=== PATIENT | female | born 1935 | race Caucasian/White ===

== ENCOUNTER 2017-02-06 23:16 | Emergency (ER) | payer OTHER, MEDICARE ==
[~2017-02-06] VITALS: Ht 167.6 cm; Wt 69.0 kg
[~2017-02-06 23:16] MED LIST: ALEN70TA4 PO; ALPR0.25 PO; ATOR-24 PO; AZIT-57 PO; CALC0.2510 PO; CARB25TA16 PO; ENAL1TAB31 PO; HYDR-4717 PO; INSDGIPEN SC; LEVO25TA PO; LSX/40 PO; METF500T5 PO; NVLGIPEN SC; OMEG120013 PO; SOTA120T PO; WARF1TAB6 PO; WARF5TAB7 PO
[2017-02-06 23:21] VITALS: TEMP 36.6; Ht 167.6 cm; Wt 69.0 kg
--- NOTE | 2017-02-06 23:34 | EMERGENCY ROOM VISIT NOTE ---
History Report prepared by Alix: Elio Phillips Under the Supervision of: Dr. Andrae Mina M.D. First contact with patient: 23:25 Chief Complaint: URINARY SYMPTOMS Stated Complaint: URINARY PROBLEMS History of Present Illness The patient is a 81 year old female who presents to the Emergency Room with complaints of persistent dysuria that started earlier today. The patient states that she is on her way to [place] from [place]. She stopped in [place] to visit her grandchildren. The patient notes that she has recently recovered from a GI bug. She denies fevers, back pain, abdominal pain, or any additional associated symptoms. Source of History: patient Onset: Earlier today Position: other (Urinary System ) Timing: other (Persistent ) Modifying Factors (Worsening): other (None) Associated Symptoms: No fevers, No abdominal pain, No back pain Review of Systems See HPI for pertinent positives & negatives. A total of 6 systems reviewed and were otherwise negative. Past Medical & Surgical Medical Problems: (1) Hypertension (2) Hypomagnesemia (3) Upper respiratory infection, acute (4) Urinary tract infection Family History FH: diabetes mellitus FH: hypertension Social History Smoking Status: Never Smoker Alcohol Use: none Drug Use: none Housing Status: lives alone Occupation Status: retired Current/Historical Medications Scheduled Alendronate Sodium (Fosamax), 70 MG PO WK Alprazolam (Xanax), 0.25 MG PO DAILY Atorvastatin (Lipitor), 20 MG PO QPM Azithromycin (Azithromycin), 250 MG PO QAM Calcitriol (Rocaltrol Cap), 0.25 MCG PO DAILY Cephalexin Monohydrate (Keflex), 500 MG PO TID Enalapril Maleate (Vasotec), 1 TAB PO BID Furosemide (Lasix), 40 MG PO DAILY Hydralazine Hcl (Apresoline), 50 MG PO BID Insulin Aspart (Novolog Flexpen), 0 UNITS SC ACHS Insulin Glargine (Lantus Solostar), 20 UNIT SC QAM Levodopa/Carbidopa (Sinemet Cr 25MG/100MG), 1 TAB PO HS Levothyroxine Sodium (Synthroid), 25 MCG PO DAILY Metformin Hcl Er (Glucophage Er), 500 MG PO DAILY [place]-3 Fatty Acids (Fish Oil), 1,200 MG PO DAILY@1400 Sotalol Hcl (Sotalol Hcl), 120 MG PO BID Warfarin Sod (Jantoven), 1 MG PO 5XWK Warfarin Sod (Jantoven), 5 MG PO DAILY Allergies Coded Allergies: Levofloxacin (Unverified Allergy, Unknown, NAUSEA, 08/21/15) Propofol (Unverified Allergy, Unknown, NAUSEA, 08/21/15) Physical Exam Vital Signs Date Time Temp Pulse Resp B/P (MAP) Pulse Ox O2 Delivery O2 Flow Rate FiO2 02/06/17 23:56 62 20 190/85 96 Room Air 02/06/17 23:21 36.6 85 18 185/95 96 Room Air Physical Exam GENERAL: Patient is anxious appearing, in minimal distress. HEENT: No acute trauma, normocephalic atraumatic, mucous membranes moist, no nasal congestion, no scleral icterus. NECK: No stridor, no adenopathy, no meningismus, trachea is midline. LUNGS: No dyspnea. Clear to auscultation and equal bilaterally. No wheeze, no rhonchi. HEART: Regular rate and rhythm. No murmurs, rubs, gallops appreciated. ABDOMEN: Soft, nontender, bowel sounds positive, no masses appreciated, no peritonitis. BACK: No midline tenderness, no CVA tenderness EXTREMITIES: Normal motion all extremities, no cyanosis, no edema. NEUROLOGIC: Alert and oriented, no acute motor or sensory deficits, no focal weakness, cranial nerves grossly intact. SKIN: No rash, no jaundice, no diaphoresis. Medical Decision & Procedures Laboratory Results Test 02/06/17 23:33 Urine Color YELLOW Urine Appearance CLEAR (CLEAR) Urine pH 5.0 (4.5-7.5) Urine Specific [place] 1.009 (1.000-1.030) Urine Protein NEG (NEG) Urine Glucose (UA) NEG (NEG) Urine Ketones NEG (NEG) Urine Occult Blood TRACE (NEG) Urine Nitrite NEG (NEG) Urine Bilirubin NEG (NEG) Urine Urobilinogen NEG (NEG) Urine Leukocyte Esterase SMALL (NEG) Urine WBC (Auto) 5-10 /hpf (0-5) Urine RBC (Auto) 0-4 /hpf (0-4) Urine Hyaline Casts (Auto) 0 /lpf (0-5) Urine Epithelial Cells (Auto) >30 /lpf (0-5) Urine Bacteria (Auto) NEG (NEG) Urine Renal Epithelial Cells /lpf (0-5) Laboratory results as reviewed by me. Medications Administered Medications (Trade) Dose Ordered Sig/Herbert Route Start Time Stop Time Status Last Admin Dose Admin Cephalexin Monohydrate (Keflex Cap) 500 mg NOW ONCE PO 02/06/17 23:45 02/06/17 23:46 DC 02/06/17 23:54 500 MG ED Course 2327: The patient was evaluated in room A11. A complete history and physical exam was performed. 2345: Ordered Keflex Cap 500 mg PO. 2343: Reevaluated the patient. She is comfortable with treating urine infection. Notes previously using Keflex without problem. Discussed results and discharge instructions: She verbalized understanding and agreement. The patient is ready for discharge. Medical Decision Differential: UTI, Urethritis, Pyelonephritis, STI, Herpetic, Vaginitis, Hyperglycemia, Yeast, PID, Cystitis, Hemorrhagic Cystitis, amongst other pathologies entertained. Medication Reconciliation: I attest that I have personally reviewed the patient 's current medication list. Blood pressure screening: Patient was found to have an elevated blood pressure and was referred to their primary doctor for recheck and further treatment. 81 yr old female arrives with complaint of urinary burning/frequency following episode of diarrheal illness. History of UTIs for which Keflex works well and patient notes this is similar. UA with some luek esterase though not blatantly positive, but with symptoms I think it reasonable to treat with abx. She is comfortable with this plan. She is not septic and has no other acute symptoms. RTED if wosening or other concerns. Stable and looks well at discharge. Impression Primary Impression: Urinary tract infection Scribe Attestation The scribe's documentation has been prepared under my direction and personally reviewed by me in its entirety. I confirm that the note above accurately reflects all work, treatment, procedures, and medical decision making performed by me. Departure Information Dispostion Home / Self-Care Prescriptions Cephalexin Monohydrate (KEFLEX) 500 Mg Cap 500 MG PO TID, #15 CAP Prov: Andrae Mina M.D. 02/06/17 Referrals No Doctor, Assigned (PCP) Forms HOME CARE DOCUMENTATION FORM, IMPORTANT VISIT INFORMATION Patient Instructions My [facility], UTI
[2017-02-06] MEDS ORDERED: CEPH500C2 PO (23:44)
[2017-02-06] MEDS ORDERED: CEPHALEXIN MONOHYDRATE 250 MG CAP PO ONE (23:45)
[2017-02-06 23:51] LABS: URINE APPEARANCE CLEAR (CLEAR); URINE BILIRUBIN NEG (NEG); URINE COLOR YELLOW; URINE EPITHELIAL CELL AUTO >30 /lpf (0-5); URINE NITRITE NEG (NEG); URINE SPECIFIC GRAVITY 1.009 (1.000-1.030); UROBILINOGEN NEG (NEG); ZZUR CULT IF INDIC CLEAN CATCH NO
[2017-02-06 23:54] LABS: MANUAL MICROSCOPIC REQUIRED? NO; REVIEW REQ? YES
[2017-02-06 23:56] VITALS: BP 190/85; PULSE 62; O2SAT 96
== END 2017-02-07 00:10 | disposition home or self-care (01) ==
LOC: C.EDB 23:18 → C.EDA 02-07 00:10
DX: N39.0 Urinary tract infection, site not specified (principal)

== ENCOUNTER 2017-08-19 20:50 | Inpatient (IN) | payer OTHER, MEDICARE ==
[~2017-08-19] VITALS: Ht 167.6 cm; Wt 72.6 kg
[~2017-08-19 20:50] MED LIST changes: -ATOR-24 PO
[2017-08-19 21:45] LABS: BASO % 0.1 %; BASO ABS # 0.01 K/uL (0-0.2); COMPLETE YES; EOS % 0.6 %; IG% 1.3 %; LYMPH % 14.8 %; LYMPH ABS # 1.38 K/uL (1.2-3.4); MEAN CELL VOLUME 88.9 fL (80-100); MEAN CORPUSCULAR HEMOGLOBIN 30.5 pg (25-34); MEAN CORPUSCULAR HGB CONC 34.3 g/dl (32-36); MEAN PLATELET VOLUME 9.3 fL (7.4-10.4); MONO % 10.1 %; NEUT % 73.1 %; PLATELET COUNT 140 K/uL (130-400); RED BLOOD COUNT 4.16 M/uL (4.2-5.4); WHITE BLOOD COUNT 9.35 K/uL (4.8-10.8)
[2017-08-19] MEDS ORDERED: INSDGI SC (21:52)
[2017-08-19] MEDS ORDERED: OMEG10007 PO (21:52)
[2017-08-19] MEDS ORDERED: CEFD300C3 PO (21:52)
[2017-08-19] MEDS ORDERED: NVLG SQ (21:52)
[2017-08-19] MEDS ORDERED: LISI40TA PO (21:52)
[2017-08-19] MEDS ORDERED: DILT360C23 PO (21:52)
[2017-08-19 22:02] LABS: INR 2.7 (0.9-1.1); PROTHROMBIN TIME (PATIENT) 27.8 SECONDS (9.0-12.0)
[2017-08-19 22:16] LABS: ALKALINE PHOSPHATASE 110 U/L (45-117); ALT/SGPT 39 U/L (12-78); BLOOD UREA NITROGEN 56 mg/dl (7-18); BUN/CREATININE RATIO 37.9 (10-20); CALCIUM 8.8 mg/dl (8.5-10.1); CARBON DIOXIDE 26 mmol/L (21-32); CHLORIDE 104 mmol/L (98-107); CKMB/CK RATIO 3.9 (0-3.0); CREATININE 1.48 mg/dl (0.60-1.20); GLUCOSE 266 mg/dl (70-99)
[2017-08-19 22:20] LABS: AST/SGOT 13 U/L (15-37); POTASSIUM 5.1 mmol/L (3.5-5.1); SODIUM 139 mmol/L (136-145)
[2017-08-19] MEDS ORDERED: SODIUM CHLORIDE 0.9% 500ML 500 ML IV STA (22:31)
--- NOTE | 2017-08-19 22:34 | DIAGNOSTIC IMAGING REPORT ---
LEFT LOWER EXTREMITY VENOUS DOPPLER HISTORY: Left leg swelling. COMPARISON STUDY: None. FINDINGS: Extensive DVT seen throughout the left lower extremity deep venous systems including the visualized left iliac vein. The thrombus within the left superficial femoral vein and distal veins is occlusive. IMPRESSION: Extensive DVT throughout the left lower extremity deep venous system including the left iliac veins. Electronically signed by: Javid Gil M.D. 08/19/2017 10:32 PM Dictated Date/Time: 08/19/2017 10:30 PM
[2017-08-19] MEDS ORDERED: ATOR-24 PO (22:45)
[2017-08-19] MEDS ORDERED: OPTIRAY 320 IV PRN (22:45)
--- NOTE | 2017-08-19 22:49 | DIAGNOSTIC IMAGING REPORT ---
CHEST ONE VIEW PORTABLE HISTORY: Atypical CHEST PAIN COMPARISON: Chest 08/21/2015. FINDINGS: Left-sided dual-chamber pacemaker. The heart is normal in size. The left lung is clear. 13 mm nodular density within the right midlung zone. No focal lung consolidations. No evidence for pulmonary edema. No pleural effusions. No pneumothorax. IMPRESSION: 1. No acute process within the chest. A 1.3 cm nodular density within the right midlung zone. Follow-up chest CT is recommended to exclude a pulmonary lesion. Electronically signed by: Javid Gil M.D. 08/19/2017 10:48 PM Dictated Date/Time: 08/19/2017 10:25 PM
--- NOTE | 2017-08-19 23:01 | DIAGNOSTIC IMAGING REPORT ---
CHEST CTA for PULMONARY ARTERIES CT DOSE: 323.95 mGy.cm HISTORY: Atypical chest pain. Positive DVT. TECHNIQUE: Multiaxial CT images of the chest were performed following the intravenous administration of contrast to evaluate the pulmonary arteries. Maximal intensity projection images were also obtained. A dose lowering technique was utilized adhering to the principles of ALARA. COMPARISON STUDY: Chest 08/19/2017. FINDINGS: Normal caliber thoracic aorta with no evidence for dissection. No pleural or pericardial effusions. Left-sided pacemaker. The heart is normal in size. The left pulmonary arteries are patent. Multiple filling defects seen within the segmental and subsegmental branches within the right lung consistent with pulmonary emboli. No evidence for right-sided heart strain this time. Mildly enlarged thyroid gland. No mediastinal or hilar lymphadenopathy. The visualized liver, spleen, and adrenal glands are unremarkable. A a few hypodense lesions within the kidneys with the largest in the left kidney measuring 2.5 cm. These likely represent cysts. The central airways are patent. No pneumothorax. Calcified granuloma seen within the left lower lobe. Multiple scattered cavitary nodules seen within the right lung. Dominant nodule within the right upper lobe anteriorly measures 1.3 cm. There are few scattered tree-in-bud nodular densities seen within the right middle lobe and lingula. There is also an 11 mm nodular density within the base of the lingula. IMPRESSION: 1. Right-sided pulmonary emboli. 2. Multiple scattered cavitary nodules seen predominantly within the right lung. Therefore, these favor septic pulmonary emboli. An infectious, inflammatory, or less likely neoplastic process could also have a similar appearance. Follow-up is recommended to ensure resolution. 3. There are also a few scattered tree-in-bud nodular opacities seen within the right middle lobe and lingula which favor a superimposed infectious bronchiolitis. Electronically signed by: Javid Gil M.D. 08/19/2017 10:59 PM Dictated Date/Time: 08/19/2017 10:48 PM
[2017-08-19] MEDS ORDERED: ACETAMINOPHEN 325 MG TAB PO PRN (23:15)
[2017-08-19] MEDS ORDERED: PROP20TA67 PO (23:28)
[2017-08-19] MEDS ORDERED: HEPARIN 25,000 UNIT/500ML D5W 500 ML IV PRN (23:45)
[2017-08-19] MEDS ORDERED: HEPARIN IV BOLUS 4,000 UNIT in SYRINGE 0 ML IV ONE (23:45)
[2017-08-20] VITALS (10 sets, daily range): BP systolic 111–163; BP diastolic 62–81; PULSE 58–83; TEMP 36.5–36.8; O2SAT 94–97; BMI 25.8
[2017-08-20] MEDS ORDERED: DEXTROSE 50% 50 ML SYR IV PRN (01:15)
[2017-08-20] MEDS ORDERED: GLUCAGON FOR INJ 1 MG VIAL SQ PRN (01:15)
[2017-08-20] MEDS ORDERED: GLUCOSE 10 TABS/TUBE PO PRN (01:15)
[2017-08-20] MEDS ORDERED: GLUCOSE 40% GEL 15 GM TUBE PO PRN (01:15)
[2017-08-20 06:48] LABS: HEMATOCRIT 32.6 % (37-47); MEAN CELL VOLUME 89.1 fL (80-100); MEAN CORPUSCULAR HEMOGLOBIN 29.8 pg (25-34); MEAN CORPUSCULAR HGB CONC 33.4 g/dl (32-36); MEAN PLATELET VOLUME 9.2 fL (7.4-10.4); PLATELET COUNT 109 K/uL (130-400); RED BLOOD COUNT 3.66 M/uL (4.2-5.4); WHITE BLOOD COUNT 6.34 K/uL (4.8-10.8)
[2017-08-20 07:06] LABS: PARTIAL THROMBOPLASTIN RATIO 3.4
[2017-08-20 07:19] LABS: BUN/CREATININE RATIO 47.4 (10-20); CALCIUM 8.4 mg/dl (8.5-10.1); CREATININE 0.99 mg/dl (0.60-1.20); POTASSIUM 4.4 mmol/L (3.5-5.1)
[2017-08-20] MEDS: PROPRANOLOL HCL 20 MG TAB PO SCH ×2 (07:36→20:45)
[2017-08-20] MEDS: DILTIAZEM HCL 180 MG CAPCR PO SCH (07:36)
[2017-08-20] MEDS: SOTALOL HCL 80 MG TAB PO SCH ×2 (07:36→20:44)
[2017-08-20] MEDS: LISINOPRIL 40 MG TAB PO SCH (07:37)
[2017-08-20] MEDS: INSULIN ASPART 100 UNITS/ML 3 ML PEN SQ SCH ×2 (07:40→17:14)
[2017-08-20] MEDS: INSULIN GLARGINE SOLOSTAR 100 UNITS/ML 3 ML PEN SC SCH (07:42)
--- NOTE | 2017-08-20 07:42 | History and Physical ---
History & Physical Date & Time of Service: Aug 19, 2017 at 22:57 . Chief Complaint: pain and swelling left leg . Primary Care Physician: No Doctor, Assigned . History of Present Illness Source: patient, family, hospital records 82 YO female who resides in [place] in the summer and [place] in the winter, visiting family in [place] for the holidays. History of atrial fibrillation, hypertension, diabetes, and other problems noted below. On warfarin for atrial fibrillation. Had a series of epidural injections in June and early July. Warfarin was held for each injection, the restarted. INR about 3 days prior to her departure was 1.9. Traveled from [place] --> [place] --> [place] 6 days prior to admission. Noted some left groin pain after arriving. Over the past several days developed swelling and increasing pain in her left lower extremity. Today she felt somewhat dyspneic. No fever. No pleuritic chest pain or anginal symptoms. No cough, hemoptysis. . Past Medical/Surgical History Chronic and Resolved Medical Problems: (1) Atrial fibrillation Status: Chronic (2) CHF (congestive heart failure) noted in old records, details uncertain Status: Chronic (3) Diabetes mellitus, type 2 Status: Chronic (4) Dyslipidemia Status: Chronic (5) Essential tremor Status: Chronic (6) Hypertension Status: Chronic (7) Hypothyroidism treated in past, but replacement discontinued Status: Chronic (8) Osteoporosis Status: Chronic Surgical Problems: (1) Status post cardiac pacemaker procedure Status: Chronic (2) Status post catheter ablation of atrial fibrillation Status: Chronic (3) Status post hysterectomy Permanent Comment: with BSO; fibroid Status: Chronic (4) Status post right knee replacement Status: Chronic (5) Status post tonsillectomy Status: Chronic . Family History MOTHER COPD (chronic obstructive pulmonary disease) Congestive heart failure Coronary artery disease BROTHER DVT Colon cancer SISTER DVT Lung cancer Social History Smoking Status: Never Smoker Alcohol Use: occasionally Drug Use: none Occupational Status: retired Allergies Coded Allergies: Levofloxacin (Unverified Allergy, Unknown, NAUSEA, 08/21/15) Propofol (Unverified Allergy, Unknown, NAUSEA, 08/21/15) Home Medications Scheduled Atorvastatin (Lipitor), 20 MG PO QPM Diltiazem HCl (Diltiazem HCl ER), 360 MG PO DAILY Fish Oil ([place]-3), 1 CAP PO BID Insulin Aspart (Novolog), 10 UNITS SQ BIDM Insulin Glargine (Lantus), 40 SC QAM Lisinopril (Zestril), 40 MG PO BID Propranolol (Inderal), 20 MG PO BID Sotalol Hcl (Sotalol Hcl), 120 MG PO BID Warfarin Sod (Jantoven), 5 MG PO DAILY Scheduled PRN Alprazolam (Xanax), 0.25 MG PO DAILY PRN for Anxiety Furosemide (Lasix), 40 MG PO DAILY PRN for edema Review of Systems Constitutional: No fever, No chills, No sweats, No weight loss Eyes: No worsening of vision ENT: No nasal symptoms Respiratory: + problem reported (per HPI) Cardiovascular: + problem reported (per HPI) Abdomen: No nausea, No vomiting, No diarrhea, No constipation Musculoskeletal: + joint pain (back pain) Genitourinary - Female: No dysuria, No hematuria Neurologic: + problem reported (mild diabetic neuropathy; no headaches) Endocrine: + problem reported (blood sugars recently elevated (since epidural injection); polyuria) Hematologic / Lymphatic: + abnormal bleeding/bruising (bruises easily), No swollen lymph nodes Physical Exam Vital Signs Date Time Temp Pulse Resp B/P (MAP) Pulse Ox O2 Delivery O2 Flow Rate FiO2 08/19/17 22:43 88 20 154/95 93 Room Air 08/19/17 21:35 60 22 141/63 96 Room Air 08/19/17 21:31 96 Room Air 08/19/17 21:31 96 Room Air 08/19/17 21:17 63 08/19/17 21:00 37.0 83 20 129/63 96 Room Air General Appearance: WD/WN, no apparent distress Head: normocephalic, atraumatic Eyes: normal inspection, PERRL, EOMI, sclerae normal, + pertinent finding ( conjunctivae clear) ENT: hearing grossly normal, pharynx normal Neck: supple, no adenopathy, thyroid normal, no JVD, trachea midline Respiratory/Chest: lungs clear, no respiratory distress, no accessory muscle use Cardiovascular: regular rate, rhythm, no edema, no gallop, no JVD, no murmur, normal peripheral pulses Abdomen/GI: normal bowel sounds, non tender, soft, no organomegaly Extremities/Musculoskelatal: + pertinent finding (moderate swelling left lower extremity proximally and distally with thigh and calf tenderness) Neurologic/Psych: 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 II-XII nml as tested (PERRL, EOMI, no facial palsy, no dysarthria), alert, oriented x 3, + pertinent finding (resting tremor) Skin: normal color, warm/dry, no rash Lymphatic: no adenopathy (cervical, supraclavicular) Diagnostics Laboratory Results Results Past 24 Hours Test 08/19/17 21:30 Range/Units White Blood Count 9.35 4.8-10.8 K/uL Red Blood Count 4.16 4.2-5.4 M/uL Hemoglobin 12.7 12.0-16.0 g/dL Hematocrit 37.0 37-47 % Mean Corpuscular Volume 88.9 80-100 fL Mean Corpuscular Hemoglobin 30.5 25-34 pg Mean Corpuscular Hemoglobin Concent 34.3 32-36 g/dl Platelet Count 140 130-400 K/uL Mean Platelet Volume 9.3 7.4-10.4 fL Neutrophils (%) (Auto) 73.1 % Lymphocytes (%) (Auto) 14.8 % Monocytes (%) (Auto) 10.1 % Eosinophils (%) (Auto) 0.6 % Basophils (%) (Auto) 0.1 % Neutrophils # (Auto) 6.84 1.4-6.5 K/uL Lymphocytes # (Auto) 1.38 1.2-3.4 K/uL Monocytes # (Auto) 0.94 0.11-0.59 K/uL Eosinophils # (Auto) 0.06 0-0.5 K/uL Basophils # (Auto) 0.01 0-0.2 K/uL RDW Standard Deviation 45.7 36.4-46.3 fL RDW Coefficient of Variation 14.1 11.5-14.5 % Immature Granulocyte % (Auto) 1.3 % Immature Granulocyte # (Auto) 0.12 0.00-0.02 K/uL Prothrombin Time 27.8 9.0-12.0 SECONDS Prothromb Time International Ratio 2.7 0.9-1.1 Sodium Level 139 136-145 mmol/L Potassium Level 5.1 3.5-5.1 mmol/L Chloride Level 104 98-107 mmol/L Carbon Dioxide Level 26 21-32 mmol/L Anion Gap 9.0 3-11 mmol/L Blood Urea Nitrogen 56 7-18 mg/dl Creatinine 1.48 0.60-1.20 mg/dl Est Creatinine Clear Calc Drug Dose 28.4 ml/min Estimated GFR () 38.4 Estimated GFR (Non- 33.1 BUN/Creatinine Ratio 37.9 10-20 Random Glucose 266 70-99 mg/dl Calcium Level 8.8 8.5-10.1 mg/dl Total Bilirubin 0.4 0.2-1 mg/dl Direct Bilirubin 0.1 0-0.2 mg/dl Aspartate Amino Transf (AST/SGOT) 13 15-37 U/L Alanine Aminotransferase (ALT/SGPT) 39 12-78 U/L Alkaline Phosphatase 110 45-117 U/L Total Creatine Kinase 56 26-192 U/L Creatine Kinase MB 2.2 0.5-3.6 ng/ml Creatine Kinase MB Ratio 3.9 0-3.0 Troponin I < 0.015 0-0.045 ng/ml Pro-B-Type Natriuretic Peptide 613 0-1800 pg/ml Total Protein 6.4 6.4-8.2 gm/dl Albumin 2.9 3.4-5.0 gm/dl Lipase 223 73-393 U/L Diagnostic Radiology CHEST ONE VIEW PORTABLE FINDINGS: Left-sided dual-chamber pacemaker. The heart is normal in size. The left lung is clear. 13 mm nodular density within the right midlung zone. No focal lung consolidations. No evidence for pulmonary edema. No pleural effusions. No pneumothorax. IMPRESSION: 1. No acute process within the chest. A 1.3 cm nodular density within the right midlung zone. Follow-up chest CT is recommended to exclude a pulmonary lesion. Electronically signed by: Javid Gil M.D. 08/19/2017 10:48 PM Dictated Date/Time: 08/19/2017 10:25 PM LEFT LOWER EXTREMITY VENOUS DOPPLER FINDINGS: Extensive DVT seen throughout the left lower extremity deep venous systems including the visualized left iliac vein. The thrombus within the left superficial femoral vein and distal veins is occlusive. IMPRESSION: Extensive DVT throughout the left lower extremity deep venous system including the left iliac veins. Electronically signed by: Javid Gil M.D. 08/19/2017 10:32 PM Dictated Date/Time: 08/19/2017 10:30 PM CHEST CTA for PULMONARY ARTERIES FINDINGS: Normal caliber thoracic aorta with no evidence for dissection. No pleural or pericardial effusions. Left-sided pacemaker. The heart is normal in size. The left pulmonary arteries are patent. Multiple filling defects seen within the segmental and subsegmental branches within the right lung consistent with pulmonary emboli. No evidence for right-sided heart strain this time. Mildly enlarged thyroid gland. No mediastinal or hilar lymphadenopathy. The visualized liver, spleen, and adrenal glands are unremarkable. A a few hypodense lesions within the kidneys with the largest in the left kidney measuring 2.5 cm. These likely represent cysts. The central airways are patent. No pneumothorax. Calcified granuloma seen within the left lower lobe. Multiple scattered cavitary nodules seen within the right lung. Dominant nodule within the right upper lobe anteriorly measures 1.3 cm. There are few scattered tree-in-bud nodular densities seen within the right middle lobe and lingula. There is also an 11 mm nodular density within the base of the lingula. IMPRESSION: 1. Right-sided pulmonary emboli. 2. Multiple scattered cavitary nodules seen predominantly within the right lung. Therefore, these favor septic pulmonary emboli. An infectious, inflammatory, or less likely neoplastic process could also have a similar appearance. Follow-up is recommended to ensure resolution. 3. There are also a few scattered tree-in-bud nodular opacities seen within the right middle lobe and lingula which favor a superimposed infectious bronchiolitis. Electronically signed by: Javid Gil M.D. 08/19/2017 10:59 PM Dictated Date/Time: 08/19/2017 10:48 PM . EKG EKG performed at 21:20 reviewed and demonstrated atrial paced rhythm at 60 / minute, no acute ST or T-wave changes. . Impression Assessment and Plan DVT LEFT LOWER EXTREMITY / PULMONARY EMBOLISM (present on admission) Presents with extensive DVT LLE + pulmonary embolism. Oxygenating well and hemodynamically stable. On warfarin with therapeutic INR of 2.7. Recent travelled from [place] to [place] via air. Warfarin had been held 3 weeks prior to admission for epidural injection, but was restarted and INR was 1.9 a few days before she traveled. No prior history of thromboembolic disease. Both siblings had history of DVT, both in the setting of malignancy. Patient has no personal history of malignancy, but chest CT demonstrates pulmonary nodules as noted below. Start IV heparin. Hold warfarin. Consult Hematology / Oncology and Pulmonary Medicine. PULMONARY NODULES Multiple pulmonary nodules noted on CT chest. Differential diagnosis includes septic emboli, other infectious etiologies, malignancy. No personal history of malignancy. Had hysterectomy / BSO for benign disease. Brother has history of colon Ca; patient had colonoscopy a few years ago with polyps, but no malignancy. Has had routine screening mammography. Check blood cultures. Check echo to look for signs of endocarditis (right-sided valvular or pacemaker lead). Consult Pulmonary Medicine. CHF Records from previous hospitalization here note CHF, but pt and family not aware of diagnosis. Takes lisinopril + PRN furosemide. Check echo. Obtain records from PCP / Cardiology when able. ATRIAL FIBRILLATION S/P catheter ablation. Continue sotalol. Anticoagulation management as discussed above. HYPERTENSION Hemodynamically stable. Continue lisinopril and sotalol. Follow and titrate Rx. ACUTE KIDNEY INJURY Serum creatinine 1.48 compared to baseline of 1.1. Taking furosemide this week for LLE swelling. Hold furosemide. IV fluids. Follow. DM TYPE 2 Usually well-controlled, but blood sugars high since recent epidural injections. Random blood sugar in ED 266. Check Hgb A1C. Lantus / NovoLog per protocol. DYSLIPIDEMIA Continue atorvastatin. HYPOTHYROIDISM History of hypothyroidism on replacement. Followed by Endocrinology. No longer requiring therapy. ESSENTIAL TREMOR Continue propranolol. VTE PROPHYLAXIS IV heparin for acute DVT / PE as discussed above. RESUSCITATION STATUS Discussed with patient. She has a living will. She would like resuscitation attempted in the event of a cardiopulmonary arrest if there is a reasonable chance of a meaningful recovery, but does not want prolonged extraordinary measures if prognosis is poor. Therefore, code status = "Level 1" (full resuscitation). DISPOSITION Admit to Telemetry Unit. Discharge disposition to be determined. Medical follow-up with PCP in [place]. . VTE Prophylaxis Given or contraindicated: Other Anticoagulation (IV heparin)
--- NOTE | 2017-08-20 12:18 | Progress Note ---
Medicine Progress Note Date & Time of Visit: Aug 20, 2017 at 11:35. Subjective Pt was seen and examined Lying in bed with no distress Pt said that her lower extremities pain improved She denies any chest pain, palpitation, dizziness and SOB Objective Last 8 Hrs Date Time Temp Pulse Resp B/P (MAP) Pulse Ox O2 Delivery O2 Flow Rate FiO2 08/20/17 08:01 96 Room Air 08/20/17 07:45 36.8 60 20 116/69 (85) 97 Room Air 08/20/17 04:00 96 Room Air Physical Exam: General- No acute distress Head- atraumatic Eyes- PERRL, EOMI ENT- oropharynx clear Neck- supple, no JVD Lungs- No wheezing Heart- regular rhythm Abdomen- normal bowel sounds, soft Extremities- +edema LLE, +LLE tenderness Neuro- alert, oriented x 3; PERRL, EOMI Skin- warm & dry Laboratory Results: Last 24 Hours Test 08/19/17 21:30 08/20/17 06:18 08/20/17 07:30 White Blood Count 9.35 K/uL 6.34 K/uL Red Blood Count 4.16 M/uL 3.66 M/uL Hemoglobin 12.7 g/dL 10.9 g/dL Hematocrit 37.0 % 32.6 % Mean Corpuscular Volume 88.9 fL 89.1 fL Mean Corpuscular Hemoglobin 30.5 pg 29.8 pg Mean Corpuscular Hemoglobin Concent 34.3 g/dl 33.4 g/dl Platelet Count 140 K/uL 109 K/uL Mean Platelet Volume 9.3 fL 9.2 fL Neutrophils (%) (Auto) 73.1 % Lymphocytes (%) (Auto) 14.8 % Monocytes (%) (Auto) 10.1 % Eosinophils (%) (Auto) 0.6 % Basophils (%) (Auto) 0.1 % Neutrophils # (Auto) 6.84 K/uL Lymphocytes # (Auto) 1.38 K/uL Monocytes # (Auto) 0.94 K/uL Eosinophils # (Auto) 0.06 K/uL Basophils # (Auto) 0.01 K/uL RDW Standard Deviation 45.7 fL 46.0 fL RDW Coefficient of Variation 14.1 % 14.3 % Immature Granulocyte % (Auto) 1.3 % Immature Granulocyte # (Auto) 0.12 K/uL Prothrombin Time 27.8 SECONDS Prothromb Time International Ratio 2.7 Activated Partial Thromboplast Time 26.4 SECONDS 89.5 SECONDS Partial Thromboplastin Ratio 1.0 3.4 Sodium Level 139 mmol/L 139 mmol/L Potassium Level 5.1 mmol/L 4.4 mmol/L Chloride Level 104 mmol/L 108 mmol/L Carbon Dioxide Level 26 mmol/L 27 mmol/L Anion Gap 9.0 mmol/L 4.0 mmol/L Blood Urea Nitrogen 56 mg/dl 47 mg/dl Creatinine 1.48 mg/dl 0.99 mg/dl Est Creatinine Clear Calc Drug Dose 28.4 ml/min 42.4 ml/min Estimated GFR () 38.4 62.4 Estimated GFR (Non- 33.1 53.8 BUN/Creatinine Ratio 37.9 47.4 Random Glucose 266 mg/dl 170 mg/dl Calcium Level 8.8 mg/dl 8.4 mg/dl Total Bilirubin 0.4 mg/dl Direct Bilirubin 0.1 mg/dl Aspartate Amino Transf (AST/SGOT) 13 U/L Alanine Aminotransferase (ALT/SGPT) 39 U/L Alkaline Phosphatase 110 U/L Total Creatine Kinase 56 U/L Creatine Kinase MB 2.2 ng/ml Creatine Kinase MB Ratio 3.9 Troponin I < 0.015 ng/ml Pro-B-Type Natriuretic Peptide 613 pg/ml Total Protein 6.4 gm/dl Albumin 2.9 gm/dl Lipase 223 U/L Bedside Glucose 166 mg/dl Date/Time Source Procedure Growth Status 08/20/17 01:00 Blood Blood Culture Pending Received 08/20/17 00:55 Blood Blood Culture Pending Received Assessment & Plan DVT LEFT LOWER EXTREMITY / PULMONARY EMBOLISM Doppler U/S showed extensive DVT throughout the left lower extremity deep venous system including the left iliac veins. CTA chest showed right-sided pulmonary emboli. On coumadin and INR 2.7 on admission Provoked DVT/PE due recent hold on coumadin for epidural injection and multiple travel trip No history malignancy No prior history of thromboembolic disease. On heparin drip Hematology and pulmonology on board Case discussed with hematology recommend to get a CT scan abdomen Family wants to switch to eliquis Discussed with pharmacy will start eliquis once INR below 2 Echo pending PULMONARY NODULES CTA chest showed multiple scattered cavitary nodules and few scattered tree-in- bud nodular opacities Possible due infectious etiology, septic emboli or malignancy Pulmonary on board recommended repeat CT chest in 6 weeks Will treat with empirical antibiotic rocephin/doxy Echo pending to r/o endocarditis No Bronchoscopy for now as per Pulm Blood cx pending Sputum cx if able to collect CHF No signs of acute heart failure BNP wnl Previous hospitalization record showed hx CHF (Family and pt not aware as per admitting physician) Furosemide on hold Continue lisinopril Echo pending ATRIAL FIBRILLATION S/P catheter ablation. Rate control Continue sotalol and cardizem HYPERTENSION On lisinopril 40mg BID, cardizem and sotalol. Continue monitor BP ACUTE KIDNEY INJURY Serum creatinine 1.48 compared to baseline of 1.1. Creatine 0.9. Hold furosemide. Received IVF Continue monitor BMP DM TYPE 2 Elevated BS Hgb A1C pending Lantus / NovoLog per protocol. Continue monitor BS DYSLIPIDEMIA On atorvastatin. HYPOTHYROIDISM Not on any medication Stable ESSENTIAL TREMOR Continue propranolol. VTE PROPHYLAXIS On IV heparin RESUSCITATION STATUS FULL CODE DISPOSITION Continue Telemetry Unit. Consultants: Oncology Pulmonary Current Inpatient Medications: Current Inpatient Medications Medications (Trade) Dose Ordered Sig/Herbert Route Start Time Stop Time Status Last Admin Dose Admin Ioversol (Optiray 320) 100 ml UD PRN IV 08/19/17 22:45 08/23/17 22:44 Acetaminophen (Tylenol Tab) 650 mg Q4H PRN PO 08/19/17 23:15 09/18/17 23:14 Alprazolam (Xanax Tab) 0.25 mg DAILY PRN PO 08/19/17 23:30 09/18/17 23:29 Atorvastatin Calcium (Lipitor Tab) 20 mg QPM PO 08/20/17 21:00 09/19/17 20:59 Insulin Aspart (novoLOG ASPART) 10 units BIDM SQ 08/20/17 07:30 09/19/17 07:59 08/20/17 07:40 10 UNITS Insulin Glargine (Lantus Solostar Pen) 40 units QAM SC 08/20/17 09:00 09/19/17 08:59 08/20/17 07:42 40 UNITS Lisinopril (Zestril Tab) 40 mg BID PO 08/20/17 09:00 09/19/17 08:59 08/20/17 07:37 40 MG Propranolol HCl (Inderal Tab) 20 mg BID PO 08/20/17 09:00 09/19/17 08:59 08/20/17 07:36 20 MG Diltiazem HCl (Cardizem Cd Cap) 360 mg QAM PO 08/20/17 09:00 09/19/17 08:59 08/20/17 07:36 360 MG Sotalol HCl (Betapace Tab) 120 mg BID PO 08/20/17 09:00 09/19/17 08:59 08/20/17 07:36 120 MG Heparin Sodium/ Dextrose 500 ml @ 12 mls/hr Q24H PRN IV 08/19/17 23:45 09/18/17 23:44 08/20/17 00:18 15 MLS/HR Glucose (Glucose 40% Gel) 15-30 GRAMS 15 GRAMS... UD PRN PO 08/20/17 01:15 09/19/17 01:14 Glucose (Glucose Chew Tab) 4-8 Tablets 4 Tabl... UD PRN PO 08/20/17 01:15 09/19/17 01:14 Dextrose (Dextrose 50% 50ML Syringe) 25-50ML OF 50% DW IV FOR... UD PRN IV 08/20/17 01:15 09/19/17 01:14 Glucagon (Glucagon Inj) 1 mg UD PRN SQ 08/20/17 01:15 09/19/17 01:14
[2017-08-20] MEDS ORDERED: DOXYCYCLINE HYCLATE 100 MG CAP PO ONE (12:30)
[2017-08-20] MEDS: CEFTRIAXONE SOD INJ 1 GM in DEXTROSE 5% ADD-VANTAGE 50ML 50 ML IV SCH (12:30)
--- NOTE | 2017-08-20 13:30 | ECHOCARDIOGRAM REPORT ---
*NOTICE TO RECEIVING REPUBLICAN AGENCY This information is strictly Confidential and protected under [place] law. [place] law prohibits you from making any further disclosure of this information unless further disclosure is expressly permitted by the written consent of the person to whom it pertains or is authorized by law. A general authorization for the release of medical or other information is not sufficient for this purpose. Hospital accepts no responsibility if the information is made available to any other person, INCLUDING THE PATIENT. Interpretation Summary * Name: GISELE SINGH Study Date: 08/20/2017 08:21 AM BP: 116/69 mmHg * Patient Location: C.2T\S\S239\S\2 HR: 60 * : 1935 (M/d/yyyy) Gender: Female Height: 65 in * Age: 82 yrs Ethnicity: CA Weight: 155 lb * Ordering Physician: Saeed Pena * Performed By: Bridgett Hauser RDCS * * Reason For Study: Pulmonary Embolus, possibly septic. * BSA: 1.8 m2 * -- Conclusions -- * The left ventricle is normal in size. * There is borderline concentric left ventricular hypertrophy. * Ejection Fraction = 60-65%. * Grade I diastolic dysfunction, (abnormal relaxation pattern). * Aortic valve sclerosis mild, without significant aortic valvular stenosis. * Mild aortic regurgitation. * The right ventricular systolic function is normal. * The left atrial size is normal. * Right atrial size is normal. * There is no evidence of pulmonary hypertension. The PA systolic pressure is less than 36 mmHg. Procedure Details * A complete two-dimensional transthoracic echocardiogram was performed (2D, M-mode, Doppler and color flow Doppler). Left Ventricle * The left ventricle is normal in size. * There is borderline concentric left ventricular hypertrophy. * Ejection Fraction = 60-65%. * Left ventricular systolic function is normal. * The left ventricular wall motion is normal. Right Ventricle * The right ventricle is normal size. * The right ventricular systolic function is normal. Atria * The left atrial size is normal. * Right atrial size is normal. Mitral Valve * The mitral valve anatomy is normal. * Significant mitral regurgitation is absent. Tricuspid Valve * The tricuspid valve anatomy is normal. * Significant tricuspid regurgitation is absent. Aortic Valve * The aortic valve is trileaflet. * Aortic valve sclerosis mild, without significant aortic valvular stenosis. * Mild aortic regurgitation. Pulmonic Valve * The pulmonic valve is not well visualized. Great Vessels * The aortic root and proximal ascending aorta are normal sized. * There is no evidence of pulmonary hypertension. The PA systolic pressure is less than 36 mmHg. Left Ventricular Diastolic Function * Grade I diastolic dysfunction, (abnormal relaxation pattern). MMode 2D Measurements and Calculations IVSd 1.1 cm IVSs 1.5 cm LVIDd 4.1 cm LVIDs 2.5 cm LVPWd 1.1 cm LVPWs 1.6 cm IVS/LVPW 0.98 FS 37.5 % EDV(Teich) 72.3 ml ESV(Teich) 23.1 ml EF(Teich) 68.1 % EDV(cubed) 66.7 ml ESV(cubed) 16.3 ml EF(cubed) 75.6 % % IVS thick 41.2 % % LVPW thick 43.3 % LV mass(C)d 147.0 grams LV mass(C)dI 82.8 grams/m\S\2 LV mass(C)s 136.1 grams LV mass(C)sI 76.7 grams/m\S\2 SV(Teich) 49.3 ml SI(Teich) 27.8 ml/m\S\2 SV(cubed) 50.5 ml SI(cubed) 28.4 ml/m\S\2 Ao root diam 2.8 cm Ao root area 6.4 cm\S\2 ACS 1.9 cm LA dimension 3.5 cm LA/Ao 1.2 LVAd ap4 26.4 cm\S\2 LVLd ap4 8.5 cm EDV(MOD-sp4) 69.3 ml EDV(sp4-el) 69.8 ml LVAs ap4 13.1 cm\S\2 LVLs ap4 6.8 cm ESV(MOD-sp4) 24.8 ml ESV(sp4-el) 21.6 ml EF(MOD-sp4) 64.1 % EF(sp4-el) 69.1 % LVAd ap2 25.5 cm\S\2 LVLd ap2 8.0 cm EDV(MOD-sp2) 68.7 ml EDV(sp2-el) 68.7 ml LVAs ap2 12.1 cm\S\2 LVLs ap2 6.2 cm ESV(MOD-sp2) 21.4 ml ESV(sp2-el) 20.4 ml EF(MOD-sp2) 68.8 % EF(sp2-el) 70.4 % LVLd %diff -5.35 % EDV(MOD-bp) 69.8 ml LVLs %diff -10.52 % ESV(MOD-bp) 23.9 ml EF(MOD-bp) 65.7 % SV(MOD-sp4) 44.5 ml SI(MOD-sp4) 25.0 ml/m\S\2 SV(MOD-sp2) 47.3 ml SI(MOD-sp2) 26.6 ml/m\S\2 SV(MOD-bp) 45.9 ml SI(MOD-bp) 25.8 ml/m\S\2 SV(sp4-el) 48.3 ml SI(sp4-el) 27.2 ml/m\S\2 SV(sp2-el) 48.3 ml SI(sp2-el) 27.2 ml/m\S\2 Doppler Measurements and Calculations MV E max john 77.1 cm/sec MV A max john 111.6 cm/sec MV E/A 0.69 MV dec time 0.28 sec Ao V2 max 177.2 cm/sec Ao max PG 12.6 mmHg Ao max PG (full) 3.1 mmHg AI max john 283.4 cm/sec AI max PG 32.1 mmHg AI dec slope 181.9 cm/sec\S\2 AI P1/2t 456.2 msec LV V1 max PG 9.5 mmHg LV V1 max 153.9 cm/sec PA V2 max 124.1 cm/sec PA max PG 6.2 mmHg TR max john 272.1 cm/sec
--- NOTE | 2017-08-20 13:38 | Pulmonary Consultation ---
History General Date of Service: Aug 20, 2017. Stated Complaint: Deep Venous Thrombosis, Pulmonary Embolism HPI The patient is a 82 year old female who presents to [facility] with complaints of Deep Venous Thrombosis, Pulmonary Embolism. The patient's primary care provider is No Doctor, Assigned. Mrs. Aponte is an 82 year old female from [facility] visiting family for the holidays in [place]. She presents with one month history of worsening lower extremity swelling and pain in groin. Yesterday, she was mildly short of breath and family was concerned so she presented to the ER for further evaluation. Patient is very active and drives extensively. She lives in [place] in the Summer and drives to [place] for the winter. She is on custodial anticoagulation for atrial fibrillation. She has had intermittent discontinuation due to spinal injections for chronic back pain. She follows closely with PMD in [place] and [place] for INR checks. She denies any fever, chills, chest pain, cough, hemoptysis, or sick contacts. She denies any lightheadedness or dizziness. She does state that she has had previous history of pulmonary nodules and was seen by steam tender in [place]. She was told that she had some "scar tissue." She does have history of yearly bronchitis, but otherwise no pulmonary symptoms on a regular basis. She denies any orthopnea , or paroxsymal dyspnea. She denies any change in appetite or weight loss. She denies any bowel or genitourinary symptoms. Upon arrival to the ER, her temperature was 37, pulse 83, BP 129/63, SaO2 96% on room air. Laboratory data significant for BUN 56 and creatinine 1.48. Repeat this morning improved at 47 and 0.99 respectively. Random glucose 266, AST 13, Troponin < 0.015, pro-BNP 613. Albumin 2.9. INR 2.7.Blood cultures are pending. Chest xray showed a 1.3 cm nodular density within the right midlung zone. CTA of chest showed right pulmonary embolism in the segmental and subsegmental arteries of the right. CT chest also showed a multiple pulmonary nodules, most notably a 1.3 cm cavitary nodule in the right RUL and 1.1 solid nodule in the lingula. Extensive DVT was found in lower extremity on the left. She was admitted for acute pulmonary embolism work up pulmonary nodules. She does have family history of pulmonary embolism in brother and sister, both of had cancer though. Colon and lung cancer respectively. She denies any personal history of cancer. She is up to date with age appropriate cancer screening and pneumococcal vaccination. Historian: patient, family Onset: just prior to arrival Severity: mild Complaint Status: improved Review of Systems Constitutional: reports: as stated in HPI Eyes: reports: as stated in HPI ENT: reports: as stated in HPI Cardiovascular: reports: as stated in HPI Respiratory: reports: as stated in HPI Gastrointestinal: reports: as stated in HPI Genitourinary - Female: reports: as stated in HPI Musculoskeletal: reports: as stated in HPI Integumentary: reports: as stated in HPI Neurologic: reports: as stated in HPI Psychiatric: reports: as stated in HPI Endocrine: as stated in HPI Hematologic / Lymphatic: as stated in HPI Allergic / Immunologic: as stated in HPI All Other Symptoms All Other Systems: Reviewed and Negative Past Medical History Past Medical History: Atrial fibrillation s/p PPM for tachybrady syndrome Lower back pain Past Surgical History: PPM Right knee arthroscopy x2 Hysterectomy Family History COPD (chronic obstructive pulmonary disease) MOTHER Colon cancer BROTHER Congestive heart failure MOTHER Coronary artery disease MOTHER DVT BROTHER SISTER Lung cancer SISTER As above. Social History She denies any tobacco use, alcohol or illicit drug use. Hx Tobacco Use In Past Year?: No Smoking Status: Never Smoker Occupational Status: retired Allergies Coded Allergies: Levofloxacin (Verified Adverse Reaction, Mild, NAUSEA, 08/20/17) Propofol (Verified Adverse Reaction, Mild, NAUSEA, 08/20/17) Current Medications Reported Home Medications Medications Dose Route/Sig Max Daily Dose Days Date Category Dose Instructions Inderal (Propranolol HCl) 20 Mg Tab 20 Mg PO BID 08/19/17 Reported Novolog (Insulin Aspart) 100 Units/Ml Inj 10 Units SQ BIDM 08/19/17 Reported PLUS SLIDING SCALE Lantus (Insulin Glargine) 100 Unit/Ml Inj 40 SC QAM 08/19/17 Reported Diltiazem HCl ER (Diltiazem HCl) 360 Mg Tabcr 360 Mg PO DAILY 08/19/17 Reported Orange-3 (Fish Oil) 1 Ea Cap 1 Cap PO BID 08/19/17 Reported Zestril (Lisinopril) 40 Mg Tab 40 Mg PO BID 08/19/17 Reported Lasix (Furosemide) 40 Mg Tab 40 Mg PO DAILY PRN 08/21/15 Reported Lipitor (Atorvastatin Calcium) 40 Mg Tab 20 Mg PO QPM 08/21/15 Reported Xanax (Alprazolam) 0.25 Mg Tab 0.25 Mg PO DAILY PRN 12/15/13 Reported Sotalol Hcl 120 Mg Tab 120 Mg PO BID 12/15/13 Reported Jantoven (Warfarin Sodium) 5 Mg Tab 5 Mg PO DAILY 12/15/13 Reported Physical Physical Exam Vital Signs: Date Time Temp Pulse Resp B/P (MAP) Pulse Ox O2 Delivery O2 Flow Rate FiO2 08/20/17 08:01 96 Room Air 08/20/17 07:45 36.8 60 20 116/69 (85) 97 Room Air 08/20/17 04:00 96 Room Air 08/20/17 03:11 36.7 65 16 111/62 (78) 96 Room Air 08/20/17 00:30 36.8 83 16 163/81 96 Room Air 08/20/17 00:16 86 18 159/79 96 08/19/17 22:43 88 20 154/95 93 Room Air 08/19/17 21:35 60 22 141/63 96 Room Air 08/19/17 21:31 96 Room Air 08/19/17 21:31 96 Room Air 08/19/17 21:17 63 08/19/17 21:00 37.0 83 20 129/63 96 Room Air General Appearance: WD/WN, NO APPARENT DISTRESS Head: NORMOCEPHALIC Eyes: PERRLA, NO DISCHARGE, EOMI, CONJUNCTIVAE NORMAL ENT: NORMAL MOUTH EXAM, NORMAL THROAT EXAM Respiratory: CLEAR TO AUSCULTATION, CLEAR TO PERCUSSION, NO TENDERNESS, accessory muscle use Cardiovasular: NORMAL PERIPHERAL PULSES, irregular rate, abnormal rhythm Abdomen: NON TENDER, NORMAL BOWEL SOUNDS Back: NO MIDLINE TENDERNESS, NO CVA TENDERNESS Upper Extremities: NO EDEMA, NO DEFORMITY, NORMAL ROM, other (no cyanosis) Edema: RLE (1+), LLE (3+) Neuro: ALERT, ORIENTED x 3, NORMAL MOTOR EXAM, NORMAL SENSATION, NORMAL SPEECH , NORMAL MEMORY Psychiatric: NORMAL AFFECT, NO SUICIDAL IDEATION, CONTRACTS FOR SAFETY Diagnostics Labs Results Past 24 Hours Test 08/19/17 21:30 08/20/17 06:18 08/20/17 07:30 Range/Units White Blood Count 9.35 6.34 4.8-10.8 K/uL Red Blood Count 4.16 3.66 4.2-5.4 M/uL Hemoglobin 12.7 10.9 12.0-16.0 g/dL Hematocrit 37.0 32.6 37-47 % Mean Corpuscular Volume 88.9 89.1 80-100 fL Mean Corpuscular Hemoglobin 30.5 29.8 25-34 pg Mean Corpuscular Hemoglobin Concent 34.3 33.4 32-36 g/dl Platelet Count 140 109 130-400 K/uL Mean Platelet Volume 9.3 9.2 7.4-10.4 fL Neutrophils (%) (Auto) 73.1 % Lymphocytes (%) (Auto) 14.8 % Monocytes (%) (Auto) 10.1 % Eosinophils (%) (Auto) 0.6 % Basophils (%) (Auto) 0.1 % Neutrophils # (Auto) 6.84 1.4-6.5 K/uL Lymphocytes # (Auto) 1.38 1.2-3.4 K/uL Monocytes # (Auto) 0.94 0.11-0.59 K/uL Eosinophils # (Auto) 0.06 0-0.5 K/uL Basophils # (Auto) 0.01 0-0.2 K/uL RDW Standard Deviation 45.7 46.0 36.4-46.3 fL RDW Coefficient of Variation 14.1 14.3 11.5-14.5 % Immature Granulocyte % (Auto) 1.3 % Immature Granulocyte # (Auto) 0.12 0.00-0.02 K/uL Prothrombin Time 27.8 9.0-12.0 SECONDS Prothromb Time International Ratio 2.7 0.9-1.1 Activated Partial Thromboplast Time 26.4 89.5 21.0-31.0 SECONDS Partial Thromboplastin Ratio 1.0 3.4 Sodium Level 139 139 136-145 mmol/L Potassium Level 5.1 4.4 3.5-5.1 mmol/L Chloride Level 104 108 98-107 mmol/L Carbon Dioxide Level 26 27 21-32 mmol/L Anion Gap 9.0 4.0 3-11 mmol/L Blood Urea Nitrogen 56 47 7-18 mg/dl Creatinine 1.48 0.99 0.60-1.20 mg/dl Est Creatinine Clear Calc Drug Dose 28.4 42.4 ml/min Estimated GFR () 38.4 62.4 Estimated GFR (Non- 33.1 53.8 BUN/Creatinine Ratio 37.9 47.4 10-20 Random Glucose 266 170 70-99 mg/dl Calcium Level 8.8 8.4 8.5-10.1 mg/dl Total Bilirubin 0.4 0.2-1 mg/dl Direct Bilirubin 0.1 0-0.2 mg/dl Aspartate Amino Transf (AST/SGOT) 13 15-37 U/L Alanine Aminotransferase (ALT/SGPT) 39 12-78 U/L Alkaline Phosphatase 110 45-117 U/L Total Creatine Kinase 56 26-192 U/L Creatine Kinase MB 2.2 0.5-3.6 ng/ml Creatine Kinase MB Ratio 3.9 0-3.0 Troponin I < 0.015 0-0.045 ng/ml Pro-B-Type Natriuretic Peptide 613 0-1800 pg/ml Total Protein 6.4 6.4-8.2 gm/dl Albumin 2.9 3.4-5.0 gm/dl Lipase 223 73-393 U/L Bedside Glucose 166 70-90 mg/dl Microbiology Results 08/20/17 Blood Culture, Received Pending 08/20/17 Blood Culture, Received Pending Diagnostic Radiology Review CHEST ONE VIEW PORTABLE FINDINGS: Left-sided dual-chamber pacemaker. The heart is normal in size. The left lung is clear. 13 mm nodular density within the right midlung zone. No focal lung consolidations. No evidence for pulmonary edema. No pleural effusions. No pneumothorax. IMPRESSION: 1. No acute process within the chest. A 1.3 cm nodular density within the right midlung zone. Follow-up chest CT is recommended to exclude a pulmonary lesion. LEFT LOWER EXTREMITY VENOUS DOPPLER FINDINGS: Extensive DVT seen throughout the left lower extremity deep venous systems including the visualized left iliac vein. The thrombus within the left superficial femoral vein and distal veins is occlusive. IMPRESSION: Extensive DVT throughout the left lower extremity deep venous system including the left iliac veins. CHEST CTA for PULMONARY ARTERIES FINDINGS: Normal caliber thoracic aorta with no evidence for dissection. No pleural or pericardial effusions. Left-sided pacemaker. The heart is normal in size. The left pulmonary arteries are patent. Multiple filling defects seen within the segmental and subsegmental branches within the right lung consistent with pulmonary emboli. No evidence for right-sided heart strain this time. Mildly enlarged thyroid gland. No mediastinal or hilar lymphadenopathy. The visualized liver, spleen, and adrenal glands are unremarkable. A a few hypodense lesions within the kidneys with the largest in the left kidney measuring 2.5 cm. These likely represent cysts. The central airways are patent. No pneumothorax. Calcified granuloma seen within the left lower lobe. Multiple scattered cavitary nodules seen within the right lung. Dominant nodule within the right upper lobe anteriorly measures 1.3 cm. There are few scattered tree-in-bud nodular densities seen within the right middle lobe and lingula. There is also an 11 mm nodular density within the base of the lingula. IMPRESSION: 1. Right-sided pulmonary emboli. 2. Multiple scattered cavitary nodules seen predominantly within the right lung. Therefore, these favor septic pulmonary emboli. An infectious, inflammatory, or less likely neoplastic process could also have a similar appearance. Follow-up is recommended to ensure resolution. 3. There are also a few scattered tree-in-bud nodular opacities seen within the right middle lobe and lingula which favor a superimposed infectious bronchiolitis. EKG EKG Atrial-paced rhythm, Vent rate 62 bpm. Impression Assessment and Plan Pulmonary emboli DVT Atrial fibrillation Cavitary pulmonary nodules Hypertension Patient presents with left lower extremity edema and shortness of breath. She was found to have extensive LE DVT and pulmonary embolism. Notably she, also found to have multiple pulmonary nodules in the right upper lobe, largest about 1.3 cm and cavitating and smaller nodule 1.1 cm in lingula. Also there some tree-in-bud opacities seen bilaterally as well. Recommendations: DVT/PE Patient currently not requiring supplemental oxygen and hemodynamically stable. Recommend prn use to maintain SaO2, > 92%. Continue to treat DVT/PE with full dose anticoagulation. I would treat this a provoked PE as she was previously on Coumadin which was held prior to schedule procedure and she underwent recent travel. ? Coumadin failure. Discussed switch over to NOAC. The risk and benefits discussed. Continue DVT/PE for a minimum of three months in duration. Multiple pulmonary nodules, etiology unknown at this time. Differential includes infectious, like cavitating pneumonia, fungal or mycobacterial infections. Less likely, as she does not show any signs of infection. Possible malignancy, in the setting of new DVT/PE. I do agree with treating her empirically at this time for pneumonia to cover for MRSA and anaerobes. Send blood,sputum culture as well as culture for AFB, less likely . Recommend TTE to assess for endocarditis. I would not recommend bronchoscopy at this time, however she should have repeat CT chest in 6 weeks to assess for interval resolution. Try to obtain previous imaging from [place] and [place]. Further work up can done when PE/DVT has been adequately treated. Discussed plan with Dr. Cervantes, patient and her family who are at bedside. All questions addressed. She should follow up with pulmonary in 2-3 post hospital discharge. I appreciate the consult.
[2017-08-20 14:13] LABS: PARTIAL THROMBOPLASTIN RATIO 1.6
[2017-08-20] MEDS ORDERED: HEPARIN IV BOLUS 3,000 UNIT in SYRINGE 0 ML IV ONE (14:30)
[2017-08-20 15:28] LABS: INR 2.4 (0.9-1.1); PROTHROMBIN TIME (PATIENT) 25.2 SECONDS (9.0-12.0)
[2017-08-20] MEDS ORDERED: WARFARIN SOD 5 MG TAB PO SCH (16:00)
[2017-08-20] MEDS ORDERED: OPTIRAY 320 IV PRN (16:15)
--- NOTE | 2017-08-20 16:24 | DIAGNOSTIC IMAGING REPORT ---
CT ABD/PELVIS IV CONTRAST ONLY CLINICAL HISTORY: Pulmonary embolism. DVT. Cavitary pulmonary nodules. COMPARISON STUDY: None. TECHNIQUE: Following the IV administration of 115 mL of Optiray-320, CT scan of the abdomen and pelvis was performed from the lung bases to the proximal femurs. Images are reviewed in the axial, sagittal, and coronal planes. IV contrast was administered without complication. A dose lowering technique was utilized adhering to the principles of ALARA. CT DOSE: 312.32 mGy.cm FINDINGS: Lower chest: There are bilateral pulmonary nodules, including a cavitary right middle lobe pulmonary nodule. Liver: The contrast-enhanced liver is normal in size, contour, and attenuation. There is no intrahepatic biliary ductal dilatation. The hepatic veins and portal veins are patent. Gallbladder: There is mild nodularity of the gallbladder fundus, likely secondary to adenomyomatosis. Spleen: Normal in size and attenuation. Pancreas: Unremarkable. Adrenal glands: Unremarkable. Kidneys: There are multiple bilateral renal cysts ranging in size from 2 mm to 25 mm. There is no evidence of hydronephrosis. There is a nonobstructing 8mm lower pole right renal calculus. Bowel: There are no transition zones to indicate bowel obstruction. There is no evidence of acute diverticulitis. There are scattered colonic diverticula present. There is no evidence of acute appendicitis. Peritoneum: There is no intraperitoneal free air or abdominal ascites. Vasculature: The abdominal aorta is normal in course and caliber. There is IVC thrombus. There is left common femoral vein thrombus. Adenopathy: None. Pelvic viscera: The uterus appears surgically absent. There is minor bladder wall thickening. Skeletal structures: No destructive osseous lesions are seen. IMPRESSION: 1. Nodularity of the gallbladder fundus likely secondary to adenomyomatosis 2. Nonobstructing 8 mm lower pole right renal calculus 3. No evidence of hepatic or adrenal metastasis. No evidence of pathologic adenopathy. 4. Left femoral vein and IVC thrombus. 5. Bilateral pulmonary nodules with a cavitary right middle lobe pulmonary nodule Electronically signed by: Addison Briggs M.D. 08/20/2017 4:23 PM Dictated Date/Time: 08/20/2017 4:16 PM
--- NOTE | 2017-08-20 17:32 | Medical Consult ---
Consultation Date of Consultation: Aug 20, 2017. Attending Physician: Sherlyn Cervantes M.D. History of Present Illness Hematology/Oncology consult: Evaluation management of left lower extremity DVT and pulmonary embolism. Date of consultation: 08/20/[address] Pena. HPI: 82-year-old female, who is admitted at [facility] on for increasing left lower extremity painful swelling of about 1 month duration and now diagnosed with left lower extremity DVT and pulmonary embolism. Already on oral Coumadin for the last several years for underlying atrial fibrillation, she had spine injection x3 recently in the last 6 weeks and so she was off the Coumadin treatment for about 5 days before the procedure each time. I saw her weight side, several family members were also at bedside, reviewed her medical records. She is otherwise quite active, she lives in [place] during the winter months and [place] in the summer months. She is eating her family member in [place] over this holidays. She is on oral Coumadin for underlying cardiac arrhythmia (atrial fibrillation, ) she also had a permanent pacemaker placement earlier, she did not have any major bleeding complications, no blood clot problem in the past. Since early June she had received spinal injection x3 (every other week), she was off the Coumadin treatment for about 5 to 6 days before each injection and then Coumadin therapy was restarted. She says that she noticed to have some ankle swelling about 1 month or so, had some local injury to the left ankle about 2 weeks back but she had swelling even before that, swelling progressively got worse, About 1 week back she traveled from [place] to [place] (air travel), she says that she already had a swelling in the left lower extremity before the travel but it got quite worse in the last few days, had also trouble in the ambulation because of increasing painful swelling of the left lower extremity, had some mild shortness of breath but otherwise no chest pain, no hemoptysis, no increasing coughing. Nonsmoker. She denies any bleeding from any sites, denies any abdominal pain, no nausea, no vomiting, no diarrhea, no constipation. She had hysterectomy and oophorectomy earlier in the past, as per the patient it showed benign findings. She says that she had at least the 3 CT scan of the chest earlier in [place], as per the patient last scan was done about 3 years back, it showed some lung nodules but she was advised she does not need any follow-up imaging study at that time. REVIEW OF SYSTEMS: GENERAL: No recent change in weight, small generalized weakness and fatigue present, no fever, sweats or chills. SKIN: No skin rash, no bruising. HEAD: No new headache, no dizziness. EARS: No earache no tinnitus, NOSE: No epistaxis, No nasal discharge or stuffiness, MOUTH: No sores, no dysphagia, no hoarseness of voice, NECK: No lumps, No swelling in thyroid area. No stiffness. PULMONARY: No cough, mild shortness of breath present, she is not on oxygen therapy, no hemoptysis, no chest pain, No wheezing. CARDIOVASCULAR: No anginal chest pain, no PND, no orthopnea. No palpitation, left leg edema present. No syncope. GASTROINTESTINAL: No abdominal pain, no nausea or vomiting. No diarrhea, No constipation. No blood in stool or black tarry stools. No abdominal distention. UROLOGIC: No burning urination. No hematuria. MUSCULOSKELETAL: Chronic back pain related underlying DJD in present, had received local injection therapy, the last was done in early July,. HEMATOLOGIC: No anemia, no bleeding disorder, No bruising. NEUROLOGIC: No seizures, no focal weakness, no speech difficulty, No memory disturbances. Some mild tingling and numbness of extremities. PSYCHIATRIC: No depression. No anxiety. No psychosis. SLEEP: No sleep disorder. Past medical and surgical history: -diabetes mellitus, -atrial fibrillation, S/P permanent pacemaker, on anticoagulant treatment -essential tremor -hypertension -osteoporosis. -right knee joint replacement surgery. -hyperlipidemia Social history: Nonsmoker, denies any ETOH abuse Family history:\par -brother diagnosed with colon cancer, had a DVT, sister had lung cancer and had also DVT. - no other significant family history. Medications: She was on Lipitor, Cardizem, insulin, lisinopril, propranolol, sotalol, Coumadin at home. She takes Xanax and Lasix on p.r.n. basis. Please review her chart for detailed list of medications. -she is on doxycycline and ceftriaxone On exam: - Alert and oriented x3, well built woman, not in any distress. - HEENT: no icterus, no pallor, Throat: Normal. - Neck: No palpable cervical lymphadenopathy. - Chest: clear to auscultation. - Abdomen: soft, nontender, no hepatomegaly, no splenomegaly. - No focal neuro deficit. - Extremities: no finger clubbing, left leg edema present. Lab: - PT 27.8, INR 2.7, PTT 26.4 (08/19/2017) -PT--> 25, INR 2.4 (08/20/2017) -PTT--> 89.5 (08/20/2017 at 6:18 a.m.),--> 42 seconds (1:56 p.m.) -influenza a and B antigen--> negative. Blood workup done on 08/19/2017: -BUN/Creat: 56/1.4, calcium 8.8, normal liver function tests other than albumin level of 2.9. -WBC 9500, H&H of 12.7/37, Platelet count of 140,000 Blood workup done on 08/20/2017: -BUN/Creat: 47/0.9 -WBC 6300, H&H of 10.9/32.6, Platelet count of 109,000. Imaging: -Chest x-ray done in July, showed some few nodular densities within the right lung, thought to be the blood vessels, -Chest x-ray done on 08/19/2017, it showed 1.3 cm nodular density in the right mid-lung field, no pulmonary edema. Dual-chamber pacemaker noted. -CT scan of the chest done on 08/19/2017 showed filling defects noted in the segmental and subsegmental branches within the right lung consistent with pulmonary emboli. No right heart strain note no mediastinal hilar lymphadenopathy noted. Multiple scattered cavitary nodules noted in the right lung, dominant the nodule in the right upper lobe measuring 1.3 cm. Few scattered tree-in-bud nodular densities noted in the right middle lobe and lingula. - Echocardiogram done on 07/21/2017 showed no evidence of pulmonary hypertension , ejection fraction is 60-65%. -CT scan of the abdomen pelvis done with intravenous contrast on 08/20/2017 showed no intra-abdominal mass lesions, nodularity of the gallbladder fundus likely secondary to adenomyomatosis, 8 mm right kidney calculus in the lower pole, no liver or adrenal mass, no pathologically enlarged lymph nodes. Left femoral vein and IVC thrombus noted. Bilateral lung nodules which were noted in the recent CT scan of the chest are seen. -She had a colonoscopy about 4 years back, as per the patient it showed no new suspicious findings. ASSESSMENT AND PLAN: 82-year-old female, who has atrial fibrillation, on oral anticoagulant in the form of Coumadin for the last several years, she did not have any thrombotic complications the past, recently about over 1 month back she noticed to have some swelling in the left ankle, since early June she had received 3 spine injection for the symptoms of DJD with left sciatica she was advised to hold Coumadin treatment for about 5 days before the each procedure so she was not on any anticoagulant treatment during that time. Now she has progressively increasing left leg painful edema and some increasing shortness of breath, recent imaging study showed extensive DVT involving the left leg extending up to the IVC, no any suspicious intra-abdominal findings noted but CT scan of the chest showed evidence of right sided pulmonary emboli and also multiple lung nodules in the right lung, there also cavitary. She does not have any other increasing pulmonary symptoms, O2 saturation is quite good on the room air, hemodynamically she is stable. Presently she is receiving IV heparin, when she came in her INR was in the therapeutic range. It is possible that she may have develop left lower extremity DVT while she was off the anticoagulant treatment and it may have further progressed in the last month or so in that case I would not consider that as a Coumadin failure but the same time she had developed extensive DVT in the left lower extremity, extending up to the IVC. We could consider for switching to newer oral anticoagulant in the form of Eliquis upon discharge. Regarding lung nodules, she had a chest x-ray earlier in 2014, reported to some noted densities in the right lung at that time, she says that she had CT scan of the chest done few times in [place], the last was about 3 years back, as per the patient she had some changes in the lung but she was advised that there is no need for follow-up imaging study at that time. Will review CT scan result done earlier in [place]. Meanwhile will continue with IV heparin and Coumadin treatment for today, it is possible that she may be over anticoagulated at this time, will see how she does overnight. We have to watch for the progression of the clot at this time. As she did not have any blood clot problem earlier in the life, I am not planning for investigating inherited cause of thrombophilia in her case. Thanks for the consultation. Dr. Marko Calloway Hem/Onc (This note was completed using the dictation program Fluency Direct. As such, there may be misspellings, word substitutions, or other variations that should not change the essence of the clinical content of this encounter note. If there is need for further clarification, please direct questions to the provider listed above.) Past Medical/Surgical History Medical Problems: (1) Acute bronchitis with bronchospasm Status: Acute (2) Hypoxemia Status: Acute Family History COPD (chronic obstructive pulmonary disease) MOTHER Colon cancer BROTHER Congestive heart failure MOTHER Coronary artery disease MOTHER DVT BROTHER SISTER Lung cancer SISTER Social History Smoking Status: Never Smoker Alcohol Use: occasionally Drug Use: none Housing Status: lives alone Occupation Status: retired Allergies Coded Allergies: Levofloxacin (Verified Adverse Reaction, Mild, NAUSEA, 08/20/17) Propofol (Verified Adverse Reaction, Mild, NAUSEA, 08/20/17) Current Inpatient Medications Current Inpatient Medications Medications (Trade) Dose Ordered Sig/Herbert Route Start Time Stop Time Status Last Admin Dose Admin Ioversol (Optiray 320) 100 ml UD PRN IV 08/19/17 22:45 08/23/17 22:44 Acetaminophen (Tylenol Tab) 650 mg Q4H PRN PO 08/19/17 23:15 09/18/17 23:14 Alprazolam (Xanax Tab) 0.25 mg DAILY PRN PO 08/19/17 23:30 09/18/17 23:29 Atorvastatin Calcium (Lipitor Tab) 20 mg QPM PO 08/20/17 21:00 09/19/17 20:59 Insulin Aspart (novoLOG ASPART) 10 units BIDM SQ 08/20/17 07:30 09/19/17 07:59 08/20/17 17:14 10 UNITS Insulin Glargine (Lantus Solostar Pen) 40 units QAM SC 08/20/17 09:00 09/19/17 08:59 08/20/17 07:42 40 UNITS Lisinopril (Zestril Tab) 40 mg BID PO 08/20/17 09:00 09/19/17 08:59 Future Hold 08/20/17 07:37 40 MG Propranolol HCl (Inderal Tab) 20 mg BID PO 08/20/17 09:00 09/19/17 08:59 08/20/17 07:36 20 MG Diltiazem HCl (Cardizem Cd Cap) 360 mg QAM PO 08/20/17 09:00 09/19/17 08:59 08/20/17 07:36 360 MG Sotalol HCl (Betapace Tab) 120 mg BID PO 08/20/17 09:00 09/19/17 08:59 08/20/17 07:36 120 MG Heparin Sodium/ Dextrose 500 ml @ 13 mls/hr Q24H PRN IV 08/19/17 23:45 09/18/17 23:44 08/20/17 00:18 15 MLS/HR Glucose (Glucose 40% Gel) 15-30 GRAMS 15 GRAMS... UD PRN PO 08/20/17 01:15 09/19/17 01:14 Glucose (Glucose Chew Tab) 4-8 Tablets 4 Tabl... UD PRN PO 08/20/17 01:15 09/19/17 01:14 Dextrose (Dextrose 50% 50ML Syringe) 25-50ML OF 50% DW IV FOR... UD PRN IV 08/20/17 01:15 09/19/17 01:14 Glucagon (Glucagon Inj) 1 mg UD PRN SQ 08/20/17 01:15 09/19/17 01:14 Ceftriaxone Sodium 1 gm/ Dextrose 50 ml @ 100 mls/hr Q24H IV 08/20/17 12:30 08/27/17 12:29 08/20/17 12:30 100 MLS/HR Doxycycline Hyclate (Vibramycin Cap) 100 mg BID PO 08/20/17 21:00 08/27/17 08:59 Ioversol (Optiray 320) 115 ml UD PRN IV 08/20/17 16:15 08/24/17 16:14 Physical Exam Date Time Temp Pulse Resp B/P (MAP) Pulse Ox O2 Delivery O2 Flow Rate FiO2 08/20/17 16:14 96 Room Air 08/20/17 12:31 96 Room Air 08/20/17 11:54 36.7 60 20 127/80 (96) 97 Room Air 08/20/17 08:01 96 Room Air 08/20/17 07:45 36.8 60 20 116/69 (85) 97 Room Air 08/20/17 04:00 96 Room Air 08/20/17 03:11 36.7 65 16 111/62 (78) 96 Room Air 08/20/17 00:30 36.8 83 16 163/81 96 Room Air 08/20/17 00:16 86 18 159/79 96 08/19/17 22:43 88 20 154/95 93 Room Air 08/19/17 21:35 60 22 141/63 96 Room Air 08/19/17 21:31 96 Room Air 08/19/17 21:31 96 Room Air 08/19/17 21:17 63 08/19/17 21:00 37.0 83 20 129/63 96 Room Air Laboratory Results Last 24 Hours Test 08/19/17 21:30 08/20/17 06:18 08/20/17 07:30 08/20/17 11:30 White Blood Count 9.35 K/uL 6.34 K/uL Red Blood Count 4.16 M/uL 3.66 M/uL Hemoglobin 12.7 g/dL 10.9 g/dL Hematocrit 37.0 % 32.6 % Mean Corpuscular Volume 88.9 fL 89.1 fL Mean Corpuscular Hemoglobin 30.5 pg 29.8 pg Mean Corpuscular Hemoglobin Concent 34.3 g/dl 33.4 g/dl Platelet Count 140 K/uL 109 K/uL Mean Platelet Volume 9.3 fL 9.2 fL Neutrophils (%) (Auto) 73.1 % Lymphocytes (%) (Auto) 14.8 % Monocytes (%) (Auto) 10.1 % Eosinophils (%) (Auto) 0.6 % Basophils (%) (Auto) 0.1 % Neutrophils # (Auto) 6.84 K/uL Lymphocytes # (Auto) 1.38 K/uL Monocytes # (Auto) 0.94 K/uL Eosinophils # (Auto) 0.06 K/uL Basophils # (Auto) 0.01 K/uL RDW Standard Deviation 45.7 fL 46.0 fL RDW Coefficient of Variation 14.1 % 14.3 % Immature Granulocyte % (Auto) 1.3 % Immature Granulocyte # (Auto) 0.12 K/uL Prothrombin Time 27.8 SECONDS Prothromb Time International Ratio 2.7 Activated Partial Thromboplast Time 26.4 SECONDS 89.5 SECONDS Partial Thromboplastin Ratio 1.0 3.4 Sodium Level 139 mmol/L 139 mmol/L Potassium Level 5.1 mmol/L 4.4 mmol/L Chloride Level 104 mmol/L 108 mmol/L Carbon Dioxide Level 26 mmol/L 27 mmol/L Anion Gap 9.0 mmol/L 4.0 mmol/L Blood Urea Nitrogen 56 mg/dl 47 mg/dl Creatinine 1.48 mg/dl 0.99 mg/dl Est Creatinine Clear Calc Drug Dose 28.4 ml/min 42.4 ml/min Estimated GFR () 38.4 62.4 Estimated GFR (Non- 33.1 53.8 BUN/Creatinine Ratio 37.9 47.4 Random Glucose 266 mg/dl 170 mg/dl Calcium Level 8.8 mg/dl 8.4 mg/dl Total Bilirubin 0.4 mg/dl Direct Bilirubin 0.1 mg/dl Aspartate Amino Transf (AST/SGOT) 13 U/L Alanine Aminotransferase (ALT/SGPT) 39 U/L Alkaline Phosphatase 110 U/L Total Creatine Kinase 56 U/L Creatine Kinase MB 2.2 ng/ml Creatine Kinase MB Ratio 3.9 Troponin I < 0.015 ng/ml Pro-B-Type Natriuretic Peptide 613 pg/ml Total Protein 6.4 gm/dl Albumin 2.9 gm/dl Lipase 223 U/L Bedside Glucose 166 mg/dl 60 mg/dl Test 08/20/17 13:56 08/20/17 16:31 Prothrombin Time 25.2 SECONDS Prothromb Time International Ratio 2.4 Activated Partial Thromboplast Time 42.0 SECONDS Partial Thromboplastin Ratio 1.6 Bedside Glucose 171 mg/dl
[2017-08-20] MEDS: ATORVASTATIN 20 MG TAB PO SCH (20:45)
[2017-08-20] MEDS: DOXYCYCLINE HYCLATE 100 MG CAP PO SCH (20:46)
[2017-08-20 21:38] LABS: PARTIAL THROMBOPLASTIN RATIO 2.7
[2017-08-21] VITALS (9 sets, daily range): BP systolic 103–130; BP diastolic 65–80; PULSE 60–80; TEMP 36.5–37.1; O2SAT 94–98
[2017-08-21 04:34] LABS: HEMATOCRIT 30.2 % (37-47); MEAN CELL VOLUME 89.6 fL (80-100); MEAN CORPUSCULAR HEMOGLOBIN 30.3 pg (25-34); MEAN CORPUSCULAR HGB CONC 33.8 g/dl (32-36); MEAN PLATELET VOLUME 8.6 fL (7.4-10.4); PLATELET COUNT 114 K/uL (130-400); RED BLOOD COUNT 3.37 M/uL (4.2-5.4); WHITE BLOOD COUNT 6.83 K/uL (4.8-10.8)
[2017-08-21 04:51] LABS: BUN/CREATININE RATIO 37.3 (10-20); CALCIUM 8.2 mg/dl (8.5-10.1); CREATININE 1.08 mg/dl (0.60-1.20)
[2017-08-21 04:52] LABS: INR 2.4 (0.9-1.1); PARTIAL THROMBOPLASTIN RATIO 2.1; PROTHROMBIN TIME (PATIENT) 24.3 SECONDS (9.0-12.0)
[2017-08-21] MEDS: PROPRANOLOL HCL 20 MG TAB PO SCH ×2 (08:48→20:47)
[2017-08-21] MEDS: DILTIAZEM HCL 180 MG CAPCR PO SCH (08:48)
[2017-08-21] MEDS: DOXYCYCLINE HYCLATE 100 MG CAP PO SCH ×2 (08:48→20:47)
[2017-08-21] MEDS: SOTALOL HCL 80 MG TAB PO SCH ×2 (08:49→20:48)
[2017-08-21] MEDS: INSULIN ASPART 100 UNITS/ML 3 ML PEN SQ SCH ×2 (08:53→17:33)
[2017-08-21] MEDS: INSULIN GLARGINE SOLOSTAR 100 UNITS/ML 3 ML PEN SC SCH (08:54)
[2017-08-21] MEDS ORDERED: APIXABAN 2.5 MG TAB PO ONE (09:09)
[2017-08-21] MEDS: OXYCODONE/ACETAMINOPHEN 5-325 TAB PO PRN ×2 (10:07→20:08)
--- NOTE | 2017-08-21 10:30 | Progress Note ---
Medicine Progress Note Date & Time of Visit: Aug 21, 2017 at 10:03. Subjective Pt was seen and examined Lying in bed with no distress Pt said that she is having tenderness in her right groin area She thinks that she pulls a muscle Denies any chest pain, palpitation, dizziness and SOB Objective Last 8 Hrs Date Time Temp Pulse Resp B/P (MAP) Pulse Ox O2 Delivery O2 Flow Rate FiO2 08/21/17 07:25 36.8 60 18 103/65 (78) 97 Room Air 08/21/17 04:00 94 Room Air 08/21/17 04:00 36.7 62 22 123/77 (92) 95 Room Air Physical Exam: General- No acute distress Head- atraumatic Eyes- PERRL, EOMI ENT- oropharynx clear Neck- supple, no JVD Lungs- No wheezing Heart- regular rhythm Abdomen- normal bowel sounds, soft Extremities- +edema LLE, +LLE tenderness, Right groin tenderness Neuro- alert, oriented x 3; PERRL, EOMI Skin- warm & dry Laboratory Results: Last 24 Hours Test 08/20/17 11:30 08/20/17 13:56 08/20/17 16:31 08/20/17 20:29 Bedside Glucose 60 mg/dl 171 mg/dl 89 mg/dl Prothrombin Time 25.2 SECONDS Prothromb Time International Ratio 2.4 Activated Partial Thromboplast Time 42.0 SECONDS Partial Thromboplastin Ratio 1.6 Test 08/20/17 21:06 08/21/17 04:24 08/21/17 07:02 Activated Partial Thromboplast Time 71.4 SECONDS 55.0 SECONDS Partial Thromboplastin Ratio 2.7 2.1 White Blood Count 6.83 K/uL Red Blood Count 3.37 M/uL Hemoglobin 10.2 g/dL Hematocrit 30.2 % Mean Corpuscular Volume 89.6 fL Mean Corpuscular Hemoglobin 30.3 pg Mean Corpuscular Hemoglobin Concent 33.8 g/dl RDW Standard Deviation 46.8 fL RDW Coefficient of Variation 14.3 % Platelet Count 114 K/uL Mean Platelet Volume 8.6 fL Prothrombin Time 24.3 SECONDS Prothromb Time International Ratio 2.4 Sodium Level 140 mmol/L Potassium Level 5.0 mmol/L Chloride Level 109 mmol/L Carbon Dioxide Level 26 mmol/L Anion Gap 5.0 mmol/L Blood Urea Nitrogen 40 mg/dl Creatinine 1.08 mg/dl Est Creatinine Clear Calc Drug Dose 38.9 ml/min Estimated GFR () 56.1 Estimated GFR (Non- 48.4 BUN/Creatinine Ratio 37.3 Random Glucose 122 mg/dl Calcium Level 8.2 mg/dl Bedside Glucose 133 mg/dl Assessment & Plan DVT LEFT LOWER EXTREMITY / PULMONARY EMBOLISM Doppler U/S showed extensive DVT throughout the left lower extremity deep venous system including the left iliac veins. CTA chest showed right-sided pulmonary emboli. On coumadin and INR 2.7 on admission Provoked DVT/PE due recent hold on Coumadin for epidural injection and multiple travel trip No history malignancy No prior history of thromboembolic disease. On heparin drip Hematology and pulmonology on board Case discussed with hematology recommend to get a CT scan abdomen Family wants to switch to eliquis Discussed with pharmacy, will start eliquis once INR below 2 Echo pending 08/21 Will continue on heparin drip Cannot verify with her pharmacy to check if Eliquis will be covered by insurance Will get a Doppler of RLE Pain control Talked to Dr. Wagner for possible IVC filter, he is out of town until Aug 29. [address] dr[address] Calvo and he would see the patient tomorrow. case discussed with dr. Ignacio and Dr. Calloway Will consider Lovenox on discharge PULMONARY NODULES CTA chest showed multiple scattered cavitary nodules and few scattered tree-in- bud nodular opacities Possible due infectious etiology, septic emboli or malignancy Pulmonary on board recommended repeat CT chest in 6 weeks Will treat with empirical antibiotic rocephin/doxy Echo pending to r/o endocarditis No Bronchoscopy for now as per Pulm Blood cx pending Sputum cx did not collect since pt is not coughing CHF No signs of acute heart failure BNP wnl Previous hospitalization record showed hx CHF (Family and pt not aware as per admitting physician) Furosemide on hold Resume lisinopril Echo The left ventricle is normal in size. * There is borderline concentric left ventricular hypertrophy. * Ejection Fraction = 60-65%. * Grade I diastolic dysfunction, (abnormal relaxation pattern). * Aortic valve sclerosis mild, without significant aortic valvular stenosis. * Mild aortic regurgitation. * The right ventricular systolic function is normal. * The left atrial size is normal. * Right atrial size is normal. * There is no evidence of pulmonary hypertension. The PA systolic pressure is less than 36 mmHg. ATRIAL FIBRILLATION S/P catheter ablation. Rate control Continue sotalol and cardizem HYPERTENSION Resume lisinopril 40mg BID, Cardizem and sotalol. Continue monitor BP ACUTE KIDNEY INJURY Serum creatinine 1.48 compared to baseline of 1.1. Creatine 1.08 Hold furosemide. Received IVF Continue monitor BMP Resolved DM TYPE 2 Elevated BS Hgb A1C pending Lantus / NovoLog per protocol. Continue monitor BS DYSLIPIDEMIA On atorvastatin. HYPOTHYROIDISM Not on any medication Stable ESSENTIAL TREMOR Continue propranolol. VTE PROPHYLAXIS On IV heparin RESUSCITATION STATUS FULL CODE DISPOSITION Continue Telemetry Unit. Consultants: Oncology Pulmonary Current Inpatient Medications: Current Inpatient Medications Medications (Trade) Dose Ordered Sig/Herbert Route Start Time Stop Time Status Last Admin Dose Admin Ioversol (Optiray 320) 100 ml UD PRN IV 08/19/17 22:45 08/23/17 22:44 Acetaminophen (Tylenol Tab) 650 mg Q4H PRN PO 08/19/17 23:15 09/18/17 23:14 08/21/17 04:55 650 MG Alprazolam (Xanax Tab) 0.25 mg DAILY PRN PO 08/19/17 23:30 09/18/17 23:29 Atorvastatin Calcium (Lipitor Tab) 20 mg QPM PO 08/20/17 21:00 09/19/17 20:59 08/20/17 20:45 20 MG Insulin Aspart (novoLOG ASPART) 10 units BIDM SQ 08/20/17 07:30 09/19/17 07:59 08/21/17 08:53 10 UNITS Insulin Glargine (Lantus Solostar Pen) 40 units QAM SC 08/20/17 09:00 09/19/17 08:59 08/21/17 08:54 40 UNITS Lisinopril (Zestril Tab) 40 mg BID PO 08/20/17 09:00 09/19/17 08:59 Future Hold 08/20/17 07:37 40 MG Propranolol HCl (Inderal Tab) 20 mg BID PO 08/20/17 09:00 09/19/17 08:59 08/21/17 08:48 20 MG Diltiazem HCl (Cardizem Cd Cap) 360 mg QAM PO 08/20/17 09:00 1/23/18 08:59 08/21/17 08:48 360 MG Sotalol HCl (Betapace Tab) 120 mg BID PO 08/20/17 09:00 09/19/17 08:59 08/21/17 08:49 120 MG Glucose (Glucose 40% Gel) 15-30 GRAMS 15 GRAMS... UD PRN PO 08/20/17 01:15 09/19/17 01:14 Glucose (Glucose Chew Tab) 4-8 Tablets 4 Tabl... UD PRN PO 08/20/17 01:15 09/19/17 01:14 Dextrose (Dextrose 50% 50ML Syringe) 25-50ML OF 50% DW IV FOR... UD PRN IV 08/20/17 01:15 09/19/17 01:14 Glucagon (Glucagon Inj) 1 mg UD PRN SQ 08/20/17 01:15 09/19/17 01:14 Ceftriaxone Sodium 1 gm/ Dextrose 50 ml @ 100 mls/hr Q24H IV 08/20/17 12:30 08/27/17 12:29 08/20/17 12:30 100 MLS/HR Doxycycline Hyclate (Vibramycin Cap) 100 mg BID PO 08/20/17 21:00 08/27/17 08:59 08/21/17 08:48 100 MG Ioversol (Optiray 320) 115 ml UD PRN IV 08/20/17 16:15 08/24/17 16:14 Apixaban (Eliquis Tab) 10 mg BID PO 08/21/17 21:00 08/28/17 20:59 Oxycodone/ Acetaminophen (Percocet 5-325mg Tab) 0.5 tab Q8H PRN PO 08/21/17 10:00 09/04/17 09:59
--- NOTE | 2017-08-21 10:56 | DIAGNOSTIC IMAGING REPORT ---
R VENOUS DOPP LOWER EXT UNILAT CLINICAL HISTORY: 82 years-old Female presenting with R groin tenderness. TECHNIQUE: Real-time grayscale and color and spectral Doppler ultrasound imaging of the veins of the right lower extremity was performed. Compression and augmentation were also utilized. COMPARISON: CT from 08/20/2017. FINDINGS: Right: Common femoral vein: Patent. Greater saphenous vein: Patent. Deep femoral vein: Patent. Femoral vein: Patent. Popliteal vein: Patent. Calf veins: Noncompressibility and absence of color Doppler flow in the peroneal vein from the proximal to midportion consistent with thrombus. Other: None. IMPRESSION: Limited thrombus in the peroneal vein. Acuity is difficult to assess given the diminutive caliber of the vein. Otherwise patent veins. Electronically signed by: Darren Bond M.D. 08/21/2017 10:55 AM Dictated Date/Time: 08/21/2017 10:53 AM
[2017-08-21] MEDS: ALPRAZOLAM 0.25 MG TAB PO PRN (10:57)
[2017-08-21] MEDS: CEFTRIAXONE SOD INJ 1 GM in DEXTROSE 5% ADD-VANTAGE 50ML 50 ML IV SCH (11:58)
[2017-08-21] MEDS: HEPARIN 25,000 UNIT/500ML D5W 500 ML IV PRN (11:58)
--- NOTE | 2017-08-21 13:22 | HISTORY & PHYSICAL EXAMINATION ---
DATE OF ADMISSION: 08/21/2017 STATED COMPLAINT: Acute DVT/pulmonary emboli/cavitated pulmonary nodules. HISTORY OF PRESENT ILLNESS: An 82-year-old pleasant white female whose family live in the area and who flew up from [place] near [facility] to visit with the family, but then had to be admitted with almost a 4-week history of worsening left lower extremity pain and swelling. The patient has a history of chronic atrial fibrillation and pacemaker insertion and has been on Coumadin for several years. On several occasions within the past 4-6 weeks she had epidural spinal injections and the Coumadin was held for several days without bridging. She resides in [place] near [facility] in the summer and near [facility] in [place] in the winter. She is followed by a compressor battery pellets in [place] as well for which she says her chronic bronchitis and pulmonary nodules that have been stable. Those films have been sent for, but are not available to us. She has a negative smoking history but did have secondary exposure and her of complications from pulmonary fibrosis. This morning I went to see her after Dr. Ramesh did the initial consultation yesterday. She is now complaining of worsening right groin pain which is new in addition to the swelling involving the left lower extremity. I reviewed the films from the abdominal pelvic CT scan yesterday and this shows nodularity of the gallbladder fundus and a nonobstructing 8 mm lower pole right renal calculus. There is no obvious evidence for hepatic or adrenal metastasis or pathologic adenopathy, but the left femoral vein and IVC thrombosis are noted and are quite extensive. In addition, a CT scan of the chest done the day on 08/19/2017 showed multiple right-sided pulmonary emboli with multiple filling defects seen within the segmental and subsegmental branches within the right lung consistent with pulmonary emboli. There is no obvious evidence for right-sided heart strain with the flattening of the septum. No obvious mediastinal or hilar lymphadenopathy are seen. There are multiple scattered cavitary nodules within the right lung with the most pronounced appearing in the right upper lobe measuring 1.3 cm. There are few scattered tree-in-bud nodular densities within the right middle lobe and lingula as well as nodular density within the lingula. Lower extremity ultrasound performed on admission showed extensive DVT throughout the left lower extremity involving the left iliac vein, left superficial veins and distal veins are occlusive as well. The right side was not studied. The patient's INR on admission was 2.7. The patient has currently been dosed with Eliquis 10 mg p.o. b.i.d. and is on IV ceftriaxone. Dr. Ramesh, who saw patient yesterday noted that patient does have a family history of pulmonary emboli with both patient's brother and sister and both had cancer, one of the colon and one lung cancer. Dr. Marko Calloway also saw patient in consultation who agreed with the institution of Eliquis and no further thrombophilia workup at this point in time. The question was whether patient was a Coumadin failure. Dr. Cervantes is the hospitalist caring for this patient. Echocardiogram read by Dr. Su on admission showed normal LVEF with grade 1 diastolic dysfunction, no obvious vegetations were seen on the right sided heart valves, PA pressures estimated at 36 mmHg. PHYSICAL EXAMINATION: CURRENT VITAL SIGNS: Temperature 36.8, pulse 60 and regular, respiratory rate 18, blood pressure 103/65, O2 sat 97% on room air. SKIN: Without lesion. HEENT: Atraumatic, normocephalic. PERRLA, EOMI. Conjunctivae pale. Sclerae nonicteric. Fundi poorly visualized. NECK: Veins not distended at 45 degrees. No obvious adenopathy in the supra or infraclavicular areas. There is some fullness in the right supraclavicular region. LUNGS: Distant P&A. No audible wheezes. CARDIAC: Regular rate and rhythm. I do not appreciate a gallop. ABDOMEN: Soft, scaphoid. No evidence for hepatosplenomegaly. EXTREMITIES: Left lower extremity shows 2+ pitting edema with positive calf tenderness, and the right groin area is tender now with some swelling in that right lower extremity as well. Blood cultures are negative. The patient has been started on Eliquis 10 mg p.o. b.i.d. The patient is not on intravenous heparin or Lovenox as the heparin was stopped yesterday. OVERALL ASSESSMENT AND PLAN: 1. Multiple pulmonary emboli, acute and worsening thrombosis involving the deep venous system of the left lower extremity and possibly of the right as well as the left iliac, common femoral and inferior vena cava. 2. Chronic atrial fibrillation. 3. Cavitary pulmonary nodules. 4. Hypertension. I am concerned that patient may have an underlying neoplasm as her siblings have had associated with their hypercoagulable state. The cavitating pulmonary nodules are reminiscent of metastatic disease with cavitation possibly representing a squamous cell carcinoma. One cannot rule out vasculitis like Aldo's or granulomatous vasculitis or even an infectious etiology from septic pulmonary emboli. I think the most immediate concern is the presence of thrombus in the IVC as well as extensive thrombus in the left lower extremity and now new symptoms involving the right inguinal and groin area that could very well be extension of the thrombus. I think patient should be considered for an IVC filter and will discuss with primary care service. I think septic emboli may need to be ruled out with transthoracic echocardiogram and I believe these nodules need to be assessed perhaps even wedged out for diagnostic purposes. I would send off serology for vasculitis including ANCA, antiglomerular basement membrane antibody, connective tissue disorders, Rheumatoid disease can do this and certainly atypical mycobacterial infection or even a bacterial etiology, i.e., Gram negative or MRSA. We will discuss further with the primary care service. JESSA
--- NOTE | 2017-08-21 13:37 | Hematology/Oncology Prog Note ---
Hematology/Onc Progress Note Date of Service Aug 21, 2017. Subjective I saw her at bedside, she is sitting comfortably in the bed, reviewed her chart , overnight she has done well other than some nonspecific pain in the right groin region, she says that swelling involving the left lower extremity has slightly improved, she denies any new abdominal pain, no new cardiac or pulmonary symptoms, no fever, hemodynamically she has remained stable, O2 saturation on room air is around 94%. No fever. No increasing chest pain. She noticed some slight swelling in the size of the neck, she says that she had some fall with injury to the right lower neck few years back, may have some fracture involving the clavicle at that time. She does not have any local pain. No right upper extremity edema. Blood workup done on 08/21/2017: - WBC 6800, H&H of 10.2/30.2, Platelet count of 114,000. - BUN/creatinine: 40/1.0, calcium 8.2. - PT --> 24.3, INR 2.4, PTT 55 seconds. - Right lower extremity Doppler evolution done on 08/21/2017 showed patent common femoral vein, great saphenous vein, deep femoral vein, femoral vein and popliteal vein. The mere thrombus noted in the peroneal vein. I spoke with the patient as well as family members who were at bedside, reviewed the imaging studies done today, earlier in the day she was seen by Dr. Ignacio, also spoke with the hospitalist regarding her care, we decided that we are not planning for anticoagulant treatment Coumadin in her case at this time because of extensive thrombus noted in the left lower extremity extending up to the IVC. She will continue on IV heparin therapy, planning for vascular surgery evaluation. Planning for Lovenox as a preferred anticoagulant treatment as an outpatient in her case. Will follow-up. Dr. Marko Calloway. Hem/Onc Vital Signs Vital Signs Past 12 Hours Date Time Temp Pulse Resp B/P (MAP) Pulse Ox O2 Delivery O2 Flow Rate FiO2 08/21/17 12:00 94 Room Air 08/21/17 11:31 36.5 68 18 121/66 (84) 98 Room Air 08/21/17 08:00 97 Room Air 08/21/17 07:25 36.8 60 18 103/65 (78) 97 Room Air 08/21/17 04:00 94 Room Air 08/21/17 04:00 36.7 62 22 123/77 (92) 95 Room Air
[2017-08-21] MEDS ORDERED: GLUCAGON FOR INJ 1 MG VIAL SQ PRN (19:30)
[2017-08-21] MEDS ORDERED: GLUCOSE 40% GEL 15 GM TUBE PO PRN (19:30)
[2017-08-21] MEDS ORDERED: GLUCOSE 10 TABS/TUBE PO PRN (19:30)
[2017-08-21] MEDS ORDERED: DEXTROSE 50% 50 ML SYR IV PRN (19:30)
[2017-08-21] MEDS: LISINOPRIL 40 MG TAB PO SCH (20:46)
[2017-08-21] MEDS: ATORVASTATIN 20 MG TAB PO SCH (20:47)
[2017-08-21] MEDS: INSULIN ASPART 100 UNITS/ML 3 ML PEN SC SCH (20:54)
[2017-08-21] MEDS ORDERED: APIXABAN 2.5 MG TAB PO SCH (21:00)
[2017-08-22 03:29] VITALS: BP 116/69; PULSE 60; TEMP 36.8; O2SAT 98
[2017-08-22 04:55] LABS: PARTIAL THROMBOPLASTIN RATIO 1.6
[2017-08-22] MEDS: OXYCODONE/ACETAMINOPHEN 5-325 TAB PO PRN ×2 (05:26→09:05)
[2017-08-22] MEDS ORDERED: HEPARIN IV BOLUS 3,000 UNIT in SYRINGE 0 ML IV ONE (06:30)
[2017-08-22] MEDS: HEPARIN 25,000 UNIT/500ML D5W 500 ML IV PRN (06:34)
[2017-08-22 07:05] LABS: INR 1.7 (0.9-1.1); PROTHROMBIN TIME (PATIENT) 17.7 SECONDS (9.0-12.0)
[2017-08-22 07:08] LABS: ESTIMATED AVERAGE GLUCOSE 278 mg/dl; HA1C FLAG Normal (Normal)
[2017-08-22 07:21] VITALS: BP 153/71; PULSE 62; TEMP 36.7; O2SAT 91
[2017-08-22] MEDS: SOTALOL HCL 80 MG TAB PO SCH (07:57)
[2017-08-22] MEDS: DOXYCYCLINE HYCLATE 100 MG CAP PO SCH (07:58)
[2017-08-22] MEDS: LISINOPRIL 40 MG TAB PO SCH (07:59)
[2017-08-22] MEDS: PROPRANOLOL HCL 20 MG TAB PO SCH (08:00)
[2017-08-22] MEDS: DILTIAZEM HCL 180 MG CAPCR PO SCH (08:01)
[2017-08-22] MEDS: INSULIN ASPART 100 UNITS/ML 3 ML PEN SC SCH ×2 (08:07→11:00)
[2017-08-22] MEDS: INSULIN ASPART 100 UNITS/ML 3 ML PEN SQ SCH (08:07)
[2017-08-22] MEDS: INSULIN GLARGINE SOLOSTAR 100 UNITS/ML 3 ML PEN SC SCH (08:08)
[2017-08-22] MEDS ORDERED: NURSING VERBAL MED ORDER ONE (09:00)
[2017-08-22] MEDS ORDERED: OXYCODONE/ACETAMINOPHEN 5-325 TAB PO PRN (09:15)
[2017-08-22] MEDS ORDERED: OXYCODONE/ACETAMINOPHEN 5-325 TAB PO ONE (09:15)
[2017-08-22 11:25] VITALS: Ht 167.6 cm; Wt 72.6 kg
[2017-08-22 11:42] VITALS: BP 147/75; PULSE 72; TEMP 36.3; O2SAT 98
--- NOTE | 2017-08-22 11:54 | PULMONARY PROGRESS NOTE ---
DATE: 08/22/2017 DATE: 08/22/2017 SUBJECTIVE: The patient's major complaint continues to be right inguinal pain radiating to the right hip. The pain appears to be severe. The patient has received an injection for left-sided sciatica as well as right-sided symptoms in the past and has been evaluated at a pain clinic in [place] along with an orthopedist. The Doppler exam done yesterday on the right lower extremity showed a patent common femoral vein, greater saphenous vein, deep femoral vein. There was some mild thrombus noted in the peroneal vein. Apparently Armin Marmolejo works with Dr. Calvo has seen the patient and tentatively patient is scheduled for a vena cava filter to be placed tomorrow via the right IJ root. The patient denies respiratory symptoms currently. OBJECTIVE: VITAL SIGNS: Temperature 36.7, pulse 62 and regular, respiratory rate 18, blood pressure 153/71, O2 sat 91% on room air. SKIN: Without lesion. HEAD, EYES, EARS, NOSE, AND THROAT: Atraumatic, normocephalic. PERRLA. LUNGS: Distant P&A. CARDIAC EXAMINATION: Regular rate and rhythm. No murmurs or gallops. ABDOMEN: Soft, scaphoid. EXTREMITIES: Left lower extremity shows positive Homans' sign with calf pain. The right inguinal area is somewhat tender. I cannot palpate a mass. There is trace pedal edema involving the right lower extremity. No calf tenderness per se. LABORATORY DATA: Yesterday, H&H 10.2 and 30.2. Glucose levels have been erratic, anywhere from 361 to 206. Hemoglobin A1c is 11.3. PT/INR is 1.7 today and PTT/INR was 1.6. OVERALL ASSESSMENT AND PLAN: An 82-year-old white female with acute multiple pulmonary emboli as well as the presence of cavitating pulmonary nodules and extensive DVT involving the entire left deep venous system, left iliac and vena cava with minimal thrombosis involving the peroneal vein of the right lower extremity, but in my opinion has failed on oral anticoagulant in the form of warfarin and requires Lovenox therapy long-term. I am concerned about a neoplasm driving her hypercoagulable state and will need a vena cava filter placed because of the failure while on oral agents to protect her from extensive DVT as well as the presence of large clot burden involving the vena cava. I do believe the patient will need X-rays of the right hip as severe arthritis or even aseptic necrosis, possibly leading to right groin pain. It is possible that right-sided SI joint disease with inflammation is causing these symptoms but the right groin pain does not appear to be the result of her clot burden to the best that we can determine. I think possible wedge resection of a cavitating pulmonary nodule may be needed for diagnostic purposes in the near future as well. We will continue to follow the patient during her hospital stay and as an outpatient. Family has notified her endoscope technician and paper reel operator for all scans and records to be forwarded to the family and hand carried to the medical floor for our perusal and review.
[2017-08-22] MEDS ORDERED: MoRPHine SULFATE 2 MG/ML CARP IV PRN ×2 (12:00)
[2017-08-22] MEDS: CEFTRIAXONE SOD INJ 1 GM in DEXTROSE 5% ADD-VANTAGE 50ML 50 ML IV SCH (12:02)
[2017-08-22] MEDS ORDERED: HEPARIN INJ ×3 (12:24→13:34)
[2017-08-22] MEDS ORDERED: LDDP5 TD (12:24)
[2017-08-22] MEDS ORDERED: OXYC-57 PO (12:24)
[2017-08-22] MEDS ORDERED: LIDODERM (LIDOCAINE) PATCH 5% TD SCH (12:30)
--- NOTE | 2017-08-22 12:38 | Discharge Instructions ---
Discharge Instructions Date of Service Aug 22, 2017. Admission Reason for Admission: Deep Venous Thrombosis, Pulmonary Embolism Discharge Discharge Diagnosis / Problem: PULMONARY EMBOLISM /LOWER EXTREMITY BILATERAL DVT WITH INVOLEMENT OF IVC Discharge Goals Goal(s): Diagnostic testing, Therapeutic intervention Activity Recommendations Activity Limitations: as noted below ( TOLERATED ) . Instructions / Follow-Up Instructions / Follow-Up TRANSFERRED TO [facility] FOR FURTHER MANAGEMENT OF EXTENSIVE BILATERAL DVT AND PULMONARY EMBOLISM WILL POSSIBLY NEED IR GUIDED IVC FILTER PLACEMENT TO PREVENT FURTHER PROPAGATION OF DVT IV HEPARIN WILL BE CONTINUED EN ROUTE Current Hospital Diet Patient's current hospital diet: AHA Diet (Heart Healthy), Diabetes Type 2 Diet Discharge Diet Recommended Diet: AHA Diet (Heart Healthy), Diabetes Type 1 Diet Pending Studies Studies pending at discharge: no Laboratory Results Hemoglobin A1c Test 08/22/17 04:37 Range/Units Estimated Average Glucose 278 mg/dl Hemoglobin A1c 11.3 H 4.5-5.6 % Medical Emergencies . Who to Call and When: Medical Emergencies: If at any time you feel your situation is an emergency, please call 911 immediately. . Non-Emergent Contact Non-Emergency issues call your: Primary Care Provider (IV HEPARIN ) . . "Provider Documentation" section prepared by Patricia Skelton. . VTE Core Measure Inpt VTE Proph given/why not?: Other Anticoagulation (IV heparin)
--- NOTE | 2017-08-22 12:48 | Progress Note ---
Internal Med Progress Note Date of Service: Aug 22, 2017. Provider Documentation: SUBJECTIVE: complains of pain on rt groin area with radiation to anterior thigh to rt knee feels numbness at inner part of upper thigh rates pain as 10/10 , pt has hx of sciatica, gets intermittent steroid injection on back says her pain was always on the left hip no complain of chest pain or SOB , no SANTOS or orthopnea no cough , no fever or chills remains in room air OBJECTIVE: Vital Signs-as noted below Exam: General-elderly male , in distress due to rt upper thigh/groin pain , anxious Eyes-sclera non icteric , PERRLA/EOMI ENT-moist oral mucosa , normal oropharynx Neck-no JVD, trachea midline , no thyromegaly Lungs-clear to auscultate , no wheeze or rales Heart-regular s1/s2 Abdomen-soft, non tender Extremities-+ 2 edema on left lower ext , tenderness on rt groin and rt upper thigh , no erythema , swelling noted , normal range of motion Neuro-no focal neurological deficit Lab data as noted below. ASSESSMENT & PLAN: DVT BILATERAL LOWER EXTREMITY / PULMONARY EMBOLISM Doppler U/S showed extensive DVT throughout the left lower extremity deep venous system including the left iliac veins. CTA chest showed right-sided pulmonary emboli. USG OF RT LOWER EXT : Limited thrombus in the peroneal vein. On Coumadin and INR 2.7 on admission possible provoked DVT/PE due recent hold on Coumadin for epidural injection and multiple travel trip No history malignancy No prior history of thromboembolic disease. pt started on iv heparin drip will need IVC filter placement to prevent further propagation of thrombus Hematology and pulmonology consulted appreciate input CT abdomen/pelvis : - Left femoral vein and IVC thrombus. -Bilateral pulmonary nodules with a cavitary right middle lobe pulmonary nodule ECHO : no rt sided heart strain * The right ventricular systolic function is normal. * The left atrial size is normal. * Right atrial size is normal. * There is no evidence of pulmonary hypertension. The PA systolic pressure is less than 36 mmHg. Surgery consulted for IVC filter placement due extension of thrombus to Inf vena Cava unable to place filter recommend transfer to [facility]iary center for IR guided approach Heme onc Dr Calloway discussed with pt and Grand Daughter at bedside plan is to transfer to [facility] pt is in stable condition to be transferred via ground will have continued IV heparin infusion en route spoke with Dr Edwards Hospitalist at [facility], pt is accepted will be transferred to [place] later today Daughter present at bedside , updated at well , in agreement with transfer PULMONARY NODULES CTA chest showed multiple scattered cavitary nodules and few scattered tree-in- bud nodular opacities Possible due infectious etiology, septic emboli or malignancy Pulmonary consulted recommended repeat CT chest in 6 weeks pt was treated with empirical antibiotic Rocephin/doxycycline CHRONIC CHF WITH DIASTOLIC DYSFUNCTION No signs of acute heart failure BNP wnl Previous hospitalization record showed hx CHF (Family and pt not aware as per admitting physician) on Lisinopril Echo The left ventricle is normal in size. * There is borderline concentric left ventricular hypertrophy. * Ejection Fraction = 60-65%. * Grade I diastolic dysfunction, (abnormal relaxation pattern). * Aortic valve sclerosis mild, without significant aortic valvular stenosis. * Mild aortic regurgitation. * The right ventricular systolic function is normal. * The left atrial size is normal. * Right atrial size is normal. * There is no evidence of pulmonary hypertension. The PA systolic pressure is less than 36 mmHg. ATRIAL FIBRILLATION S/P catheter ablation. Rate control Continue sotalol and Cardizem was on Coumadin anticoagulation in past anticoagulation was interrupted few times in Nov /Dec for epidural injection of back and hip on IV heparin for PE/DVT HYPERTENSION on lisinopril 40mg BID, Cardizem and sotalol. ACUTE KIDNEY INJURY ON CKD STAGE 3 ( GFR ~50 ) resolved given IVF , cr approx baseline lisinopril resumed DM TYPE 2 poorly controlled Hgb A1C > 11 Lantus / NovoLog per protocol. Continue monitor BS DYSLIPIDEMIA On atorvastatin. ESSENTIAL TREMOR Continue propranolol. VTE PROPHYLAXIS On IV heparin RESUSCITATION STATUS FULL CODE DISPOSITION TRANSFER TO [facility] FOR FURTHER CARE ACCEPTING HOSPITALIST DR SHAHEEN EDWARDS Consultants: Oncology Pulmonary Vital Signs: Date Time Temp Pulse Resp B/P (MAP) Pulse Ox O2 Delivery O2 Flow Rate FiO2 08/22/17 12:00 Room Air 08/22/17 11:42 36.3 72 18 147/75 (99) 98 Room Air 08/22/17 08:00 Room Air 08/22/17 07:21 36.7 62 18 153/71 (98) 91 Room Air 08/22/17 04:02 Room Air 08/22/17 03:29 36.8 60 20 116/69 (85) 98 Room Air 08/22/17 00:00 Room Air 08/21/17 23:24 36.8 80 18 130/80 (97) 95 Room Air 08/21/17 20:00 Room Air 08/21/17 19:14 37.1 60 19 113/66 (82) 97 Room Air 08/21/17 16:00 Room Air 08/21/17 15:23 37.0 61 22 118/66 (83) 98 Room Air Lab Results: Results Past 24 Hours Test 08/21/17 16:34 08/21/17 16:38 08/21/17 18:48 08/21/17 20:40 Range/Units Bedside Glucose 370 361 312 245 70-90 mg/dl Test 08/22/17 04:37 08/22/17 06:30 08/22/17 11:38 08/22/17 12:21 Range/Units Prothrombin Time 17.7 9.0-12.0 SECONDS Prothromb Time International Ratio 1.7 0.9-1.1 Activated Partial Thromboplast Time 42.4 63.0 21.0-31.0 SECONDS Partial Thromboplastin Ratio 1.6 2.4 Estimated Average Glucose 278 mg/dl Hemoglobin A1c 11.3 4.5-5.6 % Bedside Glucose 206 163 70-90 mg/dl
[2017-08-22 12:57] LABS: PARTIAL THROMBOPLASTIN RATIO 2.4
--- NOTE | 2017-08-22 13:31 | Discharge Summary ---
Discharge Summary Date of Service Aug 22, 2017. Discharge Summary Admission Date: Aug 19, 2017 at 23:11 Discharge Date: Aug 22, 2017 Discharge Disposition: Acute care facility ([facility] -ACCEPTING PHYSICIAN DR Ariana ALEX ) Principal Diagnosis: PULMONARY EMBOLISM /LOWER EXTREMITY BILATERAL DVT WITH INVOLVEMENT OF IVC Procedures: RT LOWER EXTREMITY ULTRASOUND : 08/21/17 : FINDINGS: Right: Common femoral vein: Patent. Greater saphenous vein: Patent. Deep femoral vein: Patent. Femoral vein: Patent. Popliteal vein: Patent. Calf veins: Non compressibility and absence of color Doppler flow in the peroneal vein from the proximal to midportion consistent with thrombus. Other: None. IMPRESSION: Limited thrombus in the peroneal vein. Acuity is difficult to assess given the diminutive caliber of the vein. Otherwise patent veins. ECHO : 08/20/17 : The left ventricle is normal in size. There is borderline concentric left ventricular hypertrophy. Ejection Fraction = 60-65%. Grade I diastolic dysfunction, (abnormal relaxation pattern). Aortic valve sclerosis mild, without significant aortic valvular stenosis. Mild aortic regurgitation. The right ventricular systolic function is normal. The left atrial size is normal. Right atrial size is normal. There is no evidence of pulmonary hypertension. The PA systolic pressure is less than [address] ABDOMEN/PELVIS WITH IV CONTRAST 08/20/17 : IMPRESSION: 1. Nodularity of the gallbladder fundus likely secondary to adenomyomatosis 2. Nonobstructing 8 mm lower pole right renal calculus 3. No evidence of hepatic or adrenal metastasis. No evidence of pathologic adenopathy. 4. Left femoral vein and IVC thrombus. 5. Bilateral pulmonary nodules with a cavitary right middle lobe pulmonary nodule CT CHEST WITH CONTRAST 08/19/17 : IMPRESSION: 1. Right-sided pulmonary emboli. 2. Multiple scattered cavitary nodules seen predominantly within the right lung. Therefore, these favor septic pulmonary emboli. An infectious, inflammatory, or less likely neoplastic process could also have a similar appearance. Follow-up is recommended to ensure resolution. 3. There are also a few scattered tree-in-bud nodular opacities seen within the right middle lobe and lingula which favor a superimposed infectious bronchiolitis. LOWER EXTREMITY ULTRASOUND : 08/19/17 : FINDINGS: Extensive DVT seen throughout the left lower extremity deep venous systems including the visualized left iliac vein. The thrombus within the left superficial femoral vein and distal veins is occlusive. IMPRESSION: Extensive DVT throughout the left lower extremity deep venous system including the left iliac veins. Consultations: Oncology DR CALLOWAY -[facility] Pulmonary-DR VAN /DR SUAREZ -[facility] SUR[facility]ERY -DR SYLVAIN STONER -[facility] Medication Reconciliation New Medications: [Heparin ] () 13 ML INJ IV HEPARIN WT BASED PROTOCOL AT 6: 34 AM given BOLUS HEPARIN 3000 UNIT 13/ML/HR CURRENT RATE IV HEPARIN APTT 63.0 SEC @ 12:21 pm PTT ratio 2.4 Lidocaine (Lidocaine) 1 Patch Tdsy 1 PATCH TD QAM for 10 Days, #10 PATCH Oxycodone/Acetaminophen 5MG/325MG (Percocet 5MG/325MG) Tab 0.5 TAB PO Q4H PRN for Pain, #10 TAB PAIN Continued Medications: Alprazolam (Xanax) 0.25 Mg Tab 0.25 MG PO DAILY PRN for Anxiety, TAB Atorvastatin (Lipitor) 40 Mg Tab 20 MG PO QPM, TAB Diltiazem HCl (Diltiazem HCl ER) 360 Mg Tabcr 360 MG PO DAILY Fish Oil ([place]-3) 1 Ea Cap 1 CAP PO BID, CAP Furosemide (Lasix) 40 Mg Tab 40 MG PO DAILY PRN for edema, TAB Insulin Aspart (Novolog) 100 Units/Ml Inj 10 UNITS SQ BIDM PLUS SLIDING SCALE Insulin Glargine (Lantus) 100 Unit/Ml Inj 40 SC QAM, VIAL Lisinopril (Zestril) 40 Mg Tab 40 MG PO BID, TAB Propranolol (Inderal) 20 Mg Tab 20 MG PO BID, TAB Sotalol Hcl (Sotalol Hcl) 120 Mg Tab 120 MG PO BID Discontinued Medications: Warfarin Sod (Jantoven) 5 Mg Tab 5 MG PO DAILY, TAB Referrals At Discharge Follow up Referrals: Oncology/Hematology Referral - Please Call For Appointment with Marko Calloway M.D. Admission Information HPI (per Admitting provider): 82 YO female who resides in [place] in the summer and [place] in the winter, visiting family in [place] for the holidays. History of atrial fibrillation, hypertension, diabetes, and other problems noted below. On warfarin for atrial fibrillation. Had a series of epidural injections in June and early July. Warfarin was held for each injection, the restarted. INR about 3 days prior to her departure was 1.9. Traveled from [place] --> [place] --> [place] 6 days prior to admission. Noted some left groin pain after arriving. Over the past several days developed swelling and increasing pain in her left lower extremity. Today she felt somewhat dyspneic. No fever. No pleuritic chest pain or anginal symptoms. No cough, hemoptysis. . Physical Exam (per Admitting): General Appearance: WD/WN, no apparent distress Head: normocephalic, atraumatic Eyes: normal inspection, PERRL, EOMI, sclerae normal, + pertinent finding ( conjunctivae clear) ENT: hearing grossly normal, pharynx normal Neck: supple, no adenopathy, thyroid normal, no JVD, trachea midline Respiratory/Chest: lungs clear, no respiratory distress, no accessory muscle use Cardiovascular: regular rate, rhythm, no edema, no gallop, no JVD, no murmur , normal peripheral pulses Abdomen/GI: normal bowel sounds, non tender, soft, no organomegaly Extremities/Musculoskelatal: + pertinent finding (moderate swelling left lower extremity proximally and distally with thigh and calf tenderness) 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 CTA chest showed right-sided pulmonary emboli. USG OF RT LOWER EXT : Limited thrombus in the peroneal vein. On Coumadin and INR 2.7 on admission possible provoked DVT/PE due recent hold on Coumadin for epidural injection and multiple travel trip No history malignancy No prior history of thromboembolic disease. pt started on iv heparin drip will need IVC filter placement to prevent further propagation of thrombus Hematology and pulmonology consulted appreciate input CT abdomen/pelvis : - Left femoral vein and IVC thrombus. -Bilateral pulmonary nodules with a cavitary right middle lobe pulmonary nodule ECHO : no rt sided heart strain * The right ventricular systolic function is normal. * The left atrial size is normal. * Right atrial size is normal. * There is no evidence of pulmonary hypertension. The PA systolic pressure is less than 36 mmHg. Surgery consulted for IVC filter placement due extension of thrombus to Inf vena Cava unable to place filter recommend transfer to Tertiary center for IR guided approach Heme onc Dr Calloway discussed with pt and Grand Daughter at bedside plan is to transfer to [facility] pt is in stable condition to be transferred via ground will have continued IV heparin infusion en route spoke with Dr [place] [facility] is [place] will be transferred to [place] later today Daughter present at bedside , updated at well , in agreement with transfer PULMONARY NODULES CTA chest showed multiple scattered cavitary nodules and few scattered tree-in- bud nodular opacities Possible due infectious etiology, septic emboli or malignancy Pulmonary consulted recommended repeat CT chest in 6 weeks pt was treated with empirical antibiotic Rocephin/doxycycline CHRONIC CHF WITH DIASTOLIC DYSFUNCTION No signs of acute heart failure BNP wnl Previous hospitalization record showed hx CHF (Family and pt not aware as per admitting physician) on Lisinopril Echo The left ventricle is normal in size. * There is borderline concentric left ventricular hypertrophy. * Ejection Fraction = 60-65%. * Grade I diastolic dysfunction, (abnormal relaxation pattern). * Aortic valve sclerosis mild, without significant aortic valvular stenosis. * Mild aortic regurgitation. * The right ventricular systolic function is normal. * The left atrial size is normal. * Right atrial size is normal. * There is no evidence of pulmonary hypertension. The PA systolic pressure is less than 36 mmHg. ATRIAL FIBRILLATION S/P catheter ablation. Rate control Continue sotalol and Cardizem was on Coumadin anticoagulation in past anticoagulation was interrupted few times in Jun /Jul for epidural injection of back and hip on IV heparin for PE/DVT HYPERTENSION on lisinopril 40mg BID, Cardizem and sotalol. ACUTE KIDNEY INJURY ON CKD STAGE 3 ( GFR ~50 ) resolved given IVF , cr approx baseline lisinopril resumed DM TYPE 2 poorly controlled Hgb A1C > 11 Lantus / NovoLog per protocol. Continue monitor BS DYSLIPIDEMIA On atorvastatin. ESSENTIAL TREMOR Continue propranolol. VTE PROPHYLAXIS On IV heparin RESUSCITATION STATUS FULL CODE DISPOSITION TRANSFER TO [facility] FOR FURTHER CARE ACCEPTING HOSPITALIST DR SHAHEEN ALEX Consultants: Oncology Pulmonary Total time spent on discharge = 55 MINS This includes examination of the patient, discharge planning, medication reconciliation, and communication with other providers. Discharge Instructions Discharge Instructions Date of Service Aug 22, 2017. Admission Reason for Admission: Deep Venous Thrombosis, Pulmonary Embolism Discharge Discharge Diagnosis / Problem: PULMONARY EMBOLISM /LOWER EXTREMITY BILATERAL DVT WITH INVOLVEMENT OF IVC Discharge Goals Goal(s): Diagnostic testing, Therapeutic intervention Activity Recommendations Activity Limitations: as noted below ( TOLERATED ) . Instructions / Follow-Up Instructions / Follow-Up TRANSFERRED TO [facility] FOR FURTHER MANAGEMENT OF EXTENSIVE BILATERAL DVT AND PULMONARY EMBOLISM WILL POSSIBLY NEED IR GUIDED IVC FILTER PLACEMENT TO PREVENT FURTHER PROPAGATION OF DVT IV HEPARIN WILL BE CONTINUED EN ROUTE Current Hospital Diet Patient's current hospital diet: AHA Diet (Heart Healthy), Diabetes Type 2 Diet Discharge Diet Recommended Diet: AHA Diet (Heart Healthy), Diabetes Type 1 Diet Pending Studies Studies pending at discharge: no Laboratory Results Hemoglobin A1c Test 08/22/17 04:37 Range/Units Estimated Average Glucose 278 mg/dl Hemoglobin A1c 11.3 H 4.5-5.6 % Medical Emergencies . Who to Call and When: Medical Emergencies: If at any time you feel your situation is an emergency, please call 911 immediately. . Non-Emergent Contact Non-Emergency issues call your: Primary Care Provider (IV HEPARIN ) . . "Provider Documentation" section prepared by Patricia Skelton. . VTE Core Measure Inpt VTE Proph given/why not?: Other Anticoagulation (IV heparin) Additional Copies To Marko Calloway M.D.
--- NOTE | 2017-08-22 13:41 | Hematology/Oncology Prog Note ---
Hematology/Onc Progress Note Date of Service Aug 22, 2017. Subjective I saw her at bedside, she sitting comfortably in the bed, left leg edema has slightly improved but she has persistent the right groin discomfort, she took Percocet last night for the symptom treatment, no increasing leg edema on the right side, denies any abdominal discomfort, no nausea, no vomiting, no new cardiac or pulmonary symptoms, no hemoptysis, no bleeding from any sites, no fever. Hemodynamically she has remained stable over the night, O2 saturation on room around 98%. Today she was seen by Dr. Calvo for possible IVC filter placement, I also spoke with him personally about her case, because of the location of the IVC thrombus which is very close to the renal vein, he is not comfortable putting IVC filter placement locally here and suggested for transfer at tertiary care center. I spoke with the patient, her granddaughter as well as hospitalist about her case, presently she is receiving IV heparin, reviewed her blood workup done today, INR dropped down to around 1.7 (now she is off the Coumadin treatment), PTT is 63 seconds. After discussion with the patient as well as office, we decided to transfer her at [facility] for further evaluation and management, possible consideration for IVC filter placement. Recent imaging study showed no new suspicious findings in the abdomen which is suggestive of some kind of cancer diagnosis. She has cavitating lung nodules in the right lung but she is otherwise asymptomatic, blood culture has remained negative. Will follow-up as an outpatient. Earlier I plan for Lovenox therapy for anticoagulant treatment as an outpatient in her case. Marko Calloway MD Hem/Onc Vital Signs Vital Signs Past 12 Hours Date Time Temp Pulse Resp B/P (MAP) Pulse Ox O2 Delivery O2 Flow Rate FiO2 08/22/17 12:00 Room Air 08/22/17 11:42 36.3 72 18 147/75 (99) 98 Room Air 08/22/17 08:00 Room Air 08/22/17 07:21 36.7 62 18 153/71 (98) 91 Room Air 08/22/17 04:02 Room Air 08/22/17 03:29 36.8 60 20 116/69 (85) 98 Room Air
[2017-08-22] MEDS ORDERED: ONDANSETRON INJ 2 MG/ML 2 ML VIAL IV STA (15:53)
[2017-08-22] MEDS ORDERED: ONDANSETRON INJ 2 MG/ML 2 ML VIAL ONE (15:55)
[2017-08-22] MEDS: ALPRAZOLAM 0.25 MG TAB PO PRN (16:01)
--- NOTE | 2017-08-23 12:51 | CONSULTATION REPORT ---
ATTENDING: Dr. Calvo. REASON FOR CONSULT: Extensive lower extremity DVT. HISTORY OF PRESENT ILLNESS: The patient is an 82-year-old female, recently traveling for the holidays, developed pain and swelling in her left leg which increased over several days. She had flown from [facility] to [place] through [place] on August 13. Her travel time was between 4 and 5 hours total. She then began having swelling in her leg. She was admitted yesterday morning by the medical service, seen by hematology. She does have a history of atrial fibrillation and had ablation. She is on Coumadin. She has no known malignancy. She drove from [place] to [facility] in the fall. She spends about 8 months of the year in [facility]. She had been off her Coumadin intermittently for a series of 4 lumbar injections around that same time. She did not have any symptoms; however, until recently. PAST MEDICAL HISTORY: Afib, CHF, type 2 diabetes, dyslipidemia, hypertension, hypothyroidism, osteoporosis, and essential tremor. PAST SURGICAL HISTORY: Pacemaker in 2006 with generator change in 2011. She had ablation for her aFib, hysterectomy, right knee replacement and tonsillectomy. SOCIAL HISTORY: Denies tobacco use. Occasional alcohol use. She spends the majority of her time in [place] about 8 months and the other 4 months in [place]. She has family in [place] and therefore travels here as well. ALLERGIES: PROPOFOL AND LEVAQUIN. HOME MEDICATIONS: Lipitor 20 mg daily, Diltiazem 360 mg daily, fish oil 1 tablet b.i.d., NovoLog 10 units b.i.d., Lantus 40 units daily, lisinopril 40 mg daily, Inderal 20 mg b.i.d., sotalol 120 mg b.i.d., Coumadin 5 mg daily, Xanax 0.25 mg as needed, and Lasix 40 mg as needed for edema. Inpatient medications also include heparin drip, Percocet half tablet every 4 hours as needed, Vibramycin 100 mg p.o. b.i.d., and Rocephin 1 gram IV daily. REVIEW OF SYSTEMS: GENERAL: She enjoys overall good health and remains quite active. No known malignancy. MUSCULOSKELETAL: She had some left groin and thigh pain on admission that has since improved. She is now complaining of some right groin pain. PHYSICAL EXAMINATION: GENERAL: She appears in no acute distress. VITAL SIGNS: Temperature 36.7, pulse 62, respirations 18, blood pressure 153/71, pulse ox 91% on room air. Respirations are regular. No respiratory distress. HEENT: Unremarkable. ABDOMEN: Soft, nondistended. EXTREMITIES: The right lower extremity is without edema. Left lower extremity has swelling of the foot and ankle into the calf. She has tenderness of the thigh. IMAGING: Ultrasound shows extensive DVT throughout the left lower extremity and left iliac veins. Ultrasound showed a limited thrombus in the peroneal vein on the right. CT of the chest shows right-sided pulmonary emboli. There are multiple scattered cavitary nodules in the right lung, which favors septic emboli. There was left femoral vein and inferior vena cava thrombus. There was an 8 mm right lower pole renal calculus. IMPRESSION: Extensive lower extremity deep venous thrombosis extending into the vena cava along with pulmonary emboli. PLAN: Dr. Calvo reviewed the CT scan with radiology. The thrombus approaches the renal veins. He felt that she would be better served at a center where endovascular intervention is available and they can further evaluate the extent of this thrombus and place IVCF possibly below the renal veins or if needed a removable filter above. These recommendations were discussed with Dr. Skelton and Dr. Calloway.
== END 2017-08-22 16:16 | disposition short-term general hospital (02) | DRG 175 ==
LOC: C.EDB 20:51 → C.2T 23:11 → ENRESERV 23:27
PROVIDERS: ADMIT Hospitalist; ATTEND Hospitalist
DX: I26.99 Other pulmonary embolism without acute cor pulmonale (principal); I82.220 Acute embolism and thrombosis of inferior vena cava; N17.9 Acute kidney failure, unspecified; I82.412 Acute embolism and thrombosis of left femoral vein; I82.423 Acute embolism and thrombosis of iliac vein, bilateral; I82.812 Embolism and thrombosis of superficial veins of left lower extremity; I82.4Z1 Acute embolism and thrombosis of unspecified deep veins of right distal lower extremity; I50.32 Chronic diastolic (congestive) heart failure; I48.2 Chronic atrial fibrillation; Z79.01 Long term (current) use of anticoagulants; N20.0 Calculus of kidney; Z82.49 Family history of ischemic heart disease and other diseases of the circulatory system; R91.8 Other nonspecific abnormal finding of lung field; Z95.0 Presence of cardiac pacemaker; N18.3 Chronic kidney disease, stage 3 (moderate); G25.0 Essential tremor

== ENCOUNTER 2017-08-27 10:33 | Emergency (ER) | payer OTHER, MEDICARE ==
[~2017-08-27] VITALS: Ht 167.6 cm; Wt 77.6 kg
[2017-08-27] VITALS (14 sets, daily range): BP systolic 101–136; BP diastolic 45–65; PULSE 60–62; TEMP 36.6–37.6; O2SAT 98–100; Ht 167.6 cm; Wt 77.6 kg
[~2017-08-27 10:33] MED LIST changes: -ALEN70TA4 PO; +ATOR-24 PO; -AZIT-57 PO; -CALC0.2510 PO; -CARB25TA16 PO; +DILT360C23 PO; -ENAL1TAB31 PO; +HEPARIN INJ; -HYDR-4717 PO; +INSDGI SC; -INSDGIPEN SC; +LDDP5 TD; -LEVO25TA PO; +LISI40TA PO; -METF500T5 PO; +NVLG SQ; -NVLGIPEN SC; +OMEG10007 PO; -OMEG120013 PO; +OXYC-57 PO; +PROP20TA67 PO; -WARF1TAB6 PO; -WARF5TAB7 PO
--- NOTE | 2017-08-27 10:52 | EMERGENCY ROOM VISIT NOTE ---
History Report prepared by Alix: Bereket Monroe Under the Supervision of: Dr. Liban Zayas D.O. First contact with patient: 10:39 Chief Complaint: ABNORMAL LABS Stated Complaint: ABNORMAL LABS History of Present Illness The patient is an 82 year old female with a history of diabetes, hypertension, and atrial fibrillation, who presents to the Emergency Room with complaints of a worsening hemoglobin level over the past few weeks. The patient states that she is visiting here from [place], and has been here for 2 weeks. She notes that her left foot was swollen when she left [place], but her doctor there thought that it was just edema. However, when she got here, the swelling got worse, and she ended up having a blood clot in her left leg and left lung here, and was in the hospital here for 5 days. She states that she was transferred to [facility], and had an IV filter put in through her neck, which went well. The patient adds that she was doing fine in rehab here in [place], but her hemoglobin has progressively dropped from 12 to 6. She notes that she has been having pain in her right groin which started even before she was brought to [place]. She adds that she started having a hard time feeling her right leg from her hip to her knee with some pain, which started a week ago. The patient says that she also feels a bit of abdominal distension. She denies any nausea, vomiting, shortness of breath, chest pain, flank pain, abdominal pain, melena, or hematochezia. She notes that she has been on and off her Warfarin for a while now, which she thinks may have caused some of her problems. She gets regular Lovenox injections. Source of History: patient, family Onset: Over past few weeks Position: other (global - abnormal labs) Quality: other (hemogobin from 12 to 6) Timing: worsening Associated Symptoms: No chest pain, No SOB, No nausea, No vomiting, No abdominal pain (but notes abdominal distension), No melena, No hematochezia Note: Associated symptoms: Pain and hard time feeling right leg. Pain in right groin. Review of Systems See HPI for pertinent positives & negatives. A total of 10 systems reviewed and were otherwise negative. Past Medical & Surgical Medical Problems: (1) Atrial fibrillation (2) CHF (congestive heart failure) (3) Diabetes mellitus, type 2 (4) Dyslipidemia (5) Essential tremor (6) Hypertension (7) Hypothyroidism (8) Osteoporosis Surgical Problems: (1) Status post cardiac pacemaker procedure (2) Status post catheter ablation of atrial fibrillation (3) Status post hysterectomy (4) Status post right knee replacement (5) Status post tonsillectomy Family History COPD (chronic obstructive pulmonary disease) MOTHER Colon cancer BROTHER Congestive heart failure MOTHER Coronary artery disease MOTHER DVT BROTHER SISTER Lung cancer SISTER Social History Smoking Status: Never Smoker Alcohol Use: none Drug Use: none Housing Status: lives alone Occupation Status: retired Current/Historical Medications Scheduled Diltiazem Hcl Ext Rel (Tiazac), 240 MG PO DAILY Enoxaparin (Lovenox), 80 MG SQ Q12H Insulin Aspart (Novolog), SQ ACHS Insulin Glargine (Lantus), 40 SC QAM Senna/Docusate Sod (Senokot S), 1 TAB PO DAILY Sotalol Hcl (Sotalol Hcl), 120 MG PO Q12 Scheduled PRN Acetaminophen (Tylenol), 500 MG PO Q4 PRN for Pain or Fever Alprazolam (Xanax), 0.25 MG PO HS PRN for Anxiety Bisacodyl (Bisac-Evac), 1 SUPP [place] DAILY PRN for Constipation Dextrose (Diabetic Use) (Glucose), 1 TUBE PO UD PRN for Hypoglycemia Protocol Docusate Sodium (Colace), 1 CAP PO BID PRN for Constipation Glucagon (Glucagon Emergency Kit), 1 MG SC UD PRN for Hypoglycemia Protocol Magnesium Hydroxide (Milk Of Magnesia), 30 ML PO DAILY PRN for Constipation Oxycodone Immediate Rel Tab (Roxicodone Ir), 5 MG PO Q8 PRN for Pain Polyethylene Glycol 3350 (Miralax), 17 GM PO DAILY PRN for Constipation Sodium Phosphate/Biphosphate (Fleet Enema), 1 EA [place] DAILY PRN for Constipation Allergies Coded Allergies: Levofloxacin (Verified Adverse Reaction, Mild, NAUSEA, 08/27/17) Propofol (Verified Adverse Reaction, Mild, NAUSEA, 08/27/17) Physical Exam Vital Signs Date Time Temp Pulse Resp B/P (MAP) Pulse Ox O2 Delivery O2 Flow Rate FiO2 08/27/17 16:03 37.3 60 16 124/54 98 Room Air 08/27/17 16:02 37.3 60 19 124/54 98 08/27/17 15:49 37.3 60 21 115/51 99 08/27/17 15:34 37.6 60 19 125/53 99 08/27/17 15:27 60 101/45 99 Room Air 08/27/17 15:26 37.3 60 18 101/45 98 08/27/17 15:00 60 18 104/47 98 Room Air 08/27/17 14:30 60 14 104/47 98 08/27/17 14:15 60 16 119/50 98 08/27/17 14:00 37.0 60 16 107/52 98 08/27/17 13:45 60 18 120/47 98 08/27/17 13:26 37.1 60 14 116/46 99 08/27/17 13:15 37.4 60 18 108/55 98 08/27/17 13:05 37.1 60 16 119/56 99 08/27/17 13:00 60 18 119/56 100 Room Air 08/27/17 12:58 60 08/27/17 12:54 36.6 60 18 109/59 99 08/27/17 12:25 75 18 128/71 100 Room Air 08/27/17 11:04 36.6 94 18 135/76 99 Room Air 08/27/17 10:41 88 Physical Exam GENERAL: Patient is awake, alert, very anxious appearing. EYES: The conjunctivae are clear. The pupils are round and reactive. EARS, NOSE, MOUTH AND THROAT: The nose is without any evidence of any deformity. Mucous membranes are moist tongue is midline NECK: The neck is nontender and supple. RESPIRATORY: Normal respiratory effort is noted there is no evidence of wheezing rhonchi or rales CARDIOVASCULAR: Regular rate and rhythm noted to auscultation. Systolic murmur was suggested. GASTROINTESTINAL: The abdomen was mildly distended and soft. Tenderness in both lower quadrants. No guarding or rigidity. BACK: No midline tenderness appreciated. There was a hematoma noted on the right flank. MUSCULOSKELETAL/EXTREMITIES: There is no evidence of gross deformity full range of motion is noted in the hips and shoulders SKIN: Pedal edema bilaterally. Skin was warm and dry. Pulses are symmetric. NEUROLOGIC: Patient is awake alert and oriented x3. Medical Decision & Procedures ER Provider Diagnostic Interpretation: Radiology results as stated below per my review and radiologist interpretation: ABD/PELVIS IV CONTRAST ONLY CT DOSE: 539.57 mGy.cm HISTORY: Pain. Anemia. low HG, recent IVC filter TECHNIQUE: Multiaxial CT images of the abdomen and pelvis were performed following the use of intravenous contrast. A dose lowering technique was utilized adhering to the principles of ALARA. COMPARISON STUDY: 08/20/2017 FINDINGS: Stable basilar nodularity. Multiple parenchymal nodules are stable. Liver spleen and pancreas enhance uniformly. Nonobstructing lower pole right renal calcification. Several subcentimeter renal cortical cysts. No evidence for hydronephrosis. Adrenal glands are unremarkable. Interval placement of inferior vena caval filter inferior to the confluence of the renal veins. Interval development of a hematoma lateral right pelvis measuring 8 x 7 cm. Mild additional edematous change of the inferior right iliopsoas musculature. Hematoma extends to the anterior aspect of the right acetabulum, right hip, as well as anterior aspect of the right thigh. At its inferior aspect dimensions are 5 x 7 cm. These findings were not present on the prior study. There continues to be thrombus within the left femoral vein as well as inferior vena caval region. This is similar compared to the prior study. Slight nonspecific infiltrative changes subcutaneous fat anterior right thigh.. IMPRESSION: 1. Interval development of a rather prominent right lateral pelvic sidewall hematoma measuring 8 x 7 cm. 2. This extends inferiorly to the proximal right thigh were dimensions anterior to the right hip are 7 x 5 cm. 3. Interval placement of an inferior vena caval filter, appearing to be in good position. 4. Mild edematous change of the inferior right iliopsoas musculature. 5. Stable bilateral renal cysts with unchanging calcification lower pole right kidney. 6. Basilar pulmonary nodularity unchanged from the prior exam. 7. Thrombus within the left femoral vein and inferior vena cava unchanged from the prior study. The above report was generated using voice recognition software. It may contain grammatical, syntax or spelling errors. Electronically signed by: Darius James M.D. 08/27/2017 12:19 PM Dictated Date/Time: 08/27/2017 12:12 PM CHEST ONE VIEW PORTABLE CLINICAL HISTORY: ABDOMINAL PAIN/GI pain COMPARISON STUDY: 08/19/2017 FINDINGS: Lungs are considered clear at this time. Small calcified granuloma right midlung. No focal infiltrate. Bipolar cardiac pacemaker. IMPRESSION: Chronic and postoperative change. No acute process. The above report was generated using voice recognition software. It may contain grammatical, syntax or spelling errors. Electronically signed by: Darius James M.D. 08/27/2017 11:12 AM Dictated Date/Time: 08/27/2017 11:11 AM Laboratory Results 08/27/17 10:47 Red Blood Count 2.09, Mean Corpuscular Volume 92.3, Mean Corpuscular Hemoglobin 30.6, Mean Corpuscular Hemoglobin Concent 33.2, Mean Platelet Volume 9.0, Neutrophils (%) (Auto) 70.1, Lymphocytes (%) (Auto) 17.7, Monocytes (%) (Auto) 9.4, Eosinophils (%) (Auto) 0.6, Basophils (%) (Auto) 0.3, Neutrophils # (Auto) 5.49, Lymphocytes # (Auto) 1.39, Monocytes # (Auto) 0.74, Eosinophils # (Auto) 0.05, Basophils # (Auto) 0.02 08/27/17 10:47 Test 08/27/17 10:47 08/27/17 10:53 08/27/17 12:25 White Blood Count 7.84 K/uL (4.8-10.8) Red Blood Count 2.09 M/uL (4.2-5.4) Hemoglobin 6.4 g/dL (12.0-16.0) Hematocrit 19.3 % (37-47) Mean Corpuscular Volume 92.3 fL (80-100) Mean Corpuscular Hemoglobin 30.6 pg (25-34) Mean Corpuscular Hemoglobin Concent 33.2 g/dl (32-36) Platelet Count 230 K/uL (130-400) Mean Platelet Volume 9.0 fL (7.4-10.4) Neutrophils (%) (Auto) 70.1 % Lymphocytes (%) (Auto) 17.7 % Monocytes (%) (Auto) 9.4 % Eosinophils (%) (Auto) 0.6 % Basophils (%) (Auto) 0.3 % Neutrophils # (Auto) 5.49 K/uL (1.4-6.5) Lymphocytes # (Auto) 1.39 K/uL (1.2-3.4) Monocytes # (Auto) 0.74 K/uL (0.11-0.59) Eosinophils # (Auto) 0.05 K/uL (0-0.5) Basophils # (Auto) 0.02 K/uL (0-0.2) RDW Standard Deviation 49.7 fL (36.4-46.3) RDW Coefficient of Variation 16.5 % (11.5-14.5) Immature Granulocyte % (Auto) 1.9 % Immature Granulocyte # (Auto) 0.15 K/uL (0.00-0.02) Nucleated RBC Absolute Count (auto) 0.33 K/uL (0-0) Nucleated Red Blood Cells % 4.2 % Polychromasia 1+ Anisocytosis PRESENT Microcytosis PRESENT Prothrombin Time 11.5 SECONDS (9.0-12.0) Prothromb Time International Ratio 1.1 (0.9-1.1) Activated Partial Thromboplast Time 33.6 SECONDS (21.0-31.0) Partial Thromboplastin Ratio 1.3 Est Creatinine Clear Calc Drug Dose 40.0 ml/min Estimated GFR () 50.4 Estimated GFR (Non- 43.5 BUN/Creatinine Ratio 31.6 (10-20) Calcium Level 7.8 mg/dl (8.5-10.1) Total Bilirubin 1.1 mg/dl (0.2-1) Direct Bilirubin 0.2 mg/dl (0-0.2) Aspartate Amino Transf (AST/SGOT) 33 U/L (15-37) Alanine Aminotransferase (ALT/SGPT) 46 U/L (12-78) Alkaline Phosphatase 61 U/L (45-117) Total Creatine Kinase 1158 U/L (26-192) Creatine Kinase MB 3.3 ng/ml (0.5-3.6) Creatine Kinase MB Ratio 0.3 (0-3.0) Troponin I 0.023 ng/ml (0-0.045) Total Protein 5.5 gm/dl (6.4-8.2) Albumin 2.5 gm/dl (3.4-5.0) Lipase 125 U/L (73-393) Beta-Hydroxybutyric Acid 1.03 mg/dL (0.2-2.81) Bedside Hemoglobin 5.8 g/dl (12.0-16.0) Bedside Hematocrit 17 % (37-47) Bedside Sodium 134 mEq/L (135-144) Bedside Potassium 4.8 mEq/L (3.3-5.0) Bedside Chloride 102 mEq/L (101-112) Bedside Total CO2 23 mEq/l (24-31) Anion Gap 15.0 mmol/L (16-25) Bedside Blood Urea Nitrogen 33 mg/dl (7-18) Bedside Creatinine 1.1 mg/dl (0.6-1.3) Bedside Glucose (other) 369 mg/dl (70-99) Bedside Ionized Calcium (Kate) 1.16 mmol/l (1.12-1.32) Urine Color YELLOW Urine Appearance CLEAR (CLEAR) Urine pH 5.0 (4.5-7.5) Urine Specific [place] 1.040 (1.000-1.030) Urine Protein NEG (NEG) Urine Glucose (UA) 3+ (NEG) Urine Ketones NEG (NEG) Urine Occult Blood NEG (NEG) Urine Nitrite NEG (NEG) Urine Bilirubin NEG (NEG) Urine Urobilinogen NEG (NEG) Urine Leukocyte Esterase NEG (NEG) Laboratory results per my review. Medications Administered Medications (Trade) Dose Ordered Sig/Herbert Route Start Time Stop Time Status Last Admin Dose Admin Acetaminophen (Tylenol Tab) 1,000 mg NOW STAT PO 08/27/17 13:26 08/27/17 13:27 DC 08/27/17 13:31 1,000 MG Diphenhydramine HCl (Benadryl Cap) 25 mg NOW ONCE PO 08/27/17 13:30 08/27/17 13:31 DC 08/27/17 13:31 25 MG ECG Indication: toxicologic Rate (beats per minute): 61 Rhythm: other (atrially paced rhythm) Findings: other (no PVC's, no acute ST segment abnormalities) Comparison ECG Date: no prior available ED Course 1042: The patient was evaluated in room A9B. A complete history and physical examination were performed. 1200: I discussed the patient with Dr. James - [facility] folded cloth taper - he wants us to discuss the case with vascular surgery. 1228: I discussed the patient with Dr. Johns ([facility] general surgery) and Dr James - they will not accept the patient. 1235: I reevaluated the patient and she is resting. I discussed the test results with the patient and family, and told them that the patient will need to be transferred. The patient and family are agreeable with the plan. 1323: I discussed the patient with Dr. Kim - [facility] folded cloth taper - he will accept the patient in transfer. Medical Decision Differential diagnosis: Etiologies such as metabolic, infection, hypo/hyperglycemia, electrolyte abnormalities, cardiac sources, intracerebral event, toxicologic, neurologic, as well as others were entertained. Nursing notes reviewed. Additional history was obtained from the patient's family nurse. The patient is an 82-year-old female who presented to the emergency department for an evaluation of anemia. The patient was initially seen at our facility for severe DVT of her lower extremity. She was taking anticoagulation for atrial fibrillation. She also had developed pulmonary embolism. She was felt to require a higher level of care was transferred to [facility] for IVC filter placement. She states that she did not have a venipuncture in the right groin but had the IVC filter placed through the right side of her neck. The patient also complained of groin pain and back pain. Because of her severe anemia which have been progressive CT the abdomen and pelvis was obtained. She was found have a large retroperitoneal hematoma. I would wonder if she had a venipuncture initially this area to attempt an IVC filter placement but was unsuccessful. I discussed this possibility with the radiologist. I discussed his case with the on-call [facility] hospitalist. I also discussed his case with the on-call general surgeon. There were uncomfortable with the patient stating her facility for fear that she may continue to bleed since she does require anticoagulation. For this reason I discussed her case with the hospitalist group at [facility]. They've agreed to accept the patient transfer. The patient was treated with IV blood transfusion in the emergency department. She was reevaluated multiple times. She was also given pain medication. Medication Reconcilliation Current Medication List: was personally reviewed by me Blood Pressure Screening Patient's blood pressure: Elevated blood pressure Blood pressure disposition: Elevated BP felt to be situational Consults Time Called: 1155 Consulting Physician: Dr. Jacob Street folded cloth taper Returned Call: 1200 I discussed the patient with Dr. Jacob Street folded cloth taper - he wants us to discuss the case with vascular surgery. Additional Consults: Time Called: 1225 Consulted Physician: Dr. Johns ([facility] general surgery) and Dr. James Returned Call: 1228 Additional Comments: I discussed the patient with Dr. Johns ([facility]) and Dr James - they will not accept the patient. Time Called: 1320 Consulted Physician: Dr. Kim - [facility] folded cloth taper Returned Call: 1323 Additional Comments: I discussed the patient with Dr. Kim - [facility] folded cloth taper - he will accept the patient in transfer. Impression Primary Impression: Retroperitoneal hematoma Additional Impression: Anemia Critical Care I have personally spent greater than 60 minutes of critical care time in the direct management of this patient. This includes bedside care, interpretation of diagnostic studies, and testing, discussion with consultants, patient, and family members, and other required patient management activities. This 60 minutes is in excess of all separately billable procedures. Scribe Attestation The scribe's documentation has been prepared under my direction and personally reviewed by me in its entirety. I confirm that the note above accurately reflects all work, treatment, procedures, and medical decision making performed by me. Departure Information Dispostion Transfer Acute Care Facility (to [facility] Referrals No Doctor, Assigned (PCP) Patient Instructions My [facility] Problem Qualifiers Additional Impression: Anemia Anemia type: unspecified type Qualified Codes: D64.9 - Anemia, unspecified
[2017-08-27] MEDS ORDERED: OPTIRAY 320 IV PRN (11:00)
[2017-08-27 11:06] LABS: ISTAT CREATININE 1.1 mg/dl (0.6-1.3); ISTAT IONIZED CALCIUM 1.16 mmol/l (1.12-1.32); ISTAT POTASSIUM 4.8 mEq/L (3.3-5.0)
[2017-08-27 11:09] LABS: HEMATOCRIT 19.3 % (37-47); HEMOGLOBIN 6.4 g/dL (12.0-16.0); INR 1.1 (0.9-1.1); MEAN CELL VOLUME 92.3 fL (80-100); MEAN CORPUSCULAR HEMOGLOBIN 30.6 pg (25-34); MEAN CORPUSCULAR HGB CONC 33.2 g/dl (32-36); NUCLEATED RED BLOOD CELL ABS 0.33 K/uL (0-0); PLATELET COUNT 230 K/uL (130-400); PTT PATIENT 33.6 SECONDS (21.0-31.0); RED CELL DISTRIBUTION WIDTH CV 16.5 % (11.5-14.5); RED CELL DISTRIBUTION WIDTH SD 49.7 fL (36.4-46.3); WHITE BLOOD COUNT 7.84 K/uL (4.8-10.8)
--- NOTE | 2017-08-27 11:13 | DIAGNOSTIC IMAGING REPORT ---
CHEST ONE VIEW PORTABLE CLINICAL HISTORY: ABDOMINAL PAIN/GI pain COMPARISON STUDY: 08/19/2017 FINDINGS: Lungs are considered clear at this time. Small calcified granuloma right midlung. No focal infiltrate. Bipolar cardiac pacemaker. IMPRESSION: Chronic and postoperative change. No acute process. The above report was generated using voice recognition software. It may contain grammatical, syntax or spelling errors. Electronically signed by: Darius James M.D. 08/27/2017 11:12 AM Dictated Date/Time: 08/27/2017 11:11 AM
[2017-08-27 11:20] LABS: BASO % 0.3 %; BASO ABS # 0.02 K/uL (0-0.2); EOS % 0.6 %; EOS ABS # 0.05 K/uL (0-0.5); IG# 0.15 K/uL (0.00-0.02); LYMPH % 17.7 %; LYMPH ABS # 1.39 K/uL (1.2-3.4); MONO % 9.4 %; MONO ABS # 0.74 K/uL (0.11-0.59); NEUT % 70.1 %; NEUT ABS # 5.49 K/uL (1.4-6.5)
[2017-08-27 11:23] LABS: ALBUMIN 2.5 gm/dl (3.4-5.0); CALCIUM 7.8 mg/dl (8.5-10.1); CREATININE 1.18 mg/dl (0.60-1.20); POTASSIUM 4.7 mmol/L (3.5-5.1)
[2017-08-27] MEDS ORDERED: SODIENE PR (11:24)
[2017-08-27] MEDS ORDERED: ENOX80IN SQ (11:24)
[2017-08-27] MEDS ORDERED: MOML PO (11:24)
[2017-08-27] MEDS ORDERED: ACET-1256 PO (11:24)
[2017-08-27] MEDS ORDERED: SENN-65 PO (11:24)
[2017-08-27] MEDS ORDERED: BISA10SU7 PR (11:24)
[2017-08-27] MEDS ORDERED: GLGKIT SC (11:24)
[2017-08-27] MEDS ORDERED: DOCU-94 PO (11:24)
[2017-08-27] MEDS ORDERED: OXYC1TAB3 PO (11:24)
[2017-08-27] MEDS ORDERED: DEXT40GE20 PO (11:24)
[2017-08-27] MEDS ORDERED: POLY335019 PO (11:24)
[2017-08-27] MEDS ORDERED: DILT-115 PO (11:24)
[2017-08-27] MEDS ORDERED: NVLG SQ (11:24)
[2017-08-27 11:50] LABS: CKMB 3.3 ng/ml (0.5-3.6); TOTAL PROTEIN 5.5 gm/dl (6.4-8.2)
--- NOTE | 2017-08-27 12:20 | DIAGNOSTIC IMAGING REPORT ---
ABD/PELVIS IV CONTRAST ONLY CT DOSE: 539.57 mGy.cm HISTORY: Pain. Anemia. low HG, recent IVC filter TECHNIQUE: Multiaxial CT images of the abdomen and pelvis were performed following the use of intravenous contrast. A dose lowering technique was utilized adhering to the principles of ALARA. COMPARISON STUDY: 08/20/2017 FINDINGS: Stable basilar nodularity. Multiple parenchymal nodules are stable. Liver spleen and pancreas enhance uniformly. Nonobstructing lower pole right renal calcification. Several subcentimeter renal cortical cysts. No evidence for hydronephrosis. Adrenal glands are unremarkable. Interval placement of inferior vena caval filter inferior to the confluence of the renal veins. Interval development of a hematoma lateral right pelvis measuring 8 x 7 cm. Mild additional edematous change of the inferior right iliopsoas musculature. Hematoma extends to the anterior aspect of the right acetabulum, right hip, as well as anterior aspect of the right thigh. At its inferior aspect dimensions are 5 x 7 cm. These findings were not present on the prior study. There continues to be thrombus within the left femoral vein as well as inferior vena caval region. This is similar compared to the prior study. Slight nonspecific infiltrative changes subcutaneous fat anterior right thigh.. IMPRESSION: 1. Interval development of a rather prominent right lateral pelvic sidewall hematoma measuring 8 x 7 cm. 2. This extends inferiorly to the proximal right thigh were dimensions anterior to the right hip are 7 x 5 cm. 3. Interval placement of an inferior vena caval filter, appearing to be in good position. 4. Mild edematous change of the inferior right iliopsoas musculature. 5. Stable bilateral renal cysts with unchanging calcification lower pole right kidney. 6. Basilar pulmonary nodularity unchanged from the prior exam. 7. Thrombus within the left femoral vein and inferior vena cava unchanged from the prior study. The above report was generated using voice recognition software. It may contain grammatical, syntax or spelling errors. Electronically signed by: Darius James M.D. 08/27/2017 12:19 PM Dictated Date/Time: 08/27/2017 12:12 PM
[2017-08-27] MEDS ORDERED: ACETAMINOPHEN 500 MG TAB PO STA (13:26)
[2017-09-11] MEDS ORDERED: HYDR-5688 PO (10:34)
[2017-09-14] MEDS ORDERED: HYDR-5688 PO (16:24)
== END 2017-08-27 16:33 | disposition short-term general hospital (02) ==
LOC: EDBD 10:33 → C.EDA 10:34
DX: K66.1 Hemoperitoneum (principal); D64.9 Anemia, unspecified; I48.91 Unspecified atrial fibrillation; I50.9 Heart failure, unspecified; I11.0 Hypertensive heart disease with heart failure; E11.9 Type 2 diabetes mellitus without complications; Z86.718 Personal history of other venous thrombosis and embolism; Z86.711 Personal history of pulmonary embolism; Z79.01 Long term (current) use of anticoagulants; Z79.4 Long term (current) use of insulin

== ENCOUNTER 2017-09-11 09:45 | Inpatient (IN) | payer OTHER, MEDICARE ==
[2017-09-11] VITALS (13 sets, daily range): BP systolic 93–114; BP diastolic 43–68; PULSE 60–65; TEMP 36.5–37.2; O2SAT 96–100; BMI 27.1
[~2017-09-11] VITALS: Ht 165.1 cm; Wt 70.7 kg
[~2017-09-11 09:45] MED LIST changes: +ACET-1256 PO; -ATOR-24 PO; +BISA10SU7 PR; +DEXT40GE20 PO; +DILT-115 PO; -DILT360C23 PO; +DOCU-94 PO; +ENOX80IN SQ; +GLGKIT SC; -HEPARIN INJ; -LDDP5 TD; -LISI40TA PO; -LSX/40 PO; +MOML PO; -OMEG10007 PO; -OXYC-57 PO; +OXYC1TAB3 PO; +POLY335019 PO; -PROP20TA67 PO; +SENN-65 PO; +SODIENE PR
--- NOTE | 2017-09-11 10:22 | DIAGNOSTIC IMAGING REPORT ---
SINGLE VIEW CHEST CLINICAL HISTORY: GI bleeding. FINDINGS: An AP, portable, upright chest radiograph is compared to study dated 08/27/2017 and correlated with chest CT dated 08/19/2017. The examination is degraded by portable technique and patient rotation. A 2-lead cardiac pacemaker is unchanged in position and partially obscures the left upper chest. The heart is mildly enlarged and there is atherosclerotic calcification of the thoracic aorta. The pulmonary vasculature is noncongested. Chronic interstitial thickening and nodularity is similar to previous. No airspace consolidation or pleural effusion is identified. No pneumothorax is seen. The skeletal structures are osteopenic. The bony thorax is grossly intact. IMPRESSION: 1. Cardiomegaly and cardiac pacemaker. There is no radiographic evidence of congestive failure. 2. No airspace consolidation or pleural effusion is identified. Electronically signed by: Adolhp Moura M.D. 09/11/2017 10:20 AM Dictated Date/Time: 09/11/2017 10:19 AM
[2017-09-11] MEDS ORDERED: DEXT40GE20 PO (10:34)
[2017-09-11] MEDS ORDERED: MOML PO (10:34)
[2017-09-11] MEDS ORDERED: SODIENE PR (10:34)
[2017-09-11] MEDS ORDERED: INSDGIPEN SC (10:34)
[2017-09-11] MEDS ORDERED: POLY335019 PO (10:34)
[2017-09-11] MEDS ORDERED: NVLG SC (10:34)
[2017-09-11] MEDS ORDERED: NYST-19 TOP (10:34)
[2017-09-11] MEDS ORDERED: DOCU-94 PO (10:34)
[2017-09-11] MEDS ORDERED: LDDP5 TOP (10:34)
[2017-09-11] MEDS ORDERED: ENOX80IN SQ (10:34)
[2017-09-11] MEDS ORDERED: ACET-1256 PO (10:34)
[2017-09-11] MEDS ORDERED: BTP80 PO (10:34)
[2017-09-11] MEDS ORDERED: HYDR-5688 PO ×2 (10:34)
[2017-09-11] MEDS ORDERED: SENN-65 PO (10:34)
[2017-09-11] MEDS ORDERED: PROP20TA67 PO (10:34)
[2017-09-11] MEDS ORDERED: DLCS PO (10:34)
[2017-09-11] MEDS ORDERED: OXYC-609 PO ×2 (10:34→10:46)
[2017-09-11] MEDS ORDERED: ALPR0.25 PO ×2 (10:34→10:46)
--- NOTE | 2017-09-11 10:35 | EMERGENCY ROOM VISIT NOTE ---
History Report prepared by Alix: Jorge Comer Under the Supervision of: Dr. Fabio Camilo M.D. First contact with patient: 09:49 Chief Complaint: ABNORMAL LABS Stated Complaint: ABNORMAL LABS History of Present Illness The patient is a 82 year old white female with a past medical history of HTN, DM , CHF, A-fib, and dyslipidemia who presents to the ED with a cc of abnormal laboratory studies occurring today. Her Hemoglobin was found to be 5.8. Patient had blood work drawn while at [facility]. Currently at [facility] for rehab related to a extensive DVTs of the legs. Negative abdominal pain, bloody stool, or bloody vomit. Notes that she fell one week ago. Patient is on Lovenox. Nursing staff notes that the patient has a large bruise on her leg that appears to be growing in size. Patient notes that she has felt very depressed recently. She states that she is unhappy with her current state in [facility], and is upset about her sister's recent passing. EMR reviewed. Discharged September 04 from [facility] where she was transitioned to Lovenox. Had CT Mylogram which showed degenerative changes and lumbar spinal stenosis but no surgical intervention recommended. Hemoglobin at discharge was 9.1. Source of History: patient Onset: Today Symptom Intensity: Hemoglobin of 5.8 Quality: other (Abnormal laboratory studies) Associated Symptoms: No abdominal pain, No hematochezia Note: The patient denies bloody vomiting. Review of Systems See HPI for pertinent positives and negatives. A total of ten systems were reviewed and were otherwise negative. Past Medical & Surgical Medical Problems: (1) Anemia (2) Atrial fibrillation (3) CHF (congestive heart failure) (4) Diabetes mellitus, type 2 (5) Dyslipidemia (6) Essential tremor (7) Hematoma (8) Hypertension (9) Hypothyroidism (10) Osteoporosis Surgical Problems: (1) S/P IVC filter (2) Status post cardiac pacemaker procedure (3) Status post catheter ablation of atrial fibrillation (4) Status post hysterectomy (5) Status post right knee replacement (6) Status post tonsillectomy Family History COPD (chronic obstructive pulmonary disease) MOTHER Colon cancer BROTHER Congestive heart failure MOTHER Coronary artery disease MOTHER DVT BROTHER SISTER Lung cancer SISTER Social History Smoking Status: Never Smoker Alcohol Use: none Drug Use: none Housing Status: lives alone Occupation Status: retired Current/Historical Medications Scheduled Alprazolam (Xanax), 0.25 MG PO HS Diltiazem Hcl Ext Rel (Tiazac), 240 MG PO DAILY Enoxaparin (Lovenox), 70 MG SQ BID Insulin Aspart (Novolog), SC UD Insulin Glargine (Lantus Solostar), 30-40 UNITS SC DAILY Lidocaine (Lidocaine), 1 PATCH TOP QAM Nystatin (Topical) (Nyata), 1 APPLN TOP BID Propranolol (Inderal), 20 MG PO DAILY Senna/Docusate Sod (Senokot S), 1 TAB PO DAILY Sotalol HCl (Sotalol HCl), 120 MG PO DAILY Scheduled PRN Acetaminophen (Tylenol), 500 MG PO Q4 PRN for UNDECIDED Alprazolam (Xanax), 0.25 MG PO BID PRN for Anxiety Bisacodyl (Bisac-Evac), 10 MG PO DAILY PRN for Constipation Dextrose (Diabetic Use) (Glucose), 1 APPLN PO PRN PRN for HYPOGLYCEMIA Docusate Sodium (Colace), 100 MG PO BID PRN for Constipation Glucagon (Glucagon Emergency Kit), 1 DOSE INJ UD PRN for Hypoglycemia Protocol Hydrocodone/Acetaminophen 5MG/325MG (Blackwater 5MG/325MG), 1 TABLET PO Q4 PRN for Pain Hydrocodone/Acetaminophen 5MG/325MG ([place] 5MG/325MG), 2 TABLETS PO Q4 PRN for Pain Magnesium Hydroxide (Milk Of Magnesia), 30 ML PO DAILY PRN for Constipation Polyethylene Glycol 3350 (Miralax), 17 GM PO DAILY PRN for Constipation Sodium Phosphate/Biphosphate (Fleet Enema), 1 DOSE SD DAILY PRN for Constipation Allergies Coded Allergies: Levofloxacin (Verified Adverse Reaction, Mild, NAUSEA, 09/11/17) Propofol (Verified Adverse Reaction, Mild, NAUSEA, 08/27/17) Physical Exam Vital Signs Date Time Temp Pulse Resp B/P (MAP) Pulse Ox O2 Delivery O2 Flow Rate FiO2 09/11/17 13:20 36.6 65 18 95/43 97 0.0 09/11/17 13:00 36.7 60 18 94/51 96 0.0 09/11/17 12:59 60 09/11/17 12:55 96 Room Air 0.0 1/15/18 12:45 37.1 60 18 93/43 97 0.0 09/11/17 11:45 60 20 118/53 97 Room Air 09/11/17 10:32 61 16 117/55 99 Room Air 09/11/17 10:05 Room Air 09/11/17 10:01 68 09/11/17 09:54 36.9 78 16 107/72 100 Room Air Physical Exam GENERAL: Awake, alert, well-appearing, NAD. Tearful on exam. HENT: Normocephalic, atraumatic. EYES: Normal conjunctiva. Sclera non-icteric. NECK: Supple. No nuchal rigidity. FROM. RESPIRATORY: CTAB, no rhonchi, wheezing, crackles CARDIAC: RRR, no MRG ABDOMEN: Soft, NTND, BS+ RECTAL: No melenic stool. Heme negative. MSK: No chest wall TTP, no LE edema. Device in left chest. RLE in brace. Good DP pulse. NVI distally. Compartments are soft in the thigh, knee and lower leg. Scant bruising to the left knee. NEURO: GCS 15, CN 2-12 intact, moves all 4s on command SKIN: No rash or jaundice noted. Medical Decision & Procedures ER Provider Diagnostic Interpretation: Radiology results as stated below per my review and radiologist interpretation: SINGLE VIEW CHEST FINDINGS: An AP, portable, upright chest radiograph is compared to study dated 08/27/2017 and correlated with chest CT dated 08/19/2017. The examination is degraded by portable technique and patient rotation. A 2-lead cardiac pacemaker is unchanged in position and partially obscures the left upper chest. The heart is mildly enlarged and there is atherosclerotic calcification of the thoracic aorta. The pulmonary vasculature is noncongested. Chronic interstitial thickening and nodularity is similar to previous. No airspace consolidation or pleural effusion is identified. No pneumothorax is seen. The skeletal structures are osteopenic. The bony thorax is grossly intact. IMPRESSION: 1. Cardiomegaly and cardiac pacemaker. There is no radiographic evidence of congestive failure. 2. No airspace consolidation or pleural effusion is identified. Electronically signed by: Adolph Moura M.D. 09/11/2017 10:20 AM ABDOMEN AND PELVIS CT WITH IV CONTRAST FINDINGS: Multiple pulmonary nodules of the lung bases are again seen, largest of which measures 1.2 cm within the inferior segment lingula. Partially imaged lobulated nodule of the right middle lobe measures 1.0 cm. There are multiple tree-in-bud nodules throughout the bilateral lung bases. No pneumatosis or pneumoperitoneum identified. Imaged inferior cardiac chambers are mildly enlarged with coronary arterial disease. Pacer leads overlie the right heart chambers. Increased attenuation of the fundal gallbladder suggests adenomyomatosis. The spleen, liver, pancreas and right adrenal gland are unremarkable. There is nodular thickening of the left adrenal gland suggesting hyperplasia. Multifocal cortical thinning of the bilateral kidneys is noted with areas of parenchymal scarring. 9 mm nonobstructing calculus of the inferior pole right kidney. Low attenuating lesions of the bilateral kidneys suggests renal cysts, largest of which measures 2.8 cm on the left. The urinary bladder is unremarkable. Prior hysterectomy. Indeterminate area of increased attenuation is noted posterior to the central bladder 4 mm which is unchanged. Moderate atherosclerosis of the aorta. No bulky adenopathy identified. Infrarenal IVC filter is noted. Decreased size of the IVC thrombus is noted on image 192 series 3. Thrombus is again seen within the left common, superficial femoral and profunda femoris veins. Intramuscular hematoma of the right iliacus musculature extending into the iliopsoas is again seen measuring up to 7.2 x 5.5 cm in AP and transverse dimension, previously measuring 8.4 x 6.3 cm. Edema is again noted surrounding the hematoma and also extensively noted throughout the imaged right thigh. Intramuscular hematoma is also noted within the right rectus femoris musculature measuring up to 2.8 x 3.6 cm and possibly also involving the vastus intermedius musculature. This was not imaged on prior study. Mild nodularity of the lower anterior abdominal wall subcutaneous tissues suggest possible injection granulomas. Bones appear osteoporotic. Multilevel changes of the spine, most pronounced at L4-L5 and L5-S1. Levoscoliosis of the lumbar spine also noted. IMPRESSION: 1. Slightly decreased size of intramuscular hematoma involving the right iliacus and iliopsoas musculature demonstrating surrounding edema. Additionally, there is a moderate to large intramuscular hematoma of the right rectus femoris musculature and possibly also involving the vastus intermedius, only partially imaged. 2. Slightly decreased size of thrombus within the IVC with persistent thrombus noted within the left common femoral, superficial femoral and profunda femoris veins. Infrarenal IVC filter in place. 3. Additional findings as above. Electronically signed by: Yunior Duarte M.D. 09/11/2017 11:57 AM Laboratory Results 09/11/17 10:15 Red Blood Count 1.90, Mean Corpuscular Volume 97.4, Mean Corpuscular Hemoglobin 32.1, Mean Corpuscular Hemoglobin Concent 33.0, Mean Platelet Volume 8.6, Neutrophils (%) (Auto) 73.5, Lymphocytes (%) (Auto) 12.6, Monocytes (%) (Auto) 12.3, Eosinophils (%) (Auto) 0.3, Basophils (%) (Auto) 0.1, Neutrophils # (Auto ) 6.62, Lymphocytes # (Auto) 1.14, Monocytes # (Auto) 1.11, Eosinophils # (Auto ) 0.03, Basophils # (Auto) 0.01 09/11/17 10:15 Test 09/11/17 10:15 White Blood Count 9.02 K/uL (4.8-10.8) Red Blood Count 1.90 M/uL (4.2-5.4) Hemoglobin 6.1 g/dL (12.0-16.0) Hematocrit 18.5 % (37-47) Mean Corpuscular Volume 97.4 fL (80-100) Mean Corpuscular Hemoglobin 32.1 pg (25-34) Mean Corpuscular Hemoglobin Concent 33.0 g/dl (32-36) Platelet Count 272 K/uL (130-400) Mean Platelet Volume 8.6 fL (7.4-10.4) Neutrophils (%) (Auto) 73.5 % Lymphocytes (%) (Auto) 12.6 % Monocytes (%) (Auto) 12.3 % Eosinophils (%) (Auto) 0.3 % Basophils (%) (Auto) 0.1 % Neutrophils # (Auto) 6.62 K/uL (1.4-6.5) Lymphocytes # (Auto) 1.14 K/uL (1.2-3.4) Monocytes # (Auto) 1.11 K/uL (0.11-0.59) Eosinophils # (Auto) 0.03 K/uL (0-0.5) Basophils # (Auto) 0.01 K/uL (0-0.2) RDW Standard Deviation 70.1 fL (36.4-46.3) RDW Coefficient of Variation 20.5 % (11.5-14.5) Immature Granulocyte % (Auto) 1.2 % Immature Granulocyte # (Auto) 0.11 K/uL (0.00-0.02) Nucleated RBC Absolute Count (auto) 0.22 K/uL (0-0) Nucleated Red Blood Cells % 2.5 % Polychromasia 1+ Basophilic Stippling 1+ Prothrombin Time 11.2 SECONDS (9.0-12.0) Prothromb Time International Ratio 1.1 (0.9-1.1) Activated Partial Thromboplast Time 28.5 SECONDS (21.0-31.0) Partial Thromboplastin Ratio 1.1 Anion Gap 6.0 mmol/L (3-11) Est Creatinine Clear Calc Drug Dose 34.7 ml/min Estimated GFR () 44.9 Estimated GFR (Non- 38.7 BUN/Creatinine Ratio 33.3 (10-20) Calcium Level 7.3 mg/dl (8.5-10.1) Total Bilirubin 0.9 mg/dl (0.2-1) Direct Bilirubin 0.2 mg/dl (0-0.2) Aspartate Amino Transf (AST/SGOT) 15 U/L (15-37) Alanine Aminotransferase (ALT/SGPT) 22 U/L (12-78) Alkaline Phosphatase 64 U/L (45-117) Total Protein 5.1 gm/dl (6.4-8.2) Albumin 2.3 gm/dl (3.4-5.0) Lipase 139 U/L (73-393) Beta-Hydroxybutyric Acid 0.84 mg/dL (0.2-2.81) Laboratory results reviewed by me Medications Administered Medications (Trade) Dose Ordered Sig/Herbert Route Start Time Stop Time Status Last Admin Dose Admin Ondansetron HCl (Zofran Inj) 4 mg NOW STAT IV 09/11/17 11:19 09/11/17 11:20 DC 09/11/17 11:23 4 MG Acetaminophen/ Hydrocodone Bitart (Blackwater 5/325 Tab) 1 tab ONE STAT PO 09/11/17 11:19 09/11/17 11:20 DC 09/11/17 11:27 1 TAB Diphenhydramine HCl (Benadryl Inj) 50 mg STK-MED ONCE .ROUTE 09/11/17 12:30 09/11/17 12:31 DC 09/11/17 12:33 50 MG ECG Indication: other (low hemoglobin) Rate (beats per minute): 64 Rhythm: other (Atrial paced) Findings: other (Normal intervals. Normal axis. No other STS changes or TWI. ) ED Course 0955: The patient was evaluated in room B3B. A complete history and physical exam was performed. 1224: Upon reexamination, the patient was resting comfortably. I discussed the test results and treatment plan with her. We agreed on conservative care. We discussed DNR/DNI initiatives. The patient would like to be DNR/DNI. The patient will be evaluated for further management. Medical Decision The patient is a 82 year old white female with a past medical history of HTN, DM , CHF, A-fib, and dyslipidemia who presents to the ED with a cc of abnormal laboratory studies. Her hemoglobin was found to be 5.8. Differential diagnosis: Etiologies such as diverticulosis, AVM, coagulopathy, colitis, inflammatory bowel disease, malignancy, Marcela-Davis tear, esophagitis, peptic ulcer disease , variceal bleed, gastritis, epistaxis, fissure, hemorrhoids, as well as others were entertained. Patient was seen and evaluated the bedside. Patient does have a recent significant past medical history of blood clots in legs and lungs. Patient is been on Lovenox. Patient has had some difficulty and thus has been at [facility] for rehabilitation. Patient states that she did have blood work drawn today were hemoglobin was 5.8. Patient denies any hematemesis, bright red blood per rectum, melenic stool, or vaginal bleeding. Patient did state that she fell last Monday and has been placing the right lower extremity brace. Patient does have some scant bruising but compartments are soft and the bruising is not significant. I do not believe that she has been bleeding into the right lower extremity. Patient is tearful on exam and does state "she does not want to go on anymore." She discusses that she's recently been very sad about not being as independent as she formally once was. Patient otherwise is very well-appearing. Patient did have blood work completed along with a chest x -ray. Patient's rectal exam was negative for blood and there is no melenic stool. I did review prior discharge summary from [facility] in [place]. She was transferred there on August 27 and was discharged September 04. Patient had conservative management of this hematoma. They did transition her to the Lovenox. Patient did have a CT myelogram did show spinal stenosis but no urgent intervention was made at this time. Patient was consented for blood as her hemoglobin is 6.1. Patient platelet count and coags are normal. I did have a CT the abdomen pelvis to further evaluate the hematoma. Patient does show interval improvement in the pelvic hematoma however the patient still does have hematoma in the right lower extremity. Patient's compartments are soft and she does have a neurovascularly intact right lower extremity. I did discuss with the patient about whether not she would want to be transferred for possible higher level of care and possible additional intervention however she declined at this time. I did discuss DNR/DNI with her which she stated she would not like CPR and would not like to be intubated to supportive breathing. Given that she does not want higher level of care I did discuss with the hospitalist about a transfusion and monitoring her H&H as well as conservative measures here at this hospital. Patient was agreeable with this plan of care as well as the hospitalist. Patient was admitted to medicine. Medication Reconcilliation Current Medication List: was personally reviewed by me Blood Pressure Screening Patient's blood pressure: Normal blood pressure Blood pressure disposition: Did not require urgent referral Consults Time Called: 1226 Consulting Physician: [facility] Hospitalist Returned Call: 1232 Discussed the patient's case. The patient will be evaluated for further treatment and disposition. Impression Primary Impression: Anemia Additional Impressions: Pelvic hematoma Leg hematoma Critical Care I have personally spent greater than 55 minutes of critical care time in the direct management of this patient. This includes bedside care, interpretation of diagnostic studies, and testing, discussion with consultants, patient, and family members, and other required patient management activities. This 55 minutes is in excess of all separately billable procedures. Scribe Attestation The scribe's documentation has been prepared under my direction and personally reviewed by me in its entirety. I confirm that the note above accurately reflects all work, treatment, procedures, and medical decision making performed by me. Departure Information Dispostion Being Evaluated By Hospitalist [facility] Patient Instructions My [facility] Problem Qualifiers Primary Impression: Anemia Anemia type: unspecified type Qualified Codes: D64.9 - Anemia, unspecified Additional Impressions: Leg hematoma Encounter type: initial encounter Laterality: right Qualified Codes: S80.11XA - Contusion of right lower leg, initial encounter
[2017-09-11] MEDS ORDERED: GLGKIT INJ (10:46)
[2017-09-11] MEDS ORDERED: DILT120C68 PO (10:46)
[2017-09-11 10:54] LABS: INR 1.1 (0.9-1.1); PTT PATIENT 28.5 SECONDS (21.0-31.0)
[2017-09-11 11:03] LABS: HEMATOCRIT 18.5 % (37-47); HEMOGLOBIN 6.1 g/dL (12.0-16.0); MEAN CELL VOLUME 97.4 fL (80-100); MEAN CORPUSCULAR HEMOGLOBIN 32.1 pg (25-34); MEAN PLATELET VOLUME 8.6 fL (7.4-10.4); NUCLEATED RED BLOOD CELL ABS 0.22 K/uL (0-0); PLATELET COUNT 272 K/uL (130-400); RED CELL DISTRIBUTION WIDTH CV 20.5 % (11.5-14.5); RED CELL DISTRIBUTION WIDTH SD 70.1 fL (36.4-46.3); WHITE BLOOD COUNT 9.02 K/uL (4.8-10.8)
[2017-09-11 11:05] LABS: ALBUMIN 2.3 gm/dl (3.4-5.0); CALCIUM 7.3 mg/dl (8.5-10.1); CREATININE 1.3 mg/dl (0.60-1.20); POTASSIUM 4.2 mmol/L (3.5-5.1)
[2017-09-11 11:08] LABS: TOTAL PROTEIN 5.1 gm/dl (6.4-8.2)
[2017-09-11] MEDS ORDERED: ACETAMINOPHEN 325 MG TAB PO STA (11:11)
[2017-09-11 11:13] LABS: BASO % 0.1 %; BASO ABS # 0.01 K/uL (0-0.2); EOS % 0.3 %; EOS ABS # 0.03 K/uL (0-0.5); IG# 0.11 K/uL (0.00-0.02); LYMPH % 12.6 %; LYMPH ABS # 1.14 K/uL (1.2-3.4); MONO % 12.3 %; MONO ABS # 1.11 K/uL (0.11-0.59); NEUT % 73.5 %; NEUT ABS # 6.62 K/uL (1.4-6.5)
[2017-09-11] MEDS ORDERED: OPTIRAY 320 IV PRN (11:15)
[2017-09-11] MEDS ORDERED: HYDROCODONE/ACETAMOPHEN 5/325MG TAB PO STA (11:19)
[2017-09-11] MEDS ORDERED: ONDANSETRON INJ 2 MG/ML 2 ML VIAL IV STA (11:19)
--- NOTE | 2017-09-11 11:58 | DIAGNOSTIC IMAGING REPORT ---
ABDOMEN AND PELVIS CT WITH IV CONTRAST CT DOSE: 445.08 mGy.cm HISTORY: Follow-up study in a patient with right iliac is an iliopsoas hematoma. did have prior hematoma ?2/2 IVC placement, low hgb TECHNIQUE: Multiaxial CT images of the abdomen and pelvis were performed following the use of intravenous contrast. A dose lowering technique was utilized adhering to the principles of ALARA. COMPARISON STUDY: CT abdomen and pelvis 08/27/2017. FINDINGS: Multiple pulmonary nodules of the lung bases are again seen, largest of which measures 1.2 cm within the inferior segment lingula. Partially imaged lobulated nodule of the right middle lobe measures 1.0 cm. There are multiple tree-in-bud nodules throughout the bilateral lung bases. No pneumatosis or pneumoperitoneum identified. Imaged inferior cardiac chambers are mildly enlarged with coronary arterial disease. Pacer leads overlie the right heart chambers. Increased attenuation of the fundal gallbladder suggests adenomyomatosis. The spleen, liver, pancreas and right adrenal gland are unremarkable. There is nodular thickening of the left adrenal gland suggesting hyperplasia. Multifocal cortical thinning of the bilateral kidneys is noted with areas of parenchymal scarring. 9 mm nonobstructing calculus of the inferior pole right kidney. Low attenuating lesions of the bilateral kidneys suggests renal cysts, largest of which measures 2.8 cm on the left. The urinary bladder is unremarkable. Prior hysterectomy. Indeterminate area of increased attenuation is noted posterior to the central bladder 4 mm which is unchanged. Moderate atherosclerosis of the aorta. No bulky adenopathy identified. Infrarenal IVC filter is noted. Decreased size of the IVC thrombus is noted on image 192 series 3. Thrombus is again seen within the left common, superficial femoral and profunda femoris veins. Intramuscular hematoma of the right iliacus musculature extending into the iliopsoas is again seen measuring up to 7.2 x 5.5 cm in AP and transverse dimension, previously measuring 8.4 x 6.3 cm. Edema is again noted surrounding the hematoma and also extensively noted throughout the imaged right thigh. Intramuscular hematoma is also noted within the right rectus femoris musculature measuring up to 2.8 x 3.6 cm and possibly also involving the vastus intermedius musculature. This was not imaged on prior study. Mild nodularity of the lower anterior abdominal wall subcutaneous tissues suggest possible injection granulomas. Bones appear osteoporotic. Multilevel changes of the spine, most pronounced at L4-L5 and L5-S1. Levoscoliosis of the lumbar spine also noted. IMPRESSION: 1. Slightly decreased size of intramuscular hematoma involving the right iliacus and iliopsoas musculature demonstrating surrounding edema. Additionally, there is a moderate to large intramuscular hematoma of the right rectus femoris musculature and possibly also involving the vastus intermedius, only partially imaged. 2. Slightly decreased size of thrombus within the IVC with persistent thrombus noted within the left common femoral, superficial femoral and profunda femoris veins. Infrarenal IVC filter in place. 3. Additional findings as above. Electronically signed by: Yunior Duarte M.D. 09/11/2017 11:57 AM Dictated Date/Time: 09/11/2017 11:45 AM
[2017-09-11] MEDS ORDERED: DiphenhydrAMINE HCL 50 MG/ML VIAL ONE (12:30)
[2017-09-11] MEDS ORDERED: NITROGLYCERIN 0.4 MG SL PER TAB CHARGE SL PRN (13:15)
[2017-09-11] MEDS ORDERED: ONDANSETRON INJ 2 MG/ML 2 ML VIAL IV PRN (13:15)
[2017-09-11] MEDS ORDERED: DiphenhydrAMINE HCL 50 MG/ML VIAL IV STA (13:23)
[2017-09-11] MEDS ORDERED: MAGNESIUM HYDROXIDE SUSP 30 ML UDC PO PRN (14:00)
[2017-09-11] MEDS ORDERED: HYDROCODONE/ACETAMOPHEN 5/325MG TAB PO PRN (14:00)
[2017-09-11] MEDS ORDERED: ALPRAZOLAM 0.25 MG TAB PO PRN (14:00)
[2017-09-11] MEDS ORDERED: POLYETHYLENE (MIRALAX) 17 GM PACK PO PRN (14:00)
[2017-09-11] MEDS ORDERED: PHARMACY GLYCEMIC MGMT CONSULT SCH (14:11)
[2017-09-11] MEDS ORDERED: GLUCAGON FOR INJ 1 MG VIAL SQ PRN (14:15)
[2017-09-11] MEDS ORDERED: GLUCOSE 10 TABS/TUBE PO PRN (14:15)
[2017-09-11] MEDS ORDERED: GLUCOSE 40% GEL 15 GM TUBE PO PRN (14:15)
[2017-09-11] MEDS ORDERED: DEXTROSE 50% 50 ML SYR IV PRN (14:15)
--- NOTE | 2017-09-11 14:53 | Pharmacy Progress Note ---
Glycemic Control Intl Consult Date of Service Sep 11, 2017. Scope Glycemic Pharmacist consulted for glycemic control and to write orders per [facility] inpatient glycemic control protocol Objective Weight (Kilograms): 73.900 Accuchecks BSG (last 24hrs): Test 09/11/17 10:15 Random Glucose 311 mg/dl (70-99) Laboratory Data (last 24hrs) Test 09/11/17 10:15 Anion Gap 6.0 mmol/L BUN/Creatinine Ratio 33.3 Blood Urea Nitrogen 43 mg/dl Creatinine 1.30 mg/dl Potassium Level 4.2 mmol/L Sodium Level 130 mmol/L White Blood Count 9.02 K/uL Red Blood Count 1.90 M/uL Hemoglobin 6.1 g/dL Hematocrit 18.5 % Mean Corpuscular Volume 97.4 fL Mean Corpuscular Hemoglobin 32.1 pg Mean Corpuscular Hemoglobin Concent 33.0 g/dl Platelet Count 272 K/uL Mean Platelet Volume 8.6 fL Neutrophils (%) (Auto) 73.5 % Lymphocytes (%) (Auto) 12.6 % Monocytes (%) (Auto) 12.3 % Eosinophils (%) (Auto) 0.3 % Basophils (%) (Auto) 0.1 % Neutrophils # (Auto) 6.62 K/uL Lymphocytes # (Auto) 1.14 K/uL Monocytes # (Auto) 1.11 K/uL Eosinophils # (Auto) 0.03 K/uL Basophils # (Auto) 0.01 K/uL HbA1c 11.3% on 08/22/17 Recent Pertinent Medications Outpatient Anti-diabetic Regimen: * Lantus 30-40 units SQ daily * NovoLog per scale - 0-12 units based on BSG Assessment & Plan ASSESSMENT: * 82yo diabetic female with poor outpatient control per recent A1c of 11.3% in 07/2017. * Goal A1c based on age/co-morbidities is ~ 8-9% * Pt admitted with moderate-severe hyperglycemia per ED labs/PRP. GLU = 311 mg/ dl * Pt ordered weight/stress of 2 insulin dosing on admission per provider * Agree with these orders. This is similar to outpatient dosing - although outpatient compliance is questionable based on elevated A1c * Will give the full 24hr dose now and then start split BID dosing tomorrow morning * Pharmacy will continue to monitor and adjust insulin doses based on BSG trends. PLAN FOR INPATIENT GLYCEMIC CONTROL: * Basal insulin * Lantus 30 units SQ x 1 dose NOW, then, Lantus 15 units SQ BID * Bolus insulin * NovoLog per scale ACHS or Q6hrs while NPO. Additional checks/coverage tonight at 0000 & 0400 for sustained hyperglycemia. * Goal Range: Low 120 mg/dL - High 160 mg/dL * Correction Factor: 30 mg/dL/unit * Nutritional / Prandial insulin per carb ratio of 1 unit per 11 grams CHO consumed * Please note that the plan above was derived based on current level of insulin resistance and hospital stress. These recommendations are appropriate for inpatient admission only. Plan of care upon discharge will need to be reassessed to avoid potential outpatient hypo/hyperglycemia. Thank you.
--- NOTE | 2017-09-11 14:58 | History and Physical ---
History & Physical Date & Time of Service: Sep 11, 2017 at 13:58 Chief Complaint: Abnormal Labs Primary Care Physician: Layton Mejia History of Present Illness Source: patient, family, clinic records, hospital records Pt is 82 y/o F with PMH HTN, a-fib s/p ablations, pacemaker, DM II presented to ER with c/o anemia. Pt with recent hx DVT LLE, PE and hospitalized in this facility on 08/19/17- was on coumadin and heparin. Hx IVC filter placed 08/23/17. She was in [facility] 08/27/17-09/04/17 for anemia and R pelvic and R LE intramuscular hematoma. Pt's hgb remained stable after initial transfusion. Conservative approach with observation. Pt developed RLE weakness and loss sensation, seen by ortho and had myelogram CT and recommend observation. Pt was sent to [facility] and on Lovenox. Hx fall to right knee last week and seen by ortho and given brace to help with ambulation. Pt states still with R knee pain and R groin pain using norco for discomfort with moderate relief. States R knee with slightly less edema than last week. Reports left leg less swollen than it was previous. Denies extremity erythema. Pt reports past couple of days with dizziness, weakness and hasn't been able to do therapy at [facility]. Reports vomited once 4 days ago from the norco, no further vomiting. Denies fever/chills, diaphoresis, hematochezia, melena, hematemesis, diarrhea, constipation, CUEVAS, syncope, vision changes, neck pain, CP, SOB, orthopnea, palpitations, cough, sore throat, choking, otalgia, rhinorrhea, urinary symptoms. In ER heme negative stool. Afebrile, P: 78, R: 16, BP:117/55, 93/43. Today Hgb: 6.1 (was 9.1 on 09/03/17). Na:130, gluc: 311. Cr: 1.3 (was 0.9 on 09/01/17). EKG: atrial paced, rate 64, CXR: no consolidation/pleural effusion. CT ABD/PELVIS: Slightly decreased size of intramuscular hematoma involving the right iliacus and iliopsoas musculature demonstrating surrounding edema. moderate to large intramuscular hematoma of the right rectus femoris musculature and possibly also involving the vastus intermedius. Slightly decreased size of thrombus within the IVC with persistent thrombus noted within the left common femoral, superficial femoral and profunda femoris veins. Infrarenal IVC filter in place. Pt type and cross and 2 units PRBC transfusing Past Medical/Surgical History Medical Problems: (1) Atrial fibrillation Status: Chronic (2) CHF (congestive heart failure) Status: Chronic (3) Diabetes mellitus, type 2 Status: Chronic (4) Dyslipidemia Status: Chronic (5) Essential tremor Status: Chronic (6) Hypertension Status: Chronic (7) Hypothyroidism Status: Chronic (8) Osteoporosis Status: Chronic Surgical Problems: (1) S/P IVC filter Permanent Comment: 08/23/17 Status: Resolved (2) Status post cardiac pacemaker procedure Status: Chronic (3) Status post catheter ablation of atrial fibrillation Status: Chronic (4) Status post hysterectomy Permanent Comment: with BSO; fibroid Status: Chronic (5) Status post right knee replacement Status: Chronic (6) Status post tonsillectomy Status: Chronic Family History COPD (chronic obstructive pulmonary disease) MOTHER Colon cancer BROTHER Congestive heart failure MOTHER Coronary artery disease MOTHER DVT BROTHER SISTER Lung cancer SISTER Social History Smoking Status: Never Smoker Smokeless Tobacco Use: No Alcohol Use: none Drug Use: none Occupational Status: retired Allergies Coded Allergies: Levofloxacin (Verified Adverse Reaction, Mild, NAUSEA, 09/11/17) Propofol (Verified Adverse Reaction, Mild, NAUSEA, 08/27/17) Home Medications Scheduled Alprazolam (Xanax), 0.25 MG PO HS Diltiazem Hcl Ext Rel (Tiazac), 240 MG PO DAILY Enoxaparin (Lovenox), 70 MG SQ BID Insulin Aspart (Novolog), SC UD Insulin Glargine (Lantus Solostar), 30-40 UNITS SC DAILY Lidocaine (Lidocaine), 1 PATCH TOP QAM Nystatin (Topical) (Nyata), 1 APPLN TOP BID Propranolol (Inderal), 20 MG PO DAILY Senna/Docusate Sod (Senokot S), 1 TAB PO DAILY Sotalol HCl (Sotalol HCl), 120 MG PO DAILY Scheduled PRN Acetaminophen (Tylenol), 500 MG PO Q4 PRN for UNDECIDED Alprazolam (Xanax), 0.25 MG PO BID PRN for Anxiety Bisacodyl (Bisac-Evac), 10 MG PO DAILY PRN for Constipation Dextrose (Diabetic Use) (Glucose), 1 APPLN PO PRN PRN for HYPOGLYCEMIA Docusate Sodium (Colace), 100 MG PO BID PRN for Constipation Glucagon (Glucagon Emergency Kit), 1 DOSE INJ UD PRN for Hypoglycemia Protocol Hydrocodone/Acetaminophen 5MG/325MG ([place] 5MG/325MG), 1 TABLET PO Q4 PRN for Pain Hydrocodone/Acetaminophen 5MG/325MG ([place] 5MG/325MG), 2 TABLETS PO Q4 PRN for Pain Magnesium Hydroxide (Milk Of Magnesia), 30 ML PO DAILY PRN for Constipation Polyethylene Glycol 3350 (Miralax), 17 GM PO DAILY PRN for Constipation Sodium Phosphate/Biphosphate (Fleet Enema), 1 DOSE UT DAILY PRN for Constipation Review of Systems Constitutional: + weakness, No fever, No chills, No sweats Eyes: No worsening of vision, No eye pain, No redness, No discharge ENT: No hearing loss, No unusual epistaxis, No nasal symptoms, No sore throat, No trouble swallowing Respiratory: No cough, No sputum, No wheezing, No hemoptysis Cardiovascular: No chest pain, No orthopnea, No PND Abdomen: + problem reported (see HPI) Musculoskeletal: + problem reported (see HPI) Genitourinary - Female: No dysuria, No urinary frequency, No urinary urgency, No urinary incontinence, No urinary retention, No hematuria Neurologic: + problem reported (see HPI), No memory loss Endocrine: No excessive thirst, No excessive urination Integumentary: + rash (abdomen - nystatin being applied with some improvement) Physical Exam Vital Signs Date Time Temp Pulse Resp B/P (MAP) Pulse Ox O2 Delivery O2 Flow Rate FiO2 09/11/17 13:45 36.5 60 18 104/53 97 0.0 09/11/17 13:20 36.6 65 18 95/43 97 0.0 09/11/17 13:00 36.7 60 18 94/51 96 0.0 09/11/17 12:59 60 09/11/17 12:55 96 Room Air 0.0 09/11/17 12:45 37.1 60 18 93/43 97 0.0 09/11/17 11:45 60 20 118/53 97 Room Air 1/15/18 10:32 61 16 117/55 99 Room Air 09/11/17 10:05 Room Air 09/11/17 10:01 68 09/11/17 09:54 36.9 78 16 107/72 100 Room Air General Appearance: WD/WN, no apparent distress, + pertinent finding (pale) Head: normocephalic, atraumatic Eyes: PERRL, EOMI, sclerae normal, + pertinent finding (pale conjunctiva) ENT: hearing grossly normal, pharynx normal, + pertinent finding (mucous membranes moist) Neck: supple, no JVD, trachea midline Respiratory/Chest: chest non-tender, lungs clear, normal breath sounds, no respiratory distress, no accessory muscle use Cardiovascular: regular rate, rhythm, no murmur, normal peripheral pulses Abdomen/GI: normal bowel sounds, soft, + pertinent finding (tender to palpation lower abdomen without rebound or guarding) Back: no CVA tenderness Extremities/Musculoskelatal: + pertinent finding (arms without edema, erythema , tenderness to palpation and ROM intact. LLE mild edema, soft, non-tender, ROM intact. R knee +edema and tenderness to palpation with ecchymosis, limited flexion of knee. R leg soft, sensation to R LE intact. distal pulses intact, brisk capillary refill) Neurologic/Psych: alert, normal mood/affect, oriented x 3 Skin: warm/dry, + pertinent finding (pale, abdominal fold erythema) Diagnostics Laboratory Results Results Past 24 Hours Test 09/11/17 10:15 Range/Units White Blood Count 9.02 4.8-10.8 K/uL Red Blood Count 1.90 4.2-5.4 M/uL Hemoglobin 6.1 12.0-16.0 g/dL Hematocrit 18.5 37-47 % Mean Corpuscular Volume 97.4 80-100 fL Mean Corpuscular Hemoglobin 32.1 25-34 pg Mean Corpuscular Hemoglobin Concent 33.0 32-36 g/dl Platelet Count 272 130-400 K/uL Mean Platelet Volume 8.6 7.4-10.4 fL Neutrophils (%) (Auto) 73.5 % Lymphocytes (%) (Auto) 12.6 % Monocytes (%) (Auto) 12.3 % Eosinophils (%) (Auto) 0.3 % Basophils (%) (Auto) 0.1 % Neutrophils # (Auto) 6.62 1.4-6.5 K/uL Lymphocytes # (Auto) 1.14 1.2-3.4 K/uL Monocytes # (Auto) 1.11 0.11-0.59 K/uL Eosinophils # (Auto) 0.03 0-0.5 K/uL Basophils # (Auto) 0.01 0-0.2 K/uL RDW Standard Deviation 70.1 36.4-46.3 fL RDW Coefficient of Variation 20.5 11.5-14.5 % Immature Granulocyte % (Auto) 1.2 % Immature Granulocyte # (Auto) 0.11 0.00-0.02 K/uL Nucleated RBC Absolute Count (auto) 0.22 0-0 K/uL Nucleated Red Blood Cells % 2.5 % Polychromasia 1+ Basophilic Stippling 1+ Prothrombin Time 11.2 9.0-12.0 SECONDS Prothromb Time International Ratio 1.1 0.9-1.1 Activated Partial Thromboplast Time 28.5 21.0-31.0 SECONDS Partial Thromboplastin Ratio 1.1 Sodium Level 130 136-145 mmol/L Potassium Level 4.2 3.5-5.1 mmol/L Chloride Level 98 98-107 mmol/L Carbon Dioxide Level 26 21-32 mmol/L Anion Gap 6.0 3-11 mmol/L Blood Urea Nitrogen 43 7-18 mg/dl Creatinine 1.30 0.60-1.20 mg/dl Est Creatinine Clear Calc Drug Dose 34.7 ml/min Estimated GFR () 44.9 Estimated GFR (Non- 38.7 BUN/Creatinine Ratio 33.3 10-20 Random Glucose 311 70-99 mg/dl Calcium Level 7.3 8.5-10.1 mg/dl Total Bilirubin 0.9 0.2-1 mg/dl Direct Bilirubin 0.2 0-0.2 mg/dl Aspartate Amino Transf (AST/SGOT) 15 15-37 U/L Alanine Aminotransferase (ALT/SGPT) 22 12-78 U/L Alkaline Phosphatase 64 45-117 U/L Total Protein 5.1 6.4-8.2 gm/dl Albumin 2.3 3.4-5.0 gm/dl Lipase 139 73-393 U/L Beta-Hydroxybutyric Acid 0.84 0.2-2.81 mg/dL Diagnostic Radiology ABD/PELVIS CT: IMPRESSION: 1. Slightly decreased size of intramuscular hematoma involving the right iliacus and iliopsoas musculature demonstrating surrounding edema. Additionally, there is a moderate to large intramuscular hematoma of the right rectus femoris musculature and possibly also involving the vastus intermedius, only partially imaged. 2. Slightly decreased size of thrombus within the IVC with persistent thrombus noted within the left common femoral, superficial femoral and profunda femoris veins. Infrarenal IVC filter in place. 3. Additional findings as above. CXR: IMPRESSION: 1. Cardiomegaly and cardiac pacemaker. There is no radiographic evidence of congestive failure. 2. No airspace consolidation or pleural effusion is identified. EKG EKG: read by commercial energy rater: Atrial-paced rhythm Abnormal ECG When compared with ECG of 27-AUG-2017 11:15, No significant change was found Confirmed by LJ GARCIA ([id number]) on 09/11/2017 11:44:35 AM Impression Assessment and Plan ANEMIA Pt with recent LLE DVT and PE and was on heparin and coumadin, had IVC filter placed. developed hematoma to R pelvis extending to R thigh with anemia and received transfusion and sent to [facility]. Conservative treatment. Pt d/c on lovenox and at [facility] for rehab. Pt developed weakness, dizziness past couple of days and today Hgb: 6.1 in ER. Pt receiving 2 U PRBC's. BP's 90's-118 systolic. heme negative stool in ER. ?anemia from pt with increased bleeding to pelvis or R leg. -2units PRBC's -repeat H&H -continue to monitor HEMATOMA R PELVIS AND R THIGH Pt developed R leg weakness and decreased sensation s/p hematoma. Ortho had recommended conservative treatment at this time. CT ABD/PELVIS TODAY: IMPRESSION: 1. Slightly decreased size of intramuscular hematoma involving the right iliacus and iliopsoas musculature demonstrating surrounding edema. Additionally, there is a moderate to large intramuscular hematoma of the right rectus femoris musculature and possibly also involving the vastus intermedius, only partially imaged. 2. Slightly decreased size of thrombus within the IVC with persistent thrombus noted within the left common femoral, superficial femoral and profunda femoris veins. Infrarenal IVC filter in place. -will continue [place] prn pain -hold lovenox for now -obtain U/S RLE LLE DVT and PE hx DVT and PE dx 08/19/17, pt on Lovenox currently. Denies increased pain. Denies SOB, CP. has ivc filter -hold lovenox at this time -heme/onc consult for assistance with anticoagulation options RIGHT KNEE PAIN/CONTUSION Pt reports fall last week onto R knee with edema and ecchymosis, seen by ortho. Has knee brace to use -continue lidocaine patch A-FIB s/p ablation. Controlled currently -continue Diltazem and sotalol with BP parameters HYPONATREMIA Corrected Na: 133 -IVF -continue to monitor DANIELLE Cr: 1.3, was 0.9 on 09/01/17 -IVF -follow renal functions -avoid nephrotoxic agents when possible INSULIN DEPENDENT DM II -sliding scale and lantus -glycemic consult ANXIETY pt reports upset that she is hassling her family with her recent medical issues , but reports anxiety stable at this time -continue alprazolam ESSENTIAL TREMOR on propranolol. DVT PROPHYLAXIS -EBONI, holding anticoagulation at this time with pt's anemia DISPOSITION -admit Tele -Full Code as per discussion with pt. pt reports wants resuscitation attempted but does not want prolonged extraordinary measures if poor prognosis -Is to follow with Dr Calloway for care, originally had appt today Pt was seen with Dr Dyson . See addendum Agree with above H and P. briefly 82F with hx of DVT/PE, s/p ivc filter, Hematomas of right lower extremity and currently at rehab and on Lovenox for dvt /pe was brought to Er for symptoms of weakness and dizziness and labs done in rehab found to have profound anemia. Complains of pain in right leg but now better with narco. Denies chest pain or sob. Denies any blood in stool. No bloody vomiting. Fell last week on her right knee and was seen by ortho and x ray was unremarkable as per patient and family. But says her right leg is more swollen now.Afebrile. p/e Ge patient is alert and oriented. Not in distress Cvs s1 and s2 heard no murmurs Rs cta b./l no wheezing or crackles. 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 thigh and knee slightly swollen a/p Anemia On Lovenox for dvt/pe Hemoccult negative HAs hematoma in right pelvis and thigh will f/u ultrasound for any increase in hematoma to transfuse two units today f/u labs hold Lovenox Right thigh hematoma weakness of rt leg since developed hematoma seen by ortho will consult ortho for further recommendations hx of recent dvt/pr s/p ivc filter which has thrombus holding Lovenox consult heme/onco for any further recommendations Level of Care Telemetry Advanced Directives Existing Living Will: Yes Existing Power of Rv Detailer: Yes Resuscitation Status FULL RESUSCITATION VTE Prophylaxis VTE Risk Assessment Done? Y/N: Yes Risk Level: Moderate Given or contraindicated: T.E.D. Stockings Additional Copies To Tiara Calloway M.D.
[2017-09-11] MEDS ORDERED: INSULIN GLARGINE SOLOSTAR 100 UNITS/ML 3 ML PEN SC SCH (15:00)
[2017-09-11] MEDS ORDERED: SODIUM CHLORIDE 0.9% 1000ML 1,000 ML IV SCH (16:45)
--- NOTE | 2017-09-11 16:49 | DIAGNOSTIC IMAGING REPORT ---
RIGHT INGUINAL/FEMORAL ULTRASOUND CLINICAL HISTORY: right thigh and right knee hematoma? COMPARISON STUDY: None. FINDINGS: Within the right inguinal region there is a 7.7 x 3.0 x 3.2 cm heterogeneous fluid collection within the deep soft tissues, likely intramuscular. No associated color flow. Therefore, this favors a hematoma. In addition, within the right anteromedial mid thigh there is a similar-appearing 23.6 x 5.0 x 6.3 cm heterogeneous collection within the deep soft tissues abutting the femur. This likely represents an intramuscular hematoma. IMPRESSION: Similar appearing complex fluid collections within the right inguinal region and right thigh as described above which favor intramuscular hematomas. Abscesses are considered less likely but could also have a similar appearance in the appropriate clinical setting. Electronically signed by: Javid Gil M.D. 09/11/2017 4:47 PM Dictated Date/Time: 09/11/2017 4:44 PM
[2017-09-11] MEDS: INSULIN ASPART 100 UNITS/ML 3 ML PEN SC SCH ×2 (17:46→20:59)
[2017-09-11 20:42] LABS: HEMATOCRIT 27.1 % (37-47); HEMOGLOBIN 9.4 g/dL (12.0-16.0)
[2017-09-11] MEDS: ALPRAZOLAM 0.25 MG TAB PO SCH (20:49)
[2017-09-11] MEDS: NYSTATIN POWDER 15GM BTL EXT SCH (20:49)
[2017-09-12 03:37] VITALS: BP 114/64; PULSE 65; TEMP 36.9; O2SAT 96
[2017-09-12] MEDS: INSULIN ASPART 100 UNITS/ML 3 ML PEN SC SCH ×6 (04:00→19:42)
[2017-09-12 06:36] LABS: HEMOGLOBIN 8.9 g/dL (12.0-16.0); MEAN CELL VOLUME 91.5 fL (80-100); MEAN CORPUSCULAR HEMOGLOBIN 31.3 pg (25-34); MEAN CORPUSCULAR HGB CONC 34.2 g/dl (32-36); NUCLEATED RED BLOOD CELL ABS 0.22 K/uL (0-0); PLATELET COUNT 181 K/uL (130-400); WHITE BLOOD COUNT 7.29 K/uL (4.8-10.8)
[2017-09-12 07:03] LABS: CALCIUM 7.2 mg/dl (8.5-10.1); CREATININE 0.94 mg/dl (0.60-1.20); POTASSIUM 4.2 mmol/L (3.5-5.1)
[2017-09-12 07:18] VITALS: BP 106/66; PULSE 63; TEMP 36.9; O2SAT 97
--- NOTE | 2017-09-12 08:30 | Pharmacy Progress Note ---
Pharmacy Glycemic Short Note 2 Date of Service Sep 12, 2017. OUTPATIENT ANTIDIABETIC REGIMEN: * Lantus 30-40 units SQ daily * NovoLog per scale - 0-12 units based on BSG ASSESSMENT: * 82yo diabetic female with poor outpatient control per recent A1c of 11.3% in 07/2017. * Goal A1c based on age/co-morbidities is ~ 8-9% * Pt admitted with moderate-severe hyperglycemia per ED labs/PRP. GLU = 311 mg/ dl * Once pt admitted to the floor, first POC BSG was 168 mg/dL * Pt said she took Lantus 30 units X 1 [employer] * Further basal insulin held last night and BSGs trended within goal range * Fasting BSG this AM 87 mg/dL * I am suspecting noncompliance at this point given sensitivity to current insulin regimen and will continue to utilize wt based dosing versus home regimen moving forward PLAN FOR INPATIENT GLYCEMIC CONTROL: * Basal insulin * Lantus 12 units SQ x 1 given this AM + 10 units this afternoon * Likely will settle on 20 units daily tomorrow? Will know more in 24 hours * Bolus insulin * NovoLog per scale ACHS or Q6hrs while NPO * Goal Range: Low 120 mg/dL - High 160 mg/dL * Correction Factor: 30 mg/dL/unit * Nutritional / Prandial insulin per carb ratio of 1 unit per 11 grams CHO consumed PLAN FOR DISCHARGE: * Pt likely noncompliant - will check with CDE * Dosing recommendations TBD based on further BSG data * Please note that the plan above was derived based on current level of insulin resistance and hospital stress. These recommendations are appropriate for inpatient admission only. Plan of care upon discharge will need to be reassessed to avoid potential outpatient hypo/hyperglycemia. Thank you.
--- NOTE | 2017-09-12 08:35 | Clinical Documentation Query ---
NEEMA Figueroa : CLINICAL DOCUMENTATION QUERIES QUERY 1 OF 2 Patient is an 82 year old female admitted for evaluation of anemia in the setting of anticoagulation for treatment of PE and DVT with an IVC filter placed 08/23. As appropriate, consider documentation of the PE and DVT as acute to capture the acuity of these conditions as coding will not capture them as documented. See below for [facility] guidelines regarding the constitution of acuity. Thank you. In your clinical opinion is this patient being managed for: ( ) Acute PE and Acute DVT ( ) Not Agree ( ) Other explanation of clinical findings (Please Explain) ( ) Unable to determine (Please Define) ( ) Need to Discuss The medical record reflects the following clinical findings, treatment, and risk factors. Clinical Indicators: As above Treatment: Lovenox, IVC filter Risk Factors: Age, sedentary lifestyle/inactivity Acute PE: Patients with acute PE typically develop signs and symptoms immediately after obstruction of the pulmonary artery(ies) *"Acute" defines the period of time beginning with the initial diagnosis, up to and including the entire period of time where anticoagulation is administered (3-12 months). *Indicators: dyspnea, pleuritic chest pain, tachycardia, anxiety, diaphoresis, cough, rales, rhonchi, hemoptysis, S2, S3 or S4 gallop, cyanosis; CT of chest = concave filling defect ("trailing edge") *Treatment: anticoagulants 3-6 months QUERY 2 OF 2 Consider documentation of the acuity and etiology of the anemia as suggested below in order to capture the associated SOI and ROM. Thank you. In your clinical opinion is this patient being managed for: ( ) Acute blood loss anemia secondary to R thigh and R pelvis hematomas ( ) Not Agree ( ) Other explanation of clinical findings (Please Explain) ( ) Unable to determine (Please Define) ( ) Need to Discuss The medical record reflects the following clinical findings, treatment, and risk factors. Clinical Indicators: As above Treatment: Hold Lovenox, serial hematology, transfusion of PRBC's. Risk Factors: Lovenox therapy Please clarify and document your clinical opinion in the progress notes and discharge summary. Terms such as "probable", "suspected", "likely", "questionable", "possible", or "still to be ruled out" are acceptable. IF IN AGREEMENT, YOU MUST DOCUMENT ABOVE DIAGNOSTIC STATEMENT IN DAILY PROGRESS NOTES AND DISCHARGE SUMMARY. This document is not part of the patient's record. Thank You, Contreras Manjarrez RN [phone]
[2017-09-12] MEDS: NYSTATIN POWDER 15GM BTL EXT SCH ×2 (08:42→19:40)
[2017-09-12] MEDS: DILTIAZEM HCL 120 MG EXT REL CAP PO SCH (08:44)
[2017-09-12] MEDS: SOTALOL HCL 80 MG TAB PO SCH (08:44)
[2017-09-12] MEDS: LIDODERM (LIDOCAINE) PATCH 5% TD SCH (08:51)
[2017-09-12] MEDS ORDERED: PROPRANOLOL HCL 20 MG TAB PO SCH (09:00)
[2017-09-12] MEDS ORDERED: INSULIN GLARGINE SOLOSTAR 100 UNITS/ML 3 ML PEN SC SCH ×2 (09:00)
[2017-09-12 11:33] VITALS: BP 132/70; PULSE 60; TEMP 36.8; O2SAT 99
--- NOTE | 2017-09-12 11:49 | Surgery Consultation ---
Consultation Date of Consultation: Sep 12, 2017. Attending Physician: Sherlyn Cervantes M.D. Reason for Consultation: Right thigh hematoma (Brinda Cervantes .ROWAN) History of Present Illness Pt is 82 y/o female with past medical history of HTN, a-fib s/p ablations, pacemaker, DM II who presented to ER with c/o anemia. Patient with recent hx DVT LLE, PE and hospitalized in this facility on 08/19/17- was on Coumadin and heparin. Hx IVC filter placed 08/23/17 at [facility].. She was [place] [facility] for anemia and right pelvic and right lower extremity intramuscular hematoma. Patient was sent to [facility] for rehabilitation and was on Lovenox. Hx fall to right knee last week and seen by ortho and given brace to help with ambulation. Patient states she had weakness and numbness of the right leg prior to the blood clot right around Tiffany time. States in the past week she has noticed that she has been able to feel more sensation of the anterior thigh compared to previously. Patient reports past couple of days with dizziness, weakness and hasn't been able to do therapy at [facility]. Very fatigued and tired. Denies fever/chills, diaphoresis, hematochezia, melena, hematemesis, diarrhea, constipation, CUEVAS, syncope, vision changes, neck pain, CP, SOB, orthopnea, palpitations, cough, sore throat, choking, otalgia, rhinorrhea, urinary symptoms. In ER heme negative stool. CT ABD/PELVIS: Slightly decreased size of intramuscular hematoma involving the right iliacus and iliopsoas musculature demonstrating surrounding edema. moderate to large intramuscular hematoma of the right rectus femoris musculature and possibly also involving the vastus intermedius. Slightly decreased size of thrombus within the IVC with persistent thrombus noted within the left common femoral, superficial femoral and profunda femoris veins. Infrarenal IVC filter in place. She has been transfused 2 units of PRBCs H&H today 8.9/.0 (Brinda Cervantes PA-C) Past Medical/Surgical History Past Medical History (1) Atrial fibrillation Status: Chronic (2) CHF (congestive heart failure) Status: Chronic (3) Diabetes mellitus, type 2 Status: Chronic (4) Dyslipidemia Status: Chronic (5) Essential tremor Status: Chronic (6) Hypertension Status: Chronic (7) Hypothyroidism Status: Chronic (8) Osteoporosis Status: Chronic Past Surgical History: (1) S/P IVC filter Permanent Comment: 08/23/17 Status: Resolved (2) Status post cardiac pacemaker procedure Status: Chronic (3) Status post catheter ablation of atrial fibrillation Status: Chronic (4) Status post hysterectomy Permanent Comment: with BSO; fibroid Status: Chronic (5) Status post right knee replacement Status: Chronic (6) Status post tonsillectomy (Brinda Cervantes PA-C) Family History COPD (chronic obstructive pulmonary disease) MOTHER Colon cancer BROTHER Congestive heart failure MOTHER Coronary artery disease MOTHER DVT BROTHER SISTER Lung cancer SISTER (Brinda Cervantes PA-C) COPD (chronic obstructive pulmonary disease) MOTHER Colon cancer BROTHER Congestive heart failure MOTHER Coronary artery disease MOTHER DVT BROTHER SISTER Lung cancer SISTER (aDrius Mazariegos M.D.) Social History Smoking Status: Never Smoker Smokeless Tobacco Use: No Alcohol Use: none Drug Use: none Housing Status: lives alone Occupation Status: retired (Brinda Cervantes PA-C) Allergies Coded Allergies: Levofloxacin (Verified Adverse Reaction, Mild, NAUSEA, 09/11/17) Propofol (Verified Adverse Reaction, Mild, NAUSEA, 08/27/17) Home Medications Scheduled Alprazolam (Xanax), 0.25 MG PO HS Diltiazem Hcl Ext Rel (Tiazac), 240 MG PO DAILY Enoxaparin (Lovenox), 70 MG SQ BID Insulin Aspart (Novolog), SC UD Insulin Glargine (Lantus Solostar), 30-40 UNITS SC DAILY Lidocaine (Lidocaine), 1 PATCH TOP QAM Nystatin (Topical) (Nyata), 1 APPLN TOP BID Propranolol (Inderal), 20 MG PO DAILY Senna/Docusate Sod (Senokot S), 1 TAB PO DAILY Sotalol HCl (Sotalol HCl), 120 MG PO DAILY Scheduled PRN Acetaminophen (Tylenol), 500 MG PO Q4 PRN for UNDECIDED Alprazolam (Xanax), 0.25 MG PO BID PRN for Anxiety Bisacodyl (Bisac-Evac), 10 MG PO DAILY PRN for Constipation Dextrose (Diabetic Use) (Glucose), 1 APPLN PO PRN PRN for HYPOGLYCEMIA Docusate Sodium (Colace), 100 MG PO BID PRN for Constipation Glucagon (Glucagon Emergency Kit), 1 DOSE INJ UD PRN for Hypoglycemia Protocol Hydrocodone/Acetaminophen 5MG/325MG ([place] 5MG/325MG), 1 TABLET PO Q4 PRN for Pain Hydrocodone/Acetaminophen 5MG/325MG ([place] 5MG/325MG), 2 TABLETS PO Q4 PRN for Pain Magnesium Hydroxide (Milk Of Magnesia), 30 ML PO DAILY PRN for Constipation Polyethylene Glycol 3350 (Miralax), 17 GM PO DAILY PRN for Constipation Sodium Phosphate/Biphosphate (Fleet Enema), 1 DOSE [place] DAILY PRN for Constipation Current Inpatient Medications Current Inpatient Medications Medications (Trade) Dose Ordered Sig/Herbert Route Start Time Stop Time Status Last Admin Dose Admin Ioversol (Optiray 320) 125 ml UD PRN IV 09/11/17 11:15 09/15/17 11:14 Acetaminophen (Tylenol Tab) 650 mg Q4H PRN PO 09/11/17 13:15 10/11/17 13:14 Ondansetron HCl (Zofran Inj) 4 mg Q6H PRN IV 09/11/17 13:15 10/11/17 13:14 Nitroglycerin (Nitrostat Tab) 0.4 mg UD PRN SL 09/11/17 13:15 10/11/17 13:14 Magnesium Hydroxide (Milk Of Magnesia Susp) 30 ml Q12H PRN PO 09/11/17 14:00 10/11/17 13:59 Polyethylene (Miralax Powder Packet) 17 gm DAILY PRN PO 09/11/17 14:00 10/11/17 13:59 Alprazolam (Xanax Tab) 0.25 mg BID PRN PO 09/11/17 14:00 10/11/17 13:59 Alprazolam (Xanax Tab) 0.25 mg HS PO 09/11/17 21:00 10/11/17 20:59 09/11/17 20:49 0.25 MG Diltiazem HCl (TIAzac CAP) 240 mg DAILY PO 09/12/17 09:00 10/12/17 08:59 09/12/17 08:44 240 MG Acetaminophen/ Hydrocodone Bitart ([place] 5/325 Tab) 1 tab Q4 PRN PO 09/11/17 14:00 09/25/17 13:59 Nystatin (Mycostatin Powder) 1 appln BID EXT 09/11/17 21:00 10/11/17 20:59 09/12/17 08:42 1 APPLN Sotalol HCl (Betapace Tab) 120 mg DAILY PO 09/12/17 09:00 10/12/17 08:59 09/12/17 08:44 120 MG Lidocaine (Lidoderm Patch 5%) 1 patch QAM TD 09/12/17 09:00 10/12/17 08:59 Miscellaneous (Remove Lidoderm Patch) 1 ea DAILY@21 N/A 09/11/17 21:00 10/11/17 20:59 09/11/17 20:49 1 EA Insulin Aspart (novoLOG ASPART) SLIDING SCALE If C... ACHS SC 09/11/17 16:00 10/11/17 15:59 09/11/17 17:46 2 UNITS Glucose (Glucose 40% Gel) 15-30 GRAMS 15 GRAMS... UD PRN PO 09/11/17 14:15 10/11/17 14:14 Glucose (Glucose Chew Tab) 4-8 Tablets 4 Tabl... UD PRN PO 09/11/17 14:15 10/11/17 14:14 Dextrose (Dextrose 50% 50ML Syringe) 25-50ML OF 50% DW IV FOR... UD PRN IV 09/11/17 14:15 10/11/17 14:14 Glucagon (Glucagon Inj) 1 mg UD PRN SQ 09/11/17 14:15 10/11/17 14:14 Miscellaneous Information (Consult Glycemic Management Pharmacy) 1 ea UD N/A 09/11/17 14:11 10/11/17 14:10 Insulin Glargine (Lantus Solostar Pen) 12 units Q12 SC 09/12/17 09:00 10/12/17 08:59 09/12/17 08:50 12 UNITS (Brinda Cervantes ., KIRSTEN-C) Review of Systems Constitutional: + weakness, + fatigue, No fever, No chills Respiratory: No shortness of breath Cardiovascular: No chest pain Abdomen: No pain Musculoskeletal: + problem reported (weakness and loss of sensation of the right leg , anterior calf without sensation) Neurologic: + weakness Endocrine: + fatigue Hematologic / Lymphatic: No abnormal bleeding/bruising (Brinda Cervantes ., PA-C ) Physical Exam Date Time Temp Pulse Resp B/P (MAP) Pulse Ox O2 Delivery O2 Flow Rate FiO2 09/12/17 11:33 36.8 60 18 132/70 (90) 99 Room Air 09/12/17 08:00 Room Air 09/12/17 07:18 36.9 63 18 106/66 (79) 97 09/12/17 04:00 Room Air 09/12/17 03:37 36.9 65 18 114/64 (81) 96 Room Air 09/11/17 23:59 Room Air 09/11/17 23:46 36.9 63 19 107/63 (78) 97 Room Air 09/11/17 20:00 Room Air 09/11/17 19:21 36.7 65 18 112/64 (80) 97 Room Air 09/11/17 17:41 36.7 60 16 107/63 100 09/11/17 16:49 37.1 63 18 114/67 100 09/11/17 16:48 Room Air 09/11/17 16:10 36.7 60 18 112/68 100 09/11/17 16:06 36.7 60 18 107/67 100 09/11/17 15:40 37.2 60 14 108/59 97 09/11/17 14:20 36.6 60 18 99/52 98 0.0 09/11/17 13:45 36.5 60 18 104/53 97 0.0 09/11/17 13:20 36.6 65 18 95/43 97 0.0 09/11/17 13:00 36.7 60 18 94/51 96 0.0 09/11/17 12:59 60 09/11/17 12:55 96 Room Air 0.0 09/11/17 12:45 37.1 60 18 93/43 97 0.0 General Appearance: WD/WN, no apparent distress Head: normocephalic, atraumatic Eyes: sclerae normal ENT: hearing grossly normal Neck: trachea midline Respiratory/Chest: no respiratory distress, no accessory muscle use Abdomen/GI: non tender, soft, no organomegaly, no pulsatile mass Back: normal inspection Extremities/Musculoskelatal: normal inspection, no pedal edema, + pertinent finding (right leg warm, good pulses +2 dorsalis pedis and posterior tibialis + 2 ) Neurologic/Psych: alert, normal mood/affect, oriented x 3, + motor weakness ( right leg), + sensory deficit (loss of sensation of the anterior calf) Skin: normal color, warm/dry, no rash (Brinda Cervantes ., PA-C) Laboratory Results Last 24 Hours Test 09/11/17 16:03 09/11/17 20:21 09/11/17 20:52 09/11/17 23:48 Bedside Glucose 168 mg/dl 107 mg/dl 124 mg/dl Hemoglobin 9.4 g/dL Hematocrit 27.1 % Test 09/12/17 03:41 09/12/17 05:56 09/12/17 06:12 Bedside Glucose 92 mg/dl 87 mg/dl White Blood Count 7.29 K/uL Red Blood Count 2.84 M/uL Hemoglobin 8.9 g/dL Hematocrit 26.0 % Mean Corpuscular Volume 91.5 fL Mean Corpuscular Hemoglobin 31.3 pg Mean Corpuscular Hemoglobin Concent 34.2 g/dl Platelet Count 181 K/uL Nucleated RBC Absolute Count (auto) 0.22 K/uL Nucleated Red Blood Cells % 3.0 % Sodium Level 137 mmol/L Potassium Level 4.2 mmol/L Chloride Level 106 mmol/L Carbon Dioxide Level 26 mmol/L Anion Gap 5.0 mmol/L Blood Urea Nitrogen 29 mg/dl Creatinine 0.94 mg/dl Est Creatinine Clear Calc Drug Dose 43.0 ml/min Estimated GFR () 66.4 Estimated GFR (Non- 57.3 BUN/Creatinine Ratio 30.5 Random Glucose 70 mg/dl Calcium Level 7.2 mg/dl CT scan abdomen and pelvis IMPRESSION: 1. Slightly decreased size of intramuscular hematoma involving the right iliacus and iliopsoas musculature demonstrating surrounding edema. Additionally, there is a moderate to large intramuscular hematoma of the right rectus femoris musculature and possibly also involving the vastus intermedius, only partially imaged. 2. Slightly decreased size of thrombus within the IVC with persistent thrombus noted within the left common femoral, superficial femoral and profunda femoris veins. Infrarenal IVC filter in place. 3. Additional findings as above. (Brinda Cervantes ., PA-C) Assessment & Plan 82 year-old female with history of Left lower extremity DVT diagnosed 08/19 s/p IVC filter placement at [facility] who developed right intramuscular hematoma involving the right iliacus and iliopsoas musculature. She presented to emergency department with low Hemoglobin and weakness and fatigue. CT scan on 09/11/2017 showed slightly decreased size of intramuscular hematoma. Hemoglobin today 8.9 s/p 2 units of PRBCs. Plan: No acute surgical intervention. CT scan showing stable hematoma of the right iliacus and iliopsoas (actually decreased in size compared to previous CT scan). Would continue conservative management at this time Hold anticoagulants Monitor Hemoglobin May need bleeding scan vs endoscopy to rule out other etiology of blood loss as hematoma stable if hemoglobin continues to drop will follow Dr. Mazariegos has seen and examined patient, agrees with above (Brinda Cervantes ., PA-C) I have interviewed and examined this patient and reviewed the labs and radiology reports and I agree with the above note the patient has a retroperitoneal hematoma that by CT scan compared to previous is probably a little bit smaller but is at least no larger. She does have a history of anemia and her hemoglobin and hematocrit were noted. The etiology of the anemia is unclear but there is no expanding hematoma. I doubt that that is the source at this time. Her leg symptoms have been present now for at least 3-4 weeks. She seems to have a little bit more feeling in her leg above her knee so they may be improving. I don't feel there is any need for surgical intervention at this time. (Darius Mazariegos M.D.)
--- NOTE | 2017-09-12 12:20 | Orthopedic Consultation ---
Orthopedic Consultation Date of Consultation: Sep 12, 2017. Attending Physician: Sherlyn Cervantes M.D. Reason for Consultation: Right LE hematoma History of Present Illness The patient is an 82-year-old female seen at bedside for right lower extremity hematoma, pain and weakness. The patient has a significant past medical history for left lower extremity DVT treated at [facility] 2016 to 09/04/2017. She separately developed right lower extremity hematoma more specifically involving right iliacus, iliopsoas musculature and right rectus femoris and vastus intermedius musculature. The patient reports decreased sensation and significant weakness to her right lower extremity since diagnosis of hematoma. In addition to hematoma she reports a fall while hospitalized onto her right lower extremity and has pain to her right knee. She did have an IVC filter placed during her hospital stay otherwise she denies recent surgery. She does report being on warfarin for atrial fibrillation. She has a right total knee arthroplasty which was performed in 2011 in [place]. Past Medical/Surgical History Medical Problems: (1) Acute bronchitis with bronchospasm Status: Acute (2) Anemia Status: Acute (3) Hypoxemia Status: Acute (4) Retroperitoneal hematoma Status: Acute Family History COPD (chronic obstructive pulmonary disease) MOTHER Colon cancer BROTHER Congestive heart failure MOTHER Coronary artery disease MOTHER DVT BROTHER SISTER Lung cancer SISTER Social History Smoking Status: Never Smoker Smokeless Tobacco Use: No Alcohol Use: none Drug Use: none Housing Status: lives alone Occupation Status: retired Allergies Coded Allergies: Levofloxacin (Verified Adverse Reaction, Mild, NAUSEA, 09/11/17) Propofol (Verified Adverse Reaction, Mild, NAUSEA, 08/27/17) Home Medications Scheduled Alprazolam (Xanax), 0.25 MG PO HS Diltiazem Hcl Ext Rel (Tiazac), 240 MG PO DAILY Enoxaparin (Lovenox), 70 MG SQ BID Insulin Aspart (Novolog), SC UD Insulin Glargine (Lantus Solostar), 30-40 UNITS SC DAILY Lidocaine (Lidocaine), 1 PATCH TOP QAM Nystatin (Topical) (Nyata), 1 APPLN TOP BID Propranolol (Inderal), 20 MG PO DAILY Senna/Docusate Sod (Senokot S), 1 TAB PO DAILY Sotalol HCl (Sotalol HCl), 120 MG PO DAILY Scheduled PRN Acetaminophen (Tylenol), 500 MG PO Q4 PRN for UNDECIDED Alprazolam (Xanax), 0.25 MG PO BID PRN for Anxiety Bisacodyl (Bisac-Evac), 10 MG PO DAILY PRN for Constipation Dextrose (Diabetic Use) (Glucose), 1 APPLN PO PRN PRN for HYPOGLYCEMIA Docusate Sodium (Colace), 100 MG PO BID PRN for Constipation Glucagon (Glucagon Emergency Kit), 1 DOSE INJ UD PRN for Hypoglycemia Protocol Hydrocodone/Acetaminophen 5MG/325MG ([place] 5MG/325MG), 1 TABLET PO Q4 PRN for Pain Hydrocodone/Acetaminophen 5MG/325MG ([place] 5MG/325MG), 2 TABLETS PO Q4 PRN for Pain Magnesium Hydroxide (Milk Of Magnesia), 30 ML PO DAILY PRN for Constipation Polyethylene Glycol 3350 (Miralax), 17 GM PO DAILY PRN for Constipation Sodium Phosphate/Biphosphate (Fleet Enema), 1 DOSE MD DAILY PRN for Constipation Current Inpatient Medications Current Inpatient Medications Medications (Trade) Dose Ordered Sig/Herbert Route Start Time Stop Time Status Last Admin Dose Admin Ioversol (Optiray 320) 125 ml UD PRN IV 09/11/17 11:15 09/15/17 11:14 Acetaminophen (Tylenol Tab) 650 mg Q4H PRN PO 09/11/17 13:15 10/11/17 13:14 Ondansetron HCl (Zofran Inj) 4 mg Q6H PRN IV 09/11/17 13:15 10/11/17 13:14 Nitroglycerin (Nitrostat Tab) 0.4 mg UD PRN SL 09/11/17 13:15 10/11/17 13:14 Magnesium Hydroxide (Milk Of Magnesia Susp) 30 ml Q12H PRN PO 09/11/17 14:00 10/11/17 13:59 Polyethylene (Miralax Powder Packet) 17 gm DAILY PRN PO 09/11/17 14:00 10/11/17 13:59 Alprazolam (Xanax Tab) 0.25 mg BID PRN PO 09/11/17 14:00 10/11/17 13:59 Alprazolam (Xanax Tab) 0.25 mg HS PO 09/11/17 21:00 10/11/17 20:59 09/11/17 20:49 0.25 MG Diltiazem HCl (TIAzac CAP) 240 mg DAILY PO 09/12/17 09:00 10/12/17 08:59 09/12/17 08:44 240 MG Acetaminophen/ Hydrocodone Bitart ([place] 5/325 Tab) 1 tab Q4 PRN PO 09/11/17 14:00 09/25/17 13:59 Nystatin (Mycostatin Powder) 1 appln BID EXT 09/11/17 21:00 10/11/17 20:59 09/12/17 08:42 1 APPLN Sotalol HCl (Betapace Tab) 120 mg DAILY PO 09/12/17 09:00 10/12/17 08:59 09/12/17 08:44 120 MG Lidocaine (Lidoderm Patch 5%) 1 patch QAM TD 09/12/17 09:00 10/12/17 08:59 Miscellaneous (Remove Lidoderm Patch) 1 ea DAILY@21 N/A 09/11/17 21:00 10/11/17 20:59 09/11/17 20:49 1 EA Insulin Aspart (novoLOG ASPART) SLIDING SCALE If C... ACHS SC 09/11/17 16:00 10/11/17 15:59 09/12/17 11:55 4 UNITS Glucose (Glucose 40% Gel) 15-30 GRAMS 15 GRAMS... UD PRN PO 09/11/17 14:15 10/11/17 14:14 Glucose (Glucose Chew Tab) 4-8 Tablets 4 Tabl... UD PRN PO 09/11/17 14:15 10/11/17 14:14 Dextrose (Dextrose 50% 50ML Syringe) 25-50ML OF 50% DW IV FOR... UD PRN IV 09/11/17 14:15 10/11/17 14:14 Glucagon (Glucagon Inj) 1 mg UD PRN SQ 09/11/17 14:15 10/11/17 14:14 Miscellaneous Information (Consult Glycemic Management Pharmacy) 1 ea UD N/A 09/11/17 14:11 10/11/17 14:10 Insulin Glargine (Lantus Solostar Pen) 12 units Q12 SC 09/12/17 09:00 10/12/17 08:59 09/12/17 08:50 12 UNITS Review of Systems The review of systems are negative with the exception of those in history of present illness above. Physical Exam Date Time Temp Pulse Resp B/P (MAP) Pulse Ox O2 Delivery O2 Flow Rate FiO2 09/12/17 11:33 36.8 60 18 132/70 (90) 99 Room Air 09/12/17 08:00 Room Air 09/12/17 07:18 36.9 63 18 106/66 (79) 97 09/12/17 04:00 Room Air 09/12/17 03:37 36.9 65 18 114/64 (81) 96 Room Air 09/11/17 23:59 Room Air 09/11/17 23:46 36.9 63 19 107/63 (78) 97 Room Air 09/11/17 20:00 Room Air 09/11/17 19:21 36.7 65 18 112/64 (80) 97 Room Air 09/11/17 17:41 36.7 60 16 107/63 100 09/11/17 16:49 37.1 63 18 114/67 100 09/11/17 16:48 Room Air 09/11/17 16:10 36.7 60 18 112/68 100 09/11/17 16:06 36.7 60 18 107/67 100 09/11/17 15:40 37.2 60 14 108/59 97 09/11/17 14:20 36.6 60 18 99/52 98 0.0 09/11/17 13:45 36.5 60 18 104/53 97 0.0 09/11/17 13:20 36.6 65 18 95/43 97 0.0 09/11/17 13:00 36.7 60 18 94/51 96 0.0 09/11/17 12:59 60 09/11/17 12:55 96 Room Air 0.0 09/11/17 12:45 37.1 60 18 93/43 97 0.0 NAD, AOx3 LLE NVSI _EHL/FHL/TA/GS SILT grossly, CR< 2 seconds, +2 DP pulse, compartment soft NT, skin intact. RLE NV intact, 5/5 MS to EHL/FHL/TA/GS testing, 1-2/5 MS with quadriceps muscle testing, decreased sensation to light touch and 2-point discrimination to the L2, L3, L4 distribution, CR< 2 seconds, +2 DP pulse, compartment soft NT , skin intact. +ecchymosis to anterior medial knee, healed anterior midline scar, +effusion. No erythema. +extension lag Laboratory Results Last 24 Hours Test 09/11/17 16:03 09/11/17 20:21 09/11/17 20:52 09/11/17 23:48 Bedside Glucose 168 mg/dl 107 mg/dl 124 mg/dl Hemoglobin 9.4 g/dL Hematocrit 27.1 % Test 09/12/17 03:41 09/12/17 05:56 09/12/17 06:12 Bedside Glucose 92 mg/dl 87 mg/dl White Blood Count 7.29 K/uL Red Blood Count 2.84 M/uL Hemoglobin 8.9 g/dL Hematocrit 26.0 % Mean Corpuscular Volume 91.5 fL Mean Corpuscular Hemoglobin 31.3 pg Mean Corpuscular Hemoglobin Concent 34.2 g/dl Platelet Count 181 K/uL Nucleated RBC Absolute Count (auto) 0.22 K/uL Nucleated Red Blood Cells % 3.0 % Sodium Level 137 mmol/L Potassium Level 4.2 mmol/L Chloride Level 106 mmol/L Carbon Dioxide Level 26 mmol/L Anion Gap 5.0 mmol/L Blood Urea Nitrogen 29 mg/dl Creatinine 0.94 mg/dl Est Creatinine Clear Calc Drug Dose 43.0 ml/min Estimated GFR () 66.4 Estimated GFR (Non- 57.3 BUN/Creatinine Ratio 30.5 Random Glucose 70 mg/dl Calcium Level 7.2 mg/dl Assessment & Plan R Thigh hematoma, radiculopathy L2/L3/L4, r/o lumbar pathology vs local compression secondary to thigh hematoma, most likely etiology given the HPI -Will order new imaging of right knee, hip, and lumbar spine. Pending results of imaging patient may weight-bear as tolerates on her right lower extremity with hinge knee brace locked in extension with assistance. Will need extensive physical therapy and occupational therapy. I had a long discussion the patient that likely etiology is a result of right thigh hematoma and local nerve compression, however cannot rule out lumbar involvement at this time. Her compartments are soft and compressible without pain I do not suspect compartment syndrome. Hematoma on CT scan demonstrates decreasing in size. No surgical intervention warranted for hematoma evacuation at this time. She'll need tight monitoring of her anticoagulation/treatment in order to prevent recurrence of hematoma. Patient unable to have MRI performed secondary to pacemaker. Pending lumbar spine imaging may need spine consultation/workup to rule out lumbar pathology. The patient has bruising to her right knee and a large effusion, I suspect hematoma as well given her recent history and fall, will f/u XR of right knee to rule out injury. Thank you for the consultation.
[2017-09-12 13:45] VITALS: Ht 165.1 cm; Wt 70.7 kg
[2017-09-12] MEDS ORDERED: INSULIN GLARGINE SOLOSTAR 100 UNITS/ML 3 ML PEN SC ONE ×2 (13:45)
--- NOTE | 2017-09-12 15:27 | DIAGNOSTIC IMAGING REPORT ---
AP PELVIS AND RIGHT HIP 3 VIEWS CLINICAL HISTORY: Pelvis and right hip pain status post trauma COMPARISON STUDY: No previous studies for comparison. FINDINGS: The bones are mildly osteopenic. Moderate degenerative changes are present within the lower lumbar spine. No acute fractures or dislocations are visualized. There is no SI joint diastases. There is no symphysis diastases. IMPRESSION: No acute fractures or dislocations identified. Electronically signed by: Addison Briggs M.D. 09/12/2017 3:26 PM Dictated Date/Time: 09/12/2017 3:25 PM
--- NOTE | 2017-09-12 15:42 | DIAGNOSTIC IMAGING REPORT ---
R KNEE 4 OR MORE VIEWS CLINICAL HISTORY: Right lower extremity trauma. COMPARISON: None FINDINGS: Alignment of the total right knee arthroplasty is anatomic. No acute fracture is identified. There is a large dense right knee joint effusion. A hemarthrosis cannot be excluded. IMPRESSION: 1. Large dense right knee joint effusion. A hemarthrosis cannot be excluded. No fracture identified however if persistent right knee pain, a CT could be obtained to evaluate for an occult fracture. 2. Status post total right knee arthroplasty hardware intact. Electronically signed by: Fernando Gabriel M.D. 09/12/2017 3:40 PM Dictated Date/Time: 09/12/2017 3:37 PM
--- NOTE | 2017-09-12 15:45 | DIAGNOSTIC IMAGING REPORT ---
L-SPINE MIN 4 VIEWS ROUTINE CLINICAL HISTORY: trauma to RLE, fall, decreased sensation and strength to RLE COMPARISON: None FINDINGS: A 9 mm calculus within the lower pole the right kidney is noted. IVC filter is incidentally noted. There is mild levoscoliosis of the lumbar spine. Mild loss of height of the inferior endplate of L4 is likely old. There is marked disc space narrowing with osteophytosis and vacuum disc phenomenon at L4-L5 and L5-S1. IMPRESSION: 1. No acute lumbar spine fracture. 2. Mild levoscoliosis of the lumbar spine. 3. Grade I anterolisthesis of L4 and L5. 4. Marked disc space narrowing with osteophytosis and vacuum disc phenomenon at L4-L5 and L5-S1. Electronically signed by: Fernando Gabriel M.D. 09/12/2017 3:44 PM Dictated Date/Time: 09/12/2017 3:41 PM
--- NOTE | 2017-09-12 19:18 | Medical Consult ---
Consultation Date of Consultation: Sep 12, 2017. Attending Physician: Sherlyn Cervantes M.D. History of Present Illness ONCOLOGY HEMATOLOGY CONSULT: Evaluation and management of intramuscular hematoma while on Lovenox therapy. Date of consult: 09/12/2017 HPI: 82-year-old female, who has significant medical history as outlined below, she was admitted at [facility] between 08/16/2017-08/22/2017, she had left lower extremity DVT and pulmonary embolism, multiple bilateral cavitary lung lesions, also has some right lower extremity weakness and some loss of sensation. She was then transferred at [facility] for IVC filter placement. Was admitted at [facility] between 08/22/2017-08/25/2017: - She had IVC filter placement on 08/23/2017 and then she was discharged on Lovenox therapy. She was admitted at [facility] between 08/27/2017-09/04/2017: - She was at [facility] for few days before she came back to the [facility] then transferred at [facility] for low hemoglobin, imaging studies found to have hematoma in the right pelvis extending into the right proximal thigh. She received blood trans support. - She was then started on IV heparin drip, she was all observe for 2 days and her hemoglobin level stayed stable and then she was discharged back to [facility] with Lovenox twice a day. Recently last week on 09/06/2017 she had some external fall with some injury to the right knee region, or the last few days she noticed to have some increasing swelling in the right lower thigh and some local discomfort, could not ambulate well because of that and had also increasing pain in the region and now she's admitted at [facility] on 09/11/2017 for significant anemia and another intramuscular hematoma noted in the right thigh, received 2 units of PRBC, able to mow right lower extremity distally. I saw her at bedside, she denies any bleeding from either sites, no new cardiac or pulmonary symptoms, now she is off the any anticoagulant treatment, just before the admission, she was on Lovenox therapy. No fever, no night sweats, denies any increasing abdominal discomfort, still has some right thigh pain, no nausea, no vomiting. Chronic back pain present. REVIEW OF SYSTEMS: GENERAL: No change in weight, she had increasing weakness when her hemoglobin dropped down and now with the blood transfusion it has improved, no fever, sweats or chills. SKIN: No skin rash, no bruising. HEAD: No headache, no dizziness. EYES: No change in the vision, no diplopia, EARS: No earache ,no tinnitus, NOSE: No epistaxis, No nasal discharge or stuffiness, MOUTH: No sores, no dysphagia, no hoarseness of voice, NECK: No lumps, No swelling in thyroid area. No stiffness. PULMONARY: No cough, No shortness of breath, no hemoptysis, no chest pain, No wheezing. CARDIOVASCULAR: No anginal chest pain, no PND, no orthopnea. No palpitation, right thigh edema present. No syncope. GASTROINTESTINAL: No abdominal pain, no nausea or vomiting. No diarrhea, No constipation. No blood in stool or black tarry stools. No abdominal distention. UROLOGIC: No burning urination. No hematuria. MUSCULOSKELETAL: right hip pain and the right thigh pain,. HEMATOLOGIC: anyway noted in the blood workup done yesterday, no bleeding disorder, No bruising NEUROLOGIC: No seizures, no focal weakness, no speech difficulty, No memory disturbances. Earlier she noticed to have some numbness in the right thigh which is somewhat improved. PSYCHIATRIC: No depression. No anxiety. No psychosis. PAST MEDICAL/SURGICAL HISTORY: - Atrial fibrillation, she was on oral Coumadin for the last 8 to 10 years. - Spinal stenosis - Hyperlipidemia - Diabetes mellitus - Left lower extremity DVT and pulmonary embolism - Essential tremor, hypertension - Lung nodules, multiple noted in the recent imaging studies. - S/P permanent pacemaker placement. - S/P IVC filter placement (08/23/2017) - Hematoma involving the right flank and right thigh. SOCIAL HISTORY: non-smoker, denies any ETOH abuse. FAMILY HISTORY: not significant. MEDICATIONS: please review her chart for detailed list of medications. Presently she is not on any anticoagulant treatment. ALLERGY: reported to have allergic to Levaquin and propofol PHYSICAL EXAMINATION: - Alert and oriented x3, thin built woman, not in any distress. - HEENT: no icterus, mild pallor noted, Throat: Normal. - Neck: No palpable cervical lymphadenopathy. - Chest: clear to auscultation. - Abdomen: soft, nontender, no hepatomegaly, no splenomegaly. - No focal neuro deficit. - Extremities: no finger clubbing, right distal thigh swelling present.. LABS: - WBC 9000, H&H of 6.1/18.5, Platelet count of 270,000 (115 1218) - Hemoglobin level improved to around 8.9 as of today with 2 units of blood. - Normal PT and PTT - BUN/creatinine: 29/0.9 IMAGING: CT Myelogram 08/30/17: 1. Degenerative changes of the lumbar spine with moderate spinal canal stenosis at L4-L5 level and mild canal stenosis at L5-S1 level. ~Multilevel, multifactorial moderate to severe neural foraminal narrowing in the lower lumbar spine. 2. Partially imaged, mixed density collection in the lateral right pelvis, consistent with patient known right lateral pelvic side wall hematoma. - CT scan of the abdomen and pelvis done on 09/11/2017 --> Slight decrease in the intramuscular hematoma involving the right iliacus and ileopsoas muscle noted, moderate to large intramuscular hematoma noted in the right rectus femoris muscle. Slight decrease in the cited thrombus noted within the IVC with a persistent thrombus in the left common femoral, superficial femoral and profunda femoris veins. Infrarenal IVC filter in place noted. Right lower extremity ultrasound done on 09/11/2017 --> 7.7 x 3 x 3.2 cm hematoma in the right inguinal region. Large 23 x 5 x 6.3 cm soft tissue hematoma noted in the mid thigh region. ASSESSMENT AND PLAN: 82-year-old female, who has long-standing history of atrial fibrillation over the last 8 to 10 years, she was on oral Coumadin, she was admitted at [facility] earlier in July 2017 for new left lower extremity DVT, multiple cavitating lesions noted at that time, she was transferred at [facility] for IVC filter placement because of extensive left lower extremity DVT but then had hematoma involving the right iliacus and ileopsoas muscle which required a temporary hold in the anticoagulant treatment but then she started with Lovenox and then she was discharged at [facility] but within few days she had an extensive fall with injury to the right lower thigh/knee region, now after few days he noticed to have significant hematoma in that area with once again drop in the hemoglobin level, received 2 units of PRBC during this hospitalization, now she is off the anticoagulant treatment. No evidence of compartment syndrome noted. Clinically she is otherwise doing well, denies any bleeding from either sites, has some painful swelling in the right lower thigh region. I think at this time we will continue to hold anticoagulant treatment, will see how she does in the next the several days, monitor her hemoglobin periodically. If she does well in the next 1 to 2 weeks, will consider for restarting Lovenox therapy perhaps at a lower dose (prophylactic dose). Will follow-up. Mrako Calloway MD Hem/Onc Past Medical/Surgical History Medical Problems: (1) Acute bronchitis with bronchospasm Status: Acute (2) Anemia Status: Acute (3) Hypoxemia Status: Acute (4) Retroperitoneal hematoma Status: Acute Family History COPD (chronic obstructive pulmonary disease) MOTHER Colon cancer BROTHER Congestive heart failure MOTHER Coronary artery disease MOTHER DVT BROTHER SISTER Lung cancer SISTER Social History Smoking Status: Never Smoker Smokeless Tobacco Use: No Alcohol Use: none Drug Use: none Housing Status: lives alone Occupation Status: retired Allergies Coded Allergies: Levofloxacin (Verified Adverse Reaction, Mild, NAUSEA, 09/11/17) Propofol (Verified Adverse Reaction, Mild, NAUSEA, 08/27/17) Current Inpatient Medications Current Inpatient Medications Medications (Trade) Dose Ordered Sig/Herbert Route Start Time Stop Time Status Last Admin Dose Admin Ioversol (Optiray 320) 125 ml UD PRN IV 09/11/17 11:15 09/15/17 11:14 Acetaminophen (Tylenol Tab) 650 mg Q4H PRN PO 09/11/17 13:15 10/11/17 13:14 Ondansetron HCl (Zofran Inj) 4 mg Q6H PRN IV 09/11/17 13:15 10/11/17 13:14 Nitroglycerin (Nitrostat Tab) 0.4 mg UD PRN SL 09/11/17 13:15 10/11/17 13:14 Magnesium Hydroxide (Milk Of Magnesia Susp) 30 ml Q12H PRN PO 09/11/17 14:00 10/11/17 13:59 Polyethylene (Miralax Powder Packet) 17 gm DAILY PRN PO 09/11/17 14:00 10/11/17 13:59 Alprazolam (Xanax Tab) 0.25 mg BID PRN PO 09/11/17 14:00 10/11/17 13:59 Alprazolam (Xanax Tab) 0.25 mg HS PO 09/11/17 21:00 10/11/17 20:59 09/11/17 20:49 0.25 MG Diltiazem HCl (TIAzac CAP) 240 mg DAILY PO 09/12/17 09:00 10/12/17 08:59 09/12/17 08:44 240 MG Acetaminophen/ Hydrocodone Bitart ([place] 5/325 Tab) 1 tab Q4 PRN PO 09/11/17 14:00 09/25/17 13:59 Nystatin (Mycostatin Powder) 1 appln BID EXT 09/11/17 21:00 10/11/17 20:59 09/12/17 08:42 1 APPLN Sotalol HCl (Betapace Tab) 120 mg DAILY PO 09/12/17 09:00 10/12/17 08:59 09/12/17 08:44 120 MG Lidocaine (Lidoderm Patch 5%) 1 patch QAM TD 09/12/17 09:00 10/12/17 08:59 Miscellaneous (Remove Lidoderm Patch) 1 ea DAILY@21 N/A 09/11/17 21:00 10/11/17 20:59 09/11/17 20:49 1 EA Insulin Aspart (novoLOG ASPART) SLIDING SCALE If C... ACHS SC 09/11/17 16:00 10/11/17 15:59 09/12/17 11:55 4 UNITS Glucose (Glucose 40% Gel) 15-30 GRAMS 15 GRAMS... UD PRN PO 09/11/17 14:15 10/11/17 14:14 Glucose (Glucose Chew Tab) 4-8 Tablets 4 Tabl... UD PRN PO 09/11/17 14:15 10/11/17 14:14 Dextrose (Dextrose 50% 50ML Syringe) 25-50ML OF 50% DW IV FOR... UD PRN IV 09/11/17 14:15 10/11/17 14:14 Glucagon (Glucagon Inj) 1 mg UD PRN SQ 09/11/17 14:15 10/11/17 14:14 Miscellaneous Information (Consult Glycemic Management Pharmacy) 1 ea UD N/A 09/11/17 14:11 10/11/17 14:10 Physical Exam Date Time Temp Pulse Resp B/P (MAP) Pulse Ox O2 Delivery O2 Flow Rate FiO2 09/12/17 16:00 Room Air 09/12/17 12:00 Room Air 09/12/17 11:33 36.8 60 18 132/70 (90) 99 Room Air 09/12/17 08:00 Room Air 09/12/17 07:18 36.9 63 18 106/66 (79) 97 09/12/17 04:00 Room Air 09/12/17 03:37 36.9 65 18 114/64 (81) 96 Room Air 09/11/17 23:59 Room Air 09/11/17 23:46 36.9 63 19 107/63 (78) 97 Room Air 09/11/17 20:00 Room Air 09/11/17 19:21 36.7 65 18 112/64 (80) 97 Room Air Laboratory Results Last 24 Hours Test 09/11/17 20:21 09/11/17 20:52 09/11/17 23:48 09/12/17 03:41 Hemoglobin 9.4 g/dL Hematocrit 27.1 % Bedside Glucose 107 mg/dl 124 mg/dl 92 mg/dl Test 09/12/17 05:56 09/12/17 06:12 09/12/17 11:11 09/12/17 15:54 White Blood Count 7.29 K/uL Red Blood Count 2.84 M/uL Hemoglobin 8.9 g/dL Hematocrit 26.0 % Mean Corpuscular Volume 91.5 fL Mean Corpuscular Hemoglobin 31.3 pg Mean Corpuscular Hemoglobin Concent 34.2 g/dl Platelet Count 181 K/uL Nucleated RBC Absolute Count (auto) 0.22 K/uL Nucleated Red Blood Cells % 3.0 % Sodium Level 137 mmol/L Potassium Level 4.2 mmol/L Chloride Level 106 mmol/L Carbon Dioxide Level 26 mmol/L Anion Gap 5.0 mmol/L Blood Urea Nitrogen 29 mg/dl Creatinine 0.94 mg/dl Est Creatinine Clear Calc Drug Dose 43.0 ml/min Estimated GFR () 66.4 Estimated GFR (Non- 57.3 BUN/Creatinine Ratio 30.5 Random Glucose 70 mg/dl Calcium Level 7.2 mg/dl Bedside Glucose 87 mg/dl 179 mg/dl 138 mg/dl
--- NOTE | 2017-09-12 19:19 | Progress Note ---
Medicine Progress Note Date & Time of Visit: Sep 12, 2017 at 11:00. Subjective Pt was seen and examined Lying in bed with no distress Pt said that the right groin tenderness improved She said that she is able to feel her right leg and able to move it Pt denies any bloody BM or hematuria She said that she feels much better today she is very worried about if she would be able to walk again denies any chest pain, palpitation, dizziness and SOB Objective Last 8 Hrs Date Time Temp Pulse Resp B/P (MAP) Pulse Ox O2 Delivery O2 Flow Rate FiO2 09/12/17 16:00 Room Air 09/12/17 12:00 Room Air 09/12/17 11:33 36.8 60 18 132/70 (90) 99 Room Air Physical Exam: General- No acute distress Head- atraumatic Eyes- PERRL, EOMI ENT- oropharynx clear Neck- supple, no JVD Lungs- No wheezing Heart- regular rhythm Abdomen- normal bowel sounds, soft Extremities- no calf tenderness, right groin tenderness, +B/L LE edema, Right knee swelling Neuro- alert, oriented x 3; PERRL Skin- warm & dry Laboratory Results: Last 24 Hours Test 09/11/17 20:21 09/11/17 20:52 09/11/17 23:48 09/12/17 03:41 Hemoglobin 9.4 g/dL Hematocrit 27.1 % Bedside Glucose 107 mg/dl 124 mg/dl 92 mg/dl Test 09/12/17 05:56 09/12/17 06:12 09/12/17 11:11 09/12/17 15:54 White Blood Count 7.29 K/uL Red Blood Count 2.84 M/uL Hemoglobin 8.9 g/dL Hematocrit 26.0 % Mean Corpuscular Volume 91.5 fL Mean Corpuscular Hemoglobin 31.3 pg Mean Corpuscular Hemoglobin Concent 34.2 g/dl Platelet Count 181 K/uL Nucleated RBC Absolute Count (auto) 0.22 K/uL Nucleated Red Blood Cells % 3.0 % Sodium Level 137 mmol/L Potassium Level 4.2 mmol/L Chloride Level 106 mmol/L Carbon Dioxide Level 26 mmol/L Anion Gap 5.0 mmol/L Blood Urea Nitrogen 29 mg/dl Creatinine 0.94 mg/dl Est Creatinine Clear Calc Drug Dose 43.0 ml/min Estimated GFR () 66.4 Estimated GFR (Non- 57.3 BUN/Creatinine Ratio 30.5 Random Glucose 70 mg/dl Calcium Level 7.2 mg/dl Bedside Glucose 87 mg/dl 179 mg/dl 138 mg/dl Assessment & Plan ANEMIA Present with Hgb on admission 6.1 Possible related to R thigh hematoma Recently had a fall on right side about [address] showed moderate to large intramuscular hematoma of the right rectus femoris musculature and possibly also involving the vastus intermedius, Received 2 units PRBC Hbg 8.9 today anticoagulant on hold Continue monitor H/H Transfused if hg drops below 8 HEMATOMA R PELVIS AND R THIGH CT ABD/PELVIS showed lightly decreased size of intramuscular hematoma involving the right iliacus and iliopsoas musculature demonstrating surrounding edema. Moderate to large intramuscular hematoma of the right rectus femoris musculature and possibly also involving the vastus intermedius. Ortho and surgery on board, No surgical intervention at this time recommended conservative treatment at this time. Will repeat u/s tomorrow or Continue monitor PT/OT LLE DVT/ PE hx DVT and PE dx 08/19/17. S/P ivc filter hold lovenox at this time heme/onc consult for assistance with anticoagulation options RIGHT KNEE PAIN/Swelling Continue Knee brace as per ortho continue lidocaine patch A-FIB s/p ablation. Rate Controlled Continue Diltazem and sotalol HYPONATREMIA Na 137 today Stable DANIELLE Creatine on admission 1.3 creatine 0.9 today -follow renal functions -avoid nephrotoxic agents when possible Resolved INSULIN DEPENDENT DM II -sliding scale and lantus -glycemic consult ANXIETY -continue alprazolam ESSENTIAL TREMOR on propranolol. DVT PROPHYLAXIS On SCDs CODE STATUS FULL CODE Current Inpatient Medications: Current Inpatient Medications Medications (Trade) Dose Ordered Sig/Herbert Route Start Time Stop Time Status Last Admin Dose Admin Ioversol (Optiray 320) 125 ml UD PRN IV 09/11/17 11:15 09/15/17 11:14 Acetaminophen (Tylenol Tab) 650 mg Q4H PRN PO 09/11/17 13:15 10/11/17 13:14 Ondansetron HCl (Zofran Inj) 4 mg Q6H PRN IV 09/11/17 13:15 10/11/17 13:14 Nitroglycerin (Nitrostat Tab) 0.4 mg UD PRN SL 09/11/17 13:15 10/11/17 13:14 Magnesium Hydroxide (Milk Of Magnesia Susp) 30 ml Q12H PRN PO 09/11/17 14:00 10/11/17 13:59 Polyethylene (Miralax Powder Packet) 17 gm DAILY PRN PO 09/11/17 14:00 10/11/17 13:59 Alprazolam (Xanax Tab) 0.25 mg BID PRN PO 09/11/17 14:00 10/11/17 13:59 Alprazolam (Xanax Tab) 0.25 mg HS PO 09/11/17 21:00 10/11/17 20:59 09/11/17 20:49 0.25 MG Diltiazem HCl (TIAzac CAP) 240 mg DAILY PO 09/12/17 09:00 10/12/17 08:59 09/12/17 08:44 240 MG Acetaminophen/ Hydrocodone Bitart ([place] 5/325 Tab) 1 tab Q4 PRN PO 09/11/17 14:00 09/25/17 13:59 Nystatin (Mycostatin Powder) 1 appln BID EXT 09/11/17 21:00 10/11/17 20:59 09/12/17 08:42 1 APPLN Sotalol HCl (Betapace Tab) 120 mg DAILY PO 09/12/17 09:00 10/12/17 08:59 09/12/17 08:44 120 MG Lidocaine (Lidoderm Patch 5%) 1 patch QAM TD 09/12/17 09:00 10/12/17 08:59 Miscellaneous (Remove Lidoderm Patch) 1 ea DAILY@21 N/A 09/11/17 21:00 10/11/17 20:59 09/11/17 20:49 1 EA Insulin Aspart (novoLOG ASPART) SLIDING SCALE If C... ACHS SC 09/11/17 16:00 10/11/17 15:59 09/12/17 11:55 4 UNITS Glucose (Glucose 40% Gel) 15-30 GRAMS 15 GRAMS... UD PRN PO 09/11/17 14:15 10/11/17 14:14 Glucose (Glucose Chew Tab) 4-8 Tablets 4 Tabl... UD PRN PO 09/11/17 14:15 10/11/17 14:14 Dextrose (Dextrose 50% 50ML Syringe) 25-50ML OF 50% DW IV FOR... UD PRN IV 09/11/17 14:15 10/11/17 14:14 Glucagon (Glucagon Inj) 1 mg UD PRN SQ 09/11/17 14:15 10/11/17 14:14 Miscellaneous Information (Consult Glycemic Management Pharmacy) 1 ea UD N/A 09/11/17 14:11 10/11/17 14:10
[2017-09-12 19:28] VITALS: BP 141/90; PULSE 78; TEMP 36.6; O2SAT 97
--- NOTE | 2017-09-12 19:38 | DIAGNOSTIC IMAGING REPORT ---
R EXTREMITY NONVASCULAR LIMITED CLINICAL HISTORY: Fall, inability to extend knee, r/o quad tendon rupture. Trauma. Pain. TECHNIQUE: Ultrasound COMPARISON STUDY: None FINDINGS: The suprapatellar tendon and quadriceps tendon appears intact. Of the hematoma appears described are unchanged IMPRESSION: 1. The suprapatellar tendon is intact. 2. Soft tissue hematomas previously described are unchanged The above report was generated using voice recognition software. It may contain grammatical, syntax or spelling errors. Electronically signed by: Darius James M.D. 09/12/2017 7:37 PM Dictated Date/Time: 09/12/2017 7:35 PM
[2017-09-12 20:37] LABS: HEMATOCRIT 27.1 % (37-47); HEMOGLOBIN 9.1 g/dL (12.0-16.0)
[2017-09-12] MEDS: ALPRAZOLAM 0.25 MG TAB PO SCH (21:26)
[2017-09-12 23:55] VITALS: BP 104/60; PULSE 71; TEMP 37.3; O2SAT 98
[2017-09-13] VITALS (8 sets, daily range): BP systolic 118–145; BP diastolic 57–87; PULSE 58–77; TEMP 36.3–37.3; O2SAT 95–99
[2017-09-13] MEDS: ACETAMINOPHEN 325 MG TAB PO PRN (00:45)
[2017-09-13 06:02] LABS: HEMATOCRIT 25.1 % (37-47); HEMOGLOBIN 8.4 g/dL (12.0-16.0); MEAN CELL VOLUME 95.1 fL (80-100); MEAN CORPUSCULAR HEMOGLOBIN 31.8 pg (25-34); MEAN CORPUSCULAR HGB CONC 33.5 g/dl (32-36); MEAN PLATELET VOLUME 8.5 fL (7.4-10.4); NUCLEATED RED BLOOD CELL ABS 0.06 K/uL (0-0); PLATELET COUNT 141 K/uL (130-400); RED CELL DISTRIBUTION WIDTH CV 20.7 % (11.5-14.5); RED CELL DISTRIBUTION WIDTH SD 67.4 fL (36.4-46.3); WHITE BLOOD COUNT 5.36 K/uL (4.8-10.8)
[2017-09-13 06:35] LABS: CALCIUM 6.9 mg/dl (8.5-10.1); CREATININE 0.87 mg/dl (0.60-1.20); POTASSIUM 4.6 mmol/L (3.5-5.1)
[2017-09-13] MEDS: NYSTATIN POWDER 15GM BTL EXT SCH ×2 (08:42→20:44)
[2017-09-13] MEDS: SOTALOL HCL 80 MG TAB PO SCH (08:42)
[2017-09-13] MEDS: DILTIAZEM HCL 120 MG EXT REL CAP PO SCH (08:43)
[2017-09-13] MEDS: INSULIN ASPART 100 UNITS/ML 3 ML PEN SC SCH ×4 (08:45→20:46)
[2017-09-13] MEDS: LIDODERM (LIDOCAINE) PATCH 5% TD SCH (08:47)
[2017-09-13] MEDS ORDERED: INSULIN GLARGINE SOLOSTAR 100 UNITS/ML 3 ML PEN SC SCH ×3 (09:00)
--- NOTE | 2017-09-13 09:15 | Pharmacy Progress Note ---
Pharmacy Glycemic Short Note 2 Date of Service Sep 13, 2017. OUTPATIENT ANTIDIABETIC REGIMEN: * Lantus 30-40 units SQ daily * NovoLog per scale - 0-12 units based on BSG ASSESSMENT: * 82yo diabetic female with poor outpatient control per recent A1c of 11.3% in 07/2017. * Goal A1c based on age/co-morbidities is ~ 8-9% * Pt admitted with moderate-severe hyperglycemia per ED labs/PRP. GLU = 311 mg/ dl * CDE spoke with pt yesterday regarding outpatient control * BSG management deteriorated due to outpatient steroid injections * Over the past 24 hours, BSGs ranged 87-179 mg/dL * Due to a fasting BSG yesterday below goal range, I decided to reduce her Lantus from her home regimen * Fasting BSG today = 136 mg/dL, Lunch BSG = 234 mg/dL * Tighten CF/CR and Increase Lantus by 20% PLAN FOR INPATIENT GLYCEMIC CONTROL: * Basal insulin: Increase * Lantus 26 units SQ AM * Bolus insulin: Tighten * NovoLog per scale ACHS or Q6hrs while NPO * Goal Range: Low 110 mg/dL - High 150 mg/dL * Correction Factor: 25 mg/dL/unit * Nutritional / Prandial insulin per carb ratio of 1 unit per 9 grams CHO consumed PLAN FOR DISCHARGE: * Pt getting steroid injections as outpatient which has caused poor glycemic control * If plan for further steroids - may need to come up with a change to regimen * Further dosing TBD based on discharge plans * Please note that the plan above was derived based on current level of insulin resistance and hospital stress. These recommendations are appropriate for inpatient admission only. Plan of care upon discharge will need to be reassessed to avoid potential outpatient hypo/hyperglycemia. Thank you.
[2017-09-13] MEDS ORDERED: INSULIN GLARGINE SOLOSTAR 100 UNITS/ML 3 ML PEN SC ONE (13:15)
--- NOTE | 2017-09-13 14:29 | Progress Note ---
Medicine Progress Note Date & Time of Visit: Sep 13, 2017 at 14:09. Subjective Pt was seen and examined Lying in bed with no distress Pt said that her right groin pain improved She said that she is having pain in her right knee Pt said that she has been moving her right LE extremity more freely She said that she able to feel the touch She said that she is still unable to lift the Right leg Denies any chest pain, palpitation, dizziness and SOB Objective Last 8 Hrs Date Time Temp Pulse Resp B/P (MAP) Pulse Ox O2 Delivery O2 Flow Rate FiO2 09/13/17 12:39 Room Air 09/13/17 11:36 36.8 62 18 118/64 (82) 95 09/13/17 08:04 36.9 70 16 145/72 (96) 98 Nasal Cannula 09/13/17 08:00 Room Air Physical Exam: General- No acute distress Head- atraumatic Eyes- PERRL, EOMI ENT- oropharynx clear Neck- supple, no JVD Lungs- No wheezing Heart- regular rhythm Abdomen- normal bowel sounds, soft Extremities- no calf tenderness, right groin tenderness, +B/L LE edema, Right knee swelling Neuro- alert, oriented x 3; PERRL Skin- warm & dry Laboratory Results: Last 24 Hours Test 09/12/17 15:54 09/12/17 19:34 09/12/17 20:09 09/13/17 05:50 Bedside Glucose 138 mg/dl 173 mg/dl Hemoglobin 9.1 g/dL 8.4 g/dL Hematocrit 27.1 % 25.1 % White Blood Count 5.36 K/uL Red Blood Count 2.64 M/uL Mean Corpuscular Volume 95.1 fL Mean Corpuscular Hemoglobin 31.8 pg Mean Corpuscular Hemoglobin Concent 33.5 g/dl RDW Standard Deviation 67.4 fL RDW Coefficient of Variation 20.7 % Platelet Count 141 K/uL Mean Platelet Volume 8.5 fL Nucleated RBC Absolute Count (auto) 0.06 K/uL Nucleated Red Blood Cells % 1.2 % Sodium Level 137 mmol/L Potassium Level 4.6 mmol/L Chloride Level 107 mmol/L Carbon Dioxide Level 27 mmol/L Anion Gap 3.0 mmol/L Blood Urea Nitrogen 21 mg/dl Creatinine 0.87 mg/dl Est Creatinine Clear Calc Drug Dose 50.7 ml/min Estimated GFR () 72.9 Estimated GFR (Non- 62.9 BUN/Creatinine Ratio 24.6 Random Glucose 113 mg/dl Calcium Level 6.9 mg/dl Test 09/13/17 06:49 09/13/17 10:57 Bedside Glucose 136 mg/dl 234 mg/dl Assessment & Plan ANEMIA Present with Hgb on admission 6.1 Possible related to R thigh hematoma Recently had a fall on right side about [address] showed moderate to large intramuscular hematoma of the right rectus femoris musculature and possibly also involving the vastus intermedius, Received 2 units PRBC Hbg 8.4 anticoagulant on hold Continue monitor H/H Transfused if hg drops below 8 HEMATOMA R PELVIS AND R THIGH CT ABD/PELVIS showed lightly decreased size of intramuscular hematoma involving the right iliacus and iliopsoas musculature demonstrating surrounding edema. Moderate to large intramuscular hematoma of the right rectus femoris musculature and possibly also involving the vastus intermedius. Ortho and surgery on board, No surgical intervention at this time recommended conservative treatment at this time. Right LE u/s showed soft tissue hematomas previously described are unchanged Continue monitor PT/OT LLE DVT/ PE hx DVT and PE dx 08/19/17. S/P ivc filter hold lovenox at this time heme/onc on board recommended to continue holding anticoagulant If her Hbg stable in the next few days, consider to restart lovenox at a lower dose Pt understands the risk of being off anticoagulant such as blood clot Also understands the risk being on anticoagulant such bleeding RIGHT KNEE PAIN/Swelling Continue Knee brace as per ortho Right knee xray showed large dense right knee joint effusion Case discussed with Ortho Dr. Martel No plan for knee aspiration at this time Recommended to continue wearing the knee brace while ambulation Encourage pt to work ROM of the knee PT/OT continue lidocaine patch LUNG NODULES CT showed multiple pulmonary nodules of the lung bases are again seen, largest of which measures 1.2 cm within the inferior segment lingula Continue outpatient management A-FIB s/p ablation. 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 DVT PROPHYLAXIS On SCDs CODE STATUS FULL CODE Current Inpatient Medications: Current Inpatient Medications Medications (Trade) Dose Ordered Sig/Herbert Route Start Time Stop Time Status Last Admin Dose Admin Ioversol (Optiray 320) 125 ml UD PRN IV 09/11/17 11:15 09/15/17 11:14 Acetaminophen (Tylenol Tab) 650 mg Q4H PRN PO 09/11/17 13:15 10/11/17 13:14 09/13/17 00:45 650 MG Ondansetron HCl (Zofran Inj) 4 mg Q6H PRN IV 09/11/17 13:15 10/11/17 13:14 Nitroglycerin (Nitrostat Tab) 0.4 mg UD PRN SL 09/11/17 13:15 10/11/17 13:14 Magnesium Hydroxide (Milk Of Magnesia Susp) 30 ml Q12H PRN PO 09/11/17 14:00 10/11/17 13:59 Polyethylene (Miralax Powder Packet) 17 gm DAILY PRN PO 09/11/17 14:00 10/11/17 13:59 Alprazolam (Xanax Tab) 0.25 mg BID PRN PO 09/11/17 14:00 10/11/17 13:59 Alprazolam (Xanax Tab) 0.25 mg HS PO 09/11/17 21:00 10/11/17 20:59 09/12/17 21:26 0.25 MG Diltiazem HCl (TIAzac CAP) 240 mg DAILY PO 09/12/17 09:00 10/12/17 08:59 09/13/17 08:43 240 MG Acetaminophen/ Hydrocodone Bitart ([place] 5/325 Tab) 1 tab Q4 PRN PO 09/11/17 14:00 09/25/17 13:59 09/13/17 04:00 1 TAB Nystatin (Mycostatin Powder) 1 appln BID EXT 09/11/17 21:00 10/11/17 20:59 09/13/17 08:42 1 APPLN Sotalol HCl (Betapace Tab) 120 mg DAILY PO 09/12/17 09:00 10/12/17 08:59 09/13/17 08:42 120 MG Lidocaine (Lidoderm Patch 5%) 1 patch QAM TD 09/12/17 09:00 10/12/17 08:59 09/13/17 08:47 1 PATCH Miscellaneous (Remove Lidoderm Patch) 1 ea DAILY@21 N/A 09/11/17 21:00 10/11/17 20:59 09/11/17 20:49 1 EA Insulin Aspart (novoLOG ASPART) SLIDING SCALE If C... ACHS SC 09/11/17 16:00 10/11/17 15:59 09/13/17 12:44 6 UNITS Glucose (Glucose 40% Gel) 15-30 GRAMS 15 GRAMS... UD PRN PO 09/11/17 14:15 10/11/17 14:14 Glucose (Glucose Chew Tab) 4-8 Tablets 4 Tabl... UD PRN PO 09/11/17 14:15 10/11/17 14:14 Dextrose (Dextrose 50% 50ML Syringe) 25-50ML OF 50% DW IV FOR... UD PRN IV 09/11/17 14:15 10/11/17 14:14 Glucagon (Glucagon Inj) 1 mg UD PRN SQ 09/11/17 14:15 10/11/17 14:14 Miscellaneous Information (Consult Glycemic Management Pharmacy) 1 ea UD N/A 09/11/17 14:11 10/11/17 14:10 Insulin Glargine (Lantus Solostar Pen) 26 units DAILY SC 09/14/17 09:00 10/14/17 08:59
--- NOTE | 2017-09-13 17:08 | Orthopedic Progress Note ---
Orthopedic Progress Note Date of Service Sep 13, 2017. Subjective Additional Notes: Pt sitting in recliner chair tonight. States she had a better day today. She was able to ambulate with PT today without much pain in her groin or knee. Currently c/o the brace cutting into her skin at the distal portion of the brace. States that she has better sensation in the LE today. Objective [place] brace on. Knee swollen but not tense. Area noted on the distal portion of the brace strap that was cutting into her skin and causing pain. Small gauze placed in around the brace strap to help with discomfort with good results. Date Time Temp Pulse Resp B/P (MAP) Pulse Ox O2 Delivery O2 Flow Rate FiO2 09/13/17 16:13 36.9 62 16 120/62 (81) 96 Room Air 09/13/17 16:00 96 Room Air 09/13/17 15:12 77 97 09/13/17 12:39 Room Air 09/13/17 11:36 36.8 62 18 118/64 (82) 95 09/13/17 08:04 36.9 70 16 145/72 (96) 98 Nasal Cannula 09/13/17 08:00 Room Air 09/13/17 04:15 36.3 67 20 122/57 (78) 98 Room Air 09/13/17 04:00 Room Air 09/12/17 23:59 Room Air 09/12/17 23:55 37.3 71 20 104/60 (75) 98 Room Air 09/12/17 20:00 Room Air 09/12/17 19:28 36.6 78 18 141/90 (107) 97 Room Air Laboratory Results 24 Hours: Test 09/12/17 20:09 09/13/17 05:50 Hematocrit 27.1 % 25.1 % Hemoglobin 9.1 g/dL 8.4 g/dL Assessment & Plan Assessment: R Thigh hematoma, radiculopathy L2/L3/L4, r/o lumbar pathology vs local compression secondary to thigh hematoma, Plan: Pt improving overall. Will consult Satish Gonzalez from orthotics to check the brace and see if there is a better way to pad the brace distally. Pt may have the brace off in bed but discussed that if she needed to get up to ambulate in a hurry, that she might want to learn to sleep with the brace on. She seems to understand the risks if she does not use the brace to get to the BSC. US of the Quad tendon negative for disruption. Ok for PT to do gentle ROM of the knee at this time but still needs to have brace locked in extension for ambulation.
[2017-09-13] MEDS: ALPRAZOLAM 0.25 MG TAB PO SCH (20:44)
[2017-09-14] MEDS: ACETAMINOPHEN 325 MG TAB PO PRN (00:19)
[2017-09-14 03:30] VITALS: BP 125/63; PULSE 68; TEMP 36.7; O2SAT 98
[2017-09-14 06:30] LABS: HEMATOCRIT 26.2 % (37-47); HEMOGLOBIN 8.7 g/dL (12.0-16.0); MEAN CELL VOLUME 96.3 fL (80-100); MEAN CORPUSCULAR HGB CONC 33.2 g/dl (32-36); MEAN PLATELET VOLUME 8.8 fL (7.4-10.4); NUCLEATED RED BLOOD CELL ABS 0.03 K/uL (0-0); PLATELET COUNT 153 K/uL (130-400); RED CELL DISTRIBUTION WIDTH CV 20.8 % (11.5-14.5); RED CELL DISTRIBUTION WIDTH SD 68.7 fL (36.4-46.3); WHITE BLOOD COUNT 5.37 K/uL (4.8-10.8)
[2017-09-14 08:25] VITALS: BP 129/68; PULSE 87; TEMP 36.8; O2SAT 95
[2017-09-14] MEDS ORDERED: INSULIN GLARGINE SOLOSTAR 100 UNITS/ML 3 ML PEN SC SCH (09:00)
--- NOTE | 2017-09-14 09:23 | Pharmacy Progress Note ---
Pharmacy Glycemic Short Note 2 Date of Service Sep 14, 2017. OUTPATIENT ANTIDIABETIC REGIMEN: * Lantus 30-40 units SQ daily * NovoLog per scale - 0-12 units based on BSG ASSESSMENT: * 82yo diabetic female with poor outpatient control per recent A1c of 11.3% in 07/2017. * Goal A1c based on age/co-morbidities is ~ 8-9% * Pt admitted with moderate-severe hyperglycemia per ED labs/PRP. GLU = 311 mg/ dl * CDE spoke with pt earlier this week regarding outpatient control * BSG management deteriorated due to outpatient steroid injections * Over the past 24 hours, BSGs ranged 136-234 mg/dL * Pt received 27 units of basal insulin yesterday * Fasting BSG today = 123 mg/dL this AM - continue with current basal regimen and reevaluate tomorrow * Tighten CF/CR due to lack of control throughout the day yesterday * Lunch BSG = 252 mg/dL - pt ate breakfast late - Novolog given at 1010 and lunch BSG taken at 1121 PLAN FOR INPATIENT GLYCEMIC CONTROL: * Basal insulin: Continue * Lantus 26 units SQ AM * Bolus insulin: Tighten * NovoLog per scale ACHS or Q6hrs while NPO * Goal Range: Low 110 mg/dL - High 150 mg/dL * Correction Factor: 20 mg/dL/unit * Nutritional / Prandial insulin per carb ratio of 1 unit per 7 grams CHO consumed PLAN FOR DISCHARGE: * Pt getting steroid injections as outpatient which has caused poor glycemic control * If plan for further steroids - may need to come up with a change to regimen * Further dosing TBD based on discharge plans * Please note that the plan above was derived based on current level of insulin resistance and hospital stress. These recommendations are appropriate for inpatient admission only. Plan of care upon discharge will need to be reassessed to avoid potential outpatient hypo/hyperglycemia. Thank you.
[2017-09-14] MEDS ORDERED: SOD PHOSPHATE/SOD BIPHOSPHATE ENEMA 132 ML BTL ONE (09:47)
[2017-09-14] MEDS: INSULIN ASPART 100 UNITS/ML 3 ML PEN SC SCH ×3 (10:10→16:15)
[2017-09-14] MEDS: SOTALOL HCL 80 MG TAB PO SCH (10:12)
[2017-09-14] MEDS: DILTIAZEM HCL 120 MG EXT REL CAP PO SCH (10:13)
[2017-09-14] MEDS: NYSTATIN POWDER 15GM BTL EXT SCH (10:13)
[2017-09-14] MEDS: LIDODERM (LIDOCAINE) PATCH 5% TD SCH (10:13)
[2017-09-14] MEDS ORDERED: NURSING VERBAL MED ORDER ONE (11:00)
[2017-09-14 11:43] VITALS: BP 129/76; PULSE 86; TEMP 36.8; O2SAT 95
[2017-09-14 13:43] VITALS: BP 129/76; PULSE 86; TEMP 36.8; O2SAT 95
[2017-09-14 15:25] VITALS: BP 102/62; PULSE 64; TEMP 36.6; O2SAT 98
--- NOTE | 2017-09-14 16:17 | Progress Note ---
Medicine Progress Note Date & Time of Visit: Sep 14, 2017 at 11:04. Subjective Pt was seen and examined Sitting in bed with no distress Pt said that she feels better she said that she does not have any tenderness in her right groin area she said the pain in the right knee slightly improves she said that she had a large bowel movement today denies any chest pain, palpitation, dizziness and SOB Objective Last 8 Hrs Date Time Temp Pulse Resp B/P (MAP) Pulse Ox O2 Delivery O2 Flow Rate FiO2 09/14/17 15:25 36.6 64 20 102/62 (75) 98 Room Air 09/14/17 13:43 36.8 86 18 95 Room Air 09/14/17 12:04 Room Air 09/14/17 11:43 36.8 86 18 129/76 (93) 95 09/14/17 08:25 36.8 87 18 129/68 (88) 95 Physical Exam: General- No acute distress Head- atraumatic Eyes- PERRL, EOMI ENT- oropharynx clear Neck- supple, no JVD Lungs- No wheezing Heart- regular rhythm Abdomen- normal bowel sounds, soft Extremities- no calf tenderness,+B/L LE edema, + brace in right knee Neuro- alert, oriented x 3; PERRL Skin- warm & dry Laboratory Results: Last 24 Hours Test 09/13/17 20:36 09/14/17 05:54 09/14/17 06:23 09/14/17 11:21 Bedside Glucose 205 mg/dl 123 mg/dl 252 mg/dl White Blood Count 5.37 K/uL Red Blood Count 2.72 M/uL Hemoglobin 8.7 g/dL Hematocrit 26.2 % Mean Corpuscular Volume 96.3 fL Mean Corpuscular Hemoglobin 32.0 pg Mean Corpuscular Hemoglobin Concent 33.2 g/dl RDW Standard Deviation 68.7 fL RDW Coefficient of Variation 20.8 % Platelet Count 153 K/uL Mean Platelet Volume 8.8 fL Nucleated RBC Absolute Count (auto) 0.03 K/uL Nucleated Red Blood Cells % 0.5 % Assessment & Plan ANEMIA Present with Hgb on admission 6.1 Possible related to R thigh hematoma Recently had a fall on right side about [address] showed moderate to large intramuscular hematoma of the right rectus femoris musculature and possibly also involving the vastus intermedius, Received 2 units PRBC Hbg improved from 8.4 to 8.7 Continue holding anticoagulant for now Continue monitor cbc Transfused if hg drops below 8 HEMATOMA R PELVIS AND R THIGH CT ABD/PELVIS showed lightly decreased size of intramuscular hematoma involving the right iliacus and iliopsoas musculature demonstrating surrounding edema. Moderate to large intramuscular hematoma of the right rectus femoris musculature and possibly also involving the vastus intermedius. Ortho and surgery on board, No surgical intervention at this time recommended conservative treatment at this time. Right LE u/s showed soft tissue hematomas previously described are unchanged Hbg stable Pain resolved Continue monitor repeat u/s within with week for resolution PT/OT LLE DVT/ PE hx DVT and PE dx 08/19/17. S/P ivc filter hold lovenox at this time heme/onc on board recommended to continue holding anticoagulant If her Hbg stable in the next few days, consider to restart lovenox at a lower dose Pt understands the risk of being off anticoagulant such as blood clot Also understands the risk being on anticoagulant such bleeding Follow up with hematology dr. Calloway on 09/16 RIGHT KNEE PAIN/Swelling Continue Knee brace as per ortho Right knee xray showed large dense right knee joint effusion Case discussed with Ortho Dr. Martel No plan for knee aspiration at this time Recommended to continue wearing the knee brace mostly while ambulating Encourage pt to work ROM of the knee during PT PT/OT continue lidocaine patch LUNG NODULES CT showed multiple pulmonary nodules of the lung bases are again seen, largest of which measures 1.2 cm within the inferior segment lingula Continue outpatient management A-FIB s/p ablation. Rate Controlled Continue Diltazem and sotalol HYPONATREMIA Na 137 yesterday Stable DANIELLE Creatine on admission 1.3 -follow renal functions -avoid nephrotoxic agents when possible Resolved INSULIN DEPENDENT DM II -sliding scale and lantus -glycemic consult ANXIETY -continue alprazolam ESSENTIAL TREMOR on propranolol. DVT PROPHYLAXIS On SCDs CODE STATUS FULL CODE DISPOSITION Will discharge to rehab today Follow appt with Dr. Calloway on 09/[address] Daniel at [facility] Consultants: Ortho Hematology Current Inpatient Medications: Current Inpatient Medications Medications (Trade) Dose Ordered Sig/Herb[place] Route Start Time Stop Time Status Last Admin Dose Admin Ioversol (Optiray 320) 125 ml UD PRN IV 09/11/17 11:15 09/15/17 11:14 Acetaminophen (Tylenol Tab) 650 mg Q4H PRN PO 09/11/17 13:15 10/11/17 13:14 09/14/17 00:19 650 MG Ondansetron HCl (Zofran Inj) 4 mg Q6H PRN IV 09/11/17 13:15 10/11/17 13:14 Nitroglycerin (Nitrostat Tab) 0.4 mg UD PRN SL 09/11/17 13:15 10/11/17 13:14 Magnesium Hydroxide (Milk Of Magnesia Susp) 30 ml Q12H PRN PO 09/11/17 14:00 10/11/17 13:59 Polyethylene (Miralax Powder Packet) 17 gm DAILY PRN PO 09/11/17 14:00 10/11/17 13:59 09/13/17 17:58 17 GM Alprazolam (Xanax Tab) 0.25 mg BID PRN PO 09/11/17 14:00 10/11/17 13:59 Alprazolam (Xanax Tab) 0.25 mg HS PO 09/11/17 21:00 10/11/17 20:59 09/13/17 20:44 0.25 MG Diltiazem HCl (TIAzac CAP) 240 mg DAILY PO 09/12/17 09:00 10/12/17 08:59 09/14/17 10:13 240 MG Acetaminophen/ Hydrocodone Bitart ([place] 5/325 Tab) 1 tab Q4 PRN PO 09/11/17 14:00 09/25/17 13:59 09/13/17 04:00 1 TAB Nystatin (Mycostatin Powder) 1 appln BID EXT 09/11/17 21:00 10/11/17 20:59 09/14/17 10:13 1 APPLN Sotalol HCl (Betapace Tab) 120 mg DAILY PO 09/12/17 09:00 10/12/17 08:59 09/14/17 10:12 120 MG Lidocaine (Lidoderm Patch 5%) 1 patch QAM TD 09/12/17 09:00 10/12/17 08:59 09/14/17 10:13 1 PATCH Miscellaneous (Remove Lidoderm Patch) 1 ea DAILY@21 N/A 09/11/17 21:00 10/11/17 20:59 1/17/18 20:44 1 EA Insulin Aspart (novoLOG ASPART) SLIDING SCALE If C... ACHS SC 09/11/17 16:00 10/11/17 15:59 09/14/17 12:39 10 UNITS Glucose (Glucose 40% Gel) 15-30 GRAMS 15 GRAMS... UD PRN PO 09/11/17 14:15 10/11/17 14:14 Glucose (Glucose Chew Tab) 4-8 Tablets 4 Tabl... UD PRN PO 09/11/17 14:15 10/11/17 14:14 Dextrose (Dextrose 50% 50ML Syringe) 25-50ML OF 50% DW IV FOR... UD PRN IV 09/11/17 14:15 10/11/17 14:14 Glucagon (Glucagon Inj) 1 mg UD PRN SQ 09/11/17 14:15 10/11/17 14:14 Miscellaneous Information (Consult Glycemic Management Pharmacy) 1 ea UD N/A 09/11/17 14:11 10/11/17 14:10 Insulin Glargine (Lantus Solostar Pen) 26 units DAILY SC 09/14/17 09:00 10/14/17 08:59 09/14/17 10:11 26 UNITS Propranolol HCl (Inderal Tab) 20 mg QAM PO 09/15/17 09:00 10/15/17 08:59
[2017-09-14] MEDS ORDERED: HYDR-5688 PO (16:24)
--- NOTE | 2017-09-14 16:49 | Discharge Instructions ---
Discharge Instructions Date of Service Sep 14, 2017. Admission Reason for Admission: Anemia,Hematoma Discharge Discharge Diagnosis / Problem: Anemia, HEMATOMA R PELVIS AND R THIGH, Uncontrolled DM, Lung nodules Discharge Goals Goal(s): Decrease discomfort, Improve function, Increase independence, Improve disease control Activity Recommendations Activity Limitations: resume your previous activity (as tolerated) . Instructions / Follow-Up Instructions / Follow-Up Discharge to [facility] Follow up appointment with hematology Dr. Calloway on 09/16 Follow up with orthopedic between 1 -2 weeks Continue holding lovenox for now until hematoma resolves and hemoglobin stable Avoid any NSAID for now (naproxen, aleve, ibuprofen, motrin, ...) Check CBC between 2 to 5 days, then monitor after restarting Lovenox Repeat U/S of the right lower extremity within 1 week to monitor for the hematoma Continue wearing knee brace daily Work ROM during physical therapy Continue physical therapy and occupational therapy Fall precaution Continue monitor blood sugar Please follow a healthy diet and limiting sugar intake Current Hospital Diet Patient's current hospital diet: Diabetes Type 2 Diet, AHA Diet (Heart Healthy) Discharge Diet Recommended Diet: AHA Diet (Heart Healthy), Diabetes Type 2 Diet Pending Studies Studies pending at discharge: no Laboratory Results Hemoglobin A1c Test 08/22/17 04:37 Range/Units Estimated Average Glucose 278 mg/dl Hemoglobin A1c 11.3 H 4.5-5.6 % Medical Emergencies . Who to Call and When: Medical Emergencies: If at any time you feel your situation is an emergency, please call 911 immediately. . Non-Emergent Contact Non-Emergency issues call your: Primary Care Provider Call Non-Emergent contact if: you have any medication questions . . "Provider Documentation" section prepared by Sherlyn Cervantes. . VTE Core Measure Inpt VTE Proph given/why not?: Nigel [facility] Drug Monitoring Program Search Results: no issues identified
[2017-09-15] MEDS ORDERED: PROPRANOLOL HCL 20 MG TAB PO SCH (09:00)
--- NOTE | 2017-09-18 00:51 | Discharge Summary ---
Discharge Summary Date of Service Sep 18, 2017. Discharge Summary Admission Date: Sep 11, 2017 at 13:21 Discharge Date: Sep 14, 2017 Discharge Disposition: Rehab Principal Diagnosis: Anemia Secondary Diagnoses/Problems: HEMATOMA R PELVIS AND R THIGH Uncontrolled DM Lung nodules HX LLE DVT/ PE RIGHT KNEE PAIN/Swelling HYPONATREMIA DANIELLE AFIB ANXIETY ESSENTIAL TREMOR Procedures: R EXTREMITY NONVASCULAR LIMITED CLINICAL HISTORY: Fall, inability to extend knee, r/o quad tendon rupture. Trauma. Pain. TECHNIQUE: Ultrasound COMPARISON STUDY: None FINDINGS: The suprapatellar tendon and quadriceps tendon appears intact. Of the hematoma appears described are unchanged IMPRESSION: 1. The suprapatellar tendon is intact. 2. Soft tissue hematomas previously described are unchanged The above report was generated using voice recognition software. It may contain grammatical, syntax or spelling errors. Electronically signed by: Darius James M.D. 09/12/2017 7:37 PM ABDOMEN AND PELVIS CT WITH IV CONTRAST CT DOSE: 445.08 mGy.cm HISTORY: Follow-up study in a patient with right iliac is an iliopsoas hematoma. did have prior hematoma ?2/2 IVC placement, low hgb TECHNIQUE: Multiaxial CT images of the abdomen and pelvis were performed following the use of intravenous contrast. A dose lowering technique was utilized adhering to the principles of ALARA. COMPARISON STUDY: CT abdomen and pelvis 08/27/2017. FINDINGS: Multiple pulmonary nodules of the lung bases are again seen, largest of which measures 1.2 cm within the inferior segment lingula. Partially imaged lobulated nodule of the right middle lobe measures 1.0 cm. There are multiple tree-in-bud nodules throughout the bilateral lung bases. No pneumatosis or pneumoperitoneum identified. Imaged inferior cardiac chambers are mildly enlarged with coronary arterial disease. Pacer leads overlie the right heart chambers. Increased attenuation of the fundal gallbladder suggests adenomyomatosis. The spleen, liver, pancreas and right adrenal gland are unremarkable. There is nodular thickening of the left adrenal gland suggesting hyperplasia. Multifocal cortical thinning of the bilateral kidneys is noted with areas of parenchymal scarring. 9 mm nonobstructing calculus of the inferior pole right kidney. Low attenuating lesions of the bilateral kidneys suggests renal cysts, largest of which measures 2.8 cm on the left. The urinary bladder is unremarkable. Prior hysterectomy. Indeterminate area of increased attenuation is noted posterior to the central bladder 4 mm which is unchanged. Moderate atherosclerosis of the aorta. No bulky adenopathy identified. Infrarenal IVC filter is noted. Decreased size of the IVC thrombus is noted on image 192 series 3. Thrombus is again seen within the left common, superficial femoral and profunda femoris veins. Intramuscular hematoma of the right iliacus musculature extending into the iliopsoas is again seen measuring up to 7.2 x 5.5 cm in AP and transverse dimension, previously measuring 8.4 x 6.3 cm. Edema is again noted surrounding the hematoma and also extensively noted throughout the imaged right thigh. Intramuscular hematoma is also noted within the right rectus femoris musculature measuring up to 2.8 x 3.6 cm and possibly also involving the vastus intermedius musculature. This was not imaged on prior study. Mild nodularity of the lower anterior abdominal wall subcutaneous tissues suggest possible injection granulomas. Bones appear osteoporotic. Multilevel changes of the spine, most pronounced at L4-L5 and L5-S1. Levoscoliosis of the lumbar spine also noted. IMPRESSION: 1. Slightly decreased size of intramuscular hematoma involving the right iliacus and iliopsoas musculature demonstrating surrounding edema. Additionally, there is a moderate to large intramuscular hematoma of the right rectus femoris musculature and possibly also involving the vastus intermedius, only partially imaged. 2. Slightly decreased size of thrombus within the IVC with persistent thrombus noted within the left common femoral, superficial femoral and profunda femoris veins. Infrarenal IVC filter in place. 3. Additional findings as above. Electronically signed by: Yunior Duarte M.D. 09/11/2017 11:57 AM Dictated Date/Time: 09/11/2017 11:45 AM Consultations: Ortho Hematology Medication Reconciliation Changed Medications: Hydrocodone/Acetaminophen 5MG/325MG ([place] 5MG/325MG) Tab 1 TABLET PO Q8 PRN for Pain, #10 (Changed from: Q4) PAIN SCALE 4-6 Continued Medications: Acetaminophen (Tylenol) 500 Mg Tab 500 MG PO Q4 PRN for Pain Alprazolam (Xanax) 0.25 Mg Tab 0.25 MG PO BID PRN for Anxiety Alprazolam (Xanax) 0.25 Mg Tab 0.25 MG PO HS Bisacodyl (Bisac-Evac) 10 Mg Supp 10 MG PO DAILY PRN for Constipation Dextrose (Diabetic Use) (Glucose) 40 % Gel 1 APPLN PO PRN PRN for HYPOGLYCEMIA Diltiazem Hcl Ext Rel (Tiazac) 120 Mg Capcr 240 MG PO DAILY TWO 120 MG CAPSULES DAILY Docusate Sodium (Colace) 100 Mg Cap 100 MG PO BID PRN for Constipation Glucagon (Glucagon Emergency Kit) 1 Mg Kit 1 DOSE INJ UD PRN for Hypoglycemia Protocol Insulin Aspart (Novolog) 100 Units/Ml Inj SC UD SLIDING SCALE; ACHS LESS THAN 70 = HYPOGLYCEMIA PROTOCOL 70-130 = 0 UNITS 131-180 = 2 UNITS 181-240 = 4 UNITS 241-300 = 6 UNITS 301-350 = 8 UNITS 351-400 = 10 UNITS GREATER THAN 400 = 12 UNITS; CALL MD. Insulin Glargine (Lantus Solostar) 100 Unit/Ml Inj 30-40 UNITS SC DAILY Lidocaine (Lidocaine) 1 Patch Tdsy 1 PATCH TOP QAM RIGHT KNEE Magnesium Hydroxide (Milk Of Magnesia) 30 Ml Susp 30 ML PO DAILY PRN for Constipation Nystatin (Topical) (Nyata) 100,000 Unit/Gm Pow 1 APPLN TOP BID to abdomen Polyethylene Glycol 3350 (Miralax) 1 Pow Pow 17 GM PO DAILY PRN for Constipation Propranolol (Inderal) 20 Mg Tab 20 MG PO DAILY Senna/Docusate Sod (Senokot S) 1 Tab Tab 1 TAB PO DAILY AT LUNCH Sodium Phosphate/Biphosphate (Fleet Enema) Lana 1 DOSE MO DAILY PRN for Constipation Sotalol HCl (Sotalol HCl) 80 Mg Tab 120 MG PO DAILY 1.5 OF AN 80 MG TABLET Discontinued Medications: Enoxaparin (Lovenox) Unknown Strength Inj 70 MG SQ BID LOVENOX 70 MG (0.7 ML) Hydrocodone/Acetaminophen 5MG/325MG ([place] 5MG/325MG) Tab 2 TABLETS PO Q4 PRN for Pain PAIN SCALE 7-10 Admission Information HPI (per Admitting provider): Pt is 82 y/o F with PMH HTN, a-fib s/p ablations, pacemaker, DM II presented to ER with c/o anemia. Pt with recent hx DVT LLE, PE and hospitalized in this facility on 08/19/17- was on coumadin and heparin. Hx IVC filter placed 08/23/17. She was in [facility] [place]/27/17-09/04/17 for anemia and R pelvic and R LE intramuscular hematoma. Pt's hgb remained stable after initial transfusion. Conservative approach with observation. Pt developed RLE weakness and loss sensation, seen by ortho and had myelogram CT and recommend observation. Pt was sent to [facility] and on Lovenox. Hx fall to right knee last week and seen by ortho and given brace to help with ambulation. Pt states still with R knee pain and R groin pain using norco for discomfort with moderate relief. States R knee with slightly less edema than last week. Reports left leg less swollen than it was previous. Denies extremity erythema. Pt reports past couple of days with dizziness, weakness and hasn't been able to do therapy at [facility]. Reports vomited once 4 days ago from the norco, no further vomiting. Denies fever/chills, diaphoresis, hematochezia, melena, hematemesis, diarrhea, constipation, CUEVAS, syncope, vision changes, neck pain, CP, SOB, orthopnea, palpitations, cough, sore throat, choking, otalgia, rhinorrhea, urinary symptoms. In ER heme negative stool. Afebrile, P: 78, R: 16, BP:117/55, 93/43. Today Hgb: 6.1 (was 9.1 on 09/03/17). Na:130, gluc: 311. Cr: 1.3 (was 0.9 on 09/01/17). EKG: atrial paced, rate 64, CXR: no consolidation/pleural effusion. CT ABD/PELVIS: Slightly decreased size of intramuscular hematoma involving the right iliacus and iliopsoas musculature demonstrating surrounding edema. moderate to large intramuscular hematoma of the right rectus femoris musculature and possibly also involving the vastus intermedius. Slightly decreased size of thrombus within the IVC with persistent thrombus noted within the left common femoral, superficial femoral and profunda femoris veins. Infrarenal IVC filter in place. Pt type and cross and 2 units PRBC transfusing Physical Exam (per Admitting): General Appearance: WD/WN, no apparent distress, + pertinent finding (pale) Head: normocephalic, atraumatic Eyes: PERRL, EOMI, sclerae normal, + pertinent finding (pale conjunctiva) ENT: hearing grossly normal, pharynx normal, + pertinent finding (mucous membranes moist) Neck: supple, no JVD, trachea midline Respiratory/Chest: chest non-tender, lungs clear, normal breath sounds, no respiratory distress, no accessory muscle use Cardiovascular: regular rate, rhythm, no murmur, normal peripheral pulses Abdomen/GI: normal bowel sounds, soft, + pertinent finding (tender to palpation lower abdomen without rebound or guarding) Back: no CVA tenderness Extremities/Musculoskelatal: + pertinent finding (arms without edema, erythema, tenderness to palpation and ROM intact. LLE mild edema, soft, non- tender, ROM intact. R knee +edema and tenderness to palpation with ecchymosis, limited flexion of knee. R leg soft, sensation to R LE intact. distal pulses intact, brisk capillary refill) Neurologic/Psych: alert, normal mood/affect, oriented x 3 Skin: warm/dry, + pertinent finding (pale, abdominal fold erythema) Hospital Course ANEMIA Present with Hgb on admission 6.1 Possible related to R thigh hematoma Recently had a fall on right side about [address] showed moderate to large intramuscular hematoma of the right rectus femoris musculature and possibly also involving the vastus intermedius, Received 2 units PRBC Hbg improved from 8.4 to 8.7 Continue holding anticoagulant for now Continue monitor cbc Transfused if hg drops below 8 HEMATOMA R PELVIS AND R THIGH CT ABD/PELVIS showed lightly decreased size of intramuscular hematoma involving the right iliacus and iliopsoas musculature demonstrating surrounding edema. Moderate to large intramuscular hematoma of the right rectus femoris musculature and possibly also involving the vastus intermedius. Ortho and surgery on board, No surgical intervention at this time recommended conservative treatment at this time. Right LE u/s showed soft tissue hematomas previously described are unchanged Hbg stable Pain resolved Continue monitor repeat u/s within with week for resolution PT/OT LLE DVT/ PE hx DVT and PE dx 08/19/17. S/P ivc filter hold lovenox at this time heme/onc on board recommended to continue holding anticoagulant If her Hbg stable in the next few days, consider to restart lovenox at a lower dose Pt understands the risk of being off anticoagulant such as blood clot Also understands the risk being on anticoagulant such bleeding Follow up with hematology dr. Calloway on 09/16 RIGHT KNEE PAIN/Swelling Continue Knee brace as per ortho Right knee xray showed large dense right knee joint effusion Case discussed with Ortho Dr. Martel No plan for knee aspiration at this time Recommended to continue wearing the knee brace mostly while ambulating Encourage pt to work ROM of the knee during PT PT/OT continue lidocaine patch LUNG NODULES CT showed multiple pulmonary nodules of the lung bases are again seen, largest of which measures 1.2 cm within the inferior segment lingula Continue outpatient management A-FIB s/p ablation. Rate Controlled Continue Diltazem and sotalol HYPONATREMIA Na 137 yesterday Stable DANIELLE Creatine on admission 1.3 -follow renal functions -avoid nephrotoxic agents when possible Resolved INSULIN DEPENDENT DM II -sliding scale and lantus -glycemic consult ANXIETY -continue alprazolam ESSENTIAL TREMOR on propranolol. DVT PROPHYLAXIS On SCDs CODE STATUS FULL CODE DISPOSITION Will discharge to rehab today Follow appt with Dr. Calloway on 09/[address] Daniel at [facility] Total time spent on discharge = 35MINU This includes examination of the patient, discharge planning, medication reconciliation, and communication with other providers. Discharge Instructions Discharge Instructions Date of Service Sep 14, 2017. Admission Reason for Admission: Anemia,Hematoma Discharge Discharge Diagnosis / Problem: Anemia, HEMATOMA R PELVIS AND R THIGH, Uncontrolled DM, Lung nodules Discharge Goals Goal(s): Decrease discomfort, Improve function, Increase independence, Improve disease control Activity Recommendations Activity Limitations: resume your previous activity (as tolerated) . Instructions / Follow-Up Instructions / Follow-Up Discharge to [facility] Follow up appointment with hematology Dr. Calloway on 09/16 Follow up with orthopedic between 1 -2 weeks Continue holding lovenox for now until hematoma resolves and hemoglobin stable Avoid any NSAID for now (naproxen, aleve, ibuprofen, motrin, ...) Check CBC between 2 to 5 days, then monitor after restarting Lovenox Repeat U/S of the right lower extremity within 1 week to monitor for the hematoma Continue wearing knee brace daily Work ROM during physical therapy Continue physical therapy and occupational therapy Fall precaution Continue monitor blood sugar Please follow a healthy diet and limiting sugar intake Current Hospital Diet Patient's current hospital diet: Diabetes Type 2 Diet, AHA Diet (Heart Healthy) Discharge Diet Recommended Diet: AHA Diet (Heart Healthy), Diabetes Type 2 Diet Pending Studies Studies pending at discharge: no Laboratory Results Hemoglobin A1c Test 08/22/17 04:37 Range/Units Estimated Average Glucose 278 mg/dl Hemoglobin A1c 11.3 H 4.5-5.6 % Medical Emergencies . Who to Call and When: Medical Emergencies: If at any time you feel your situation is an emergency, please call 911 immediately. . Non-Emergent Contact Non-Emergency issues call your: Primary Care Provider Call Non-Emergent contact if: you have any medication questions . . "Provider Documentation" section prepared by Sherlyn Cervantes. . VTE Core Measure Inpt VTE Proph given/why not?: Nigel [facility] Drug Monitoring Program Search Results: no issues identified Additional Copies To Layton Mejia Paul, M.D.
== END 2017-09-14 17:00 | DRG 812 ==
LOC: EDBD 09:45 → C.EDB 09:48 → C.2T 13:21 → ENRESERV 14:06
PROVIDERS: ADMIT Internal Medicine; ATTEND Internal Medicine
DX: D64.9 Anemia, unspecified (principal); E87.1 Hypo-osmolality and hyponatremia; N17.9 Acute kidney failure, unspecified; S70.11XA Contusion of right thigh, initial encounter; I11.0 Hypertensive heart disease with heart failure; E11.9 Type 2 diabetes mellitus without complications; I50.9 Heart failure, unspecified; I48.91 Unspecified atrial fibrillation; E78.5 Hyperlipidemia, unspecified; E03.9 Hypothyroidism, unspecified; G25.0 Essential tremor; F41.9 Anxiety disorder, unspecified; R91.8 Other nonspecific abnormal finding of lung field; M25.461 Effusion, right knee; Z79.01 Long term (current) use of anticoagulants; Z79.4 Long term (current) use of insulin; Z79.899 Other long term (current) drug therapy; Z88.1 Allergy status to other antibiotic agents; W19.XXXA Unspecified fall, initial encounter; Z95.0 Presence of cardiac pacemaker; Z86.711 Personal history of pulmonary embolism; Z86.718 Personal history of other venous thrombosis and embolism

== ENCOUNTER → 2017-09-20 | Outpatient (CLI) | payer OTHER, MEDICARE ==
[~2017-09-20] MED LIST changes: -BISA10SU7 PR; +BTP80 PO; -DILT-115 PO; +DILT120C68 PO; +DLCS PO; -ENOX80IN SQ; +GLGKIT INJ; -GLGKIT SC; +HYDR-5688 PO; -INSDGI SC; +INSDGIPEN SC; +LDDP5 TOP; +NVLG SC; -NVLG SQ; +NYST-19 TOP; -OXYC1TAB3 PO; +PROP20TA67 PO; -SOTA120T PO
--- NOTE | 2017-09-20 17:03 | DIAGNOSTIC IMAGING REPORT ---
RIGHT GROIN/THIGH ULTRASOUND CLINICAL HISTORY: Right thigh hematoma. COMPARISON STUDY: Right groin ultrasound September 11, [address] of the abdomen and pelvis September 11, 2017. FINDINGS: Note is made of a mildly complex right groin fluid collection that measures 9.1 x 2 x 4 cm. Complexity has diminished since exam of September 11, 2017. Size is similar to prior exam. Within the anterior medial right thigh, abutting the femur, note is made of an elongated 30 x 3.9 x 6.1 cm fluid collection, likely intramuscular in location. This previously measured 23.6 x 5.6 x 6.3 cm. Complexity has diminished. This favors an evolving hematoma as well. IMPRESSION: Right groin and anterior medial right thigh fluid collections, as described above. Complexity of these collections has diminished since exam of September 11, 2017 which favors expected evolution of hematomas. The anteromedial thigh collection has slightly increased in size. However; overall, the findings suggest resolving hematomas. Electronically signed by: Fernando Gabriel M.D. 09/20/2017 5:02 PM Dictated Date/Time: 09/20/2017 4:45 PM
== END | disposition home or self-care (01) ==
LOC: C.ULTR 14:32
PROVIDERS: ATTEND Physical Medicine & Rehabilitation
DX: S70.11XA Contusion of right thigh, initial encounter (principal); X58.XXXA Exposure to other specified factors, initial encounter

== ENCOUNTER → 2017-10-30 | Outpatient (CLI) | payer OTHER, MEDICARE ==
[2017-10-30 10:47] LABS: BASO % 0.2 %; BASO ABS # 0.01 K/uL (0-0.2); EOS % 4.5 %; EOS ABS # 0.24 K/uL (0-0.5); HEMATOCRIT 41.4 % (37-47); HEMOGLOBIN 13.8 g/dL (12.0-16.0); IG# 0.02 K/uL (0.00-0.02); LYMPH % 22.4 %; LYMPH ABS # 1.19 K/uL (1.2-3.4); MEAN CELL VOLUME 95.6 fL (80-100); MEAN CORPUSCULAR HEMOGLOBIN 31.9 pg (25-34); MEAN CORPUSCULAR HGB CONC 33.3 g/dl (32-36); MEAN PLATELET VOLUME 9.6 fL (7.4-10.4); MONO ABS # 0.64 K/uL (0.11-0.59); NEUT % 60.5 %; NEUT ABS # 3.22 K/uL (1.4-6.5); PLATELET COUNT 204 K/uL (130-400); RED CELL DISTRIBUTION WIDTH CV 14.1 % (11.5-14.5); WHITE BLOOD COUNT 5.32 K/uL (4.8-10.8)
== END | disposition home or self-care (01) ==
LOC: C.LABSPEC 10:25
PROVIDERS: ATTEND Internal Medicine Hematology
DX: I82.409 Acute embolism and thrombosis of unspecified deep veins of unspecified lower extremity (principal); I26.99 Other pulmonary embolism without acute cor pulmonale; Z95.828 Presence of other vascular implants and grafts

== ENCOUNTER 2017-12-18 15:43 | Emergency (ER) | payer OTHER, MEDICARE ==
[~2017-12-18] VITALS: Ht 167.6 cm; Wt 68.0 kg
[2017-12-18 15:52] VITALS: TEMP 36.6; Ht 167.6 cm; Wt 68.0 kg
[2017-12-18] MEDS ORDERED: SODIUM CHLORIDE 0.9% 1000ML 500 ML IV STA (16:05)
[2017-12-18 16:25] VITALS: O2SAT 93
--- NOTE | 2017-12-18 16:34 | EMERGENCY ROOM VISIT NOTE ---
History Report prepared by Alix: Jorge Comer Under the Supervision of: Dr. Adolph Lewis M.D. First contact with patient: 15:57 Chief Complaint: FALL Stated Complaint: DEAN BACK ON HEAD- ON BLOOD THINNERS History of Present Illness The patient is a 82 year old female who presents to the Emergency Room with complaints of a head injury occurring just prior to arrival. She states that she was waiting to get on her bus to go to her orthopedic appointment (for previous right leg hematoma) when she lost her balance and fell. The patient states that she fell onto her right side. She states that she struck her head on the pavement. She did not lose consciousness. She currently complains of some neck pain. The patient states that she has felt "slow" and "shaky" all week. She states that she felt fatigued and weak this morning. She has a chronic right knee brace due to leg weakness. The patient states that her previous hematoma caused some nerve damage, and now her leg misael very easily. Her knee brace is locked straight to prevent these falls. She is on blood thinners for previous blood clots. The patient denies headache, chest pain , cough, fevers, nausea, or vomiting. She has a pacemaker in place. She notes that she recently began taking Metformin--this medication is causing her diarrhea. The patient also notes that her hair has been falling out easily recently. The patient's granddaughter notes that the patient has been hypoglycemic recently as well. Source of History: patient Onset: Just prior to arrival Position: head Quality: other (injury) Timing: other (episode) Associated Symptoms: + neck pain, + fatigue (this morning), + weakness ( this morning), No LOC, No headache, No cough, No chest pain, No nausea, No vomiting Note: Positive: feeling "slow" and "shaky" all week. Review of Systems See HPI for pertinent positives & negatives. A total of 10 systems reviewed and were otherwise negative. Past Medical & Surgical Medical Problems: (1) Anemia (2) Atrial fibrillation (3) CHF (congestive heart failure) (4) Diabetes mellitus, type 2 (5) Dyslipidemia (6) Essential tremor (7) Hematoma (8) Hypertension (9) Hypothyroidism (10) Osteoporosis Surgical Problems: (1) S/P IVC filter (2) Status post cardiac pacemaker procedure (3) Status post catheter ablation of atrial fibrillation (4) Status post hysterectomy (5) Status post right knee replacement (6) Status post tonsillectomy Family History COPD (chronic obstructive pulmonary disease) MOTHER Colon cancer BROTHER Congestive heart failure MOTHER Coronary artery disease MOTHER DVT BROTHER SISTER Lung cancer SISTER Social History Smoking Status: Never Smoker Alcohol Use: none Drug Use: none Housing Status: lives alone Occupation Status: retired Current/Historical Medications Scheduled Apixaban (Eliquis), 5 MG PO BID Atorvastatin (Lipitor), 20 MG PO DAILY Cephalexin Monohydrate (Keflex), 500 MG PO TID Diltiazem Hcl Coated Beads (Cartia Xt), 240 MG PO DAILY Escitalopram Oxalate (Escitalopram Oxalate), 10 MG PO DAILY Insulin Glargine (Lantus Solostar), 40 UNITS SC DAILY Insulin Lispro (Human) (Humalog Kwikpen), 1 DOSE SC DIRECTED Metformin Hcl Er (Glucophage Er), 500 MG PO BID Propranolol (Inderal), 20 MG PO DAILY Sotalol HCl (Sotalol HCl), Unknown Dose PO DAILY Scheduled PRN Acetaminophen (Tylenol), 500 MG PO Q4 PRN for Pain Alprazolam (Xanax), 0.25 MG PO BID PRN for Anxiety Allergies Coded Allergies: Levofloxacin (Verified Adverse Reaction, Mild, NAUSEA, 09/11/17) Propofol (Verified Adverse Reaction, Mild, NAUSEA, 08/27/17) Physical Exam Vital Signs Date Time Temp Pulse Resp B/P (MAP) Pulse Ox O2 Delivery O2 Flow Rate FiO2 12/18/17 17:44 75 24 137/74 97 Room Air 77 171/65 89 156/65 12/18/17 17:07 69 12/18/17 17:03 66 12/18/17 16:25 93 Room Air 12/18/17 15:52 36.6 67 18 131/62 93 Room Air Physical Exam GENERAL: Patient is in no acute distress. HEENT: Abrasion to the mid-posterior scalp. No hematoma or laceration. Mucous membranes are slightly dry. No facial trauma. No nasal congestion. NECK: No stridor, no adenopathy, no meningismus, trachea is midline. Diffusely tender about the posterior cervical spine. No step-offs. LUNGS: Clear to auscultation bilaterally, no wheeze, no rhonchi, breath sounds equal. HEART: Without murmurs gallops or rubs, regular rate and rhythm. ABDOMEN: Soft, nontender, bowel sounds positive, no hernias, no peritonitis. EXTREMITIES: No cyanosis or edema, no hip pain with movement, no signs for acute trauma. Knee immobilizer on the right leg. NEUROLOGIC: Oriented x 3, no acute motor or sensory deficits, no focal weakness. SKIN: No rash, no jaundice, no diaphoresis. Medical Decision & Procedures ER Provider Diagnostic Interpretation: Radiology results as stated below per my review and radiologist interpretation: HEAD WITHOUT CONTRAST (CT) Findings: The paranasal sinuses and mastoid air cells are clear. The calvarium and skull base are intact. The ventricles and sulci are within normal limits. There is no mass, hematoma, midline shift, or acute infarct. Impression: No acute intracranial abnormality. The above report was generated using voice recognition software. It may contain grammatical, syntax or spelling errors. Electronically signed by: Darius James M.D. 12/18/2017 5:[address] FINDINGS: No fractures. No subluxation. Prevertebral soft tissues and the C1-C2 interval are intact. No pneumothorax. Moderate to severe disc space narrowing at C6-C7. Focal indentation and sclerosis at the inferior endplate of C6. This is likely due to a chronic Schmorl's node. There is a moderate sized focal central disc protrusion at C4-C5. Small disc osteophyte complex at C6-C7. Diffusely enlarged thyroid goiter. IMPRESSION: No fractures within the cervical spine. Additional findings as described above. Electronically signed by: Javid Gil M.D. 12/18/2017 5:39 PM Laboratory Results 12/18/17 16:30 Red Blood Count 4.35, Mean Corpuscular Volume 92.4, Mean Corpuscular Hemoglobin 30.6, Mean Corpuscular Hemoglobin Concent 33.1, Mean Platelet Volume 9.5, Neutrophils (%) (Auto) 65.5, Lymphocytes (%) (Auto) 22.8, Monocytes (%) (Auto) 10.9, Eosinophils (%) (Auto) 0.4, Basophils (%) (Auto) 0.0, Neutrophils # (Auto ) 3.53, Lymphocytes # (Auto) 1.23, Monocytes # (Auto) 0.59, Eosinophils # (Auto ) 0.02, Basophils # (Auto) 0.00 12/18/17 16:30 Test 12/18/17 16:30 White Blood Count 5.39 K/uL (4.8-10.8) Red Blood Count 4.35 M/uL (4.2-5.4) Hemoglobin 13.3 g/dL (12.0-16.0) Hematocrit 40.2 % (37-47) Mean Corpuscular Volume 92.4 fL (80-100) Mean Corpuscular Hemoglobin 30.6 pg (25-34) Mean Corpuscular Hemoglobin Concent 33.1 g/dl (32-36) Platelet Count 176 K/uL (130-400) Mean Platelet Volume 9.5 fL (7.4-10.4) Neutrophils (%) (Auto) 65.5 % Lymphocytes (%) (Auto) 22.8 % Monocytes (%) (Auto) 10.9 % Eosinophils (%) (Auto) 0.4 % Basophils (%) (Auto) 0.0 % Neutrophils # (Auto) 3.53 K/uL (1.4-6.5) Lymphocytes # (Auto) 1.23 K/uL (1.2-3.4) Monocytes # (Auto) 0.59 K/uL (0.11-0.59) Eosinophils # (Auto) 0.02 K/uL (0-0.5) Basophils # (Auto) 0.00 K/uL (0-0.2) RDW Standard Deviation 43.5 fL (36.4-46.3) RDW Coefficient of Variation 12.8 % (11.5-14.5) Immature Granulocyte % (Auto) 0.4 % Immature Granulocyte # (Auto) 0.02 K/uL (0.00-0.02) Urine Color DK YELLOW Urine Appearance CLOUDY (CLEAR) Urine pH 5.0 (4.5-7.5) Urine Specific [place] 1.027 (1.000-1.030) Urine Protein NEG (NEG) Urine Glucose (UA) NEG (NEG) Urine Ketones 1+ (NEG) Urine Occult Blood 2+ (NEG) Urine Nitrite NEG (NEG) Urine Bilirubin NEG (NEG) Urine Urobilinogen NEG (NEG) Urine Leukocyte Esterase MODERATE (NEG) Urine WBC (Auto) >30 /hpf (0-5) Urine RBC (Auto) 10-30 /hpf (0-4) Urine Hyaline Casts (Auto) 10-30 /lpf (0-5) Urine Epithelial Cells (Auto) >30 /lpf (0-5) Urine Bacteria (Auto) 1+ (NEG) Urine Yeast (Auto) (NONE PRSENT) Anion Gap 8.0 mmol/L (3-11) Est Creatinine Clear Calc Drug Dose 43.7 ml/min Estimated GFR () 64.7 Estimated GFR (Non- 55.9 BUN/Creatinine Ratio 30.9 (10-20) Calcium Level 10.0 mg/dl (8.5-10.1) Magnesium Level 2.0 mg/dl (1.8-2.4) Total Bilirubin 0.6 mg/dl (0.2-1) Aspartate Amino Transf (AST/SGOT) 11 U/L (15-37) Alanine Aminotransferase (ALT/SGPT) 15 U/L (12-78) Alkaline Phosphatase 67 U/L (45-117) Troponin I < 0.015 ng/ml (0-0.045) Total Protein 7.2 gm/dl (6.4-8.2) Albumin 3.3 gm/dl (3.4-5.0) Globulin 3.9 gm/dl (2.5-4.0) Albumin/Globulin Ratio 0.9 (0.9-2) Thyroid Stimulating Hormone (TSH) 0.006 uIu/ml (0.300-4.500) Free Thyroxine 5.29 ng/dl (0.80-1.60) Free Triiodothyronine 19.83 pg/ml (2.30-4.20) Laboratory results reviewed by me. Medications Administered Medications (Trade) Dose Ordered Sig/Herbert Route Start Time Stop Time Status Last Admin Dose Admin Sodium Chloride 500 ml @ 999 mls/hr Q31M STAT IV 12/18/17 16:05 12/18/17 16:35 DC 12/18/17 16:33 999 MLS/HR Ceftriaxone Sodium (Rocephin Inj) 1 gm NOW STAT IV 12/18/17 17:13 12/18/17 17:14 DC 12/18/17 17:30 1 GM ECG Per My Interpretation Indication: other (fall) Rate (beats per minute): 65 Rhythm: normal sinus Findings: no ectopy, other (No ST elevations. No PVCs. ) ED Course 1558: The patient was evaluated in room A3. A complete history and physical exam was performed. 1605: Ordered Sodium Chloride 500 ml @ 999 mls/hr IV. 1713: Ordered Rocephin Inj 1 gm IV. 1745: The patients orthostatic vital signs were negative. 1750: Reevaluated the patient. Discussed results and discharge instructions: she verbalized understanding and agreement. The patient is ready for discharge. Medical Decision The patient is a 82 year old female who presents to the ED with complaints of a head injury from a fall. Differential diagnoses considered include UTI, ICH, skull fracture, thyroid disorder, electrolyte imbalance, anemia, dysrhythmia, TN , and cervical spine injury. There is no leukocytosis or concerning anemia. Thyroid testing shows some hyperthyroidism. No significant electrolyte abnormality, kidney failure or hepatitis. Brain CT shows no acute bleed or mass-effect. C-spine CT shows no acute fracture. Orthostatic vital signs were negative. EKG shows a sinus rhythm, no acute ischemia. Cardiac enzyme testing 1 is not consistent with acute cardiac injury. Urinalysis does suggest infection. Urine culture is pending. The patient received IV saline, she was given IV ceftriaxone. I do think she is stable for discharge. She will be discharged on Keflex for the UTI. She will speak with her doctor in the next 1 or 2 days about the thyroid elevation. The patient can return here if worsening. She was reassured. Medication Reconcilliation Current Medication List: was personally reviewed by me Blood Pressure Screening Patient's blood pressure: Elevated blood pressure Blood pressure disposition: Elevated BP felt to be situational Impression Primary Impression: Head trauma Additional Impressions: UTI (urinary tract infection) Hyperthyroidism Scribe Attestation The scribe's documentation has been prepared under my direction and personally reviewed by me in its entirety. I confirm that the note above accurately reflects all work, treatment, procedures, and medical decision making performed by me. Departure Information Dispostion Home / Self-Care Prescriptions Cephalexin Monohydrate (Keflex) 500 Mg Cap 500 MG PO TID for 7 Days, #21 CAP Prov: Adolph Lewis M.D. 12/18/17 Referrals Tiara Calloway M.D. (PCP) Forms HOME CARE DOCUMENTATION FORM, IMPORTANT VISIT INFORMATION Patient Instructions My [facility] Additional Instructions keflex 3x per day for 1 week stay well hydrated follow with your doctor--call tomorrow for an appt in 1-2 days for the elelvated thyroid testing return if worsening brain CT was negative today Problem Qualifiers
[2017-12-18 17:03] LABS: EOS % 0.4 %; EOS ABS # 0.02 K/uL (0-0.5); HEMATOCRIT 40.2 % (37-47); HEMOGLOBIN 13.3 g/dL (12.0-16.0); IG# 0.02 K/uL (0.00-0.02); LYMPH % 22.8 %; LYMPH ABS # 1.23 K/uL (1.2-3.4); MEAN CELL VOLUME 92.4 fL (80-100); MEAN CORPUSCULAR HEMOGLOBIN 30.6 pg (25-34); MEAN CORPUSCULAR HGB CONC 33.1 g/dl (32-36); MEAN PLATELET VOLUME 9.5 fL (7.4-10.4); MONO % 10.9 %; MONO ABS # 0.59 K/uL (0.11-0.59); NEUT % 65.5 %; NEUT ABS # 3.53 K/uL (1.4-6.5); PLATELET COUNT 176 K/uL (130-400); RED CELL DISTRIBUTION WIDTH CV 12.8 % (11.5-14.5); RED CELL DISTRIBUTION WIDTH SD 43.5 fL (36.4-46.3); WHITE BLOOD COUNT 5.39 K/uL (4.8-10.8)
[2017-12-18] MEDS ORDERED: LXP10 PO (17:08)
[2017-12-18] MEDS ORDERED: APIX1TAB3 PO (17:08)
[2017-12-18] MEDS ORDERED: INSU100I2 SC (17:08)
[2017-12-18] MEDS ORDERED: LPT40 PO (17:08)
[2017-12-18] MEDS ORDERED: DILT240C48 PO (17:08)
[2017-12-18] MEDS ORDERED: METF500T5 PO (17:08)
[2017-12-18] MEDS ORDERED: CEFTRIAXONE SOD INJ 1 GM ADDVIAL IV STA (17:13)
[2017-12-18 17:23] LABS: ALBUMIN 3.3 gm/dl (3.4-5.0); ALT/SGPT 15 U/L (12-78); AST/SGOT 11 U/L (15-37); BLOOD UREA NITROGEN 30 mg/dl (7-18); CARBON DIOXIDE 28 mmol/L (21-32); CREATININE 0.96 mg/dl (0.60-1.20); GLUCOSE 176 mg/dl (70-99); POTASSIUM 4.5 mmol/L (3.5-5.1); SODIUM 139 mmol/L (136-145)
--- NOTE | 2017-12-18 17:27 | DIAGNOSTIC IMAGING REPORT ---
HEAD WITHOUT CONTRAST (CT) CT DOSE: HISTORY: Mental status change EVALUATE ALTERED MENTAL STATUS/WEAKNESS TECHNIQUE: Multiaxial CT images of the head were performed without the use of intravenous contrast. A dose lowering technique was utilized adhering to the principles of ALARA. Comparison: None. Findings: The paranasal sinuses and mastoid air cells are clear. The calvarium and skull base are intact. The ventricles and sulci are within normal limits. There is no mass, hematoma, midline shift, or acute infarct. Impression: No acute intracranial abnormality. The above report was generated using voice recognition software. It may contain grammatical, syntax or spelling errors. Electronically signed by: Darius James M.D. 12/18/2017 5:25 PM Dictated Date/Time: 12/18/2017 5:24 PM
[2017-12-18 17:34] LABS: ALKALINE PHOSPHATASE 67 U/L (45-117); TOTAL PROTEIN 7.2 gm/dl (6.4-8.2)
--- NOTE | 2017-12-18 17:41 | DIAGNOSTIC IMAGING REPORT ---
CERVICAL SPINE CT CT DOSE: 919.27 mGy.cm HISTORY: fall, neck pain TECHNIQUE: Multiaxial CT images of the cervical spine were performed and reformatted in the sagittal and coronal plane without the use of contrast. A dose lowering technique was utilized adhering to the principles of ALARA. COMPARISON: None. FINDINGS: No fractures. No subluxation. Prevertebral soft tissues and the C1-C2 interval are intact. No pneumothorax. Moderate to severe disc space narrowing at C6-C7. Focal indentation and sclerosis at the inferior endplate of C6. This is likely due to a chronic Schmorl's node. There is a moderate sized focal central disc protrusion at C4-C5. Small disc osteophyte complex at C6-C7. Diffusely enlarged thyroid goiter. IMPRESSION: No fractures within the cervical spine. Additional findings as described above. Electronically signed by: Javid Gil M.D. 12/18/2017 5:39 PM Dictated Date/Time: 12/18/2017 5:31 PM
[2017-12-18 17:44] VITALS: BP 156/65; PULSE 89; O2SAT 97
[2017-12-18] MEDS ORDERED: CEPH500C PO (17:50)
== END 2017-12-18 18:15 | disposition home or self-care (01) ==
LOC: C.EDB 15:45 → C.EDA 18:15
DX: S09.90XA Unspecified injury of head, initial encounter (principal); W19.XXXA Unspecified fall, initial encounter; Y92.89 Other specified places as the place of occurrence of the external cause; N39.0 Urinary tract infection, site not specified; E05.90 Thyrotoxicosis, unspecified without thyrotoxic crisis or storm; I48.91 Unspecified atrial fibrillation; I11.0 Hypertensive heart disease with heart failure; E11.9 Type 2 diabetes mellitus without complications; E78.5 Hyperlipidemia, unspecified; E03.9 Hypothyroidism, unspecified; M81.0 Age-related osteoporosis without current pathological fracture; Z79.01 Long term (current) use of anticoagulants; Z79.4 Long term (current) use of insulin; Z79.899 Other long term (current) drug therapy; Z88.1 Allergy status to other antibiotic agents; Z88.8 Allergy status to other drugs, medicaments and biological substances

== ENCOUNTER 2017-12-23 19:08 | Inpatient (IN) | payer OTHER, MEDICARE ==
[~2017-12-23] VITALS: Ht 167.6 cm; Wt 64.3 kg
[~2017-12-23 19:08] MED LIST changes: +APIX1TAB3 PO; +CEPH500C PO; -DEXT40GE20 PO; -DILT120C68 PO; +DILT240C48 PO; -DLCS PO; -DOCU-94 PO; -GLGKIT INJ; -HYDR-5688 PO; +INSU100I2 SC; -LDDP5 TOP; +LPT40 PO; +LXP10 PO; +METF500T5 PO; -MOML PO; -NVLG SC; -NYST-19 TOP; -POLY335019 PO; -SENN-65 PO; -SODIENE PR
[2017-12-23] MEDS ORDERED: SODIUM CHLORIDE 0.9% 500ML 500 ML IV STA (19:56)
[2017-12-23 20:21] LABS: BASO % 0.2 %; BASO ABS # 0.01 K/uL (0-0.2); EOS % 0.8 %; EOS ABS # 0.04 K/uL (0-0.5); HEMATOCRIT 37.7 % (37-47); HEMOGLOBIN 12.4 g/dL (12.0-16.0); IG# 0.01 K/uL (0.00-0.02); LYMPH ABS # 1.39 K/uL (1.2-3.4); MEAN CELL VOLUME 91.5 fL (80-100); MEAN CORPUSCULAR HEMOGLOBIN 30.1 pg (25-34); MEAN CORPUSCULAR HGB CONC 32.9 g/dl (32-36); MEAN PLATELET VOLUME 9.4 fL (7.4-10.4); MONO % 14.5 %; MONO ABS # 0.72 K/uL (0.11-0.59); NEUT % 56.3 %; PLATELET COUNT 158 K/uL (130-400); RED CELL DISTRIBUTION WIDTH CV 12.9 % (11.5-14.5); RED CELL DISTRIBUTION WIDTH SD 43.2 fL (36.4-46.3); WHITE BLOOD COUNT 4.97 K/uL (4.8-10.8)
[2017-12-23 20:42] LABS: INR 1.1 (0.9-1.1); PTT PATIENT 26.5 SECONDS (21.0-31.0)
--- NOTE | 2017-12-23 21:09 | DIAGNOSTIC IMAGING REPORT ---
HEAD WITHOUT CONTRAST (CT) CT DOSE: 537.48 mGy.cm HISTORY: Trauma. Mental status change. eval for bleed TECHNIQUE: Multiaxial CT images of the head were performed without the use of intravenous contrast. A dose lowering technique was utilized adhering to the principles of ALARA. Comparison: 12/18/2017 Findings: The paranasal sinuses and mastoid air cells are clear. The calvarium and skull base are intact. The ventricles and sulci are within normal limits. There is no mass, hematoma, midline shift, or acute infarct. Impression: No acute intracranial abnormality. The above report was generated using voice recognition software. It may contain grammatical, syntax or spelling errors. Electronically signed by: Darius James M.D. 12/23/2017 9:08 PM Dictated Date/Time: 12/23/2017 9:07 PM
[2017-12-23 21:32] LABS: ALBUMIN 2.6 gm/dl (3.4-5.0); ALT/SGPT 13 U/L (12-78); AST/SGOT 12 U/L (15-37); BLOOD UREA NITROGEN 22 mg/dl (7-18); CALCIUM 9.5 mg/dl (8.5-10.1); CARBON DIOXIDE 25 mmol/L (21-32); CREATININE 0.69 mg/dl (0.60-1.20); GLUCOSE 156 mg/dl (70-99); POTASSIUM 4.3 mmol/L (3.5-5.1); SODIUM 136 mmol/L (136-145)
[2017-12-23 21:35] LABS: ALKALINE PHOSPHATASE 69 U/L (45-117); TOTAL PROTEIN 6.6 gm/dl (6.4-8.2)
--- NOTE | 2017-12-23 22:11 | DIAGNOSTIC IMAGING REPORT ---
CHEST 2 VIEWS ROUTINE CLINICAL HISTORY: weak eval for pna dyspnea COMPARISON STUDY: 09/11/2017 FINDINGS: Mild interstitial prominence left base. Lungs otherwise are clear. Permanent bipolar cardiac pacemaker. IMPRESSION: Mild interstitial prominence left lung base. The above report was generated using voice recognition software. It may contain grammatical, syntax or spelling errors. Electronically signed by: Darius James M.D. 12/23/2017 10:10 PM Dictated Date/Time: 12/23/2017 10:10 PM
[2017-12-23] MEDS ORDERED: ALUMINUM/MAGNESIUM/SIMETH (MAALOX MAX) 30 ML UDC PO PRN (23:30)
[2017-12-23] MEDS ORDERED: NITROGLYCERIN 0.4 MG SL PER TAB CHARGE SL PRN (23:30)
[2017-12-23] MEDS ORDERED: ACETAMINOPHEN 325 MG TAB PO PRN (23:30)
[2017-12-23] MEDS ORDERED: ONDANSETRON INJ 2 MG/ML 2 ML VIAL IV PRN (23:30)
[2017-12-23] MEDS ORDERED: METHIMAZOLE 5 MG TAB PO ONE (23:30)
[2017-12-23] MEDS ORDERED: SOTA240T PO (23:44)
[2017-12-24] VITALS (7 sets, daily range): BP systolic 113–156; BP diastolic 62–76; PULSE 86–116; TEMP 36.5–37.2; O2SAT 92–95; BMI 22.6
--- NOTE | 2017-12-24 00:25 | EMERGENCY ROOM VISIT NOTE ---
History Report prepared by Alix: Jeff Bustamante Under the Supervision of: Dr. Evert Elizabeth M.D. First contact with patient: 19:44 Chief Complaint: WEAKNESS Stated Complaint: GERALIZED WEAKNESS,NAUSA,DIARRHEA,HR 120 History of Present Illness The patient is a 82 year old female who presents to the Emergency Room with complaints of persistent weakness that began about a week ago. The patient states that her symptoms are relieved with laying down. The patient states that she was put on Metformin recently, but reports that she developed diarrhea about a week ago due to the medication. She reports that her stool has been watery. The patient notes that at one point she also noticed bright red blood on the toilet paper after using it. She reports that around the same time as the start of her diarrhea, she developed generalized weakness. She did stop the metformin but continued to have diarrhea. The patient states that she needs to lean on her walker whenever she attempts to stand up. She reports that she had a fall five days ago due to her weakness. The patient reports she was seen here in the ER. Per the patient's report, her head CT was negative. She was also found to have a UTI during her visit and was prescribed Keflex. The patient states after her discharged her weakness has been persistent. She reports that she has a baseline tremor, but states her tremor has been worsening. The patient states that she has also been short of breath. She reports she has a history of atrial fibrillation, which she had a pacemaker placed for. She states that she checks her heart rate due to this condition and found her heart rate to be fluctuating into the 120s. The patient notes her hair has also been falling out in clumps. She denies fever, chest discomfort, abdominal pain, headache, numbness or weakness on one side of body, and slurred speech. The patient states she has a history of thyroid problems, which she used to take medication for. She reports that she stopped taking her medication a couple of years ago since her physician told her that her thyroid is back to normal. The patient notes they found that her thyroid levels were increased during her visit five days ago. She also reports a history of blood clots which she had a leg brace and takes Eliquis for. Source of History: patient Onset: about a week ago Position: other (global) Quality: other (weakness) Timing: other (persistent) Modifying Factors (Relieving): other (laying down) Associated Symptoms: + SOB, + diarrhea, No fevers, No headache, No chest pain, No abdominal pain Review of Systems See HPI for pertinent positives & negatives. A total of 10 systems reviewed and were otherwise negative. Past Medical & Surgical Medical Problems: (1) Anemia (2) Atrial fibrillation (3) CHF (congestive heart failure) (4) Diabetes mellitus, type 2 (5) Dyslipidemia (6) Essential tremor (7) Hematoma (8) Hypertension (9) Hyperthyroidism (10) Hypothyroidism (11) Osteoporosis (12) Rapid atrial fibrillation Surgical Problems: (1) S/P IVC filter (2) Status post cardiac pacemaker procedure (3) Status post catheter ablation of atrial fibrillation (4) Status post hysterectomy (5) Status post right knee replacement (6) Status post tonsillectomy Family History COPD (chronic obstructive pulmonary disease) MOTHER Colon cancer BROTHER Congestive heart failure MOTHER Coronary artery disease MOTHER DVT BROTHER SISTER Lung cancer SISTER Social History Smoking Status: Never Smoker Alcohol Use: none Drug Use: none Housing Status: lives alone Occupation Status: retired Current/Historical Medications Scheduled Apixaban (Eliquis), 5 MG PO BID Atorvastatin (Lipitor), 20 MG PO DAILY Cephalexin Monohydrate (Keflex), 500 MG PO TID Diltiazem Hcl Coated Beads (Cartia Xt), 240 MG PO DAILY Escitalopram Oxalate (Escitalopram Oxalate), 10 MG PO DAILY Insulin Glargine (Lantus Solostar), 40 UNITS SC DAILY Insulin Lispro (Human) (Humalog Kwikpen), 1 DOSE SC DIRECTED Metformin Hcl Er (Glucophage Er), 500 MG PO BID Propranolol (Inderal), 20 MG PO DAILY Sotalol Hcl (Sotalol Hcl), 240 MG PO DAILY Scheduled PRN Acetaminophen (Tylenol), 500 MG PO Q4 PRN for Pain Alprazolam (Xanax), 0.25 MG PO BID PRN for Anxiety Allergies Coded Allergies: Levofloxacin (Verified Adverse Reaction, Mild, NAUSEA, 12/23/17) Propofol (Verified Adverse Reaction, Mild, NAUSEA, 12/23/17) Physical Exam Vital Signs Date Time Temp Pulse Resp B/P (MAP) Pulse Ox O2 Delivery O2 Flow Rate FiO2 12/24/17 00:13 118 20 137/64 94 Room Air 12/23/17 22:34 112 20 125/64 97 Room Air 12/23/17 21:30 106 20 127/63 97 Room Air 12/23/17 20:31 93 16 158/72 95 Room Air 12/23/17 20:28 97 12/23/17 20:21 126/78 12/23/17 19:23 37.0 105 18 128/67 94 Room Air Physical Exam Constitutional: Vital signs reviewed. Eyes: Pupils are equal round reactive to light. Conjunctiva are noninjected. ENT: Pharynx is clear without erythema or exudate. Mucous membranes are dry. Neck supple without meningeal signs. Respiratory: Clear to auscultation bilaterally. Breath sounds are equal bilaterally. Cardiovascular: Regular rate and irregularly irregular rhythm. No rubs or gallops. GI: Soft, nondistended and nontender. Bowel sounds are present. Musculoskeletal: No peripheral edema. No lower extremity tenderness. Integumentary: No cyanosis. Neurological: The patient is awake and alert. Cranial nerves II-XII are intact. Essential tremor. Motor is 5 out of 5 all extremities. Unable to asses right leg which is in brace. Sensation is intact to light touch all extremities. Normal speech. No pronator drift. Psychiatric: Normal affect. Medical Decision & Procedures ER Provider Diagnostic Interpretation: Radiology results as stated below per my review and the radiologist's interpretation: HEAD WITHOUT CONTRAST (CT) CT DOSE: 537.48 mGy.cm HISTORY: Trauma. Mental status change. eval for bleed TECHNIQUE: Multiaxial CT images of the head were performed without the use of intravenous contrast. A dose lowering technique was utilized adhering to the principles of ALARA. Comparison: 12/18/2017 Findings: The paranasal sinuses and mastoid air cells are clear. The calvarium and skull base are intact. The ventricles and sulci are within normal limits. There is no mass, hematoma, midline shift, or acute infarct. Impression: No acute intracranial abnormality. The above report was generated using voice recognition software. It may contain grammatical, syntax or spelling errors. Electronically signed by: Darius James M.D. 12/23/2017 9:08 PM Dictated Date/Time: 12/23/2017 9:07 PM CHEST 2 VIEWS ROUTINE CLINICAL HISTORY: weak eval for pna dyspnea COMPARISON STUDY: 09/11/2017 FINDINGS: Mild interstitial prominence left base. Lungs otherwise are clear. Permanent bipolar cardiac pacemaker. IMPRESSION: Mild interstitial prominence left lung base. The above report was generated using voice recognition software. It may contain grammatical, syntax or spelling errors. Electronically signed by: Darius James M.D. 12/23/2017 10:10 PM Dictated Date/Time: 12/23/2017 10:10 PM Laboratory Results 12/23/17 20:10 Red Blood Count 4.12, Mean Corpuscular Volume 91.5, Mean Corpuscular Hemoglobin 30.1, Mean Corpuscular Hemoglobin Concent 32.9, Mean Platelet Volume 9.4, Neutrophils (%) (Auto) 56.3, Lymphocytes (%) (Auto) 28.0, Monocytes (%) (Auto) 14.5, Eosinophils (%) (Auto) 0.8, Basophils (%) (Auto) 0.2, Neutrophils # (Auto ) 2.80, Lymphocytes # (Auto) 1.39, Monocytes # (Auto) 0.72, Eosinophils # (Auto ) 0.04, Basophils # (Auto) 0.01 12/23/17 20:10 Test 12/23/17 20:10 12/23/17 20:15 12/23/17 21:30 White Blood Count 4.97 K/uL (4.8-10.8) Red Blood Count 4.12 M/uL (4.2-5.4) Hemoglobin 12.4 g/dL (12.0-16.0) Hematocrit 37.7 % (37-47) Mean Corpuscular Volume 91.5 fL (80-100) Mean Corpuscular Hemoglobin 30.1 pg (25-34) Mean Corpuscular Hemoglobin Concent 32.9 g/dl (32-36) Platelet Count 158 K/uL (130-400) Mean Platelet Volume 9.4 fL (7.4-10.4) Neutrophils (%) (Auto) 56.3 % Lymphocytes (%) (Auto) 28.0 % Monocytes (%) (Auto) 14.5 % Eosinophils (%) (Auto) 0.8 % Basophils (%) (Auto) 0.2 % Neutrophils # (Auto) 2.80 K/uL (1.4-6.5) Lymphocytes # (Auto) 1.39 K/uL (1.2-3.4) Monocytes # (Auto) 0.72 K/uL (0.11-0.59) Eosinophils # (Auto) 0.04 K/uL (0-0.5) Basophils # (Auto) 0.01 K/uL (0-0.2) RDW Standard Deviation 43.2 fL (36.4-46.3) RDW Coefficient of Variation 12.9 % (11.5-14.5) Immature Granulocyte % (Auto) 0.2 % Immature Granulocyte # (Auto) 0.01 K/uL (0.00-0.02) Prothrombin Time 11.6 SECONDS (9.0-12.0) Prothromb Time International Ratio 1.1 (0.9-1.1) Activated Partial Thromboplast Time 26.5 SECONDS (21.0-31.0) Partial Thromboplastin Ratio 1.0 Anion Gap 8.0 mmol/L (3-11) Est Creatinine Clear Calc Drug Dose 60.8 ml/min Estimated GFR () 95.3 Estimated GFR (Non- 82.2 BUN/Creatinine Ratio 32.6 (10-20) Calcium Level 9.5 mg/dl (8.5-10.1) Magnesium Level 1.7 mg/dl (1.8-2.4) Total Bilirubin 0.5 mg/dl (0.2-1) Direct Bilirubin 0.2 mg/dl (0-0.2) Aspartate Amino Transf (AST/SGOT) 12 U/L (15-37) Alanine Aminotransferase (ALT/SGPT) 13 U/L (12-78) Alkaline Phosphatase 69 U/L (45-117) Total Protein 6.6 gm/dl (6.4-8.2) Albumin 2.6 gm/dl (3.4-5.0) Thyroid Stimulating Hormone (TSH) < 0.005 uIu/ml (0.300-4.500) Free Thyroxine 5.60 ng/dl (0.80-1.60) Bedside Troponin I < 0.030 ng/ml (0-0.045) Urine Color YELLOW Urine Appearance CLEAR (CLEAR) Urine pH 5.0 (4.5-7.5) Urine Specific [place] 1.020 (1.000-1.030) Urine Protein NEG (NEG) Urine Glucose (UA) NEG (NEG) Urine Ketones NEG (NEG) Urine Occult Blood 3+ (NEG) Urine Nitrite NEG (NEG) Urine Bilirubin NEG (NEG) Urine Urobilinogen NEG (NEG) Urine Leukocyte Esterase TRACE (NEG) Urine WBC (Auto) 1-5 /hpf (0-5) Urine RBC (Auto) >30 /hpf (0-4) Urine Hyaline Casts (Auto) 1-5 /lpf (0-5) Urine Epithelial Cells (Auto) 20-30 /lpf (0-5) Urine Bacteria (Auto) NEG (NEG) Laboratory results as reviewed by me. Medications Administered Medications (Trade) Dose Ordered Sig/Herbert Route Start Time Stop Time Status Last Admin Dose Admin Sodium Chloride 500 ml @ 999 mls/hr Q31M STAT IV 12/23/17 19:56 12/23/17 20:26 DC 12/23/17 20:14 999 MLS/HR Methimazole (Methimazole Tab) 10 mg NOW ONCE PO 12/23/17 23:30 12/24/17 00:02 DC 12/24/17 00:11 10 MG ECG Per My Interpretation Indication: weakness Rate (beats per minute): 109 Rhythm: atrial flutter Findings: other (No PVCs, No ST elevation) ED Course 1946: The patient was evaluated in room B06. A complete history and physical exam was performed. 1955: Ordered Sodium Chloride 500 ml @ 999 mls/hr IV. 2118: I reevaluated the patient and she reports she feels better after the fluids. 2156: I reevaluated the patient and discussed the test results with the family and her. 2206: I discussed the patients case with Dr. Dyson, [facility] Hospitalist. He understands the patients case and agrees to accept the patient. The patient will be further evaluated. Medical Decision This is a 89-year-old female presents with generalized weakness, tachycardia and diarrhea. Differential diagnosis includes dehydration, A. fib with RVR, metabolic derangement, electrolyte abnormality, infection, C. difficile. I did perform a limited focused review of portions of the patient's old chart on the electronic medical record. The patient was seen here December 18 for a head injury. The patient is on Eliquis. She was found to have a negative head CT. She was also diagnosed with a UTI and was prescribed Keflex. Her urine culture came back negative. I did evaluate the patient as noted above. The patient is presenting with generalized weakness. She sometimes has tachycardia as well and has had diarrhea for a week. She originally attributed to diarrhea to metformin but has stopped metformin continues to have diarrhea. She does appear to be dehydrated. IV access was established. The patient was placed on a continuous home theater expert. I did order and personally review the patient's 12-lead EKG and chest x-ray as described above. I did order and review the patient's blood work as noted in the electronic medical record. She is not anemic. Her TSH is very low and her free T4 is elevated. This may be contributing to her tachycardia and hair loss. She does state that she was told by an coordinator of genetic services that she had a normal thyroid scan in June and did not need to be on thyroid medications. I did order a CT of the head to evaluate for subdural. I did review the images myself as well as the radiology report as described above. This was unremarkable. I did treat the patient with normal saline IV. I did reassess the patient. She states that she did feel somewhat better after the bolus. I did recommend hospitalization for further evaluation of her symptoms. Her family states that she is extremely unsteady on her feet and with her being anticoagulated on Eliquis I did have concerns for her safety. I did discuss case with the hospitalist and case management manager. Medication Reconcilliation Current Medication List: was personally reviewed by me Blood Pressure Screening Patient's blood pressure: Normal blood pressure Consults Time Called: 2158 Consulting Physician: Yenifer Quintanilla Hospitalist Returned Call: [phone] I discussed the patients case with Yenifer Quintanilla Hospitalrickey. He understands the patients case and agrees to accept the patient. The patient will be further evaluated. Impression Primary Impression: Generalized weakness Additional Impressions: Frequent falls Anticoagulated Tremor Hyperthyroidism Atrial flutter with rapid ventricular response Dehydration Scribe Attestation The scribe's documentation has been prepared under my direct and personally reviewed by me in its entirety. I confirm that the note above accurately reflects all work, treatment, procedures, and medical decision making performed by me. Departure Information Dispostion Being Evaluated By Hospitalist Prescriptions Sotalol Hcl (SOTALOL HCL) 240 Mg Tab 240 MG PO DAILY, #30 Prov: Rene Dyson MD 12/23/17 Referrals Tiara Calloway M.D. (PCP) Patient Instructions My [facility] Problem Qualifiers
--- NOTE | 2017-12-24 01:19 | HISTORY & PHYSICAL EXAMINATION ---
DATE OF ADMISSION: 12/23/2017 CHIEF COMPLAINT: Feeling weakness. HISTORY OF PRESENT ILLNESS: This is an 82-year-old female with past medical history significant for atrial fibrillation, DVT, PE, status post IVC filter, hypertension, pulmonary nodules, history of hematoma of right thigh, presents with weakness going on for the last several days and also she is having diarrhea for the last 1-1/2 weeks 3-4 times a day and was having some feeling that she was in rapid AFib so she came to the ER. She was having a heart rate in 120s. She does also says she is losing her hair. She is shaky. Denies any dizziness, no blurred visions, no earache, no runny nose, no sore throat, no difficulty swallowing. No chest pain, no shortness of breath, no cough, no fever, no chills. Appetite is okay. No nausea, no abdominal pain. No blood in the stools. Normal bowel and bladder movements. No burning micturition, no blood in the urine, no swelling of the legs. Labs showed TSH is low and free T4 had been high. The patient says she was taking Synthroid until 4 years ago when it was stopped because her thyroid function was normal at that time and she used to follow with her director building at [place]. 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 Also she was in rehab for some time. Currently, she is living with her daughter. ALLERGIES: LEVAQUIN, PROPOFOL. PAST MEDICAL HISTORY: As mentioned above. PAST SURGICAL HISTORY: IR placement of IVC filter, knee arthroscopy, right side tonsillectomy. MEDICATIONS: The patient is on Tylenol 500 mg every 6 hours p.r.n., Xanax 0.5 mg p.o. at bedtime p.r.n., Eliquis 5 mg p.o. b.i.d., Lipitor 20 mg p.o. daily, Cardizem 240 mg p.o. daily, Lexapro 10 mg p.o. daily, insulin sliding scale and Humalog 5 units along with sliding scale before each meal, Lantus 40 units daily, metformin 1000 mg p.o. b.i.d. daily, propranolol 20 mg p.o. daily, sotalol 240 mg p.o. daily. FAMILY HISTORY: Significant for mother has COPD, CHF, CAD; brother colon cancer; another sister has lung cancer; mother has DVT. SOCIAL HISTORY: No smoking history. No alcohol history. No drug use. Currently living with her daughter. REVIEW OF SYMPTOMS: As per HPI. Rest of review of symptoms negative. PHYSICAL EXAMINATION: GENERAL: The patient is old and frail, not in distress. VITAL SIGNS: Temperature 37, pulse 112, respiratory rate 20, blood pressure 135/64, oxygen 97% room air. HEENT: No pallor, no icterus. Pupils equal, round, and react to light. NECK: No JVD or neck masses. No carotid bruit. No palpable neck masses. CARDIOVASCULAR: S1, S2 heard. Tachycardia. No murmurs. RESPIRATORY SYSTEM: Clear to auscultation bilaterally. No wheezing, no crackles. ABDOMEN: Soft, bowel sounds present. Nontender. No distention. CENTRAL NERVOUS SYSTEM: Cranial nerves II-XII grossly intact. Nonfocal. EXTREMITIES: No edema, no erythema. LABS: WBC 4.9, hemoglobin 12.4, hematocrit 37.7, platelets 158. Sodium 136, potassium 4.3, chloride 103, bicarbonate 25, BUN 22, creatinine 0.6, serum glucose 156, calcium 9.5, magnesium 1.7, total bilirubin 0.5, direct bilirubin 0.2, AST 12, ALT 13, alkaline phosphatase 69, Point of care troponin 0.03. TSH 0.005, free T4 5.6. PT 11.6, INR 1.1. ABG 26.5. Urinalysis trace, leukocyte esterase positive. EKG: Atrial flutter with a heart rate of 109. Nonspecific T-wave abnormality seen. ASSESSMENT AND PLAN: This is an 82-year-old female who presents with weakness. 1. Weakness, tremors, loss of hair, diarrhea mostly secondary to hyperthyroidism. We will repeat the labs. The patient will be placed on methimazole. Patient is on propranolol which will be continued We will get thyroid ultrasound, needs to follow up with endocrinology. Monitor the response. 2. Rapid atrial flutter. The patient is on sotalol, Inderal, Cardizem, Eliquis.Secondary to her hyperthyroidism?. We will monitor and we will follow echocardiogram, consult cardiology in the morning for any adjustment of the medications. 3. History of pulmonary embolism, deep vein thrombosis, status post IVC filter, on Eliquis. 4. History of right thigh hematoma, on brace. Physical therapy/occupational therapy when more stable. Hemoglobin is stable. 5. History of diabetes. Continue Lantus . ISS. Hold metformin.Will monitor 6. Hyperlipidemia. Continue statin. 7.Deep vein thrombosis prophylaxis on Eliquis. DISPOSITION: Admit to tele floor. PT, OT prior to discharge planning. Level 1 full code. MTDD
[2017-12-24] MEDS: SODIUM CHLORIDE 0.9% 1000ML 1,000 ML IV SCH ×2 (02:03→12:40)
[2017-12-24] MEDS ORDERED: GLUCOSE 10 TABS/TUBE PO PRN (02:30)
[2017-12-24] MEDS ORDERED: DEXTROSE 50% 50 ML SYR IV PRN (02:30)
[2017-12-24] MEDS ORDERED: GLUCOSE 40% GEL 15 GM TUBE PO PRN (02:30)
[2017-12-24] MEDS ORDERED: GLUCAGON FOR INJ 1 MG VIAL SQ PRN (02:30)
[2017-12-24 07:04] LABS: EOS % 1.2 %; EOS ABS # 0.05 K/uL (0-0.5); HEMATOCRIT 33.4 % (37-47); LYMPH % 31.6 %; LYMPH ABS # 1.36 K/uL (1.2-3.4); MEAN CELL VOLUME 91.5 fL (80-100); MEAN CORPUSCULAR HEMOGLOBIN 30.1 pg (25-34); MEAN CORPUSCULAR HGB CONC 32.9 g/dl (32-36); MEAN PLATELET VOLUME 9.4 fL (7.4-10.4); MONO % 15.8 %; MONO ABS # 0.68 K/uL (0.11-0.59); NEUT % 51.4 %; NEUT ABS # 2.22 K/uL (1.4-6.5); PLATELET COUNT 158 K/uL (130-400); RED CELL DISTRIBUTION WIDTH CV 12.8 % (11.5-14.5); RED CELL DISTRIBUTION WIDTH SD 43.5 fL (36.4-46.3); WHITE BLOOD COUNT 4.31 K/uL (4.8-10.8)
[2017-12-24 07:31] LABS: CALCIUM 9.1 mg/dl (8.5-10.1); CREATININE 0.64 mg/dl (0.60-1.20); POTASSIUM 3.8 mmol/L (3.5-5.1)
[2017-12-24] MEDS: SOTALOL HCL 80 MG TAB PO SCH (08:23)
[2017-12-24] MEDS: ATORVASTATIN 20 MG TAB PO SCH (08:25)
[2017-12-24] MEDS: APIXABAN 2.5 MG TAB PO SCH ×2 (08:25→20:03)
[2017-12-24] MEDS: ESCITALOPRAM OXALATE 10 MG TAB PO SCH (08:25)
[2017-12-24] MEDS: PROPRANOLOL HCL 20 MG TAB PO SCH (08:26)
[2017-12-24] MEDS: DILTIAZEM HCL 240 MG CAPCR PO SCH (08:26)
[2017-12-24] MEDS: METHIMAZOLE 5 MG TAB PO SCH ×2 (08:26→20:03)
[2017-12-24] MEDS: INSULIN ASPART 100 UNITS/ML 3 ML PEN SC SCH ×4 (08:30→20:40)
[2017-12-24] MEDS: INSULIN GLARGINE SOLOSTAR 100 UNITS/ML 3 ML PEN SC SCH (08:31)
--- NOTE | 2017-12-24 09:50 | ECHOCARDIOGRAM REPORT ---
*NOTICE TO RECEIVING [employer] This information is strictly Confidential and protected under [place] law. [place] law prohibits you from making any further disclosure of this information unless further disclosure is expressly permitted by the written consent of the person to whom it pertains or is authorized by law. A general authorization for the release of medical or other information is not sufficient for this purpose. Hospital accepts no responsibility if the information is made available to any other person, INCLUDING THE PATIENT. Interpretation Summary * Name: GISELE SINGH Study Date: 12/24/2017 07:26 AM BP: 130/62 mmHg * Patient Location: C.2T\S\S231\S\1 HR: 108 * : 1935 (M/d/yyyy) Gender: Female Height: 66 in * Age: 82 yrs Ethnicity: CA Weight: 150 lb * Ordering Physician: Rene Dyson * Referring Physician: Self, Referred * Performed By: Oscar Hauser RDCS * * Reason For Study: A-FIB * BSA: 1.8 m2 * -- Conclusions -- * The left ventricle is normal in size. * The left ventricle is hyperdynamic. * Ejection Fraction = 65-70%. * The right ventricular systolic function is normal. * The left atrium is mildly dilated. * The right atrium is mildly dilated. * No significant valvular pathology. Procedure Details * A complete two-dimensional transthoracic echocardiogram was performed (2D, M-mode, Doppler and color flow Doppler). * The study was technically adequate. Left Ventricle * The left ventricle is normal in size. * There is normal left ventricular wall thickness. * The left ventricle is hyperdynamic. * Ejection Fraction = 65-70%. Right Ventricle * The right ventricle is normal size. * The right ventricular systolic function is normal. Atria * The left atrium is mildly dilated. * The right atrium is mildly dilated. * The interatrial septum is intact with no evidence for an atrial septal defect. Mitral Valve * There is mild mitral annular calcification. * Significant mitral regurgitation is absent. Tricuspid Valve * The tricuspid valve is not well visualized, but is grossly normal. * There is trace tricuspid regurgitation. Aortic Valve * The aortic valve is trileaflet. * Aortic stenosis is absent. * There is no significant aortic regurgitation. Great Vessels * The aortic root and proximal ascending aorta are normal sized. Pericardium/Pleural * There is no pericardial effusion. MMode 2D Measurements and Calculations IVSd 1.4 cm IVSs 1.9 cm LVIDd 3.9 cm LVIDs 2.4 cm LVPWd 0.92 cm LVPWs 1.4 cm IVS/LVPW 1.5 FS 38.9 % EDV(Teich) 66.0 ml ESV(Teich) 19.8 ml EF(Teich) 70.0 % EDV(cubed) 59.4 ml ESV(cubed) 13.5 ml EF(cubed) 77.2 % % IVS thick 38.2 % % LVPW thick 54.6 % LV mass(C)d 151.0 grams LV mass(C)dI 85.3 grams/m\S\2 LV mass(C)s 146.0 grams LV mass(C)sI 82.5 grams/m\S\2 SV(Teich) 46.2 ml SI(Teich) 26.1 ml/m\S\2 SV(cubed) 45.9 ml SI(cubed) 25.9 ml/m\S\2 Ao root diam 3.1 cm Ao root area 7.3 cm\S\2 ACS 1.7 cm LA dimension 4.1 cm asc Aorta Diam 3.1 cm LA/Ao 1.3 LVOT diam 2.0 cm LVOT area 3.0 cm\S\2 LVAd ap4 16.0 cm\S\2 LVLd ap4 7.3 cm EDV(MOD-sp4) 28.9 ml EDV(sp4-el) 29.5 ml LVAs ap4 8.3 cm\S\2 LVLs ap4 6.3 cm ESV(MOD-sp4) 9.6 ml ESV(sp4-el) 9.3 ml EF(MOD-sp4) 66.8 % EF(sp4-el) 68.6 % LVAd ap2 19.3 cm\S\2 LVLd ap2 7.1 cm EDV(MOD-sp2) 42.8 ml EDV(sp2-el) 44.2 ml LVAs ap2 10.1 cm\S\2 LVLs ap2 6.6 cm ESV(MOD-sp2) 13.7 ml ESV(sp2-el) 13.2 ml EF(MOD-sp2) 67.9 % EF(sp2-el) 70.2 % LVLd %diff -2.60 % EDV(MOD-bp) 34.2 ml LVLs %diff 3.8 % ESV(MOD-bp) 11.6 ml EF(MOD-bp) 66.2 % SV(MOD-sp4) 19.3 ml SI(MOD-sp4) 10.9 ml/m\S\2 SV(MOD-sp2) 29.0 ml SI(MOD-sp2) 16.4 ml/m\S\2 SV(MOD-bp) 22.6 ml SI(MOD-bp) 12.8 ml/m\S\2 SV(sp4-el) 20.2 ml SI(sp4-el) 11.4 ml/m\S\2 SV(sp2-el) 31.0 ml SI(sp2-el) 17.5 ml/m\S\2 Doppler Measurements and Calculations MV E max john 138.2 cm/sec MV dec time 0.17 sec Ao V2 max 158.5 cm/sec Ao max PG 10.1 mmHg Ao max PG (full) 2.6 mmHg MIRACLE(V,A) 2.6 cm\S\2 MIRACLE(V,D) 2.6 cm\S\2 LV V1 max PG 7.5 mmHg LV V1 max 136.6 cm/sec PA V2 max 110.2 cm/sec PA max PG 4.9 mmHg TR max john 289.3 cm/sec
--- NOTE | 2017-12-24 10:32 | DIAGNOSTIC IMAGING REPORT ---
ULTRASOUND OF THE THYROID GLAND CLINICAL HISTORY: Hyperthyroidism. COMPARISON STUDY: No priors. TECHNIQUE: Real-time, grayscale, and color flow sonography of the thyroid gland is performed utilizing a high-frequency linear transducer. Images are reviewed in the transverse and longitudinal planes. FINDINGS: Right lobe: The right lobe of the thyroid gland is top normal in size and markedly heterogeneous in echotexture, measuring 6.0 x 4.0 x 2.3 cm. The right lobe appears hyperemic on color imaging. No discrete lesion is identified. Left lobe: The left lobe of the thyroid gland is top normal in size and markedly heterogeneous in echotexture, measuring 5.6 x 3.6 x 2.1 cm. No discrete lesion is identified. Isthmus: The thyroid isthmus is thickened and heterogeneous in echotexture, measuring 1.7 cm in AP diameter. This appears hyperemic on color imaging. IMPRESSION: 1. The thyroid gland appears mildly enlarged and is markedly heterogeneous in echotexture. The gland is diffusely hyperemic on color imaging and the appearance suggests thyroiditis. Correlation with serum thyroid function studies will be required. 2. No discrete thyroid lesion is identified. Electronically signed by: Adolph Moura M.D. 12/24/2017 10:31 AM Dictated Date/Time: 12/24/2017 10:29 AM
--- NOTE | 2017-12-24 11:26 | Cardiology Consultation ---
Cardiology Consultation Date of Service Dec 24, 2017. Cardiology Consultation Indication: Consultation for Saida rob History: This is an 82-year-old female with a recent complex medical history. She has a home in [place] and spends the rubio there and then travels to [place] where she has a second home. She has a daughter who lives locally whom she visits. She has a history of atrial fibrillation that dates back several years. While in [place] she underwent an ablation. I am uncertain as to whether she has paroxysmal atrial fibrillation or chronic atrial fibrillation but she states she has been on sotalol and anticoagulation for several years even immediately following the ablation. Towards the end of 2016 she had several back injections and had been taken off her Coumadin for several days at a time. Then around the holidays she traveled to [place] and was admitted with a DVT and pulmonary emboli. She had an IVC filter placed at [facility] in [place] by interventional radiology I am assuming due to the extensive amount of clot she had along with her being anticoagulated with Coumadin. She then developed a large right thigh hematoma which prompted a readmission and prolonged hospital stay including time at [facility] due to compartment syndrome and nerve damage. She has been readmitted with general not feeling well with jitteriness, diarrhea, atrial fibrillation and hair loss. After admission she has been found to be hyperthyroid. She has a complex past thyroid history in that she had been on hormone replacement for approximately 20 years and then about 4 years ago she was seeing an dredge boat engineer who slowly weaned her from the hormone replacement. No clear etiology why she was ever placed on thyroid hormone. No previous history of a goiter or Graves' disease. I have been asked to see her in regard to the atrial fibrillation and recommendations regarding treatment. Allergies: Levaquin and propofol Reported Home Medications Medications Dose Route/Sig Max Daily Dose Days Date Category Dose Instructions Sotalol Hcl 240 Mg Tab 240 Mg PO DAILY 12/23/17 Rx Keflex (Cephalexin Monohydrate) 500 Mg Cap 500 Mg PO TID 7 12/18/17 Rx Humalog Kwikpen (Insulin Lispro (Human)) 100 Unit/Ml Inj 1 Dose SC DIRECTED 12/18/17 Reported USE DIRECTED PER SLIDING SCALE Lipitor (Atorvastatin Calcium) 40 Mg Tab 20 Mg PO DAILY 12/18/17 Reported Cartia Xt (Diltiazem Hcl Coated Beads) 240 Mg Cap 240 Mg PO DAILY 12/18/17 Reported Eliquis (Apixaban) 5 Mg Tab 5 Mg PO BID 12/18/17 Reported Glucophage Er (Metformin HCl) 500 Mg Tab 500 Mg PO BID 12/18/17 Reported PT STATED SHE ONLY TOOK THIS MEDICATION FOR 2 DAYS AND STOPPED TAKING IT BECAUSE IT WAS MAKING HER SICK AND HAVING DIARRHEA Escitalopram Oxalate 10 Mg Tab 10 Mg PO DAILY 12/18/17 Reported Lantus Solostar (Insulin Glargine) 100 Unit/Ml Inj 40 Units SC DAILY 09/11/17 Reported Xanax (Alprazolam) 0.25 Mg Tab 0.25 Mg PO BID PRN 09/11/17 Reported Tylenol (Acetaminophen) 500 Mg Tab 500 Mg PO Q4 PRN 09/11/17 Reported Inderal (Propranolol HCl) 20 Mg Tab 20 Mg PO DAILY 09/11/17 Reported Past medical history: As outlined in the history of chief complaint she has a history of atrial fibrillation with previous ablation and continued antiarrhythmic therapy along with anticoagulation. No previous history of myocardial infarction or congestive heart failure. Recent history of pulmonary emboli and DVT and is status post IVC filter. Large spontaneous hematoma of the right thigh while anticoagulated. She is a diabetic. Social history: She is a non-smoker Family medical history: Noncontributory Review of systems: The 10 point review of systems is otherwise negative except for the history of chief complaint. Vital Signs Past 12 Hours Date Time Temp Pulse Resp B/P (MAP) Pulse Ox O2 Delivery O2 Flow Rate FiO2 12/24/17 08:00 Room Air 12/24/17 06:53 36.6 108 19 113/71 (85) 95 Room Air 12/24/17 04:20 36.8 110 18 130/62 (84) 94 12/24/17 04:00 Room Air 12/24/17 00:40 36.6 114 20 156/71 93 Room Air 12/24/17 00:13 118 20 137/64 94 Room Air General Appearance: Alert and Oriented x3. NAD. Head: Normocephalic Atraumatic. Eyes: PERRLA, EOMI, conjunctiva and sclera clear Neck: Supple. No carotid bruits noted. No JVD. No HJD. Respiratory: Breath sounds clear to auscultation bilaterally. No w/r/r. Cardiovascular: Reg rate and rhythm. S1 and S2 noted. No murmurs, rubs, gallops. PMI non displace. Abdomen: Normal bowel sounds, soft nontender. no abdominal bruits. Extremities: No edema, no clubbing or cyanosis. distal pulses 2/4 bilaterally. Neuro: No focal deficits. Psychiatric: Normal affect. Last 24 Hours Test 12/23/17 20:10 12/23/17 20:15 12/23/17 21:30 12/24/17 06:35 White Blood Count 4.97 K/uL Red Blood Count 4.12 M/uL Hemoglobin 12.4 g/dL Hematocrit 37.7 % Mean Corpuscular Volume 91.5 fL Mean Corpuscular Hemoglobin 30.1 pg Mean Corpuscular Hemoglobin Concent 32.9 g/dl Platelet Count 158 K/uL Mean Platelet Volume 9.4 fL Neutrophils (%) (Auto) 56.3 % Lymphocytes (%) (Auto) 28.0 % Monocytes (%) (Auto) 14.5 % Eosinophils (%) (Auto) 0.8 % Basophils (%) (Auto) 0.2 % Neutrophils # (Auto) 2.80 K/uL Lymphocytes # (Auto) 1.39 K/uL Monocytes # (Auto) 0.72 K/uL Eosinophils # (Auto) 0.04 K/uL Basophils # (Auto) 0.01 K/uL RDW Standard Deviation 43.2 fL RDW Coefficient of Variation 12.9 % Immature Granulocyte % (Auto) 0.2 % Immature Granulocyte # (Auto) 0.01 K/uL Prothrombin Time 11.6 SECONDS Prothromb Time International Ratio 1.1 Activated Partial Thromboplast Time 26.5 SECONDS Partial Thromboplastin Ratio 1.0 Sodium Level 136 mmol/L Potassium Level 4.3 mmol/L Chloride Level 103 mmol/L Carbon Dioxide Level 25 mmol/L Anion Gap 8.0 mmol/L Blood Urea Nitrogen 22 mg/dl Creatinine 0.69 mg/dl Est Creatinine Clear Calc Drug Dose 60.8 ml/min Estimated GFR () 95.3 Estimated GFR (Non- 82.2 BUN/Creatinine Ratio 32.6 Random Glucose 156 mg/dl Calcium Level 9.5 mg/dl Magnesium Level 1.7 mg/dl Total Bilirubin 0.5 mg/dl Direct Bilirubin 0.2 mg/dl Aspartate Amino Transf (AST/SGOT) 12 U/L Alanine Aminotransferase (ALT/SGPT) 13 U/L Alkaline Phosphatase 69 U/L Total Protein 6.6 gm/dl Albumin 2.6 gm/dl Thyroid Stimulating Hormone (TSH) < 0.005 uIu/ml Free Thyroxine 5.60 ng/dl Bedside Troponin I < 0.030 ng/ml Urine Color YELLOW Urine Appearance CLEAR Urine pH 5.0 Urine Specific [place] 1.020 Urine Protein NEG Urine Glucose (UA) NEG Urine Ketones NEG Urine Occult Blood 3+ Urine Nitrite NEG Urine Bilirubin NEG Urine Urobilinogen NEG Urine Leukocyte Esterase TRACE Urine WBC (Auto) 1-5 /hpf Urine RBC (Auto) >30 /hpf Urine Hyaline Casts (Auto) 1-5 /lpf Urine Epithelial Cells (Auto) 20-30 /lpf Urine Bacteria (Auto) NEG Bedside Glucose 113 mg/dl Test 12/24/17 06:44 White Blood Count 4.31 K/uL Red Blood Count 3.65 M/uL Hemoglobin 11.0 g/dL Hematocrit 33.4 % Mean Corpuscular Volume 91.5 fL Mean Corpuscular Hemoglobin 30.1 pg Mean Corpuscular Hemoglobin Concent 32.9 g/dl Platelet Count 158 K/uL Mean Platelet Volume 9.4 fL Neutrophils (%) (Auto) 51.4 % Lymphocytes (%) (Auto) 31.6 % Monocytes (%) (Auto) 15.8 % Eosinophils (%) (Auto) 1.2 % Basophils (%) (Auto) 0.0 % Neutrophils # (Auto) 2.22 K/uL Lymphocytes # (Auto) 1.36 K/uL Monocytes # (Auto) 0.68 K/uL Eosinophils # (Auto) 0.05 K/uL Basophils # (Auto) 0.00 K/uL RDW Standard Deviation 43.5 fL RDW Coefficient of Variation 12.8 % Immature Granulocyte % (Auto) 0.0 % Immature Granulocyte # (Auto) 0.00 K/uL Sodium Level 138 mmol/L Potassium Level 3.8 mmol/L Chloride Level 105 mmol/L Carbon Dioxide Level 29 mmol/L Anion Gap 4.0 mmol/L Blood Urea Nitrogen 18 mg/dl Creatinine 0.64 mg/dl Est Creatinine Clear Calc Drug Dose 65.6 ml/min Estimated GFR () 97.7 Estimated GFR (Non- 84.3 BUN/Creatinine Ratio 28.7 Random Glucose 110 mg/dl Calcium Level 9.1 mg/dl Magnesium Level 1.8 mg/dl Thyroid Stimulating Hormone (TSH) < 0.005 uIu/ml Free Thyroxine 4.88 ng/dl Free Triiodothyronine > 20.00 pg/ml Echocardiogram: * -- Conclusions -- * The left ventricle is normal in size. * The left ventricle is hyperdynamic. * Ejection Fraction = 65-70%. * The right ventricular systolic function is normal. * The left atrium is mildly dilated. * The right atrium is mildly dilated. * No significant valvular pathology. Impression: 1. Persistent atrial fibrillation 2. Hyperthyroidism of undetermined etiology 3. Diabetes 4. Status post history of DVT, pulmonary emboli and IVC filter Recommendations: The patient is currently clinically stable with her atrial fibrillation. We are unlikely to be able to convert her to normal sinus rhythm until she is euthyroid. I would recommend rate control and continued anticoagulation at this time.
--- NOTE | 2017-12-24 21:13 | Progress Note ---
Medicine Progress Note Date & Time of Visit: Dec 24, 2017 . Subjective CC: Follow-up visit for hyperthyroidism, atrial fibrillation, and other problems. HPI: Admitted last night with atrial fibrillation with rapid ventricular response. Found to be hyperthyroid. Feels fairly well today. Generalized weakness. No chest pain or dyspnea. Chronic resting tremor for many years that has been attributed to essential tremor. ROS: General- no fever, no chills Resp- no cough; no shortness of breath Cardiac- as noted above in HPI GI- no nausea, no vomiting; recent loose stools, none today - no difficulty voiding . Objective Last 8 Hrs Date Time Temp Pulse Resp B/P (MAP) Pulse Ox O2 Delivery O2 Flow Rate FiO2 12/24/17 20:00 Room Air 12/24/17 19:17 37.2 116 18 121/70 (87) 95 Room Air 12/24/17 16:00 92 Room Air 12/24/17 15:25 37.0 95 16 119/76 (90) 92 Room Air Physical Exam: General- no distress Neck- no thyromegaly or thyroid nodules appreciated Lungs- clear to auscultation; no respiratory distress Cardiovascular- irregular; no murmur or gallop appreciated; no JVD; no pretibial edema Abdomen- + bowel sounds, soft, nontender Extremities- no cyanosis; no calf tenderness Neuro- alert, oriented Skin- warm & dry . Laboratory Results: Last 24 Hours Test 12/23/17 21:30 12/24/17 06:35 12/24/17 06:44 12/24/17 11:26 Urine Color YELLOW Urine Appearance CLEAR Urine pH 5.0 Urine Specific [place] 1.020 Urine Protein NEG Urine Glucose (UA) NEG Urine Ketones NEG Urine Occult Blood 3+ Urine Nitrite NEG Urine Bilirubin NEG Urine Urobilinogen NEG Urine Leukocyte Esterase TRACE Urine WBC (Auto) 1-5 /hpf Urine RBC (Auto) >30 /hpf Urine Hyaline Casts (Auto) 1-5 /lpf Urine Epithelial Cells (Auto) 20-30 /lpf Urine Bacteria (Auto) NEG Bedside Glucose 113 mg/dl 118 mg/dl White Blood Count 4.31 K/uL Red Blood Count 3.65 M/uL Hemoglobin 11.0 g/dL Hematocrit 33.4 % Mean Corpuscular Volume 91.5 fL Mean Corpuscular Hemoglobin 30.1 pg Mean Corpuscular Hemoglobin Concent 32.9 g/dl Platelet Count 158 K/uL Mean Platelet Volume 9.4 fL Neutrophils (%) (Auto) 51.4 % Lymphocytes (%) (Auto) 31.6 % Monocytes (%) (Auto) 15.8 % Eosinophils (%) (Auto) 1.2 % Basophils (%) (Auto) 0.0 % Neutrophils # (Auto) 2.22 K/uL Lymphocytes # (Auto) 1.36 K/uL Monocytes # (Auto) 0.68 K/uL Eosinophils # (Auto) 0.05 K/uL Basophils # (Auto) 0.00 K/uL RDW Standard Deviation 43.5 fL RDW Coefficient of Variation 12.8 % Immature Granulocyte % (Auto) 0.0 % Immature Granulocyte # (Auto) 0.00 K/uL Sodium Level 138 mmol/L Potassium Level 3.8 mmol/L Chloride Level 105 mmol/L Carbon Dioxide Level 29 mmol/L Anion Gap 4.0 mmol/L Blood Urea Nitrogen 18 mg/dl Creatinine 0.64 mg/dl Est Creatinine Clear Calc Drug Dose 65.6 ml/min Estimated GFR () 97.7 Estimated GFR (Non- 84.3 BUN/Creatinine Ratio 28.7 Random Glucose 110 mg/dl Calcium Level 9.1 mg/dl Magnesium Level 1.8 mg/dl Thyroid Stimulating Hormone (TSH) < 0.005 uIu/ml Free Thyroxine 4.88 ng/dl Free Triiodothyronine > 20.00 pg/ml Test 12/24/17 16:37 12/24/17 20:32 Bedside Glucose 85 mg/dl 97 mg/dl Assessment & Plan ATRIAL FIBRILLATION WITH RAPID VENTRICULAR RESPONSE History of atrial fibrillation, status post ablation. Takes sotalol and diltiazem at home as well as propranolol for essential tremor. Recent EKGs performed here in July and August demonstrated atrial paced rhythm. Presented to ED in atrial fibrillation with rapid ventricular response. Hyperthyroidism probable contributing factor. Management of hypothyroidism as discussed below. Continue sotalol and diltiazem. Consult Cardiology. HYPERTHYROIDISM Patient has a history of hypothyroidism, treated with thyroid replacement for many years. 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 Recent weakness, diarrhea, palpitations. Presented to ED in atrial fibrillation with rapid ventricular response. TSH undetectable. Free T4 5.6 ng/dl. Free T3 greater than 20 pg/ml. Underlying pathophysiology uncertain. Has not been on amiodarone. Thyroid ultrasound pending. Started on methimazole. Discuss case with Endocrinology when more data are available HYPERTENSION Continue diltiazem, propranolol, sotalol. DM TYPE 2 Usually managed with metformin, Lantus, Humalog at home. Hold metformin during hospital stay. Fasting blood sugar this morning = 113. Check hemoglobin A1c. Continue basal bolus insulin per protocol. ESSENTIAL TREMOR Continue propranolol. VTE PROPHYLAXIS / HISTORY OF PULMONARY EMBOLISM Continue apixaban. DISPOSITION Expected discharge to home. Internal Medicine follow-up with Dr. Tiara Calloway. . Current Inpatient Medications: Current Inpatient Medications Medications (Trade) Dose Ordered Sig/Herbert Route Start Time Stop Time Status Last Admin Dose Admin Sodium Chloride 1,000 ml @ 75 mls/hr [id number] IV 12/23/17 23:30 01/22/18 23:29 12/24/17 12:40 75 MLS/HR Acetaminophen (Tylenol Tab) 650 mg Q4H PRN PO 12/23/17 23:30 01/22/18 23:29 Al Hydrox/Mg Hydrox/Simethicone (Maalox Max Susp) 15 ml Q4H PRN PO 12/23/17 23:30 01/22/18 23:29 Ondansetron HCl (Zofran Inj) 4 mg Q6H PRN IV 12/23/17 23:30 01/22/18 23:29 Nitroglycerin (Nitrostat Tab) 0.4 mg UD PRN SL 12/23/17 23:30 01/22/18 23:29 Alprazolam (Xanax Tab) 0.25 mg BID PRN PO 12/23/17 23:30 01/22/18 23:29 Atorvastatin Calcium (Lipitor Tab) 20 mg DAILY PO 12/24/17 09:00 01/23/18 08:59 12/24/17 08:25 20 MG Diltiazem HCl (Cardizem Cd Cap) 240 mg DAILY PO 12/24/17 09:00 01/23/18 08:59 12/24/17 08:26 240 MG Escitalopram Oxalate (Lexapro Tab) 10 mg DAILY PO 12/24/17 09:00 01/23/18 08:59 12/24/17 08:25 10 MG Insulin Glargine (Lantus Solostar Pen) 40 units DAILY SC 12/24/17 09:00 01/23/18 08:59 12/24/17 08:31 40 UNITS Propranolol HCl (Inderal Tab) 20 mg DAILY PO 12/24/17 09:00 01/23/18 08:59 12/24/17 08:26 20 MG Apixaban (Eliquis Tab) 5 mg BID PO 12/24/17 09:00 01/23/18 08:59 12/24/17 20:03 5 MG Methimazole (Methimazole Tab) 10 mg BID PO 12/24/17 09:00 01/23/18 08:59 12/24/17 20:03 10 MG Insulin Aspart (novoLOG ASPART) SLIDING SCALE G... ACHS SC 12/24/17 07:00 01/23/18 06:59 12/24/17 08:30 1 UNITS Sotalol HCl (Betapace Tab) 240 mg DAILY PO 12/24/17 09:00 01/23/18 08:59 12/24/17 08:23 240 MG Glucose (Glucose 40% Gel) 15-30 GRAMS 15 GRAMS... UD PRN PO 12/24/17 02:30 01/23/18 02:29 Glucose (Glucose Chew Tab) 4-8 Tablets 4 Tabl... UD PRN PO 12/24/17 02:30 01/23/18 02:29 Dextrose (Dextrose 50% 50ML Syringe) 25-50ML OF 50% DW IV FOR... UD PRN IV 12/24/17 02:30 01/23/18 02:29 Glucagon (Glucagon Inj) 1 mg UD PRN SQ 12/24/17 02:30 01/23/18 02:29
[2017-12-24] MEDS: ALPRAZOLAM 0.25 MG TAB PO PRN (23:50)
[2017-12-25] VITALS (8 sets, daily range): BP systolic 121–141; BP diastolic 66–88; PULSE 71–122; TEMP 36.6–37; O2SAT 92–98; BMI 22.8
[2017-12-25] MEDS: SODIUM CHLORIDE 0.9% 1000ML 1,000 ML IV SCH ×2 (02:26→16:14)
[2017-12-25 06:12] LABS: EOS % 0.8 %; EOS ABS # 0.03 K/uL (0-0.5); HEMATOCRIT 32.7 % (37-47); HEMOGLOBIN 10.6 g/dL (12.0-16.0); LYMPH % 27.4 %; LYMPH ABS # 1.07 K/uL (1.2-3.4); MEAN CELL VOLUME 91.1 fL (80-100); MEAN CORPUSCULAR HEMOGLOBIN 29.5 pg (25-34); MEAN CORPUSCULAR HGB CONC 32.4 g/dl (32-36); MEAN PLATELET VOLUME 9.7 fL (7.4-10.4); MONO % 15.1 %; MONO ABS # 0.59 K/uL (0.11-0.59); NEUT % 56.7 %; NEUT ABS # 2.22 K/uL (1.4-6.5); PLATELET COUNT 144 K/uL (130-400); RED CELL DISTRIBUTION WIDTH CV 12.7 % (11.5-14.5); RED CELL DISTRIBUTION WIDTH SD 42.9 fL (36.4-46.3); WHITE BLOOD COUNT 3.91 K/uL (4.8-10.8)
[2017-12-25 06:40] LABS: CREATININE 0.58 mg/dl (0.60-1.20); POTASSIUM 3.6 mmol/L (3.5-5.1)
[2017-12-25 06:43] LABS: HEMOGLOBIN A1C 8.7 % (4.5-5.6)
[2017-12-25] MEDS: INSULIN ASPART 100 UNITS/ML 3 ML PEN SC SCH ×4 (07:00→20:47)
[2017-12-25] MEDS: MAGNESIUM SULFATE 1GM / D5W 100 ML IV SCH ×2 (07:22→08:20)
[2017-12-25] MEDS: SOTALOL HCL 80 MG TAB PO SCH (08:05)
[2017-12-25] MEDS: DILTIAZEM HCL 240 MG CAPCR PO SCH (08:05)
[2017-12-25] MEDS: APIXABAN 2.5 MG TAB PO SCH ×2 (08:06→20:40)
[2017-12-25] MEDS: PROPRANOLOL HCL 20 MG TAB PO SCH (08:06)
[2017-12-25] MEDS: ESCITALOPRAM OXALATE 10 MG TAB PO SCH (08:07)
[2017-12-25] MEDS: ATORVASTATIN 20 MG TAB PO SCH (08:07)
[2017-12-25] MEDS: METHIMAZOLE 5 MG TAB PO SCH ×2 (08:08→20:40)
[2017-12-25] MEDS: INSULIN GLARGINE SOLOSTAR 100 UNITS/ML 3 ML PEN SC SCH (08:18)
--- NOTE | 2017-12-25 10:00 | Cardiology Follow-Up ---
Subjective General Date of Service: Dec 25, 2017. Chief Complaint: Atrial fibrillation Pt evaluation today including: conversation w/ patient, physical exam, chart review, lab review, review of studies, review of inpatient medication list History of Present Illness Patient seen and examined. Notes feeling poorly for about the last month. Her main complaint this morning is that of bilateral great toe pain, unable to tolerate the sheets touching her toes. Generalized weakness. Laboratory work on presentation revealed evidence of hyperthyroidism for which she was started on methimazole. Chronic tremor, taking propanolol 20 mg once per day. She describes a history of atrial fibrillation for which she is prescribed sotalol 120 mg twice per day and diltiazem 240 mg in the morning. She is status post ablation. She is status post permanent pacemaker implantation which is not been interrogated recently. She is anticoagulated with Eliquis which she has taken for about the last month without difficulty/interruption. Data: December 24, 2017 TTE Interpretation Summary ([facility], Dr. Su): The left ventricle is normal in size. The left ventricle is hyperdynamic. Ejection Fraction = 65-70 %. The right ventricular systolic function is normal. The left atrium is mildly dilated. The right atrium is mildly dilated. No significant valvular pathology. EKG this morning reveals atrial fibrillation with a rapid ventricular response. Ventricular rate is 128 bpm. Nonspecific T-wave abnormality. QTc is 470 ms Continuous telemetry monitoring reveals atrial fibrillation with a rapid ventricular response. Current rate is around 110-120 bpm. There are short proximal ends up to 150 bpm. No bradycardia. No paced beats. No periods of sinus. Allergies Coded Allergies: Levofloxacin (Verified Adverse Reaction, Mild, NAUSEA, 12/23/17) Propofol (Verified Adverse Reaction, Mild, NAUSEA, 12/23/17) Social History Smoking Status: Never Smoker Hx Tobacco Use In Past Year?: No Hx Alcohol Use - Type And Amou: No Hx Substance Use - Type And Am: No Problem List Medical Problems: (1) Acute bronchitis with bronchospasm Status: Acute (2) Anemia Status: Acute (3) Anticoagulated Status: Acute (4) Atrial flutter with rapid ventricular response Status: Acute (5) Dehydration Status: Acute (6) Frequent falls Status: Acute (7) Generalized weakness Status: Acute (8) Head trauma Status: Acute (9) Hyperthyroidism Status: Acute (10) Hypoxemia Status: Acute (11) Retroperitoneal hematoma Status: Acute (12) Tremor Status: Acute (13) UTI (urinary tract infection) Status: Acute Physical Exam Vital Signs Last Vital Signs Documentation Date Time Temp Pulse Resp B/P (MAP) Pulse Ox O2 Delivery O2 Flow Rate FiO2 12/25/17 08:19 36.8 122 18 139/76 (97) 95 Room Air Physical Exam Constitutional: Level of Distress: NAD, chronically ill Psychiatric: Mental Status: active & alert, anxious Orientation: to time, to place, to person Memory: recent memory normal, remote memory normal Head: normocephalic, atraumatic Eyes: Pupils: PERRLA Neck: pertinent finding (Normal JVP) Lungs: Respiratory effort: no dyspnea Auscultation: breath sounds normal, no wheezing, no rales/crackles, no rhonchi Cardiovascular: Heart Auscultation: no murmurs, no rubs, tachycardia, irregular rate rhythm Peripheral Pulses: Radial Pulse: normal on the left, normal on the right Dorsalis Pedis Pulse: decreased on the left, decreased on the right Abdomen: Bowel Sounds: normal Inspection & Palpation: soft, non-distended, no masses Extremities: no cyanosis, no edema, no clubbing Neurologic: Cranial Nerves: grossly intact Additional Comments: Tremor, face and all extremities. Assessment and Plan Assessment and Plan Persistent, seemingly symptomatic, atrial fibrillation with a rapid ventricular response. Anticoagulated Eliquis for at least the last 4 weeks. Status post pacemaker (Medtronic) implantation Hyperthyroidism, undergoing of undetermined etiology Type II diabetes mellitus Status post DVT, pulmonary emboli and IVC filter RECOMMENDATIONS/PLAN: Change sotalol dosing from 240 mg once a day back to her normal dose of 120 mg twice per day. Continue diltiazem 240 mg per day. Discontinue propanolol. Add atenolol staring at 25 mg twice per day for rate control of the atrial fibrillation, hyperthyroid symptoms and the essential tremor Continue uninterrupted anticoagulation. Interrogate pacemaker (Medtronic) Patient was seen and personally examined. Patient spontaneously converted to sinus rhythm earlier this morning after above note. Recommendations will continue medications as above will ultimately be may be able to reduce beta- prudencio (atenolol) as thyroid becomes better controlled. Physical examination is notable for possible gouty flare of the right great toe Cole Holliday MD Laboratory Results Last 24 Hours Test 12/24/17 11:26 12/24/17 16:37 12/24/17 20:32 12/25/17 05:30 Bedside Glucose 118 mg/dl 85 mg/dl 97 mg/dl White Blood Count 3.91 K/uL Red Blood Count 3.59 M/uL Hemoglobin 10.6 g/dL Hematocrit 32.7 % Mean Corpuscular Volume 91.1 fL Mean Corpuscular Hemoglobin 29.5 pg Mean Corpuscular Hemoglobin Concent 32.4 g/dl Platelet Count 144 K/uL Mean Platelet Volume 9.7 fL Neutrophils (%) (Auto) 56.7 % Lymphocytes (%) (Auto) 27.4 % Monocytes (%) (Auto) 15.1 % Eosinophils (%) (Auto) 0.8 % Basophils (%) (Auto) 0.0 % Neutrophils # (Auto) 2.22 K/uL Lymphocytes # (Auto) 1.07 K/uL Monocytes # (Auto) 0.59 K/uL Eosinophils # (Auto) 0.03 K/uL Basophils # (Auto) 0.00 K/uL RDW Standard Deviation 42.9 fL RDW Coefficient of Variation 12.7 % Immature Granulocyte % (Auto) 0.0 % Immature Granulocyte # (Auto) 0.00 K/uL Sodium Level 140 mmol/L Potassium Level 3.6 mmol/L Chloride Level 107 mmol/L Carbon Dioxide Level 26 mmol/L Anion Gap 7.0 mmol/L Blood Urea Nitrogen 16 mg/dl Creatinine 0.58 mg/dl Est Creatinine Clear Calc Drug Dose 72.4 ml/min Estimated GFR () 100.9 Estimated GFR (Non- 87.1 BUN/Creatinine Ratio 28.2 Random Glucose 83 mg/dl Estimated Average Glucose 203 mg/dl Hemoglobin A1c 8.7 % Calcium Level 9.0 mg/dl Magnesium Level 1.5 mg/dl Test 12/25/17 06:31 Bedside Glucose 86 mg/dl
[2017-12-25] MEDS ORDERED: DICLOFENAC SOD 1% GEL 100 GM TUBE EXT ONE (11:36)
[2017-12-25] MEDS ORDERED: COLCHICINE 0.6 MG TAB PO ONE ×2 (11:45→18:45)
[2017-12-25] MEDS ORDERED: HYDROCORTISONE IV 100 MG in SYRINGE 0 ML IV ONE (14:15)
[2017-12-25] MEDS ORDERED: OXYCODONE HCL IR 5 MG TAB (IMMEDIATE RELEASE) PO ONE (14:41)
[2017-12-25] MEDS ORDERED: OXYCODONE HCL IR 5 MG TAB (IMMEDIATE RELEASE) PO PRN (14:45)
--- NOTE | 2017-12-25 19:02 | Progress Note ---
Medicine Progress Note Date & Time of Visit: Dec 25, 2017 at 11:30 . Subjective CC: Follow-up visit for hyperthyroidism, atrial fibrillation, and other problems. HPI: Converted to NSR this morning. Ongoing generalized weakness. No chest pain or dyspnea. No cough or shortness of breath. No nausea, vomiting, diarrhea. No urinary symptoms. Chronic resting tremor for many years that has been attributed to essential tremor, but worse than baseline. Onset bilateral great toe pain this morning- no history of gout. No fever. Discouraged. ROS: As noted above in HPI. . Objective Last 8 Hrs Date Time Temp Pulse Resp B/P (MAP) Pulse Ox O2 Delivery O2 Flow Rate FiO2 12/25/17 16:01 36.7 76 16 141/70 (93) 98 Room Air 12/25/17 16:00 Room Air 12/25/17 12:00 Room Air 12/25/17 11:34 36.9 76 18 134/88 (103) 96 Room Air Physical Exam: General- no distress Neck- no thyromegaly or thyroid nodules appreciated Lungs- clear to auscultation; no respiratory distress Cardiovascular- regular; no murmur or gallop appreciated; no JVD; no pretibial edema Abdomen- + bowel sounds, soft, nontender Extremities- no cyanosis; no calf tenderness; erythema, swelling, tenderness bilateral first MTP joints Neuro- alert, oriented Skin- warm & dry . Laboratory Results: Last 24 Hours Test 12/24/17 20:32 12/25/17 05:30 12/25/17 06:31 12/25/17 11:06 Bedside Glucose 97 mg/dl 86 mg/dl 290 mg/dl White Blood Count 3.91 K/uL Red Blood Count 3.59 M/uL Hemoglobin 10.6 g/dL Hematocrit 32.7 % Mean Corpuscular Volume 91.1 fL Mean Corpuscular Hemoglobin 29.5 pg Mean Corpuscular Hemoglobin Concent 32.4 g/dl Platelet Count 144 K/uL Mean Platelet Volume 9.7 fL Neutrophils (%) (Auto) 56.7 % Lymphocytes (%) (Auto) 27.4 % Monocytes (%) (Auto) 15.1 % Eosinophils (%) (Auto) 0.8 % Basophils (%) (Auto) 0.0 % Neutrophils # (Auto) 2.22 K/uL Lymphocytes # (Auto) 1.07 K/uL Monocytes # (Auto) 0.59 K/uL Eosinophils # (Auto) 0.03 K/uL Basophils # (Auto) 0.00 K/uL RDW Standard Deviation 42.9 fL RDW Coefficient of Variation 12.7 % Immature Granulocyte % (Auto) 0.0 % Immature Granulocyte # (Auto) 0.00 K/uL Erythrocyte Sedimentation Rate 30 mm/hr Sodium Level 140 mmol/L Potassium Level 3.6 mmol/L Chloride Level 107 mmol/L Carbon Dioxide Level 26 mmol/L Anion Gap 7.0 mmol/L Blood Urea Nitrogen 16 mg/dl Creatinine 0.58 mg/dl Est Creatinine Clear Calc Drug Dose 72.4 ml/min Estimated GFR () 100.9 Estimated GFR (Non- 87.1 BUN/Creatinine Ratio 28.2 Random Glucose 83 mg/dl Estimated Average Glucose 203 mg/dl Hemoglobin A1c 8.7 % Uric Acid 5.0 mg/dl Calcium Level 9.0 mg/dl Magnesium Level 1.5 mg/dl Test 12/25/17 16:18 Bedside Glucose 207 mg/dl Assessment & Plan ATRIAL FIBRILLATION WITH RAPID VENTRICULAR RESPONSE History of atrial fibrillation, status post ablation. Takes sotalol and diltiazem at home as well as propranolol for essential tremor. Recent EKGs performed here in July and August demonstrated atrial paced rhythm. Presented to ED in atrial fibrillation with rapid ventricular response. Hyperthyroidism probable contributing factor. Management of hyperthyroidism as discussed below. Cardiology consulted. Continue sotalol and diltiazem. Atenolol added to regimen. Hypomagnesemia being corrected. Converted to NSR. Continue anticoagulation with apixaban. Further management per Cardiology. HYPERTHYROIDISM Patient has a history of hypothyroidism, treated with thyroid replacement for many years. I replacement tapered and discontinued about 4-5 years ago by her nursing specialist in [place]. Recent weakness, diarrhea, palpitations, weight loss, nail changes. Presented to ED in atrial fibrillation with rapid ventricular response. TSH undetectable. Free T4 5.6 ng/dl. Free T3 greater than 20 pg/ml. Underlying pathophysiology uncertain. Has not been on amiodarone. Thyroid ultrasound did not show any goiter or nodules; gland was noted to be hyperemic consistent with thyroiditis. Started on methimazole. Case reviewed with Endocrinology; they will see her for outpatient follow-up. HYPERTENSION Continue diltiazem, propranolol, sotalol. DM TYPE 2 Usually managed with metformin, Lantus, Humalog at home. Hemoglobin A1c equal 8.7. Hold metformin during hospital stay. Fasting blood sugar this morning = 86. Anticipate fluctuating blood sugars in light of acute illness, hyperthyroidism, steroid therapy. Continue basal bolus insulin per protocol. ESSENTIAL TREMOR Diagnosed years ago when patient was euthyroid on thyroid replacement. Tremor now worse than baseline. Management of hyperthyroidism as discussed above. GOUT Inflammation of bilateral first MTP joints consistent with gout flare. Gout has been associated with hyperthyroidism. Serum uric acid ordered. Best to avoid systemic nonsteroidals because of apixaban therapy and history of bleeding complications in the past. Try 1 or 2 doses of colchicine as tolerated. Try topical diclofenac. Steroids may be beneficial for both thyrotoxicosis and gout, albeit at the escalante of worsening glycemic control. We will give 2 doses of hydrocortisone today, followed by prednisone taper. VTE PROPHYLAXIS / HISTORY OF PULMONARY EMBOLISM Continue apixaban. DISPOSITION Patient has experienced a series of illnesses over the past several months with periods of functional decline in recovery. She has had residual right lower extremity weakness due to compartment syndrome of her right lower extremity from a hematoma. Now with worsening weakness secondary to hyperthyroidism. Anticipate need for skilled care or inpatient rehab. PT/OT evaluations be requested. Consult Case management. Internal Medicine follow-up with Dr. Tiara Calloway. . Current Inpatient Medications: Current Inpatient Medications Medications (Trade) Dose Ordered Sig/Herbert Route Start Time Stop Time Status Last Admin Dose Admin Acetaminophen (Tylenol Tab) 650 mg Q4H PRN PO 12/23/17 23:30 01/22/18 23:29 Al Hydrox/Mg Hydrox/Simethicone (Maalox Max Susp) 15 ml Q4H PRN PO 12/23/17 23:30 01/22/18 23:29 Ondansetron HCl (Zofran Inj) 4 mg Q6H PRN IV 12/23/17 23:30 01/22/18 23:29 Nitroglycerin (Nitrostat Tab) 0.4 mg UD PRN SL 12/23/17 23:30 01/22/18 23:29 Alprazolam (Xanax Tab) 0.25 mg BID PRN PO 12/23/17 23:30 01/22/18 23:29 12/24/17 23:50 0.25 MG Atorvastatin Calcium (Lipitor Tab) 20 mg DAILY PO 12/24/17 09:00 01/23/18 08:59 12/25/17 08:07 20 MG Diltiazem HCl (Cardizem Cd Cap) 240 mg DAILY PO 12/24/17 09:00 01/23/18 08:59 12/25/17 08:05 240 MG Escitalopram Oxalate (Lexapro Tab) 10 mg DAILY PO 12/24/17 09:00 01/23/18 08:59 12/25/17 08:07 10 MG Insulin Glargine (Lantus Solostar Pen) 40 units DAILY SC 12/24/17 09:00 01/23/18 08:59 12/25/17 08:18 40 UNITS Apixaban (Eliquis Tab) 5 mg BID PO 12/24/17 09:00 01/23/18 08:59 12/25/17 08:06 5 MG Methimazole (Methimazole Tab) 10 mg BID PO 12/24/17 09:00 01/23/18 08:59 12/25/17 08:08 10 MG Insulin Aspart (novoLOG ASPART) SLIDING SCALE G... ACHS SC 12/24/17 07:00 01/23/18 06:59 12/25/17 16:23 4 UNITS Glucose (Glucose 40% Gel) 15-30 GRAMS 15 GRAMS... UD PRN PO 12/24/17 02:30 01/23/18 02:29 Glucose (Glucose Chew Tab) 4-8 Tablets 4 Tabl... UD PRN PO 12/24/17 02:30 01/23/18 02:29 Dextrose (Dextrose 50% 50ML Syringe) 25-50ML OF 50% DW IV FOR... UD PRN IV 12/24/17 02:30 01/23/18 02:29 Glucagon (Glucagon Inj) 1 mg UD PRN SQ 12/24/17 02:30 01/23/18 02:29 Sotalol HCl (Betapace Tab) 120 mg BID PO 12/26/17 09:00 01/23/18 08:59 Atenolol (Tenormin Tab) 25 mg BID PO 12/25/17 21:00 01/24/18 20:59 Diclofenac Sodium (Voltaren 1% Top Gel) 1 appln BID EXT 12/25/17 21:00 01/24/18 20:59 Oxycodone HCl (Roxicodone Immediate Rel Tab) 5 mg Q6H PRN PO 12/25/17 14:45 01/08/18 14:44 Hydrocortisone Sodium Succinate 50 mg/Syringe 1 ml @ 4 mls/min TODAY@2200 ONCE IV 12/25/17 22:00 12/25/17 22:01 Prednisone (PredniSONE TAB) 40 mg DAILY PO 12/26/17 09:00 12/27/17 09:01 Prednisone (PredniSONE TAB) 30 mg DAILY PO 12/28/17 09:00 12/29/17 09:01 Prednisone (PredniSONE TAB) 20 mg DAILY PO 12/30/17 09:00 01/29/18 08:59 Insulin Aspart (novoLOG ASPART) SLIDING SCALE G... 0100 ONCE SC 12/26/17 01:00 12/26/17 01:01
[2017-12-25] MEDS: DICLOFENAC SOD 1% GEL 100 GM TUBE EXT SCH (20:41)
[2017-12-25] MEDS ORDERED: COLCHICINE 0.6 MG TAB PO SCH (21:00)
[2017-12-25] MEDS: MAGNESIUM OXIDE 400 MG TAB PO SCH (21:49)
[2017-12-25] MEDS ORDERED: HYDROCORTISONE IV 50 MG in SYRINGE 0 ML IV ONE (22:00)
[2017-12-26] MEDS ORDERED: INSULIN ASPART 100 UNITS/ML 3 ML PEN SC ONE (01:00)
[2017-12-26 04:00] VITALS: BP 137/72; PULSE 101; TEMP 36.5; O2SAT 94
[2017-12-26 06:15] LABS: HEMATOCRIT 31.1 % (37-47); HEMOGLOBIN 10.5 g/dL (12.0-16.0); IG# 0.01 K/uL (0.00-0.02); LYMPH ABS # 0.92 K/uL (1.2-3.4); MEAN CELL VOLUME 90.4 fL (80-100); MEAN CORPUSCULAR HEMOGLOBIN 30.5 pg (25-34); MEAN CORPUSCULAR HGB CONC 33.8 g/dl (32-36); MEAN PLATELET VOLUME 9.7 fL (7.4-10.4); MONO % 16.1 %; MONO ABS # 0.74 K/uL (0.11-0.59); NEUT % 63.7 %; NEUT ABS # 2.92 K/uL (1.4-6.5); PLATELET COUNT 151 K/uL (130-400); RED CELL DISTRIBUTION WIDTH CV 12.5 % (11.5-14.5); RED CELL DISTRIBUTION WIDTH SD 41.4 fL (36.4-46.3); WHITE BLOOD COUNT 4.59 K/uL (4.8-10.8)
[2017-12-26 06:49] LABS: CALCIUM 8.9 mg/dl (8.5-10.1); CREATININE 0.64 mg/dl (0.60-1.20)
[2017-12-26] MEDS: DICLOFENAC SOD 1% GEL 100 GM TUBE EXT SCH ×2 (07:43→20:23)
[2017-12-26] MEDS: DILTIAZEM HCL 240 MG CAPCR PO SCH (07:43)
[2017-12-26] MEDS: SOTALOL HCL 80 MG TAB PO SCH ×2 (07:43→20:24)
[2017-12-26] MEDS: APIXABAN 2.5 MG TAB PO SCH ×2 (07:44→20:24)
[2017-12-26] MEDS: MAGNESIUM OXIDE 400 MG TAB PO SCH ×2 (07:44→20:25)
[2017-12-26] MEDS: ATORVASTATIN 20 MG TAB PO SCH (07:44)
[2017-12-26] MEDS: ESCITALOPRAM OXALATE 10 MG TAB PO SCH (07:44)
[2017-12-26] MEDS: METHIMAZOLE 5 MG TAB PO SCH ×2 (07:45→20:25)
[2017-12-26] MEDS: INSULIN ASPART 100 UNITS/ML 3 ML PEN SC SCH ×4 (07:50→20:36)
[2017-12-26] MEDS: INSULIN GLARGINE SOLOSTAR 100 UNITS/ML 3 ML PEN SC SCH (07:51)
[2017-12-26 07:59] VITALS: BP 165/76; PULSE 77; TEMP 36.4; O2SAT 94
[2017-12-26] MEDS: SENNA 8.6 MG TAB PO SCH ×2 (08:59→20:25)
--- NOTE | 2017-12-26 10:38 | Cardiology Follow-Up ---
Subjective General Date of Service: December 26, 2017. Chief Complaint: Atrial fibrillation Pt evaluation today including: conversation w/ patient, physical exam, chart review, lab review, review of studies, review of inpatient medication list History of Present Illness Patient seen and examined. Patient notes feeling significantly better today as compared to yesterday. Denies chest pain, palpitations, dyspnea, orthopnea, PND , or peripheral edema The bilateral great toe pain "is essentially gone." Continuous telemetry monitoring reveals spontaneous conversion from atrial fibrillation with a rapid ventricular response back to sinus rhythm on 2017 at 10:37 AM. She has been maintaining sinus rhythm since conversion. Rhythm is currently sinus at 82 bpm. There are occasional to frequent premature atrial complexes. No ventricular arrhythmias. December 24, 2017 TTE Interpretation Summary ([facility], Dr. Su): The left ventricle is normal in size. The left ventricle is hyperdynamic. Ejection Fraction = 65-70 %. The right ventricular systolic function is normal. The left atrium is mildly dilated. The right atrium is mildly dilated. No significant valvular pathology. Allergies Coded Allergies: Levofloxacin (Verified Adverse Reaction, Mild, NAUSEA, 12/23/17) Propofol (Verified Adverse Reaction, Mild, NAUSEA, 12/23/17) Social History Smoking Status: Never Smoker Hx Tobacco Use In Past Year?: No Hx Alcohol Use - Type And Amou: No Hx Substance Use - Type And Am: No Problem List Medical Problems: (1) Acute bronchitis with bronchospasm Status: Acute (2) Anemia Status: Acute (3) Anticoagulated Status: Acute (4) Atrial flutter with rapid ventricular response Status: Acute (5) Dehydration Status: Acute (6) Frequent falls Status: Acute (7) Generalized weakness Status: Acute (8) Head trauma Status: Acute (9) Hyperthyroidism Status: Acute (10) Hypoxemia Status: Acute (11) Retroperitoneal hematoma Status: Acute (12) Tremor Status: Acute (13) UTI (urinary tract infection) Status: Acute Physical Exam Vital Signs Last Vital Signs Documentation Date Time Temp Pulse Resp B/P (MAP) Pulse Ox O2 Delivery O2 Flow Rate FiO2 12/26/17 08:00 Room Air 12/26/17 07:59 36.4 77 20 165/76 (105) 94 Physical Exam Constitutional: Level of Distress: NAD, chronically ill Psychiatric: Mental Status: active & alert, anxious Orientation: to time, to place, to person Memory: recent memory normal, remote memory normal Head: normocephalic, atraumatic Eyes: Pupils: PERRLA Neck: pertinent finding (Normal JVP) Lungs: Respiratory effort: no dyspnea Auscultation: breath sounds normal, no wheezing, no rales/crackles, no rhonchi Cardiovascular: Heart Auscultation: no murmurs, no rubs, I/ KIARA, irregular rate rhythm Peripheral Pulses: Radial Pulse: normal on the left, normal on the right Dorsalis Pedis Pulse: decreased on the left, decreased on the right Abdomen: Bowel Sounds: normal Inspection & Palpation: soft, non-distended, no masses Extremities: no cyanosis, no edema, no clubbing Neurologic: Cranial Nerves: grossly intact Assessment and Plan Assessment and Plan Symptomatic atrial fibrillation with a rapid ventricular response status post spontaneous conversion back to sinus on 12/25/2017 at 10:37 AM. Hyperthyroidism, managed by the hospitalist service and eventually Endocrinology. Chronic anticoagulation with Eliquis Status post prior permanent pacemaker (Medtronic) implantation Type II diabetes mellitus Status post DVT, pulmonary emboli and IVC filter RECOMMENDATIONS/PLAN: EKG to assess QTc. Continue sotalol 120 mg twice per day, diltiazem 240 mg per day, atenolol 25 mg twice per day, and Eliquis anticoagulation. Increase activity as tolerated. Patient was seen and personally examined. She feels much more comfortable today and has remained in sinus rhythm overnight overall impressions 1. Paroxysmal atrial fibrillation now returned to sinus rhythm on antiarrhythmic therapy with sotalol and diltiazem 2. 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 Hyperthyroid urgency with resultant arrhythmic break being managed Cole Holliday MD Laboratory Results Last 24 Hours Test 12/25/17 11:06 12/25/17 16:18 12/25/17 20:02 12/26/17 01:04 Bedside Glucose 290 mg/dl 207 mg/dl 235 mg/dl 281 mg/dl Test 12/26/17 05:49 12/26/17 07:21 White Blood Count 4.59 K/uL Red Blood Count 3.44 M/uL Hemoglobin 10.5 g/dL Hematocrit 31.1 % Mean Corpuscular Volume 90.4 fL Mean Corpuscular Hemoglobin 30.5 pg Mean Corpuscular Hemoglobin Concent 33.8 g/dl Platelet Count 151 K/uL Mean Platelet Volume 9.7 fL Neutrophils (%) (Auto) 63.7 % Lymphocytes (%) (Auto) 20.0 % Monocytes (%) (Auto) 16.1 % Eosinophils (%) (Auto) 0.0 % Basophils (%) (Auto) 0.0 % Neutrophils # (Auto) 2.92 K/uL Lymphocytes # (Auto) 0.92 K/uL Monocytes # (Auto) 0.74 K/uL Eosinophils # (Auto) 0.00 K/uL Basophils # (Auto) 0.00 K/uL RDW Standard Deviation 41.4 fL RDW Coefficient of Variation 12.5 % Immature Granulocyte % (Auto) 0.2 % Immature Granulocyte # (Auto) 0.01 K/uL Sodium Level 140 mmol/L Potassium Level 4.0 mmol/L Chloride Level 106 mmol/L Carbon Dioxide Level 27 mmol/L Anion Gap 7.0 mmol/L Blood Urea Nitrogen 21 mg/dl Creatinine 0.64 mg/dl Est Creatinine Clear Calc Drug Dose 65.6 ml/min Estimated GFR () 97.7 Estimated GFR (Non- 84.3 BUN/Creatinine Ratio 32.8 Random Glucose 241 mg/dl Calcium Level 8.9 mg/dl Magnesium Level 1.9 mg/dl Free Thyroxine 4.95 ng/dl Free Triiodothyronine 15.35 pg/ml Bedside Glucose 246 mg/dl
[2017-12-26 11:58] VITALS: BP 166/72; PULSE 76; TEMP 36.6; O2SAT 93
[2017-12-26] MEDS ORDERED: MAGNESIUM HYDROXIDE SUSP 30 ML UDC PO ONE (12:30)
[2017-12-26] MEDS ORDERED: MAGNESIUM HYDROXIDE SUSP 30 ML UDC PO PRN (12:30)
[2017-12-26 16:00] VITALS: BP 158/72; PULSE 80; TEMP 36.5; O2SAT 93
[2017-12-26] MEDS ORDERED: INSULIN ASPART 100 UNITS/ML 3 ML PEN SC STA (16:25)
[2017-12-26] MEDS ORDERED: MAGNESIUM SULFATE 1GM / D5W 100 ML IV STA ×2 (17:53→23:13)
--- NOTE | 2017-12-26 17:58 | Progress Note ---
Internal Med Progress Note Date of Service: December 26, 2017. Provider Documentation: SUBJECTIVE: Patient has tremors but denies any worsening symptom than before. She attributes to essential tremors. Patient denies pain or shortness of breath OBJECTIVE: General- no distress Neck - no thyromegaly or thyroid nodules appreciated Lungs - clear to auscultation; no respiratory distress Cardiovascular- regular; no murmur or gallop appreciated; no JVD; no pretibial edema Abdomen - positive bowel sounds, soft, nontender Extremities- no cyanosis; no calf tenderness Neuro - alert, oriented Skin - warm & dry ASSESSMENT & PLAN: HYPERTHYROIDISM Patient has a history of hypothyroidism, treated with thyroid replacement for many years. Thyroid replacement discontinued about 4-5 years ago by her account receivable associate in [place]. Recent weakness, diarrhea, palpitations, weight loss, nail changes. Presented to ED in atrial fibrillation with rapid ventricular response. TSH undetectable. Free T4 5.6 ng/dl. Free T3 greater than 20 pg/ml. Underlying pathophysiology uncertain. Has not been on amiodarone. Thyroid ultrasound did not show any goiter or nodules; gland was noted to be hyperemic consistent with thyroiditis. Started on methimazole - continue Case reviewed with Endocrinology; they will see her for outpatient follow-up. ESSENTIAL TREMOR Diagnosed years ago when patient was euthyroid on thyroid replacement. Management of hyperthyroidism ATRIAL FIBRILLATION WITH RAPID VENTRICULAR RESPONSE / Status post prior permanent pacemaker (Medtronic) implantation Symptomatic atrial fibrillation with a rapid ventricular response status post spontaneous conversion back to sinus on 12/25/2017 at 10:37 AM currently in normal sinus rhythm continue antiarrhythmic and rate control therapy with sotalol 120 mg twice per day and diltiazem 240 mg per day and atenolol 25 mg twice per day Continue anticoagulation with apixaban. Management of Hyperthyroidism HYPERTENSION Continue diltiazem, propranolol, sotalol. DM TYPE 2 Usually managed with metformin, Lantus, Humalog at home. Hemoglobin A1c equal 8.7. Hold metformin during hospital stay. On insulin, adjust as needed while on steroids GOUT inflammation of bilateral first MTP joints consistent with gout flare. Gout has been associated with hyperthyroidism. Prednisone for both thyrotoxicosis and gout topical diclofenac. VTE PROPHYLAXIS / HISTORY OF PULMONARY EMBOLISM Continue apixaban. DISPOSITION Anticipate need for skilled care or inpatient rehab. continue PT/OT evaluations Vital Signs: Date Time Temp Pulse Resp B/P (MAP) Pulse Ox O2 Delivery O2 Flow Rate FiO2 12/26/17 16:00 36.5 80 16 158/72 (100) 93 Room Air 12/26/17 16:00 Room Air 12/26/17 12:00 Room Air 12/26/17 11:58 36.6 76 18 166/72 (103) 93 Room Air 12/26/17 08:00 Room Air 12/26/17 07:59 36.4 77 20 165/76 (105) 94 Room Air 12/26/17 04:00 94 Room Air 12/26/17 04:00 36.5 101 18 137/72 (93) 94 Room Air 12/26/17 00:00 Room Air 12/25/17 23:48 36.7 84 17 137/69 (91) 92 Room Air 12/25/17 20:00 93 Room Air 12/25/17 19:06 36.8 71 18 133/66 (88) 93 Room Air Lab Results: Results Past 24 Hours Test 12/25/17 20:02 12/26/17 01:04 12/26/17 05:49 12/26/17 07:21 Range/Units Bedside Glucose 235 281 246 70-90 mg/dl White Blood Count 4.59 4.8-10.8 K/uL Red Blood Count 3.44 4.2-5.4 M/uL Hemoglobin 10.5 12.0-16.0 g/dL Hematocrit 31.1 37-47 % Mean Corpuscular Volume 90.4 80-100 fL Mean Corpuscular Hemoglobin 30.5 25-34 pg Mean Corpuscular Hemoglobin Concent 33.8 32-36 g/dl Platelet Count 151 130-400 K/uL Mean Platelet Volume 9.7 7.4-10.4 fL Neutrophils (%) (Auto) 63.7 % Lymphocytes (%) (Auto) 20.0 % Monocytes (%) (Auto) 16.1 % Eosinophils (%) (Auto) 0.0 % Basophils (%) (Auto) 0.0 % Neutrophils # (Auto) 2.92 1.4-6.5 K/uL Lymphocytes # (Auto) 0.92 1.2-3.4 K/uL Monocytes # (Auto) 0.74 0.11-0.59 K/uL Eosinophils # (Auto) 0.00 0-0.5 K/uL Basophils # (Auto) 0.00 0-0.2 K/uL RDW Standard Deviation 41.4 36.4-46.3 fL RDW Coefficient of Variation 12.5 11.5-14.5 % Immature Granulocyte % (Auto) 0.2 % Immature Granulocyte # (Auto) 0.01 0.00-0.02 K/uL Sodium Level 140 136-145 mmol/L Potassium Level 4.0 3.5-5.1 mmol/L Chloride Level 106 98-107 mmol/L Carbon Dioxide Level 27 21-32 mmol/L Anion Gap 7.0 3-11 mmol/L Blood Urea Nitrogen 21 7-18 mg/dl Creatinine 0.64 0.60-1.20 mg/dl Est Creatinine Clear Calc Drug Dose 65.6 ml/min Estimated GFR () 97.7 Estimated GFR (Non- 84.3 BUN/Creatinine Ratio 32.8 10-20 Random Glucose 241 70-99 mg/dl Calcium Level 8.9 8.5-10.1 mg/dl Magnesium Level 1.9 1.8-2.4 mg/dl Free Thyroxine 4.95 0.80-1.60 ng/dl Free Triiodothyronine 15.35 2.30-4.20 pg/ml Test 12/26/17 11:28 12/26/17 16:18 Range/Units Bedside Glucose 201 345 70-90 mg/dl Microbiology Results 12/26/17 Shiga Toxin Test, Received Pending 12/26/17 Stool Culture, Received Pending
[2017-12-26 19:17] VITALS: BP 179/76; PULSE 82; TEMP 36.6; O2SAT 95
[2017-12-26] MEDS: ALPRAZOLAM 0.25 MG TAB PO PRN (21:32)
[2017-12-26 23:10] VITALS: BP 159/80; PULSE 93; TEMP 36.7; O2SAT 95
[2017-12-26] MEDS ORDERED: DILTIAZEM HCL 240 MG CAPCR PO ONE (23:13)
[2017-12-27] VITALS (7 sets, daily range): BP systolic 130–150; BP diastolic 65–87; PULSE 91–104; TEMP 36.4–37; O2SAT 93–96; Ht 167.6 cm; Wt 64.3 kg
[2017-12-27 06:44] LABS: ALBUMIN 2.2 gm/dl (3.4-5.0); CALCIUM 8.6 mg/dl (8.5-10.1); CREATININE 0.58 mg/dl (0.60-1.20); POTASSIUM 3.8 mmol/L (3.5-5.1)
[2017-12-27 06:47] LABS: PHOSPHORUS 2.5 mg/dl (2.5-4.9); TOTAL PROTEIN 5.4 gm/dl (6.4-8.2)
[2017-12-27] MEDS: DICLOFENAC SOD 1% GEL 100 GM TUBE EXT SCH ×2 (08:10→19:28)
[2017-12-27] MEDS: APIXABAN 2.5 MG TAB PO SCH ×2 (08:11→19:32)
[2017-12-27] MEDS: METHIMAZOLE 5 MG TAB PO SCH ×2 (08:11→19:32)
[2017-12-27] MEDS: MAGNESIUM OXIDE 400 MG TAB PO SCH (08:11)
[2017-12-27] MEDS: SENNA 8.6 MG TAB PO SCH ×2 (08:13→19:32)
[2017-12-27] MEDS: ATORVASTATIN 20 MG TAB PO SCH (08:14)
[2017-12-27] MEDS: ESCITALOPRAM OXALATE 10 MG TAB PO SCH (08:14)
[2017-12-27] MEDS: SOTALOL HCL 80 MG TAB PO SCH ×2 (08:14→19:32)
[2017-12-27] MEDS: INSULIN ASPART 100 UNITS/ML 3 ML PEN SC SCH ×4 (08:18→21:41)
[2017-12-27] MEDS: INSULIN GLARGINE SOLOSTAR 100 UNITS/ML 3 ML PEN SC SCH (08:19)
--- NOTE | 2017-12-27 10:00 | Cardiology Follow-Up ---
Subjective General Date of Service: December 27, 2017. Chief Complaint: Atrial fibrillation Pt evaluation today including: conversation w/ patient, physical exam, chart review, lab review, review of studies, review of inpatient medication list History of Present Illness Patient seen and examined. Back in atrial fibrillation as of 12/26/2017 at 21:12 with patient reporting increased fatigue. No chest pain, tachypalpitations, increased dyspnea, cough, orthopnea, PND, peripheral edema, dizziness, or near syncope. Continuous telemetry monitoring reveals reversion back to atrial fibrillation with a elevated ventricular response on 12/26/2017 at 21:12. The current ventricular response is ranging from 90-120 bpm. Allergies Coded Allergies: Levofloxacin (Verified Adverse Reaction, Mild, NAUSEA, 12/23/17) Propofol (Verified Adverse Reaction, Mild, NAUSEA, 12/23/17) Social History Smoking Status: Never Smoker Hx Tobacco Use In Past Year?: No Hx Alcohol Use - Type And Amou: No Hx Substance Use - Type And Am: No Problem List Medical Problems: (1) Acute bronchitis with bronchospasm Status: Acute (2) Anemia Status: Acute (3) Anticoagulated Status: Acute (4) Atrial flutter with rapid ventricular response Status: Acute (5) Dehydration Status: Acute (6) Frequent falls Status: Acute (7) Generalized weakness Status: Acute (8) Head trauma Status: Acute (9) Hyperthyroidism Status: Acute (10) Hypoxemia Status: Acute (11) Retroperitoneal hematoma Status: Acute (12) Tremor Status: Acute (13) UTI (urinary tract infection) Status: Acute Physical Exam Vital Signs Last Vital Signs Documentation Date Time Temp Pulse Resp B/P (MAP) Pulse Ox O2 Delivery O2 Flow Rate FiO2 12/27/17 08:23 36.6 95 18 139/65 (89) 93 12/27/17 08:00 Room Air Physical Exam Constitutional: Level of Distress: NAD, chronically ill Psychiatric: Mental Status: active & alert, anxious Orientation: to time, to place, to person Memory: recent memory normal, remote memory normal Head: normocephalic, atraumatic Eyes: Pupils: PERRLA Neck: pertinent finding (Normal JVP) Lungs: Respiratory effort: no dyspnea Auscultation: breath sounds normal, no wheezing, no rales/crackles, no rhonchi Cardiovascular: Heart Auscultation: no murmurs, no rubs, tachycardia, I/ KIARA, irregular rate rhythm Peripheral Pulses: Radial Pulse: normal on the left, normal on the right Dorsalis Pedis Pulse: decreased on the left, decreased on the right Abdomen: Bowel Sounds: normal Inspection & Palpation: soft, non-distended, no masses Extremities: no cyanosis, no edema, no clubbing Neurologic: Cranial Nerves: grossly intact Assessment and Plan Assessment and Plan Symptomatic paroxysmal atrial fibrillation with a rapid ventricular response occurring in the setting of hyperthyroidism. Chronic anticoagulation with Eliquis Status post permanent pacemaker (Medtronic) implantation Type II diabetes mellitus Status post DVT, pulmonary emboli and IVC filter RECOMMENDATIONS/PLAN: Increase atenolol dosing from 25 mg twice a day to 50 mg twice a day Continue sotalol 120 mg twice per day, diltiazem 240 mg per day, and Eliquis anticoagulation. Patient was seen and personally examined. Assessment as well outlined above patient. Once again lapsed into atrial fibrillation, however with better rate control on current combination of medications as above. She is on substantial multidrug regimen however QT interval is not significantly prolonged and pacemaker will prevent significant bradycardia Cole Holliday MD Laboratory Results Last 24 Hours Test 12/26/17 11:28 12/26/17 16:18 12/26/17 17:13 12/26/17 20:23 Bedside Glucose 201 mg/dl 345 mg/dl 317 mg/dl 233 mg/dl Test 12/27/17 05:28 12/27/17 07:22 Sodium Level 140 mmol/L Potassium Level 3.8 mmol/L Chloride Level 106 mmol/L Carbon Dioxide Level 31 mmol/L Anion Gap 3.0 mmol/L Blood Urea Nitrogen 24 mg/dl Creatinine 0.58 mg/dl Est Creatinine Clear Calc Drug Dose 72.4 ml/min Estimated GFR () 100.9 Estimated GFR (Non- 87.1 BUN/Creatinine Ratio 40.6 Random Glucose 174 mg/dl Calcium Level 8.6 mg/dl Phosphorus Level 2.5 mg/dl Magnesium Level 2.0 mg/dl Total Bilirubin 0.4 mg/dl Aspartate Amino Transf (AST/SGOT) 12 U/L Alanine Aminotransferase (ALT/SGPT) 21 U/L Alkaline Phosphatase 79 U/L Total Protein 5.4 gm/dl Albumin 2.2 gm/dl Globulin 3.2 gm/dl Albumin/Globulin Ratio 0.7 Bedside Glucose 160 mg/dl
--- NOTE | 2017-12-27 17:28 | Progress Note ---
Internal Med Progress Note Date of Service: December 27, 2017. Provider Documentation: SUBJECTIVE: Patient denies pain or shortness of breath. Continues to have tremors OBJECTIVE: General- no distress Neck - no thyromegaly or thyroid nodules appreciated Lungs - clear to auscultation; no respiratory distress Cardiovascular- regular; no murmur or gallop appreciated; no JVD; no pretibial edema Abdomen - positive bowel sounds, soft, nontender Extremities- no cyanosis; no calf tenderness Neuro - alert, oriented Skin - warm & dry ASSESSMENT & PLAN: HYPERTHYROIDISM Patient has a history of hypothyroidism, treated with thyroid replacement for many years. 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 Recent weakness, diarrhea, palpitations, weight loss, nail changes. Presented to ED in atrial fibrillation with rapid ventricular response. TSH undetectable. Free T4 5.6 ng/dl. Free T3 greater than 20 pg/ml. Underlying pathophysiology uncertain. Has not been on amiodarone. Thyroid ultrasound did not show any goiter or nodules; gland was noted to be hyperemic consistent with thyroiditis. was Started on methimazole - continue methimazole Case reviewed with Endocrinology; they will see her for outpatient follow-up. ESSENTIAL TREMOR Diagnosed years ago when patient was euthyroid on thyroid replacement. Management of hyperthyroidism ATRIAL FIBRILLATION WITH RAPID VENTRICULAR RESPONSE / Status post prior permanent pacemaker (Medtronic) implantation Symptomatic atrial fibrillation with a rapid ventricular response status post spontaneous conversion back to sinus on 12/25/2017, however has returned as afib RVR Cardiology has Increase atenolol dosing from 25 mg twice a day to 50 mg twice a day Continue sotalol 120 mg twice per day, diltiazem 240 mg per day, and Eliquis anticoagulation. Continue anticoagulation with apixaban. Management of Hyperthyroidism HYPERTENSION Continue diltiazem, propranolol, sotalol. DM TYPE 2 Usually managed with metformin, Lantus, Humalog at home. Hemoglobin A1c equal 8.7. Hold metformin during hospital stay. 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 Gout has been associated with hyperthyroidism. Gout flare pain improved and prednisone stopped VTE PROPHYLAXIS / HISTORY OF PULMONARY EMBOLISM Continue apixaban. DISPOSITION Anticipate need for skilled care or inpatient rehab. continue PT/OT evaluations Vital Signs: Date Time Temp Pulse Resp B/P (MAP) Pulse Ox O2 Delivery O2 Flow Rate FiO2 12/27/17 16:00 Room Air 12/27/17 15:17 37.0 96 18 130/79 (96) 94 Room Air 12/27/17 12:19 36.7 91 16 134/65 (88) 94 Room Air 12/27/17 12:00 Room Air 12/27/17 08:23 36.6 95 18 139/65 (89) 93 12/27/17 08:00 Room Air 12/27/17 04:00 94 Room Air 12/27/17 03:43 36.6 96 18 136/73 (94) 96 Room Air 12/26/17 23:59 Room Air 12/26/17 23:10 36.7 93 19 159/80 (106) 95 Room Air 12/26/17 20:00 Room Air 12/26/17 19:17 36.6 82 18 179/76 (110) 95 Room Air Lab Results: Results Past 24 Hours Test 12/26/17 20:23 12/27/17 05:28 12/27/17 07:22 12/27/17 11:07 Range/Units Bedside Glucose 233 160 181 70-90 mg/dl Sodium Level 140 136-145 mmol/L Potassium Level 3.8 3.5-5.1 mmol/L Chloride Level 106 98-107 mmol/L Carbon Dioxide Level 31 21-32 mmol/L Anion Gap 3.0 3-11 mmol/L Blood Urea Nitrogen 24 7-18 mg/dl Creatinine 0.58 0.60-1.20 mg/dl Est Creatinine Clear Calc Drug Dose 72.4 ml/min Estimated GFR () 100.9 Estimated GFR (Non- 87.1 BUN/Creatinine Ratio 40.6 10-20 Random Glucose 174 70-99 mg/dl Calcium Level 8.6 8.5-10.1 mg/dl Phosphorus Level 2.5 2.5-4.9 mg/dl Magnesium Level 2.0 1.8-2.4 mg/dl Total Bilirubin 0.4 0.2-1 mg/dl Aspartate Amino Transf (AST/SGOT) 12 15-37 U/L Alanine Aminotransferase (ALT/SGPT) 21 12-78 U/L Alkaline Phosphatase 79 45-117 U/L Total Protein 5.4 6.4-8.2 gm/dl Albumin 2.2 3.4-5.0 gm/dl Globulin 3.2 2.5-4.0 gm/dl Albumin/Globulin Ratio 0.7 0.9-2 Test 12/27/17 16:22 Range/Units Bedside Glucose 291 70-90 mg/dl
[2017-12-27] MEDS ORDERED: INSULIN GLARGINE SOLOSTAR 100 UNITS/ML 3 ML PEN SC ONE (21:38)
[2017-12-27] MEDS: ALPRAZOLAM 0.25 MG TAB PO PRN (23:26)
[2017-12-28 03:09] VITALS: BP 151/94; PULSE 98; TEMP 36.7; O2SAT 95
[2017-12-28] MEDS: DICLOFENAC SOD 1% GEL 100 GM TUBE EXT SCH (08:01)
[2017-12-28] MEDS: ATORVASTATIN 20 MG TAB PO SCH (08:02)
[2017-12-28] MEDS: ESCITALOPRAM OXALATE 10 MG TAB PO SCH (08:02)
[2017-12-28] MEDS: SOTALOL HCL 80 MG TAB PO SCH (08:03)
[2017-12-28] MEDS: SENNA 8.6 MG TAB PO SCH (08:06)
[2017-12-28] MEDS: APIXABAN 2.5 MG TAB PO SCH (08:06)
[2017-12-28] MEDS: METHIMAZOLE 5 MG TAB PO SCH (08:07)
[2017-12-28] MEDS: INSULIN ASPART 100 UNITS/ML 3 ML PEN SC SCH ×2 (08:09→11:56)
[2017-12-28 08:11] VITALS: BP 134/76; PULSE 94; TEMP 36.6; O2SAT 96
[2017-12-28] MEDS ORDERED: DILTIAZEM HCL 240 MG CAPCR PO SCH (09:00)
[2017-12-28] MEDS ORDERED: INSULIN GLARGINE SOLOSTAR 100 UNITS/ML 3 ML PEN SC SCH (09:00)
--- NOTE | 2017-12-28 09:49 | Cardiology Follow-Up ---
Subjective General Date of Service: December 28, 2017. Chief Complaint: Atrial fibrillation Pt evaluation today including: conversation w/ patient, physical exam, chart review, lab review, review of studies, review of inpatient medication list History of Present Illness Patient seen and examined. She describes feeling "a little fuzzy in the head today though not as bad as when I first got up." She remains in atrial fibrillation with continuous telemetry monitoring currently revealing atrial fibrillation around 100 bpm. Rare ventricular pacing observed. Stable fatigue. No chest pain, overt tachypalpitations, increased dyspnea, cough , orthopnea, PND, or worsening peripheral edema. Allergies Coded Allergies: Levofloxacin (Verified Adverse Reaction, Mild, NAUSEA, 12/23/17) Propofol (Verified Adverse Reaction, Mild, NAUSEA, 12/23/17) Social History Smoking Status: Never Smoker Hx Tobacco Use In Past Year?: No Hx Alcohol Use - Type And Amou: No Hx Substance Use - Type And Am: No Problem List Medical Problems: (1) Acute bronchitis with bronchospasm Status: Acute (2) Anemia Status: Acute (3) Anticoagulated Status: Acute (4) Atrial flutter with rapid ventricular response Status: Acute (5) Dehydration Status: Acute (6) Frequent falls Status: Acute (7) Generalized weakness Status: Acute (8) Head trauma Status: Acute (9) Hyperthyroidism Status: Acute (10) Hypoxemia Status: Acute (11) Retroperitoneal hematoma Status: Acute (12) Tremor Status: Acute (13) UTI (urinary tract infection) Status: Acute Physical Exam Vital Signs Last Vital Signs Documentation Date Time Temp Pulse Resp B/P (MAP) Pulse Ox O2 Delivery O2 Flow Rate FiO2 12/28/17 08:11 36.6 94 19 134/76 (95) 96 Room Air Physical Exam Constitutional: Level of Distress: NAD, chronically ill Psychiatric: Mental Status: active & alert, anxious Orientation: to time, to place, to person Memory: recent memory normal, remote memory normal Head: normocephalic, atraumatic Eyes: Pupils: PERRLA Neck: pertinent finding (Normal JVP) Lungs: Respiratory effort: no dyspnea Auscultation: breath sounds normal, no wheezing, no rales/crackles, no rhonchi Cardiovascular: Heart Auscultation: no murmurs, no rubs, tachycardia, I/ KIARA, irregular rate rhythm Peripheral Pulses: Radial Pulse: normal on the left, normal on the right Dorsalis Pedis Pulse: decreased on the left, decreased on the right Abdomen: Bowel Sounds: normal Inspection & Palpation: soft, non-distended, no masses Extremities: no cyanosis, no edema, no clubbing Neurologic: Cranial Nerves: grossly intact Assessment and Plan Assessment and Plan Symptomatic paroxysmal atrial fibrillation with a rapid ventricular response occurring in the setting of hyperthyroidism. Chronic anticoagulation with Eliquis Status post permanent pacemaker (Medtronic) implantation Type II diabetes mellitus Status post DVT, pulmonary emboli and IVC filter RECOMMENDATIONS/PLAN: Continue current therapies as prescribed Increase activity as tolerated. Local outpatient cardiology follow-up recommended Patient seen and examined, assessment and plan as outlined above Discussed management in detail with the patient including ongoing rate control with multiple drug regimen potential return to sinus rhythm once thyroid therapeutic. We will need ongoing cardiac care. Additional consideration for AV junction ablation of medical therapy unsuccessful could be considered Cole Holliday MD Laboratory Results Last 24 Hours Test 12/27/17 11:07 12/27/17 16:22 12/27/17 21:02 12/28/17 07:04 Bedside Glucose 181 mg/dl 291 mg/dl 321 mg/dl 137 mg/dl
[2017-12-28 12:06] VITALS: BP 122/74; PULSE 103; TEMP 36.4; O2SAT 95
[2017-12-28 12:16] VITALS: BP 122/74; PULSE 103; TEMP 36.4; O2SAT 95
--- NOTE | 2017-12-28 13:59 | Progress Note ---
Internal Med Progress Note Date of Service: December 28, 2017. Provider Documentation: SUBJECTIVE: Patient denies pain or shortness of breath. Continues to have tremors OBJECTIVE: General- no distress Neck - no thyromegaly or thyroid nodules appreciated Lungs - clear to auscultation; no respiratory distress Cardiovascular- irregular, no JVD, no pretibial edema Abdomen - positive bowel sounds, soft, nontender Extremities- no cyanosis; no calf tenderness Neuro - alert, oriented Skin - warm & dry ASSESSMENT & PLAN: Hospital Course and Discharge Instructions Admitted with atrial fibrillation with rapid ventricular response and found to be hyperthyroid. HYPERTHYROIDISM Patient has a history of hypothyroidism, treated with thyroid replacement for many years. 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 Recent weakness, diarrhea, palpitations, weight loss, nail changes. Presented to ED in atrial fibrillation with rapid ventricular response. TSH undetectable. Free T4 5.6 ng/dl. Free T3 greater than 20 pg/ml. Thyroid ultrasound did not show any goiter or nodules; gland was noted to be hyperemic consistent with thyroiditis. Case reviewed with Endocrinology was Started on methimazole and continue methimazole Patient will need follow up thyroid function tests 2 weeks after discharge and follow up with endocrinology clinic ESSENTIAL TREMOR Diagnosed years ago when patient was euthyroid on thyroid replacement. Management of hyperthyroidism ATRIAL FIBRILLATION WITH RAPID VENTRICULAR RESPONSE / Status post prior permanent pacemaker (Medtronic) implantation Symptomatic atrial fibrillation with a rapid ventricular response status post spontaneous conversion back to sinus on 12/25/2017, however has returned as afib RVR Atenolol dosing 50 mg twice a day, sotalol 120 mg twice per day, diltiazem 240 mg per day, and ELIQUIS (apixaban) anticoagulation. Management of Hyperthyroidism HYPERTENSION Continue diltiazem, propranolol, sotalol. DM TYPE 2 Usually managed with metformin, Lantus, Humalog at home. Hemoglobin A1c equal 8.7. 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 Gout has been associated with hyperthyroidism. Gout flare pain improved and prednisone has been stopped on this hospital stay VTE PROPHYLAXIS / HISTORY OF PULMONARY EMBOLISM Continue ELIQUIS (apixaban) Discharge to [facility] Follow up appointments Patient should be seen by primary care doctor associated with [facility] Patient will need follow up thyroid function tests 2 weeks after discharge, and for methimazole medications to be adjusted as needed as well as cardiac medications, and follow up with endocrinology clinic 01/03/2018 11:00 AM Cole Holliday MD Cardiology, [facility] 01/11/2018 1:00 PM EMILY Lombardo Neurology [facility] 01/12/2018 1:00 PM Tiara Calloway MD General Internal Medicine [facility] 01/23/2018 11:30 AM Kei Teixeira MD Endocrinology, [place] Vital Signs: Date Time Temp Pulse Resp B/P (MAP) Pulse Ox O2 Delivery O2 Flow Rate FiO2 12/28/17 12:16 36.4 103 18 95 Room Air 12/28/17 12:06 36.4 103 18 122/74 (90) 95 Room Air 12/28/17 12:05 Room Air 12/28/17 08:11 36.6 94 19 134/76 (95) 96 Room Air 12/28/17 08:00 Room Air 12/28/17 04:00 Room Air 12/28/17 03:09 36.7 98 20 151/94 (113) 95 Room Air 12/27/17 23:59 Room Air 12/27/17 23:40 36.4 97 18 138/70 (92) 94 12/27/17 20:00 Room Air 12/27/17 19:01 36.5 104 22 150/87 (108) 95 Room Air 12/27/17 16:00 Room Air 12/27/17 15:17 37.0 96 18 130/79 (96) 94 Room Air Lab Results: Results Past 24 Hours Test 12/27/17 16:22 12/27/17 21:02 12/28/17 07:04 12/28/17 11:48 Range/Units Bedside Glucose 291 321 137 102 70-90 mg/dl
[2017-12-28] MEDS ORDERED: DLTCD/240 PO (14:05)
[2017-12-28] MEDS ORDERED: SENN-61 PO (14:05)
[2017-12-28] MEDS ORDERED: TNR25 PO (14:05)
[2017-12-28] MEDS ORDERED: BTP80 PO (14:05)
[2017-12-28] MEDS ORDERED: TPZ5 PO (14:06)
--- NOTE | 2017-12-28 14:19 | Discharge Instructions ---
Discharge Instructions Date of Service December 28, 2017. Admission Reason for Admission: Hyperthyroidism, Rapid Atrial Fibrillation Discharge Discharge Diagnosis / Problem: atrial fibrillation with RVR, Hyperthyroidism, Essential Tremor, DM Discharge Goals Goal(s): Improve function Activity Recommendations Activity Limitations: as noted below Lifting Limitations: until after follow-up appointment Exercise/Sports Limitations: until after follow-up appointment Shower/Bathe: no limitations . Instructions / Follow-Up Instructions / Follow-Up Hospital Course and Discharge Instructions Admitted with atrial fibrillation with rapid ventricular response and found to be hyperthyroid. HYPERTHYROIDISM Patient has a history of hypothyroidism, treated with thyroid replacement for many years. 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 Recent weakness, diarrhea, palpitations, weight loss, nail changes. Presented to ED in atrial fibrillation with rapid ventricular response. TSH undetectable. Free T4 5.6 ng/dl. Free T3 greater than 20 pg/ml. Thyroid ultrasound did not show any goiter or nodules; gland was noted to be hyperemic consistent with thyroiditis. Case reviewed with Endocrinology was Started on methimazole and continue methimazole Patient will need follow up thyroid function tests 2 weeks after discharge and follow up with endocrinology clinic ESSENTIAL TREMOR Diagnosed years ago when patient was euthyroid on thyroid replacement. Management of hyperthyroidism ATRIAL FIBRILLATION WITH RAPID VENTRICULAR RESPONSE / Status post prior permanent pacemaker (Medtronic) implantation Symptomatic atrial fibrillation with a rapid ventricular response status post spontaneous conversion back to sinus on 12/25/2017, however has returned as afib RVR Atenolol dosing 50 mg twice a day, sotalol 120 mg twice per day, diltiazem 240 mg per day, and ELIQUIS (apixaban) anticoagulation. Management of Hyperthyroidism HYPERTENSION Continue diltiazem, propranolol, sotalol. DM TYPE 2 Usually managed with metformin, Lantus, Humalog at home. Hemoglobin A1c equal 8.7. 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 Gout has been associated with hyperthyroidism. Gout flare pain improved and prednisone has been stopped on this hospital stay VTE PROPHYLAXIS / HISTORY OF PULMONARY EMBOLISM Continue ELIQUIS (apixaban) Discharge to [facility] Follow up appointments Patient should be seen by primary care doctor associated with [facility] Patient will need follow up thyroid function tests 2 weeks after discharge, and for methimazole medications to be adjusted as needed as well as cardiac medications, and follow up with endocrinology clinic 01/03/2018 11:00 AM Cole Holliday MD Cardiology, [facility] 01/11/2018 1:00 PM EMILY Lombardo Neurology [facility] 01/12/2018 1:00 PM Tiara Calloway MD General Internal Medicine [facility] 01/23/2018 11:30 AM Kei Teixeira MD Endocrinology, [facility] Diet Patient's current hospital diet: AHA Diet (Heart Healthy), Diabetes Type 2 Diet Discharge Diet Recommended Diet: Regular Diet, Diabetes Type 2 Diet Pending Studies Studies pending at discharge: no Laboratory Results 12/26/17 05:49 Red Blood Count 3.44, Mean Corpuscular Volume 90.4, Mean Corpuscular Hemoglobin 30.5, Mean Corpuscular Hemoglobin Concent 33.8, Mean Platelet Volume 9.7, Neutrophils (%) (Auto) 63.7, Lymphocytes (%) (Auto) 20.0, Monocytes (%) (Auto) 16.1, Eosinophils (%) (Auto) 0.0, Basophils (%) (Auto) 0.0, Neutrophils # (Auto ) 2.92, Lymphocytes # (Auto) 0.92, Monocytes # (Auto) 0.74, Eosinophils # (Auto ) 0.00, Basophils # (Auto) 0.00 12/27/17 05:28 Test 12/23/17 20:10 12/23/17 20:15 12/23/17 21:30 12/24/17 06:44 Prothrombin Time 11.6 SECONDS (9.0-12.0) Prothromb Time International Ratio 1.1 (0.9-1.1) Activated Partial Thromboplast Time 26.5 SECONDS (21.0-31.0) Partial Thromboplastin Ratio 1.0 Direct Bilirubin 0.2 mg/dl (0-0.2) Bedside Troponin I < 0.030 ng/ml (0-0.045) Urine Color YELLOW Urine Appearance CLEAR (CLEAR) Urine pH 5.0 (4.5-7.5) Urine Specific [place] 1.020 (1.000-1.030) Urine Protein NEG (NEG) Urine Glucose (UA) NEG (NEG) Urine Ketones NEG (NEG) Urine Occult Blood 3+ (NEG) Urine Nitrite NEG (NEG) Urine Bilirubin NEG (NEG) Urine Urobilinogen NEG (NEG) Urine Leukocyte Esterase TRACE (NEG) Urine WBC (Auto) 1-5 /hpf (0-5) Urine RBC (Auto) >30 /hpf (0-4) Urine Hyaline Casts (Auto) 1-5 /lpf (0-5) Urine Epithelial Cells (Auto) 20-30 /lpf (0-5) Urine Bacteria (Auto) NEG (NEG) Thyroid Stimulating Hormone (TSH) < 0.005 uIu/ml (0.300-4.500) Test 12/25/17 05:30 12/26/17 05:49 12/27/17 05:28 12/28/17 11:48 Erythrocyte Sedimentation Rate 30 mm/hr (0-21) Estimated Average Glucose 203 mg/dl Hemoglobin A1c 8.7 % (4.5-5.6) Uric Acid 5.0 mg/dl (2.6-7.2) White Blood Count 4.59 K/uL (4.8-10.8) Red Blood Count 3.44 M/uL (4.2-5.4) Hemoglobin 10.5 g/dL (12.0-16.0) Hematocrit 31.1 % (37-47) Mean Corpuscular Volume 90.4 fL (80-100) Mean Corpuscular Hemoglobin 30.5 pg (25-34) Mean Corpuscular Hemoglobin Concent 33.8 g/dl (32-36) Platelet Count 151 K/uL (130-400) Mean Platelet Volume 9.7 fL (7.4-10.4) Neutrophils (%) (Auto) 63.7 % Lymphocytes (%) (Auto) 20.0 % Monocytes (%) (Auto) 16.1 % Eosinophils (%) (Auto) 0.0 % Basophils (%) (Auto) 0.0 % Neutrophils # (Auto) 2.92 K/uL (1.4-6.5) Lymphocytes # (Auto) 0.92 K/uL (1.2-3.4) Monocytes # (Auto) 0.74 K/uL (0.11-0.59) Eosinophils # (Auto) 0.00 K/uL (0-0.5) Basophils # (Auto) 0.00 K/uL (0-0.2) RDW Standard Deviation 41.4 fL (36.4-46.3) RDW Coefficient of Variation 12.5 % (11.5-14.5) Immature Granulocyte % (Auto) 0.2 % Immature Granulocyte # (Auto) 0.01 K/uL (0.00-0.02) Free Thyroxine 4.95 ng/dl (0.80-1.60) Free Triiodothyronine 15.35 pg/ml (2.30-4.20) Anion Gap 3.0 mmol/L (3-11) Est Creatinine Clear Calc Drug Dose 72.4 ml/min Estimated GFR () 100.9 Estimated GFR (Non- 87.1 BUN/Creatinine Ratio 40.6 (10-20) Calcium Level 8.6 mg/dl (8.5-10.1) Phosphorus Level 2.5 mg/dl (2.5-4.9) Magnesium Level 2.0 mg/dl (1.8-2.4) Total Bilirubin 0.4 mg/dl (0.2-1) Aspartate Amino Transf (AST/SGOT) 12 U/L (15-37) Alanine Aminotransferase (ALT/SGPT) 21 U/L (12-78) Alkaline Phosphatase 79 U/L (45-117) Total Protein 5.4 gm/dl (6.4-8.2) Albumin 2.2 gm/dl (3.4-5.0) Globulin 3.2 gm/dl (2.5-4.0) Albumin/Globulin Ratio 0.7 (0.9-2) Bedside Glucose 102 mg/dl (70-90) Date/Time Source Procedure Growth Status 12/26/17 00:00 Stool Shiga Toxin Test - Preliminary No E. Coli shiga toxin 1 or shiga tox... Resulted 12/26/17 00:00 Stool Stool Culture - Preliminary NO SALMONELLA ISOLATED TO DATE,... Resulted Hemoglobin A1c Test 12/25/17 05:30 Range/Units Estimated Average Glucose 203 mg/dl Hemoglobin A1c 8.7 H 4.5-5.6 % Medical Emergencies . Who to Call and When: Medical Emergencies: If at any time you feel your situation is an emergency, please call 911 immediately. . Non-Emergent Contact Non-Emergency issues call your: Primary Care Provider, Dec[employer]ator [employer]nequin, Specialist (Endocrinology) Call Non-Emergent contact if: you have any medication questions . . "Provider Documentation" section prepared by Kb Kwong. .
--- NOTE | 2017-12-28 15:19 | Discharge Summary ---
Discharge Summary Date of Service December 28, 2017. Discharge Summary Admission Date: Dec 23, 2017 at 23:38 Discharge Date: December 28, 2017 Principal Diagnosis: Hyperthyroidism, atrial fibrillation with RVR, Essential Tremor Secondary Diagnoses/Problems: DM TYPE 2 on insulin, inflammation of bilateral first MTP joints consistent with gout flare, Thromboembolism history (DVT/PE) Medication Reconciliation New Medications: Atenolol (Atenolol) 25 Mg Tab 50 MG PO BID for 30 Days, #120 TAB Diltiazem Hcl (Diltiazem Cd) 240 Mg Capcr 240 MG PO DAILY for 30 Days, #30 TAB Methimazole (Methimazole) 5 Mg Tab 15 MG PO BID for 30 Days, #180 TAB Senna (Senokot) 8.6 Mg Tab 8.6 MG PO BID for 30 Days, #60 TAB Sotalol HCl (Sotalol HCl) 80 Mg Tab 120 MG PO BID for 30 Days, #90 TAB Continued Medications: Acetaminophen (Tylenol) 500 Mg Tab 500 MG PO Q4 PRN for Pain Alprazolam (Xanax) 0.25 Mg Tab 0.25 MG PO BID PRN for Anxiety Apixaban (Eliquis) 5 Mg Tab 5 MG PO BID Atorvastatin (Lipitor) 40 Mg Tab 20 MG PO DAILY Escitalopram Oxalate (Escitalopram Oxalate) 10 Mg Tab 10 MG PO DAILY Insulin Glargine (Lantus Solostar) 100 Unit/Ml Inj 40 UNITS SC DAILY Insulin Lispro (Human) (Humalog Kwikpen) 100 Unit/Ml Inj 1 DOSE SC DIRECTED USE DIRECTED PER SLIDING SCALE Metformin Hcl Er (Glucophage Er) 500 Mg Tab 500 MG PO BID PT STATED SHE ONLY TOOK THIS MEDICATION FOR 2 DAYS AND STOPPED TAKING IT BECAUSE IT WAS MAKING HER SICK AND HAVING DIARRHEA Discontinued Medications: Diltiazem Hcl Coated Beads (Cartia Xt) 240 Mg Cap 240 MG PO DAILY Propranolol (Inderal) 20 Mg Tab 20 MG PO DAILY Sotalol Hcl (Sotalol Hcl) 240 Mg Tab 240 MG PO DAILY, #30 Admission Information HPI (per Admitting provider): CHIEF COMPLAINT: Feeling weakness. HISTORY OF PRESENT ILLNESS: This is an 82-year-old female with past medical history significant for atrial fibrillation, DVT, PE, status post IVC filter, hypertension, pulmonary nodules, history of hematoma of right thigh, presents with weakness going on for the last several days and also she is having diarrhea for the last 1-1/2 weeks 3-4 times a day and was having some feeling that she was in rapid AFib so she came to the ER. She was having a heart rate in 120s. She does also says she is losing her hair. She is shaky. Denies any dizziness, no blurred visions, no earache, no runny nose, no sore throat, no difficulty swallowing. No chest pain, no shortness of breath, no cough, no fever, no chills. Appetite is okay. No nausea, no abdominal pain. No blood in the stools. Normal bowel and bladder movements. No burning micturition, no blood in the urine, no swelling of the legs. Labs showed TSH is low and free T4 had been high. The patient says she was taking Synthroid until 4 years ago when it was stopped because her thyroid function was normal at that time and she used to follow with her director of elementary education at [place]. 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 Also she was in rehab for some time. Currently, she is living with her daughter. ALLERGIES: LEVAQUIN, PROPOFOL. PAST MEDICAL HISTORY: As mentioned above. PAST SURGICAL HISTORY: IR placement of IVC filter, knee arthroscopy, right side tonsillectomy. MEDICATIONS: The patient is on Tylenol 500 mg every 6 hours p.r.n., Xanax 0.5 mg p.o. at bedtime p.r.n., Eliquis 5 mg p.o. b.i.d., Lipitor 20 mg p.o. daily, Cardizem 240 mg p.o. daily, Lexapro 10 mg p.o. daily, insulin sliding scale and Humalog 5 units along with sliding scale before each meal, Lantus 40 units daily, metformin 1000 mg p.o. b.i.d. daily, propranolol 20 mg p.o. daily, sotalol 240 mg p.o. daily. FAMILY HISTORY: Significant for mother has COPD, CHF, CAD; brother colon cancer; another sister has lung cancer; mother has DVT. SOCIAL HISTORY: No smoking history. No alcohol history. No drug use. Currently living with her daughter. REVIEW OF SYMPTOMS: As per HPI. Rest of review of symptoms negative. Physical Exam (per Admitting): PHYSICAL EXAMINATION: GENERAL: The patient is old and frail, not in distress. VITAL SIGNS: Temperature 37, pulse 112, respiratory rate 20, blood pressure 135/64, oxygen 97% room air. HEENT: No pallor, no icterus. Pupils equal, round, and react to light. NECK: No JVD or neck masses. No carotid bruit. No palpable neck masses. CARDIOVASCULAR: S1, S2 heard. Tachycardia. No murmurs. RESPIRATORY SYSTEM: Clear to auscultation bilaterally. No wheezing, no crackles. ABDOMEN: Soft, bowel sounds present. Nontender. No distention. CENTRAL NERVOUS SYSTEM: Cranial nerves II-XII grossly intact. Nonfocal. EXTREMITIES: No edema, no erythema. LABS: WBC 4.9, hemoglobin 12.4, hematocrit 37.7, platelets 158. Sodium 136, potassium 4.3, chloride 103, bicarbonate 25, BUN 22, creatinine 0.6, serum glucose 156, calcium 9.5, magnesium 1.7, total bilirubin 0.5, direct bilirubin 0.2, AST 12, ALT 13, alkaline phosphatase 69, Point of care troponin 0.03. TSH 0.005, free T4 5.6. PT 11.6, INR 1.1. ABG 26.5. Urinalysis trace, leukocyte esterase positive. Hospital Course Hospital Course and Discharge Instructions Admitted with atrial fibrillation with rapid ventricular response and found to be hyperthyroid. HYPERTHYROIDISM Patient has a history of hypothyroidism, treated with thyroid replacement for many years. Thyroid replacement discontinued about 4-5 years ago by her director of elementary education in [place]. Recent weakness, diarrhea, palpitations, weight loss, nail changes. Presented to ED in atrial fibrillation with rapid ventricular response. TSH undetectable. Free T4 5.6 ng/dl. Free T3 greater than 20 pg/ml. Thyroid ultrasound did not show any goiter or nodules; gland was noted to be hyperemic consistent with thyroiditis. Case reviewed with Endocrinology was Started on methimazole and continue methimazole Patient will need follow up thyroid function tests 2 weeks after discharge and follow up with endocrinology clinic ESSENTIAL TREMOR Diagnosed years ago when patient was euthyroid on thyroid replacement. Management of hyperthyroidism ATRIAL FIBRILLATION WITH RAPID VENTRICULAR RESPONSE / Status post prior permanent pacemaker ([employer]) implantation Symptomatic atrial fibrillation with a rapid ventricular response status post spontaneous conversion back to sinus on 12/25/2017, however has returned as afib RVR Atenolol dosing 50 mg twice a day, sotalol 120 mg twice per day, diltiazem 240 mg per day, and ELIQUIS (apixaban) anticoagulation. Management of Hyperthyroidism HYPERTENSION Continue diltiazem, propranolol, sotalol. DM TYPE 2 Usually managed with metformin, Lantus, Humalog at home. Hemoglobin A1c equal 8.7. 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 Gout has been associated with hyperthyroidism. Gout flare pain improved and prednisone has been stopped on this hospital stay VTE PROPHYLAXIS / HISTORY OF PULMONARY EMBOLISM Continue ELIQUIS (apixaban) Discharge to [facility] Follow up appointments Patient should be seen by primary care doctor associated with [facility] Patient will need follow up thyroid function tests 2 weeks after discharge, and for methimazole medications to be adjusted as needed as well as cardiac medications, and follow up with endocrinology clinic 01/03/2018 11:00 AM Cole Holliday MD Cardiology, [facility] 01/11/2018 1:00 PM EMILY Lombardo Neurology [facility] 01/12/2018 1:00 PM Tiara Calloway MD General Internal Medicine [facility] 01/23/2018 11:30 AM Kei Teixeira MD Endocrinology, [place] Total time spent on discharge = 40 minutes This includes examination of the patient, discharge planning, medication reconciliation, and communication with other providers. Discharge Instructions see above
[2017-12-28 16:36] LABS: TSI 475 % baseline (<140)
== END 2017-12-28 15:52 | DRG 310 ==
LOC: C.EDB 19:09 → C.2T 23:38 → ENRESERV 23:49
PROVIDERS: ADMIT Hospitalist; ATTEND Hospitalist
DX: I48.1 Persistent atrial fibrillation (principal); E05.90 Thyrotoxicosis, unspecified without thyrotoxic crisis or storm; E11.9 Type 2 diabetes mellitus without complications; E78.5 Hyperlipidemia, unspecified; I10 Essential (primary) hypertension; E03.9 Hypothyroidism, unspecified; E86.0 Dehydration; K59.00 Constipation, unspecified; M81.0 Age-related osteoporosis without current pathological fracture; M10.9 Gout, unspecified; E83.42 Hypomagnesemia; R25.1 Tremor, unspecified; Z96.651 Presence of right artificial knee joint; Z86.718 Personal history of other venous thrombosis and embolism; Z95.0 Presence of cardiac pacemaker; Z88.1 Allergy status to other antibiotic agents; Z90.710 Acquired absence of both cervix and uterus; Z86.711 Personal history of pulmonary embolism; Z79.4 Long term (current) use of insulin; Z79.84 Long term (current) use of oral hypoglycemic drugs; Z80.0 Family history of malignant neoplasm of digestive organs; Z82.49 Family history of ischemic heart disease and other diseases of the circulatory system; Z80.1 Family history of malignant neoplasm of trachea, bronchus and lung

== ENCOUNTER → 2018-04-19 | Outpatient (CLI) | payer OTHER, MEDICARE ==
[~2018-04-19] MED LIST changes: -CEPH500C PO; -DILT240C48 PO; +DLTCD/240 PO; -PROP20TA67 PO; +SENN-61 PO; +TNR25 PO; +TPZ5 PO
== END | disposition home or self-care (01) ==
LOC: C.LABOAKS 13:24
PROVIDERS: ATTEND Nurse Practitioner
DX: R30.0 Dysuria (principal)

== ENCOUNTER 2018-09-02 20:55 | Inpatient (IN) ==
[2018-09-02] MEDS ORDERED: ONDANSETRON INJ 2 MG/ML 2 ML VIAL ONE (21:02)
[2018-09-02] MEDS ORDERED: SODIUM CHLORIDE 0.9% 500 ML IV SCH (21:30)
[2018-09-02 21:57] LABS: Basophils # (auto) 0.01 K/uL (0-0.2); Basophils % (auto) 0.1 %; Eosinophils # (auto) 0.04 K/uL (0-0.5); Eosinophils % (auto) 0.3 %; Hematocrit (blood only) 43.9 % (37-47); Hemoglobin 14.7 g/dL (12.0-16.0); Immature Granulocytes # (auto) 0.02 K/uL (0.00-0.02); Immature Granulocytes % (auto) 0.2 %; Lymphocytes # (auto) 1.15 K/uL (1.2-3.4); Lymphocytes % (auto) 9.7 %; Mean Corpuscular Hgb Conc 33.5 g/dL (32-36); Mean Corpuscular Volume 91.6 fL (80-100); Monocytes # (auto) 0.44 K/uL (0.11-0.59); Monocytes % (auto) 3.7 %; Neutrophils # (auto) 10.15 K/uL (1.4-6.5); Platelet Count 202 K/uL (130-400); RDW Coefficient of Variation 13.8 % (11.5-14.5); RDW Standard Deviation 46.9 fL (36.4-46.3); Red Blood Count 4.79 M/uL (4.2-5.4); White Blood Count 11.81 K/uL (4.8-10.8)
[2018-09-02 22:10] LABS: Appearance Urine Cloudy (Clear); Bacteria Urine Automated Negative (Negative); Bilirubin Urine Negative (Negative); Color Urine Yellow; Epithelial Cell Urine Auto 20-30 /lpf (0-5); Glucose Urine UA Negative (Negative); Ketones Urine Trace (Negative); Leukocyte Esterase Urine 2+ (Negative); Nitrite Urine Negative (Negative); Urobilinogen Urine Negative (Negative); WBC Urine Automated >30 /hpf (0-5); pH Urine 7.5 (4.5-7.5)
[2018-09-02 22:15] LABS: Protein Urine Negative (Negative)
[2018-09-02 22:23] LABS: Alanine Aminotransferase 61 U/L (12-78); Albumin Globulin Ratio 0.8 (0.9-2); Albumin Level 3.2 gm/dl (3.4-5.0); Alkaline Phosphatase 122 U/L (45-117); BUN Creatinine Ratio 21.9 (10-20); Bilirubin,Total 0.9 mg/dl (0.2-1); Blood Urea Nitrogen 19 mg/dl (7-18); Calcium 9.3 mg/dl (8.5-10.1); Carbon Dioxide 29 mmol/L (21-32); Chloride 102 mmol/L (98-107); Creatinine Clr Calc Pharmacy 46.9 ml/min; Est GFR (African American) 71.4; Est GFR (Non-African American) 61.6; Globulin 3.8 gm/dl (2.5-4.0); Glucose 187 mg/dl (70-99); NT Pro B Type Natriuretic Pept 915 pg/ml (0-1800); Phosphorus 3.4 mg/dl (2.5-4.9); Sodium 138 mmol/L (136-145); Troponin I < 0.015 ng/ml (0-0.045)
[2018-09-02 22:32] LABS: Influenza A virus by PCR Neg for Influ A (Neg); Influenza B virus by PCR Neg for Influ B (Neg)
--- NOTE | 2018-09-02 22:41 | XRay Report ---
SINGLE VIEW CHEST CLINICAL HISTORY: Atypical chest pain. FINDINGS: 2 AP, portable, upright chest radiographs are compared to study dated 09/11/2017 and correla camryn with chest CT dated 08/19/2017. The examination is degraded by portable technique and patient rot ation. The heart is enlarged and there is atherosclerotic calcification of the thoracic aorta. The p ulmonary vasculature is noncongested. Chronic interstitial thickening and mild nodularity are similar to previous. No airspace consolidation or large pleural effusion is identified. No pneumothorax is s een. The skeletal structures are osteopenic. Degenerative change and scoliosis are noted in the thora cic spine. The bony thorax is grossly intact. An IVC filter is noted in the upper abdomen. IMPRESSION: 1. Cardiomegaly and cardiac pacemaker. There is no radiographic evidence of congestive failure. 2. No airspace consolidation or large pleural effusion is identified. Electronically signed by: Adolph oMura M.D. 09/02/2018 10:39 PM
[2018-09-02 22:55] LABS: INR 1.1 (0.9-1.1)
[2018-09-02] MEDS ORDERED: IOVERSOL 100ml IV PRN (23:23)
[2018-09-03] MEDS ORDERED: SODIUM CHLORIDE 0.9% 1000ML 500 ML IV ONE (00:11)
[2018-09-03] MEDS ORDERED: SODIUM CHLORIDE 0.9% 1000ML 1,000 ML IV STA (00:11)
[2018-09-03] MEDS ORDERED: cefTRIAXone SODIUM 1,000 MG/50 ML BAG IV STA (00:12)
--- NOTE | 2018-09-03 01:01 | Emergency Department Note ---
Entered by Farooq Valdez acting as a scribe for History of Present Illness General Chief complaint: Nausea Time Seen by Provider: 09/02/18 21:21 Source: patient History of Present Illness Provider complaint: nausea Onset (ago): day(s) (today) Location: abdomen Pain Consistency: + other (sudden) Maximum Pain Intensity: 3 Quality: + other (nausea) Associated symptoms: + denies other symptoms (diarrhea), + nausea/vomiting and + other (abdominal pain) The patient is an 83 year old female with a history of hypertension, hypothyroidism, CHF, DVT, and atrial fibrillation who presents to the Emergency Room with complaints of worsening nausea that started today after lunch. The patient states that after lunch she become very nauseous and vomited about 7 to 8 times. She also reports that she has excruciating stomach pain in the middle of her abdomen. The patient states that this has not happened before, but does admit that there are several people in the assisted living facility she resides in that had similar symptoms. The patient denies experiencing any diarrhea. The patient reports that she was nauseous 5 to 6 days ago, but felt better shortly after the onset. The patient states that she is on the blood thinner eliquis. She also reports that she no longer felt nauseous after receiving the medication in the ambulance. The patient admits to having her appendix removed, but states she still has her gallbladder. Home Medications Home Medications Medication Instructions Recorded Confirmed Type alprazolam [Xanax] 0.25 mg PO BID PRN 09/02/18 09/02/18 History apixaban [Eliquis] 5 mg PO BID 09/02/18 09/02/18 History atenolol 50 mg PO DAILY 09/02/18 09/02/18 History clonazepam 0.125 mg PO BID 09/02/18 09/02/18 History diltiazem HCl 240 mg PO DAILY 09/02/18 09/02/18 History docusate sodium [Colace] 100 mg PO DAILY PRN 09/02/18 09/02/18 History escitalopram oxalate 0 mg PO DAILY 09/02/18 09/02/18 History insulin glargine [Lantus U-100 16 unit SUBCUT HS 09/02/18 09/02/18 History Insulin] loperamide 2 mg PO UD PRN 09/02/18 09/02/18 History metformin 500 mg PO BID 09/02/18 09/02/18 History methimazole 5 mg PO DAILY 09/02/18 09/02/18 History sotalol 120 mg PO Q12H 09/02/18 09/02/18 History Allergies Allergy/AdvReac Type Severity Reaction Status Date / Time levofloxacin AdvReac Mild NAUSEA Verified 09/02/18 22:17 propofol AdvReac Mild NAUSEA Verified 09/02/18 22:17 Past Med/Surg History Medical History Afib (Acute) Hypothyroidism (Acute) CHF (congestive heart failure) (Chronic) Hypertension (Chronic) DVT (deep venous thrombosis) (Resolved) Pulmonary embolism (Resolved) Social History Current Living Situation: Personal Care Facility Other Information That Helps Us Care for You: No Feels Safe at Home: Yes Safety Concerns: Feels Safe At This Time Smoking Status: Never smoker Hx Alcohol Use: No Hx Substance Use: No Beliefs That Will Affect Care: Mormon Mormon Beliefs: samaritan Preferred Language: Spanish Communication Ability: Effective Vp Software Engineering Required: No Review of Systems See HPI for pertinent positives & negatives. and A total of 10 systems reviewed and were otherwise negative Physical Exam Vital Signs Vital Signs - 24 hr 09/02/18 21:05 09/02/18 21:24 09/02/18 23:19 Temperature 36.8 C Temperature Source Oral Sepsis Recent Fever Within 48 Hours No Sepsis Action Taken by Nursing No Action Required Pulse Rate 65 64 Pulse Rate [Left] 80 Respiratory Rate 16 18 Respiratory Effort / Characteristics Non-Labored Spontaneous Non-Labored Respiratory Depth Normal Normal Blood Pressure 203/85 H Blood Pressure [Left Arm] 217/88 H Blood Pressure Mean 124 Blood Pressure Mean [Left Arm] 131 Blood Pressure Position [Left Arm] Pulse Oximetry 95 96 94 Oxygen Delivery Method Room Air Nasal Cannula Room Air Oxygen Flow Rate 1 09/03/18 00:20 09/03/18 02:36 09/03/18 03:32 Temperature Temperature Source Sepsis Recent Fever Within 48 Hours Sepsis Action Taken by Nursing Pulse Rate 71 Pulse Rate [Left] 97 H 68 Respiratory Rate 20 18 20 Respiratory Effort / Characteristics Non-Labored Non-Labored Respiratory Depth Normal Normal Blood Pressure 162/71 H Blood Pressure [Left Arm] 123/87 184/75 H Blood Pressure Mean Blood Pressure Mean [Left Arm] 99 111 Blood Pressure Position [Left Arm] Pulse Oximetry 94 95 94 Oxygen Delivery Method Room Air Room Air Oxygen Flow Rate 09/03/18 05:39 09/03/18 07:48 09/03/18 12:06 Temperature 37.2 C 37.1 C Temperature Source Oral Oral Sepsis Recent Fever Within 48 Hours Sepsis Action Taken by Nursing Pulse Rate Pulse Rate [Left] 66 69 Respiratory Rate 18 16 Respiratory Effort / Characteristics Respiratory Depth Blood Pressure Blood Pressure [Left Arm] 193/93 H 180/70 H 177/87 H Blood Pressure Mean Blood Pressure Mean [Left Arm] 126 106 117 Blood Pressure Position [Left Arm] Lying Pulse Oximetry 94 94 Oxygen Delivery Method Room Air Oxygen Flow Rate 09/03/18 14:55 Temperature 36.5 C Temperature Source Oral Sepsis Recent Fever Within 48 Hours Sepsis Action Taken by Nursing Pulse Rate Pulse Rate [Left] 60 Respiratory Rate 18 Respiratory Effort / Characteristics Respiratory Depth Blood Pressure Blood Pressure [Left Arm] 158/76 H Blood Pressure Mean Blood Pressure Mean [Left Arm] 103 Blood Pressure Position [Left Arm] Left Lateral Pulse Oximetry 91 Oxygen Delivery Method Room Air Oxygen Flow Rate GENERAL: Awake, alert, uncomfortable appearing, in no distress HENT: Normocephalic, atraumatic. Oropharynx with dry mucous membranes and otherwise unremarkable. . EYES: Normal conjunctiva. Sclera non-icteric. NECK: Supple. No nuchal rigidity. FROM. No JVD. RESPIRATORY: Clear to auscultation. Diminshed breath sounds at bases, but otherwise clear. CARDIAC: Regular rate, normal rhythm. Extremities warm and well perfused. Pulses equal. ABDOMEN: Soft, non-distended. Moderate generalized abdominal tenderness with guarding. No masses. RECTAL: Deferred. MUSCULOSKELETAL: Chest examination reveals no tenderness. The back is symmetrical on inspection without obvious abnormality. There is no CVA tenderness to palpation. No joint edema. LOWER EXTREMITIES: Calves are equal size bilaterally and non-tender. No edema. No discoloration. NEURO: Normal sensorium. No sensory or motor deficits noted. SKIN: No rash or jaundice noted. Course 2132: Past medical records reviewed. The patient was evaluated in room A12B, and a complete history and physical examination were performed. 0038: I reviewed the patient's case with Yenifer [facility] Hospitalist. He recommend talking with [facility] 0052: I reviewed the patient's case with Dr. Schaffer[facility]. She will evaluate the patient for further management. Consultations [facility]: [facility]38 Administered Medications Apixaban (Eliquis) 2.5 mg PO BID [place]NAEL Stop: 10/03/18 08:59 Last Admin: 09/03/18 08:48 Dose: 2.5 mg Atenolol (Tenormin) 50 mg PO DAILY [place] Stop: 10/03/18 08:59 Last Admin: 09/03/18 08:48 Dose: 50 mg Clonazepam (Klonopin) 0.125 mg PO BID N[place] Stop: 10/03/18 08:59 Last Admin: 09/03/18 08:54 Dose: 0.125 mg Diltiazem HCl (Cardizem Cd) 240 mg PO DAILY N[place]EL Stop: 10/03/18 08:59 Last Admin: 09/03/18 08:48 Dose: 240 mg Lactated Ringer's (Lr) 1,000 mls @ 125 mls/hr IV .Q8H N[place]EL Stop: 10/03/18 02:14 Last Admin: 09/03/18 14:14 Dose: 125 mls/hr Infusion: 09/03/18 10:33 Dose: 125 mls/hr Admin: 09/03/18 02:33 Dose: 125 mls/hr Insulin Aspart (Novolog Flexpen) 0 units SC Q6 [place] Stop: 10/03/18 05:59 Last Admin: 09/03/18 10:54 Dose: Not Given Admin: 09/03/18 06:49 Dose: 1 units Methimazole (Tapazole) 5 mg PO DAILY N[place]EL Stop: 10/03/18 08:59 Last Admin: 09/03/18 08:48 Dose: 5 mg Morphine Sulfate (Morphine Sulfate) 1 mg IV Q1H PRN PRN Reason: Pain Stop: 09/17/18 02:17 Last Admin: 09/03/18 15:49 Dose: 1 mg Admin: 09/03/18 11:54 Dose: 1 mg Sotalol HCl (Betapace) 120 mg PO Q12H N[place]EL Stop: 10/03/18 08:59 Last Admin: 09/03/18 08:47 Dose: 120 mg Discontinued Medications Escitalopram Oxalate (Lexapro) 2.5 mg PO ONE ONE Stop: 09/03/18 14:01 Last Admin: 09/03/18 14:14 Dose: 2.5 mg Sodium Chloride (Nss) 500 mls @ 999 mls/hr IV .Q31M [place]EL Stop: 09/02/18 22:00 Last Infusion: 09/02/18 22:43 Dose: 0 mls/hr Admin: 09/02/18 22:01 Dose: 999 mls/hr Ceftriaxone Sodium (Rocephin) 1,000 mg in 50 mls @ 100 mls/hr IV NOW STA Stop: 09/03/18 00:41 Last Infusion: 09/03/18 01:27 Dose: 0 mls/hr Admin: 09/03/18 00:50 Dose: 100 mls/hr Sodium Chloride (Nss 1000ml) 500 mls @ 999 mls/hr IV .Q31M ONE Stop: 09/03/18 00:41 Last Infusion: 09/03/18 01:27 Dose: 0 mls/hr Admin: 09/03/18 00:33 Dose: 999 mls/hr Sodium Chloride (Nss 1000ml) 1,000 mls @ 125 mls/hr IV .Q8H STA Stop: 09/03/18 08:10 Last Infusion: 09/03/18 02:34 Dose: Admin: 09/03/18 00:33 Dose: 125 mls/hr Magnesium Sulfate/Dextrose (Magnesium Sulfate / D5w) 1 gm in 100 mls @ 100 mls/ hr IV ONE ONE Stop: 09/03/18 03:04 Last Infusion: 09/03/18 03:23 Dose: 0 mls/hr Admin: 09/03/18 02:15 Dose: 100 mls/hr Insulin Glargine (Lantus Solostar Pen) 5 units SC 1000 N[place]NAEL Stop: 09/03/18 11:00 Last Admin: 09/03/18 10:53 Dose: 5 units Ioversol (Optiray 320 100ml) 93 ml IV ONCE PRN PRN Reason: Interaction Checking Stop: 09/06/18 23:22 Last Admin: 09/02/18 23:23 Dose: 1 ml Morphine Sulfate (Morphine Sulfate) 1 mg IV NOW STA Stop: 09/03/18 02:06 Last Admin: 09/03/18 02:14 Dose: 1 mg Ondansetron HCl (Zofran) Confirm Administered Dose 4 mg .ROUTE .STK-MED ONE Stop: 09/02/18 21:03 Last Admin: 09/03/18 16:33 Dose: Not Given Medical Decision Making Differential Diagnosis Differential diagnosis: Etiologies such as appendicitis, diverticulitis, PUD, biliary pathology, UTI, pancreatitis, obstruction, mesenteric ischemia, aortic pathology, infections, inflammatory bowel disease, renal colic, as well as others were entertained. Medical Records Attestation: I reviewed the patient's medical records. Home Medications Current Medication List: was personally reviewed by me Laboratory Data Attestation: I reviewed the patient's lab results. Result diagrams: 09/03/18 14:12 09/03/18 14:12 Lab Results 09/02/18 09/02/18 09/02/18 Range/Units 21:35 21:35 21:35 WBC 11.81 H (4.8-10.8) K/uL RBC 4.79 (4.2-5.4) M/uL Hgb 14.7 (12.0-16.0) g/dL Hct 43.9 (37-47) % MCV 91.6 (80-100) fL MCH 30.7 (25-34) pg MCHC 33.5 (32-36) g/dL RDW Std Deviation 46.9 H (36.4-46.3) fL RDW Coeff of Cruz 13.8 (11.5-14.5) % Plt Count 202 (130-400) K/uL MPV 10.0 (7.4-10.4) fL Immature Gran % (Auto) 0.2 % Neut % (Auto) 86.0 % Lymph % (Auto) 9.7 % [place] % (Auto) 3.7 % Eos % (Auto) 0.3 % Baso % (Auto) 0.1 % Immature Gran # (Auto) 0.02 (0.00-0.02) K/uL Neut # (Auto) 10.15 H (1.4-6.5) K/uL Lymph # (Auto) 1.15 L (1.2-3.4) K/uL [place] # (Auto) 0.44 (0.11-0.59) K/uL Eos # (Auto) 0.04 (0-0.5) K/uL Baso # (Auto) 0.01 (0-0.2) K/uL PT Cancelled INR Cancelled Sodium 138 (136-145) mmol/L Potassium (3.5-5.1) mmol/L Chloride 102 (98-107) mmol/L Carbon Dioxide 29 (21-32) mmol/L Anion Gap 7.0 (3-11) BUN 19 H (7-18) mg/dl Creatinine 0.88 (0.6-1.2) mg/dl Est Cr Clr Drug Dosing 46.9 ml/min Est GFR ( Amer) 71.4 Est GFR (Non-Af Amer) 61.6 BUN/Creatinine Ratio 21.9 H (10-20) Glucose 187 H (70-99) mg/dl POC Glucose (70-99) Calcium 9.3 (8.5-10.1) mg/dl Phosphorus 3.4 (2.5-4.9) mg/dl Magnesium (1.8-2.4) mg/dl Total Bilirubin 0.9 (0.2-1) mg/dl AST (15-37) U/L ALT 61 (12-78) U/L Alkaline Phosphatase 122 H (45-117) U/L Lactate Dehydrogenase (84-246) U/L Troponin I < 0.015 (0-0.045) ng/ml NT-Pro-B Natriuret Pep 915 (0-1800) pg/ml Total Protein 7.0 (6.4-8.2) gm/dl Albumin 3.2 L (3.4-5.0) gm/dl Globulin 3.8 (2.5-4.0) gm/dl Albumin/Globulin Ratio 0.8 L (0.9-2) Triglycerides (0-150) mg/dl Lipase 67121 H (73-393) U/L Urine Color Urine Appearance (Clear) Urine pH (4.5-7.5) Ur Specific [place] (1.000-1.030) Urine Protein (Negative) Urine Glucose (UA) (Negative) Urine Ketones (Negative) Urine Blood (Negative) Urine Nitrite (Negative) Urine Bilirubin (Negative) Urine Urobilinogen (Negative) Ur Leukocyte Esterase (Negative) Urine WBC (Auto) (0-5) /hpf Urine RBC (Auto) (0-4) /hpf U Hyaline Cast (Auto) (0-5) /lpf U Epithel Cells (Auto) (0-5) /lpf Urine Bacteria (Auto) (Negative) Influenza Type A (PCR) (Neg) Influenza Type B (PCR) (Neg) 09/02/18 09/02/18 09/02/18 Range/Units 21:40 21:45 22:31 WBC (4.8-10.8) K/uL RBC (4.2-5.4) M/uL Hgb (12.0-16.0) g/dL Hct (37-47) % MCV (80-100) fL MCH (25-34) pg MCHC (32-36) g/dL RDW Std Deviation (36.4-46.3) fL RDW Coeff of Cruz (11.5-14.5) % Plt Count (130-400) K/uL MPV (7.4-10.4) fL Immature Gran % (Auto) % Neut % (Auto) % Lymph % (Auto) % [place] % (Auto) % Eos % (Auto) % Baso % (Auto) % Immature Gran # (Auto) (0.00-0.02) K/uL Neut # (Auto) (1.4-6.5) K/uL Lymph # (Auto) (1.2-3.4) K/uL [place] # (Auto) (0.11-0.59) K/uL Eos # (Auto) (0-0.5) K/uL Baso # (Auto) (0-0.2) K/uL PT 11.0 INR 1.1 Sodium (136-145) mmol/L Potassium (3.5-5.1) mmol/L Chloride (98-107) mmol/L Carbon Dioxide (21-32) mmol/L Anion Gap (3-11) BUN (7-18) mg/dl Creatinine (0.6-1.2) mg/dl Est Cr Clr Drug Dosing ml/min Est GFR ( Amer) Est GFR (Non-Af Amer) BUN/Creatinine Ratio (10-20) Glucose (70-99) mg/dl POC Glucose (70-99) Calcium (8.5-10.1) mg/dl Phosphorus (2.5-4.9) mg/dl Magnesium (1.8-2.4) mg/dl Total Bilirubin (0.2-1) mg/dl AST (15-37) U/L ALT (12-78) U/L Alkaline Phosphatase (45-117) U/L Lactate Dehydrogenase (84-246) U/L Troponin I (0-0.045) ng/ml NT-Pro-B Natriuret Pep (0-1800) pg/ml Total Protein (6.4-8.2) gm/dl Albumin (3.4-5.0) gm/dl Globulin (2.5-4.0) gm/dl Albumin/Globulin Ratio (0.9-2) Triglycerides (0-150) mg/dl Lipase (73-393) U/L Urine Color Yellow Urine Appearance Cloudy H (Clear) Urine pH 7.5 (4.5-7.5) Ur Specific [place] 1.020 (1.000-1.030) Urine Protein Negative (Negative) Urine Glucose (UA) Negative (Negative) Urine Ketones Trace H (Negative) Urine Blood 3+ H (Negative) Urine Nitrite Negative (Negative) Urine Bilirubin Negative (Negative) Urine Urobilinogen Negative (Negative) Ur Leukocyte Esterase 2+ H (Negative) Urine WBC (Auto) >30 H (0-5) /hpf Urine RBC (Auto) >30 H (0-4) /hpf U Hyaline Cast (Auto) 1-5 (0-5) /lpf U Epithel Cells (Auto) 20-30 H (0-5) /lpf Urine Bacteria (Auto) Negative (Negative) Influenza Type A (PCR) Neg for Influ A (Neg) Influenza Type B (PCR) Neg for Influ B (Neg) 09/03/18 09/03/18 09/03/18 Range/Units 00:25 00:25 06:43 WBC (4.8-10.8) K/uL RBC (4.2-5.4) M/uL Hgb (12.0-16.0) g/dL Hct (37-47) % MCV (80-100) fL MCH (25-34) pg MCHC (32-36) g/dL RDW Std Deviation (36.4-46.3) fL RDW Coeff of Cruz (11.5-14.5) % Plt Count (130-400) K/uL MPV (7.4-10.4) fL Immature Gran % (Auto) % Neut % (Auto) % Lymph % (Auto) % [place] % (Auto) % Eos % (Auto) % Baso % (Auto) % Immature Gran # (Auto) (0.00-0.02) K/uL Neut # (Auto) (1.4-6.5) K/uL Lymph # (Auto) (1.2-3.4) K/uL [place] # (Auto) (0.11-0.59) K/uL Eos # (Auto) (0-0.5) K/uL Baso # (Auto) (0-0.2) K/uL PT INR Sodium (136-145) mmol/L Potassium 4.1 (3.5-5.1) mmol/L Chloride (98-107) mmol/L Carbon Dioxide (21-32) mmol/L Anion Gap (3-11) BUN (7-18) mg/dl Creatinine (0.6-1.2) mg/dl Est Cr Clr Drug Dosing ml/min Est GFR ( Amer) Est GFR (Non-Af Amer) BUN/Creatinine Ratio (10-20) Glucose (70-99) mg/dl POC Glucose 178 H (70-99) Calcium (8.5-10.1) mg/dl Phosphorus (2.5-4.9) mg/dl Magnesium 1.4 L (1.8-2.4) mg/dl Total Bilirubin (0.2-1) mg/dl AST 61 H (15-37) U/L ALT (12-78) U/L Alkaline Phosphatase (45-117) U/L Lactate Dehydrogenase 205 (84-246) U/L Troponin I (0-0.045) ng/ml NT-Pro-B Natriuret Pep (0-1800) pg/ml Total Protein (6.4-8.2) gm/dl Albumin (3.4-5.0) gm/dl Globulin (2.5-4.0) gm/dl Albumin/Globulin Ratio (0.9-2) Triglycerides (0-150) mg/dl Lipase (73-393) U/L Urine Color Urine Appearance (Clear) Urine pH (4.5-7.5) Ur Specific [place] (1.000-1.030) Urine Protein (Negative) Urine Glucose (UA) (Negative) Urine Ketones (Negative) Urine Blood (Negative) Urine Nitrite (Negative) Urine Bilirubin (Negative) Urine Urobilinogen (Negative) Ur Leukocyte Esterase (Negative) Urine WBC (Auto) (0-5) /hpf Urine RBC (Auto) (0-4) /hpf U Hyaline Cast (Auto) (0-5) /lpf U Epithel Cells (Auto) (0-5) /lpf Urine Bacteria (Auto) (Negative) Influenza Type A (PCR) (Neg) Influenza Type B (PCR) (Neg) 09/03/18 09/03/18 09/03/18 Range/Units 10:52 14:12 14:12 WBC 8.16 (4.8-10.8) K/uL RBC 4.28 (4.2-5.4) M/uL Hgb 12.5 (12.0-16.0) g/dL Hct 39.3 (37-47) % MCV 91.8 (80-100) fL MCH 29.2 (25-34) pg MCHC 31.8 L (32-36) g/dL RDW Std Deviation 47.9 H (36.4-46.3) fL RDW Coeff of Cruz 14.2 (11.5-14.5) % Plt Count 179 (130-400) K/uL MPV 9.5 (7.4-10.4) fL Immature Gran % (Auto) 0.2 % Neut % (Auto) 72.4 % Lymph % (Auto) 15.7 % [place] % (Auto) 10.7 % Eos % (Auto) 0.9 % Baso % (Auto) 0.1 % Immature Gran # (Auto) 0.02 (0.00-0.02) K/uL Neut # (Auto) 5.91 (1.4-6.5) K/uL Lymph # (Auto) 1.28 (1.2-3.4) K/uL [place] # (Auto) 0.87 H (0.11-0.59) K/uL Eos # (Auto) 0.07 (0-0.5) K/uL Baso # (Auto) 0.01 (0-0.2) K/uL PT INR Sodium 142 (136-145) mmol/L Potassium 3.8 (3.5-5.1) mmol/L Chloride 108 H (98-107) mmol/L Carbon Dioxide 30 (21-32) mmol/L Anion Gap 4.0 (3-11) BUN 18 (7-18) mg/dl Creatinine 0.66 (0.6-1.2) mg/dl Est Cr Clr Drug Dosing 59.7 ml/min Est GFR ( Amer) 96.0 Est GFR (Non-Af Amer) 82.8 BUN/Creatinine Ratio 27.4 H (10-20) Glucose 128 H (70-99) mg/dl POC Glucose 131 H (70-99) Calcium 8.5 (8.5-10.1) mg/dl Phosphorus (2.5-4.9) mg/dl Magnesium 1.8 (1.8-2.4) mg/dl Total Bilirubin (0.2-1) mg/dl AST (15-37) U/L ALT (12-78) U/L Alkaline Phosphatase (45-117) U/L Lactate Dehydrogenase (84-246) U/L Troponin I (0-0.045) ng/ml NT-Pro-B Natriuret Pep (0-1800) pg/ml Total Protein (6.4-8.2) gm/dl Albumin (3.4-5.0) gm/dl Globulin (2.5-4.0) gm/dl Albumin/Globulin Ratio (0.9-2) Triglycerides (0-150) mg/dl Lipase (73-393) U/L Urine Color Urine Appearance (Clear) Urine pH (4.5-7.5) Ur Specific [place] (1.000-1.030) Urine Protein (Negative) Urine Glucose (UA) (Negative) Urine Ketones (Negative) Urine Blood (Negative) Urine Nitrite (Negative) Urine Bilirubin (Negative) Urine Urobilinogen (Negative) Ur Leukocyte Esterase (Negative) Urine WBC (Auto) (0-5) /hpf Urine RBC (Auto) (0-4) /hpf U Hyaline Cast (Auto) (0-5) /lpf U Epithel Cells (Auto) (0-5) /lpf Urine Bacteria (Auto) (Negative) Influenza Type A (PCR) (Neg) Influenza Type B (PCR) (Neg) 09/03/18 Range/Units 14:12 WBC (4.8-10.8) K/uL RBC (4.2-5.4) M/uL Hgb (12.0-16.0) g/dL Hct (37-47) % MCV (80-100) fL MCH (25-34) pg MCHC (32-36) g/dL RDW Std Deviation (36.4-46.3) fL RDW Coeff of Cruz (11.5-14.5) % Plt Count (130-400) K/uL MPV (7.4-10.4) fL Immature Gran % (Auto) % Neut % (Auto) % Lymph % (Auto) % [place] % (Auto) % Eos % (Auto) % Baso % (Auto) % Immature Gran # (Auto) (0.00-0.02) K/uL Neut # (Auto) (1.4-6.5) K/uL Lymph # (Auto) (1.2-3.4) K/uL [place] # (Auto) (0.11-0.59) K/uL Eos # (Auto) (0-0.5) K/uL Baso # (Auto) (0-0.2) K/uL PT INR Sodium (136-145) mmol/L Potassium (3.5-5.1) mmol/L Chloride (98-107) mmol/L Carbon Dioxide (21-32) mmol/L Anion Gap (3-11) BUN (7-18) mg/dl Creatinine (0.6-1.2) mg/dl Est Cr Clr Drug Dosing ml/min Est GFR ( Amer) Est GFR (Non-Af Amer) BUN/Creatinine Ratio (10-20) Glucose (70-99) mg/dl POC Glucose (70-99) Calcium (8.5-10.1) mg/dl Phosphorus (2.5-4.9) mg/dl Magnesium (1.8-2.4) mg/dl Total Bilirubin (0.2-1) mg/dl AST (15-37) U/L ALT (12-78) U/L Alkaline Phosphatase (45-117) U/L Lactate Dehydrogenase (84-246) U/L Troponin I (0-0.045) ng/ml NT-Pro-B Natriuret Pep (0-1800) pg/ml Total Protein (6.4-8.2) gm/dl Albumin (3.4-5.0) gm/dl Globulin (2.5-4.0) gm/dl Albumin/Globulin Ratio (0.9-2) Triglycerides 159 H (0-150) mg/dl Lipase (73-393) U/L Urine Color Urine Appearance (Clear) Urine pH (4.5-7.5) Ur Specific [place] (1.000-1.030) Urine Protein (Negative) Urine Glucose (UA) (Negative) Urine Ketones (Negative) Urine Blood (Negative) Urine Nitrite (Negative) Urine Bilirubin (Negative) Urine Urobilinogen (Negative) Ur Leukocyte Esterase (Negative) Urine WBC (Auto) (0-5) /hpf Urine RBC (Auto) (0-4) /hpf U Hyaline Cast (Auto) (0-5) /lpf U Epithel Cells (Auto) (0-5) /lpf Urine Bacteria (Auto) (Negative) Influenza Type A (PCR) (Neg) Influenza Type B (PCR) (Neg) Imaging Data Attestation: I personally reviewed and interpreted this imaging study as follows : Radiologist's Impression: Radiology results as stated below per my review and the radiologist's interpretation: SINGLE VIEW CHEST CLINICAL HISTORY: Atypical chest pain. FINDINGS: 2 AP, portable, upright chest radiographs are compared to study dated 09/11/2017 and correlated with chest CT dated 08/19/2017. The examination is degraded by portable technique and patient rotation. The heart is enlarged and there is atherosclerotic calcification of the thoracic aorta. The pulmonary vasculature is noncongested. Chronic interstitial thickening and mild nodularity are similar to previous. No airspace consolidation or large pleural effusion is identified. No pneumothorax is seen. The skeletal structures are osteopenic. Degenerative change and scoliosis are noted in the thoracic spine. The bony thorax is grossly intact. An IVC filter is noted in the upper abdomen. IMPRESSION: 1. Cardiomegaly and cardiac pacemaker. There is no radiographic evidence of congestive failure. 2. No airspace consolidation or large pleural effusion is identified. Electronically signed by: Adolph Moura M.D. 09/02/2018 10:39 PM --------- [facility] Preliminary Findings Only � See Final Report For Complete Findings CT ABDOMEN & PELVIS With Contrast: Severe pancreatitis without fluid collection. No CBD or gallbladder stones. Nondilated CBD. Enhancing area at the gallbladder fundus measures 1.3 cm. Follow -up advised. Bilateral nonobstructing renal stones. No bowel obstruction. Radiologist: Ulices Lee MD Study ready at 23:28 and initial results transmitted at 23:49 ECG Data Attestation: I personally reviewed and interpreted this ECG as follows: Indication: nausea Rate (beats per minute): 64 Rhythm: normal sinus Findings: + other (normal axis); no acute ischemic change Blood Pressure Blood Pressure Findings: Elevated blood pressure Blood Pressure Disposition: Referred to patients primary care provider MDM Narrative The patient is a pleasant 83-year-old woman with a past medical history of A. fib on Eliquis, DVT/PE status post IVC filter, hypertension, IDDM 2 presents emergency department with acute onset abdominal pain with nausea and vomiting after eating per hpi. On arrival the patient is uncomfortable but no acute distress, afebrile stable vital signs. The patient appears clinically dry. On exam the patient has moderate generalized abdominal tenderness with guarding. EKG without evidence of acute ischemia. Chest x-ray negative for acute process. Lipase 26,000. Otherwise, WBC 11.8. H/H within normal limits. Chemistry without acidosis. Glucose 180s. BUN/creatinine> 20 consistent with the patient's clinically dry appearance. UA with possible infection with LE 2+ , WBC> 30 albeit with epithelial cells no bacteria. CT of the abdomen pelvis per preliminary stat rad read demonstrates severe pancreatitis without fluid collection. No CBD or gallbladder stones. CBD is nondilated. Blood cultures ordered as well as ceftriaxone for possible UTI. LDH ordered and AST redraw pending. Patient reevaluated after IV fluids and Zofran given by EMS and feeling improved. Case was discussed with Dr. Schaffer, [facility] hospitalist, who will evaluate the patient for admission. Impression & Plan Acute pancreatitis Discharge Plan Visit Data *Final* Discharge Date/Time: 09/03/18 03:32 Chief Complaint: Nausea ED Provider: Abilio Jensen Discharge Problem: Acute pancreatitis Patient Disposition: Admitted As Inpatient Discharge Instructions Interventions: ED Discharge Assessment Last Done: 09/03/18 03:32 The scribe's documentation has been prepared under my direction and personally reviewed by me in its entirety. I confirm that the note above accurately reflects all work, treatment, procedures, and medical decision making performed by me.
[2018-09-03 01:02] LABS: Potassium 4.1 mmol/L (3.5-5.1)
[2018-09-03 01:25] LABS: Magnesium 1.4 mg/dl (1.8-2.4)
[2018-09-03] MEDS ORDERED: MAGNESIUM SULFATE / D5W 1 GM/100 ML BAG IV ONE (02:05)
[2018-09-03] MEDS ORDERED: MoRPHine SULFATE 2 MG/ML CARP IV STA (02:05)
--- NOTE | 2018-09-03 02:28 | History & Physical Report ---
Date of Service September 03, 2018 Assessment & Plan (1) Acute pancreatitis: 83-year-old female was admitted on 03 September 2018 for acute abdominal pain and pancreatitis. Acute pancreatitis: Acute onset afternoon of admission of nausea/vomiting and abdominal pain. Lipase > 26K. Afebrile, not tachycardic, WBC 12. Adelina�s ONE. No clear evidence of infection so to continue empiric antibiotics specifically for pancreatitis. Goal glucose under 150. Goal Mg over 2. Goal calcium in normal range. - In ED, treated with normal saline bolus plus maintenance IVF as well as Rocephin. Sent blood cultures. - Ideally, would run LR at 3 mL/kg/hr. However, given age and history of CHF, will start at 125 mL an hour. - Will give some supplemental magnesium and recheck in afternoon. - Ordered RUQ u/s. - Morphine prn for pain. Patient was quite nervous about being sedated with narcotics, so we agreed to start at very low 1 mg dosing. Zofran prn for nausea. Hematuria: Patient denies any urinary symptoms. ED UA positive for WBCs, RBCs, but multiple epithelial cells. Urine culture sent. Will not start any empiric antibiotic treatment. Hypertension: PMH same. Admit BP 217/88, however it quickly resolved to 123/87 after IV fluids. See afib meds below. Ongoing medical issues: - A. fib: S/p ablation. At home is on atenolol, sotalol, diltiazem, and Eliquis. Continue here. - Hyperthyroidism: Unclear if this is hypo- or hyperthyroidism. At home patient is on methimazole. Continue here. - Diastolic CHF: Echo in July 2017 noted EF of 60-65%, grade 1 diastolic dysfunction, mild and AR. - History of BLE DVT and PE: Jul 2017, s/p IVC filter placement. At home is on Eliquis. Continue here. - Diabetes type 2: At home is on Lantus and metformin. Ordered glycemic consult since NPO. - Anxiety/depression: At home is on clonazepam and xanax as needed. Continue here. - Hyperlipidemia: Has previously been on atorvastatin. - Essential tremor: Previously was on propranolol. - CKD stage 3: Per old medical records, though admit Cr 0.88. - Anemia: Per old medical records, though admit Hb 14.7. Some of that may be hemoconcentration. - Pulmonary nodules. Code status: Full code. Diet: N.p.o initially but can take PO meds. DVT prophy: Continue home Eliquis. PT/OT: Deferred. Disbo: Admit to MedSurg. (2) Hematuria: (3) Hypertension: (4) Atrial fibrillation: (5) Hyperthyroidism: (6) Diastolic congestive heart failure: (7) History of DVT (deep vein thrombosis): (8) History of pulmonary embolus (PE): (9) Diabetes mellitus, type 2: (10) Anxiety: (11) Depression: (12) Dyslipidemia: (13) Essential tremor: History of Present Illness Primary Care Provider: [place] 83-year-old female says that around lunchtime on day prior to admission () she developed very acute onset of quite painful mid abdominal pain along with multiple episodes of vomiting. She does not recall eating anything out of the normal and says that her morning was unremarkable. She says she went for a one mile walk the day prior without any symptoms or difficulty. She denies any current diarrhea, chest pain, shortness of breath, or other focal symptoms. Denies any previous history of the same. Says she drinks wine perhaps 2-3 times per year, most recently a glass on [employer]. Past medical history includes hypertension, hyperlipidemia, A. fib, thyroid disease, diastolic CHF, bilateral DVTs and PE, diabetes type 2, anemia, anxiety , depression, CKD stage III, pulmonary nodules, essential tremor. Surgical history includes IVC filter placement, atrial fibrillation ablation, history of tonsillectomy, right knee replacement, hysterectomy. Social history includes never smoked, very rare wine consumption, and says she lives at the [place]. Her daughter lives in [place]. Allergies Allergy/AdvReac Type Severity Reaction Status Date / Time levofloxacin AdvReac Mild NAUSEA Verified 09/02/18 22:17 propofol AdvReac Mild NAUSEA Verified 09/02/18 22:17 Home Medications Home Medications Medication Instructions Recorded Confirmed Type alprazolam [Xanax] 0.25 mg PO BID PRN 09/02/18 09/02/18 History apixaban [Eliquis] 5 mg PO BID 09/02/18 09/02/18 History atenolol 50 mg PO DAILY 09/02/18 09/02/18 History clonazepam 0.125 mg PO BID 09/02/18 09/02/18 History diltiazem HCl 240 mg PO DAILY 09/02/18 09/02/18 History docusate sodium [Colace] 100 mg PO DAILY PRN 09/02/18 09/02/18 History escitalopram oxalate 0 mg PO DAILY 09/02/18 09/02/18 History insulin glargine [Lantus U-100 16 unit SUBCUT HS 09/02/18 09/02/18 History Insulin] loperamide 2 mg PO UD PRN 09/02/18 09/02/18 History metformin 500 mg PO BID 09/02/18 09/02/18 History methimazole 5 mg PO DAILY 09/02/18 09/02/18 History sotalol 120 mg PO Q12H 09/02/18 09/02/18 History Past Med/Surg History Medical History Afib (Acute) Hypothyroidism (Acute) CHF (congestive heart failure) (Chronic) Hypertension (Chronic) DVT (deep venous thrombosis) (Resolved) Pulmonary embolism (Resolved) Social History Feels Safe at Home: Yes Smoking Status: Former smoker Review of Systems Constitutional: Denies fevers, chills, focal weakness Eyes: Denies any visual loss or diplopia ENT: Denies any ear/nose/throat pain or difficulty speaking or swallowing Respiratory: Denies any dyspnea, cough, hemoptysis Cardiovascular: Denies any chest pain or feeling of edema Gastrointestinal: See HPI. Musculoskeletal: Denies any acute extremity pains, myalgias, or focal weakness Skin: Denies any known acute rashes or lesions Neuro: Denies any headache, acute focal weakness or numbness, or difficulties with speech or swallow. Psych: Denies any recent acute depression or anxiety Physical Exam 2 Vital Signs (Past 24 Hours): Last Vital Signs Temp 36.8 C 09/02/18 21:05 Pulse 97 H 09/03/18 00:20 Resp 20 09/03/18 00:20 BP 123/87 09/03/18 00:20 Pulse Ox 94 09/03/18 00:20 Physical Exam: GENERAL: Awake, alert, well-appearing, pleasantly conversing, in no acute distress HENT: Normocephalic, atraumatic. Oropharynx with dry mucous membranes. EYES: Normal conjunctiva. Sclera non-icteric. NECK: Inspection normal. Supple and full ROM. No nuchal rigidity but she does have a mild resting bobbing head tremor. CARDIAC: +S1S2 RRR, no murmurs. RESPIRATORY: Clear to auscultation. No wheezes or rales. Normal respiratory effort. GI: +BS, soft, non-distended. Positive tenderness to palpation throughout, most notably in the epigastric region. Is not tender suprapubically. EXTREMITIES: No pedal edema or calf tenderness. Has a large right knee brace on. NEURO: Has a resting head/neck and right foot tremor. Lines: PIV. Results & Data Laboratory Results 09/03/18 09/03/18 09/02/18 Range/Units 00:25 00:25 22:31 WBC (4.8-10.8) K/uL RBC (4.2-5.4) M/uL Hgb (12.0-16.0) g/dL Hct (37-47) % MCV (80-100) fL MCH (25-34) pg MCHC (32-36) g/dL RDW Std Deviation (36.4-46.3) fL RDW Coeff of Cruz (11.5-14.5) % Plt Count (130-400) K/uL MPV (7.4-10.4) fL Immature Gran % (Auto) % Neut % (Auto) % Lymph % (Auto) % [place] % (Auto) % Eos % (Auto) % Baso % (Auto) % Immature Gran # (Auto) (0.00-0.02) K/uL Neut # (Auto) (1.4-6.5) K/uL Lymph # (Auto) (1.2-3.4) K/uL [place] # (Auto) (0.11-0.59) K/uL Eos # (Auto) (0-0.5) K/uL Baso # (Auto) (0-0.2) K/uL PT 11.0 INR 1.1 Sodium (136-145) mmol/L Potassium 4.1 (3.5-5.1) mmol/L Chloride (98-107) mmol/L Carbon Dioxide (21-32) mmol/L Anion Gap (3-11) BUN (7-18) mg/dl Creatinine (0.6-1.2) mg/dl Est Cr Clr Drug Dosing ml/min Est GFR ( Amer) Est GFR (Non-Af Amer) BUN/Creatinine Ratio (10-20) Glucose (70-99) mg/dl Calcium (8.5-10.1) mg/dl Phosphorus (2.5-4.9) mg/dl Magnesium 1.4 L (1.8-2.4) mg/dl Total Bilirubin (0.2-1) mg/dl AST 61 H (15-37) U/L ALT (12-78) U/L Alkaline Phosphatase (45-117) U/L Lactate Dehydrogenase 205 (84-246) U/L Troponin I (0-0.045) ng/ml NT-Pro-B Natriuret Pep (0-1800) pg/ml Total Protein (6.4-8.2) gm/dl Albumin (3.4-5.0) gm/dl Globulin (2.5-4.0) gm/dl Albumin/Globulin Ratio (0.9-2) Lipase (73-393) U/L Urine Color Urine Appearance (Clear) Urine pH (4.5-7.5) Ur Specific [place] (1.000-1.030) Urine Protein (Negative) Urine Glucose (UA) (Negative) Urine Ketones (Negative) Urine Blood (Negative) Urine Nitrite (Negative) Urine Bilirubin (Negative) Urine Urobilinogen (Negative) Ur Leukocyte Esterase (Negative) Urine WBC (Auto) (0-5) /hpf Urine RBC (Auto) (0-4) /hpf U Hyaline Cast (Auto) (0-5) /lpf U Epithel Cells (Auto) (0-5) /lpf Urine Bacteria (Auto) (Negative) Influenza Type A (PCR) (Neg) Influenza Type B (PCR) (Neg) 09/02/18 09/02/18 09/02/18 Range/Units 21:45 21:40 21:35 WBC (4.8-10.8) K/uL RBC (4.2-5.4) M/uL Hgb (12.0-16.0) g/dL Hct (37-47) % MCV (80-100) fL MCH (25-34) pg MCHC (32-36) g/dL RDW Std Deviation (36.4-46.3) fL RDW Coeff of Cruz (11.5-14.5) % Plt Count (130-400) K/uL MPV (7.4-10.4) fL Immature Gran % (Auto) % Neut % (Auto) % Lymph % (Auto) % [place] % (Auto) % Eos % (Auto) % Baso % (Auto) % Immature Gran # (Auto) (0.00-0.02) K/uL Neut # (Auto) (1.4-6.5) K/uL Lymph # (Auto) (1.2-3.4) K/uL [place] # (Auto) (0.11-0.59) K/uL Eos # (Auto) (0-0.5) K/uL Baso # (Auto) (0-0.2) K/uL PT INR Sodium 138 (136-145) mmol/L Potassium (3.5-5.1) mmol/L Chloride 102 (98-107) mmol/L Carbon Dioxide 29 (21-32) mmol/L Anion Gap 7.0 (3-11) BUN 19 H (7-18) mg/dl Creatinine 0.88 (0.6-1.2) mg/dl Est Cr Clr Drug Dosing 46.9 ml/min Est GFR ( Amer) 71.4 Est GFR (Non-Af Amer) 61.6 BUN/Creatinine Ratio 21.9 H (10-20) Glucose 187 H (70-99) mg/dl Calcium 9.3 (8.5-10.1) mg/dl Phosphorus 3.4 (2.5-4.9) mg/dl Magnesium (1.8-2.4) mg/dl Total Bilirubin 0.9 (0.2-1) mg/dl AST (15-37) U/L ALT 61 (12-78) U/L Alkaline Phosphatase 122 H (45-117) U/L Lactate Dehydrogenase (84-246) U/L Troponin I < 0.015 (0-0.045) ng/ml NT-Pro-B Natriuret Pep 915 (0-1800) pg/ml Total Protein 7.0 (6.4-8.2) gm/dl Albumin 3.2 L (3.4-5.0) gm/dl Globulin 3.8 (2.5-4.0) gm/dl Albumin/Globulin Ratio 0.8 L (0.9-2) Lipase 73682 H (73-393) U/L Urine Color Yellow Urine Appearance Cloudy H (Clear) Urine pH 7.5 (4.5-7.5) Ur Specific [place] 1.020 (1.000-1.030) Urine Protein Negative (Negative) Urine Glucose (UA) Negative (Negative) Urine Ketones Trace H (Negative) Urine Blood 3+ H (Negative) Urine Nitrite Negative (Negative) Urine Bilirubin Negative (Negative) Urine Urobilinogen Negative (Negative) Ur Leukocyte Esterase 2+ H (Negative) Urine WBC (Auto) >30 H (0-5) /hpf Urine RBC (Auto) >30 H (0-4) /hpf U Hyaline Cast (Auto) 1-5 (0-5) /lpf U Epithel Cells (Auto) 20-30 H (0-5) /lpf Urine Bacteria (Auto) Negative (Negative) Influenza Type A (PCR) Neg for Influ A (Neg) Influenza Type B (PCR) Neg for Influ B (Neg) 09/02/18 09/02/18 Range/Units 21:35 21:35 WBC 11.81 H (4.8-10.8) K/uL RBC 4.79 (4.2-5.4) M/uL Hgb 14.7 (12.0-16.0) g/dL Hct 43.9 (37-47) % MCV 91.6 (80-100) fL MCH 30.7 (25-34) pg MCHC 33.5 (32-36) g/dL RDW Std Deviation 46.9 H (36.4-46.3) fL RDW Coeff of Cruz 13.8 (11.5-14.5) % Plt Count 202 (130-400) K/uL MPV 10.0 (7.4-10.4) fL Immature Gran % (Auto) 0.2 % Neut % (Auto) 86.0 % Lymph % (Auto) 9.7 % [place] % (Auto) 3.7 % Eos % (Auto) 0.3 % Baso % (Auto) 0.1 % Immature Gran # (Auto) 0.02 (0.00-0.02) K/uL Neut # (Auto) 10.15 H (1.4-6.5) K/uL Lymph # (Auto) 1.15 L (1.2-3.4) K/uL [place] # (Auto) 0.44 (0.11-0.59) K/uL Eos # (Auto) 0.04 (0-0.5) K/uL Baso # (Auto) 0.01 (0-0.2) K/uL PT Cancelled INR Cancelled Sodium (136-145) mmol/L Potassium (3.5-5.1) mmol/L Chloride (98-107) mmol/L Carbon Dioxide (21-32) mmol/L Anion Gap (3-11) BUN (7-18) mg/dl Creatinine (0.6-1.2) mg/dl Est Cr Clr Drug Dosing ml/min Est GFR ( Amer) Est GFR (Non-Af Amer) BUN/Creatinine Ratio (10-20) Glucose (70-99) mg/dl Calcium (8.5-10.1) mg/dl Phosphorus (2.5-4.9) mg/dl Magnesium (1.8-2.4) mg/dl Total Bilirubin (0.2-1) mg/dl AST (15-37) U/L ALT (12-78) U/L Alkaline Phosphatase (45-117) U/L Lactate Dehydrogenase (84-246) U/L Troponin I (0-0.045) ng/ml NT-Pro-B Natriuret Pep (0-1800) pg/ml Total Protein (6.4-8.2) gm/dl Albumin (3.4-5.0) gm/dl Globulin (2.5-4.0) gm/dl Albumin/Globulin Ratio (0.9-2) Lipase (73-393) U/L Urine Color Urine Appearance (Clear) Urine pH (4.5-7.5) Ur Specific [place] (1.000-1.030) Urine Protein (Negative) Urine Glucose (UA) (Negative) Urine Ketones (Negative) Urine Blood (Negative) Urine Nitrite (Negative) Urine Bilirubin (Negative) Urine Urobilinogen (Negative) Ur Leukocyte Esterase (Negative) Urine WBC (Auto) (0-5) /hpf Urine RBC (Auto) (0-4) /hpf U Hyaline Cast (Auto) (0-5) /lpf U Epithel Cells (Auto) (0-5) /lpf Urine Bacteria (Auto) (Negative) Influenza Type A (PCR) (Neg) Influenza Type B (PCR) (Neg) Diagnostic Findings SINGLE VIEW CHEST IMPRESSION: 1. Cardiomegaly and cardiac pacemaker. There is no radiographic evidence of congestive failure. 2. No airspace consolidation or large pleural effusion is identified. CT a/p (per overnight rads read) showed severe pancreatitis without fluid collection. No CBD or gallbladder stones. Nondilated CBD. Enhancing area at the gallbladder fundus measures 1.3 cm. Bilateral nonobstructing renal stones. No bowel obstruction. Code Status & VTE Plan Code Status Full code VTE Prophylaxis Plan VTE Prophylaxis will be ordered: Yes Supervising Physician Co-Signing Physician Notes Patient seen and examined, chart reviewed, case discussed with Dr. Pierre and I agree with his assessment and plan as documented above. Briefly, patient is an 83yo female presenting with acute onset n/v/abdominal pain that occurred after lunch today. Found with pancreatitis. On exam patient is afebrile, HD stable, NAD Skin - no jaundice HEENT - mmm, neck supple Heart - +S1/S2, regular, no m/r/g Lungs - CTA Abd - epigastric tenderness with voluntary guarding Ext - no edema Labs and images reviewed, markedly elevated lipase, leukocytosis. Assessment/Plan: 83yo female presenting with pancreatitis. No EtOH intake, does not appear to have gallstones, no new medications -Admit to medical floor. RUQUS. Pain control. Nausea control. IVF -Remainder of plan as above -Repeat UA, if hematuria present second time may need outpatient urology workup Resident Activity Tracking Resident Involvement: Resident Care Provided Care Provided: Adult Hospital Medicine
[2018-09-03] MEDS: LACTATED RINGER'S 1,000 ML IV SCH ×3 (02:33→22:10)
[2018-09-03] MEDS ORDERED: ALPRAZolam 0.25 MG TABLET PO PRN (03:51)
[2018-09-03] MEDS ORDERED: LOPERAMIDE HCL 2 MG CAP PO PRN (03:51)
[2018-09-03] MEDS ORDERED: ONDANSETRON INJ 2 MG/ML 2 ML VIAL IV PRN (03:51)
[2018-09-03] MEDS ORDERED: DOCUSATE SODIUM 100 MG CAP PO PRN (03:51)
[2018-09-03] MEDS ORDERED: PHARMACY GLYCEMIC MGMT CONSULT PRN (05:44)
[2018-09-03] MEDS ORDERED: CARBOHYDRATES FOR HYPOGLYCEMIA PO PRN (05:49)
[2018-09-03] MEDS ORDERED: GLUCAGON FOR INJ 1 MG VIAL IM PRN (05:49)
[2018-09-03] MEDS ORDERED: GLUCOSE 10 TABS/TUBE PO PRN (05:49)
[2018-09-03] MEDS ORDERED: DEXTROSE 50% 50 ML SYRINGE IV PRN (05:49)
[2018-09-03] MEDS ORDERED: GLUCOSE 40% GEL 15 GM TUBE PO PRN (05:49)
--- NOTE | 2018-09-03 06:41 | CT Scan Report ---
CT abd pelvis IV con only CT DOSE: 250.65 mGy.cm HISTORY: Pain. Nausea. abd pain, n/v TECHNIQUE: Multiaxial CT images of the abdomen and pelvis were performed following the use of intrave nous contrast. A dose lowering technique was utilized adhering to the principles of ALARA. COMPARISON STUDY: None. FINDINGS: Lung bases are clear. Liver and spleen are uniform. Kidneys negative for hydronephrosis. Th ere are small bilateral renal cysts. There is 7 mm nonobstructing calcification lower pole left kidne y. There is evidence for edematous change of the pancreas and surrounding infiltrative change. There is moderate fluid within the left paracolic gutter and left mid abdominal region. There is no evidence for drainable abscess or collection. The bowel pattern is considered nonobstruct maryanne. Bladder is midline. IMPRESSION: 1. Significant pancreatitis with moderate surrounding peripancreatic infiltrative change and fluid. 2. No evidence for drainable abscess collection or pseudocyst. 3. Nonobstructive bowel pattern. 4. 7 mm nonobstructing calcification lower pole left as well as right kidney. 5. Bilateral renal cysts. The above report was generated using voice recognition software. It may contain grammatical, syntax or spelling errors. Electronically signed by: Darius James M.D. 09/03/2018 6:39 AM
[2018-09-03] MEDS: INSULIN ASPART 100 UNITS/ML 3 ML PEN SC SCH ×3 (06:49→18:33)
--- NOTE | 2018-09-03 07:11 | Ultrasound Report ---
ABDOMINAL ULTRASOUND, RIGHT UPPER QUADRANT HISTORY: RUQ u/s, pancreatitis, eval for stones/local path. COMPARISON: Abdomen and pelvis CT 09/02/2018. FINDINGS: Pancreas: The pancreatic duct is top normal in diameter measuring 3 mm. The pancreas is hypoechoic. N o peripancreatic fluid collections. Liver: Unremarkable. Gallbladder: A few punctate gallstones. The gallbladder is mildly distended. No gallbladder wall thic kening. Focal adenomyomatosis within the gallbladder fundus. CBD: Borderline dilated at 8.2 mm. Right kidney: Severe cortical thinning and a few small cysts. There is a 1 cm stone at the lower pole . IMPRESSION: 1. Gallbladder is mildly distended. No gallbladder wall thickening. A few small gallstones are noted. 2. Borderline dilated common bile duct at 8.2 mm for age. The main pancreatic duct is top normal in d iameter. 3. Hypoechoic pancreas. However, no peripancreatic fluid collections. 4. Right-sided nephrolithiasis. No hydronephrosis. Electronically signed by: Javid Gil M.D. 09/03/2018 7:10 AM
[2018-09-03] MEDS: SOTALOL HCL 80 MG TAB PO SCH ×2 (08:47→20:48)
[2018-09-03] MEDS: ATENOLOL 50 MG TABLET PO SCH (08:48)
[2018-09-03] MEDS: APIXABAN 2.5 MG TAB PO SCH ×2 (08:48→20:48)
[2018-09-03] MEDS: methIMAzole 5 MG TABLET PO SCH (08:48)
[2018-09-03] MEDS: dilTIAZem HCL 240 MG CAPCR PO SCH (08:48)
[2018-09-03] MEDS: clonazePAM 0.5 MG TAB PO SCH ×2 (08:54→20:49)
--- NOTE | 2018-09-03 09:55 | Pharmacy Report ---
Glycemic Control Consultation - Date of Service September 03, 2018 - Scope Scope: Glycemic Pharmacist consulted by Dr Pierre on 09/03/18 for glycemic control and to write orders per [facility] inpatient glycemic control protocol - Objective Weight: 56.6 kg Accuchecks BSG (last 24hrs): 09/02/18 09/03/18 21:35 06:43 Glucose 187 H POC Glucose 178 H Laboratory Data (last 24hrs): 09/02/18 09/03/18 21:35 00:25 Potassium 4.1 Carbon Dioxide 29 Anion Gap 7.0 Creatinine 0.88 Est Cr Clr Drug Dosing 46.9 - Recent Pertinent Medications Outpatient Anti-diabetic Regimen: * Lantus 16 units SQ qHS, metformin 500 mg PO BID * A1c = 6.8 % (04/24/18) - Assessment & Plan Assessment & Plan: ASSESSMENT: * 83 yr old F admitted with acute abdominal pain and pancreatitis. Patient reports sudden onset of nausea and vomiting. * Decent outpatient glycemic control on Lantus plus metformin. Patient is currently NPO. Metformin will be held and she will be maintained on SQ basal/ bolus insulin regimen. * Fasting BSG of 178 mg/dL is elevated. I suspect Anastasiia did not receive Lantus yesterday. She takes her Lantus at bedtime at home and presented to the ED around that time last evening. I will give her a partial dose this morning but keep the remainder of her Lantus dose at bedtime to keep things consistent with home regimen. * Continue current Novolog parameters until further BSG data is available. PLAN FOR INPATIENT GLYCEMIC CONTROL: * Holding outpatient oral diabetes medications * Basal insulin * Lantus 5 units SQ now, then per scale at HS * 8 units for BSG less than 160 mg/dL (total of 13 units is 20% reduction in home dose) * 11 units for BSG 160 mg/dL or more * Bolus insulin * NovoLog per scale ACHS or Q6hrs while NPO * Goal Range: Low 120 mg/dL - High 160 mg/dL * Correction Factor: 40 mg/dL/unit * Carb ratio: 1 unit for every 15 grams of CHO * Please note that the plan above was derived based on current level of insulin resistance and hospital stress. These recommendations are appropriate for inpatient admission only. Plan of care upon discharge will need to be reassessed to avoid potential outpatient hypo/hyperglycemia. Thank you.
[2018-09-03] MEDS ORDERED: INSULIN GLARGINE SOLOSTAR 100 UNITS/ML 3 ML PEN SC SCH (10:00)
[2018-09-03] MEDS: MoRPHine SULFATE 2 MG/ML CARP IV PRN ×2 (11:54→15:49)
[2018-09-03] MEDS ORDERED: ESCITALOPRAM OXALATE ORAL SOLN 5 MG/5 ML PO ONE (14:00)
[2018-09-03 14:25] LABS: Basophils # (auto) 0.01 K/uL (0-0.2); Basophils % (auto) 0.1 %; Eosinophils # (auto) 0.07 K/uL (0-0.5); Eosinophils % (auto) 0.9 %; Hematocrit (blood only) 39.3 % (37-47); Hemoglobin 12.5 g/dL (12.0-16.0); Immature Granulocytes # (auto) 0.02 K/uL (0.00-0.02); Immature Granulocytes % (auto) 0.2 %; Lymphocytes # (auto) 1.28 K/uL (1.2-3.4); Lymphocytes % (auto) 15.7 %; Mean Corpuscular Hgb Conc 31.8 g/dL (32-36); Mean Corpuscular Volume 91.8 fL (80-100); Mean Platelet Volume 9.5 fL (7.4-10.4); Monocytes # (auto) 0.87 K/uL (0.11-0.59); Monocytes % (auto) 10.7 %; Neutrophils # (auto) 5.91 K/uL (1.4-6.5); Neutrophils % (auto) 72.4 %; Platelet Count 179 K/uL (130-400); RDW Coefficient of Variation 14.2 % (11.5-14.5); RDW Standard Deviation 47.9 fL (36.4-46.3); Red Blood Count 4.28 M/uL (4.2-5.4); White Blood Count 8.16 K/uL (4.8-10.8)
[2018-09-03 14:43] LABS: BUN Creatinine Ratio 27.4 (10-20); Calcium 8.5 mg/dl (8.5-10.1); Creatinine Clr Calc Pharmacy 59.7 ml/min; Est GFR (Non-African American) 82.8; Magnesium 1.8 mg/dl (1.8-2.4); Potassium 3.8 mmol/L (3.5-5.1)
--- NOTE | 2018-09-03 16:04 | Consultation Report ---
DATE OF CONSULTATION: 09/03/2018 REASON FOR EVALUATION: Acute pancreatitis. HISTORY OF PRESENT ILLNESS: The patient is an 83-year-old who began to have acute onset of epigastric pain, which was severe and constant, radiating to the back, associated with 8 episodes of vomiting. Patient says it was as severe as her labor pains except it was constant and not intermittent. She presented to the Emergency Room where she was found to have a lipase over 26,000, and a CT scan that showed acute pancreatic inflammation but no pseudocyst or abscess. She is admitted for further evaluation. Since hospitalization, she has undergone an ultrasound that showed just 2 small gallstones but no obvious common duct stones. She has about 6 alcoholic drinks per year and has not been on any new medications in the last several months. She is unclear what her lipid levels are. She has been treated with IV fluids, bowel rest, and electrolyte correction. She does have a pacemaker, so an MRCP is probably contraindicated. This is her first episode of pancreatitis. PAST MEDICAL HISTORY: Remarkable for atrial fibrillation, status post ablation. She is on atenolol, sotalol, diltiazem, and Eliquis for that. She has a pacemaker. She is hyperthyroid, on methimazole. She has congestive heart failure. She has had a DVT with pulmonary embolism in 07/2017. She has type 2 diabetes, anxiety, depression, essential tremor, chronic kidney disease stage III, anemia, and pulmonary nodules. MEDICATIONS: Per list. ALLERGIES: LEVOFLOXACIN AND PROPOFOL, BOTH CAUSE NAUSEA. FAMILY HISTORY: Noncontributory. SOCIAL HISTORY: Patient is a former smoker. REVIEW OF SYSTEMS: Positive for continued pain in the epigastric area but less so than yesterday. PHYSICAL EXAMINATION: GENERAL: Patient appears in no acute distress. VITAL SIGNS: Blood pressure is 200/88, pulse 64, and O2 saturation on room air is 94%. RESPIRATORY: Lungs are clear. CARDIOVASCULAR: Heart shows a pacemaker implanted in left anterior chest with an irregularly irregular rhythm. GASTROINTESTINAL: Abdomen shows low midline scar from a previous hysterectomy. There is tenderness in the epigastric and left upper quadrants but no mass or rebound. IMPRESSION: Patient has acute onset pancreatitis of unclear etiology. Plan on checking a triglyceride level although this was a little bit inaccurate during the setting of acute pancreatitis. It is unlikely that she has gallstones causing her pancreatitis as her alkaline phosphatase is only mildly elevated, and her bilirubin is normal. I will continue to follow the patient during her hospitalization and provide supportive comments as needed. In the meantime, I will continue her on bowel rest and IV fluids, and as soon as her appetite returns, I would try to begin full liquid diet.
--- NOTE | 2018-09-03 18:51 | Hospitalist Progress Note ---
Date of Service September 03, 2018 Assessment & Plan (1) Acute pancreatitis: 83-year-old female was admitted on 03 September 2018 for acute abdominal pain and pancreatitis. Acute pancreatitis: Acute onset afternoon of admission of nausea/vomiting and abdominal pain. Lipase > 26K. Afebrile, not tachycardic, WBC 12. [place]�s ONE. -Continue IV fluid and supportive care -Given "not normal" right upper quadrant ultrasound, will ask GI for evaluation regarding biliary etiology of this. Considered MRCP, but uncertain if this can be done with her pacemaker. Hematuria: Patient denies any urinary symptoms. ED UA positive for WBCs, RBCs, but multiple epithelial cells. Urine culture sent. Will not start any empiric antibiotic treatment. Hypertension: PMH same. Admit BP 217/88, however it quickly resolved to 123/87 after IV fluids. See afib meds below. Ongoing medical issues: - A. fib: S/p ablation. At home is on atenolol, sotalol, diltiazem, and Eliquis. Continue here. - Hyperthyroidism: Unclear if this is hypo- or hyperthyroidism. At home patient is on methimazole. Continue here. - Diastolic CHF: Echo in July 2017 noted EF of 60-65%, grade 1 diastolic dysfunction, mild and AR. - History of BLE DVT and PE: Jul 2017, s/p IVC filter placement. At home is on Eliquis. Continue here. - Diabetes type 2: At home is on Lantus and metformin. Ordered glycemic consult since NPO. - Anxiety/depression: At home is on clonazepam and xanax as needed. Continue here. - Hyperlipidemia: Has previously been on atorvastatin. - Essential tremor: Previously was on propranolol. - CKD stage 3: Per old medical records, though admit Cr 0.88. - Anemia: Per old medical records, though admit Hb 14.7. Some of that may be hemoconcentration. - Pulmonary nodules. Code status: Full code. Diet: N.p.o but can take PO meds. DVT prophy: Continue home Eliquis. PT/OT: Deferred. Disbo: Admit to MedSurg. Anticipate ability to discharge her to home (2) Hematuria: (3) Hypertension: (4) Atrial fibrillation: (5) Hyperthyroidism: (6) Diastolic congestive heart failure: (7) History of DVT (deep vein thrombosis): (8) History of pulmonary embolus (PE): (9) Diabetes mellitus, type 2: (10) Anxiety: (11) Depression: (12) Dyslipidemia: (13) Essential tremor: Subjective Generally feeling better overall, although the thought of food still makes her nauseated. Her pain is improved. Review of Systems All systems reviewed & are unremarkable except as noted in HPI & below Physical Exam 2 Vital Signs (Past 24 Hours): Last Vital Signs Temp 36.5 C 09/03/18 14:55 Pulse 60 09/03/18 14:55 Resp 18 09/03/18 14:55 BP 158/76 H 09/03/18 14:55 Pulse Ox 91 09/03/18 14:55 Physical Exam: General she is awake alert oriented x3, pleasant no acute distress. HEENT normocephalic atraumatic mucous membranes are moist. Abdomen is soft she does have epigastric tenderness with no guarding rebound or rigidity
[2018-09-03] MEDS: INSULIN GLARGINE SOLOSTAR 100 UNITS/ML 3 ML PEN SC SCH (20:52)
[2018-09-04] MEDS: INSULIN ASPART 100 UNITS/ML 3 ML PEN SC SCH ×5 (00:30→20:25)
[2018-09-04] MEDS: LACTATED RINGER'S 1,000 ML IV SCH ×3 (06:16→21:38)
[2018-09-04 06:36] LABS: Basophils # (auto) 0.01 K/uL (0-0.2); Basophils % (auto) 0.1 %; Eosinophils # (auto) 0.13 K/uL (0-0.5); Eosinophils % (auto) 1.5 %; Hemoglobin 11.7 g/dL (12.0-16.0); Immature Granulocytes # (auto) 0.01 K/uL (0.00-0.02); Immature Granulocytes % (auto) 0.1 %; Lymphocytes % (auto) 16.3 %; Mean Corpuscular Hgb Conc 32.5 g/dL (32-36); Mean Corpuscular Volume 91.8 fL (80-100); Mean Platelet Volume 9.5 fL (7.4-10.4); Monocytes # (auto) 0.92 K/uL (0.11-0.59); Monocytes % (auto) 10.7 %; Neutrophils % (auto) 71.3 %; Platelet Count 146 K/uL (130-400); RDW Coefficient of Variation 14.2 % (11.5-14.5); RDW Standard Deviation 47.5 fL (36.4-46.3); Red Blood Count 3.92 M/uL (4.2-5.4); White Blood Count 8.57 K/uL (4.8-10.8)
[2018-09-04 07:05] LABS: Calcium 8.4 mg/dl (8.5-10.1); Creatinine Clr Calc Pharmacy 69.2 ml/min; Est GFR (African American) 100.8; Est GFR (Non-African American) 86.9; Potassium 3.7 mmol/L (3.5-5.1)
[2018-09-04] MEDS: SOTALOL HCL 80 MG TAB PO SCH ×2 (08:18→20:23)
[2018-09-04] MEDS: APIXABAN 2.5 MG TAB PO SCH ×2 (08:19→20:22)
[2018-09-04] MEDS: dilTIAZem HCL 240 MG CAPCR PO SCH (08:19)
[2018-09-04] MEDS: methIMAzole 5 MG TABLET PO SCH (08:19)
[2018-09-04] MEDS: ATENOLOL 50 MG TABLET PO SCH ×2 (08:19→20:23)
[2018-09-04] MEDS: ESCITALOPRAM OXALATE ORAL SOLN 5 MG/5 ML PO SCH (08:19)
[2018-09-04] MEDS: clonazePAM 0.5 MG TAB PO SCH ×2 (08:20→20:22)
--- NOTE | 2018-09-04 09:04 | Pharmacy Report ---
Pharmacy Glycemic Short Note 2 - Date of Service September 04, 2018 - Glycemic Short BSG Results (Last 24 hours): 09/03/18 09/03/18 09/03/18 10:52 14:12 18:21 Glucose 128 H POC Glucose 131 H 116 H 09/04/18 09/04/18 09/04/18 00:06 06:14 06:21 Glucose 68 L POC Glucose 89 73 OUTPATIENT ANTIDIABETIC REGIMEN: * Lantus 16 units SQ qHS, metformin 500 mg PO BID * A1c = 6.8 % (04/24/18) ASSESSMENT: * 83 yr old F admitted with acute abdominal pain and pancreatitis * pt remains NPO for bowel rest * received 14 units of insulin yesterday (13 units of Lantus/1 unit of Novolog) * BSGs are at or below goal range * Fasting BSG of 73 mg/dL is slightly below goal. Lantus dose was reduced ~20% yesterday for NPO status. A conservative reduction was selected because it was unknown if patient administered her HS Lantus dose on the day of admission. Will further reduce today and add a hold parameter for BSG less than 100 mg/dL. * Patient is not requiring bolus insulin at this time, therefore no changes will be made to Novolog parameters. PLAN FOR INPATIENT GLYCEMIC CONTROL: * Holding outpatient oral diabetes medications * Basal insulin - decrease * Lantus SQ per scale at HS * 0 units for BSG < 100 mg/dL * 8 units for BSG 100 - 180 (50% reduction in home dose) * 11 units for BSG > 180 (30% reduction in home dose) * Bolus insulin - no change * NovoLog per scale ACHS or Q6hrs while NPO * Goal Range: Low 120 mg/dL - High 160 mg/dL * Correction Factor: 40 mg/dL/unit * Carb ratio: 1 unit for every 15 grams of CHO PLAN FOR DISCHARGE: * A1c of 6.8% from March of this year is at goal. Updated A1c has been ordered for 09/05/18. If value is similar, recommend continuation of home regimen on discharge. Thank you.
--- NOTE | 2018-09-04 14:24 | Family Medicine Progress Note ---
Date of Service September 04, 2018 Assessment & Plan (1) Acute pancreatitis: 83-year-old female was admitted on 03 September 2018 for acute abdominal pain and pancreatitis. Acute pancreatitis: Acute onset afternoon of admission of nausea/vomiting and abdominal pain. Lipase > 26K. Afebrile, not tachycardic, WBC 12. [place]�s ONE. No clear evidence of infection so to continue empiric antibiotics specifically for pancreatitis. Goal glucose under 150. Goal Mg over 2. Goal calcium in normal range. - In ED, treated with normal saline bolus plus maintenance IVF as well as Rocephin. Sent blood cultures. - Ideally, would run LR at 3 mL/kg/hr. However, given age and history of CHF, will start at 125 mL an hour. - Will give some supplemental magnesium and recheck in afternoon. - Ordered RUQ u/s. - Morphine prn for pain. Patient was quite nervous about being sedated with narcotics, so we agreed to start at very low 1 mg dosing. Zofran prn for nausea. Hematuria: Patient denies any urinary symptoms. ED UA positive for WBCs, RBCs, but multiple epithelial cells. Urine culture sent. Will not start any empiric antibiotic treatment. Hypertension: PMH same. Admit BP 217/88, however it quickly resolved to 123/87 after IV fluids. See afib meds below. Ongoing medical issues: - A. fib: S/p ablation. At home is on atenolol, sotalol, diltiazem, and Eliquis. Continue here. - Hyperthyroidism: Unclear if this is hypo- or hyperthyroidism. At home patient is on methimazole. Continue here. - Diastolic CHF: Echo in July 2017 noted EF of 60-65%, grade 1 diastolic dysfunction, mild and AR. - History of BLE DVT and PE: Jul 2017, s/p IVC filter placement. At home is on Eliquis. Continue here. - Diabetes type 2: At home is on Lantus and metformin. Ordered glycemic consult since NPO. - Anxiety/depression: At home is on clonazepam and xanax as needed. Continue here. - Hyperlipidemia: Has previously been on atorvastatin. - Essential tremor: Previously was on propranolol. - CKD stage 3: Per old medical records, though admit Cr 0.88. - Anemia: Per old medical records, though admit Hb 14.7. Some of that may be hemoconcentration. - Pulmonary nodules. Code status: Full code. Diet: N.p.o initially but can take PO meds. DVT prophy: Continue home Eliquis. PT/OT: Deferred. Disbo: Admit to MedSurg. (2) Hematuria: (3) Hypertension: (4) Atrial fibrillation: (5) Hyperthyroidism: (6) Diastolic congestive heart failure: (7) History of DVT (deep vein thrombosis): (8) History of pulmonary embolus (PE): (9) Diabetes mellitus, type 2: (10) Anxiety: (11) Depression: (12) Dyslipidemia: (13) Essential tremor: Supervising Physician Co-Signing Physician Notes I personally examined the patient and verified all [place] points of history and exam, discussed case, and agree with decision making with Dr Gillespie Feeling better, less abdominal pain. Vitals noted, in general she is awake and alert no acute distress. HEENT normocephalic atraumatic mucous membranes are moist. Lungs are unlabored no accessory muscle use good effort. Skin shows no rashes no pallor or icterus. Abdomen shows ongoing epigastric tenderness but far less than yesterday no guarding no rebound no rigidity Acute pancreatitis�she is improving slowly advance diet work towards home. Continue to follow for any signs or symptoms of biliary pathology closely. No indication for acute intervention at this time. Subjective Patient is resting comfortably in bed this morning in no acute distress. She states that her abdominal pain has significantly improved to the point where she can now lay on her right side. The patient denies any episodes of vomiting overnight and denies any nausea at this time. She states she is beginning to develop an appetite and would like to advance her diet. She denies any fevers, chills, sweats, diarrhea, constipation, chest pain, shortness of breath, or any other acute complaints. Review of Systems See HPI for pertinent positives and negatives. A total of ten systems were reviewed and were otherwise negative. Physical Exam 2 Vital Signs (Past 24 Hours): Last Vital Signs Temp 36.8 C 09/04/18 07:16 Pulse 60 09/04/18 07:16 Resp 16 09/04/18 07:16 BP 176/73 H 09/04/18 07:16 Pulse Ox 93 09/04/18 07:16 Constitutional: WD/WN, vitals as above Eyes: PERRL, conjunctivae normal, anicteric sclerae ENMT: external ear and nose normal, oropharynx normal Neck: trachea midline, no thyromegaly Respiratory: normal respiratory effort, lungs clear to auscultation Cardiovascular: RRR, no murmur, no edema Gastrointestinal (Abdomen): Inspection/Auscultation: abdomen normal to inspection and normal bowel sounds; abdomen not distended Percussion/ Palpation: abdomen soft; no guarding, abdomen not rigid, no hepatomegaly and no splenomegaly Mild tenderness over the epigastric/ supraumbilical region. Abdomen appears normal with no visible hematoma, swelling, or other abnormalities. Musculoskeletal: no cyanosis or clubbing, extremities motor strength 5/5 Skin: no rashes, warm and dry Psychiatric: A+Ox3, euthymic affect Resident Activity Tracking Resident Involvement: Resident Care Provided Care Provided: Adult Hospital Medicine
[2018-09-04] MEDS ORDERED: Nursing to Pharmacy Communication ONE (15:05)
[2018-09-04 18:43] LABS: Albumin Level 2.6 gm/dl (3.4-5.0); Bilirubin Direct 0.2 mg/dl (0-0.2); Bilirubin,Total 0.6 mg/dl (0.2-1); Total Protein 5.7 gm/dl (6.4-8.2)
[2018-09-04] MEDS: INSULIN GLARGINE SOLOSTAR 100 UNITS/ML 3 ML PEN SC SCH (20:23)
--- NOTE | 2018-09-04 21:49 | Progress Note ---
DATE: 09/04/2018 REASON FOR EVALUATION: Acute pancreatitis. SUBJECTIVE: The patient reports decreased epigastric pain and she was able to tolerate full liquids today with no significant exacerbation of her symptoms. She is passing gas and had 2 soft bowel movements today. OBJECTIVE: VITAL SIGNS: Normal except for a blood pressure of 187/72, room air saturation is 92%, she is afebrile. ABDOMEN: Soft. There is no significant epigastric tenderness today compared to yesterday. LABORATORY DATA: Her lipase has decreased to 1800 from [address]43 yesterday. IMPRESSION: The patient has acute pancreatitis of unclear etiology. PLAN: We plan on repeating a liver profile to see if her alk phos has returned to normal. It is possible she may have passed a small gallstone. MRCP is contraindicated due to her pacemaker and as long as she is improving, I prefer not to proceed with an ERCP as it could exacerbate her pancreatitis. We will continue to follow the patient.
[2018-09-04] MEDS: MoRPHine SULFATE 2 MG/ML CARP IV PRN (23:37)
[2018-09-05] MEDS: LACTATED RINGER'S 1,000 ML IV SCH ×2 (04:15→14:09)
[2018-09-05 06:32] LABS: Estimated Average Glucose 146 mg/dl
[2018-09-05] MEDS: dilTIAZem HCL 240 MG CAPCR PO SCH (08:26)
[2018-09-05] MEDS: SOTALOL HCL 80 MG TAB PO SCH (08:26)
[2018-09-05] MEDS: clonazePAM 0.5 MG TAB PO SCH (08:27)
[2018-09-05] MEDS: APIXABAN 2.5 MG TAB PO SCH (08:27)
[2018-09-05] MEDS: ESCITALOPRAM OXALATE ORAL SOLN 5 MG/5 ML PO SCH (08:28)
[2018-09-05] MEDS: ATENOLOL 50 MG TABLET PO SCH (08:28)
[2018-09-05] MEDS: methIMAzole 5 MG TABLET PO SCH (08:28)
[2018-09-05] MEDS: INSULIN ASPART 100 UNITS/ML 3 ML PEN SC SCH ×2 (08:33→12:37)
--- NOTE | 2018-09-05 11:18 | Pharmacy Report ---
Pharmacy Glycemic Short Note 2 - Date of Service September 05, 2018 - Glycemic Short BSG Results (Last 24 hours): 09/04/18 09/04/18 09/04/18 11:49 12:12 16:27 POC Glucose 64 L* 92 137 H 09/04/18 09/05/18 09/05/18 19:51 07:18 07:19 POC Glucose 209 H 65 L* 71 09/05/18 07:42 POC Glucose 71 OUTPATIENT ANTIDIABETIC REGIMEN: * Lantus 16 units SQ qHS, metformin 500 mg PO BID * A1c = 6% (09/04/18) ASSESSMENT: 09/05 * Ms. Aponte received 17 units of insulin yesterday * She unfortunately had another episode of hypoglycemia this AM, after still receiving a lower dose of Lantus and advancing her diet * At this point, will need to reduce basal dose further. Will provide a scale again but max dose to be a 30% reduction from yesterday. * No change to Novolog parameters since postprandial BSGs were actually elevated yesterday once diet had been resumed 09/04 * 83 yr old F admitted with acute abdominal pain and pancreatitis * pt remains NPO for bowel rest * received 14 units of insulin yesterday (13 units of Lantus/1 unit of Novolog) * BSGs are at or below goal range * Fasting BSG of 73 mg/dL is slightly below goal. Lantus dose was reduced ~20% yesterday for NPO status. A conservative reduction was selected because it was unknown if patient administered her HS Lantus dose on the day of admission. Will further reduce today and add a hold parameter for BSG less than 100 mg/dL. * Patient is not requiring bolus insulin at this time, therefore no changes will be made to Novolog parameters. PLAN FOR INPATIENT GLYCEMIC CONTROL: * Continue to hold outpatient oral diabetes medications * Basal insulin - decrease again * Lantus SQ per scale at HS * 5 units for BSG < 100 mg/dL * 8 units for BSG 100 mg/dL or above (50% reduction in home dose) * Bolus insulin - no change * NovoLog per scale ACHS or Q6hrs while NPO * Goal Range: Low 120 mg/dL - High 160 mg/dL * Correction Factor: 40 mg/dL/unit * Carb ratio: 1 unit for every 15 grams of CHO PLAN FOR DISCHARGE: * A1c of 6% indicates that patient is well controlled, perhaps too well controlled for her age/comorbidities * If patient is experiencing hypoglycemia at home, would recommend reduction in Lantus dose. May consider 12 units qHS and f/u with outpatient provider. Thank you.
--- NOTE | 2018-09-05 16:22 | Progress Note ---
DATE: 09/05/2018 SUBJECTIVE: The patient was able to tolerate a low fat diet today without worsening pain. OBJECTIVE: VITAL SIGNS: Normal. GASTROINTESTINAL: Her abdomen is soft and nontender. Her liver tests have returned normal. I suspect that she may have passed a small stone that caused her pancreatitis, but with the normal liver tests at this point, no further intervention is necessary. IMPRESSION: Patient has acute pancreatitis, possibly from passage of a small stone. Patient will stay on a low fat diet for 2 weeks and follow up with her primary care physician as an outpatient. If her symptoms get worse, she can return to the hospital for further evaluation.
--- NOTE | 2018-09-05 17:04 | Discharge Summary ---
Date of Service September 05, 2018 Admission HPI Per Admitting Provider 83-year-old female says that around lunchtime on day prior to admission () she developed very acute onset of quite painful mid abdominal pain along with multiple episodes of vomiting. She does not recall eating anything out of the normal and says that her morning was unremarkable. She says she went for a one mile walk the day prior without any symptoms or difficulty. She denies any current diarrhea, chest pain, shortness of breath, or other focal symptoms. Denies any previous history of the same. Says she drinks wine perhaps 2-3 times per year, most recently a glass on [employer]. Past medical history includes hypertension, hyperlipidemia, A. fib, thyroid disease, diastolic CHF, bilateral DVTs and PE, diabetes type 2, anemia, anxiety , depression, CKD stage III, pulmonary nodules, essential tremor. Surgical history includes IVC filter placement, atrial fibrillation ablation, history of tonsillectomy, right knee replacement, hysterectomy. Social history includes never smoked, very rare wine consumption, and says she lives at the [facility]. Her daughter lives in [place]. Admission Exam Per Admitting Provider GENERAL: Awake, alert, well-appearing, pleasantly conversing, in no acute distress HENT: Normocephalic, atraumatic. Oropharynx with dry mucous membranes. EYES: Normal conjunctiva. Sclera non-icteric. NECK: Inspection normal. Supple and full ROM. No nuchal rigidity but she does have a mild resting bobbing head tremor. CARDIAC: +S1S2 RRR, no murmurs. RESPIRATORY: Clear to auscultation. No wheezes or rales. Normal respiratory effort. GI: +BS, soft, non-distended. Positive tenderness to palpation throughout, most notably in the epigastric region. Is not tender suprapubically. EXTREMITIES: No pedal edema or calf tenderness. Has a large right knee brace on. NEURO: Has a resting head/neck and right foot tremor. Lines: PIV. Principal Diagnosis Acute pancreatitis Discharge Exam General: In NAD, resting comfortable CV: RRR, no m/r/g Pulm: CTAB, equal breath sounds bilaterally Abdomen: +BS, mildly TTP in epigastric, RUQ and lower abdominal quadrants, non- distended LE: no LE pitting edema, no calf tenderness to palpation Discharge Data Allergies Allergy/AdvReac Type Severity Reaction Status Date / Time levofloxacin AdvReac Mild NAUSEA Verified 09/02/18 22:17 propofol AdvReac Mild NAUSEA Verified 09/02/18 22:17 Consultations 09/03/18 00:15 ED Decision to Admit Stat 09/03/18 10:18 Consult Gastroenterology Routine Ordered Studies 09/02/18 22:18 CT abd pelvis IV con only Urgent 09/03/18 03:51 US abdomen limited Urgent Hospital Course (1) Acute pancreatitis: 83-year-old female was admitted on 03 September 2018 for acute abdominal pain and pancreatitis. Acute pancreatitis: Afebrile, not tachycardic, WBC 12. [place]�s ONE. Lipase > 26K improved to 1806. Blood culture 1 contaminated and other NGTD Received one dose of rocephin in the ED Normal saline bolus plus LR maintenance IVF Morphine prn for pain. Zofran prn for nausea GI consulted: could have passed a gallstone but no ERCP recommenended as it can worsen pancreatitis and pt continued to improve. follow up with PCP recommended Hematuria: Patient denied any urinary symptoms. ED UA positive for WBCs, RBCs, but multiple epithelial cells. Urine negative. Hypertension: PMH same. Admit BP 217/88, however it quickly resolved to 123/87 after IV fluids. See afib meds below. Ongoing medical issues: - A. fib: S/p ablation. At home is on atenolol, sotalol, diltiazem, and Eliquis. Continued here. - Hyperthyroidism: Unclear if this is hypo- or hyperthyroidism. At home patient is on methimazole. Continued here. - Diastolic CHF: Echo in July 2017 noted EF of 60-65%, grade 1 diastolic dysfunction, mild and AR. - History of BLE DVT and PE: Jul 2017, s/p IVC filter placement. At home is on Eliquis. Continued here. - Diabetes type 2: At home is on Lantus and metformin. Was on Lantus/SSI - Anxiety/depression: At home is on clonazepam and xanax as needed. Continued here. - Hyperlipidemia: Has previously been on atorvastatin. - Essential tremor: Previously was on propranolol. - CKD stage 3: Per old medical records, though admit Cr 0.88. - Anemia: Hgb stable at 11.7 - recommend further outpt work up - Pulmonary nodules. Code status: Full code. Diet: N.p.o initially but advanced to low fat diet - recommended on discharge DVT prophy: Continued home Eliquis. (2) Hematuria: (3) Hypertension: (4) Atrial fibrillation: (5) Hyperthyroidism: (6) Diastolic congestive heart failure: (7) History of DVT (deep vein thrombosis): (8) History of pulmonary embolus (PE): (9) Diabetes mellitus, type 2: (10) Anxiety: (11) Depression: (12) Dyslipidemia: (13) Essential tremor: Total Time Total Time Spent Total Time Spent (In Minutes): <30 mins Total Time Includes: Examination of the Patient, Discharge Planning, Medication Reconciliation and Communication With Other Providers Discharge Plan Discharge Items Patient Disposition: Home - Self-Care Reason For Visit: ACUTE PANCREATITIS Discharge Diagnosis: acute pancreatitis Condition: Good Discharge Goals: Decrease discomfort, Diagnostic testing and Therapeutic intervention Activity: Resume your previous activity Non-emergency contact: Primary Care Provider Call non-emergency contact if: you have any medication questions, your symptoms worsen, your pain is worsening and your temperature is above 100.5 Diet: Carb Consistent or DM2 and Low Fat Addtl Provider Instructions: Ms. Aponte you were found to have inflammation of your pancreas which was treated and you felt better before being discharged Please follow the following instruction: Diet: carb consistent and low fat Follow up with your primary care doctor in 1-2 days after discharge Take your home medications as prescribed prior to hospitalization Please see your primary care doctor or return to the emergency room if you are having worsening symptoms such as abdominal pain, nausea, vomiting, fever Prescriptions: Continue metformin 500 mg Tablet 500 mg PO BID RF: 0 insulin glargine [Lantus U-100 Insulin] 100 unit/mL Solution 16 unit SUBCUT HS RF: 0 loperamide 2 mg Tablet 2 mg PO UD PRN (Reason: Diarrhea) RF: 0 diltiazem HCl 240 mg Capsule,Extended Release 24 Hr 240 mg PO DAILY RF: 0 sotalol 120 mg Tablet 120 mg PO Q12H RF: 0 alprazolam [Xanax] 0.25 mg Tablet 0.25 mg PO BID PRN (Reason: Anxiety) RF: 0 methimazole 5 mg Tablet 5 mg PO DAILY RF: 0 docusate sodium [Colace] 100 mg Capsule 100 mg PO DAILY PRN (Reason: Constipation) RF: 0 atenolol 50 mg Tablet 50 mg PO DAILY RF: 0 clonazepam 0.125 mg Tablet,Disintegrating 0.125 mg PO BID RF: 0 escitalopram oxalate 5 mg Tablet PO DAILY RF: 0 apixaban [Eliquis] 5 mg Tablet 5 mg PO BID RF: 0 Visit Report Forms: [facility] Stand-Alone Forms: [facility] Discharge Orders: Discharge Order (Routine); Ordered 09/05/18 Ordered By: Shashank Kumar Admission Data Admit Date/Time: 09/03/18 02:18 Attending Provider: Genaro Hensley Admit Provider: Yunior Pierre Primary Care Provider: Ace GARIBAY Providers: Rochelle Schaffer ; Dorian Keyes Service: Medical Other Interventions: Discharge Summary Assessment (RN) Last Done: 09/05/18 13:57 DC Date/Time DO NOT enter until pt leaves facility: 09/05/18 17:20 Supervising Physician Co-Signing Physician Notes I personally examined the patient and verified all [place] points of history and exam, discussed case, and agree with decision making with Dr Kumar. Feeling better, eating well, no nausea, minimal abdominal pain. Wants to go home. Vitals noted, in general she is in no acute distress. HEENT normocephalic atraumatic mucous membranes are moist. Lungs are unlabored no accessory muscle use good effort. Abdomen is soft minimal epigastric tenderness to fairly deep palpation no guarding rebound or rigidity. Acute pancreatitis�likely gallstone mediated with a stone this past. Certainly she has no need for urgent intervention. She does have a few punctate stones on ultrasound, making an elective cholecystectomy a reasonable thing to discuss with her PCP. That said given that this is been her only time with any sort of pancreatic or biliary symptoms, it is also reasonable to follow on a low-fat diet, given her age and comorbidities. Certainly should she have any sort of biliary colic at all let alone another episode of pancreatitis, then a cholecystectomy should definitely be done, otherwise this will be ongoing discussion with her PCP. She is stable for home. Resident Activity Tracking Resident Involvement: Resident Care Provided Care Provided: Adult [facility]
== END 2018-09-05 17:20 | disposition home or self-care (01) | DRG 439 ==
LOC: ED 20:55 → SUATTDRO 09-03 02:18 → 4E 09-03 02:18

== ENCOUNTER 2023-11-17 21:40 | Inpatient (IN) ==
--- NOTE | 2023-11-17 22:11 | Emergency Department Note ---
Impression & Plan SBO (small bowel obstruction), Abdominal pain, Nausea & vomiting ED Provider Note NAME: GISELE SINGH AGE: 88 SEX: F : 1935 ARRIVES VIA: Ambulance INFORMANT: Patient ED PROVIDER(S): Abilio Jensen MD CHIEF COMPLAINT: Abdominal pain, nausea and vomiting PLAN: Disposition: Admit MEDICAL DECISION MAKING: The patient is a pleasant 88-year-old woman with a past medical history of atrial fibrillation on Eliquis, hypertension, hyperlipidemia, diabetes, anemia with suspicion of GI bleed who presents to the emergency department via EMS from her assisted living facility at [facility] for intractable nausea and vomiting which occurred this evening after having dinner where she wondered whether or not the soup may have triggered her symptoms. She reports she had severe abdominal pain above her umbilicus that has fluctuated and correlated with vomiting episodes. She reports she did move her bowels earlier today and required some straining but not atypical for her. She reports she felt as though she could move her bowels when her pain began but was unable to. She reports the pain has dissipated since arriving to emergency department. She denies any recent fevers, chills, cough, congestion, urinary symptoms. On my evaluation the patient is fatigued appearing but no distress, afebrile with blood pressure 190/100s and vital signs otherwise stable. She appears clinically dry. She has mild tenderness of the mid abdomen without guarding or rebound. Abdomen is nondistended. EKG is paced without overt acute ischemia. WBC and platelets within normal limits. H/H similar to prior. Chemistry without metabolic acidosis. LFTs are unremarkable. High-sensitivity troponin 7.2, within normal limits. Lipase is not elevated. UA with WBCs albeit with epithelial cells present and no bacteria. Respiratory viral panel/Bio[employer] was negative. CT of the abdomen pelvis was performed and demonstrates evidence of small bowel obstruction with suspicion of etiology related to a small bowel lesion which is suspected Cecilio's for neoplasm possibly lymphoma. I did review the findings with the patient and her daughter at the bedside. She did confirm that she would not want surgery even if this would be offered. However she notes that she had complications with anesthesia on her recent endoscopy and understands that she is not a candidate to undergo anesthesia. Additionally, this subsequently led to deferring her planned colonoscopy at that time. Patient does agree with proceeding with nasogastric tube at this time. NG tube placed and confirmed on follow-up x-ray. Case was discussed with Dr. Giordano [facility] hospitalist, who will evaluate the patient for admission. Further management per admitting team. Triage Nursing notes reviewed and agree them. Prior/external medical records reviewed Vital Signs: reviewed Differential diagnosis: Gastroenteritis, food borne illness, infections, appendicitis, diverticulitis, inflammatory bowel disease, obstruction, GI bleed, biliary pathology, volvulus, as well as other pathologies. ER treatment provided: See below. Diagnostics interpreted by me: ECG: Atrial paced rhythm, 84 bpm, no ectopy, no overt acute ischemia. Cardiac Monitoring: An order for continuous cardiac monitoring was placed and demonstrated atrial paced rhythm, 84 bpm, no ectopy. Laboratory studies: See below Imaging studies: See below Consultation(s): Case was discussed with Dr. Giordano [facility] hospitalist, who will evaluate the patient for admission. HPI: The patient is a pleasant 88-year-old woman with a past medical history of atrial fibrillation on Eliquis, hypertension, hyperlipidemia, diabetes, anemia with suspicion of GI bleed who presents to the emergency department via EMS from her assisted living facility at [facility] for intractable nausea and vomiting which occurred this evening after having dinner where she wondered whether or not the soup may have triggered her symptoms. She reports she had severe abdominal pain above her umbilicus that has fluctuated and correlated with vomiting episodes. She reports she did move her bowels earlier today and required some straining but not atypical for her. She reports she felt as though she could move her bowels when her pain began but was unable to. She reports the pain has dissipated since arriving to emergency department. She denies any recent fevers, chills, cough, congestion, urinary symptoms. ROS: See above HPI for pertinent positives & negatives. A total of 10 systems reviewed and were otherwise negative. VITALS:See Below PHYSICAL EXAMINATION: GENERAL: Awake, alert, fatigued-appearing, in no distress HENT: Normocephalic, atraumatic. Oropharynx with dry mucous membranes. EYES: Normal conjunctiva. Sclera non-icteric. NECK: Supple. No nuchal rigidity. FROM. No JVD. RESPIRATORY: Clear to auscultation. CARDIAC: Regular rate, normal rhythm. Extremities warm and well perfused. Pulses equal. ABDOMEN: Soft, non-distended. Mild tenderness of the mid abdomen without guarding or rebound. RECTAL: Deferred. MUSCULOSKELETAL: Chest examination reveals no tenderness. The back is symmetrical on inspection without obvious abnormality. There is no CVA tenderness to palpation. No joint edema. LOWER EXTREMITIES: Calves are equal size bilaterally and non-tender. No edema. No discoloration. NEURO: Normal sensorium. No sensory or motor deficits noted. SKIN: No rash or jaundice noted. 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 Holliday Hypertension Essential tremor Facial, hands CHF (congestive heart failure) Surgical History History of esophagogastroduodenoscopy (EGD) History of cystoscopy Cystoscopy, b/l ureteronephroscopy, laser lithotripsy (11/07/19): LMA#4 iGel, atraumatic insertion at [facility] History of cardiac cath 2011 > no stents PONV (postoperative nausea and vomiting) History of total knee replacement Right History of colonoscopy History of appendectomy Status post Mohs surgery S/P epidural steroid injection History of cardiac radiofrequency ablation S/P cardiac pacemaker procedure Hx of tonsillectomy History of hysterectomy MARC and BSO Family History Brother Family history of diabetes mellitus Brother Family history of diabetes mellitus Sister Family history of diabetes mellitus Grandmother (Paternal) Family history of diabetes mellitus Grandmother (Maternal) Breast cancer Denies family history of Ovarian cancer Colorectal cancer Social History Smoking Status: Never smoker Second Hand Exposure: No; Do You Dip or Chew Tobacco: No; Hx Alcohol Use: No Hx Substance Use: No Preferred Language: Divehi Communication Ability: Effective Visual Impairment: No Limitations Director Writing Required: No Beliefs That Will Affect Care: None marital status: / Current Living Situation: Alone Current Living Situation Comment: at the [facility] in [place] current occupational status: retired Other Information That Helps Us Care for You: No Feels Safe at Home: Yes Safety Concerns: Feels Safe At This Time Assistive Devices: Walker Allergies Allergies Allergy/AdvReac Type Severity Reaction Status Date / Time levofloxacin AdvReac Intermediate Muscle Verified 11/18/23 01:36 pain (difficulty with walking) nitrofurantoin AdvReac Intermediate headache/GI Verified 11/18/23 01:36 [From Macrobid] upset/nausea Home Meds Home Medications Medication Instructions Recorded Confirmed alprazolam 0.25 mg tablet (Xanax) 0.25 mg PO HS Anxiety 09/02/18 11/18/23 insulin glargine 100 unit/mL 16 unit subcut HS 09/02/18 11/18/23 subcutaneous solution (Lantus U-100 Insulin) metformin 500 mg tablet 500 mg PO BID 09/02/18 11/18/23 atorvastatin 20 mg tablet (Lipitor) 20 mg PO QAM 09/23/19 11/18/23 acetaminophen 500 mg tablet 1,000 mg PO Q6H PRN Pain 06/03/21 11/18/23 Estrogen Cream 1 applic vaginal . EVERY OTHER 06/09/23 11/18/23 NIGHT solifenacin 5 mg tablet (Vesicare) 5 mg PO DAILY 07/25/23 11/18/23 methimazole 5 mg tablet 5 mg PO BID 11/18/23 11/18/23 Previous Rx's Medication Instructions Recorded vibegron 75 mg tablet (Gemtesa) 75 mg PO DAILY #90 tabs 03/01/23 apixaban 5 mg tablet (Eliquis) 5 mg PO BID #60 tabs 06/20/23 losartan 25 mg tablet 25 mg PO QAM #30 tabs 06/20/23 metoprolol succinate 100 mg 100 mg PO BID #60 tabs 06/20/23 tablet,extended release 24 hr Results & Data (ED) Vital Signs Vital Signs - 24 hr 11/17/23 21:44 11/17/23 21:55 11/17/23 22:31 Temperature 36.7 C Temperature Source Oral Pulse Rate 78 72 Pulse Rate [Right Finger] 76 Respiratory Rate 18 16 Blood Pressure 192/105 H Blood Pressure [Left Arm] 168/87 H Blood Pressure Mean 134 Blood Pressure Mean [Left Arm] 114 Pulse Oximetry 94 95 Oxygen Delivery Method Room Air Room Air Sepsis Recent Fever Within 48 Hours No Sepsis New/Unexplained Change in Mental Status N/A Sepsis Action Taken by Nursing No Action Required 11/17/23 23:01 11/18/23 00:00 11/18/23 01:00 Temperature Temperature Source Pulse Rate 72 70 72 Pulse Rate [Right Finger] Respiratory Rate 22 18 14 Blood Pressure 189/98 H 165/78 H 186/81 H Blood Pressure [Left Arm] Blood Pressure Mean 122 121 116 Blood Pressure Mean [Left Arm] Pulse Oximetry 94 94 94 Oxygen Delivery Method Room Air Sepsis Recent Fever Within 48 Hours Sepsis New/Unexplained Change in Mental Status Sepsis Action Taken by Nursing 11/18/23 01:30 Temperature Temperature Source Pulse Rate 70 Pulse Rate [Right Finger] Respiratory Rate 24 Blood Pressure 155/83 H Blood Pressure [Left Arm] Blood Pressure Mean 107 Blood Pressure Mean [Left Arm] Pulse Oximetry 94 Oxygen Delivery Method Sepsis Recent Fever Within 48 Hours Sepsis New/Unexplained Change in Mental Status Sepsis Action Taken by Nursing Laboratory Data Attestation: I reviewed the patient's lab results. 11/18/23 05:35 11/18/23 05:35 Lab Results 11/17/23 11/17/23 Range/Units 21:49 23:00 WBC 8.64 (4.8-10.8) K/ul RBC 3.69 L (4.20-5.40) M/uL Hgb 10.0 L (12.0-16.0) g/dl Hct 33.0 L (37.0-47.0) % MCV 89.4 (80.0-100.0) fL MCH 27.1 (25.0-34.0) pg MCHC 30.3 L (32.0-36.0) g/dL RDW Std Deviation 66.0 H (36.4-46.3) fL RDW Coeff of Cruz 20.3 H (11.5-14.5) % Plt Count 311 (130-400) K/uL MPV 9.8 (9.4-12.4) fL Immature Gran % (Auto) 0.3 % Neut % (Auto) 86.3 % Lymph % (Auto) 9.5 % Troup % (Auto) 2.9 % Eos % (Auto) 0.8 % Baso % (Auto) 0.2 % Neut # (Auto) 7.45 H (1.40-6.50) K/uL Lymph # (Auto) 0.82 L (1.20-3.40) K/uL Troup # (Auto) 0.25 (0.11-0.59) K/uL Eos # (Auto) 0.07 (0.00-0.50) K/uL Baso # (Auto) 0.02 (0.00-0.20) K/uL Immature Gran # (Auto) 0.03 (0.01-0.20) K/uL Polychromasia 1+ Anisocytosis Present Ovalocytes 1+ Sodium 139 (136-145) mmol/L Potassium 4.3 (3.5-5.1) mmol/L Chloride 102 (98-107) mmol/L Carbon Dioxide 29 (21-32) mmol/L Anion Gap 8 (3-11) BUN 18 (6-23) mg/dl Creatinine 0.90 (0.6-1.2) mg/dl Est Cr Clr Drug Dosing 42.0 ml/min Est GFR ( Amer) 67.1 ml/min Est GFR (Non-Af Amer) 57.9 ml/min BUN/Creatinine Ratio 20.0 (10-20) Glucose 159 H (70-99(Fasting)) mg/dl Calcium 9.8 (8.6-10.3) mg/dl Total Bilirubin 0.4 (0.2-1.0) mg/dl Direct Bilirubin 0.0 (0-0.2) mg/dl AST 8 L (13-39) U/L ALT 4 L (7-52) U/L Alkaline Phosphatase 68 (34-104) U/L Troponin I High Sens 7.2 (0-14) pg/ml Total Protein 7.0 (6.0-8.3) gm/dl Albumin 3.9 (3.4-5.0) gm/dl Globulin 3.1 (2.5-4.0) gm/dl Albumin/Globulin Ratio 1.3 (0.9-2) Lipase < 3 L (11-82) U/L Urine Color Yellow Urine Appearance Clear (Clear) Urine pH 6.5 (4.5-7.5) Ur Specific Kyle 1.012 (1.000-1.030) Urine Protein Negative (Negative) Urine Glucose (UA) Negative (Negative) Urine Ketones Trace H (Negative) Urine Blood 1+ H (Negative) Urine Nitrite Negative (Negative) Urine Bilirubin Negative (Negative) Urine Urobilinogen Negative (Negative) Ur Leukocyte Esterase Trace H (Negative) Urine WBC (Auto) 10-30 H (0-5) /hpf Urine RBC (Auto) 10-30 H (0-4) /hpf U Hyaline Cast (Auto) 0 (0-5) /lpf U Epithel Cells (Auto) 10-20 H (0-5) /lpf Urine Bacteria (Auto) Negative (Negative) Adenovirus (PCR) Not Detected (NotDetected) B. pertussis DNA (PCR) Not Detected (NotDetected) B.parapertussis DNA PCR Not Detected (NotDetected) C. pneumoniae DNA (PCR) Not Detected (NotDetected) Coronavirus OC43 (PCR) Not Detected (NotDetected) Coronavirus HKU1 (PCR) Not Detected (NotDetected) Coronavirus 229E (PCR) Not Detected (NotDetected) SARS-CoV-2 (PCR) Not Detected (NotDetected) Coronavirus NL63 (PCR) Not Detected (NotDetected) Human Metapneumovir PCR Not Detected (NotDetected) Influenza Type A (PCR) Not Detected (NotDetected) Influenza Type B (PCR) Not Detected (NotDetected) M. pneumoniae (PCR) Not Detected (NotDetected) Parainfluenza 1 (PCR) Not Detected (NotDetected) Parainfluenza 2 (PCR) Not Detected (NotDetected) Parainfluenza 3 (PCR) Not Detected (NotDetected) Parainfluenza 4 (PCR) Not Detected (NotDetected) RSV (PCR) Not Detected (NotDetected) Entero/Rhino (PCR) Not Detected (NotDetected) Administered Medications Pantoprazole Sodium 40 mg/ (Syringe) 10 mls @ 5 mls/min IV DAILY@1100 [facility] Stop: 12/18/23 10:59 Last Admin: 11/18/23 11:38 Dose: 5 mls/min Documented By: ROSEANNE Potassium Chloride/Sodium Chloride (Normal Saline W/20 Meq Kcl) 20 meq in 1,000 mls @ 80 mls/hr IV .[id number] [facility] Stop: 12/18/23 02:59 Last Admin: 11/18/23 16:07 Dose: 80 mls/hr Documented By: Infusion: 11/18/23 16:07 Dose: Infused Documented By: Admin: 11/18/23 04:00 Dose: 80 mls/hr Documented By: LUIS Lorazepam 0.5 mg/ Syringe 0.5 mls @ 2 mls/min IV HS PRN PRN Reason: Insomnia Stop: 12/18/23 02:59 Last Admin: 11/18/23 04:21 Dose: 2 mls/min Documented By: LUIS Heparin Sodium/Dextrose (Heparin Sodium/Dextrose) 25,000 units in 500 mls @ 0 mls/hr IV .Q0M NATANAEL; Protocol Stop: 12/18/23 02:59 Last Titration: 11/18/23 09:53 Dose: 0 units/hr, 0 mls/hr Documented By: ROSEANNE Co-signed By: NANCY Admin: 11/18/23 04:12 Dose: 750 units/hr, 15 mls/hr Documented By: LUIS Co-signed By: MARLEY Acetaminophen (Ofirmev) 1,000 mg in 100 mls @ 400 mls/hr IV Q8H PRN; Protocol PRN Reason: pain or fever Stop: 11/21/23 03:14 Last Infusion: 11/18/23 08:57 Dose: Infused Documented By: Admin: 11/18/23 07:41 Dose: 400 mls/hr Documented By: ROSEANNE Insulin Aspart (Insulin Aspart Per Unit Charge) 0 units SC Q6 NATANAEL Stop: 12/18/23 05:59 Last Admin: 11/18/23 12:12 Dose: Not Given Documented By: Admin: 11/18/23 05:57 Dose: Not Given Documented By: LUIS Metoprolol Tartrate (Metoprolol Tartrate 1 Mg/Ml Vial) 5 mg IV Q4 NATANAEL Stop: 12/18/23 03:59 Last Admin: 11/18/23 16:07 Dose: 5 mg Documented By: Admin: 11/18/23 11:30 Dose: 5 mg Documented By: Admin: 11/18/23 08:01 Dose: 5 mg Documented By: Admin: 11/18/23 04:00 Dose: 5 mg Documented By: LUIS Ondansetron HCl (Ondansetron Inj 2 Mg/Ml 2 Ml Vial) 4 mg IV Q6H PRN PRN Reason: NAUSEA/VOMITING Stop: 12/18/23 02:59 Last Admin: 11/18/23 07:45 Dose: 4 mg Documented By: ROSEANNE Discontinued Medications Benzocaine/Butamben/Tetracaine HCl (Benzocaine/Tetracain/Butam 50 Appln/5 Gm Can) Confirm Administered Dose 50 appln EXT .STK-MED ONE Stop: 11/18/23 00:37 Last Admin: 11/18/23 00:53 Dose: 1 appln Documented By: FRANCISCO Benzocaine/Butamben/Tetracaine HCl (Benzocaine/Tetracain/Butam 50 Appln/5 Gm Can) 1 appln EXT NOW STA Stop: 11/18/23 00:38 Last Admin: 11/18/23 03:31 Dose: Not Given Documented By: LUIS Heparin Sodium/Dextrose (Heparin Iv Adult Wt-Based Low-Dose *No* Initial Bolus Protocol) 1 each IV ONE STA; Protocol Stop: 11/18/23 03:01 Last Admin: 11/18/23 04:13 Dose: 1 each Documented By: LUIS Sodium Chloride (Nss) 1,000 mls @ 999 mls/hr IV .Q1H1M ONE Stop: 11/17/23 23:10 Last Infusion: 11/17/23 23:26 Dose: Infused Documented By: Admin: 11/17/23 22:24 Dose: 999 mls/hr Documented By: DEBRA Famotidine (Pepcid 20mg Iv Push) 20 mg in 5 mls @ 2.5 mls/min IV NOW STA Stop: 11/17/23 22:11 Last Admin: 11/17/23 22:28 Dose: 2.5 mls/min Documented By: DEBRA Acetaminophen (Ofirmev) 1,000 mg in 100 mls @ 400 mls/hr IV NOW STA Stop: 11/18/23 00:03 Last Infusion: 11/18/23 00:25 Dose: Infused Documented By: Admin: 11/18/23 00:03 Dose: 400 mls/hr Documented By: DEBRA Ioversol (Optiray 320 100ml) 93 ml IV ONCE ONE Stop: 11/17/23 23:33 Last Admin: 11/17/23 23:29 Dose: 93 ml Documented By: AMANDA Lidocaine HCl (Lidocaine 2% Jelly 5 Ml Tube) 5 ml EXT NOW ONE Stop: 11/18/23 00:38 Last Admin: 11/18/23 00:53 Dose: 5 ml Documented By: FRANCISCO Ondansetron HCl (Ondansetron Inj 2 Mg/Ml 2 Ml Vial) 4 mg IV NOW STA Stop: 11/17/23 22:11 Last Admin: 11/17/23 22:28 Dose: 4 mg Documented By: DEBRA Imaging Data Radiologist's Impression: Chest X-Ray 11/18/23 01:14 XR chest 1V portable CLINICAL HISTORY: confirm NGT COMPARISON STUDY: Chest CT and chest radiograph June 12, 2023. FINDINGS: Left subclavian pacer is in place. Tip of nasogastric tube is below the lower aspect of the image but at least within the body of the stomach. Several right lung nodules are unchanged. Cardiomediastinal silhouette is stable. There is no evidence for pulmonary edema. No consolidation to suggest pneumonia. IMPRESSION: 1. No acute cardiopulmonary findings. 2. Tip of nasogastric tube below the lower aspect of image but at least within the distal body of the stomach. ACT 112: Negative or not required by law. Electronically signed by: Fernando Gabriel M.D. 11/18/2023 7:27 AM Abdomen/Pelvis CT 11/17/23 22:10 Exam(s): CT ABDOMEN + PELVIS With Contrast IV Amt: 93 ML EXAM: CT Abdomen and Pelvis With Intravenous Contrast CLINICAL HISTORY: Reason for exam: abd n/v. TECHNIQUE: Axial computed tomography images of the abdomen and pelvis with intravenous contrast. CTDI is 20.23 mGy and DLP is 926.24 mGy-cm. Automated exposure control was utilized for the study. A dose lowering technique was utilized adhering to the principles of ALARA. CONTRAST: Patient received 93 ML of IV contrast COMPARISON: 06/22/2023. FINDINGS: Lung bases: Minimal posterior subpleural atelectasis. Heart: Borderline cardiomegaly with pacemaker leads in place. ABDOMEN: Liver: 2 mm low-attenuation structure within the left liver lobe, likely cyst. Otherwise normal liver. Gallbladder and bile ducts: Tiny stones versus sludge within the gallbladder. Remainder of the gallbladder unremarkable. No ductal dilation. Pancreas: Unremarkable. No mass. No ductal dilation. Spleen: Unremarkable. No splenomegaly. Adrenals: Unremarkable. No mass. Kidneys and ureters: Multiple low-attenuation structures within the bilateral kidneys, largest on the right measuring 1.5 cm and largest on the left measuring approximately 1.6 cm compatible simple renal cyst. There is evidence of a stone within the left mid lower renal pole measuring 12.8 mm. There is a stone within the lower pole of the right kidney measuring 10.8 mm. Stomach and bowel: There are loops of small bowel distended up to 3.5 cm at the level of the pelvis concerning for small bowel obstruction. Distal to this level there is a mural expansile lesion of the lower pelvic small bowel loop with irregular enhancement of the wall and concerning for neoplasm. 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 Diverticulosis throughout the colon were so through the sigmoid with no signs of diverticulitis. PELVIS: Appendix: Nonvisualized appendix with no inflammation by the cecum to suggest appendicitis. Bladder: Unremarkable. No mass. Reproductive: Nonvisualized uterus consistent with prior hysterectomy. ABDOMEN and PELVIS: Intraperitoneal space: Trace amount of ascites surrounding the liver. No free air. Bones/joints: Diffuse osteopenia with degenerative disease of the spine, bilateral SI joints and hips. There is scoliosis of the lumbar spine with convexity to the left. No acute fracture. No dislocation. Soft tissues: Unremarkable. Vasculature: IVC filter in place. Calcified atherosclerotic disease of aorta with no aneurysm or dissection. Lymph nodes: Unremarkable. No enlarged lymph nodes. IMPRESSION: 1. 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 2. Bilateral simple renal cysts with no follow-up imaging recommended. Nonobstructing bilateral intrarenal stones as described. 3. Tiny gallstones otherwise unremarkable gallbladder and biliary system. Electronically signed by: Jennifer Patino MD 11/18/23 00:00 AM Chest X-Ray 11/18/23 01:14 XR chest 1V portable CLINICAL HISTORY: confirm NGT COMPARISON STUDY: Chest CT and chest radiograph June 12, 2023. FINDINGS: Left subclavian pacer is in place. Tip of nasogastric tube is below the lower aspect of the image but at least within the body of the stomach. Several right lung nodules are unchanged. Cardiomediastinal silhouette is stable. There is no evidence for pulmonary edema. No consolidation to suggest pneumonia. IMPRESSION: 1. No acute cardiopulmonary findings. 2. Tip of nasogastric tube below the lower aspect of image but at least within the distal body of the stomach. ACT 112: Negative or not required by law. Electronically signed by: Fernando Gabriel M.D. 11/18/2023 7:27 AM Discharge Plan Visit Data Chief Complaint: Abdominal Pain Stated Complaint: ABDOMINAL PAIN/NAUSEA/VOMITING ED Provider: Abilio Jensen Discharge Problem: SBO (small bowel obstruction), Abdominal pain, Nausea & vomiting Patient Disposition: Admitted As Inpatient Discharge Instructions Interventions: ED Discharge Assessment Last Done: 11/18/23 02:41 Discharge Problem: Abdominal pain Qualifiers: Abdominal location: periumbilical Qualified Code(s): R10.33 - Periumbilical pain Nausea & vomiting Qualifiers: Vomiting type: unspecified Qualified Code(s): R11.2 - Nausea with vomiting, unspecified
[2023-11-17] MEDS: SODIUM CHLORIDE 0.9% 1,000 ML IV ONE (22:24)
[2023-11-17 22:27] LABS: Basophils # (auto) 0.02 K/uL (0.00-0.20); Basophils % (auto) 0.2 %; Eosinophils # (auto) 0.07 K/uL (0.00-0.50); Eosinophils % (auto) 0.8 %; Immature Granulocytes # (auto) 0.03 K/uL (0.01-0.20); Immature Granulocytes % (auto) 0.3 %; Lymphocytes # (auto) 0.82 K/uL (1.20-3.40); Lymphocytes % (auto) 9.5 %; Mean Corpuscular Hemoglobin 27.1 pg (25.0-34.0); Mean Corpuscular Hgb Conc 30.3 g/dL (32.0-36.0); Mean Corpuscular Volume 89.4 fL (80.0-100.0); Mean Platelet Volume 9.8 fL (9.4-12.4); Monocytes # (auto) 0.25 K/uL (0.11-0.59); Monocytes % (auto) 2.9 %; Neutrophils # (auto) 7.45 K/uL (1.40-6.50); Neutrophils % (auto) 86.3 %; Platelet Count 311 K/uL (130-400); RDW Coefficient of Variation 20.3 % (11.5-14.5); Red Blood Count 3.69 M/uL (4.20-5.40); White Blood Count 8.64 K/ul (4.8-10.8)
[2023-11-17] MEDS: FAMOTIDINE 20MG IV PUSH 20 MG/5 ML SYR IV STA (22:28)
[2023-11-17] MEDS: ONDANSETRON INJ 2 MG/ML 2 ML VIAL IV STA (22:28)
[2023-11-17 22:44] LABS: Anion Gap 8 (3-11); Blood Urea Nitrogen 18 mg/dl (6-23); Calcium 9.8 mg/dl (8.6-10.3); Carbon Dioxide 29 mmol/L (21-32); Chloride 102 mmol/L (98-107); Est GFR (African American) 67.1 ml/min; Est GFR (Non-African American) 57.9 ml/min; Glucose 159 mg/dl (70-99(Fasting)); Potassium 4.3 mmol/L (3.5-5.1); Sodium 139 mmol/L (136-145)
[2023-11-17 22:49] LABS: Troponin I High Sensitivity 7.2 pg/ml (0-14)
[2023-11-17 22:50] LABS: Anisocytosis Present; Ovalocytes 1+; Polychromasia 1+
[2023-11-17 23:01] LABS: Alanine Aminotransferase 4 U/L (7-52); Albumin Globulin Ratio 1.3 (0.9-2); Albumin Level 3.9 gm/dl (3.4-5.0); Alkaline Phosphatase 68 U/L (34-104); Aspartate Aminotransferase 8 U/L (13-39); Bilirubin,Total 0.4 mg/dl (0.2-1.0); Globulin 3.1 gm/dl (2.5-4.0); Lipase < 3 U/L (11-82)
[2023-11-17 23:28] LABS: Appearance Urine Clear (Clear); Bacteria Urine Automated Negative (Negative); Bilirubin Urine Negative (Negative); Blood Urine 1+ (Negative); Cast Urine Automated 0 /lpf (0-5); Color Urine Yellow; Glucose Urine UA Negative (Negative); Ketones Urine Trace (Negative); Leukocyte Esterase Urine Trace (Negative); Nitrite Urine Negative (Negative); Protein Urine Negative (Negative); Specific Gravity Urine 1.012 (1.000-1.030); Urobilinogen Urine Negative (Negative); pH Urine 6.5 (4.5-7.5)
[2023-11-17] MEDS: OPTIRAY 320 100ml IV ONE (23:29)
--- NOTE | 2023-11-18 00:01 | CT Scan Report ---
Exam(s): CT ABDOMEN + PELVIS With Contrast IV Amt: 93 ML EXAM: CT Abdomen and Pelvis With Intravenous Contrast CLINICAL HISTORY: Reason for exam: abd n/v. TECHNIQUE: Axial computed tomography images of the abdomen and pelvis with intravenous contrast. CTDI is 20.23 mGy and DLP is 926.24 mGy-cm. Automated exposure control was utilized for the study. A dose lowering technique was utilized adhering to the principles of ALARA. CONTRAST: Patient received 93 ML of IV contrast COMPARISON: 06/22/2023. FINDINGS: Lung bases: Minimal posterior subpleural atelectasis. Heart: Borderline cardiomegaly with pacemaker leads in place. ABDOMEN: Liver: 2 mm low-attenuation structure within the left liver lobe, likely cyst. Otherwise normal liver. Gallbladder and bile ducts: Tiny stones versus sludge within the gallbladder. Remainder of the gallbladder unremarkable. No ductal dilation. Pancreas: Unremarkable. No mass. No ductal dilation. Spleen: Unremarkable. No splenomegaly. Adrenals: Unremarkable. No mass. Kidneys and ureters: Multiple low-attenuation structures within the bilateral kidneys, largest on the right measuring 1.5 cm and largest on the left measuring approximately 1.6 cm compatible simple renal cyst. There is evidence of a stone within the left mid lower renal pole measuring 12.8 mm. There is a stone within the lower pole of the right kidney measuring 10.8 mm. Stomach and bowel: There are loops of small bowel distended up to 3.5 cm at the level of the pelvis concerning for small bowel obstruction. Distal to this level there is a mural expansile lesion of the lower pelvic small bowel loop with irregular enhancement of the wall and concerning for neoplasm. 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 Diverticulosis throughout the colon were so through the sigmoid with no signs of diverticulitis. PELVIS: Appendix: Nonvisualized appendix with no inflammation by the cecum to suggest appendicitis. Bladder: Unremarkable. No mass. Reproductive: Nonvisualized uterus consistent with prior hysterectomy. ABDOMEN and PELVIS: Intraperitoneal space: Trace amount of ascites surrounding the liver. No free air. Bones/joints: Diffuse osteopenia with degenerative disease of the spine, bilateral SI joints and hips. There is scoliosis of the lumbar spine with convexity to the left. No acute fracture. No dislocation. Soft tissues: Unremarkable. Vasculature: IVC filter in place. Calcified atherosclerotic disease of aorta with no aneurysm or dissection. Lymph nodes: Unremarkable. No enlarged lymph nodes. IMPRESSION: 1. 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 2. Bilateral simple renal cysts with no follow-up imaging recommended. Nonobstructing bilateral intrarenal stones as described. 3. Tiny gallstones otherwise unremarkable gallbladder and biliary system. Electronically signed by: Jennifer Patino MD 11/18/23 00:00 AM
[2023-11-18] MEDS: ACETAMINOPHEN 1,000 MG/100 ML VIAL IV STA (00:03)
[2023-11-18 00:29] LABS: Adenovirus PCR Not Detected (NotDetected); Bordetella parapertussis PCR Not Detected (NotDetected); Bordetella pertussis PCR Not Detected (NotDetected); Chlamydia pneumoniae PCR Not Detected (NotDetected); Coronavirus 229E PCR Not Detected (NotDetected); Coronavirus CoV-2 (COVID19)PCR Not Detected (NotDetected); Coronavirus HKU1 PCR Not Detected (NotDetected); Coronavirus NL63 PCR Not Detected (NotDetected); Coronavirus OC43PCR Not Detected (NotDetected); Human Metapneumovirus PCR Not Detected (NotDetected); Influenza A PCR Not Detected (NotDetected); Influenza B PCR Not Detected (NotDetected); Mycoplasma pneumoniae PCR Not Detected (NotDetected); Parainfluenza Virus 1 PCR Not Detected (NotDetected); Parainfluenza Virus 2 PCR Not Detected (NotDetected); Parainfluenza Virus 3 PCR Not Detected (NotDetected); Parainfluenza Virus 4 PCR Not Detected (NotDetected); Respiratory Syncytial VirusPCR Not Detected (NotDetected); Rhinovirus/Enterovirus PCR Not Detected (NotDetected)
[2023-11-18] MEDS: BENZOCAINE/TETRACAIN/BUTAM 50 APPLN/5 GM CAN EXT ONE (00:53)
[2023-11-18] MEDS: LIDOCAINE 2% JELLY 5 ML TUBE EXT ONE (00:53)
--- NOTE | 2023-11-18 01:49 | History & Physical Report ---
Date of Service November 18, 2023 Assessment & Plan (1) SBO (small bowel obstruction): (2) Colonic mass: (3) Pacemaker: (4) Paroxysmal atrial fibrillation: (5) Hypertension: (6) Diabetes mellitus, type 2: (7) Hyperthyroidism: Plan Small bowel obstruction- Transition point in the lower pelvis associated with a mural neoplasm, possibly consistent with lymphoma Continue NG tube placed in ED, and had to low intermittent suction NPO Pantoprazole 40 mg IV daily Zofran 4 mg IV every 6 hours as needed Acetaminophen 1 g IV every 8 hours as needed for mild pain or fever Status post 1 L normal saline in ED Placed on NSS + KCl 20 mill equivalents at 80 mL/h Patient and daughter report that they would not likely want to undergo any significant surgery Colonic mass/mural neoplasm- Consult oncology Dr. Marko Calloway Paroxysmal atrial fibrillation/hypertension- Admit to telemetry to be able to give Lopressor IV Hold metoprolol succinate 100 mg p.o. twice daily, and instead placed on Lopressor 5 mg IV every 4 hours, holding for systolic blood pressure less than 120 Hold losartan Hold Eliquis, and instead placed on heparin IV low-dose without bolus per protocol Insomnia- Holding oral alprazolam, and instead placed on lorazepam 0.5 mg IV at bedtime as needed Hyperthyroidism- For now have to hold methimazole, but should be restarted as soon as possible History of Present Illness Chief Complaint: The patient presents to the emergency department with the acute onset of severe abdominal pain with intractable nausea and vomiting at the [facility], after eating sausage soup Primary Care Provider: EMILY Blount The patient is an 88-year-old female with a past medical history including pacemaker, paroxysmal atrial fibrillation, aspiration pneumonitis, urinary tract infection, GI bleed, vulvar lesion, mixed urge and stress urinary incontinence, PE, DVT, diastolic heart failure, recurrent UTI. The patient reports that she had been doing well, until she ate sausage soup at the [facility] for dinner this evening, and shortly thereafter developed severe abdominal pain with intractable nausea and vomiting. Due to the symptoms, she presented to the ED for assessment. CT scan of abdomen and pelvis revealed a small bowel obstruction, with transition point in the lower pelvis, associated with a mural lesion suggestive of neoplasm, possibly consistent with lymphoma. Patient did have NG tube placed in the emergency department, with improvement in symptoms. She was then presented to the hospitalist service for admission Allergies Allergy/AdvReac Type Severity Reaction Status Date / Time levofloxacin AdvReac Intermediate Muscle Verified 11/18/23 01:36 pain (difficulty with walking) nitrofurantoin AdvReac Intermediate headache/GI Verified 11/18/23 01:36 [From Macrobid] upset/nausea Home Medications Medication Instructions Recorded Confirmed Type alprazolam 0.25 mg tablet (Xanax) 0.25 mg PO HS Anxiety 09/02/18 11/18/23 History insulin glargine 100 unit/mL 16 unit subcut HS 09/02/18 11/18/23 History subcutaneous solution (Lantus U-100 Insulin) metformin 500 mg tablet 500 mg PO BID 09/02/18 11/18/23 History atorvastatin 20 mg tablet (Lipitor) 20 mg PO QAM 09/23/19 11/18/23 History acetaminophen 500 mg tablet 1,000 mg PO Q6H PRN Pain 06/03/21 11/18/23 History vibegron 75 mg tablet (Gemtesa) 75 mg PO DAILY #90 tabs 03/01/23 11/18/23 Rx Estrogen Cream 1 applic vaginal . EVERY OTHER 06/09/23 11/18/23 History NIGHT apixaban 5 mg tablet (Eliquis) 5 mg PO BID #60 tabs 06/20/23 11/18/23 Rx losartan 25 mg tablet 25 mg PO QAM #30 tabs 06/20/23 11/18/23 Rx metoprolol succinate 100 mg 100 mg PO BID #60 tabs 06/20/23 11/18/23 Rx tablet,extended release 24 hr solifenacin 5 mg tablet (Vesicare) 5 mg PO DAILY 07/25/23 11/18/23 History methimazole 5 mg tablet 5 mg PO BID 11/18/23 11/18/23 History Past Med/Surg History Medical History (Updated 11/18/23 @ 04:54 by Grant Giordano MD) Aspiration pneumonitis Acute respiratory failure with hypoxia Hypertensive urgency Pulmonary edema Acute bronchospasm Anemia Blood transfusions several years ago (r/t DVTs/acute blood loss) Presence of IVC filter Chronic back pain Osteoarthritis Kidney stones Pancreatitis Remote hx Diabetes mellitus, type 2 IDDM Hyperthyroidism on Methimazole/managed by PCP Depression Anxiety BCC (basal cell carcinoma) Hyperlipidemia Pacemaker Implanted 2011, 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 Holliday Hypertension Essential tremor Facial, hands CHF (congestive heart failure) Surgical History (Updated 07/21/23 @ 00:10 by Background Dalenaon) History of esophagogastroduodenoscopy (EGD) History of cystoscopy Cystoscopy, b/l ureteronephroscopy, laser lithotripsy (11/07/19): LMA#4 iGel, atraumatic insertion at [facility] History of cardiac cath 2011 > no stents PONV (postoperative nausea and vomiting) History of total knee replacement Right History of colonoscopy History of appendectomy Status post Mohs surgery S/P epidural steroid injection History of cardiac radiofrequency ablation S/P cardiac pacemaker procedure Hx of tonsillectomy History of hysterectomy MARC and BSO Family History Brother Family history of diabetes mellitus Brother Family history of diabetes mellitus Sister Family history of diabetes mellitus Grandmother (Paternal) Family history of diabetes mellitus Grandmother (Maternal) Breast cancer Denies family history of Ovarian cancer Colorectal cancer Social History Smoking Status: Never smoker Second Hand Exposure: No; Do You Dip or Chew Tobacco: No; Hx Alcohol Use: No Hx Substance Use: No Preferred Language: Brazilian Communication Ability: Effective Visual Impairment: No Limitations Manager Shift Required: No Beliefs That Will Affect Care: None marital status: / Current Living Situation: Alone Current Living Situation Comment: at the [facility] in [place] current occupational status: retired Feels Safe at Home: Yes Assistive Devices: Walker Review of Systems Review of Systems: The patient denies chest pain, palpitations, shortness of breath, dyspnea on exertion, cough, lower extremity swelling, sore throat, fevers, chills, sweats, blood in urine or stool, dysuria, urinary frequency or urgency, lightheadedness, dizziness, headache, memory loss, loss of consciousness, rash, abnormal bruising or bleeding, imbalance, focal or generalized weakness, numbness or tingling in arms or legs, generalized arthralgias or myalgias, back or neck pain, or night sweats. The review of systems is otherwise negative other than for that already noted above, and at least 10 systems have been reviewed. Physical Exam Physical Exam: The patient is awake, alert and oriented 3, well developed and well nourished, normocephalic and atraumatic, lying in bed and in no acute distress. HEENT--PERRL, EOMI, mucous membranes and oropharynx mildly dry. Neck--supple. No JVD. No bruits. Thyroid normal, trachea midline, no adenopathy. Heart--normal S1 and S2. No murmurs, rubs or gallops. Lungs--clear bilaterally, no respiratory distress, no accessory muscle use. Abdomen--normal bowel sounds and soft. Generalized tenderness lower quadrants Extremities-- No edema. Dermatologic--normal skin turgor, normal color, no abnormal lymph nodes, no rash. Neurologic--cranial nerves II through XII grossly intact. Rheumatologic--normal range of motion. Psychiatric--normal affect. Results & Data Results & Data Vital Signs (Past 12 Hours) Vital Signs Temp Pulse Pulse Resp BP BP Pulse Ox 11/18/23 01:00 72 14 186/81 H 94 11/18/23 00:00 70 18 165/78 H 94 11/17/23 23:01 72 22 189/98 H 94 11/17/23 22:31 76 16 168/87 H 95 11/17/23 21:55 72 11/17/23 21:44 36.7 C 78 18 192/105 H 94 O2 Del Method 11/18/23 01:00 11/18/23 00:00 Room Air 11/17/23 23:01 11/17/23 22:31 Room Air 11/17/23 21:55 11/17/23 21:44 Room Air Laboratory Results Laboratory Results WBC 8.64 K/ul (4.8-10.8) 11/17/23 21:49 RBC 3.69 M/uL (4.20-5.40) L 11/17/23 21:49 Hgb 10.0 g/dl (12.0-16.0) L 11/17/23 21:49 Hct 33.0 % (37.0-47.0) L 11/17/23 21:49 MCV 89.4 fL (80.0-100.0) 11/17/23 21:49 MCH 27.1 pg (25.0-34.0) 11/17/23 21:49 MCHC 30.3 g/dL (32.0-36.0) L 11/17/23 21:49 RDW Std Deviation 66.0 fL (36.4-46.3) H 11/17/23 21:49 RDW Coeff of Cruz 20.3 % (11.5-14.5) H 11/17/23 21:49 Plt Count 311 K/uL (130-400) 11/17/23 21:49 MPV 9.8 fL (9.4-12.4) 11/17/23 21:49 Immature Gran % (Auto) 0.3 % 11/17/23 21:49 Neut % (Auto) 86.3 % 11/17/23 21:49 Lymph % (Auto) 9.5 % 11/17/23 21:49 Archer % (Auto) 2.9 % 11/17/23 21:49 Eos % (Auto) 0.8 % 11/17/23 21:49 Baso % (Auto) 0.2 % 11/17/23 21:49 Neut # (Auto) 7.45 K/uL (1.40-6.50) H 11/17/23 21:49 Lymph # (Auto) 0.82 K/uL (1.20-3.40) L 11/17/23 21:49 Archer # (Auto) 0.25 K/uL (0.11-0.59) 11/17/23 21:49 Eos # (Auto) 0.07 K/uL (0.00-0.50) 11/17/23 21:49 Baso # (Auto) 0.02 K/uL (0.00-0.20) 11/17/23 21:49 Immature Gran # (Auto) 0.03 K/uL (0.01-0.20) 11/17/23 21:49 Polychromasia 1+ 11/17/23 21:49 Anisocytosis Present 11/17/23 21:49 Ovalocytes 1+ 11/17/23 21:49 Sodium 139 mmol/L (136-145) 11/17/23 21:49 Potassium 4.3 mmol/L (3.5-5.1) 11/17/23 21:49 Chloride 102 mmol/L (98-107) 11/17/23 21:49 Carbon Dioxide 29 mmol/L (21-32) 11/17/23 21:49 Anion Gap 8 (3-11) 11/17/23 21:49 BUN 18 mg/dl (6-23) 11/17/23 21:49 Creatinine 0.90 mg/dl (0.6-1.2) 11/17/23 21:49 Est Cr Clr Drug Dosing 42.0 ml/min 11/17/23 21:49 Est GFR ( Amer) 67.1 ml/min 11/17/23 21:49 Est GFR (Non-Af Amer) 57.9 ml/min 11/17/23 21:49 BUN/Creatinine Ratio 20.0 (10-20) 11/17/23 21:49 Glucose 159 mg/dl (70-99(Fasting)) H 11/17/23 21:49 Calcium 9.8 mg/dl (8.6-10.3) 11/17/23 21:49 Total Bilirubin 0.4 mg/dl (0.2-1.0) 11/17/23 21:49 Direct Bilirubin 0.0 mg/dl (0-0.2) 11/17/23 21:49 AST 8 U/L (13-39) L 11/17/23 21:49 ALT 4 U/L (7-52) L 11/17/23 21:49 Alkaline Phosphatase 68 U/L (34-104) 11/17/23 21:49 Troponin I High Sens 7.2 pg/ml (0-14) 11/17/23 21:49 Total Protein 7.0 gm/dl (6.0-8.3) 11/17/23 21:49 Albumin 3.9 gm/dl (3.4-5.0) 11/17/23 21:49 Globulin 3.1 gm/dl (2.5-4.0) 11/17/23 21:49 Albumin/Globulin Ratio 1.3 (0.9-2) 11/17/23 21:49 Lipase < 3 U/L (11-82) L 11/17/23 21:49 Urine Color Yellow 11/17/23 23:00 Urine Appearance Clear (Clear) 11/17/23 23:00 Urine pH 6.5 (4.5-7.5) 11/17/23 23:00 Ur Specific [place] 1.012 (1.000-1.030) 11/17/23 23:00 Urine Protein Negative (Negative) 11/17/23 23:00 Urine Glucose (UA) Negative (Negative) 11/17/23 23:00 Urine Ketones Trace (Negative) H 11/17/23 23:00 Urine Blood 1+ (Negative) H 11/17/23 23:00 Urine Nitrite Negative (Negative) 11/17/23 23:00 Urine Bilirubin Negative (Negative) 11/17/23 23:00 Urine Urobilinogen Negative (Negative) 11/17/23 23:00 Ur Leukocyte Esterase Trace (Negative) H 11/17/23 23:00 Urine WBC (Auto) 10-30 /hpf (0-5) H 11/17/23 23:00 Urine RBC (Auto) 10-30 /hpf (0-4) H 11/17/23 23:00 U Hyaline Cast (Auto) 0 /lpf (0-5) 11/17/23 23:00 U Epithel Cells (Auto) 10-20 /lpf (0-5) H 11/17/23 23:00 Urine Bacteria (Auto) Negative (Negative) 11/17/23 23:00 Adenovirus (PCR) Not Detected (NotDetected) 11/17/23 23:00 B. pertussis DNA (PCR) Not Detected (NotDetected) 11/17/23 23:00 B.parapertussis DNA PCR Not Detected (NotDetected) 11/17/23 23:00 C. pneumoniae DNA (PCR) Not Detected (NotDetected) 11/17/23 23:00 Coronavirus OC43 (PCR) Not Detected (NotDetected) 11/17/23 23:00 Coronavirus HKU1 (PCR) Not Detected (NotDetected) 11/17/23 23:00 Coronavirus 229E (PCR) Not Detected (NotDetected) 11/17/23 23:00 SARS-CoV-2 (PCR) Not Detected (NotDetected) 11/17/23 23:00 Coronavirus NL63 (PCR) Not Detected (NotDetected) 11/17/23 23:00 Human Metapneumovir PCR Not Detected (NotDetected) 11/17/23 23:00 Influenza Type A (PCR) Not Detected (NotDetected) 11/17/23 23:00 Influenza Type B (PCR) Not Detected (NotDetected) 11/17/23 23:00 M. pneumoniae (PCR) Not Detected (NotDetected) 11/17/23 23:00 Parainfluenza 1 (PCR) Not Detected (NotDetected) 11/17/23 23:00 Parainfluenza 2 (PCR) Not Detected (NotDetected) 11/17/23 23:00 Parainfluenza 3 (PCR) Not Detected (NotDetected) 11/17/23 23:00 Parainfluenza 4 (PCR) Not Detected (NotDetected) 11/17/23 23:00 RSV (PCR) Not Detected (NotDetected) 11/17/23 23:00 Entero/Rhino (PCR) Not Detected (NotDetected) 11/17/23 23:00 Impressions Abdomen/Pelvis CT 11/17/23 22:10 Exam(s): CT ABDOMEN + PELVIS With Contrast IV Amt: 93 ML EXAM: CT Abdomen and Pelvis With Intravenous Contrast CLINICAL HISTORY: Reason for exam: abd n/v. TECHNIQUE: Axial computed tomography images of the abdomen and pelvis with intravenous contrast. CTDI is 20.23 mGy and DLP is 926.24 mGy-cm. Automated exposure control was utilized for the study. A dose lowering technique was utilized adhering to the principles of ALARA. CONTRAST: Patient received 93 ML of IV contrast COMPARISON: 06/22/2023. FINDINGS: Lung bases: Minimal posterior subpleural atelectasis. Heart: Borderline cardiomegaly with pacemaker leads in place. ABDOMEN: Liver: 2 mm low-attenuation structure within the left liver lobe, likely cyst. Otherwise normal liver. Gallbladder and bile ducts: Tiny stones versus sludge within the gallbladder. Remainder of the gallbladder unremarkable. No ductal dilation. Pancreas: Unremarkable. No mass. No ductal dilation. Spleen: Unremarkable. No splenomegaly. Adrenals: Unremarkable. No mass. Kidneys and ureters: Multiple low-attenuation structures within the bilateral kidneys, largest on the right measuring 1.5 cm and largest on the left measuring approximately 1.6 cm compatible simple renal cyst. There is evidence of a stone within the left mid lower renal pole measuring 12.8 mm. There is a stone within the lower pole of the right kidney measuring 10.8 mm. Stomach and bowel: There are loops of small bowel distended up to 3.5 cm at the level of the pelvis concerning for small bowel obstruction. Distal to this level there is a mural expansile lesion of the lower pelvic small bowel loop with irregular enhancement of the wall and concerning for neoplasm. 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 Diverticulosis throughout the colon were so through the sigmoid with no signs of diverticulitis. PELVIS: Appendix: Nonvisualized appendix with no inflammation by the cecum to suggest appendicitis. Bladder: Unremarkable. No mass. Reproductive: Nonvisualized uterus consistent with prior hysterectomy. ABDOMEN and PELVIS: Intraperitoneal space: Trace amount of ascites surrounding the liver. No free air. Bones/joints: Diffuse osteopenia with degenerative disease of the spine, bilateral SI joints and hips. There is scoliosis of the lumbar spine with convexity to the left. No acute fracture. No dislocation. Soft tissues: Unremarkable. Vasculature: IVC filter in place. Calcified atherosclerotic disease of aorta with no aneurysm or dissection. Lymph nodes: Unremarkable. No enlarged lymph nodes. IMPRESSION: 1. 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 2. Bilateral simple renal cysts with no follow-up imaging recommended. Nonobstructing bilateral intrarenal stones as described. 3. Tiny gallstones otherwise unremarkable gallbladder and biliary system. Electronically signed by: Jennifer Patino MD 11/18/23 00:00 AM Code Status & VTE Plan Code Status Full code VTE Prophylaxis Plan VTE Prophylaxis will be ordered: Yes PG Care Time/CCT Total # of Minutes Spent Total Time Spent with Patient: Total time spent is greater than 50% in coordination of care (as documented) at patient's floor/unit and/or counseling patient: Coding Level of Care Code 75898 INT INP/OBS CARE 3/75MIN Diagnoses SBO (small bowel obstruction) K56.609 Colonic mass K63.89 Pacemaker Z95.0 Paroxysmal atrial fibrillation I48.0 Hypertension I10 Diabetes mellitus, type 2 E11.9 Hyperthyroidism E05.90
[2023-11-18] MEDS ORDERED: GLUCAGON FOR INJ 1 MG VIAL SQ PRN (03:00)
[2023-11-18] MEDS ORDERED: GLUCOSE 40% GEL 15 GM TUBE PO PRN (03:00)
[2023-11-18] MEDS ORDERED: CARBOHYDRATES FOR HYPOGLYCEMIA PO PRN (03:00)
[2023-11-18] MEDS ORDERED: GLUCOSE 10 TAB/TUBE PO PRN (03:00)
[2023-11-18] MEDS ORDERED: DEXTROSE 50% 50 ML SYRINGE IV PRN (03:00)
[2023-11-18] MEDS ORDERED: ACETAMINOPHEN 1000 MG/100 ML IV IV PRN (03:00)
[2023-11-18] MEDS: BENZOCAINE/TETRACAIN/BUTAM 50 APPLN/5 GM CAN EXT STA (03:31)
[2023-11-18] MEDS: METOPROLOL TARTRATE 1 MG/ML VIAL IV SCH (04:00)
[2023-11-18] MEDS: NSS + 20MEQ KCL 20 MEQ/1,000 ML BAG IV SCH (04:00)
[2023-11-18] MEDS: HEPARIN SODIUM/DEXTROSE 25,000 UNITS/500 ML BAG IV SCH (04:12)
[2023-11-18] MEDS: Heparin IV Adult Wt-Based Low-Dose *NO* INITIAL Bolus Protocol IV STA (04:13)
[2023-11-18] MEDS: LORazepam 0.5 MG in SYRINGE 0.25 ML IV PRN (04:21)
[2023-11-18] MEDS: INSULIN ASPART PER UNIT CHARGE SC SCH (05:57)
[2023-11-18 06:08] LABS: Albumin Level 3.4 gm/dl (3.4-5.0); BUN Creatinine Ratio 18.9 (10-20); Calcium 8.7 mg/dl (8.6-10.3); Est GFR (African American) 67.1 ml/min; Est GFR (Non-African American) 57.9 ml/min; Magnesium 1.5 mg/dl (1.7-2.4); Phosphorus 3.2 mg/dl (2.5-4.9); Potassium 4.2 mmol/L (3.5-5.1)
[2023-11-18 06:35] LABS: Anisocytosis Present; Basophils # (auto) 0.02 K/uL (0.00-0.20); Basophils % (auto) 0.3 %; Eosinophils # (auto) 0.05 K/uL (0.00-0.50); Eosinophils % (auto) 0.7 %; Hemoglobin 8.9 g/dl (12.0-16.0); Hypochromasia Present; Immature Granulocytes # (auto) 0.04 K/uL (0.01-0.20); Immature Granulocytes % (auto) 0.6 %; Lymphocytes # (auto) 1.46 K/uL (1.20-3.40); Lymphocytes % (auto) 20.5 %; Mean Corpuscular Hemoglobin 26.3 pg (25.0-34.0); Mean Corpuscular Hgb Conc 28.7 g/dL (32.0-36.0); Mean Corpuscular Volume 91.7 fL (80.0-100.0); Mean Platelet Volume 9.2 fL (9.4-12.4); Monocytes # (auto) 0.51 K/uL (0.11-0.59); Monocytes % (auto) 7.2 %; Neutrophils # (auto) 5.04 K/uL (1.40-6.50); Neutrophils % (auto) 70.7 %; Ovalocytes 1+; Platelet Count 268 K/uL (130-400); Polychromasia 1+; RDW Coefficient of Variation 20.2 % (11.5-14.5); RDW Standard Deviation 66.6 fL (36.4-46.3); Red Blood Count 3.38 M/uL (4.20-5.40); White Blood Count 7.12 K/ul (4.8-10.8)
--- NOTE | 2023-11-18 07:29 | XRay Report ---
XR chest 1V portable CLINICAL HISTORY: confirm NGT COMPARISON STUDY: Chest CT and chest radiograph June 12, 2023. FINDINGS: Left subclavian pacer is in place. Tip of nasogastric tube is below the lower aspect of the image but at least within the body of the stomach. Several right lung nodules are unchanged. Cardiom ediastinal silhouette is stable. There is no evidence for pulmonary edema. No consolidation to sugges t pneumonia. IMPRESSION: 1. No acute cardiopulmonary findings. 2. Tip of nasogastric tube below the lower aspect of image but at least within the distal body of the stomach. ACT 112: Negative or not required by law. Electronically signed by: Fernando Gabriel M.D. 11/18/2023 7:27 AM
[2023-11-18 07:41] LABS: INR 1.2 (0.9-1.1); Partial Thromboplastin Ratio 1.5; Partial Thromboplastin Time 41 Seconds (21-31); Prothrombin Time 13.3 Seconds (9.0-12.0)
[2023-11-18] MEDS: ACETAMINOPHEN 1,000 MG/100 ML VIAL IV PRN (07:41)
[2023-11-18] MEDS: ONDANSETRON INJ 2 MG/ML 2 ML VIAL IV PRN (07:45)
[2023-11-18 07:49] LABS: ANTI-Xa, UFH(UnfractionatedHep > 1.50 IU/ml (0.3-0.7)
--- NOTE | 2023-11-18 07:52 | XRay Report ---
KUB CLINICAL HISTORY: confirm ng placement COMPARISON STUDY: CT of the abdomen and pelvis November 17, 2023. FINDINGS: The tip of the nasogastric tube is within the distal body of the stomach. IVC filter and le ft subclavian pacer are incidentally noted. Contrast within the renal collecting systems is from rece nt contrast-enhanced CT. IMPRESSION: Appropriately positioned nasogastric tube. Tip within the distal body of the stomach. ACT 112: Negative or not required by law. Electronically signed by: Fernando Gabriel M.D. 11/18/2023 7:50 AM
[2023-11-18 08:17] LABS: Estimated Average Glucose 117 mg/dl; Hemoglobin A1C 5.7 % (4.5-5.6)
--- NOTE | 2023-11-18 08:53 | Electrocardiogram Report ---
Test Reason : Blood Pressure : / mmHG Vent. Rate : 084 BPM Atrial Rate : 084 BPM P-R Int : 092 ms QRS Dur : 076 ms QT Int : 376 ms P-R-T Axes : 022 008 052 degrees QTc Int : 444 ms Atrial-paced rhythm Abnormal ECG When compared with ECG of 18-JUN-2023 05:09, Electronic atrial pacemaker has replaced Electronic ventricular pacemaker Confirmed by Ismael Dill ([id number]) on 11/18/2023 8:53:25 AM Referred By: REFERRED SELF Confirmed By:Ismael Dill
[2023-11-18 09:49] LABS: ANTI-Xa, UFH(UnfractionatedHep > 1.50 IU/ml (0.3-0.7)
[2023-11-18 10:46] LABS: ANTI-Xa, UFH(UnfractionatedHep > 1.50 IU/ml (0.3-0.7)
--- OUTSIDE RECORDS SUMMARY | 2023-11-18 11:37 | External Medical Summary | Summary of Care ---
Author Name Unknown Organization [facility] Address [address] [place] [address] Phone [phone] Care Team Providers Care Laborer High Density Press Name Role Phone Avelina DouglasNP Primary Care Provider Reason for Visit * Reason Onset Date Comments Medication Refill 11/17/2023 Encounter Details Date Type Department Care Team (Late st Contact Info) Description 11/17/[address] [facility] [address] [place] [address] Andrae Joaquin MD [address] [facility] [address] Medication Refill Allergies Active Allergy Reactions Criticality Noted Date Comments Levofloxacin Other (Please comment) 05/26/2017 Cramping pains Nitrofurantoin Nausea/vomiting,Othe r (Please comment) 08/26/2022 Dizziness Propofol Nausea/vomiting 01/03/2018 documented as of this encounter (statuses as of 11/17/2023) Medications Medication Sig Dispensed Refills Start Date End Date Status acetaminophen (TYLENOL) 500 MG Tablet Take 1 Tablet by mouth every 6 hours as needed for Pain. 0 Active Dextrose, Diabetic Use, (GLUCOSE) 15 GM/33GM GEL Take by mouth. 0 Active atorvaSTATin (LIPITOR) 20 MG Tablet Take 1 Tablet by mouth in the morning. 30 Tab 5 10/03/2017 Active insulin aspart (INSULIN ASPART) 100 UNIT/ML injectionIndicatio ns:Diabetes mellitus type 2, insulin dependent (HCC) Inject under skin per sliding scale 2 Vial 5 10/12/2017 Active apixaban (ELIQUIS) 5 MG TabletIndications: Chronic atrial fibrillation (HCC),Other acute pulmonary embolism without acute cor pulmonale (HCC) Take 1 Tab by mouth 2 times a day. 60 Tab 5 10/31/2017 Active LANTUS SOLOSTAR 100 UNIT/ML SOPNIndications:Di abetes mellitus type 2, insulin dependent (HCC) Inject 16 Units under the skin in the morning. 1 Pre-filled Pen Syringe Dosing Unit 5 12/13/2017 Active metFORMIN ER (GLUCOPHAGE XR) 500 MG [id number]:Di abetes mellitus type 2, insulin dependent (HCC) Take 2 Tabs by mouth daily. 60 Tab 11 12/13/2017 Active Additional Information Patient taking differently: 500 mgOralBID (.AM/PM), Reported on 08/26/2022 loperamide (IMODIUM) 2 MG CapsuleIndications :Diarrhea, unspecified type Take 1 Cap by mouth 4 times a day as needed for Diarrhea. 30 Cap 4 01/15/2018 Active Additional Information Patient not taking.Reported on 07/17/2023 ALPRAZolam (XANAX) 0.25 MG Tablet One pill at bedtime for anxiety 30 Tab 0 04/03/2018 Active methimazole (TAPAZOLE) 5 MG Tablet Take 2 Tablets by mouth once a day on Monday, Monday, Monday, and only. 0 03/08/2019 Active Loratadine 10 MG Oral Tablet (Claritin) Take 1 Tablet by mouth in the morning. 0 Active Escitalopram Oxalate 20 MG Oral Tablet (Lexapro) Take 1 Tablet by mouth in the morning. 0 12/10/2021 Active hydroCHLOROthiazid e 25 MG Oral Tablet (Hydrodiuril) Take one tablet 2-3 days per week for edema, HTN 36 Tablet 3 02/01/2022 Active Ondansetron HCl 4 MG Oral Tablet (Zofran) Take 1 Tablet by mouth as needed. 0 08/05/2022 Active Solifenacin Succinate 5 MG Oral Tablet (VESIcare) Take 1 Tablet by mouth in the morning. 90 Tablet 3 01/13/2023 Active Losartan Potassium 25 MG Oral Tablet (Cozaar)Indication s:Paroxysmal atrial fibrillation (HCC),Essential hypertension TAKE 1 TABLET BY MOUTH DAILY 90 Tablet 3 05/02/2023 Active Gemtesa 75 MG Oral Tablet Take 1 Tablet by mouth in the morning. 90 Tablet 3 04/28/2023 Active Iron-Vitamin C 65-125 MG Oral Tablet (Vitron C)Indications:Anem ia, unspecified type TAKE 1 TABLET BY MOUTH ONCE DAILY 90 Tablet 3 07/04/2023 Active Metoprolol Succinate ER 100 MG Oral Tablet Extended Release 24 Hour (toPROL XL) Take 1 Tablet by mouth in the morning and 1 Tablet before bedtime. 180 Tablet 3 07/17/2023 Active Fluconazole 150 MG Oral Tablet (Diflucan) Take 1 Tablet by mouth once a week. 4 Tablet 0 09/15/2023 Active Additional Information Patient not taking.Reported on 10/09/2023 Estradiol 0.1 MG/GM Vaginal Cream (Estrace) Apply pea sized amount (0.5 mg) vaginally every other night at bedtime 42.5 g 3 10/09/2023 Active documented as of this encounter (statuses as of 11/17/2023) Active Problems Problem Noted Date Diagnosed Date Iron deficiency anemia due to chronic blood loss 10/20/2023 Hyperthyroidism 06/02/2021 Hematoma of right iliopsoas muscle 09/20/2017 Atrial fibrillation 08/27/2017 Deep venous thrombosis 08/27/2017 Diabetes mellitus type 2, insulin dependent 07/30 Dyslipidemia 08/27/2017 Essential tremor 08/27/2017 Hypertension 08/27/2017 Osteoporosis 08/27/2017 Pulmonary embolism 08/27/2017 Pulmonary nodules/lesions, multiple 08/27/2017 Status post cardiac pacemaker procedure 08/27/20 17 Status post catheter ablation of atrial fibrilla tion 08/27/2017 Spinal stenosis 08/27/2017 Hematoma of right thigh 08/27/2017 Hematoma of right flank 08/27/2017 Anemia 08/27/2017 S/P IVC filter 08/27/2017 documented as of this encounter (statuses as of 11/17/2023) Immunizations Name Administration Dates Next Due COVID-19 mRNA, LNP-s, No Pre serve, 2-Dose Series (Moderna) 05/10/2021,10/25/2020,09/20/2020 Covid-19, Mrna, Lnp-s, Pf, B ivalent, 30 Mcg, IM, 12 yrs and above (Pfizer) 06/03/2022 Pneumococcal Conjugate Vacc, 13 Valent (Prevnar) 10/03/2015 Pneumococcal Polysaccharide PPV23 (Pneumovax) 08/12/2017 Seasonal Influenza, Quadriva lent Hd, 65+ Yrs 06/03/2022,07/03/2017 Seasonal Influenza, Split, I IV3, With Preserve, Inj 07/03/2017 Varicella Zoster Vaccine (Adult) 09/02/2012 Zoster Vaccine Recombinant (Shingrix) 07/31/2020 ,05/29/2020 documented as of this encounter Social History Tobacco Use Types Packs/Day Years Used Date Smoking Tobacco: Never Smokeless Tobacco: Never Alcohol Use Standard Drinks/Week Comments No 1 (1 standard drink = 0.6 oz pur e alcohol) Sex and Gender Information Value Date Recorded Sex Assigned at Not on file Gender Identity Not on file Sexual Orientation Not on file Job Start Date Occupation Industry Not on file Not on file Not on file documented as of this encounter Functional Status Functional Status Response Date of Assess ment Are you deaf or do you have serious difficulty h earing? No 08/27/2017 Are you blind or do you have serious difficulty seeing, even when wearing glasses? No 08/27/2017 Do you have serious difficul ty walking or climbing stairs? (5 years old or older) Yes 08/27/2017 Do you have difficulty dress ing or bathing? (5 years old or older) Yes 08/27/2017 Because of a physical, menta l, or emotional condition, do you have difficulty doing errands alone such as visiting a doctor s office or shopping? (15 years old or older) No 08/27/20 17 Cognitive Status Response Date of Assessm ent Because of a physical, menta l, or emotional condition, do you have serious difficulty concentrating, remembering, or making decisions? (5 years old or older) No 08/27/2017 documented as of this encounter Miscellaneous Notes * Telephone Encounter - Daiana Shukla LPN - 11/17/2023 11:45 AM EDT Patient returned call. She is still taking the vesicare. * Telephone Encounter - Jumana Nicole LPN - 11/17/2023 11:39 AM EDT Call placed to patient regarding a fax refill received from [facility] for Vesicare 5mg. No recent refills noted in chart. No answer. LM on voicemail with call back number provided. Did not leave detailedmessage. Only calling to verify whether or not patient is still taking medication. documented in this encounter Plan of Treatment Upcoming Encounters Date Type Department Care Team (Late st Contact Info) Description 12/08/2023 10:00 AM EDT Laboratory Lab Mobile Phlebotomy [facility] [address], [place] [id number] [facility] [place] Draw [address] [place] [address] 12/11/2023 10:20 AM EDT Office Visit Urogynecology [facility] [address] [place] [phone] Andrae Joaquin MD [address] [place] [phone] [place], Nurse Urodynamics [address] [place] [phone] 01/31/2024 8:30 AM EDT Office Visit Cardiology, [facility] [address] [place] [address] Darius Stuart PA-C [address] [place] [phone] 05/21/2024 10:45 AM EDT Office Visit Hematology/Oncology [facility] [place] [address] [place] [phone] Marko Calloway MD [address] [facility] [place] [address] 07/01/2024 8:30 AM EST Cardiac Studies Cardiology, [facility] [address] [place] [address] [facility], Pacer Clinic [facility] [address] [place] [address] Health Maintenance Due Date Last Done Comments Depression Screening 1947 Albumin/Creatinine Ratio 1955 Diabetic Eye Exam 1955 DTaP,Tdap,and Td Vaccines (1 - Tdap) 1956 VITAMIN D LEVEL ONCE IN A LIFETIME-USE SMARTSET# [id number] 1977 DXA Scan 1987 Diabetic Foot Exam 10/03/2018 10/03/2017 Influenza Vaccine (FLU shot) (#1) 2023 06/03/2022, 07/03/2017, 07/03/2017 HbA1c 05/18/2024 11/16/2023, 03/0 08/2023, 2023, Additional history exists B-12 10/19/2024 10/19/2023, 08/26/2022 Pneumococcal Vaccine: 65+ Years Completed 08/12/2017, 10/03/2015 Zoster Vaccines Completed 07/31/2020, 09/2019, 09/02/2012 COVID-19 Vaccine Completed 06/09/2023, 02/2022, 05/10/2021, Additional history exists GARDASIL-HPV IMMUNIZATION SERIES Aged Out No longer eligible based on patient's age to complete this topic Hepatitis B Aged Out No longer eligi ble based on patient's age to complete this topic MENINGOCOCCAL (MENACTRA/MENVEO) Aged Out No longer eligible based on patient's age to complete this topic documented as of this encounter Medical Devices Implanted Type Area Person Investigator Device Identifier Shelf Expiration Date Model / Serial / Lot Bard Peripheral Vascular Alyssa Vena Cava Filter Implanted:Qty: 1 on 08/23/2017 by Nato Singh, DO at RAD[facility] Abdomen 06/27/2020 [id number] / [id number] / [id number] Lens Li61ao 13.00mm 22.00 - [id number] - [id number] Implanted:Qty: 1 on 03/21/2023 by Augustine Duong MD at [facility] Left: Eye [employer] 11/26/2027 [id number] / [id number] / [id number] Lens Li61ao 13.00mm 22.00 - [id number] - [id number] Implanted:Qty: 1 on 04/04/2023 by Augustine Duong MD at [facility] Right: Eye [employer] 12/26/2027 [id number] / [id number] / [id number] documented as of this encounter Advance Directives Latest Code Status on File Code Status Date Activated Date Inactivated Comments No Code 03/21/2023 10:19 AM 03/21/2023 4:27 PM This order reflects the patients wishes and were consensually agreed upon. Question Answer Comments Discussion of Advance Directives occurred with: Patient Does the patient have a Living Will? No Does the patient have Health Care Power of Pediatric Physical Therapist? No Code Status History Code Status Date Activated Date Inactivated Comments Full Code 08/27/2017 9:48 PM 09/04/2017 4:13 PM This order reflects the patients wishes and were consensually agreed upon. Question Answer Comments Discussion of Advance Directives occurred with: Patient Does the patient have a Living Will? No Does the patient have Health Care Power of Pediatric Physical Therapist? No Full Code 08/22/2017 8:14 PM 08/25/2017 7:18 PM Thi s order reflects the patients wishes and were consensually agreed upon. Question Answer Comments Discussion of Advance Directives occurred with: Patient/Family Does the patient have a Living Will? No Does the patient have Health Care Power of Pediatric Physical Therapist? No Care Teams Laborer High Density Press Relationship Specialty Start Date End Date Avelina Douglas CRNP [address] [place] [id number] PCP - General Nurse Practitioner 03/16/23 documented as of this encounter
--- OUTSIDE RECORDS SUMMARY | 2023-11-18 11:37 | External Medical Summary | Summary of Care ---
Author Name Unknown Organization [facility] Address [address] [place] [address] Phone [phone] Care Team Providers Care Assistant Professor Of Physics Name Role Phone Avelina DouglasNP Primary Care Provider Reason for Visit * Reason Onset Date Comments Medication Refill 11/17/2023 Encounter Details Date Type Department Care Team (Late st Contact Info) Description 11/17/2023 Telephone Urogynecology [facility] [address] [place] [address] Andrae Jo[facility]quin MD [address] [facility] [address] Medication Refill Allergies Active Allergy Reactions Criticality [...] Active metFORMIN ER (GLUCOPHAGE XR) 500 MG [id number]:Di abetes mellitus type 2, insulin dependent (HCC) [...] 10:00 AM EDT Laboratory Lab [place] [facility] [address] [place], [place] [phone] [facility] Mobile Home Draw [address] [place] [address] 12/11/2023 10:20 AM EDT Office Visit Urogynecology [facility] [address] [place] [phone] Andrae Joaquin MD [address] [place] [phone] [place], Nurse Urodynamics [address] [place] [phone] 01/31/2024 8:30 AM EDT Office Visit Cardiology, [facility] [address] [place] [address] Darius Stuart PA-C [address] [place] [phone] 05/21/2024 10:45 AM EDT Office Visit Hematology/Oncology [facility] [place] [address] [place] [phone] Marko Calloway MD [address] [facility] [address] 07/01/2024 8:30 AM EST Cardiac Studies Cardiology, [facility] [address] [place] [address] [facility], Pacer Clinic [facility] [address] [place] [address] Health Maintenance Due Date Last Done Comments Depression Screening 1949 Albumin/Creatinine Ratio 1955 Diabetic Eye Exam 1955 DTaP,Tdap,and Td Vaccines (1 - Tdap) 1956 VITAMIN D LEVEL ONCE IN A LIFETIME-USE SMARTSET# [id number] 1977 DXA Scan 1987 Diabetic Foot Exam [...] this encounter Medical Devices Implanted Type Area Residential Care Officer Device Identifier Shelf Expiration Date Model / Serial / Lot Bard Peripheral Vascular Alyssa Vena Cava Filter Implanted:Qty: 1 on 08/23/2017 by Nato Singh, DO at [facility] Abdomen 06/27/2020 [id number] / [id number] / [id number] Lens Li61ao 13.00mm 22.00 - [id number] - [id number] Implanted:Qty: 1 on 03/21/2023 by Augustine Duong MD at [facility] Left: Eye [employer] 11/26/2027 [id number] / [id number] / [id number] Lens Li61ao 13.00mm 22.00 - [id number] - [id number] Implanted:Qty: 1 on 04/04/2023 by Augustine Duong MD at OR [facility] Right: Eye [employer] 12/26/2027 [id number] / [id number] / [id number] documented as of this encounter Advance Directives [...] the patient have Health Care Power of Emu Farm Worker? No Code Status History Code Status Date Activated Date Inactivated Comments Full Code 08/27/2017 9:48 PM 09/04/2017 4:13 PM This order reflects the patients wishes and were consensually agreed upon. Question Answer Comments Discussion of Advance Directives occurred with: Patient Does the patient have a Living Will? No Does the patient have Health Care Power of Emu Farm Worker? No Full Code 08/22/2017 8:14 PM 08/25/2017 7:18 PM Thi s order reflects the patients wishes and were consensually agreed upon. Question Answer Comments Discussion of Advance Directives occurred with: Patient/Family Does the patient have a Living Will? No Does the patient have Health Care Power of Emu Farm Worker? No Care Teams Assistant Professor Of Physics Relationship Specialty Start Date End Date Avelina Douglas CRNP [address] [place] [id number] PCP - General Nurse Practitioner 03/16/23 documented as of this encounter
[2023-11-18] MEDS: PANTOprazole 40 MG in SYRINGE 0 ML IV SCH (11:38)
--- OUTSIDE RECORDS SUMMARY | 2023-11-18 11:38 | External Medical Summary | Summary of Care ---
Author Name Unknown Organization [facility] Address [address] [place] [facility] [place] [facility] [place] [address] Phone [phone] Care Team Providers Care Escrow Manager Name Role Phone Avelina Douglas EMILY Primary Care Provider Reason for Visit * Reason Comments Follow Up Encounter Details Date Type Department Care Team (Late st Contact Info) Description 11/16/2023 9:45 AM EDT Office Visit Hematology/Oncology [facility] [address] [place] [address] Marko Calloway MD [address] [place] [address] Iron deficiency anemia due to chronic blood loss*; Urge incontinence; OAB (overactive bladder); 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); Disorder of thyroid Allergies Active Allergy Reactions Criticality Noted Date Comments Levofloxacin Other (Please comment) 05/26/2017 Cramping pains Nitrofurantoin Nausea/vomiting,Othe r (Please comment) 08/26/2022 Dizziness Propofol Nausea/vomiting 01/03/2018 documented as of this encounter (statuses as of 11/16/2023) Medications Medication Sig Dispensed Refills Start Date [...] Active metFORMIN ER (GLUCOPHAGE XR) 500 MG [id number]:Di abetes mellitus type 2, insulin dependent (HCC) [...] as of this encounter (statuses as of 11/16/2023) Active Problems Problem Noted Date Diagnosed Date [...] as of this encounter (statuses as of 11/16/2023) Immunizations Name Administration Dates Next Due COVID-19 [...] on file documented as of this encounter Last Filed Vital Signs Vital Sign Reading Time Taken Comments Blood Pressure 149/82 11/16/2023 9:03 AM EDT Pulse 87 11/16/2023 9:03 AM EDT Temperature 36.4 C (97.5 F) 11/16/2023 9:03 AM ED T Respiratory Rate 20 11/16/2023 9:03 AM EDT Oxygen Saturation 97% 11/16/2023 9:03 AM EDT Inhaled Oxygen Concentration - - Weight 67.4 kg (148 lb 11.2 oz) 11/16/2023 9:03 AM EDT Height - - Body Mass Index 24 04/04/2023 7:04 AM EDT documented in this encounter Functional Status Functional Status Response [...] No 08/27/2017 documented as of this encounter Progress Notes * Marko Calloway MD - 11/16/2023 9:45 AM EDT Hematology/Oncology Outpatient Consult Note Yenifer Wall [place] [address] [place] [address] ANASTASIIA APONTE MR # [id number] :1935 88-year-old female, Date of consultation:11/15/2023 DIAGNOSIS: Iron deficiency anemia She is on oral Eliquis for underlying cardiac arrhythmia and previous thrombotic complications. CURRENT TREATMENT: -she completed IV iron the form Venofer every weekly x4 between 10/20/2023 -11/10/2023. Planning to get CBCD checkup every 2 weekly, Ferritin checkup every monthly. DIAGNOSTIC WORKUP: In May 2023 she was admitted at [facility] [address] for symptomatic anemia, hemoglobinlevel around 6.9 g/dL with a stool for occult blood was positive. She had black stool at that time,she received 2 units of PRBC she had upper GI endoscopic but then she would respiratory failure andhypertensive urgencies and so decided not to proceed with further diagnostic workup. - upper GI endoscopic was unremarkable ( 06/12/2023). She is on long-term anticoagulant with Eliquis for underlying atrial fibrillation and previous thrombotic complications. CT scan of th Keytruda only e abdomen pelvis on 06/22/2023 showed no acute process, bilateral nonobstructing renal calculi measuring up to 1.3 cm, gallstone present. CT chest with PE protocol and 06/12/2023 showed no evidence of pulmonary embolism. PET-CT ground-glass opacities in the left lower lobe consistent with multilobar pneumonia Blood workup done on 10/19/2023: -WBC 6700, H&H of 7.5, MCV 90, Platelet count of 119066 -Serum iron: 8 -Serum iron 15, TIBC 305, iron saturation 5% on 09/07/2023. Hemoglobin level was around 9.3 on 09/07/2023. OTHER IMPORTANT HISTORY: - Atrial fibrillation, she was on oral Coumadin for the last 8 to 10 years. - Spinal stenosis - Hyperlipidemia - Diabetes mellitus - Left lower extremity DVT and pulmonary embolism - Essential tremor, hypertension - Lung nodules, multiple noted in the recent imaging studies. - S/P permanent pacemaker placement. - S/P IVC filter placement (08/23/2017) - Hematoma involving the right flank and right thigh. - Hematoma involving the retroperitoneal region - She had hysterectomy and oophorectomy earlier in the past, as per the patient it showed benign findings. - Extensive left lower extremity DVT and pulmonary embolism (08/19/2017) - Lung nodules mainly on the right side with some lesions are cavitary in nature. Previous imaging studies done in 2011 and 2012 showed similar type of the lung nodules mainly in the right lung. INTERVAL HISTORY: She has come the clinic for the follow-up, ambulating with the help of the walker. She denies any new bleeding from any sites, she finished 4 treatments of intravenous iron in the form of Venofer recently, some tiredness present, denies any abdominal pain, she would urge incontinence which has improved, had received 2 dosage of Botox, no nausea no vomiting, no fever, current weight around 148 lb which is stable. REVIEW OF SYSTEMS: GENERAL: No recent change in weight, weakness and fatigue +, no fever, sweats or chills. SKIN: No skin rash, no bruising. HEAD: No new headache, no dizziness. EYES: No recent change in the vision, no diplopia, EARS: No earache no tinnitus, NOSE: No epistaxis, No nasal discharge or stuffiness, MOUTH: No sores, no dysphagia, no hoarseness of voice, NECK: No lumps, No swelling in thyroid area. No stiffness. PULMONARY: No cough, Shortness of breath, no hemoptysis, no chest pain, No wheezing. CARDIOVASCULAR: No anginal chest pain, no PND, no orthopnea. No palpitation, no leg edema. No syncope. GASTROINTESTINAL: No abdominal pain, no nausea or vomiting. No diarrhea, No constipation. No blood in stool or black tarry stools at this time. No abdominal distention. UROLOGIC: No burning urination. No hematuria. MUSCULOSKELETAL: No joint pain, No joint swelling, no muscle weakness. HEMATOLOGIC: No anemia, no bleeding disorder, No bruising. NEUROLOGIC: No seizures, no focal weakness, no speech difficulty, No memory disturbances. No tingling or numbness of the extremities. PSYCHIATRIC: No depression. No anxiety. No psychosis. Past Medical History: Diagnosis Date Atrial fibrillation (HCC) 08/27/2017 Deep venous thrombosis (HCC) 08/27/2017 Diabetes mellitus type 2, insulin dependent (HCC) 08/27/2017 Dyslipidemia 08/27/2017 Essential tremor 08/27/2017 Hypertension 08/27/2017 Pulmonary embolism (HCC) 08/27/2017 Pulmonary nodules/lesions, multiple 08/27/2017 Spinal stenosis 08/27/2017 Status post cardiac pacemaker procedure 08/27/2017 Status post catheter ablation of atrial fibrillation 08/27/2017 Past Surgical History: Procedure Laterality Date IR PLACEMENT IVC FILTER 08/23/2017 Secondary to DVT and PE KNEE ARTHROSCOPY/SURGERY Right REMOVE CATARACT, INSERT LENS PROSTH Left 03/21/2023 Left EXTRACAPSULAR CATARACT REMOVAL WITH INTRAOCULAR LENS performed by Augustine Duong MD at [facility] REMOVE CATARACT, INSERT LENS PROSTH Right 04/04/2023 Right EXTRACAPSULAR CATARACT REMOVAL WITH INTRAOCULAR LENS performed by Augustine Duong MD at OR [facility] REMOVE TONSILS & ADENOIDS, AGE 12+ Current Outpatient Medications Medication Sig Dispense Refill acetaminophen (TYLENOL) 500 MG Tablet Take 1 Tablet by mouth every 6 hours as needed for Pain. Dextrose, Diabetic Use, (GLUCOSE) 15 GM/33GM GEL Take by mouth. (Patient not taking: Reported on 07/17/2023) atorvaSTATin (LIPITOR) 20 MG Tablet Take 1 Tablet by mouth in the morning. 30 Tab 5 insulin aspart (INSULIN ASPART) 100 UNIT/ML injection Inject under skin per sliding scale 2 Vial 5 apixaban (ELIQUIS) 5 MG Tablet Take 1 Tab by mouth 2 times a day. 60 Tab 5 LANTUS SOLOSTAR 100 UNIT/ML SOPN Inject 16 Units under the skin in the morning. 1 Pre-filled Pen Syringe Dosing Unit 5 metFORMIN ER (GLUCOPHAGE XR) 500 MG TB24 Take 2 Tabs by mouth daily. (Patient taking differently: Take 1 Tablet by mouth in the morning and 1 Tablet before bedtime.) 60 Tab 11 loperamide (IMODIUM) 2 MG Capsule Take 1 Cap by mouth 4 times a day as needed for Diarrhea. (Patient not taking: Reported on 07/17/2023) 30 Cap 4 ALPRAZolam (XANAX) 0.25 MG Tablet One pill at bedtime for anxiety 30 Tab 0 methimazole (TAPAZOLE) 5 MG Tablet Take 2 Tablets by mouth once a day on Monday, Monday, Monday, and only. Loratadine 10 MG Oral Tablet (Claritin) Take 1 Tablet by mouth in the morning. (Patient not taking:Reported on 07/17/2023) Escitalopram Oxalate 20 MG Oral Tablet (Lexapro) Take 1 Tablet by mouth in the morning. hydroCHLOROthiazide 25 MG Oral Tablet (Hydrodiuril) Take one tablet 2-3 days per week for edema, HTN 36 Tablet 3 Ondansetron HCl 4 MG Oral Tablet (Zofran) Take 1 Tablet by mouth as needed. (Patient not taking: Reported on 07/17/2023) Solifenacin Succinate 5 MG Oral Tablet (VESIcare) Take 1 Tablet by mouth in the morning. 90 Tablet 3 Losartan Potassium 25 MG Oral Tablet (Cozaar) TAKE 1 TABLET BY MOUTH DAILY 90 Tablet 3 Gemtesa 75 MG Oral Tablet Take 1 Tablet by mouth in the morning. 90 Tablet 3 Iron-Vitamin C 65-125 MG Oral Tablet (Vitron C) TAKE 1 TABLET BY MOUTH ONCE DAILY 90 Tablet 3 Metoprolol Succinate ER 100 MG Oral Tablet Extended Release 24 Hour (toPROL XL) Take 1 Tablet by mouth in the morning and 1 Tablet before bedtime. 180 Tablet 3 Fluconazole 150 MG Oral Tablet (Diflucan) Take 1 Tablet by mouth once a week. (Patient not taking: Reported on 10/09/2023) 4 Tablet 0 Estradiol 0.1 MG/GM Vaginal Cream (Estrace) Apply pea sized amount (0.5 mg) vaginally every other night at bedtime 42.5 g 3 No current facility-administered medications for this visit. No family history on file. Social History Socioeconomic History Marital status: Spouse name: Not on file Number of children: Not on file Years of education: Not on file Highest education level: Not on file Occupational History Not on file Tobacco Use Smoking status: Never Smokeless tobacco: Never Vaping Use Vaping Use: Never used Substance and Sexual Activity Alcohol use: No Alcohol/week: 1.0 standard drink of alcohol Types: 1 Mixed drink(s) containing 1.5 shots of alcohol per week Drug use: No Sexual activity: Not on file Other Topics Concern Not on file Social History Narrative Not on file Social Determinants of Health Financial Resource Strain: Not on file Food Insecurity: Not on file Transportation Needs: Not on file Physical Activity: Not on file Stress: Not on file Social Connections: Not on file Intimate Partner Violence: Not on file Housing Stability: Not on file On Exam: Examination done in sitting position BP 149/82 (BP Site: Left Arm, BP Position: Sitting, BP Cuff Size: Regular) | Pulse 87 | Temp 36.4 C (97.5 F) (Tympanic) | Resp 20 | Wt 67.4 kg (148 lb 11.2 oz) | SpO2 97% | BMI 24.00 kg/m | BSA1.77 m Constitutional: Patient is alert, cooperative and oriented x 3. Well built female, Patient is in noacute distress. HEENT: No icterus, no pallor, Throat and pharynx normal. Sinuses are non-tender. Neck: Supple and without lymphadenopathy or masses. No JVD. No Palpable supraclavicular lymph nodes. Lungs: Clear to auscultation. Bilateral symmetric air entry. No wheezing or rhonchi. Cardiovascular: Normal heart sounds, no murmurs.Regular rate and rhythm. Abdomen: Soft, nontender, no hepatomegaly, no splenomegaly. Bowel sounds are normal. Neurological: No gross focal neurological deficit; walks with the help of walker Extremities: No finger clubbing, No cyanosis. No leg edema. Skin:: No skin rash. SPINE: No spinal or paraspinal tenderness. LABS: Blood workup done on 11/16/2023: -WBC 8600, H&H of 9.8/34.4, Platelet count of 245890, MCV 94 -BUN/Creat: 17/09.1, Calcium 9.4. IMAGING: As described above. ASSESSMENT AND PLAN: 88-year-old female, who is on oral anticoagulant for long time for underlying cardiac arrhythmia and thrombotic complications, recently blood workup showed iron deficiency anemia, she had black stoolin the blood, She had similar iron deficiency last year, she was admitted at [facility] [address], reviewed hospital records, she had endoscopic evaluation, she had only upper GI endoscopic but then she had some complications and so decided not to proceed with any kind of endoscopic evaluation. Now she has received 4 treatment of intravenous iron with Venofer, I reviewed her blood workup donetoday, hemoglobin improved to around 9.8 g/dL. Currently she has not on any oral iron replacement therapy I would like to check CBCD every 2 weekly. Will check Ferritin, iron profile every monthly. She has drop in the hemoglobin/iron storage, will consider for IV iron maintenance every monthly. Will see her in about [address] Marko Calloway Hem/Onc (This note was completed using the dictation program Fluency Direct. As such, there may be misspellings word substitutions, or other variations that should not change the essence of the clinical content of this encounter note. If there is need for further clarification, please direct questions to the provider listed above.) documented in this encounter Nursing Notes * Brinda Reina, OSMAR ASSIST - 11/16/2023 9:03 AM EDT Patient identifed by name and birthdate Do you have any concerns about pain management for today's visit? Yes. Patient instructed to discuss pain concerns with provider during the visit today Living Will or Advance Directive for Health Care as noted on the problem list. [facility] is a way you can talk to your provider on line through e-mail. Would you like to sign up? I can activate it for you? ALREADY ACTIVE Filed Vitals: 11/16/23 0903 BP: 149/82 Pulse: 87 Resp: 20 Temp: 36.4 C (97.5 F) TempSrc: Tympanic SpO2: 97% Weight: 67.4 kg (148 lb 11.2 oz) Patient was instructed to not get up on the exam table/exam chair until directed and assisted by their provider; patient is to remain seated in the chair/ wheelchair/ exam table/ exam chair for fall prevention and safety reasons. Patient is aware to have assistance to step down off exam table/exam chair with personnel. Patient voiced full comprehension of instructions. documented in this encounter Plan of Treatment Upcoming Encounters Date Type Department Care Team (Late st Contact Info) Description 12/08/2023 10:00 AM EDT Laboratory Lab Mobile Phlebotomy [facility] [address] [place] [address] [facility] Mobile Home Draw [address] [place] [address] 12/11/2023 10:20 AM EDT Office Visit Urogynecology [facility] [address] [place] [id number] Andrae Joaquin MD [address] [place] [place] [phone] [place] [facility] [address] [place] [phone] 01/31/2024 8:30 AM EDT [facility] [address] [place] [address] Darius Stuart PA-C [address] [place] [place] [phone] 05/21/2024 10:45 AM EDT Office Visit Hematology/Oncology [facility] [address] [place] [phone] Marko Calloway MD [address] [place] [address] 07/01/2024 8:30 AM EST Cardiac Studies Cardiology, [facility] [address] [place] [address] [facility] [address] [place] [address] Pending Results Name Type Priority Associated Diagnoses Date /Time FERRITIN Lab Routine Iron deficiency anemia due to chronic blood loss 11/16/2023 8:42 AM EDT Scheduled Orders Name Type Priority Associated Diagnoses Orde r Schedule CBC WITH WBC DIFFERENTIAL Lab Routine Iron deficiency anemia due to chronic blood loss Every 2 Weeks for 26 Occurrences starting 11/16/2023 until 11/15/2024 FERRITIN Lab Routine Iron deficiency anemia due to chronic blood loss Every Month for 12 Occurrences starting 11/16/2023 until 11/15/2024 IRON SCREEN, INCLUDING TIBC Lab Routine Iron deficiency anemia due to chronic blood loss Every Month for 12 Occurrences starting 11/16/2023 until 11/15/2024 Health Maintenance Due Date Last Done Comments Depression Screening 1947 Albumin/Creatinine Ratio 1955 Diabetic Eye Exam 1955 DTaP,Tdap,and Td Vaccines (1 - Tdap) 1956 VITAMIN D LEVEL ONCE IN A LIFETIME-USE SMARTSET# [id number] 1977 DXA Scan 1987 Diabetic Foot Exam 10/03/2018 10/03/2017 Influenza Vaccine (FLU shot) (#1) 2023 06/03/2022, 07/03/2017, 07/03/2017 HbA1c 05/18/2024 11/16/2023, 0 08/2023, 2023, Additional history exists B-12 10/19/2024 10/19/2023, 08/26/2022 Pneumococcal Vaccine: 65+ Years Completed 08/12/2017, 10/03/2015 Zoster Vaccines Completed 07/31/2020, 0 09/2019, 09/02/2012 COVID-19 Vaccine Completed 06/09/2023, 02/2022, [...] this encounter Medical Devices Implanted Type Area Bad Cloth Checker Device Identifier Shelf Expiration Date Model / Serial / Lot Bard Peripheral Vascular Alyssa Vena Cava Filter Implanted:Qty: 1 on 08/23/2017 by Nato Singh DO at RADIOLOGY [facility] Abdomen 06/27/2020 [id number] / [id number] / [id number] Lens Li61ao 13.00mm 22.00 - [id number] - [id number] Implanted:Qty: 1 on 03/21/2023 by Augustine Duong MD at OR [facility] Left: Eye [employer] 11/26/2027 [id number] / [id number] / [id number] Lens Li61ao 13.00mm 22.00 - [id number] - [id number] Implanted:Qty: 1 on 04/04/2023 by Augustine Duong MD at OR [facility] Right: Eye [employer] 12/26/2027 [id number] / [id number] / [id number] documented as of this encounter Procedures Procedure Name Priority Date/Time Associated Diagnosis Comments DIFFERENTIAL, AUTOMATED STAT 11/16/2023 8:42 AM EDT Iron deficiency anemia due to chronic blood loss RETICULOCYTE PANEL Routine 11/16/2023 8: 42 AM EDT Iron deficiency anemia due to chronic blood loss HEMOGLOBIN A1C Routine 11/16/2023 8:42 AM EDT 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) BASIC METABOLIC PANEL Routine 11/16/2023 8:42 AM EDT Urge incontinence OAB (overactive bladder) IRON SCREEN, INCLUDING TIBC Routine 11/16/2023 8:42 AM EDT Iron deficiency anemia due to chronic blood loss CBC STAT 11/16/2023 8:42 AM EDT Iron deficiency anemia due to chronic blood loss CBC STAT 11/16/2023 8:42 AM EDT Iron deficiency anemia due to chronic blood loss TSH Routine 11/16/2023 8:42 AM EDT Disorder of thyroid documented in this encounter Results * DIFFERENTIAL, AUTOMATED (11/16/2023 8:42 AM EDT) WBC 8.68 4.00 - 10.80 K/uL 11/16/2023 8:58 AM EDT [facility] 56-02 Neutrophils % 62.3 40.0 - 75.0 % 11/16/2023 8:58 AM EDT [facility] 56-02 Lymphocytes % 22.8 18.0 - 42.0 % 11/16/2023 8:58 AM EDT [facility] 56-02 Monocytes % 9.8 1.0 - 11.0 % 11/16/2023 8:58 AM EDT [facility] 56-02 Eosinophils % 5.0 0.0 - 6.0 % 11/16/2023 8:58 AM EDT [facility] 56-02 Basophils % 0.1 0.0 - 2.0 % 11/16/2023 8:58 AM EDT [facility] 56-02 Absolute Neutrophils 5.41 1.80 - 7.70 K/uL 11/16/2023 8:58 AM EDT [facility] 56-02 Absolute Lymphocytes 1.98 1.00 - 4.80 K/ul 11/16/2023 8:58 AM EDT [facility] 56- Absolute Monocytes 0.85 0.00 - 1.10 K/uL 11/16/2023 8:58 AM EDT [facility] 56- Absolute Eosinophils 0.43 0.00 - 0.70 K/uL 11/16/2023 8:58 AM EDT [facility] 56- Absolute Basophils 0.01 0.00 - 0.20 K/uL 11/16/2023 8:58 AM EDT [facility] 56 Blood Venous blood specimen / Unknown Venipuncture / Unknown 11/16/2023 8:42 AM EDT 11/16/2023 8:42 AM EDT Marko Calloway MD LAB BLOOD ORDERABLES [facility] [address] [place] [address] * (ABNORMAL) CBC (11/16/2023 8:42 AM EDT) WBC 8.68 4.00 - 10.80 K/uL 11/16/2023 8:58 AM EDT [facility] 56 RBC 3.65 3.85 - 5.15 M/uL 11/16/2023 8:58 AM EDT [facility] 56 HGB 9.8(L) 12.0 - 15.3 g/dL 11/16/2023 8:58 AM EDT [facility] 56 HCT 34.4(L) 36.0 - 45.2 % 11/16/2023 8:58 AM EDT [facility] 56- MCV 94.2 81.5 - 97.5 fL 11/16/2023 8:58 AM EDT [facility] 56 MCH 26.8 27.0 - 34.0 pg 11/16/2023 8:58 AM EDT [facility] 56 MCHC 28.5 32.0 - 36.0 g/dL 11/16/2023 8:58 AM EDT [facility] 56 RDW 20.4 11.5 - 15.5 % 11/16/2023 8:58 AM EDT [facility] 56 PLT 346 140 - 400 K/uL 11/16/2023 8:58 AM EDT [facility] 56- MPV 9.3 6.6 - 11.1 fL 11/16/2023 8:58 AM EDT [facility] 56- Blood Venous blood specimen / Unknown Venipuncture / Unknown 11/16/2023 8:42 AM EDT 11/16/2023 8:42 AM EDT Marko Calloway MD LAB BLOOD ORDERABLES [facility] 56- [address] [place] [address] * (ABNORMAL) RETICULOCYTE PANEL (11/16/2023 8:42 AM EDT) Pathologist [facility] Reticulocyte Percent 4.42(H) 0.80 - 1.90 % 11/16/2023 12:37 PM EDT [facility] Absolute Reticulocyte 160.4(H) 31.3 - 100.1 K/uL 11/16/2023 12:37 PM EDT [facility] Immature Reticuloctye Fraction 25.2(H) 2.5 - 20.6 % 11/16/2023 12:37 PM EDT [facility] Reticulocyte Hemoglobin 31.6 29.7 - 37.4 pg 11/16/2023 12:37 PM EDT [facility] Blood Venous blood specimen / Unknown Venipuncture / Unknown 11/16/2023 8:42 AM EDT 11/16/2023 8:42 AM EDT Marko Calloway MD LAB BLOOD ORDERABLES [facility] [address] [facility] [place] [address] * (ABNORMAL) IRON SCREEN, INCLUDING TIBC (11/16/2023 8:42 AM EDT) Pathologist [facility] Iron 47 33 - 151 ug/dL 11/16/2023 12:33 PM EDT [facility] Iron Binding Capacity 200(L) 250 - 425 ug/dL 11/16/2023 12:33 PM EDT [facility] Transferrin Saturation Percent 24 15 - 55 % 11/16/2023 12:33 PM EDT [facility] Blood Venous blood specimen / Unknown Venipuncture / Unknown 11/16/2023 8:42 AM EDT 11/16/2023 8:42 AM EDT Marko Calloway MD LAB BLOOD ORDERABLES Performing Organization Address [facility] Co de Phone Number LABORATORY [facility] [address] [place] [address] * (ABNORMAL) TSH (11/16/2023 8:42 AM EDT) TSH 6.78(H) 0.27 - 4.20 uIU/mL 11/16/2023 1:00 PM EDT LAB[facility]ORY [facility] Blood Venous blood specimen / Unknown Venipuncture / Unknown 11/16/2023 8:42 AM EDT 11/16/2023 8:42 AM EDT Avelina DIAZ LAB BLOOD ORDE RABKAREN Performing Organization Address [facility] de Phone Number LABORATORY [facility] [address] [place] [address] * HEMOGLOBIN A1C (11/16/2023 8:42 AM EDT) Hemoglobin A1C 5.4 4.0 - 5.6 % 11/16/2023 12:22 PM EDT [facility] Comment:The use of HbA1c to monitor glycemic status is based on normal hemoglobin and HbA composition. This test should not be used in patients with abnormal hemoglobin that affects the half life of the red blood cell or the in vivo glycation rates. Estimated Average Glucose 108 <126 mg/dL 11/16/2023 12:22 PM EDT LAB[facility] Blood Venous blood specimen / Unknown Venipuncture / Unknown 11/16/2023 8:42 AM EDT 11/16/2023 8:42 AM EDT Avelina DIAZ LAB BLOOD ORDE RABKAREN LABORATORY [facility] [address] [place] [address] * (ABNORMAL) BASIC METABOLIC PANEL (11/16/2023 8:42 AM EDT) BUN 21(H) 6 - 20 mg/dL 11/16/2023 9:16 AM EDT [place] [address]- Creatinine 1.1(H) 0.5 - 1.0 mg/dL 11/16/2023 9:16 AM EDT [address] Estimated Glomerular Filtration Rate 48(L) >=60 mL/min 11/16/2023 9:16 AM EDT [facility] 56 Comment:eGFR is calculated b ased on the CKD-EPI 2020 equation Sodium 139 135 - 146 mmol/L 11/16/2023 9:16 AM EDT [facility] 56 Potassium 4.3 3.5 - 5.1 mmol/L 11/16/2023 9:16 AM EDT [facility] 56- Chloride 103 98 - 107 mmol/L 11/16/2023 9:16 AM EDT [place] [address]- CO2 26 22 - 32 mmol/L 11/16/2023 9:16 AM EDT [facility] 56- Anion Gap 10 7 - 15 mmol/L 11/16/2023 9:16 AM EDT [facility] 56- Glucose 111 70 - 120 mg/dL 11/16/2023 9:16 AM EDT [facility] 56- Calcium 9.4 8.4 - 10.2 mg/dL 11/16/2023 9:16 AM EDT [facility] 56 Blood Venous blood specimen / Unknown Venipuncture / Unknown 11/16/2023 8:42 AM EDT 11/16/2023 8:42 AM EDT Andrae Joaquin MD LAB BLOOD ORDERABLES [facility] [address] [place] [address] documented in this encounter Visit Diagnoses Diagnosis Iron deficiency anemia due to chronic blood loss- Primary Iron deficiency anemia secondary to blood loss (chronic) Urge incontinence OAB (overactive bladder) 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 Question Answer Comments Discussion of Advance Directives occurred with: Patient Does the patient have a Living Will? No Does the patient have Health Care Power of Outdoor Education Teacher? No Code Status History Code Status Date Activated Date Inactivated Comments Full Code 08/27/2017 9:48 PM 09/04/2017 4:13 PM This order reflects the patients wishes and were consensually agreed upon. Question Answer Comments Discussion of Advance Directives occurred with: Patient Does the patient have a Living Will? No Does the patient have Health Care Power of Outdoor Education Teacher? No Full Code 08/22/2017 8:14 PM 08/25/2017 7:18 PM Thi s order reflects the patients wishes and were consensually agreed upon. Question Answer Comments Discussion of Advance Directives occurred with: Patient/Family Does the patient have a Living Will? No Does the patient have Health Care Power of Outdoor Education Teacher? No Care Teams Escrow Manager Relationship Specialty Start Date End Date Avelina Douglas CRNP [address] [place] [address] PCP - General Nurse Practitioner 03/16/23 documented as of this encounter"
--- OUTSIDE RECORDS SUMMARY | 2023-11-18 11:38 | External Medical Summary ---
Author Name Unknown Address Unknown Organization [id number]:[place] [facility] [place] [address] [place] [address] Laboratory Report Ordering Provider Test Date Status BRENDA RAMSEY 11/16/2023 08:42:20 Final Observation Date Value Abnormality Reference (Units ) Status Iron 11/16/2023 08:42:20 47 33-151 (ug/dL) Final Iron-binding capacity 11/16/2023 08:42:20 200 Below low normal 250-425 (ug/dL) Final Transferrin Sat % 11/16/2023 08:42:20 24 15-55 (%) Final Performing Location [facility] [place] [address] [place] [address]
--- OUTSIDE RECORDS SUMMARY | 2023-11-18 11:38 | External Medical Summary ---
Author Name Unknown Address Unknown Organization K09:[facility] [place] [address] Laboratory Report Ordering Provider Test Date Status LAVONNE PARRISH 11/16/2023 08:42:20 Final Observation Date Value Abnormality Reference (Units ) Status BUN 11/16/2023 08:42:20 21 Above high normal 6-20 (mg/dL) Final Creatinine 11/16/2023 08:42:20 1.1 Above high normal 0.5-1.0 (mg/dL) Final Glomerular filtration rate/1.73 sq M.predicted [Volume Rate/Area] in Serum, Plasma or Blood by Creatinine-based formula (CKD-EPI) 11/16/2023 08:42:20 48 Below low normal >=60 (mL/min) Final eGFR is calculated based on the CKD-EPI 2020 equation Sodium 11/16/2023 08:42:20 139 135-146 (m mol/L) Final Potassium 11/16/2023 08:42:20 4.3 3.5-5.1 (m mol/L) Final Cl 11/16/2023 08:42:20 103 98-107 (mm ol/L) Final CO2 11/16/2023 08:42:20 26 22-32 (mmo l/L) Final Anion gap 11/16/2023 08:42:20 10 7-15 (mmol /L) Final Glucose 11/16/2023 08:42:20 111 70-120 (mg /dL) Final Calcium 11/16/2023 08:42:20 9.4 8.4-10.2 ( mg/dL) Final Performing Location [facility] [place] [address]
--- OUTSIDE RECORDS SUMMARY | 2023-11-18 11:38 | External Medical Summary | Summary of Care ---
Author Name Unknown Organization [facility] Address [address] [facility] [place] [address] Phone [phone] Care Team Providers Care Clerical Aide Name Role Phone Avelina Douglas EMILY Primary Care Provider Encounter Details Date Type Department Care Team (Late st Contact Info) Description 11/10/2023 Orders Only Hematology/Oncology [facility] Bernardo [address] [facility] [place] [phone] Marko Calloway MD [address] [place] [address] Iron deficiency anemia due to chronic blood loss* Allergies Active Allergy Reactions Criticality Noted Date Comments Levofloxacin Other (Please comment) 05/26/2017 Cramping pains Nitrofurantoin Nausea/vomiting,Othe r (Please comment) 08/26/2022 Dizziness Propofol Nausea/vomiting 01/03/2018 documented as of this encounter (statuses as of 11/10/2023) Medications Medication Sig Dispensed Refills Start Date [...] Active metFORMIN ER (GLUCOPHAGE XR) 500 MG [id number]:Di abetes mellitus type 2, insulin dependent (HCC) [...] as of this encounter (statuses as of 11/10/2023) Active Problems Problem Noted Date Diagnosed Date [...] as of this encounter (statuses as of 11/10/2023) Immunizations Name Administration Dates Next Due COVID-19 [...] Progress Notes * Marko Calloway MD - 11/10/2023 3:17 PM EDT 11/10/2023, she is here for 4th IV iron in the form of Venofer. -WBC 6700,, H&H of 8.3/29.6, Platelet count of 270,000, MCV 93 Would like to have a CBCD, Ferritin, iron profile, reticulocyte count in about 1 week time. documented in this encounter Plan of Treatment Upcoming Encounters Date Type Department Care Team (Late st Contact Info) Description 11/16/2023 9:45 AM EDT Office Visit Hematology/Oncology [facility] [place] [address] [place] [phone] Marko Calloway MD [address] [facility] [place] [address] 12/08/2023 10:00 AM EDT Laboratory Lab [place] [facility] [place] [address] [place], [place] [phone] [facility] [place] Mobile Home Draw [address] [place], [place] [phone] 12/11/2023 10:20 AM EDT Office Visit Urogynecology [facility] [address] [place] [phone] Andrae Joaquin MD [address] [place], [place] [phone] [place], Nurse Urodynamics [address] [place] [address] 01/31/2024 8:30 AM EDT Office Visit Cardiology, [facility] [address] [place] [address] Darius Stuart PA-C [address] [place] [address] 07/01/2024 8:30 AM EST Cardiac Studies Cardiology, [facility] [address] [place] [address] [facility] [address] [place] [address] Scheduled Orders Name Type Priority Associated Diagnoses Orde r Schedule CBC WITH WBC DIFFERENTIAL Lab STAT Iron deficiency anemia due to chronic blood loss Expected: 11/24/2023, Expires: 11/09/2024 IRON SCREEN, INCLUDING TIBC Lab Routine Iron deficiency anemia due to chronic blood loss Expected: 11/24/2023, Expires: 11/09/2024 FERRITIN Lab Routine Iron deficiency anemia due to chronic blood loss Expected: 11/24/2023, Expires: 11/09/2024 RETICULOCYTE PANEL Lab Routine Iron deficiency anemia due to chronic blood loss Expected: 11/24/2023, Expires: 11/09/2024 Health Maintenance Due Date Last Done Comments Depression Screening 1947 Albumin/Creatinine Ratio 1955 Diabetic Eye Exam 1955 DTaP,Tdap,and Td Vaccines (1 - Tdap) 1956 VITAMIN D LEVEL ONCE IN A LIFETIME-USE SMARTSET# 58484 1977 DXA Scan 1987 Diabetic Foot Exam 10/03/2018 10/03/2017 Influenza Vaccine (FLU shot) (#1) 2023 06/03/2022, 07/03/2017, 07/03/2017 HbA1c 04/28/2024 10/27/2023, 02/2023, 05/04/2023, Additional history exists B-12 10/19/2024 10/19/2023, 08/26/2022 [...] this encounter Medical Devices Implanted Type Area Hat Brim Curler Device Identifier Shelf Expiration Date Model / Serial / Lot Bard Peripheral Vascular [place] Vena Cava Filter Implanted:Qty: 1 on 08/23/2017 by Nato Singh DO at [place] [facility] [place]domen 06/27/2020 [id number] / [id number] / [id number] Lens Li61ao 13.00mm 22.00 - [id number] - [id number] Implanted:Qty: 1 on 03/21/2023 by Augustine Duong MD at OR [facility] Left: Eye [employer]OMB 11/26/2027 [id number] / [id number] / [id number] Lens Li61ao 13.00mm 22.00 - [id number] - [id number] Implanted:Qty: 1 on 04/04/2023 by Augustine Duong MD at OR [facility] Right: Eye BAUSCH [employer] LOMB 12/26/2027 [id number] / [id number] / [id number] documented as of this encounter Visit Diagnoses Diagnosis Iron deficiency anemia due to chronic blood loss- Primary Iron deficiency anemia secondary to blood loss (chronic) documented in this encounter Advance Directives Latest Code Status on File Code Status Date Activated Date Inactivated Comments No Code 03/21/2023 10:19 AM 03/21/2023 4:27 PM This order reflects the patients wishes and were consensually agreed upon. Question Answer Comments Discussion of Advance Directives occurred with: Patient Does the patient have a Living Will? No Does the patient have Health Care Power of Installation Helper? No Code Status History Code Status Date Activated Date Inactivated Comments Full Code 08/27/2017 9:48 PM 09/04/2017 4:13 PM This order reflects the patients wishes and were consensually agreed upon. Question Answer Comments Discussion of Advance Directives occurred with: Patient Does the patient have a Living Will? No Does the patient have Health Care Power of Installation Helper? No Full Code 08/22/2017 8:14 PM 08/25/2017 7:18 PM Thi s order reflects the patients wishes and were consensually agreed upon. Question Answer Comments Discussion of Advance Directives occurred with: Patient/Family Does the patient have a Living Will? No Does the patient have Health Care Power of Installation Helper? No Care Teams Clerical Aide Relationship Specialty Start Date End Date Avelina Douglas CRNP [address] [place] [address] PCP - General Nurse Practitioner 03/16/23 documented as of this encounter
--- OUTSIDE RECORDS SUMMARY | 2023-11-18 11:38 | External Medical Summary ---
Author Name Unknown Address Unknown Organization K01:LAB[facility]ATORY [facility] [place] - [address] [place] [address] Laboratory Report Ordering Provider Test Date Status FRANKIE BERKOWITZ 11/16/2023 08:42:20 Final Observation Date Value Abnormality Reference (Units ) Status TSH 11/16/2023 08:42:20 6.78 Above high normal 0. 27-4.20 (uIU/mL) Final Performing Location LABORATORY C - [address] [place] [address]
--- OUTSIDE RECORDS SUMMARY | 2023-11-18 11:38 | External Medical Summary ---
Author Name Unknown Address Unknown Organization K09:[facility]ORATORY [facility] [address] [place] [address] Laboratory Report Ordering Provider Test Date Status BRENDA RAMSEY 11/03/2023 13:59:33 Final While on Venofer weekly. Observation Date Value Abnormality Reference (Units ) Status SYNC LEUKOCYTES IN BLOOD BY AUTOMATED COUNT 11/03/2023 13:59:33 6.67 4.00-10.80 (K/uL) Final Segs 11/03/2023 13:59:33 62.9 40.0-75.0 (%) Final Lymphs % 11/03/2023 13:59:33 20.7 18.0-42.0 (%) Final Monos 11/03/2023 13:59:33 9.4 1.0-11.0 (%) Final Eosinophils 11/03/2023 13:59:33 6.6 Above high normal 0.0-6.0 (%) Final Basos 11/03/2023 13:59:33 0.4 0.0-2.0 (%) Final Absolute Segs 11/03/2023 13:59:33 4.19 1.80-7.70 (K/uL) Final Lymphs, absolute 11/03/2023 13:59:33 1.38 1.00-4.80 (K/ul) Final Monos, Abs 11/03/2023 13:59:33 0.63 0.00-1.10 (K/uL) Final Eos, Abs 11/03/2023 13:59:33 0.44 0.00-0.70 (K/uL) Final Basos, Abs 11/03/2023 13:59:33 0.03 0.00-0.20 (K/uL) Final Performing Location [facility] [place] [address]
--- OUTSIDE RECORDS SUMMARY | 2023-11-18 11:38 | External Medical Summary ---
Author Name Unknown Address Unknown Organization K09:[facility] [place] [place] [address] Laboratory Report Ordering Provider Test Date Status BRENDA RAMSEY 11/16/2023 08:42:20 Final Observation Date Value Abnormality Reference (Units ) Status SYNC LEUKOCYTES IN BLOOD BY AUTOMATED COUNT 11/16/2023 08:42:20 8.68 4.00-10.80 (K/uL) Final Segs 11/16/2023 08:42:20 62.3 40.0-75.0 (%) Final Lymphs % 11/16/2023 08:42:20 22.8 18.0-42.0 (%) Final Monos 11/16/2023 08:42:20 9.8 1.0-11.0 (%) Final Eosinophils 11/16/2023 08:42:20 5.0 0.0-6.0 (%) Final Basos 11/16/2023 08:42:20 0.1 0.0-2.0 (%) Final Absolute Segs 11/16/2023 08:42:20 5.41 1.80-7.70 (K/uL) Final Lymphs, absolute 11/16/2023 08:42:20 1.98 1.00-4.80 (K/ul) Final Monos, Abs 11/16/2023 08:42:20 0.85 0.00-1.10 (K/uL) Final Eos, Abs 11/16/2023 08:42:20 0.43 0.00-0.70 (K/uL) Final Basos, Abs 11/16/2023 08:42:20 0.01 0.00-0.20 (K/uL) Final Performing Location [facility] [place] [address]
--- OUTSIDE RECORDS SUMMARY | 2023-11-18 11:38 | External Medical Summary ---
Author Name Unknown Address Unknown Organization K01:LABORATORY [facility] [place] [address] [place] [address] Laboratory Report Ordering Provider Test Date Status BRENDA RAMSEY 11/16/2023 08:42:20 Final Observation Date Value Abnormality Reference (Units ) Status Ferritin 11/16/2023 08:42:20 253 Above high normal 13 -150 (ng/mL) Final Postmenopausal women have hi gher ferritin levels than pre-menopausal women. The above reference interval is based on pre-menopausal women. Performing Location LABORATORY [facility] [place] [address] [place] [address]
--- OUTSIDE RECORDS SUMMARY | 2023-11-18 11:38 | External Medical Summary | Summary of Care ---
Author Name Unknown Organization [facility] Address [address] [facility] [address] Phone [phone] Care Team Providers Care Civil Engineering Designer Name Role Phone Avelina Douglas EMILY Primary Care Provider Reason for Visit * Reason Comments IV Therapy Venofer. Encounter Details Date Type Department Care Team (Latest Contact Info) Description 10/20/2023 11:45 AM EST Hem/Onc Treatment Hematology/Oncology Treatment, [address] [phone] [place], Chair [address] Hem Onc [address] [address] Iron deficiency anemia due to chronic blood loss* Allergies Active Allergy Reactions Criticality Noted Date Comments Levofloxacin Other (Please comment) 05/26/2017 Cramping pains Nitrofurantoin Nausea/vomiting,Othe r (Please comment) 08/26/2022 Dizziness Propofol Nausea/vomiting 01/03/2018 documented as of this encounter (statuses as of 11/14/2023) Medications Medication Sig Dispensed Refills Start Date [...] Active metFORMIN ER (GLUCOPHAGE XR) 500 MG [id number]:Di abetes mellitus type 2, insulin dependent (HCC) [...] as of this encounter (statuses as of 11/14/2023) Active Problems Problem Noted Date Diagnosed Date [...] as of this encounter (statuses as of 11/14/2023) Immunizations Name Administration Dates Next Due COVID-19 [...] Sign Reading Time Taken Comments Blood Pressure 160/79 10/20/2023 11:55 AM EST Pulse 81 10/20/2023 11:55 AM EST Temperature 36.4 C (97.5 F) 10/20/2023 11:[address] Respiratory Rate 18 10/20/2023 11:55 AM EST Oxygen Saturation 94% 10/20/2023 11:55 AM EST Inhaled Oxygen Concentration - - Weight - - Height - - Body Mass Index - - documented in this encounter Functional Status Functional [...] No 08/27/2017 documented as of this encounter Nursing Notes * Ignacia Cabello RN - 10/20/2023 2:00 PM EST Goals: Patient will remain free from injury. Possible barriers to meeting goals: Fall risk d/t ambulation with IV pole. Stability of the patient: Moderately unstable - medium risk of patient condition declining or worsening Summary regarding today's goals: Met: Patient remained free of injury. Patient tolerated infusion well. Discharged in stable condition. * Ignacia Cabello RN - 10/20/2023 1:53 PM EST Chair 1. Patient arrived for venofer infusion with no acute complaints. Patient was oriented to treatment room and infusion process, patient verbalized understanding. PIV established with no issues. Safety and Risk for Injury Patient will remain free from injury. Ensure appropriate safety devices are available. Provide and maintain safe environment. documented in this encounter Plan of Treatment Upcoming Encounters Date Type Department Care Team (Late st Contact Info) Description 11/16/2023 9:45 AM EDT Office Visit Hematology/Oncology [facility] [address] [facility] [place] [address] Marko Calloway MD [address] [facility] [place] [address] 12/08/2023 10:00 AM EDT Laboratory Lab Mobile Phlebotomy [facility] [address] [place] [address] [facility] Mobile Home Draw [address] [place] [address] 12/11/2023 10:20 AM EDT Office Visit Urogynecology [facility] [address] [employer] [place] [address] Andrae Joaquin MD [address] [place] [address] [place], Nurse Urodynamics [address] [place] [address] 01/31/2024 8:30 AM EDT Office Visit Cardiology, [facility] [address] [place] [address] Darius Stuart PA-C [address] [place] [address] 07/01/2024 8:30 AM EST Cardiac Studies Cardiology, [facility] [address] [place] [address] [facility] [address] [place] [address] Health Maintenance Due Date Last Done Comments Depression Screening 1947 Albumin/Creatinine Ratio 1955 Diabetic Eye Exam 1955 DTaP,Tdap,and Td Vaccines (1 - Tdap) 1956 VITAMIN D LEVEL ONCE IN A LIFETIME-USE SMARTSET# 85019 1977 DXA Scan 1987 Diabetic Foot Exam 10/03/2018 10/03/2017 Influenza Vaccine (FLU shot) (#1) 2023 06/03/2022, 07/03/2017, 07/03/2017 HbA1c 04/28/2024 10/27/2023, 02/2023, 05/04/2023, Additional history exists B-12 10/19/2024 10/19/2023, 08/26/2022 Pneumococcal Vaccine: 65+ Years Completed 08/12/2017, 10/03/2015 Zoster Vaccines Completed 07/31/2020, 1009/2019, 09/02/2012 COVID-19 Vaccine Completed 06/09/2023, 02/2022, 05/10/2021, [...] this encounter Medical Devices Implanted Type Area Laboratory Apparatus Glass Grinder Device Identifier Shelf Expiration Date Model / Serial / Lot Bard Peripheral Vascular [place] Vena Cava Filter Implanted:Qty: 1 on 08/23/2017 by Nato Singh DO at [facility] [facility] Abdomen 06/27/2020 [id number] / [id number] / [id number] Lens Li61ao 13.00mm 22.00 - [id number] - [id number] Implanted:Qty: 1 on 03/21/2023 by Augustine Duong MD at [place] [facility] Left: Eye [employer]OM[employer] 11/26/2027 [id number] / [id number] / [id number] Lens Li61ao 13.00mm 22.00 - [id number] - [id number] Implanted:Qty: 1 on 04/04/2023 by Augustine Duong MD at OR [facility] Right: Eye BAUSCH & LOMB 12/26/2027 [id number] / [id number] / [id number] documented as of this encounter Visit Diagnoses Diagnosis Iron deficiency anemia due to chronic blood loss- Primary Iron deficiency anemia secondary to blood loss (chronic) documented in this encounter Administered Medications Inactive Administered Medications - up to 3 most recent administrations Medication Order MAR Action Action Date Dose Rate Site Iron Sucrose (Venofer) 300 mg in NSS 250 mL ivpb 300 mg, IV Piggyback, ONCE, 1 dose, On Mon10/20/23 at 1345, Administer over 90 Minutes Start Infusion 10/20/2023 12:18 PM EST 300 mg 166.67 mL/hr NSS infusion 500 mL, Intravenous, at 50 mL/hr, CONTINUOUS, Starting on Mon10/20/23 at 1315, Until Mon10/20/23 at 1843 Start Infusion 10/20/2023 12:17 PM EST 500 mL 50 mL/hr documented in this encounter Advance Directives Latest Code Status on File Code Status Date Activated Date Inactivated Comments No Code 03/21/2023 10:19 AM 03/21/2023 4:27 PM This order reflects the patients wishes and were consensually agreed upon. Question Answer Comments Discussion of Advance Directives occurred with: Patient Does the patient have a Living Will? No Does the patient have Health Care Power of Safety Officer? No Code Status History Code Status Date Activated Date Inactivated Comments Full Code 08/27/2017 9:48 PM 09/04/2017 4:13 PM This order reflects the patients wishes and were consensually agreed upon. Question Answer Comments Discussion of Advance Directives occurred with: Patient Does the patient have a Living Will? No Does the patient have Health Care Power of Safety Officer? No Full Code 08/22/2017 8:14 PM 08/25/2017 7:18 PM Thi s order reflects the patients wishes and were consensually agreed upon. Question Answer Comments Discussion of Advance Directives occurred with: Patient/Family Does the patient have a Living Will? No Does the patient have Health Care Power of Safety Officer? No Care Teams Civil Engineering Designer Relationship Specialty Start Date End Date Avelina Douglas CRNP [address] [place] [address] PCP - General Nurse Practitioner 03/16/23 documented as of this encounter
--- OUTSIDE RECORDS SUMMARY | 2023-11-18 11:38 | External Medical Summary | Summary of Care ---
Author Name Unknown Organization [facility] Address [address] [place] [address] Phone [phone] Care Team Providers Care Machine Operator Hop Picker Name Role Phone Avelina Douglas EMILY Primary Care Provider Reason for Visit * Reason Comments IV Therapy Venofer 3/4 Encounter Details Date Type Department Care Team (Latest Contact Info) Description 11/03/2023 2:45 PM EST Hem/Onc Treatment Hematology/Oncology Treatment, [address] [address] [place], Chair 8 Hem Onc [address] [address] Iron deficiency anemia due to chronic blood loss* Allergies Active Allergy Reactions Criticality Noted Date Comments Levofloxacin Other (Please comment) 05/26/2017 Cramping pains Nitrofurantoin Nausea/vomiting,Othe r (Please comment) 08/26/2022 Dizziness Propofol Nausea/vomiting 01/03/2018 documented as of this encounter (statuses as of 11/03/2023) Medications Medication Sig Dispensed Refills Start Date [...] Active metFORMIN ER (GLUCOPHAGE XR) 500 MG [id number]:Di abetes mellitus type 2, insulin dependent (HCC) [...] as of this encounter (statuses as of 11/03/2023) Active Problems Problem Noted Date Diagnosed Date [...] as of this encounter (statuses as of 11/03/2023) Immunizations Name Administration Dates Next Due COVID-19 [...] Sign Reading Time Taken Comments Blood Pressure 148/77 11/03/2023 2:00 PM EST Pulse 74 11/03/2023 2:00 PM EST Temperature 36.8 C (98.3 F) 11/03/2023 2:00 PM ES T Respiratory Rate 16 11/03/2023 2:00 PM EST Oxygen Saturation 95% 11/03/2023 2:00 PM EST Inhaled Oxygen Concentration - - Weight [...] as of this encounter Nursing Notes * Concha Sun RN - 11/03/2023 4:10 PM EST Chair 1. IV inserted and CBCD drawn. Patient overall feeling well, said she was slightly SOB earlier but she felt like she was running late when the van was at her house to pick her up. Hgb 8.4 today. Safety and Risk for Injury Patient will remain free from injury. Ensure appropriate safety devices are available. Provide and maintain safe environment. Goals: Patient will remain free from injury. Possible barriers to meeting goals: ambulating with IV pole Stability of the patient: Moderately stable - low risk of patient condition declining or worsening Summary regarding today's goals: Met: pt remained free of harm today Patient tolerated treatment well without any acute issues or problems. Patient left facility in stable condition and denied any further needs. documented in this encounter Plan of Treatment Upcoming Encounters Date Type Department Care Team (Late st Contact Info) Description 11/10/2023 2:30 PM EDT Hem/Onc Treatment Hematology/Oncology Treatment, [address] [place] [address] 11/16/2023 9:45 AM EDT Office Visit Hematology/Oncology [address] [place] [address] Marko Calloway MD 200 [place] [address] 12/08/2023 10:00 AM EDT Laboratory Lab [place] [facility] [place] [address] [place] [address] [facility] [place] [facility] Home Draw [address] [place] [address] 12/11/2023 10:20 AM EDT Office Visit Urogynecology [address] [place] [address] Andrae Joaquin MD [address] [place] [address] [place], Nurse Urodynamics [address] [place] [address] 01/31/2024 8:30 AM EDT Office Visit Cardiology, [facility] [address] [place] [address] Darius Stuart PA-C [address] [place] [address] 07/01/2024 8:30 AM EST Cardiac Studies Cardiology, [facility] [address] [place] [address] [facility] [address] [place] [address] Health Maintenance Due Date Last Done Comments Depression Screening 1949 Albumin/Creatinine Ratio 1955 Diabetic Eye Exam 1955 DTaP,Tdap,and Td Vaccines (1 - Tdap) 1956 VITAMIN D LEVEL ONCE IN A LIFETIME-USE SMARTSET# 86557 1977 DXA Scan 1987 Diabetic Foot Exam 10/03/2018 10/03/2017 Influenza Vaccine (FLU shot) (#1) 2023 06/03/2022, 07/03/2017, 07/03/2017 HbA1c 04/28/2024 10/27/2023, 1202/2023, 05/04/2023, Additional history exists B-12 10/19/2024 10/19/2023, 08/26/2022 Pneumococcal Vaccine: 65+ Years Completed 08/12/2017, 10/03/2015 Zoster Vaccines Completed 07/31/2020, 100 09/2019, 09/02/2012 COVID-19 Vaccine Completed 06/09/2023, 02/2022, [...] this encounter Medical Devices Implanted Type Area Public Health Informatician Device Identifier Shelf Expiration Date Model / Serial / Lot Bard Peripheral Vascular Alyssa Vena Cava Filter Implanted:Qty: 1 on 08/23/2017 by Nato Singh DO [place] [facility] [place]domen 06/27/2020 [id number] / [id number] / [id number] Lens Li61ao 13.00mm 22.00 - [id number] - [id number] Implanted:Qty: 1 on 03/21/2023 by Augustine Duong MD at OR [facility] Left: Eye [employer] 11/26/2027 [id number] / [id number] / [id number] Lens Li61ao 13.00mm 22.00 - [id number] - [id number] Implanted:Qty: 1 on 04/04/2023 by Augustine Duong MD at OR [facility] Right: Eye [employer] 12/26/2027 [id number] / [id number] / [id number] documented as of this encounter Procedures Procedure Name Priority Date/Time Associated Diagnosis Comments DIFFERENTIAL, AUTOMATED Routine 11/03/2023 1:59 PM EST Iron deficiency anemia due to chronic blood loss CBC Routine 11/03/2023 1:59 PM EST Iron deficiency anemia due to chronic blood loss CBC Routine 11/03/2023 1:59 PM EST Iron deficiency anemia due to chronic blood loss documented in this encounter Results * (ABNORMAL) DIFFERENTIAL, AUTOMATED (11/03/2023 1:59 PM EST) WBC 6.67 4.00 - 10.80 K/uL 11/03/2023 2:27 PM EST [facility] 56-02 Neutrophils % 62.9 40.0 - 75.0 % 11/03/2023 2:27 PM EST [facility] 56- Lymphocytes % 20.7 18.0 - 42.0 % 11/03/2023 2:27 PM EST [facility] 56-02 Monocytes % 9.4 1.0 - 11.0 % 11/03/2023 2:27 PM EST [facility] 56- Eosinophils % 6.6(H) 0.0 - 6.0 % 11/03/2023 2:27 PM EST [facility] 56-02 Basophils % 0.4 0.0 - 2.0 % 11/03/2023 2:27 PM EST [facility] 56-02 Absolute Neutrophils 4.19 1.80 - 7.70 K/uL 11/03/2023 2:27 PM EST [facility] 56- Absolute Lymphocytes 1.38 1.00 - 4.80 K/ul 11/03/2023 2:27 PM EST [facility] 56- Absolute Monocytes 0.63 0.00 - 1.10 K/uL 11/03/2023 2:27 PM [facility] 56-02 Absolute Eosinophils 0.44 0.00 - 0.70 K/uL 11/03/2023 2:27 PM [facility] 56-02 Absolute Basophils 0.03 0.00 - 0.20 K/uL 11/03/2023 2:27 PM [facility] 56-02 Blood Venous blood specimen / Unknown Peripheral IV / Unknown 11/03/2023 1:59 PM EST 11/03/2023 2:24 PM EST Marko Calloway MD LAB BLOOD ORDERABLES [facility] 56- [address] [place] [address] * (ABNORMAL) CBC (11/03/2023 1:59 PM EST) WBC 6.67 4.00 - 10.80 K/uL 11/03/2023 2:27 PM EST [facility] 56- RBC 3.24 3.85 - 5.15 M/uL 11/03/2023 2:27 PM [facility] 56-02 HGB 8.4(L) 12.0 - 15.3 g/dL 11/03/2023 2:27 PM [facility] 56 HCT 29.7(L) 36.0 - 45.2 % 11/03/2023 2:27 PM [facility] 56 MCV 91.7 81.5 - 97.5 fL 11/03/2023 2:27 PM EST [facility] 56- MCH 25.9 27.0 - 34.0 pg 11/03/2023 2:27 PM EST [facility] 56 MCHC 28.3 32.0 - 36.0 g/dL 11/03/2023 2:27 PM EST [facility] 56- RDW 18.2 11.5 - 15.5 % 11/03/2023 2:27 PM [facility] 56 PLT 313 140 - 400 K/uL 11/03/2023 2:[address] MPV 9.6 6.6 - 11.1 fL 11/03/2023 2:27 PM [facility] 56 Blood Venous blood specimen / Unknown Peripheral IV / Unknown 11/03/2023 1:59 PM EST 11/03/2023 2:24 PM EST Marko Calloway MD LAB BLOOD ORDERABLES [facility] [address] [place] [address] documented in this encounter Visit Diagnoses Diagnosis Iron deficiency anemia due to chronic blood loss- Primary Iron deficiency anemia secondary to blood loss (chronic) documented in this encounter Administered Medications Active Administered Medications - up to 3 most recent administrations Medication Order MAR Action Action Date Dose Rate Site diphenhydrAMINE (Benadryl) inj 50 mg 50 mg, IV Push, ONCE PRN Other, Hypersensitivity Reaction, Starting on Mon11/03/23 at 1421, Until 11/04/23 at 1420, For 24 hours EPINEPHrine 1 MG/ML inj 0.3 mg 0.3 mg, Intramuscular, ONCE PRN Other, Hypersensitivity Reaction or Anaphylaxis, Starting on Mon11/03/23 at 1421, Until 11/04/23 at 1420, For 24 hours hEParin 100 UNIT/ML Lock Flush inj 500 Units 500 Units (5 mL), IV Lock, PRN Other, IV Flush, Starting on Mon11/03/23 at 1421, Until 11/04/23 at 1420, For 24 hours, Do not flush if lock, PICC, or central line not in place; IV infusing or unable to flush. Hydrocortisone Sod Suc (PF) (Solu-Cortef) inj 100 mg 100 mg, IV Push, ONCE PRN Other, Hypersensitivity Reaction, Starting on Mon11/03/23 at 1421, Until 11/04/23 at 1420, For 24 hours NSS infusion 500 mL, Intravenous, at 50 mL/hr, CONTINUOUS, Starting on Mon11/03/23 at 1530, Until 11/04/23 at 0129 Start Infusion 11/03/2023 2:16 PM EST 500 mL 50 mL/hr oxygen GAS Inhalation, OXYGEN, First dose on Mon11/03/23 at 1600, Until Discontinued, Device/Managed by: Low Flow Device, Goal SPO2 (%): 91-95, Starting Device: Nasal Cannula, Initial Flow Rate (LPM): 2, Lowest Support: Nasal Cannula: Flow 0-6 LPM. Titrate up/down by 1 LPM., Higher Support: Non-Rebreather (NRB) Mask: Minimum of 10 LPM. Titrate to maintain bag inflation., Titration Interval: Q2 minutes and as needed., Notify Provider: For sudden DECREASE in resting SPO2 to less than 85% and when escalating delivery device., Wean patient off Oxygen when the oxygen saturation is greater than or equal to 93% sodium chloride 0.9 % flush central line 10 mL 10 mL, IV Push, PRN Other, IV Flush, Starting on Mon11/03/23 at 1421, Until 11/04/23 at 1420, For 24 hours, Do not flush if lock, PICC, or central line not in place; IV infusing or unable to flush. Inactive Administered Medications - up to 3 most recent administrations Medication Order MAR Action Action Date Dose Rate Site Iron Sucrose (Venofer) 300 mg in NSS 250 mL ivpb 300 mg, IV Piggyback, ONCE, 1 dose, On Mon11/03/23 at 1600, Administer over 90 Minutes Start Infusion 11/03/2023 2:16 PM EST 300 mg 166.67 mL/hr documented in this encounter Advance Directives [...] the patient have Health Care Power of Knock Out Hand? No Code Status History Code Status Date Activated Date Inactivated Comments Full Code 08/27/2017 9:48 PM 09/04/2017 4:13 PM This order reflects the patients wishes and were consensually agreed upon. Question Answer Comments Discussion of Advance Directives occurred with: Patient Does the patient have a Living Will? No Does the patient have Health Care Power of Knock Out Hand? No Full Code 08/22/2017 8:14 PM 08/25/2017 7:18 PM Thi s order reflects the patients wishes and were consensually agreed upon. Question Answer Comments Discussion of Advance Directives occurred with: Patient/Family Does the patient have a Living Will? No Does the patient have Health Care Power of Knock Out Hand? No Care Teams Machine Operator Hop Picker Relationship Specialty Start Date End Date Avelina Douglas CRNP [address] [place] [id number] PCP - General Nurse Practitioner 03/16/23 documented as of this encounter
--- OUTSIDE RECORDS SUMMARY | 2023-11-18 11:38 | External Medical Summary ---
Author Name Unknown Address Unknown Organization K01[facility] [address] [place] [address] Laboratory Report Ordering Provider Test Date Status BRENDA RAMSEY 11/16/2023 08:42:20 Final Observation Date Value Abnormality Reference (Units ) Status Retic, % (auto) 11/16/2023 08:42:20 4.42 Above high normal 0.80-1.90 (%) Final Reticulocytes, Absolute 11/16/2023 08:42:20 160.4 Above high normal 31.3-100.1 (K/uL) Final Reticulocyte fraction, immature 11/16/2023 08:42:20 25.2 Above high normal 2.5-20.6 (%) Final Reticulocyte HGB 11/16/2023 08:42:20 31.6 29.7-37.4 (pg) Final Performing Location [facility] [place] [facility] [place] [address]
--- OUTSIDE RECORDS SUMMARY | 2023-11-18 11:38 | External Medical Summary ---
Author Name Unknown Address Unknown Organization K09:[facility] [place] [address] Laboratory Report Ordering Provider Test Date Status BRENDA RAMSEY 11/03/2023 13:59:33 Final While on Venofer weekly. Observation Date Value Abnormality Reference (Units ) Status WBC, Total 11/03/2023 13:59:33 6.67 4.00-10.8 0 (K/uL) Final RBC 11/03/2023 13:59:33 3.24 3.85-5.15 (M/uL) Final Hemoglobin 11/03/2023 13:59:33 8.4 Below low normal 12 .0-15.3 (g/dL) Final HCT 11/03/2023 13:59:33 29.7 Below low normal 36. 0-45.2 (%) Final MCV 11/03/2023 13:59:33 91.7 81.5-97.5 (fL) Final MCH 11/03/2023 13:59:33 25.9 27.0-34.0 (pg) Final MCHC 11/03/2023 13:59:33 28.3 32.0-36.0 (g/dL) Final RDW 11/03/2023 13:59:33 18.2 11.5-15.5 (%) Final Platelets 11/03/2023 13:59:33 313 140-400 (K /uL) Final MPV 11/03/2023 13:59:33 9.6 6.6-11.1 ( fL) Final Performing Location [facility] [place] [address]
--- OUTSIDE RECORDS SUMMARY | 2023-11-18 11:38 | External Medical Summary | Summary of Care ---
Author Name Unknown Organization [facility] Address [address] [facility] [address] Phone [phone] Care Team Providers Care Technology Program Manager Name Role Phone Avelina Douglas EMILY Primary Care Provider Reason for Visit * Reason Comments IV Therapy Venofer Encounter Details Date Type Department Care Team (Latest Contact Info) Description 11/10/2023 2:30 PM EDT Hem/Onc Treatment Hematology/Oncology Treatment, [address] [address] [place], Chair 4 Hem On[address] [address] Iron deficiency anemia due to chronic blood [...] Active metFORMIN ER (GLUCOPHAGE XR) 500 MG [id number]:Di abetes mellitus type 2, insulin dependent (HCC) [...] Sign Reading Time Taken Comments Blood Pressure 167/72 11/10/2023 2:12 PM EDT Pulse 87 11/10/2023 2:12 PM EDT Temperature 36.4 C (97.5 F) 11/10/2023 2:12 PM E DT Respiratory Rate 18 11/10/2023 2:12 PM EDT Oxygen Saturation 93% 11/10/2023 2:12 PM EDT Inhaled Oxygen Concentration - - Weight - [...] as of this encounter Nursing Notes * Cheli Landry RN - 11/10/2023 4:19 PM EDT Goals: Patient will remain free from injury. Possible barriers to meeting goals: ambulation with IV pole, use of wheeled walker, fatigue Stability of the patient: Moderately unstable - medium risk of patient condition declining or worsening Summary regarding today's goals: Met: Pt remained free of injury during treatment Patient tolerated treatment well and was discharged in stable condition. No coverage needed today. * Cheli Landry RN - 11/10/2023 3:05 PM EDT Chair 6 [facility] with wheeled walker. She states she's always tired but continuesto try and do as much as possible. She denies any acute complaints. IV started in the left AC without difficulty, good blood return noted, flushed with NSS, fluids infusing. Safety and Risk for Injury Patient will remain free from injury. Ensure appropriate safety devices are available. Provide and maintain safe environment. documented in this encounter Plan of Treatment Upcoming Encounters Date Type Department Care Team (Late st Contact Info) Description 11/16/2023 9:45 AM EDT Office Visit Hematology/Oncology [facility] [place] [address] [facility] [place] [address] Marko Calloway MD [address] [facility] [place] [address] 12/08/2023 10:00 AM EDT Laboratory Lab [place] Phlebotomy [facility] [place] [address] [place] [address] [facility] [place], [facility] Mobile Home Draw [address] [place] [address] 12/11/2023 10:20 AM EDT Office Visit Urogynecology [facility] [address] [place] [address] Andrae Joaquin MD [address] [place] [address] [place], Nurse Urodynamics [address] [place] [address] 01/31/2024 8:30 AM EDT Office Visit Cardiology, [facility] [address] [place] [address] Darius Stuart PA-C [address] [place] [address] 07/01/2024 8:30 AM EST Cardiac Studies Cardiology, [facility] [address] [place] [address] [facility] [address] [place] [address] Health Maintenance Due Date Last Done Comments Depression Screening 1947 Albumin/Creatinine Ratio 1955 Diabetic Eye Exam 1955 DTaP,Tdap,and Td Vaccines (1 - Tdap) 1956 VITAMIN D LEVEL ONCE IN A LIFETIME-USE SMARTSET# [id number] 1977 DXA Scan 1987 Diabetic Foot Exam [...] this encounter Medical Devices Implanted Type Area Chinchilla Machine Operator Device Identifier Shelf Expiration Date Model / Serial / Lot Bard Peripheral Vascular Alyssa Vena Cava Filter Implanted:Qty: 1 on 08/23/2017 by Nato Singh DO at [place] [facility] [place] Abdomen 06/27/2020 [id number] / [id number] / [id number] Lens Li61ao 13.00mm 22.00 - [id number] - [id number] Implanted:Qty: 1 on 03/21/2023 by Augustine Duong MD at OR [facility] Left: Eye [employer] 11/26/2027 [id number] / [id number] / [id number] Lens Li61ao 13.00mm 22.00 - [id number] - [id number] Implanted:Qty: 1 on 04/04/2023 by Augustine Duong MD at [facility] Right: Eye [employer]OMB 12/26/2027 [id number] / [id number] / [id number] documented as of this encounter Procedures Procedure Name Priority Date/Time Associated Diagnosis Comments DIFFERENTIAL, AUTOMATED Routine 11/10/2023 2:20 PM EDT Iron deficiency anemia due to chronic blood loss CBC Routine 11/10/2023 2:20 PM EDT Iron deficiency anemia due to chronic blood loss CBC Routine 11/10/2023 2:20 PM EDT Iron deficiency anemia due to chronic blood loss documented in this encounter Results * DIFFERENTIAL, AUTOMATED (11/10/2023 2:20 PM EDT) WBC 6.74 4.00 - 10.80 K/uL 11/10/2023 2:42 PM EDT [facility] 56-02 Neutrophils % 65.9 40.0 - 75.0 % 11/10/2023 2:42 PM EDT [facility] 56-02 Lymphocytes % 19.4 18.0 - 42.0 % 11/10/2023 2:42 PM EDT [facility] 56-02 Monocytes % 9.1 1.0 - 11.0 % 11/10/2023 2:42 PM EDT [facility] 56-02 Eosinophils % 5.5 0.0 - 6.0 % 11/10/2023 2:42 PM EDT [facility] 56-02 Basophils % 0.1 0.0 - 2.0 % 11/10/2023 2:42 PM EDT [facility] 56-02 Absolute Neutrophils 4.44 1.80 - 7.70 K/uL 11/10/2023 2:42 PM EDT [facility] 56-02 Absolute Lymphocytes 1.31 1.00 - 4.80 K/ul 11/10/2023 2:42 PM EDT [facility] 56-02 Absolute Monocytes 0.61 0.00 - 1.10 K/uL 11/10/2023 2:42 PM EDT [facility] 56-02 Absolute Eosinophils 0.37 0.00 - 0.70 K/uL 11/10/2023 2:42 PM EDT [facility] 56-02 Absolute Basophils 0.01 0.00 - 0.20 K/uL 11/10/2023 2:42 PM EDT [facility] 56-02 Blood Venous blood specimen / Unknown Venipuncture / Unknown 11/10/2023 2:20 PM EDT 11/10/2023 2:39 PM EDT Marko Calloway MD LAB BLOOD ORDERABLES [facility] 56-[address] [place] [id number] * (ABNORMAL) CBC (11/10/2023 2:20 PM EDT) Pathologist [facility] WBC 6.74 4.00 - 10.80 K/uL 11/10/2023 2:42 PM EDT [facility] 56- RBC 3.18 3.85 - 5.15 M/uL 11/10/2023 2:42 PM EDT [facility] 56- HGB 8.3(L) 12.0 - 15.3 g/dL 11/10/2023 2:42 PM EDT [facility] 56- HCT 29.6(L) 36.0 - 45.2 % 11/10/2023 2:42 PM EDT [facility] 56 MCV 93.1 81.5 - 97.5 fL 11/10/2023 2:42 PM EDT [facility] 56 MCH 26.1 27.0 - 34.0 pg 11/10/2023 2:42 PM EDT [facility] 56 MCHC 28.0 32.0 - 36.0 g/dL 11/10/2023 2:42 PM EDT [facility] 56 RDW 19.9 11.5 - 15.5 % 11/10/2023 2:42 PM EDT [facility] 56 PLT 273 140 - 400 K/uL 11/10/2023 2:42 PM EDT [facility] 56 MPV 9.1 6.6 - 11.1 fL 11/10/2023 2:42 PM EDT [facility] 56 Blood Venous blood specimen / Unknown Venipuncture / Unknown 11/10/2023 2:20 PM EDT 11/10/2023 2:39 PM EDT Marko Calloway MD LAB BLOOD ORDERABLES [facility] 56- [address] [place] [address] documented in this encounter Visit Diagnoses Diagnosis [...] ONCE PRN Other, Hypersensitivity Reaction, Starting on Mon11/10/23 at 1430, Until 11/11/23 at 1429, For 24 hours EPINEPHrine 1 MG/ML inj 0.3 mg 0.3 mg, Intramuscular, ONCE PRN Other, Hypersensitivity Reaction or Anaphylaxis, Starting on Mon11/10/23 at 1430, Until 11/11/23 at 1429, For 24 hours hEParin 100 UNIT/ML Lock Flush inj 500 Units 500 Units (5 mL), IV Lock, PRN Other, IV Flush, Starting on Mon11/10/23 at 1430, Until 11/11/23 at 1429, For 24 hours, Do not flush if lock, PICC, or central line not in place; IV infusing or unable to flush. Hydrocortisone Sod Suc (PF) (Solu-Cortef) inj 100 mg 100 mg, IV Push, ONCE PRN Other, Hypersensitivity Reaction, Starting on Mon11/10/23 at 1430, Until 11/11/23 at 1429, For 24 hours NSS infusion 500 mL, Intravenous, at 50 mL/hr, CONTINUOUS, Starting on Mon11/10/23 at 1545, Until 11/11/23 at 0144 Start Infusion 11/10/2023 2:20 PM EDT 500 mL 50 mL/hr oxygen GAS Inhalation, OXYGEN, First dose on Mon11/10/23 at 1600, Until Discontinued, Device/Managed by: Low [...] Push, PRN Other, IV Flush, Starting on Mon11/10/23 at 1430, Until 11/11/23 at 1429, For 24 hours, Do not flush if lock, PICC, or central line not in place; IV infusing or unable to flush. Inactive Administered Medications - up to 3 most recent administrations Medication Order MAR Action Action Date Dose Rate Site Iron Sucrose (Venofer) 300 mg in NSS 250 mL ivpb 300 mg, IV Piggyback, ONCE, 1 dose, On Mon11/10/23 at 1615, Administer over 90 Minutes Start Infusion 11/10/2023 2:31 PM EDT 300 mg 166.67 mL/hr documented in this [...] the patient have Health Care Power of Podiatrist Orthopedic? No Code Status History Code Status Date Activated Date Inactivated Comments Full Code 08/27/2017 9:48 PM 09/04/2017 4:13 PM This order reflects the patients wishes and were consensually agreed upon. Question Answer Comments Discussion of Advance Directives occurred with: Patient Does the patient have a Living Will? No Does the patient have Health Care Power of Podiatrist Orthopedic? No Full Code 08/22/2017 8:14 PM 08/25/2017 7:18 PM Thi s order reflects the patients wishes and were consensually agreed upon. Question Answer Comments Discussion of Advance Directives occurred with: Patient/Family Does the patient have a Living Will? No Does the patient have Health Care Power of Podiatrist Orthopedic? No Care Teams Technology Program Manager Relationship Specialty Start Date End Date Avelina Douglas CRNP [address] [place] [id number] PCP - General Nurse Practitioner 03/16/23 documented as of this encounter
--- OUTSIDE RECORDS SUMMARY | 2023-11-18 11:38 | External Medical Summary ---
Author Name Unknown Address Unknown Organization [id number]:[facility] [place] [address] Laboratory Report Ordering Provider Test Date Status BRENDA RAMSEY 11/10/2023 14:20:00 Final While on Venofer weekly. Observation Date Value Abnormality Reference (Units ) Status SYNC LEUKOCYTES IN BLOOD BY AUTOMATED COUNT 11/10/2023 14:20:00 6.74 4.00-10.80 (K/uL) Final Segs 11/10/2023 14:20:00 65.9 40.0-75.0 (%) Final Lymphs % 11/10/2023 14:20:00 19.4 18.0-42.0 (%) Final Monos 11/10/2023 14:20:00 9.1 1.0-11.0 (%) Final Eosinophils 11/10/2023 14:20:00 5.5 0.0-6.0 (%) Final Basos 11/10/2023 14:20:00 0.1 0.0-2.0 (%) Final Absolute Segs 11/10/2023 14:20:00 4.44 1.80-7.70 (K/uL) Final Lymphs, absolute 11/10/2023 14:20:00 1.31 1.00-4.80 (K/ul) Final Monos, Abs 11/10/2023 14:20:00 0.61 0.00-1.10 (K/uL) Final Eos, Abs 11/10/2023 14:20:00 0.37 0.00-0.70 (K/uL) Final Basos, Abs 11/10/2023 14:20:00 0.01 0.00-0.20 (K/uL) Final Performing Location [facility] [place] [address]
--- OUTSIDE RECORDS SUMMARY | 2023-11-18 11:38 | External Medical Summary ---
Author Name Unknown Address Unknown Organization K09:[facility] [place] [address] Laboratory Report Ordering Provider Test Date Status BRENDA RAMSEY 11/16/2023 08:42:20 Final Observation Date Value Abnormality Reference (Units ) Status WBC, Total 11/16/2023 08:42:20 8.68 4.00-10.8 0 (K/uL) Final RBC 11/16/2023 08:42:20 3.65 3.85-5.15 (M/uL) Final Hemoglobin 11/16/2023 08:42:20 9.8 Below low normal 12 .0-15.3 (g/dL) Final HCT 11/16/2023 08:42:20 34.4 Below low normal 36. 0-45.2 (%) Final MCV 11/16/2023 08:42:20 94.2 81.5-97.5 (fL) Final MCH 11/16/2023 08:42:20 26.8 27.0-34.0 (pg) Final MCHC 11/16/2023 08:42:20 28.5 32.0-36.0 (g/dL) Final RDW 11/16/2023 08:42:20 20.4 11.5-15.5 (%) Final Platelets 11/16/2023 08:42:20 346 140-400 (K /uL) Final MPV 11/16/2023 08:42:20 9.3 6.6-11.1 ( fL) Final Performing Location [facility] [place] [address]
--- OUTSIDE RECORDS SUMMARY | 2023-11-18 11:39 | External Medical Summary | Summary of Care ---
Author Name Unknown Organization [facility] Address [address] [facility] [place] [address] Phone [phone] Care Team Providers Care Produce Shipper Name Role Phone Avelina Douglas EMILY Primary Care Provider Reason for Visit * Reason Comments Follow Up Encounter Details Date Type Department Care Team (Late st Contact Info) Description 10/09/2023 1:15 PM EST Office Visit Urogynecology Lisandro eWtzel [address] [place] [address] Andrae Joaquin MD [address] [place] [id number] Nurse Ayaan Wetzel [address] [place] [address] OAB (overactive bladder)*; Urge incontinence Allergies Active Allergy Reactions Criticality Noted Date Comments Levofloxacin Other (Please comment) 05/26/2017 Cramping pains Nitrofurantoin Nausea/vomiting,Othe r (Please comment) 08/26/2022 Dizziness Propofol Nausea/vomiting 01/03/2018 documented as of this encounter (statuses as of 10/09/2023) Medications Medication Sig Dispensed Refills Start Date [...] Active insulin aspart (INSULIN ASPART) 100 UNIT/ML injectionIndicati ons:Diabetes mellitus type 2, insulin dependent (HCC) Inject under skin per sliding scale 2 Vial 5 10/12/2017 Active apixaban (ELIQUIS) 5 MG TabletIndications :Chronic atrial fibrillation (HCC),Other acute pulmonary embolism without acute cor pulmonale (HCC) Take 1 Tab by mouth 2 times a day. 60 Tab 5 10/31/2017 Active LANTUS SOLOSTAR 100 UNIT/ML SOPNIndications:D iabetes mellitus type 2, insulin dependent (HCC) Inject 16 Units under the skin in the morning. 1 Pre-filled Pen Syringe Dosing Unit 5 12/13/2017 Active metFORMIN ER (GLUCOPHAGE XR) 500 MG [id number]:D iabetes mellitus type 2, insulin dependent (HCC) Take 2 Tabs by mouth daily. 60 Tab 11 12/13/2017 Active Additional Information Patient taking differently: 500 mgOralBID (.AM/PM), Reported on 08/26/2022 loperamide (IMODIUM) 2 MG CapsuleIndication s:Diarrhea, unspecified type Take 1 Cap by mouth [...] mouth in the morning. 0 12/10/2021 Active hydroCHLOROthiazi de 25 MG Oral Tablet (Hydrodiuril) Take one tablet 2-3 days per week for edema, HTN 36 Tablet 3 02/01/2022 Active Ondansetron HCl 4 MG Oral Tablet (Zofran) Take 1 Tablet by mouth as needed. 0 08/05/2022 Active Solifenacin Succinate 5 MG Oral Tablet (VESIcare) Take 1 Tablet by mouth in the morning. 90 Tablet 3 01/13/2023 Active Losartan Potassium 25 MG Oral Tablet (Cozaar)Indicatio ns:Paroxysmal atrial fibrillation (HCC),Essential hypertension TAKE 1 TABLET BY MOUTH DAILY 90 Tablet 3 05/02/2023 Active Gemtesa 75 MG Oral Tablet Take 1 Tablet by mouth in the morning. 90 Tablet 3 04/28/2023 Active Iron-Vitamin C 65-125 MG Oral Tablet (Vitron C)Indications:Ane josias, unspecified type TAKE 1 TABLET BY MOUTH [...] Additional Information Patient not taking.Reported on 10/09/2023 Cephalexin 500 MG Oral Capsule (Keflex) Take 1 Capsule by mouth in the morning and 1 Capsule before bedtime. Do all this for 2 doses. Until gone.. 2 Capsule 0 10/09/2023 4 Active Estradiol 0.1 MG/GM Vaginal Cream (Estrace) Apply pea sized amount (0.5 mg) vaginally every other night at bedtime 42.5 g 3 10/09/2023 Active Estradiol 0.1 MG/GM Vaginal Cream (Estrace) Apply pea sized amount (0.5 mg) vaginally every other night at bedtime 42.5 g 3 02/15/2023 4 Discontinue d(Refill) documented as of this encounter (statuses as of 10/09/2023) Active Problems Problem Noted Date Diagnosed Date Hyperthyroidism 06/02/2021 Hematoma of right iliopsoas muscle [...] as of this encounter (statuses as of 10/09/2023) Immunizations Name Administration Dates Next Due COVID-19 [...] Date Smoking Tobacco: Never Smokeless Tobacco: Never Tobacco Cessation:Counseling Given: Not Answered Alcohol Use Standard Drinks/Week Comments No 1 [...] Sign Reading Time Taken Comments Blood Pressure 90/62 10/09/2023 1:01 PM EST Pulse - - Temperature - - Respiratory Rate - - Oxygen Saturation - - Inhaled Oxygen Concentration - - Weight - [...] as of this encounter Progress Notes * Andrae Joaquin MD - 10/09/2023 1:22 PM EST Anastasiia Aponte presents for a follow up visit at [facility]. She was previously seen for N32.81 OAB (overactive bladder) (primary encounter diagnosis) N39.41 Urge incontinence Since last seen, she had good response to the Botox injection in March 2023. Now her symptoms are returning Urinary: 3 urge incontinence episodes daily. Nocturia several times a night. She would like to schedule office botox cystoscopy She would also like a renewal on her estrogen cream as this helped with the vaginal itching in the past. Allergies: Review of patient's allergies indicates: Allergen Reactions Levaquin [Levofloxacin] Other (Please comment) Cramping pains Nitrofurantoin Monohydrate [Nitrofurantoin] Nausea/vomiting and Other (Please comment) Dizziness Propofol Nausea/vomiting Active Medications: Current Outpatient Medications Medication Sig Dispense Refill atorvaSTATin (LIPITOR) 20 MG Tablet Take 1 Tablet by mouth in the morning. 30 Tab 5 insulin aspart (INSULIN ASPART) 100 UNIT/ML injection Inject under skin per sliding scale 2 Vial 5 apixaban (ELIQUIS) 5 MG Tablet Take 1 Tab by mouth 2 times a day. 60 Tab 5 metFORMIN ER (GLUCOPHAGE XR) 500 MG TB24 Take 2 Tabs by mouth daily. (Patient taking differently: Take 1 Tablet by mouth in the morning and 1 Tablet before bedtime.) 60 Tab 11 ALPRAZolam (XANAX) 0.25 MG Tablet One pill at bedtime for anxiety 30 Tab 0 methimazole (TAPAZOLE) 5 MG Tablet Take 2 Tablets by mouth once a day on Monday, Monday, Monday, and only. Escitalopram Oxalate 20 MG Oral Tablet (Lexapro) Take 1 Tablet by mouth in the morning. hydroCHLOROthiazide 25 MG Oral Tablet (Hydrodiuril) Take one tablet 2-3 days per week for edema, HTN 36 Tablet 3 Solifenacin Succinate 5 MG Oral Tablet (VESIcare) [...] 1 Tablet before bedtime. 180 Tablet 3 Cephalexin 500 MG Oral Capsule (Keflex) Take 1 Capsule by mouth in the morning and 1 Capsule beforebedtime. Do all this for 2 doses. Until gone.. 2 Capsule 0 Estradiol 0.1 MG/GM Vaginal Cream (Estrace) Apply pea sized amount (0.5 mg) vaginally every other night at bedtime 42.5 g 3 acetaminophen (TYLENOL) 500 MG Tablet Take 1 Tablet by mouth every 6 hours as needed for Pain. Dextrose, Diabetic Use, (GLUCOSE) 15 GM/33GM GEL Take by mouth. (Patient not taking: Reported on 07/17/2023) LANTUS SOLOSTAR 100 UNIT/ML SOPN Inject 16 Units under the skin in the morning. 1 Pre-filled Pen Syringe Dosing Unit 5 loperamide (IMODIUM) 2 MG Capsule Take 1 Cap by mouth 4 times a day as needed for Diarrhea. (Patient not taking: Reported on 07/17/2023) 30 Cap 4 Loratadine 10 MG Oral Tablet (Claritin) Take 1 Tablet by mouth in the morning. (Patient not taking:Reported on 07/17/2023) Ondansetron HCl 4 MG Oral Tablet (Zofran) Take 1 Tablet by mouth as needed. (Patient not taking: Reported on 07/17/2023) Fluconazole 150 MG Oral Tablet (Diflucan) Take 1 Tablet by mouth once a week. (Patient not taking: Reported on 10/09/2023) 4 Tablet 0 No current facility-administered medications for this visit. ROS: No Change since previous visit Results for orders placed or performed in visit on 09/14/23 CULTURE, URINE, QUANTITATIVE Specimen: Urine, Clean Catch Result Value Ref Range Culture Growth 10,000 to 100,000 colonies/mL Escherichia coli (A) Culture Growth (A) 10,000 to 100,000 colonies/mL - second type Escherichia coli Susceptibility Escherichia coli - MICROBROTH DILUTIONS Ampicillin Susceptible Cefazolin Susceptible Cefepime Susceptible Ceftriaxone Susceptible Ciprofloxacin* Susceptible * Due to serious side effects, the FDA has advised against using Ciprofloxacin to treat uncomplicated UTIs and respiratory tract infections unless there are no alternative treatment options. Gentamicin Susceptible Nitrofurantoin Susceptible Piperacillin Tazobactam Susceptible Trimeth/Sulfamethoxazole Susceptible Escherichia coli - MICROBROTH DILUTIONS Ampicillin Resistant Ampicillin/Sulbactam Susceptible Cefazolin Susceptible Cefepime Susceptible Ceftriaxone Susceptible Ciprofloxacin* Resistant * Due to serious side effects, the FDA has advised against using Ciprofloxacin to treat uncomplicated UTIs and respiratory tract infections unless there are no alternative treatment options. Gentamicin Susceptible Levofloxacin* Intermediate * Due to serious side effects, the FDA has advised against using Levofloxacin to treat uncomplicated UTIs and respiratory tract infections unless there are no alternative treatment options. Nitrofurantoin Susceptible Piperacillin Tazobactam Susceptible Trimeth/Sulfamethoxazole Resistant Impression: This is a 88 year old with OAB (overactive bladder) (Primary) Urge incontinence Other orders - Cephalexin 500 MG Oral Capsule (Keflex); Take 1 Capsule by mouth in the morning and 1 Capsule before bedtime. Do all this for 2 doses. Until gone.. - Estradiol 0.1 MG/GM Vaginal Cream (Estrace); Apply pea sized amount (0.5 mg) vaginally every other night at bedtime Failed Gemtesa and Myrbetriq. Had good response to the Botox six months ago. Would like to scheduleBotox cystoscopy in the office. Risks of infection, bleeding, injury, urinary retention were reviewed. All questions answered. Keflex prophylaxis for the procedure was prescribed Will renew the estrace vaginal cream for atrophy. All questions answered. I spent a total of 20 minutes on the date of service in preparation, delivery, and documentation ofthe care provided to Anastasiia Aponte excluding any time spent in the performance of separately billed services. Andrae Joaquin MD 10/09/2023 1:22 PM documented in this encounter Nursing Notes * Tory Valdes MED ASSIST - 10/09/2023 1:06 PM EST Patient presents to the clinic today for a follow up. Has yeast infection- itching since finishing an antibiotic. Has not used but will restart her estradiol cream. documented in this encounter Plan of Treatment Upcoming Encounters Date Type Department Care Team (Late st Contact Info) Description 01/31/2024 8:30 AM EDT Office Visit Cardiology, [facility] [address] [place] [address] Darius Stuart PA-C [address] [place] [id number] 07/01/2024 8:30 AM EST Cardiac Studies Cardiology, [facility] [email or web address] [place] [address] [facility] [address] [place] [address] Health Maintenance Due Date Last Done Comments Depression Screening 1947 Albumin/Creatinine Ratio 1955 Diabetic Eye Exam 1955 DTaP,Tdap,and Td Vaccines (1 - Tdap) 1956 VITAMIN D LEVEL ONCE IN A LIFETIME-USE SMARTSET# 26571 1977 DXA Scan 1987 Hepatitis B (1 of 3 - Risk 3-dose series) 1997 Diabetic Foot Exam 10/03/2018 10/03/2017 Influenza Vaccine (FLU shot) (#1) 2023 06/03/2022, 07/03/2017, 07/03/2017 B-12 08/26/2023 08/26/2022 HbA1c 02/02/2024 2023, 02/2023, 11/10/2022, Additional history exists Pneumococcal Vaccine: 65+ Years Completed 08/12/2017, 10/03/2015 Zoster Vaccines Completed 07/31/2020, 09/2019, 09/02/2012 COVID-19 Vaccine Completed 06/09/2023, 02/2022, 05/10/2021, Additional history exists GARDASIL-HPV IMMUNIZATION SERIES Aged Out No longer eligible based on patient's age to complete this topic MENINGOCOCCAL (MENACTRA/MENVEO) Aged Out No longer eligible based on patient's age to complete this topic documented as of this encounter Medical Devices Implanted Type Area Animal Ecologist Device Identifier Shelf Expiration Date Model / Serial / Lot Bard Peripheral Vascular Alyssa Vena Cava Filter Implanted:Qty: 1 on 08/23/2017 by Nato Singh DO at [facility] Abdomen 06/27/2020 [id number] / [id number] / [id number] Lens Li61ao 13.00mm 22.00 - [id number] - [id number] Implanted:Qty: 1 on 03/21/2023 by Augustine Duong MD at OR [facility] Left: Eye [employer] 11/26/2027 [id number] / [id number] / [id number] Lens Li61ao 13.00mm 22.00 - [id number] - [id number] Implanted:Qty: 1 on 04/04/2023 by Augustine Duong MD at OR [facility] Right: Eye [employer]OM[employer] 12/26/2027 [id number] / [id number] / [id number] documented as of this encounter Visit Diagnoses Diagnosis OAB (overactive bladder)- Primary Hypertonicity of bladder Urge incontinence documented in this encounter Advance Directives Latest Code Status on File Code Status Date Activated Date Inactivated Comments No Code 03/21/2023 10:19 AM 03/21/2023 4:27 PM This order reflects the patients wishes and were consensually agreed upon. Question Answer Comments Discussion of Advance Directives occurred with: Patient Does the patient have a Living Will? No Does the patient have Health Care Power of Commissioner Conservation Of Resources? No Code Status History Code Status Date Activated Date Inactivated Comments Full Code 08/27/2017 9:48 PM 09/04/2017 4:13 PM This order reflects the patients wishes and were consensually agreed upon. Question Answer Comments Discussion of Advance Directives occurred with: Patient Does the patient have a Living Will? No Does the patient have Health Care Power of Commissioner Conservation Of Resources? No Full Code 08/22/2017 8:14 PM 08/25/2017 7:18 PM Thi s order reflects the patients wishes and were consensually agreed upon. Question Answer Comments Discussion of Advance Directives occurred with: Patient/Family Does the patient have a Living Will? No Does the patient have Health Care Power of Commissioner Conservation Of Resources? No Care Teams Produce Shipper Relationship Specialty Start Date End Date Avelina Douglas CRNP [address] [address] PCP - General Nurse Practitioner 03/16/23 documented as of this encounter
--- OUTSIDE RECORDS SUMMARY | 2023-11-18 11:39 | External Medical Summary ---
Author Name Unknown Address Unknown Organization K09:[facility] [address] [place] [address] Laboratory Report Ordering Provider Test Date Status BRENDA RAMSEY 10/27/2023 14:44:41 Final While on Venofer weekly. Observation Date Value Abnormality Reference (Units ) Status SYNC LEUKOCYTES IN BLOOD BY AUTOMATED COUNT 10/27/2023 14:44:41 8.80 4.00-10.80 (K/uL) Final Neutrophils/100 leukocytes in Blood by Manual count 10/27/2023 14:44:41 63.0 40.0-75.0 (%) Final Lymphocytes/100 leukocytes in Blood by Manual count 10/27/2023 14:44:41 21.0 18.0-42.0 (%) Final Monocytes/100 leukocytes in Blood by Manual count 10/27/2023 14:44:41 10.0 1.0-11.0 (%) Final Eosinophils/100 leukocytes in Blood by Manual count 10/27/2023 14:44:41 6.0 0.0-6.0 (%) Final Neutrophils [#/volume] in Blood by Manual count 10/27/2023 14:44:41 5.54 1.80-7.70 (K/uL) Final Lymphocytes [#/volume] in Blood by Manual count 10/27/2023 14:44:41 1.85 1.00-4.80 (K/uL) Final Monocytes [#/volume] in Blood by Manual count 10/27/2023 14:44:41 0.88 0.00-1.10 (K/uL) Final Eosinophils [#/volume] in Blood by Manual count 10/27/2023 14:44:41 0.53 0.00-0.70 (K/uL) Final Nucleated erythrocytes/100 leukocytes [Ratio] in Blood by Automated count 10/27/2023 14:44:41 Final Performing Location [facility] [place] [address]
--- OUTSIDE RECORDS SUMMARY | 2023-11-18 11:39 | External Medical Summary | Summary of Care ---
Author Name Unknown Organization [facility] Address [address] [place] [place] [facility] [place] [address] Phone [phone] Care Team Providers Care Agile Project Manager Name Role Phone Avelina Douglas Javier EMILY Primary Care Provider Reason for Visit * Reason Comments IV Therapy Venofer. 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); Disorder of thyroid Allergies Active Allergy Reactions Criticality Noted Date Comments Levofloxacin Other (Please comment) 05/26/2017 Cramping pains Nitrofurantoin Nausea/vomiting,Othe r (Please comment) 08/26/2022 Dizziness Propofol Nausea/vomiting 01/03/2018 documented as of this encounter (statuses as of 10/27/2023) Medications Medication Sig Dispensed Refills Start Date [...] Active metFORMIN ER (GLUCOPHAGE XR) 500 MG [id number]:Di abetes mellitus type 2, insulin dependent (HCC) [...] as of this encounter (statuses as of 10/27/2023) Active Problems Problem Noted Date Diagnosed Date [...] as of this encounter (statuses as of 10/27/2023) Immunizations Name Administration Dates Next Due COVID-19 [...] Sign Reading Time Taken Comments Blood Pressure 124/84 10/27/2023 2:30 AM EST Pulse 61 10/27/2023 2:30 AM EST Temperature 36.7 C (98.1 F) 10/27/2023 2:30 AM ES T Respiratory Rate 18 10/27/2023 2:30 AM EST Oxygen Saturation 93% 10/27/2023 2:30 AM EST Inhaled Oxygen Concentration - - [...] Nursing Notes * Ignacia Cabello RN - 10/27/2023 4:15 PM EST Goals: Patient will remain free from injury. Possible barriers to meeting goals: Fall risk d/t ambulation with IV pole. Stability of the patient: Moderately stable - low risk of patient condition declining or worsening Summary regarding today's goals: Met: Patient remained free of injury. Patient tolerated infusion well. Discharged in stable condition. * Ignacia Cabello RN - 10/27/2023 2:49 PM EST Chair 1. Patient arrived for venofer infusion with no acute complaints. PIV established, labs drawn. Safety and Risk for Injury Patient will remain free from injury. Ensure appropriate safety devices are available. Provide and maintain safe environment. documented in this encounter Plan of Treatment Upcoming Encounters Date Type Department Care Team (Late st Contact Info) Description 11/03/2023 2:45 PM EST Hem/Onc Treatment Hematology/Oncology Treatment [address] [place] [address] [place], Chair 8 Hem Onc [address] [place] [address] 11/10/2023 2:30 PM EDT Hem/Onc Treatment Hematology/Oncology Treatment [place] [address] [facility] [place] [address] 11/16/2023 9:45 AM EDT Office Visit Hematology/Oncology [facility] [place] [address] [place] [address] Marko Calloway MD [address] [place] [address] 12/08/2023 10:00 AM EDT Laboratory Lab Mobile Phlebotomy [facility] [address] [place] [address] [facility] Mobile Home Draw [address] [place] [address] 12/11/2023 10:20 AM EDT Office Visit Urogynecology [facility] [address] [facility] [place] [address] Andrae Joaquin MD [address] [place] [address] [place], Nurse Urodynamics [address] [place] [address] 01/31/2024 8:30 AM EDT Office Visit Cardiology, [facility] [address] [facility] [place] [address] Darius Stuart PA-C [address] [place] [address] 07/01/2024 8:30 AM EST Cardiac Studies Cardiology, [facility] [address] [facility] [place] [address] [facility] [address] [place] [address] Pending Results Name Type Priority Associated Diagnoses Date /Time HEMOGLOBIN A1C Lab Routine 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) Disorder of thyroid 10/27/2023 2:57 PM EST TSH Lab Routine Disorder of thyroid 10/27/2023 2:57 PM EST Health Maintenance Due Date Last Done Comments Depression Screening 1949 Albumin/Creatinine Ratio 1955 Diabetic Eye Exam 1955 DTaP,Tdap,and Td Vaccines (1 - Tdap) 1956 VITAMIN D LEVEL ONCE IN A LIFETIME-USE SMARTSET# 63318 1977 DXA Scan 1987 Diabetic Foot Exam 10/03/2018 10/03/2017 Influenza Vaccine (FLU shot) (#1) 2023 06/03/2022, 07/03/2017, 07/03/2017 HbA1c 02/02/2024 2023, 02/2023, 11/10/2022, Additional history exists B-12 10/19/2024 10/19/2023, 08/26/2022 [...] this encounter Medical Devices Implanted Type Area Coupling Machine Operator Device Identifier Shelf Expiration Date Model / Serial / Lot Bard Peripheral Vascular Alyssa Vena Cava Filter Implanted:Qty: 1 on 08/23/2017 by Nato Singh DO at RADIOLOGY [facility] Abdomen 06/27/2020 [id number] / [id number] / [id number] Lens Li61ao 13.00mm 22.00 - [id number] - [id number] Implanted:Qty: 1 on 03/21/2023 by Augustine Duong MD at OR [facility] Left: Eye BAUSCH [employer] LOMB 11/26/2027 [id number] / [id number] Lens Li61ao 13.00mm 22.00 - [id number] - [id number] Implanted:Qty: 1 on 04/04/2023 by Augustine Duong MD at OR [facility] Right: Eye BAUSCH & LOMB 12/26/2027 [id number] / [id number] / [id number] documented as of this encounter Procedures Procedure Name Priority Date/Time Associated Diagnosis Comments DIFFERENTIAL, AUTOMATED Routine 10/27/2023 2:44 PM EST Iron deficiency anemia due to chronic blood loss CBC Routine 10/27/2023 2:44 PM EST Iron deficiency anemia due to chronic blood loss CBC Routine 10/27/2023 2:44 PM EST Iron deficiency anemia due to chronic blood loss DIFFERENTIAL, TECHNOLOGIST REVIEW Routine 10/27/2023 2:44 PM EST Iron deficiency anemia due to chronic blood loss documented in this encounter Results * DIFFERENTIAL, TECHNOLOGIST REVIEW (10/27/2023 2:44 PM EST) WBC 8.80 4.00 - 10.80 K/uL 10/27/2023 3:01 PM EST [facility]02 Neutrophils % 63.0 40.0 - 75.0 % 10/27/2023 3:01 PM EST [facility]02 Lymphocytes % 21.0 18.0 - 42.0 % 10/27/2023 3:01 PM EST [facility]02 Monocytes % 10.0 1.0 - 11.0 % 10/27/2023 3:01 PM EST [facility] 56[facility]02 Eosinophils % 6.0 0.0 - 6.0 % 10/27/2023 3:01 PM EST [facility]02 Absolute Neutrophils 5.54 1.80 - 7.70 K/uL 10/27/2023 3:01 PM EST [facility] 56[facility]02 Absolute Lymphocytes 1.85 1.00 - 4.80 K/uL 10/27/2023 3:01 PM EST [facility]02 Absolute Monocytes 0.88 0.00 - 1.10 K/uL 10/27/2023 3:01 PM EST [facility] 56[facility]02 Absolute Eosinophils 0.53 0.00 - 0.70 K/uL 10/27/2023 3:01 PM EST [facility] 56[facility]02 nRBCs 10/27/2023 3:01 PM EST [facility] 56[facility]02 Blood Venous blood specimen / Unknown Venipuncture / Unknown 10/27/2023 2:44 PM EST 10/27/2023 2:47 PM EST Marko Calloway MD LAB BLOOD ORDERABLES [place] [address] [address] [place] [address] * DIFFERENTIAL, AUTOMATED (10/27/2023 2:44 PM EST) Blood Venous blood specimen / Unknown Venipuncture / Unknown 10/27/2023 2:44 PM EST 10/27/2023 2:47 PM EST Marko Calloway MD LAB BLOOD ORDERABLES [place] [address] [address] [place] [address] * (ABNORMAL) CBC (10/27/2023 2:44 PM EST) WBC 8.80 4.00 - 10.80 K/uL 10/27/2023 3:[address] RBC 3.49 3.85 - 5.15 M/uL 10/27/2023 3:[address] HGB 8.7(L) 12.0 - 15.3 g/dL 10/27/2023 3:[address] HCT 31.1(L) 36.0 - 45.2 % 10/27/2023 3:01 PM [facility] 56 MCV 89.1 81.5 - 97.5 fL 10/27/2023 3:[address] MCH 24.9 27.0 - 34.0 pg 10/27/2023 3:01 PM [facility] 56 MCHC 28.0 32.0 - 36.0 g/dL 10/27/2023 3:01 PM [facility] 56 RDW 16.8 11.5 - 15.5 % 10/27/2023 3:01 PM [facility] 56 PLT 369 140 - 400 K/uL 10/27/2023 3:01 PM [facility] 56 MPV 9.4 6.6 - 11.1 fL 10/27/2023 3:01 PM EST [facility] 56-02 Blood Venous blood specimen / Unknown Venipuncture / Unknown 10/27/2023 2:44 PM EST 10/27/2023 2:47 PM EST Narrative Authorizing Provider Result Bart Calloway MD LAB BLOOD ORDERABLES [facility] 56-[address] [place] [address] documented in this encounter Visit Diagnoses Diagnosis Iron deficiency anemia due to chronic blood loss- Primary 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) Type II or unspecified type diabetes mellitus with peripheral circulatory disorders, not stated as uncontrolled Disorder of thyroid Unspecified disorder of thyroid documented in this encounter Administered Medications Active Administered Medications - up to 3 most recent administrations Medication Order MAR Action Action Date Dose Rate Site diphenhydrAMINE (Benadryl) inj 50 mg 50 mg, IV Push, ONCE PRN Other, Hypersensitivity Reaction, Starting on Mon10/27/23 at 1441, Until 10/28/23 at 1440, For 24 hours EPINEPHrine 1 MG/ML inj 0.3 mg 0.3 mg, Intramuscular, ONCE PRN Other, Hypersensitivity Reaction or Anaphylaxis, Starting on Mon10/27/23 at 1441, Until 10/28/23 at 1440, For 24 hours hEParin 100 UNIT/ML Lock Flush inj 500 Units 500 Units (5 mL), IV Lock, PRN Other, IV Flush, Starting on Mon10/27/23 at 1441, Until 10/28/23 at 1440, For 24 hours, Do not flush if lock, PICC, or central line not in place; IV infusing or unable to flush. Hydrocortisone Sod Suc (PF) (Solu-Cortef) inj 100 mg 100 mg, IV Push, ONCE PRN Other, Hypersensitivity Reaction, Starting on Mon10/27/23 at 1441, Until 10/28/23 at 1440, For 24 hours NSS infusion 500 mL, Intravenous, at 50 mL/hr, CONTINUOUS, Starting on Mon10/27/23 at 1545, Until 10/28/23 at 0144 Start Infusion 10/27/2023 2:40 PM EST 500 mL 50 mL/hr oxygen GAS Inhalation, OXYGEN, First dose on Mon10/27/23 at 1600, Until Discontinued, Device/Managed by: Low [...] Push, PRN Other, IV Flush, Starting on Mon10/27/23 at 1441, Until 10/28/23 at 1440, For 24 hours, Do not flush if lock, PICC, or central line not in place; IV infusing or unable to flush. Inactive Administered Medications - up to 3 most recent administrations Medication Order MAR Action Action Date Dose Rate Site Iron Sucrose (Venofer) 300 mg in NSS 250 mL ivpb 300 mg, IV Piggyback, ONCE, 1 dose, On Mon10/27/23 at 1615, Administer over 90 Minutes Start Infusion 10/27/2023 2:40 PM EST 300 mg 166.67 mL/hr documented [...] the patient have Health Care Power of Warehouse Picker? No Code Status History Code Status Date Activated Date Inactivated Comments Full Code 08/27/2017 9:48 PM 09/04/2017 4:13 PM This order reflects the patients wishes and were consensually agreed upon. Question Answer Comments Discussion of Advance Directives occurred with: Patient Does the patient have a Living Will? No Does the patient have Health Care Power of Warehouse Picker? No Full Code 08/22/2017 8:14 PM 08/25/2017 7:18 PM Thi s order reflects the patients wishes and were consensually agreed upon. Question Answer Comments Discussion of Advance Directives occurred with: Patient/Family Does the patient have a Living Will? No Does the patient have Health Care Power of Warehouse Picker? No Care Teams Agile Project Manager Relationship Specialty Start Date End Date Avelina Douglas CRNP [address] [place] [address] PCP - General Nurse Practitioner 03/16/23 documented as of this encounter
--- OUTSIDE RECORDS SUMMARY | 2023-11-18 11:39 | External Medical Summary | Summary of Care ---
Author Name Unknown Organization [facility] Address [address] [facility] [place] [address] Phone [phone] Care Team Providers Care Cottage Parent Name Role Phone Avelina Douglas EMILY Primary Care Provider Encounter Details Date Type Department Care Team (Late st Contact Info) Description 10/20/2023 Orders Only Hematology/Oncology [facility] [place] [address] [facility] [place] [address] Marko Calloway MD [address] [place] [address] Iron deficiency anemia due to chronic blood loss*; Nutritional anemia Allergies Active Allergy Reactions Criticality Noted Date Comments Levofloxacin Other (Please comment) 05/26/2017 Cramping pains Nitrofurantoin Nausea/vomiting,Othe r (Please comment) 08/26/2022 Dizziness Propofol Nausea/vomiting 01/03/2018 documented as of this encounter (statuses as of 10/20/2023) Medications Medication Sig Dispensed Refills Start Date [...] Active metFORMIN ER (GLUCOPHAGE XR) 500 MG [id number]:Di abetes mellitus type 2, insulin dependent (HCC) [...] as of this encounter (statuses as of 10/20/2023) Active Problems Problem Noted Date Diagnosed Date [...] as of this encounter (statuses as of 10/20/2023) Immunizations Name Administration Dates Next Due COVID-19 [...] Progress Notes * Marko Calloway MD - 10/20/2023 8:47 AM EST Blood workup done on 10/19/2023: -WBC 6700, H&H of 7.5/27, MCV 90, Platelet count of 150435 -Serum iron: 8 -Serum iron 15, TIBC 305, iron saturation 5% on 09/07/2023. Hemoglobin level was around 9.3 on 09/07/2023. E coli UTI noted. Reviewed [facility] records, she had a CT scan of the abdomen pelvis on 06/22/2023, bilateral nephrolithiasis noted. No intra-abdominal lymphadenopathy or any soft tissue mass noted. Would like to get Ferritin, Vitamin B12 level checkup on the yesterday's blood. She is on Eliquis for underlying thrombotic complications. I would like to proceed with IV iron in the form Venofer once a week. documented in this encounter Plan of Treatment Upcoming Encounters Date Type Department Care Team (Late st Contact Info) Description 12/11/2023 10:20 AM EDT Office Visit Urogynecology [facility] [address] [place] [address] Andrae Joaquin MD [address] [place] [address] Gw, Nurse Urodynamics [address] [place] [address] 01/31/2024 8:30 AM EDT Office Visit Cardiology, [facility] [address] [place] [address] Darius Stuart PA-C [address] [place] [address] 07/01/2024 8:30 AM EST Cardiac Studies Cardiology, [facility] [address] [place] [id number] [facility] [address] [place] [address] Pending Results Name Type Priority Associated Diagnoses Date /Time FERRITIN Lab Routine Iron deficiency anemia due to chronic blood loss 10/19/2023 8:03 AM EST VITAMIN B12 Lab Routine Iron deficiency anemia due to chronic blood loss Nutritional anemia 10/19/2023 8:03 AM EST Scheduled Orders Name Type Priority Associated Diagnoses Orde r Schedule FERRITIN Lab Routine Iron deficiency anemia due to chronic blood loss Expected: 10/20/2023, Expires: 10/20/2024 VITAMIN B12 Lab Routine Iron deficiency anemia due to chronic blood loss Nutritional anemia Expected: 10/20/2023, Expires: 10/20/2024 Health Maintenance Due Date Last Done Comments Depression Screening 1947 Albumin/Creatinine Ratio 1955 Diabetic Eye Exam 1955 DTaP,Tdap,and Td Vaccines (1 - Tdap) 1956 VITAMIN D LEVEL ONCE IN A LIFETIME-USE SMARTSET# 46591 1977 DXA Scan 1987 Diabetic Foot Exam 10/03/2018 10/03/2017 Influenza Vaccine (FLU shot) (#1) 2023 06/03/2022, 07/03/2017, 07/03/2017 B-12 08/26/2023 08/26/2022 HbA1c 02/02/2024 2023, 090 02/2023, 11/10/2022, Additional history exists Pneumococcal Vaccine: [...] this encounter Medical Devices Implanted Type Area Food And Beverage Server Device Identifier Shelf Expiration Date Model / Serial / Lot Bard Peripheral Vascular Alyssa Vena Cava Filter Implanted:Qty: 1 on 08/23/2017 by Nato Singh, DO at RADIOLOGY [facility] Abdomen 06/27/2020 [id number] / [id number] / [id number] Lens Li61ao 13.00mm 22.00 - [id number] - [id number] Implanted:Qty: 1 on 03/21/2023 by Augustine Duong MD at OR [facility] Left: Eye BAUSCH & LOMB 11/26/2027 [id number] 0 / [id number] / [id number] Lens Li61ao 13.00mm 22.00 - [id number] - [id number] Implanted:Qty: 1 on 04/04/2023 by Augustine Duogn MD at OR [facility] Right: Eye BAUSCH & LOMB 12/26/2027 [id number] / [id number] / [id number] documented as of this encounter Visit Diagnoses Diagnosis Iron deficiency anemia due to chronic blood loss- Primary Iron deficiency anemia secondary to blood loss (chronic) Nutritional anemia Unspecified deficiency anemia documented in this encounter Advance Directives Latest Code Status on File Code Status Date Activated Date Inactivated Comments No Code 03/21/2023 10:19 AM 03/21/2023 4:27 PM This order reflects the patients wishes and were consensually agreed upon. Question Answer Comments Discussion of Advance Directives occurred with: Patient Does the patient have a Living Will? No Does the patient have Health Care Power of Marketing Automation Specialist? No Code Status History Code Status Date Activated Date Inactivated Comments Full Code 08/27/2017 9:48 PM 09/04/2017 4:13 PM This order reflects the patients wishes and were consensually agreed upon. Question Answer Comments Discussion of Advance Directives occurred with: Patient Does the patient have a Living Will? No Does the patient have Health Care Power of Marketing Automation Specialist? No Full Code 08/22/2017 8:14 PM 08/25/2017 7:18 PM Thi s order reflects the patients wishes and were consensually agreed upon. Question Answer Comments Discussion of Advance Directives occurred with: Patient/Family Does the patient have a Living Will? No Does the patient have Health Care Power of Marketing Automation Specialist? No Care Teams Cottage Parent Relationship Specialty Start Date End Date Avelina Douglas CRNP [address] [place] [address] PCP - General Nurse Practitioner 03/16/23 documented as of this encounter
--- OUTSIDE RECORDS SUMMARY | 2023-11-18 11:39 | External Medical Summary | Summary of Care ---
Author Name Unknown Organization [facility] Address [address] [facility] [address] Phone [phone] Care [address] Man Name Role Phone Avelina Douglas EMILY Primary Care Provider Reason for Visit * Reason Onset Date Comments Appointment 10/20/2023 Aneudyofer Encounter Details Date Type Department Care Team (Late st Contact Info) Description 10/20/2023 Telephone Hematology/Oncology [facility] [address] [facility] [place] [phone] Marko Calloway MD 200 [facility] [place] [address] Appointment (Cassie) Allergies Active Allergy Reactions Criticality Noted Date [...] Active metFORMIN ER (GLUCOPHAGE XR) 500 MG [id number]:Di abetes mellitus type 2, insulin dependent (HCC) [...] as of this encounter Miscellaneous Notes * Addendum Note - Javid Oconnor RN - 10/20/2023 12:56 PM ESTAddended by: JAVID OCONNOR on: 10/20/2023 12:56 PM Modules accepted: Orders * Telephone Encounter - Javid Oconnor RN - 10/20/2023 12:[address] Calloway- would like CBCD weekly while on Venofer. Orders placed, Glen updated. * Addendum Note - Javid Oconnor RN - 10/20/2023 9:10 AM ESTAddended by: JAVID OCONNOR on: 10/20/2023 09:10 AM Modules accepted: Orders * Telephone Encounter - Javid Oconnor RN - 10/20/2023 9:06 AM EST Received Venofer orders. Glen plan built and routed for signature. No auth needed. Pt to be scheduled today for first treatment. CBCD, Ferritin, Iron ordered for repeat 1 month after last infusion. documented in this encounter Plan of Treatment Upcoming Encounters Date Type Department Care Team (Late st Contact Info) Description 10/27/2023 3:00 PM EST Hem/Onc Treatment Hematology/Oncology Treatment, [address] [place] [phone] [place], Chair 1 Hem Onc [place] [address] [place] [address] 11/03/2023 12:45 PM EST Hem/Onc Treatment Hematology/[address] [address] [place], Chair 8 Hem Onc [place] [address] [place] [address] 11/10/2023 1:00 PM EDT Hem/Onc Treatment Hematology/Oncology Treatment, [address] [place] [address] 11/16/2023 9:45 AM EDT Office Visit Hematology/Oncology [facility] [place], [place] [address] [place] [address] Marko Calloway MD [address] [facility] [place] [address] 12/08/2023 10:00 AM EDT Laboratory Lab Mobile Phlebotomy [facility] [address] [place] [address] Gm, [facility] Mobile Home Draw [address] [place] [address] 12/11/2023 10:20 AM EDT Office Visit Urogynecology [facility] [address] [facility] [place] [address] Andrae Joaquin MD [address] [place] [address] Gw, Nurse Urodynamics [address] [place], [place] [phone] 01/31/2024 8:30 AM EDT Office Visit Cardiology, [facility] [address] [place] [address] Darius Stuart, PARoselineC [address] [place] [address] 07/01/2024 8:30 AM EST Cardiac Studies Cardiology, [facility] [address] [facility] [place] [address] [place], Pacer Clinic [facility] [address] [place] [address] Scheduled Orders Name Type Priority Associated Diagnoses Orde r Schedule CBC WITH WBC DIFFERENTIAL Lab Routine Iron deficiency anemia due to chronic blood loss Expected: 12/15/2023, Expires: 10/20/2024 FERRITIN Lab Routine Iron deficiency anemia due to chronic blood loss Expected: 12/15/2023, Expires: 10/20/2024 IRON SCREEN, INCLUDING TIBC Lab Routine Iron deficiency anemia due to chronic blood loss Expected: 12/15/2023, Expires: 10/20/2024 CBC WITH WBC DIFFERENTIAL Lab Routine Iron deficiency anemia due to chronic blood loss Every Week for 4 Occurrences starting 10/20/2023 until 10/20/2024 Health Maintenance Due Date Last Done Comments Depression Screening 1947 Albumin/Creatinine Ratio 1955 Diabetic Eye Exam 1955 DTaP,Tdap,and Td Vaccines (1 - Tdap) 1956 VITAMIN D LEVEL ONCE IN A LIFETIME-USE SMARTSET# 52767 1977 DXA Scan 1987 Diabetic Foot Exam [...] this encounter Medical Devices Implanted Type Area Open Shank Coverer Device Identifier Shelf Expiration Date Model / Serial / Lot Bard Peripheral Vascular Alyssa Vena Cava Filter Implanted:Qty: 1 on 08/23/2017 by Nato Singh DO at RADIOLOGY [facility] Abdomen 06/27/2020 [id number] / [id number] / [id number] Lens Li61ao 13.00mm 22.00 - [id number] - [id number] Implanted:Qty: 1 on 03/21/2023 by Augustine Duong MD at OR [facility] Left: Eye BAUSCH & LOMB 11/26/2027 [id number] 0 / [id number] / [id number] Lens Li61ao 13.00mm 22.00 - [id number] - [id number] Implanted:Qty: 1 on 04/04/2023 by Augustine Duong MD at OR [facility] Right: Eye BAUSCH & LOMB 12/26/2027 [id number] / [id number] / [id number] documented as of this encounter Visit Diagnoses [...] the patient have Health Care Power of Sample Body Builder? No Code Status History Code Status Date Activated Date Inactivated Comments Full Code 08/27/2017 9:48 PM 09/04/2017 4:13 PM This order reflects the patients wishes and were consensually agreed upon. Question Answer Comments Discussion of Advance Directives occurred with: Patient Does the patient have a Living Will? No Does the patient have Health Care Power of Sample Body Builder? No Full Code 08/22/2017 8:14 PM 08/25/2017 7:18 PM Thi s order reflects the patients wishes and were consensually agreed upon. Question Answer Comments Discussion of Advance Directives occurred with: Patient/Family Does the patient have a Living Will? No Does the patient have Health Care Power of Sample Body Builder? No Care Teams Drive Man Relationship Specialty Start Date End Date Avelina Douglas CRNP [address] [address] PCP - General Nurse Practitioner 03/16/23 documented as of this encounter
--- OUTSIDE RECORDS SUMMARY | 2023-11-18 11:39 | External Medical Summary | Summary of Care ---
Author Name Unknown Organization [facility] [address] [facility] [address] Phone [phone] Care Team Providers Care Roof Technician Name Role Phone Avelina Douglas EMILY Primary Care Provider Reason for Visit * Reason Comments IV Therapy Venofer. Encounter Details Date Type Department Care Team (Latest Contact Info) Description 10/20/2023 11:45 AM EST Hem/Onc Treatment Hematology/Oncology Treatment, [address] [address] Park, Chair 4 Hem Onc [address] [address] Iron deficiency anemia due to chronic blood [...] Active metFORMIN ER (GLUCOPHAGE XR) [id number]:Di abetes mellitus type 2, insulin dependent (HCC) [...] 3:00 PM EST Hem/Onc Treatment Hematology/[address]cology [address], [address] [address] Tova, Chair 1 Hem Onc [address] [place] [address] 11/03/2023 2:45 PM EST Hem/Onc Treatment Hematology/[address]cology [address], [address] [address] T[place], Chair 8 [facility]c [facility] [address] [place] [address] [place] [address] 11/10/2023 2:30 PM EDT Hem/Onc Treatment Hematology/Oncology [address], [address] [address] 11/16/2023 9:45 AM EDT Office Visit [facility] [address] [facility] [place], [place] [phone] Marko Calloway MD [address] [facility] [place] [address] 12/08/2023 10:00 AM EDT Laboratory Lab Mobile Phlebotomy [facility] [address] [place] [address] [facility] [place] [place], [facility] Mobile Home Draw [address] [place] [address] 12/11/2023 10:20 AM EDT Office Visit Urogy[facility]cology [facility] [address] [place] [phone] Andrae Joaquin MD [address] [place], [place] [phone] Gw, Nurse Urodynamics [address] [place], [place] [phone] 01/31/2024 8:30 AM EDT Office Visit Cardiology, [facility] [address] [place] [address] Darius Stuart PARoselineC [address] [place] [address] 07/01/2024 8:30 AM EST Cardiac Studies Cardiology, [facility] [address] [place] [address] [facility] [address] [place] [address] Health Maintenance Due Date Last Done Comments Depression Screening 1949 Albumin/Creatinine Ratio 1955 Diabetic Eye Exam 1955 DTaP,Tdap,and Td Vaccines (1 - Tdap) 1956 VITAMIN D LEVEL ONCE IN A LIFETIME-USE SMARTSET# 01004 1977 DXA Scan 1987 Diabetic Foot Exam [...] this encounter Medical Devices Implanted Type Area Pharmacy Clinical Coordinator Device Identifier Shelf Expiration Date Model / Serial / Lot Bard Peripheral Vascular [place] Vena Cava Filter Implanted:Qty: 1 on 08/23/2017 by Nato Singh DO at RADIOLOGY [facility] Abdomen 06/27/2020 [id number] / [id number] / [id number] Lens Li61ao 13.00mm 22.00 - [id number] - [id number] Implanted:Qty: 1 on 03/21/2023 by Augustine Duong MD at OR [facility] Left: Eye [employer]USCH [employer] LOMB 11/26/2027 [id number] / [id number] Lens Li61ao 13.00mm 22.00 - [id number] - [id number] Implanted:Qty: 1 on 04/04/2023 by Augustine Duong MD at OR [facility] Right: Eye BAUSCH & LOMB 12/26/2027 [id number] / [id number] documented as of this encounter Visit Diagnoses [...] ONCE PRN Other, Hypersensitivity Reaction, Starting on Mon10/20/23 at 1205, Until 10/21/23 at 1204, For 24 hours EPINEPHrine 1 MG/ML inj 0.3 mg 0.3 mg, Intramuscular, ONCE PRN Other, Hypersensitivity Reaction or Anaphylaxis, Starting on Mon10/20/23 at 1205, Until 10/21/23 at 1204, For 24 hours hEParin 100 UNIT/ML Lock Flush inj 500 Units 500 Units (5 mL), IV Lock, PRN Other, IV Flush, Starting on Mon10/20/23 at 1205, Until 10/21/23 at 1204, For 24 hours, Do not flush if lock, PICC, or central line not in place; IV infusing or unable to flush. Hydrocortisone Sod Suc (PF) (Solu-Cortef) inj 100 mg 100 mg, IV Push, ONCE PRN Other, Hypersensitivity Reaction, Starting on Mon10/20/23 at 1205, Until 10/21/23 at 1204, For 24 hours NSS infusion 500 mL, Intravenous, at 50 mL/hr, CONTINUOUS, Starting on Mon10/20/23 at 1315, Until Mon10/20/23 at 2314 Start Infusion 10/20/2023 12:17 PM EST 500 mL 50 mL/hr oxygen GAS Inhalation, OXYGEN, First dose on Mon10/20/23 at 1600, Until Discontinued, Device/Managed by: Low [...] Push, PRN Other, IV Flush, Starting on Mon10/20/23 at 1205, Until 10/21/23 at 1204, For 24 hours, Do not flush if [...] 12:18 PM EST 300 mg 166.67 mL/hr documented [...] the patient have Health Care Power of Senior Infrastructure Engineer? No Code Status History Code Status Date Activated Date Inactivated Comments Full Code 08/27/2017 9:48 PM 09/04/2017 4:13 PM This order reflects the patients wishes and were consensually agreed upon. Question Answer Comments Discussion of Advance Directives occurred with: Patient Does the patient have a Living Will? No Does the patient have Health Care Power of Senior Infrastructure Engineer? No Full Code 08/22/2017 8:14 PM 08/25/2017 7:18 PM Thi s order reflects the patients wishes and were consensually agreed upon. Question Answer Comments Discussion of Advance Directives occurred with: Patient/Family Does the patient have a Living Will? No Does the patient have Health Care Power of Senior Infrastructure Engineer? No Care Teams Roof Technician Relationship Specialty Start Date End Date Avelina Douglas CRNP [address] [place] [address] PCP - General Nurse Practitioner 03/16/23 documented as of this encounter
--- OUTSIDE RECORDS SUMMARY | 2023-11-18 11:39 | External Medical Summary ---
Author Name Unknown Address Unknown Organization [id number]:[facility] [place] [place] [address] Laboratory Report Ordering Provider Test Date Status BRENDA RAMSEY 10/27/2023 14:44:41 Final While on Venofer weekly. Observation Date Value Abnormality Reference (Units ) Status WBC, Total 10/27/2023 14:44:41 8.80 4.00-10.8 0 (K/uL) Final RBC 10/27/2023 14:44:41 3.49 3.85-5.15 (M/uL) Final Hemoglobin 10/27/2023 14:44:41 8.7 Below low normal 12 .0-15.3 (g/dL) Final HCT 10/27/2023 14:44:41 31.1 Below low normal 36. 0-45.2 (%) Final MCV 10/27/2023 14:44:41 89.1 81.5-97.5 (fL) Final MCH 10/27/2023 14:44:41 24.9 27.0-34.0 (pg) Final MCHC 10/27/2023 14:44:41 28.0 32.0-36.0 (g/dL) Final RDW 10/27/2023 14:44:41 16.8 11.5-15.5 (%) Final Platelets 10/27/2023 14:44:41 369 140-400 (K /uL) Final MPV 10/27/2023 14:44:41 9.4 6.6-11.1 ( fL) Final Performing Location [facility] [place] [address]
--- OUTSIDE RECORDS SUMMARY | 2023-11-18 11:39 | External Medical Summary ---
Author Name Unknown Address Unknown Organization [id number]:[facility] - [address] [place] [address] Laboratory Report Ordering Provider Test Date Status BRENDA RAMSEY 10/19/2023 08:03:00 Final Observation Date Value Abnormality Reference (Units ) Status Ferritin 10/19/2023 08:03:00 13 13-150 (ng /mL) Final Postmenopausal women have hi gher ferritin levels than pre-menopausal women. The above reference interval is based on pre-menopausal women. Performing Location [facility] - [address] [place] [address]
--- OUTSIDE RECORDS SUMMARY | 2023-11-18 11:39 | External Medical Summary ---
Author Name Unknown Address Unknown Organization [id number]:[facility] - [address] [place] [address] Laboratory Report Ordering Provider Test Date Status KEYONNA RAMSEYEL 10/19/2023 08:03:00 Final Observation Date Value Abnormality Reference (Units ) Status Vitamin B12 10/19/2023 08:03:00 301 047-1297 (pg/mL) Final Performing Location [facility] - [address] [place] [address]
--- OUTSIDE RECORDS SUMMARY | 2023-11-18 11:39 | External Medical Summary | Summary of Care ---
Author Name Unknown Organization [facility] Address [address] [facility] [place] [address] Phone [phone] Care Team Providers Care Jawbone Puller Name Role Phone Avelina Douglas EMILY Primary Care Provider Encounter Details Date Type Department Care Team (Late st Contact Info) Description 10/20/2023 Orders Only Hematology/Oncology [facility] State Tiara Bernardo [address] [facility] [place] [address] Marko Calloway MD [address] [place] [address] Allergies Active Allergy Reactions Criticality Noted Date [...] Active metFORMIN ER (GLUCOPHAGE XR) 500 MG [id number]:Di abetes mellitus type 2, insulin dependent (HCC) [...] 30 Mcg, IM, 12 yrs and above (WorldAPP) 06/03/2022 Pneumococcal Conjugate Vacc, 13 Valent (Prevnar) [...] No 08/27/2017 documented as of this encounter Plan of Treatment Upcoming Encounters Date Type Department Care Team (Late st Contact Info) Description 10/20/2023 11:45 AM EST Hem/Onc Treatment Hematology/Oncology Treatment, [place] [address] [place] [phone] Tova, Chair 4 Hem Onc [address] [address] [place] [place] [address] 12/11/2023 10:20 AM EDT Office Visit Urogynecology [facility] [address] [place] [address] Andrae Joaquin MD [address] [place] [address] [place], Nurse Urodynamics [address] [place] [address] 01/31/2024 8:30 AM EDT Office Visit Cardiology, [facility] [address] [place] [address] Darius Stuart PA-C [address] [place] [address] 07/01/2024 8:30 AM EST Cardiac Studies Cardiology, [facility] [address] [place] [address] [place], Pacer Clinic [facility] [address] [place] [address] Health Maintenance Due Date Last Done Comments Depression Screening 1949 Albumin/Creatinine Ratio 1955 Diabetic Eye Exam 1955 DTaP,Tdap,and Td Vaccines (1 - Tdap) 1956 VITAMIN D LEVEL ONCE IN A LIFETIME-USE SMARTSET# [id number] 1977 DXA Scan 1987 Diabetic Foot Exam [...] this encounter Medical Devices Implanted Type Area Oil Deliverer Device Identifier Shelf Expiration Date Model / Serial / Lot Bard Peripheral Vascular [place] Vena Cava Filter Implanted:Qty: 1 on 08/23/2017 by Nato Singh DO [place] [facility] [place]domen 06/27/2020 [id number] / [id number] / [id number] Lens Li61ao 13.00mm 22.00 - [id number] - [id number] Implanted:Qty: 1 on 03/21/2023 by Augustine Duong MD at OR [facility] Left: Eye BAUSCH & LOMB 11/26/2027 [id number] 0 / [id number] / [id number] Lens Li61ao 13.00mm 22.00 - [id number] - [id number] Implanted:Qty: 1 on 04/04/2023 by Augustine Duong MD at OR [facility] Right: Eye BAUSCH & LOMB 12/26/2027 [id number] / [id number] / [id number] documented as of this encounter Advance Directives [...] the patient have Health Care Power of Loader Demolder? No Code Status History Code Status Date Activated Date Inactivated Comments Full Code 08/27/2017 9:48 PM 09/04/2017 4:13 PM This order reflects the patients wishes and were consensually agreed upon. Question Answer Comments Discussion of Advance Directives occurred with: Patient Does the patient have a Living Will? No Does the patient have Health Care Power of Loader Demolder? No Full Code 08/22/2017 8:14 PM 08/25/2017 7:18 PM Thi s order reflects the patients wishes and were consensually agreed upon. Question Answer Comments Discussion of Advance Directives occurred with: Patient/Family Does the patient have a Living Will? No Does the patient have Health Care Power of Loader Demolder? No Care Teams Jawbone Puller Relationship Specialty Start Date End Date Avelina Douglas CRNP [address] [address] PCP - General Nurse Practitioner 03/16/23 documented as of this encounter
--- OUTSIDE RECORDS SUMMARY | 2023-11-18 11:39 | External Medical Summary | Summary of Care ---
Author Name Unknown Organization [facility] Address [address] [facility] [address] Phone [phone] Care Team Providers Care Production Machine Shop Supervisor Name Role Phone Avelina Douglas EMILY Primary Care Provider Reason for Visit * Reason Onset Date Comments Appointment 10/20/2023 Aneudyofer Encounter Details Date Type Department Care Team (Late st Contact Info) Description 10/20/2023 Telephone Hematology/Oncology [facility] [address] [place] [phone] Marko Calloway MD 200 [place] [address] Appointment (Cassie) Allergies Active Allergy Reactions Criticality [...] Active metFORMIN ER (GLUCOPHAGE XR) 500 MG PS36Lylffqfzjxb:Di abetes mellitus type 2, insulin dependent (HCC) [...] Miscellaneous Notes * Addendum Note - Javid Dwyer RN - 10/20/2023 9:10 AM ESTAddended by: JAVID DWYER on: 10/20/2023 09:10 AM Modules accepted: Orders * Telephone Encounter - Javid Dwyer RN - 10/20/2023 9:06 AM EST Received Venofer orders. [place] plan built and routed for signature. No auth needed. Pt to be scheduled today for first treatment. CBCD, Ferritin, Iron ordered for repeat 1 month after last infusion. documented in this encounter Plan of Treatment Upcoming Encounters Date Type Department Care Team (Late st Contact Info) Description 12/11/2023 10:20 AM EDT Office Visit Urogynecology [facility] [address] [place] [phone] Andrae Joaquin MD [address] [place] [address] [place], Nurse Urodynamics [address] [place] [address] 01/31/2024 8:30 AM EDT Office Visit Cardiology, [facility] [address] [place] [address] Darius Stuart PA-C [address] [place] [address] 07/01/2024 8:30 AM EST Cardiac Studies Cardiology, [facility] [address] [place] [address] [facility] [address] [place] [address] Scheduled Orders Name Type Priority Associated Diagnoses Orde r Schedule CBC WITH WBC DIFFERENTIAL Lab Routine Iron deficiency anemia due to chronic blood loss Expected: 12/15/2023, Expires: 10/20/2024 FERRITIN Lab Routine Iron deficiency anemia due to chronic blood loss Expected: 12/15/2023, Expires: 10/20/2024 IRON SCREEN, INCLUDING TIBC Lab Routine Iron deficiency anemia due to chronic blood loss Expected: 12/15/2023, Expires: 10/20/2024 Health Maintenance Due Date Last Done Comments Depression Screening 1949 Albumin/Creatinine Ratio 1955 Diabetic Eye Exam 1955 DTaP,Tdap,and Td Vaccines (1 - Tdap) 1956 VITAMIN D LEVEL ONCE IN A LIFETIME-USE SMARTSET# 36501 1977 DXA Scan 1987 Diabetic Foot Exam [...] this encounter Medical Devices Implanted Type Area Resp Ther Device Identifier Shelf Expiration Date Model / Serial / Lot Bard Peripheral Vascular [place] Vena Cava Filter Implanted:Qty: 1 on 08/23/2017 by Nato Singh DO at RADIOLOGY [facility] Abdomen 06/27/2020 [id number] / [id number] / [id number] Lens Li61ao 13.00mm 22.00 - [id number] - [id number] Implanted:Qty: 1 on 03/21/2023 by Augustine Duong MD at OR [facility] Left: Eye BAUSCH & LOMB 11/26/2027 [id number] 0 / [id number] / [id number] Lens Li61ao 13.00mm 22.00 - [id number] - [id number] Implanted:Qty: 1 on 04/04/2023 by Augustine Duong MD at [facility] Right: Eye BAUSCH & LOMB 12/26/2027 [id number] / [id number] / [id number] documented as of this encounter Visit Diagnoses [...] the patient have Health Care Power of Edge Roller? No Code Status History Code Status Date Activated Date Inactivated Comments Full Code 08/27/2017 9:48 PM 09/04/2017 4:13 PM This order reflects the patients wishes and were consensually agreed upon. Question Answer Comments Discussion of Advance Directives occurred with: Patient Does the patient have a Living Will? No Does the patient have Health Care Power of Edge Roller? No Full Code 08/22/2017 8:14 PM 08/25/2017 7:18 PM Thi s order reflects the patients wishes and were consensually agreed upon. Question Answer Comments Discussion of Advance Directives occurred with: Patient/Family Does the patient have a Living Will? No Does the patient have Health Care Power of Edge Roller? No Care Teams Production Machine Shop Supervisor Relationship Specialty Start Date End Date Avelina Douglas CRNP [address] [place] [address] PCP - General Nurse Practitioner 03/16/23 documented as of this encounter
--- OUTSIDE RECORDS SUMMARY | 2023-11-18 11:39 | External Medical Summary ---
Author Name Unknown Address Unknown Organization K01:[facility] [place] [address] [facility] [address] [facility] [place] [address] Laboratory Report Ordering Provider Test Date Status FRANKIE BERKOWITZ 10/27/2023 14:57:30 Final Observation Date Value Abnormality Reference (Units ) Status HbA1C 10/27/2023 14:57:30 6.4 Above high normal 4. 0-5.6 (%) Final The use of HbA1c to monitor glycemic status is based on normal hemoglobin and HbA composition. This test should not be used in patients with abnormal hemoglobin that affects the half life of the red blood cell or the in vivo glycation rates. Glucose, estimated average 10/27/2023 14:57:30 137 Above high normal <126 (mg/dL) Sridhar liriano Performing Location [facility] [place] [facility] Danie[facility] [place] [address]
--- OUTSIDE RECORDS SUMMARY | 2023-11-18 11:39 | External Medical Summary | Summary of Care ---
Author Name Unknown Organization [facility] Address [address] [facility] [address] Phone [phone] Team Prov[address] Care [address] Lab Technician Name Role Phone Avelina Douglas EMILY Primary Care Provider Reason for Visit * Reason Onset Date Comments Appointment 10/20/2023 Aneudyofer Encounter Details Date Type Department Care Team (Late st Contact Info) Description 10/20/2023 Telephone Hematology/Oncology [facility] [address] [facility] [place] [phone] Marko Calloway MD 200 [place] [address] Appointment (Cassie) Allergies Active Allergy Reactions Criticality [...] Active metFORMIN ER (GLUCOPHAGE XR) 500 MG [id number]:Di abetes mellitus type 2, insulin dependent (HCC) [...] 10/20/2023 9:06 AM EST Received Venofer orders. [place] plan built and routed for signature. No auth needed. Pt to be scheduled today for first treatment. CBCD, Ferritin, Iron ordered for repeat 1 month after last infusion. documented in this encounter Plan of Treatment Upcoming Encounters Date Type Department Care Team (Late st Contact Info) Description 10/20/2023 11:45 AM EST Hem/Onc Treatment Hematology/Oncology Treatment, [place] [address] [facility] [address] [place] [phone] Tova, Chair 4 Hem Onc [facility] [address] [facility] [address] [place] [address] 12/11/2023 10:20 AM EDT Office Visit Urogynecology [facility] [address] [place] [address] Andrae Joaquin MD [address] [place] [address] [place], Nurse Urodynamics [address] [place] [address] 01/31/2024 8:30 AM EDT Office Visit Cardiology, [facility] [address] [place] [address] Darius Stuart PA-C [address] [place] [address] 07/01/2024 8:30 AM EST Cardiac Studies Cardiology, [facility] [address] [place] [address] [facility] [address] [place] [address] Scheduled Orders Name Type Priority Associated Diagnoses [...] D LEVEL ONCE IN A LIFETIME-USE SMARTSET# 01920 1977 DXA Scan 1987 Diabetic Foot Exam [...] encounter Medical Devices Implanted Type Area Pharmacy Order Entry Technician Device Identifier Shelf Expiration Date Model / Serial / Lot Bard Peripheral Vascular [place] Vena Cava Filter Implanted:Qty: 1 on 08/23/2017 by Nato Singh, DO at RADIOLOGY [facility] Abdomen 06/27/2020 [id number] / [id number] / [id number] Lens Li61ao 13.00mm 22.00 - [id number] - [id number] Implanted:Qty: 1 on 03/21/2023 by Augustine Duong MD at OR [facility] Left: Eye BAUSCH & LOMB 11/26/2027 [id number] 0 / [id number] / [id number] Lens Li61ao 13.00mm 22.00 - [id number] - [id number] Implanted:Qty: 1 on 04/04/2023 by Augustine Duong MD at OR [facility] Right: Eye BAUSCH & LOMB 12/26/2027 [id number] / [id number] / [id number] documented as of this encounter Visit Diagnoses [...] the patient have Health Care Power of Rn Trauma? No Code Status History Code Status Date Activated Date Inactivated Comments Full Code 08/27/2017 9:48 PM 09/04/2017 4:13 PM This order reflects the patients wishes and were consensually agreed upon. Question Answer Comments Discussion of Advance Directives occurred with: Patient Does the patient have a Living Will? No Does the patient have Health Care Power of Rn Trauma? No Full Code 08/22/2017 8:14 PM 08/25/2017 7:18 PM Thi s order reflects the patients wishes and were consensually agreed upon. Question Answer Comments Discussion of Advance Directives occurred with: Patient/Family Does the patient have a Living Will? No Does the patient have Health Care Power of Rn Trauma? No Care Teams Rd Lab Technician Relationship Specialty Start Date End Date Avelina Douglas CRNP [address] [place] [address] PCP - General Nurse Practitioner 03/16/23 documented as of this encounter
--- OUTSIDE RECORDS SUMMARY | 2023-11-18 11:39 | External Medical Summary | Summary of Care ---
Author Name Unknown Organization [facility] Address [address] [facility] [place] [address] Phone [phone] Care Team Providers Care Coroner Name Role Phone Avelina Douglas EMILY Primary Care Provider Encounter Details Date Type Department Care Team (Late st Contact Info) Description 10/20/2023 Orders Only Hematology/Oncology [facility] State Tiara Bernardo [address] [facility] [place] [address] Marko Calloway MD [address] [place] [address] Allergies Active Allergy Reactions Criticality Noted Date [...] Active metFORMIN ER (GLUCOPHAGE XR) 500 MG [id number]:Di abetes mellitus type 2, insulin dependent (HCC) [...] 30 Mcg, IM, 12 yrs and above ([employer]) 06/03/2022 Pneumococcal Conjugate Vacc, 13 Valent (Prevnar) [...] 11:45 AM EST Hem/Onc Treatment Hematology/Oncology Treatment, [place] [address] [place] [phone] Tova, Chair 4 Hem Onc Scenery [address] [place] [address] 11/16/2023 9:45 AM EDT Office Visit Hematology/Oncology [facility] Tova [place] [address] [facility] [place] [phone] Marko Calloway MD 200 [facility] [place] [address] 12/11/2023 10:20 AM EDT Office Visit Urogynecology [facility] [address] [place] [address] Andrae Joaquin MD [address] [place] [address] [place], Nurse Urodynamics [address] [place] [address] 01/31/2024 8:30 AM EDT Office Visit Cardiology, [facility] [address] [place] [address] Darius Stuart PA-C [address] [place] [address] 07/01/2024 8:30 AM EST Cardiac Studies Cardiology, [facility] [address] [place] [address] [facility] [address] [place] [address] Health Maintenance Due Date Last Done Comments Depression Screening 1949 Albumin/Creatinine Ratio 1955 Diabetic Eye Exam 1955 DTaP,Tdap,and Td Vaccines (1 - Tdap) 1956 VITAMIN D LEVEL ONCE IN A LIFETIME-USE SMARTSET# 25417 1977 DXA Scan 1987 Diabetic Foot Exam 10/03/2018 10/03/2017 Influenza Vaccine (FLU shot) (#1) 2023 06/03/2022, 07/03/2017, 07/03/2017 HbA1c 02/02/2024 2023, 090 02/2023, 11/10/2022, Additional history exists B-12 10/19/2024 [...] this encounter Medical Devices Implanted Type Area Staff Counsel Device Identifier Shelf Expiration Date Model / Serial / Lot Bard Peripheral Vascular [place] Vena Cava Filter Implanted:Qty: 1 on 08/23/2017 by Nato Singh DO at RADIOLOGY [facility] Abdomen 06/27/2020 [id number] / [id number] / [id number] Lens Li61ao 13.00mm 22.00 - [id number] - [id number] Implanted:Qty: 1 on 03/21/2023 by Augustine Duong MD at OR [facility] Left: Eye [employer]OM[employer] 11/26/2027 [id number] 0 / [id number] / [id number] Lens Li61ao 13.00mm 22.00 - [id number] - [id number] Implanted:Qty: 1 on 04/04/2023 by Augustine Duong MD at OR [facility] Right: Eye [employer]CH [employer] LOMB 12/26/2027 [id number] 0 / [id number] / [id number] documented as of this encounter Advance Directives [...] the patient have Health Care Power of It Disaster Recovery Manager? No Code Status History Code Status Date Activated Date Inactivated Comments Full Code 08/27/2017 9:48 PM 09/04/2017 4:13 PM This order reflects the patients wishes and were consensually agreed upon. Question Answer Comments Discussion of Advance Directives occurred with: Patient Does the patient have a Living Will? No Does the patient have Health Care Power of It Disaster Recovery Manager? No Full Code 08/22/2017 8:14 PM 08/25/2017 7:18 PM Thi s order reflects the patients wishes and were consensually agreed upon. Question Answer Comments Discussion of Advance Directives occurred with: Patient/Family Does the patient have a Living Will? No Does the patient have Health Care Power of It Disaster Recovery Manager? No Care Teams Coroner Relationship Specialty Start Date End Date Avelina Douglas CRNP [address] [place] [address] PCP - General Nurse Practitioner 03/16/23 documented as of this encounter
--- OUTSIDE RECORDS SUMMARY | 2023-11-18 11:39 | External Medical Summary ---
Author Name Unknown Address Unknown Organization K01:[facility] [address] [place] [address] Laboratory Report Ordering Provider Test Date Status FRANKIE BERKOWITZ 10/19/2023 08:03:00 Final Observation Date Value Abnormality Reference (Units ) Status WBC, Total 10/19/2023 08:03:00 6.76 4.00-10.80 (K/uL) Final RBC 10/19/2023 08:03:00 2.99 3.85-5.15 (M/uL) Final Hemoglobin 10/19/2023 08:03:00 7.5 Below low normal 12.0-15.3 (g/dL) Final HCT 10/19/2023 08:03:00 27.0 Below low normal 36.0-45.2 (%) Final MCV 10/19/2023 08:03:00 90.3 81.5-97.5 (fL) Final MCH 10/19/2023 08:03:00 25.1 27.0-34.0 (pg) Final MCHC 10/19/2023 08:03:00 27.8 32.0-36.0 (g/dL) Final RDW 10/19/2023 08:03:00 15.0 11.5-15.5 (%) Final Platelets 10/19/2023 08:03:00 260 140-400 (K/uL) Final MPV 10/19/2023 08:03:00 10.2 6.6-11.1 (fL) Final Nucleated erythrocytes/100 leukocytes [Ratio] in Blood by Automated count 10/19/2023 08:03:00 0 <=0 (/100 WBCs) Final Performing Location [facility] [address] [place] [address]
--- OUTSIDE RECORDS SUMMARY | 2023-11-18 11:39 | External Medical Summary ---
Author Name Unknown Address Unknown Organization K01:LAB[facility]ATORY [facility] [place] [address] [place] [address] Laboratory Report Ordering Provider Test Date Status FRANKIE BERKOWITZ 10/19/2023 08:03:00 Final Observation Date Value Abnormality Reference (Units ) Status Iron 10/19/2023 08:03:00 8 Below low normal 33- 151 (ug/dL) Final Performing Location LABORATORY [facility] - [address] [place] [address]
--- OUTSIDE RECORDS SUMMARY | 2023-11-18 11:39 | External Medical Summary | Summary of Care ---
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)*; Disorder of thyroid Allergies Active Allergy Reactions [...] Active metFORMIN ER (GLUCOPHAGE XR) 500 MG [id number]:Di abetes mellitus type 2, insulin dependent (HCC) [...] 2:45 PM EST Hem/Onc Treatment Hematology/Oncology Treatment, [place] [address] [place] [address] Tova, Chair 8 Hem Onc Scenery [address] [place] [address] 11/10/2023 2:30 PM EDT Hem/Onc Treatment Hematology/Oncology [facility], [place] [address] [facility] [place], [place] [phone] 11/16/2023 9:45 AM EDT Office Visit Hematology/Oncology [facility] [address] [place], [place] [address] Marko Calloway MD 200 [facility] [place], [place] [address] 12/08/2023 10:00 AM EDT Laboratory Lab Mobile [facility] [address] [place], [place] [phone] [facility], [facility] Mobile Home Draw [address] [place] [address] 12/11/2023 10:20 AM EDT Office Visit Urogynecology [facility] [address] [place] [address] Andrae Joaquin MD [address] [place] [address] [place], Nurse Urodynamics [address] [place] [address] 01/31/2024 8:30 AM EDT Office Visit Cardiology, [facility] [address] [place] [address] Darius Stuart PA-C [address] [place] [address] 07/01/2024 8:30 AM EST Cardiac Studies Cardiology, 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 Expected: 10/27/2023, Expires: 10/26/2024 TSH Lab Routine Disorder of thyroid Expected: 10/27/2023, Expires: 10/26/2024 HEMOGLOBIN A1C Lab Routine 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.] this encounter Medical Devices Implanted Type Area Student Services Representative Device Identifier Shelf Expiration Date Model / Serial / Lot Bard Peripheral Vascular [place] Vena Cava Filter Implanted:Qty: 1 on 08/23/2017 by Nato Singh DO at [place] [facility] [place]domen 06/27/2020 [id number] / [id number] / [id number] Lens Li61ao 13.00mm 22.00 - [id number] - [id number] Implanted:Qty: 1 on 03/21/2023 by Augustine Duong MD at OR [facility] Left: Eye [employer]OMB 11/26/2027 [id number] 0 / [id number] / [id number] Lens Li61ao 13.00mm 22.00 - [id number] - [id number] Implanted:Qty: 1 on 04/04/2023 by Augustine Duong MD at OR [facility] Right: Eye BAUSCH [employer] LOMB 12/26/2027 [id number] 0 / [id number] / [id number] documented as of this encounter Visit Diagnoses Diagnosis 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 No Code Status History Code Status Date Activated Date Inactivated Comments Full Code 08/27/2017 9:48 PM 09/04/2017 4:13 PM This order reflects the patients wishes and were consensually agreed upon. Question Answer Comments Discussion of Advance Directives occurred with: Patient Does the patient have a Living Will? No Does the patient have Health Care Power of Lead Front End Developer? No Full Code 08/22/2017 8:14 PM 08/25/2017 7:18 PM Thi s order reflects the patients wishes and were consensually agreed upon. Question Answer Comments Discussion of Advance Directives occurred with: Patient/Family Does the patient have a Living Will? No Does the patient have Health Care Power of Lead Front End Developer? No Care Teams Medical And Health Services Manager Relationship Specialty Start Date End Date Avelina Douglas CRNP [address] [address] PCP - General Nurse Practitioner 03/16/23 documented as of this encounter
--- OUTSIDE RECORDS SUMMARY | 2023-11-18 11:39 | External Medical Summary | Summary of Care ---
Author Name Unknown Organization [facility] Address [address] [facility] [place] [address] Phone [phone] Care Team Providers Care Associate Dean Of Women Name Role Phone Avelina Douglas EMILY Primary Care Provider Encounter Details Date Type Department Care Team (Late st Contact Info) Description 10/20/2023 Orders Only Hematology/Oncology [facility] State Tiara Bernardo 200 [facility] [place] [address] Marko Calloway MD [address] [place] [address] Iron deficiency anemia due to chronic blood loss*; Nutritional anemia Allergies Active Allergy Reactions Criticality Noted Date Comments Levofloxacin Other (Please comment) 05/26/2017 Cramping pains Nitrofurantoin Nausea/vomiting,Othe r (Please comment) 08/26/2022 Dizziness Propofol Nausea/vomiting 01/03/2018 documented as of this encounter (statuses as of 11/01/2023) Medications Medication Sig Dispensed Refills Start Date [...] Active metFORMIN ER (GLUCOPHAGE XR) 500 MG [id number]:Di abetes mellitus type 2, insulin dependent (HCC) [...] as of this encounter (statuses as of 11/01/2023) Active Problems Problem Noted Date Diagnosed Date [...] as of this encounter (statuses as of 11/01/2023) Immunizations Name Administration Dates Next Due COVID-19 [...] Progress Notes * Marko Calloway MD - 11/01/2023 4:30 PM EST Blood workup done on 10/19/2023: -Ferritin--> 13 -Serum iron --> 8 Evidence of iron deficiency noted Will proceed with intravenous iron in the form of Venofer to correct the iron deficiency. * Marko Calloway MD - 10/20/2023 8:47 AM EST Blood workup done on 10/19/2023: -WBC 6700, H&H of 7.5/27, MCV 90, Platelet count of 940814 -Serum iron: 8 -Serum iron 15, TIBC 305, iron saturation 5% on 09/07/2023. Hemoglobin level was around 9.3 on 09/07/2023. E coli UTI noted. Reviewed [facility] records, she had a CT scan of [...] 2:45 PM EST Hem/Onc Treatment Hematology/Oncology Treatment, [address] [place] [address] Tova, Chair [address] [place] [address] 11/10/2023 2:30 PM EDT Hem/Onc Treatment Hematology/Oncology [address], [address] [address] 11/16/2023 9:45 AM EDT Office Visit Hematology/Oncology [facility] [address] [place] [address] Marko Calloway MD [address] [place], [place] [address] [address] 12/08/2023 10:00 AM EDT Laboratory Lab Mobile Phlebotomy [address] [address] [facility] Mobile Home Draw [address] [place] [address] 12/11/2023 10:20 AM EDT Office Visit Urogynecology [facility] [address] [place] [address] Andrae Joaquin MD [address] [place] [phone] [place], Nurse Urodynamics [address] [place] [address] 01/31/2024 8:30 AM EDT Office Visit Cardiology, [facility] [address] [place] [address] Darius Stuart PA-C [address] [place] [address] 07/01/2024 8:30 AM EST Cardiac Studies Cardiology, [facility] [address] [place] [address] [facility] [address] [facility] [place] [address] Health Maintenance Due Date Last Done Comments Depression Screening 1949 Albumin/Creatinine Ratio 1955 Diabetic Eye Exam 1955 DTaP,Tdap,and Td Vaccines (1 - Tdap) 1956 VITAMIN D LEVEL ONCE IN A LIFETIME-USE SMARTSET# 15929 1977 DXA Scan 1987 Diabetic Foot Exam 10/03/2018 10/03/2017 Influenza Vaccine (FLU shot) (#1) 2023 06/03/2022, 07/03/2017, 07/03/2017 HbA1c 04/28/2024 10/27/2023, 12/0 02/2023, 05/04/2023, Additional history exists B-12 10/19/2024 [...] this encounter Medical Devices Implanted Type Area Camera Machinist Device Identifier Shelf Expiration Date Model / Serial / Lot Bard Peripheral Vascular [place] Vena Cava Filter Implanted:Qty: 1 on 08/23/2017 by Nato Singh DO at RADIOLOGY [facility] Abdomen 06/27/2020 [id number] / [id number] / [id number] Lens Li61ao 13.00mm 22.00 - [id number] - [id number] Implanted:Qty: 1 on 03/21/2023 by Augustine Duong MD at OR [facility] Left: Eye [employer] LOMB 11/26/2027 [id number] 0 / [id number] / [id number] Lens Li61ao 13.00mm 22.00 - [id number] - [id number] Implanted:Qty: 1 on 04/04/2023 by Augustine Duong MD at OR [facility] Right: Eye BAUSCH [employer] LOMB 12/26/2027 [id number] 0 / [id number] / [id number] documented as of this encounter Results * VITAMIN B12 (10/19/2023 8:03 AM EST) Vitamin B12 385 232 - 1,245 pg/mL 10/20/2023 10:22 AM EST LABORATORY [facility] Blood Venous blood specimen / Unknown Venipuncture / Unknown 10/19/2023 8:03 AM EST 10/19/2023 8:15 AM EST Marko Calloway MD LAB BLOOD ORDERABLES Performing Organization Address City/[facility] Co de Phone Number LABORATORY [facility] [address] [place] [address] * FERRITIN (10/19/2023 8:03 AM EST) Ferritin 13 13 - 150 ng/mL 10/20/2023 10:22 AM EST LABORATORY [facility] Comment:Postmenopausal women have higher ferritin levels than pre-menopausal women. The above reference interval is based on pre-menopausal women. Blood Venous blood specimen / Unknown Venipuncture / Unknown 10/19/2023 8:03 AM EST 10/19/2023 8:15 AM EST Marko Calloway MD LAB BLOOD ORDERABLES Performing Organization Address [facility] de Phone Number LABORATORY [facility] [address] [place] [address] documented in this encounter Visit Diagnoses Diagnosis [...] the patient have Health Care Power of Electricity Trading Analyst? No Code Status History Code Status Date Activated Date Inactivated Comments Full Code 08/27/2017 9:48 PM 09/04/2017 4:13 PM This order reflects the patients wishes and were consensually agreed upon. Question Answer Comments Discussion of Advance Directives occurred with: Patient Does the patient have a Living Will? No Does the patient have Health Care Power of Electricity Trading Analyst? No Full Code 08/22/2017 8:14 PM 08/25/2017 7:18 PM Thi s order reflects the patients wishes and were consensually agreed upon. Question Answer Comments Discussion of Advance Directives occurred with: Patient/Family Does the patient have a Living Will? No Does the patient have Health Care Power of Electricity Trading Analyst? No Care Teams Associate Dean Of Women Relationship Specialty Start Date End Date Avelina Douglas CRNP [address] [place] [address] PCP - General Nurse Practitioner 03/16/23 documented as of this encounter
--- OUTSIDE RECORDS SUMMARY | 2023-11-18 11:39 | External Medical Summary | Summary of Care ---
Author Name Unknown Organization [facility] Address [address] [facility] [place] [address] Phone [phone] Care Team Providers Care Physician Aide Name Role Phone Avelina Douglas EMILY Primary Care Provider Encounter Details Date Type Department Care Team (Late st Contact Info) Description 10/20/2023 Orders Only Hematology/Oncology [facility] Tiara Bernardo 200 [facility] [place] [address] Marko Calloway MD [address] [place] [address] Allergies Active Allergy Reactions Criticality Noted Date [...] Active metFORMIN ER (GLUCOPHAGE XR) 500 MG [id number]:Di abetes mellitus type 2, insulin dependent (HCC) [...] 30 Mcg, IM, 12 yrs and above (YuanV) 06/03/2022 Pneumococcal Conjugate Vacc, 13 Valent (Prevnar) [...] 3:00 PM EST Hem/Onc Treatment Hematology/Oncology Treatment, [place] [address] [place] [phone] Tova, Chair 1 Hem Onc Scenery [address] [place] [address] 11/03/2023 12:45 PM EST Hem/Onc Treatment Hematology/Oncology Treatment, [place] 200 [facility] [place], [place] [phone] Tova, Chair 8 Hem Onc [facility] 200 [facility] [place] [address] 11/10/2023 1:00 PM EDT Hem/Onc Treatment [facility]ology[facility], [place] [facility] [address] 11/16/2023 9:45 AM EDT Office Visit Hematology/Oncology [facility] [place] 200 [facility] [place] [address] Marko Calloway MD 200 [facility] [address] 12/08/2023 10:00 AM EDT Laboratory Lab Mobile Phlebotomy [facility] [address] [place] [address] [facility], [facility] Mobile Home Draw [address] [place] [address] 12/11/2023 10:20 AM EDT Office Visit Urogynecology [facility] [address] [place] [address] Andrae Joaquin MD [address] [place] [address] [place], Nurse Urodynamics [address] [place] [address] 01/31/2024 8:30 AM EDT Office Visit Cardiology, [facility] [address] [place] [phone] Darius Stuart PA-C [address] [place] [address] 07/01/2024 8:30 AM EST Cardiac Studies Cardiology, [facility] [address] [place] [address] Danicaolegario Pacer [facility] [address] [place] [address] Health Maintenance Due Date Last Done Comments Depression Screening 1949 Albumin/Creatinine Ratio 1955 Diabetic Eye Exam 1955 DTaP,Tdap,and Td Vaccines (1 - Tdap) 1956 VITAMIN D LEVEL ONCE IN A LIFETIME-USE SMARTSET# 19128 1977 DXA Scan 1987 Diabetic Foot Exam [...] this encounter Medical Devices Implanted Type Area Cementer Machine Device Identifier Shelf Expiration Date Model / Serial / Lot Bard Peripheral Vascular [place] Vena Cava Filter Implanted:Qty: 1 on 08/23/2017 by Nato Singh DO at RADIOLOGY [facility] Abdomen 06/27/2020 [id number] / [id number] / [id number] Lens Li61ao 13.00mm 22.00 - [id number] - [id number] Implanted:Qty: 1 on 03/21/2023 by Augustine Duong MD at OR [facility] Left: Eye [employer]USCH [employer] LOMB 11/26/2027 [id number] 0 / [id number] Lens Li61ao 13.00mm 22.00 - [id number] - [id number] Implanted:Qty: 1 on 04/04/2023 by Augustine Duong MD at OR [facility] Right: Eye BAUSCH & LOMB 12/26/2027 [id number] / [id number] / [id number] documented as of this encounter Advance Directives [...] the patient have Health Care Power of Credit Collection Associate? No Code Status History Code Status Date Activated Date Inactivated Comments Full Code 08/27/2017 9:48 PM 09/04/2017 4:13 PM This order reflects the patients wishes and were consensually agreed upon. Question Answer Comments Discussion of Advance Directives occurred with: Patient Does the patient have a Living Will? No Does the patient have Health Care Power of Credit Collection Associate? No Full Code 08/22/2017 8:14 PM 08/25/2017 7:18 PM Thi s order reflects the patients wishes and were consensually agreed upon. Question Answer Comments Discussion of Advance Directives occurred with: Patient/Family Does the patient have a Living Will? No Does the patient have Health Care Power of Credit Collection Associate? No Care Teams Physician Aide Relationship Specialty Start Date End Date Avelina Douglas CRNP [address] [place] [address] PCP - General Nurse Practitioner 03/16/23 documented as of this encounter
--- OUTSIDE RECORDS SUMMARY | 2023-11-18 11:40 | External Medical Summary ---
Author Name Unknown Address Unknown Organization [id number]:[facility] [place] [address] [address] Laboratory Report Ordering Provider Test Date Status LAVONNE PARRISH 09/14/2023 06:00:00 Final <10,000 colonies/ml mixed no rmal faraz Observation Date Value Abnormality Reference (Units ) Status Bacteria identified in Specimen by Culture 09/14/2023 06:00:00 [id number]^ESCHE RICHIA COLI Abnormal Final 10,000 to 100,000 colonies/m L Escherichia coli Bacteria identified in Specimen by Culture 09/14/2023 06:00:00 [id number]^ESCHERICHIA COLI Abnormal Final 10,000 to 100,000 colonies/m L - second type Escherichia coli Performing Location [facility] [place] [address] [address] Ordering Provider Test Date Status LAVONNE PARRISH 09/14/2023 06:00:00 Final Observation Date Value Abnormality Reference (Units ) Status Ampicillin 09/14/2023 06:00:00 4 Susceptible Final Cefazolin 09/14/2023 06:00:00 <=4 Susceptible Final Cefepime susceptibility 09/14/2023 06:00:00 <=1 Susceptible Final Ceftriaxone suceptibility 09/14/2023 06:00:00 <=1 Susceptible Final Ciprofloxacin 09/14/2023 06:00:00 <=0.25 Susceptible Final Due to serious side effects, the FDA has advised against using Ciprofloxacin to treat uncomplicated UTIs and respiratory tract infections unless there are no alternative treatment options. Gentamicin susceptibility 09/14/2023 06:00:00 <=1 Susc eptible Final Nitrofurantoin susceptibility 09/14/2023 06:00:00 <=16 Susceptible Final Piperacillin + Tazobactamsusceptibility 09/14/2023 06:00:00 <=4 Susceptible Final TMP-SMZ susceptibility 09/14/2023 06:00:00 <=20 Suscept ible Final Performing Location [facility] [place] [address] [place] [id number] Ordering Provider Test Date Status LAVONNE PARRISH 09/14/2023 06:00:00 Final Observation Date Value Abnormality Reference (Units ) Status Ampicillin 09/14/2023 06:00:00 >=32 Resistant Final Ampicillin + Sulbactam 09/14/2023 06:00:00 4 Susceptible Final Cefazolin 09/14/2023 06:00:00 <=4 Susceptible Final Cefepime susceptibility 09/14/2023 06:00:00 <=1 Susceptible Final Ceftriaxone suceptibility 09/14/2023 06:00:00 <=1 Susceptible Final Ciprofloxacin 09/14/2023 06:00:00 1 Resistant Final Due to serious side effects, the FDA has advised against using Ciprofloxacin to treat uncomplicated UTIs and respiratory tract infections unless there are no alternative treatment options. Gentamicin susceptibility 09/14/2023 06:00:00 <=1 Susc eptible Final Levofloxacin susceptibility 09/14/2023 06:00:00 1 In termediate Final Due to serious side effects, the FDA has advised against using Levofloxacin to treat uncomplicated UTIs and respiratory tract infections unless there are no alternative treatment options. Nitrofurantoin susceptibility 09/14/2023 06:00:00 <=16 Susceptible Final Piperacillin + Tazobactamsusceptibility 09/14/2023 06:00:00 <=4 Susceptible Final TMP-SMZ susceptibility 09/14/2023 06:00:00 >=320 Resista nt Final Test: Culture, Urine, Quanti tative
Specimen Source: Urine, Clean Catch
Specimen Type: Urine
Specimen Date: 09/14/2023 6:00 AM
Result Date: 09/17/2023 3:09 PM
Result Status: Final result
Abnormal: Yes
Resulting Lab: [facility] [place]
[address]
[place] [id number]

CULTURE

10,000 to 100,000 colonies/mL Escherichia coli (Abnormal)

10,000 to 100,000 colonies/mL - second type Escherichia coli (Abnormal)

<10,000 colonies/ml mixed normal faraz

SUSCEPTIBILITY

Escherichia coli (1) Escherichia coli (2)
METHOD MICROBROTH DILUTIONS MICROBROTH DILUTIONS

AMPICILLIN 4 Susceptible >=32 Resistant
AMPICILLIN/SULBACTAM 4 Susceptible
CEFAZOLIN <=4 Susceptible <=4 Susceptible
CEFEPIME <=1 Susceptible <=1 Susceptible
CEFTRIAXONE <=1 Susceptible <=1 Susceptible
CIPROFLOXACIN <=0.25 Susceptible [1] 1 Resistant [2]
GENTAMICIN <=1 Susceptible <=1 Susceptible
LEVOFLOXACIN 1 Intermediate [3]
NITROFURANTOIN <=16 Susceptible <=16 Susceptible
PIPERACILLIN TAZOBACTAM <=4 Susceptible <=4 Susceptible
TRIMETH/SULFAMETHOXAZOLE <=20 Susceptible >=320 Resistant

[1] Due to serious side effects, the FDA has advised against using
Ciprofloxacin to treat uncomplicated UTIs and respiratory tract infections
unless there are no alternative treatment options.

[2] Due to serious side effects, the FDA has advised against using
Ciprofloxacin to treat uncomplicated UTIs and respiratory tract infections
unless there are no alternative treatment options.

[3] Due to serious side effects, the FDA has advised against using
Levofloxacin to treat uncomplicated UTIs and respiratory tract infections
unless there are no alternative treatment options.

null Performing Location [facility] [place] [address] [facility] [address]
--- OUTSIDE RECORDS SUMMARY | 2023-11-18 11:40 | External Medical Summary ---
Author Name Unknown Address Unknown Organization K01:[facility] [place] [address] [place] [address] Laboratory Report Ordering Provider Test Date Status FRANKIE BERKOWITZ 09/07/2023 07:50:00 Final Observation Date Value Abnormality Reference (Units ) Status Ferritin 09/07/2023 07:50:00 19 13-150 (ng /mL) Final Postmenopausal women have hi gher ferritin levels than pre-menopausal women. The above reference interval is based on pre-menopausal women. Performing Location [facility] [place] - [address] [place] [address]
--- OUTSIDE RECORDS SUMMARY | 2023-11-18 11:40 | External Medical Summary ---
Author Name Unknown Address Unknown Organization K0G[facility] [address] [place] [address] Laboratory Report Ordering Provider Test Date Status FRANKIE BERKOWITZ 2023 06:27:00 Final Observation Date Value Abnormality Reference (Units ) Status WBC, Total 2023 06:27:00 6.78 4.00-10.8 0 (K/uL) Final RBC 2023 06:27:00 3.71 3.85-5.15 (M/uL) Final Hemoglobin 2023 06:27:00 9.6 Below low normal 12 .0-15.3 (g/dL) Final HCT 2023 06:27:00 32.9 Below low normal 36. 0-45.2 (%) Final MCV 2023 06:27:00 88.7 81.5-97.5 (fL) Final MCH 2023 06:27:00 25.9 27.0-34.0 (pg) Final MCHC 2023 06:27:00 29.2 32.0-36.0 (g/dL) Final RDW 2023 06:27:00 20.0 11.5-15.5 (%) Final Platelets 2023 06:27:00 312 140-400 (K /uL) Final MPV 2023 06:27:00 9.8 6.6-11.1 ( fL) Final [facility] [address] [place] [address]
--- OUTSIDE RECORDS SUMMARY | 2023-11-18 11:40 | External Medical Summary ---
Author Name Unknown Address Unknown Organization K01:[facility] [place] - [address] [place] [address] Laboratory Report Ordering Provider Test Date Status FRANKIE BERKOWITZ 09/07/2023 07:50:00 Final Observation Date Value Abnormality Reference (Units ) Status Iron 09/07/2023 07:50:00 15 Below low normal 33-151 (ug/dL) Final Iron-binding capacity 09/07/2023 07:50:00 305 250-425 (ug/dL) Final Transferrin Sat % 09/07/2023 07:50:00 5 Below low normal 15-55 (%) Final Performing Location [facility] [place] - [address] [place] [address]
--- OUTSIDE RECORDS SUMMARY | 2023-11-18 11:40 | External Medical Summary | Summary of Care ---
Author Name Unknown Organization [facility] Address [address] [address] Phone [phone] Care Team Providers Care Payroll Bookkeeper Name Role Phone StellaJoanne luqueemmy DIAZ Primary Care Provider Reason for Visit * Reason Onset Date Comments Appointment 09/01/2023 [facility] appointment Encounter Details Date Type Department Care Team (Late st Contact Info) Description 09/01/2023 Telephone [address]iology, [facility] [address] [facility] [place] [address] Krysta Buenrostro [facility] [address] [facility] [place] [address] Appointment ([facility] appointment ) Allergies Active Allergy Reactions Criticality Noted Date Comments Levofloxacin Other (Please comment) 05/26/2017 Cramping pains Nitrofurantoin Nausea/vomiting,Othe r (Please comment) 08/26/2022 Dizziness Propofol Nausea/vomiting 01/03/2018 documented as of this encounter (statuses as of 09/01/2023) Medications Medication Sig Dispensed Refills Start Date [...] Active metFORMIN ER (GLUCOPHAGE XR) 500 MG [id number]:Di abetes mellitus type 2, insulin dependent (HCC) [...] the morning. 90 Tablet 3 01/13/2023 Active Estradiol 0.1 MG/GM Vaginal Cream (Estrace) Apply pea sized amount (0.5 mg) vaginally every other night at bedtime 42.5 g 3 02/15/2023 Active Fluconazole 150 MG Oral Tablet (Diflucan) Take 1 Tablet by mouth once a week. 4 Tablet 0 04/18/2023 Active Additional Information Patient not taking.Reported on 07/17/2023 Losartan Potassium 25 MG Oral Tablet (Cozaar)Indication [...] before bedtime. 180 Tablet 3 07/17/2023 Active documented as of this encounter (statuses as of 09/01/2023) Active Problems Problem Noted Date Diagnosed Date [...] as of this encounter (statuses as of 09/01/2023) Immunizations Name Administration Dates Next Due COVID-19 [...] encounter Miscellaneous Notes * Telephone Encounter - Argentina Dudley LPN - 09/01/2023 12:42 PM EST MyG message sent to patient regarding appointment scheduled 09/07/2023. In clinic appointment not indicated at this time, device being monitored remotely documented in this encounter Plan of Treatment Upcoming Encounters Date Type Department Care Team (Late st Contact Info) Description 09/07/2023 9:30 AM EST Cardiac Studies Cardiology, [facility] [address] [place] [address] Krysta Buenrostro [facility] [address] [place] [address] 09/18/2023 1:15 PM EST Office Visit Urogynecology [facility] [address] [place] [address] Andrae Joaquin MD [address] [place] [address] Nurse Rashard Urojanis [facility] [address] [place] [address] 01/31/2024 8:30 AM EDT Office Visit Cardiology, [facility] [address] [place] [address] Darius Stuart PA-C [address] [place] [address] 07/01/2024 8:30 AM EST Cardiac Studies Cardiology, [facility] [address] [place] [address] [facility] [address] [place] [address] Health Maintenance Due Date Last Done Comments Depression Screening 1947 Albumin/Creatinine Ratio 1955 Diabetic Eye Exam 1955 DTaP,Tdap,and Td Vaccines (1 - Tdap) 1956 VITAMIN D LEVEL ONCE IN A LIFETIME-USE SMARTSET# 51521 1977 DXA Scan 1987 Hepatitis B (1 [...] this encounter Medical Devices Implanted Type Area Candle Maker Device Identifier Shelf Expiration Date Model / Serial / Lot Bard Peripheral Vascular [place] Vena Cava Filter Implanted:Qty: 1 on 08/23/2017 by Nato Singh DO at RAD[facility] [place] Abdomen 06/27/2020 [id number] / [id number] / [id number] Lens Li61ao 13.00mm 22.00 - [id number] - [id number] Implanted:Qty: 1 on 03/21/2023 by Augustine Duong MD at [facility] Left: Eye [employer] 11/26/2027 [id number] 0 / [id number] / [id number] Lens Li61ao 13.00mm 22.00 - [id number] - [id number] Implanted:Qty: 1 on 04/04/2023 by Augustine Duong MD at OR [facility] Right: Eye [employer]OMB 12/26/2027 [id number] / [id number] / [id number] documented as of this encounter Advance Directives [...] the patient have Health Care Power of Web Systems Developer? No Code Status History Code Status Date Activated Date Inactivated Comments Full Code 08/27/2017 9:48 PM 09/04/2017 4:13 PM This order reflects the patients wishes and were consensually agreed upon. Question Answer Comments Discussion of Advance Directives occurred with: Patient Does the patient have a Living Will? No Does the patient have Health Care Power of Web Systems Developer? No Full Code 08/22/2017 8:14 PM 08/25/2017 7:18 PM Thi s order reflects the patients wishes and were consensually agreed upon. Question Answer Comments Discussion of Advance Directives occurred with: Patient/Family Does the patient have a Living Will? No Does the patient have Health Care Power of Web Systems Developer? No Care Teams Payroll Bookkeeper Relationship Specialty Start Date End Date Avelina Douglas CRNP [address] [address] PCP - General Nurse Practitioner 03/16/23 documented as of this encounter
--- OUTSIDE RECORDS SUMMARY | 2023-11-18 11:40 | External Medical Summary | Summary of Care ---
Author Name Unknown Organization [facility] Address [address] [address] Phone [phone] Care Team Providers Care Lace Burn Out Tender Name Role Phone Avelina Douglas EMILY Primary Care Provider Encounter Details Date Type Department Care Team (Late st Contact Info) Description 09/22/2023 Result Scan Unspecified Department Cole Holliday MD [address] [place] [address] <No scans attached> Allergies Active Allergy Reactions Criticality Noted Date Comments Levofloxacin Other (Please comment) 05/26/2017 Cramping pains Nitrofurantoin Nausea/vomiting,Othe r (Please comment) 08/26/2022 Dizziness Propofol Nausea/vomiting 01/03/2018 documented as of this encounter (statuses as of 09/22/2023) Medications Medication Sig Dispensed Refills Start Date [...] Active metFORMIN ER (GLUCOPHAGE XR) 500 MG [id number]:Di abetes mellitus type 2, insulin dependent (HCC) [...] at bedtime 42.5 g 3 02/15/2023 Active Losartan Potassium 25 MG Oral Tablet [...] before bedtime. 180 Tablet 3 07/17/2023 Active Cephalexin 500 MG Oral Capsule (Keflex) Take 1 Capsule by mouth in the morning and 1 Capsule before bedtime. Do all this for 7 days. Until gone.. 14 Capsule 0 09/15/2023 Active Fluconazole 150 MG Oral Tablet (Diflucan) Take 1 Tablet by mouth once a week. 4 Tablet 0 09/15/2023 Active documented as of this encounter (statuses as of 09/22/2023) Active Problems Problem Noted Date Diagnosed Date [...] as of this encounter (statuses as of 09/22/2023) Immunizations Name Administration Dates Next Due COVID-19 mRNA, LNP-s, No Pre serve, 2-Dose Series (Moderna) 05/10/2021,10/25/2020,09/20/2020 Covid-19, Mrna, Lnp-s, Pf, B ivalent, 30 Mcg, IM, 12 yrs and above (OneTouchEMR) 06/03/2022 Pneumococcal Conjugate Vacc, 13 Valent (Prevnar) [...] 1:15 PM EST Office Visit Urogynecology Lisandro Wetzel [address] [place] [address] Andrae Joaquin MD [address] [place] [address] WetzelNurse jodi Urojanis [facility] [address] [place] [address] 01/31/2024 8:30 AM EDT Office Visit Cardiology, [facility] [address] [place] [address] Darius Stuart PA-C [address] [place] [address] 07/01/2024 8:30 AM EST Cardiac Studies Cardiology, [facility] [address] [place] [address] Krysta Buenrostro [facility] [address] [place] [address] Health Maintenance Due Date Last Done Comments Depression Screening 1949 Albumin/Creatinine Ratio 1955 Diabetic Eye Exam 1955 DTaP,Tdap,and Td Vaccines (1 - Tdap) 1956 VITAMIN D LEVEL ONCE IN A LIFETIME-USE SMARTSET# 66611 1977 DXA Scan 1987 Hepatitis B (1 [...] this encounter Medical Devices Implanted Type Area Pit Recorder Device Identifier Shelf Expiration Date Model / Serial / Lot Bard Peripheral Vascular [place] Vena Cava Filter Implanted:Qty: 1 on 08/23/2017 [place] Nato Singh DO [place] [facility] 06/27/2020 [id number] / [id number] / [id number] Lens Li61ao 13.00mm 22.00 - [id number] - [id number] Implanted:Qty: 1 on 03/21/2023 by Augustine Duong MD at OR [facility] Left: Eye [employer]OM[employer] 11/26/2027 [id number] 0 / [id number] / [id number] Lens Li61ao 13.00mm 22.00 - [id number] - [id number] Implanted:Qty: 1 on 04/04/2023 by Augustine Duong MD at OR [facility] Right: Eye [employer]CH [employer]OMB 12/26/2027 [id number] / [id number] / [id number] documented as of this encounter Procedures Procedure Name Priority Date/Time Associated Diagnosis Comments CARDIOLOGY SCANNED RESULT 09/22/2023 documented in this encounter Results * CARDIOLOGY SCANNED RESULT (09/22/2023) 09/22/2023 Cole Holliday MD OTHER documented in this encounter Advance Directives Latest Code Status on File Code Status Date Activated Date Inactivated Comments No Code 03/21/2023 10:19 AM 03/21/2023 4:27 PM This order reflects the patients wishes and were consensually agreed upon. Question Answer Comments Discussion of Advance Directives occurred with: Patient Does the patient have a Living Will? No Does the patient have Health Care Power of Shearing Machine Operator? No Code Status History Code Status Date Activated Date Inactivated Comments Full Code 08/27/2017 9:48 PM 09/04/2017 4:13 PM This order reflects the patients wishes and were consensually agreed upon. Question Answer Comments Discussion of Advance Directives occurred with: Patient Does the patient have a Living Will? No Does the patient have Health Care Power of Shearing Machine Operator? No Full Code 08/22/2017 8:14 PM 08/25/2017 7:18 PM Thi s order reflects the patients wishes and were consensually agreed upon. Question Answer Comments Discussion of Advance Directives occurred with: Patient/Family Does the patient have a Living Will? No Does the patient have Health Care Power of Shearing Machine Operator? No Care Teams Lace Burn Out Tender Relationship Specialty Start Date End Date Avelina Douglas CRNP [address] [place] [address] PCP - General Nurse Practitioner 03/16/23 documented as of this encounter
--- OUTSIDE RECORDS SUMMARY | 2023-11-18 11:40 | External Medical Summary | Summary of Care ---
Author Name Unknown Organization [facility] Address [address] [facility] [place] [address] Phone [phone] Care Team Providers Care Tile Shader Name Role Phone Avelina Douglas EMILY Primary Care Provider Reason for Visit * Reason Onset Date Comments Urinary Tract Infection Symptoms 09/08/2023 Encounter Details Date Type Department Care Team (Late st Contact Info) Description 09/08/2023 Telephone Urogynecology [facility] [address] [place] [address] Andrae Joaquin MD [address] [place] [id number] Urinary Tract Infection Symptoms Allergies Active Allergy Reactions Criticality Noted Date Comments Levofloxacin Other (Please comment) 05/26/2017 Cramping pains Nitrofurantoin Nausea/vomiting,Othe r (Please comment) 08/26/2022 Dizziness Propofol Nausea/vomiting 01/03/2018 documented as of this encounter (statuses as of 09/15/2023) Medications Medication Sig Dispensed Refills Start Date [...] Active metFORMIN ER (GLUCOPHAGE XR) 500 MG [id number]:D iabetes mellitus type 2, insulin dependent (HCC) [...] days. Until gone.. 14 Capsule 0 09/15/2023 4 Active Fluconazole 150 MG Oral Tablet (Diflucan) Take 1 Tablet by mouth once a week. 4 Tablet 0 09/15/2023 Active Fluconazole 150 MG Oral Tablet (Diflucan) Take 1 Tablet by mouth once a week. 4 Tablet 0 04/18/2023 4 Discontinue d(Refill) documented as of this encounter (statuses as of 09/15/2023) Active Problems Problem Noted Date Diagnosed Date [...] as of this encounter (statuses as of 09/15/2023) Immunizations Name Administration Dates Next Due COVID-19 [...] encounter Miscellaneous Notes * Telephone Encounter - Carol Gaytan MED ASSIST - 09/15/2023 3:06 PM EST Appt rescheduled, pt aware * Addendum Note - Andrae Joaquin MD - 09/15/2023 2:18 PM ESTAddended by: ANDRAE JOAQUIN on: 09/15/2023 02:18 PM Modules accepted: Orders * Telephone Encounter - Daiana Shukla LPN - 09/15/2023 12:17 PM EST Appt with Dr. Joaquin on 09/18 needs rescheduled per patient. She is covid + and is not leaving her house at all next week. Please assist * Telephone Encounter - Daiana Shukla LPN - 09/15/2023 12:16 PM EST Patient called with c/o vaginal itching and burning. She had urine culture collected and is in process. She thinks she has a yeast infection, advised that urine culture would not diagnose a yeast infection. Patient asking for treatment. Previously routed to Dr. Joaquin, will include Manuela. * Telephone Encounter - Daiana Shukla LPN - 09/14/2023 4:42 PM EST Patient called asking if she is going to get an Rx for her urinary concern. * Telephone Encounter - Marry Weaver RN - 09/08/2023 2:03 PM EST pt wants urine culture faxed to [phone] Done with receipt of confirmation Marry M Herness, RN * Telephone Encounter - Marry Weaver RN - 09/08/2023 11:59 AM EST Requesting urine culture for dysuria " from itching" Lives at [facility]---they have mobile phlebotomy that comes out and coming 09/14/2023-denies fever and low back pain- Aware does not mean UTI---pt still wants urine culture--she is aware if the [facility] needs the order--we can fax it to them---our number provided. Marry Weaver RN documented in this encounter Plan of Treatment Upcoming Encounters Date Type Department Care Team (Late st Contact Info) Description 10/09/2023 1:15 PM EST Office Visit Urogynecology [facility] [address] [place] [address] Andrae Joaquin MD [address] [place] [address] Nurse Ayaan Wetzel [address] [place] [address] 01/31/2024 8:30 AM EDT [facility] [address] [place] [address] Darius Stuart PA-C [address] [place] [address] 07/01/2024 8:30 AM EST Cardiac Studies Cardiology, [facility] [address] [place] [address] [facility] Raji Wetzel [address] [place] [address] Pending Results Name Type Priority Associated Diagnoses Date /Time CULTURE, URINE, QUANTITATIVE Lab Routine Dysuria 09/14/2023 6:00 AM EST Health Maintenance Due Date Last Done Comments Depression Screening 1947 Albumin/Creatinine Ratio 1955 Diabetic Eye Exam 1955 DTaP,Tdap,and Td Vaccines (1 - Tdap) 1956 VITAMIN D LEVEL ONCE IN A LIFETIME-USE SMARTSET# 37219 1977 DXA Scan 1987 Hepatitis B (1 of 3 - Risk 3-dose series) 1997 Diabetic Foot Exam 10/03/2018 10/03/2017 Influenza Vaccine (FLU shot) (#1) 2023 06/03/2022, 07/03/2017, 07/03/2017 B-12 08/26/2023 08/26/2022 HbA1c 02/02/2024 2023, 0 02/2023, 11/10/2022, Additional history exists Pneumococcal Vaccine: [...] this encounter Medical Devices Implanted Type Area Lining Sewer Device Identifier Shelf Expiration Date Model / Serial / Lot Bard Peripheral Vascular Alyssa Vena Cava Filter Implanted:Qty: 1 on 08/23/2017 by Nato Singh DO at [facility] Abdomen 06/27/2020 [id number] / [id number] / [id number] Lens Li61ao 13.00mm 22.00 - [id number] - [id number] Implanted:Qty: 1 on 03/21/2023 by Augustine Duong MD at OR [facility] Left: Eye [employer]OMB 11/26/2027 [id number] 0 / [id number] Lens Li61ao 13.00mm 22.00 - [id number] - [id number] Implanted:Qty: 1 on 04/04/2023 by Augustine Duong MD at [facility] Right: Eye BAUSCH & LOMB 12/26/2027 [id number] / [id number] / [id number] documented as of this encounter Visit Diagnoses Diagnosis Dysuria- Primary documented in this encounter Advance Directives Latest Code Status on File Code Status Date Activated Date Inactivated Comments No Code 03/21/2023 10:19 AM 03/21/2023 4:27 PM This order reflects the patients wishes and were consensually agreed upon. Question Answer Comments Discussion of Advance Directives occurred with: Patient Does the patient have a Living Will? No Does the patient have Health Care Power of Manager Document Control? No Code Status History Code Status Date Activated Date Inactivated Comments Full Code 08/27/2017 9:48 PM 09/04/2017 4:13 PM This order reflects the patients wishes and were consensually agreed upon. Question Answer Comments Discussion of Advance Directives occurred with: Patient Does the patient have a Living Will? No Does the patient have Health Care Power of Manager Document Control? No Full Code 08/22/2017 8:14 PM 08/25/2017 7:18 PM Thi s order reflects the patients wishes and were consensually agreed upon. Question Answer Comments Discussion of Advance Directives occurred with: Patient/Family Does the patient have a Living Will? No Does the patient have Health Care Power of Manager Document Control? No Care Teams Tile Shader Relationship Specialty Start Date End Date Avelina Douglas CRNP [address] [address] PCP - General Nurse Practitioner 03/16/23 documented as of this encounter
--- OUTSIDE RECORDS SUMMARY | 2023-11-18 11:40 | External Medical Summary | Summary of Care ---
Author Name Unknown Organization [facility] Address [address] [facility] [address] Phone [phone] Care Team Providers Care Pull Worker Name Role Phone Joanne Douglasemmy Altmaner EMILY Primary Care Provider Encounter Details Date Type Department Care Team (Late st Contact Info) Description 09/12/2023 Orders Only PATIENT PORTAL DO NOT DELETE THIS DEPT USED BY [place] [id number] Allergies Active Allergy Reactions Criticality Noted Date Comments Levofloxacin Other (Please comment) 05/26/2017 Cramping pains Nitrofurantoin Nausea/vomiting,Othe r (Please comment) 08/26/2022 Dizziness Propofol Nausea/vomiting 01/03/2018 documented as of this encounter (statuses as of 09/12/2023) Medications Medication Sig Dispensed Refills Start Date [...] Active metFORMIN ER (GLUCOPHAGE XR) 500 MG [id number]:Di abetes mellitus type 2, insulin dependent (HCC) [...] as of this encounter (statuses as of 09/12/2023) Active Problems Problem Noted Date Diagnosed Date [...] as of this encounter (statuses as of 09/12/2023) Immunizations Name Administration Dates Next Due COVID-19 [...] Care Team (Late st Contact Info) Description 09/18/2023 1:15 PM EST Office Visit Urogynecology Lisandro Wetzel [address] [place] [address] Andrae Joaquin MD [address] [place] [address] Nurse Ayaan Wetzel [address] [place] [address] 01/31/2024 8:30 AM EDT Office Visit Cardiology, [facility] [address] [place] [address] Darius Stuart PA-C [address] [place] [address] 07/01/2024 8:30 AM EST Cardiac Studies Cardiology, [facility] [address] [place] [address] [place] [address] [place] [address] Health Maintenance Due Date Last Done Comments Depression Screening 1949 Albumin/Creatinine Ratio 1955 Diabetic Eye Exam 1955 DTaP,Tdap,and Td Vaccines (1 - Tdap) 1956 VITAMIN D LEVEL ONCE IN A LIFETIME-USE SMARTSET# [id number] 1977 DXA Scan 1987 Hepatitis B (1 [...] this encounter Medical Devices Implanted Type Area Bodywork Therapist Device Identifier Shelf Expiration Date Model / Serial / Lot Bard Peripheral Vascular Alyssa Vena Cava Filter Implanted:Qty: 1 on 08/23/2017 by Nato Singh DO at [facility] [facility] [place]en 06/27/2020 [id number] / [id number] / [id number] Lens Li61ao 13.00mm 22.00 - [id number] - [id number] Implanted:Qty: 1 on 03/21/2023 by Augustine Duong MD at OR [facility] Left: Eye BAUSCH [employer] LOMB 11/26/2027 [id number] 0 / [id number] / [id number] Lens Li61ao 13.00mm 22.00 - [id number] - [id number] Implanted:Qty: 1 on 04/04/2023 by Augustine Duong MD at OR [facility] Right: Eye BAUSCH [employer] LOMB 12/26/2027 [id number] 0 / [id number] / [id number] documented as of this encounter Advance Directives [...] the patient have Health Care Power of Piece Goods Clerk? No Code Status History Code Status Date Activated Date Inactivated Comments Full Code 08/27/2017 9:48 PM 09/04/2017 4:13 PM This order reflects the patients wishes and were consensually agreed upon. Question Answer Comments Discussion of Advance Directives occurred with: Patient Does the patient have a Living Will? No Does the patient have Health Care Power of Piece Goods Clerk? No Full Code 08/22/2017 8:14 PM 08/25/2017 7:18 PM Thi s order reflects the patients wishes and were consensually agreed upon. Question Answer Comments Discussion of Advance Directives occurred with: Patient/Family Does the patient have a Living Will? No Does the patient have Health Care Power of Piece Goods Clerk? No Care Teams Pull Worker Relationship Specialty Start Date End Date vAelina Douglas CRNP [address] [place] [address] PCP - General Nurse Practitioner 03/16/23 documented as of this encounter
--- OUTSIDE RECORDS SUMMARY | 2023-11-18 11:40 | External Medical Summary ---
Author Name Unknown Address Unknown Organization K01:[facility] - [facility] [address] [facility] [address] Laboratory Report Ordering Provider Test Date Status FRANKIE BERKOWITZ 2023 06:27:00 Final Observation Date Value Abnormality Reference (Units ) Status HbA1C 2023 06:27:00 6.4 Above high normal 4. 0-5.6 (%) Final The use of HbA1c to monitor glycemic status is based on normal hemoglobin and HbA composition. This test should not be used in patients with abnormal hemoglobin that affects the half life of the red blood cell or the in vivo glycation rates. Glucose, estimated average 2023 06:27:00 137 Above high normal <126 (mg/dL) Sridhar liriano Performing Location [facility] - [address] [facility] [address]
--- OUTSIDE RECORDS SUMMARY | 2023-11-18 11:40 | External Medical Summary | Summary of Care ---
Author Name Unknown Organization [facility] Address [address] [facility] [place] [address] Phone [phone] Care Team Providers Care Kiln Operator Helper Name Role Phone Avelina Douglas EMILY Primary Care Provider Reason for Visit * Reason Onset Date Comments Urinary Tract Infection Symptoms 09/08/2023 Encounter Details Date Type Department Care Team (Late st Contact Info) Description 09/08/2023 Telephone Urogynecology [facility] [address] [place] [address] Andrae Joaquin MD [address] [place] [phone] Urinary Tract Infection Symptoms Allergies Active Allergy [...] Active metFORMIN ER (GLUCOPHAGE XR) 500 MG CY54Mxjjsqpoobn:Di abetes mellitus type 2, insulin dependent (HCC) [...] EST pt wants urine culture faxed to [phone] Done with receipt of confirmation Marry Weaver RN * Telephone Encounter - Marry Weaver RN - 09/08/2023 11:59 AM EST Requesting urine culture for dysuria " from itching" Lives at the [facility]---they have mobile phlebotomy that comes out and coming 09/14/2023-denies fever and low back pain- Aware does not mean UTI---pt still wants urine culture--she is aware if the [facility] needs the order--we can fax it to them---our number provided. Marry Weaver RN documented in this encounter Plan of Treatment Upcoming Encounters Date Type Department Care Team (Late st Contact Info) Description 09/18/2023 1:15 PM EST [facility] [address] [place] [address] Andrae Joaquin MD [address] [place] [address] Nurse Ayaan Wetzel [address] [place] [address] 01/31/2024 8:30 AM EDT Office Visit Cardiology, [facility] [address] [place] [address] Darius Stuart PA-C [address] [place] [address] 07/01/2024 8:30 AM EST Cardiac Studies Cardiology, [facility] [address] [place] [address] Krysta Buenrostro [facility] [address] [place] [address] Pending Results Name Type Priority Associated Diagnoses Date /Time CULTURE, URINE, QUANTITATIVE Lab Routine Dysuria 09/14/2023 6:00 AM EST Scheduled Orders Name Type Priority Associated Diagnoses Orde r Schedule CULTURE, URINE, QUANTITATIVE Lab Routine Dysuria Expected: 09/14/2023, Expires: 09/27/2023 Health Maintenance Due Date Last Done Comments Depression Screening 1949 Albumin/Creatinine Ratio 1955 Diabetic Eye Exam 1955 DTaP,Tdap,and Td Vaccines (1 - Tdap) 1956 VITAMIN D LEVEL ONCE IN A LIFETIME-USE SMARTSET# [id number] 1977 DXA Scan 1987 Hepatitis B (1 [...] this encounter Medical Devices Implanted Type Area Member Services Representative Device Identifier Shelf Expiration Date Model / Serial / Lot Bard Peripheral Vascular Alyssa Vena Cava Filter Implanted:Qty: 1 on 08/23/2017 by Nato Singh DO at [facility] Abdomen 06/27/2020 [id number] / [id number] / [id number] Lens Li61ao 13.00mm 22.00 - [id number] - [id number] Implanted:Qty: 1 on 03/21/2023 by Augustine Duong MD at OR [facility] Left: Eye BAUSCH & LOMB 11/26/2027 [id number] 0 / [id number] / [id number] Lens Li61ao 13.00mm 22.00 - [id number] - [id number] Implanted:Qty: 1 on 04/04/2023 by Augustine Duong MD at OR [facility] Right: Eye BAUSCH & LOMB 12/26/2027 [id number] 0 / [id number] / [id number] documented as of this encounter Visit Diagnoses [...] the patient have Health Care Power of Medical Laboratory Technician? No Code Status History Code Status Date Activated Date Inactivated Comments Full Code 08/27/2017 9:48 PM 09/04/2017 4:13 PM This order reflects the patients wishes and were consensually agreed upon. Question Answer Comments Discussion of Advance Directives occurred with: Patient Does the patient have a Living Will? No Does the patient have Health Care Power of Medical Laboratory Technician? No Full Code 08/22/2017 8:14 PM 08/25/2017 7:18 PM Thi s order reflects the patients wishes and were consensually agreed upon. Question Answer Comments Discussion of Advance Directives occurred with: Patient/Family Does the patient have a Living Will? No Does the patient have Health Care Power of Medical Laboratory Technician? No Care Teams Kiln Operator Helper Relationship Specialty Start Date End Date Avelina Douglas CRNP [address] [place] [address] PCP - General Nurse Practitioner 03/16/23 documented as of this encounter
--- OUTSIDE RECORDS SUMMARY | 2023-11-18 11:40 | External Medical Summary | Summary of Care ---
Author Name Unknown Organization [facility] Address [address] [facility] [place] [address] Phone [phone] Care Team Providers Care Oven Builder Name Role Phone Avelina Douglas EMILY Primary Care Provider Reason for Visit * Reason Onset Date Comments Urinary Tract Infection Symptoms 09/08/2023 Encounter Details Date Type Department Care Team (Late st Contact Info) Description 09/08/2023 Telephone Urogynecology [facility] [address] [place] [address] Andrae Joaquin MD [address] [place] [phone] Urinary Tract Infection Symptoms Allergies Active Allergy [...] Active metFORMIN ER (GLUCOPHAGE XR) 500 MG [id number]:D iabetes mellitus type 2, insulin dependent (HCC) [...] encounter Miscellaneous Notes * Addendum Note - Andrae Joaquin MD [...] EST pt wants urine culture faxed to [phone] Done with receipt of confirmation Marry Weaver RN * Telephone Encounter - Marry Weaver RN - 09/08/2023 11:59 AM EST Requesting urine culture for dysuria " from itching" Lives at the [place]---they have mobile phlebotomy that comes out and coming 09/14/2023-denies fever and low back pain- Aware does not mean UTI---pt still wants urine culture--she is aware if the [facility] needs the order--we can fax it to them---our number provided. Marry Weaver, RN documented in this encounter Plan of Treatment Upcoming Encounters Date Type Department Care Team (Late st Contact Info) Description 09/18/2023 1:15 PM EST Office Visit Urogynecology [facility] [address] [place] [address] Andrae Joaquin MD [address] [place] [address] Nurse Ayaan Wetzel [place] [address] [place] [address] 01/31/2024 8:30 AM EDT Office Visit Cardiology, [facility] [address] [place] [address] Darius Stuart PAUrban [address] [place] [address] 07/01/2024 8:30 AM EST Cardiac Studies Cardiology, [facility] [address] [place] [address] [place] [address] [place] [address] Pending Results Name Type Priority Associated Diagnoses Date /Time CULTURE, URINE, QUANTITATIVE Lab Routine Dysuria 09/14/2023 6:00 AM EST Health Maintenance Due Date Last Done Comments Depression Screening 1949 Albumin/Creatinine Ratio 1955 Diabetic Eye Exam 1955 DTaP,Tdap,and Td Vaccines (1 - Tdap) 1956 VITAMIN D LEVEL ONCE IN A LIFETIME-USE SMARTSET# [id number] 1977 DXA Scan 1987 Hepatitis B (1 [...] this encounter Medical Devices Implanted Type Area Job Order Clerk Device Identifier Shelf Expiration Date Model / Serial / Lot Bard Peripheral Vascular Alyssa Vena Cava Filter Implanted:Qty: 1 on 08/23/2017 by Nato Singh DO at [facility]Y [facility] Abdomen 06/27/2020 [id number] / [id number] / [id number] Lens Li61ao 13.00mm 22.00 - [id number] - [id number] Implanted:Qty: 1 on 03/21/2023 by Augustine Duong MD at OR [facility] Left: Eye BAUSCH & LOMB 11/26/2027 [id number] / [id number] / [id number] Lens Li61ao 13.00mm 22.00 - [id number] - [id number] Implanted:Qty: 1 on 04/04/2023 by Augustine Duong MD at OR [facility] Right: Eye BAUSCH & LOMB 12/26/2027 [id number] / [id number] / [id number] documented as of this encounter Visit Diagnoses [...] the patient have Health Care Power of Attendant Honor Bar? No Code Status History Code Status Date Activated Date Inactivated Comments Full Code 08/27/2017 9:48 PM 09/04/2017 4:13 PM This order reflects the patients wishes and were consensually agreed upon. Question Answer Comments Discussion of Advance Directives occurred with: Patient Does the patient have a Living Will? No Does the patient have Health Care Power of Attendant Honor Bar? No Full Code 08/22/2017 8:14 PM 08/25/2017 7:18 PM Thi s order reflects the patients wishes and were consensually agreed upon. Question Answer Comments Discussion of Advance Directives occurred with: Patient/Family Does the patient have a Living Will? No Does the patient have Health Care Power of Attendant Honor Bar? No Care Teams Oven Builder Relationship Specialty Start Date End Date Avelina Douglas CRNP [address] [address] PCP - General Nurse Practitioner 03/16/23 documented as of this encounter
--- OUTSIDE RECORDS SUMMARY | 2023-11-18 11:40 | External Medical Summary | Summary of Care ---
Author Name Unknown Organization [facility] Address [address] [facility] [address] Phone [phone] Care Team Providers Care Primary Therapist Name Role Phone Avelina Douglas EMILY Primary Care Provider Encounter Details Date Type Department Care Team (Late st Contact Info) Description 10/02/2023 Result Scan Unspecified Department Cole Holliday MD [address] [place] [address] <No scans attached> Allergies Active Allergy Reactions Criticality Noted Date Comments Levofloxacin Other (Please comment) 05/26/2017 Cramping pains Nitrofurantoin Nausea/vomiting,Othe r (Please comment) 08/26/2022 Dizziness Propofol Nausea/vomiting 01/03/2018 documented as of this encounter (statuses as of 10/02/2023) Medications Medication Sig Dispensed Refills Start Date [...] Active metFORMIN ER (GLUCOPHAGE XR) 500 MG [id number]:Di abetes mellitus type 2, insulin dependent (HCC) [...] as of this encounter (statuses as of 10/02/2023) Active Problems Problem Noted Date Diagnosed Date [...] as of this encounter (statuses as of 10/02/2023) Immunizations Name Administration Dates Next Due COVID-19 [...] Urogynecology Lisandro Wetzel [address] [place] [address] Andrae Joaquin MD [address] [place] [address] Nurse Ayaan Wetzel [address] [place] [address] 01/31/2024 8:30 AM EDT Office Visit Cardiology, [facility] [address] [place] [address] Darius Stuart PA-C [address] [place] [address] 07/01/2024 8:30 AM EST Cardiac Studies Cardiology, [facility] [address] [place] [address] [place] [address] [place] [address] Health Maintenance Due Date Last Done Comments Depression Screening 1949 Albumin/Creatinine Ratio 1955 Diabetic Eye Exam 1955 DTaP,Tdap,and Td Vaccines (1 - Tdap) 1956 VITAMIN D LEVEL ONCE IN A LIFETIME-USE SMARTSET# [id number] 1977 DXA Scan 1987 Hepatitis B (1 [...] this encounter Medical Devices Implanted Type Area Urology Physician Device Identifier Shelf Expiration Date Model / Serial / Lot Bard Peripheral Vascular Sequatchie Vena Cava Filter Implanted:Qty: 1 on 08/23/2017 [place] Nato Singh DO [place] [facility] [place] 06/27/2020 [id number] / [id number] / [id number] Lens Li61ao 13.00mm 22.00 - [id number] - [id number] Implanted:Qty: 1 on 03/21/2023 by Augustine Duong MD at OR [facility] Left: Eye [employer] LOMB 11/26/2027 [id number] 0 / [id number] / [id number] Lens Li61ao 13.00mm 22.00 - [id number] - [id number] Implanted:Qty: 1 on 04/04/2023 by Augustine Duong MD at OR [facility] Right: Eye BAUSCH [employer] LOMB 12/26/2027 [id number] 0 / [id number] / [id number] documented as of this encounter Procedures Procedure Name Priority Date/Time Associated Diagnosis Comments CARDIOLOGY SCANNED RESULT 10/02/2023 documented in this encounter Results * CARDIOLOGY SCANNED RESULT (10/02/2023) 10/02/2023 Coel Holliday MD OTHER documented in this encounter [...] the patient have Health Care Power of Veneer Stacker? No Code Status History Code Status Date Activated Date Inactivated Comments Full Code 08/27/2017 9:48 PM 09/04/2017 4:13 PM This order reflects the patients wishes and were consensually agreed upon. Question Answer Comments Discussion of Advance Directives occurred with: Patient Does the patient have a Living Will? No Does the patient have Health Care Power of Veneer Stacker? No Full Code 08/22/2017 8:14 PM 08/25/2017 7:18 PM Thi s order reflects the patients wishes and were consensually agreed upon. Question Answer Comments Discussion of Advance Directives occurred with: Patient/Family Does the patient have a Living Will? No Does the patient have Health Care Power of Veneer Stacker? No Care Teams Primary Therapist Relationship Specialty Start Date End Date Avelina Douglas CRNP [address] [place] [address] PCP - General Nurse Practitioner 03/16/23 documented as of this encounter
--- OUTSIDE RECORDS SUMMARY | 2023-11-18 11:40 | External Medical Summary | Summary of Care ---
Author Name Unknown Organization [facility] Address [address] [facility] [place] [address] Phone [phone] Care Team Providers Care Cullet Washer Name Role Phone Avelina Douglas EMILY Primary Care Provider Reason for Visit * Reason Onset Date Comments Urinary Tract Infection Symptoms 09/08/2023 Encounter Details Date Type Department Care Team (Late st Contact Info) Description 09/08/2023 Telephone Urogynecology [facility] [address] [place] [address] Andrae Joaquin MD [address] [place] [id number] Urinary Tract Infection Symptoms Allergies Active Allergy [...] Active metFORMIN ER (GLUCOPHAGE XR) 500 MG [id number]:Di abetes mellitus type 2, insulin dependent (HCC) [...] EST pt wants urine culture faxed to [phone] Done with receipt of confirmation Marry Weaver RN * Telephone Encounter - Marry Weaver RN - 09/08/2023 11:59 AM EST Requesting urine culture for dysuria " from itching" Lives at the [facility]---they have mobile phlebotomy that comes out and coming 09/14/2023-denies fever and low back pain- Aware does not mean UTI---pt still wants urine culture--she is aware if the [facility] needs the order--we can fax it to them---our number provided. Marry Weaver RN documented in this encounter Plan of Treatment Upcoming Encounters Date Type Department Care Team (Late st Contact Info) Description 09/18/2023 1:15 PM EST Office Visit [facility] [address] [facility] [place] [address] Andrae Joaquin MD [address] [place] [address] [facility] [address] [place] [address] 01/31/2024 8:30 AM EDT Office Visit Cardiology, [facility] [place] [address] Darius Stuart PA-C 132 [facility] [place] [address] 07/01/2024 8:30 AM EST Cardiac Studies Cardiology, [facility] 132 [facility] [place] [address] [facility] [place] [address] Pending Results Name Type Priority Associated Diagnoses Date /Time CULTURE, URINE, QUANTITATIVE Lab Routine Dysuria 09/14/2023 6:00 AM EST Health Maintenance Due Date Last Done Comments Depression Screening 1949 Albumin/Creatinine Ratio 1955 Diabetic Eye Exam 1955 DTaP,Tdap,and Td Vaccines (1 - Tdap) 1956 VITAMIN D LEVEL ONCE IN A LIFETIME-USE SMARTSET# [id number] 1977 DXA Scan 1987 Hepatitis B (1 of 3 - Risk 3-dose series) 1997 Diabetic Foot Exam 10/03/2018 10/03/2017 Influenza Vaccine (FLU shot) (#1) 2023 06/03/2022, 07/03/2017, 07/03/2017 B-12 08/26/2023 08/26/2022 HbA1c 02/02/2024 2023, 09/0 02/2023, 11/10/2022, Additional history exists Pneumococcal Vaccine: [...] this encounter Medical Devices Implanted Type Area Historical Manuscripts Curator Device Identifier Shelf Expiration Date Model / Serial / Lot Bard Peripheral Vascular Bollinger Vena Cava Filter Implanted:Qty: 1 on 08/23/2017 [place] Nato Singh [place] [facility] [place] 06/27/2020 [id number] / [id number] / [id number] Lens Li61ao 13.00mm 22.00 - [id number] - [id number] Implanted:Qty: 1 on 03/21/2023 by Augustine Duong MD at OR [facility] Left: Eye [employer]CH [employer] LOMB 11/26/2027 [id number] 0 / [id number] 2 / [id number] Lens Li61ao 13.00mm 22.00 - [id number] - [id number] Implanted:Qty: 1 on 04/04/2023 by Augustine Duong MD at OR [facility] Right: Eye BAUSCH & LOMB 12/26/2027 [id number] 0 / [id number] / [id number] documented as of this encounter Visit Diagnoses [...] the patient have Health Care Power of Math Specialist? No Code Status History Code Status Date Activated Date Inactivated Comments Full Code 08/27/2017 9:48 PM 09/04/2017 4:13 PM This order reflects the patients wishes and were consensually agreed upon. Question Answer Comments Discussion of Advance Directives occurred with: Patient Does the patient have a Living Will? No Does the patient have Health Care Power of Math Specialist? No Full Code 08/22/2017 8:14 PM 08/25/2017 7:18 PM Thi s order reflects the patients wishes and were consensually agreed upon. Question Answer Comments Discussion of Advance Directives occurred with: Patient/Family Does the patient have a Living Will? No Does the patient have Health Care Power of Math Specialist? No Care Teams Cullet Washer Relationship Specialty Start Date End Date Avelina Douglas CRNP [address] [place] [address] PCP - General Nurse Practitioner 03/16/23 documented as of this encounter
--- OUTSIDE RECORDS SUMMARY | 2023-11-18 11:40 | External Medical Summary | Summary of Care ---
Author Name Unknown Organization [facility] Address [address] [facility] [place] [address] Phone [phone] Care Team Providers Care Ditching Machine Engineer Name Role Phone Avelina Douglas EMILY Primary Care Provider Reason for Visit * Reason Onset Date Comments Urinary Tract Infection Symptoms 09/08/2023 Encounter Details Date Type Department Care Team (Late st Contact Info) Description 09/08/2023 Telephone Urogynecology [facility] [address] [place] [address] Andrae Joaquin MD [address] [place] [phone] Urinary Tract Infection Symptoms Allergies Active Allergy Reactions Criticality Noted Date Comments Levofloxacin Other (Please comment) 05/26/2017 Cramping pains Nitrofurantoin Nausea/vomiting,Othe r (Please comment) 08/26/2022 Dizziness Propofol Nausea/vomiting 01/03/2018 documented as of this encounter (statuses as of 09/08/2023) Medications Medication Sig Dispensed Refills Start Date [...] Active metFORMIN ER (GLUCOPHAGE XR) 500 MG FR74Gazdnoutnpp:Di abetes mellitus type 2, insulin dependent (HCC) [...] as of this encounter (statuses as of 09/08/2023) Active Problems Problem Noted Date Diagnosed Date [...] as of this encounter (statuses as of 09/08/2023) Immunizations Name Administration Dates Next Due COVID-19 [...] encounter Miscellaneous Notes * Telephone Encounter - Marry Weaver RN - 09/08/2023 2:03 PM EST pt wants urine culture faxed to [phone] Done with receipt of confirmation Marry Weaver RN * Telephone Encounter - Marry Weaver RN - 09/08/2023 11:59 AM EST Requesting urine culture for dysuria " from itching" Lives at the [facility]---they have mobile phlebotomy that comes out and coming 09/14/2023-denies fever and low back pain- Aware does not mean UTI---pt still wants urine culture--she is aware if the [place] needs the order--we can fax it to them---our number provided. Marry Weaver, RN documented in this encounter Plan of Treatment Upcoming Encounters Date Type Department Care Team (Late st Contact Info) Description 09/18/2023 1:15 PM EST Office Visit Urogynecology [facility] [address] [place] [address] Andrae Joaquin MD [address] [place] [address] WetzelNurse Ayaan zapata [facility] [address] [place] [address] 01/31/2024 8:30 AM EDT Office Visit Cardiology, [facility] [address] [place] [address] Darius Stuart PA-C [address] [place] [address] 07/01/2024 8:30 AM EST Cardiac Studies Cardiology, [facility] [address] [place] [address] [facility] [address] [place] [address] Scheduled Orders Name Type Priority Associated Diagnoses Orde r Schedule CULTURE, URINE, QUANTITATIVE Lab Routine Dysuria Expected: 09/14/2023, Expires: 09/27/2023 Health Maintenance Due Date Last Done Comments Depression Screening 1949 Albumin/Creatinine Ratio 1955 Diabetic Eye Exam 1955 DTaP,Tdap,and Td Vaccines (1 - Tdap) 1956 VITAMIN D LEVEL ONCE IN A LIFETIME-USE SMARTSET# [id number] 1977 DXA Scan 1987 Hepatitis B (1 [...] this encounter Medical Devices Implanted Type Area Weight Trainer Device Identifier Shelf Expiration Date Model / Serial / Lot Bard Peripheral Vascular Alyssa Vena Cava Filter Implanted:Qty: 1 on 08/23/2017 [place] Nato Singh DO [place] [facility] [place] 06/27/2020 [id number] / [id number] / [id number] Lens Li61ao 13.00mm 22.00 - [id number] - [id number] Implanted:Qty: 1 on 03/21/2023 by Augustine Duong MD at OR [facility] Left: Eye [employer]USCH [employer] LOMB 11/26/2027 [id number] 0 / [id number] Lens Li61ao 13.00mm 22.00 - [id number] - [id number] Implanted:Qty: 1 on 04/04/2023 by Augustine Duong MD at OR [facility] Right: Eye BAUSCH & LOMB 12/26/2027 [id number] 0 / [id number] / [id number] documented as of this encounter Visit Diagnoses [...] the patient have Health Care Power of Terminal Computer Operator? No Code Status History Code Status Date Activated Date Inactivated Comments Full Code 08/27/2017 9:48 PM 09/04/2017 4:13 PM This order reflects the patients wishes and were consensually agreed upon. Question Answer Comments Discussion of Advance Directives occurred with: Patient Does the patient have a Living Will? No Does the patient have Health Care Power of Terminal Computer Operator? No Full Code 08/22/2017 8:14 PM 08/25/2017 7:18 PM Thi s order reflects the patients wishes and were consensually agreed upon. Question Answer Comments Discussion of Advance Directives occurred with: Patient/Family Does the patient have a Living Will? No Does the patient have Health Care Power of Terminal Computer Operator? No Care Teams Ditching Machine Engineer Relationship Specialty Start Date End Date Avelina Douglas CRNP [address] [address] PCP - General Nurse Practitioner 03/16/23 documented as of this encounter
--- OUTSIDE RECORDS SUMMARY | 2023-11-18 11:40 | External Medical Summary | Summary of Care ---
Author Name Unknown Organization [facility] Address [address] [facility] [place] [address] Phone [phone] Care Team Providers Care Conduit Reamer Operator Name Role Phone Avelina Douglas EMILY Primary Care Provider Reason for Visit * Reason Onset Date Comments Urinary Tract Infection Symptoms 09/08/2023 Encounter Details Date Type Department Care Team (Late st Contact Info) Description 09/08/2023 Telephone Urogynecology [facility] [address] [place] [address] Andrae Joaquin MD [address] [place] [phone] Urinary Tract Infection Symptoms Allergies Active Allergy [...] Active metFORMIN ER (GLUCOPHAGE XR) 500 MG PM37Cbtiulqwmkr:Di abetes mellitus type 2, insulin dependent (HCC) [...] EST pt wants urine culture faxed to [phone] Done with receipt of confirmation Marry Weaver RN * Telephone Encounter - Marry Weaver RN - 09/08/2023 11:59 AM EST Requesting urine culture for dysuria " from itching" Lives at the [facility]---they have mobile phlebotomy that comes out and coming 09/14/2023-denies fever and low back pain- Aware does not mean UTI---pt still wants urine culture--she is aware if the [place] needs the order--we can fax it to them---our number provided. Marry Weaver RN documented in this encounter Plan of Treatment Upcoming Encounters Date Type Department Care Team (Late st Contact Info) Description 09/18/2023 1:15 PM EST Office [facility] [address] [place] [address] Andrae Joaquin MD [address] [place] [address] [facility] [address] [place] [address] 01/31/2024 8:30 AM EDT Office Visit Cardiology, [facility] [place] [address] Darius Stuart PA-C 132 [facility] [place] [address] 07/01/2024 8:30 AM EST Cardiac Studies Cardiology, [facility] 132 [facility] [place] [address] [facility] [address] [facility] [place] [address] Pending Results Name Type Priority Associated Diagnoses Date /Time CULTURE, URINE, QUANTITATIVE Lab Routine Dysuria 09/14/2023 6:00 AM EST Health Maintenance Due Date Last Done Comments Depression Screening 1947 Albumin/Creatinine Ratio 1955 Diabetic Eye Exam 1955 DTaP,Tdap,and Td Vaccines (1 - Tdap) 1956 VITAMIN D LEVEL ONCE IN A LIFETIME-USE SMARTSET# [id number] 1977 DXA Scan 1987 Hepatitis B (1 [...] this encounter Medical Devices Implanted Type Area Antique Jewelry Repairer Device Identifier Shelf Expiration Date Model / Serial / Lot Bard Peripheral Vascular Luce Vena Cava Filter Implanted:Qty: 1 on 08/23/2017 [place] Nato Singh DO [place] [facility] [place] 06/27/2020 [id number] / [id number] / [id number] Lens Li61ao 13.00mm 22.00 - [id number] - [id number] Implanted:Qty: 1 on 03/21/2023 by Augustine Duong MD at [place] [facility] Left: Eye BAUSCH [employer] LOMB 11/26/2027 [id number] 0 / [id number] 2 / [id number] Lens Li61ao 13.00mm 22.00 - [id number] - [id number] Implanted:Qty: 1 on 04/04/2023 by Augustine Duong MD at OR [facility] Right: Eye BAUSCH & LOMB 12/26/2027 [id number] 0 / [id number] / [id number] documented as of this encounter Visit Diagnoses [...] the patient have Health Care Power of Automotive Service Consultant? No Code Status History Code Status Date Activated Date Inactivated Comments Full Code 08/27/2017 9:48 PM 09/04/2017 4:13 PM This order reflects the patients wishes and were consensually agreed upon. Question Answer Comments Discussion of Advance Directives occurred with: Patient Does the patient have a Living Will? No Does the patient have Health Care Power of Automotive Service Consultant? No Full Code 08/22/2017 8:14 PM 08/25/2017 7:18 PM Thi s order reflects the patients wishes and were consensually agreed upon. Question Answer Comments Discussion of Advance Directives occurred with: Patient/Family Does the patient have a Living Will? No Does the patient have Health Care Power of Automotive Service Consultant? No Care Teams Conduit Reamer Operator Relationship Specialty Start Date End Date Avelina Douglas CRNP [address] [place] [address] PCP - General Nurse Practitioner 03/16/23 documented as of this encounter
--- OUTSIDE RECORDS SUMMARY | 2023-11-18 11:40 | External Medical Summary | Summary of Care ---
Author Name Unknown Organization [facility] Address [address] [facility] [place] [address] Phone [phone] Care Team Providers Care Agricultural Produce Commission Agent Name Role Phone Avelina Douglas EMILY Primary Care Provider Reason for Visit * Reason Onset Date Comments Urinary Tract Infection Symptoms 09/08/2023 Encounter Details Date Type Department Care Team (Late st Contact Info) Description 09/08/2023 Telephone Urogynecology [facility] [address] [place] [address] Andrae Joaquin MD [address] [place] [phone] Urinary Tract Infection Symptoms Allergies Active Allergy [...] Active metFORMIN ER (GLUCOPHAGE XR) 500 MG IU72Azzgnlxlmji:Di abetes mellitus type 2, insulin dependent (HCC) [...] dysuria " from itching" Lives at the [facility]---they have mobile phlebotomy that comes out and coming 09/14/2023-denies fever and low back pain- Aware does not mean UTI---pt still wants urine culture--she is aware if [facility] needs the order--we can fax it to them---our number provided. Marry Weaver, RN documented in this encounter Plan of Treatment Upcoming Encounters Date Type Department Care Team (Late st Contact Info) Description 09/18/2023 1:15 PM EST Office Visit Urogynecology [facility] [address] [place] [address] Andrae Joaquin MD [address] [place] [address] Nurse Ayaan Wetzel [facility] [address] [place] [address] 01/31/2024 8:30 AM EDT Office Visit Cardiology, [facility] [address] [place] [address] Darius Stuart PA-C [address] [place] [address] 07/01/2024 8:30 AM EST Cardiac Studies Cardiology, [facility] [address] [place] [address] [facility] [address] [place] [address] Scheduled Orders Name Type Priority Associated Diagnoses Orde r Schedule CULTURE, URINE, QUANTITATIVE Lab Routine Dysuria Expected: 09/14/2023, Expires: 09/27/2023 Health Maintenance Due Date Last Done Comments Depression Screening 1949 Albumin/Creatinine Ratio 1955 Diabetic Eye Exam 1955 DTaP,Tdap,and Td Vaccines (1 - Tdap) 1956 VITAMIN D LEVEL ONCE IN A LIFETIME-USE SMARTSET# [id number] 1977 DXA Scan 1987 Hepatitis B (1 [...] this encounter Medical Devices Implanted Type Area Mainspring Reverse Winder Device Identifier Shelf Expiration Date Model / Serial / Lot Bard Peripheral Vascular [place] Vena Cava Filter Implanted:Qty: 1 on 08/23/2017 by Nato Singh DO [place] [facility] [place]domen 06/27/2020 [id number] / [id number] / [id number] Lens Li61ao 13.00mm 22.00 - [id number] - [id number] Implanted:Qty: 1 on 03/21/2023 by Augustine Duong MD at OR [facility] Left: Eye BAUSCH [employer] LOMB 11/26/2027 [id number] 0 / [id number] / [id number] Lens Li61ao 13.00mm 22.00 - [id number] - [id number] Implanted:Qty: 1 on 04/04/2023 by Augustine Duong MD at [facility] Right: Eye BAUSCH & LOMB 12/26/2027 [id number] 0 / [id number] / [id number] documented as of this encounter Visit Diagnoses [...] patient have Health Care Power of Automotive Drivability Technician? No Code Status History Code Status Date Activated Date Inactivated Comments Full Code 08/27/2017 9:48 PM 09/04/2017 4:13 PM This order reflects the patients wishes and were consensually agreed upon. Question Answer Comments Discussion of Advance Directives occurred with: Patient Does the patient have a Living Will? No Does the patient have Health Care Power of Automotive Drivability Technician? No Full Code 08/22/2017 8:14 PM 08/25/2017 7:18 PM Thi s order reflects the patients wishes and were consensually agreed upon. Question Answer Comments Discussion of Advance Directives occurred with: Patient/Family Does the patient have a Living Will? No Does the patient have Health Care Power of Automotive Drivability Technician? No Care Teams Agricultural Produce Commission Agent Relationship Specialty Start Date End Date Avelina Douglas CRNP [address] [place] [address] PCP - General Nurse Practitioner 03/16/23 documented as of this encounter
--- OUTSIDE RECORDS SUMMARY | 2023-11-18 11:40 | External Medical Summary | Summary of Care ---
Author Name Unknown Organization [facility] Address [address] [place] [address] Phone [phone] Care Team Providers Care Adobe Architect Name Role Phone Avelina Douglas Primary Care Provider Encounter Details Date Type Department Care Team (Late st Contact Info) Description 2023 Orders Only Lab Mobile Phlebotomy [facility] [address] [place] [address] Avelina Douglas CRNP [address] [address] Paroxysmal atrial fibrillation (HCC)*; Diabetes mellitus type 2, insulin dependent (HCC); Anemia Allergies Active Allergy Reactions Criticality Noted Date Comments Levofloxacin Other (Please comment) 05/26/2017 Cramping pains Nitrofurantoin Nausea/vomiting,Othe r (Please comment) 08/26/2022 Dizziness Propofol Nausea/vomiting 01/03/2018 documented as of this encounter (statuses as of 2023) Medications Medication Sig Dispensed Refills Start Date [...] Active metFORMIN ER (GLUCOPHAGE XR) 500 MG [id number]:Di abetes mellitus type 2, insulin dependent (HCC) [...] as of this encounter (statuses as of 2023) Active Problems Problem Noted Date Diagnosed Date [...] as of this encounter (statuses as of 2023) Immunizations Name Administration Dates Next Due COVID-19 [...] Care Team (Late st Contact Info) Description 08/31/2023 1:00 PM EST Office Visit Cardiology, [facility] [address] [address] Darius Stuart PA-C [address] [address] 09/07/2023 9:30 AM EST Cardiac Studies Cardiology, [facility] [address] [facility] [place] [address] Beverly Buenrostror [facility] [address] [facility] [place] [address] 09/18/2023 1:15 PM EST Office Visit Urogynecology [facility] [address] [facility] [place] [address] Andrae Joaquin MD [address] [facility] [address] Nurse Rashard Urostephanian [facility] [address] [facility] [address] 07/01/2024 8:30 AM EST Cardiac Studies Cardiology, [facility] [address] [facility] [place] [address] Beverly Buenrostror [facility] 132 [facility] [place], [place] [address] Pending Results Name Type Priority Associated Diagnoses Date /Time CBC Lab Routine Paroxysmal atrial fibrillation (HCC) Diabetes mellitus type 2, insulin dependent (HCC) Anemia 2023 6:27 AM EST HEMOGLOBIN A1C Lab Routine Paroxysmal atrial fibrillation (HCC) Diabetes mellitus type 2, insulin dependent (HCC) Anemia 2023 6:27 AM EST TSH Lab Routine Paroxysmal atrial fibrillation (HCC) Diabetes mellitus type 2, insulin dependent (HCC) Anemia 2023 6:27 AM EST Scheduled Orders Name Type Priority Associated Diagnoses Orde r Schedule CBC Lab Routine Paroxysmal atrial fibrillation (HCC) Diabetes mellitus type 2, insulin dependent (HCC) Anemia Expected: 2023, Expires: 2024 HEMOGLOBIN A1C Lab Routine Paroxysmal atrial fibrillation (HCC) Diabetes mellitus type 2, insulin dependent (HCC) Anemia Expected: 2023, Expires: 2024 TSH Lab Routine Paroxysmal atrial fibrillation (HCC) Diabetes mellitus type 2, insulin dependent (HCC) Anemia Expected: 2023, Expires: 2024 Health Maintenance Due Date Last Done Comments Depression Screening 1949 Albumin/Creatinine Ratio 1955 Diabetic Eye Exam 1955 DTaP,Tdap,and Td Vaccines (1 - Tdap) 1956 VITAMIN D LEVEL ONCE IN A LIFETIME-USE SMARTSET# [id number] 1977 DXA Scan 1987 Hepatitis B (1 of 3 - Risk 3-dose series) 1997 Diabetic Foot Exam 10/03/2018 10/03/2017 Influenza Vaccine (FLU shot) (#1) 2023 06/03/2022, 07/03/2017, 07/03/2017 B-12 08/26/2023 08/26/2022 HbA1c 11/02/2023 05/04/2023, 10/26, 09/29/2022, Additional history exists Pneumococcal Vaccine: 65+ Years [...] this encounter Medical Devices Implanted Type Area Application Integration Architect Device Identifier Shelf Expiration Date Model / Serial / Lot Bard Peripheral Vascular [place] Vena Cava Filter Implanted:Qty: 1 on 08/23/2017 by Nato Singh DO at RADIOLOGY [facility] Abdomen 06/27/2020 [id number] / [id number] / [id number] Lens Li61ao 13.00mm 22.00 - [id number] - [id number] Implanted:Qty: 1 on 03/21/2023 by Augustine Duong MD at OR [facility] Left: Eye [employer] 11/26/2027 [id number] / [id number] Lens Li61ao 13.00mm 22.00 - [id number] - [id number] Implanted:Qty: 1 on 04/04/2023 by Augustine Duong MD at OR [facility] Right: Eye [employer]CH [employer]OMB 12/26/2027 [id number] / [id number] / [id number] documented as of this encounter Visit Diagnoses Diagnosis Paroxysmal atrial fibrillation (HCC)- Primary Atrial fibrillation Diabetes mellitus type 2, insulin dependent (HCC) Type II or unspecified type diabetes mellitus without mention of complication, not stated as uncontrolled Anemia Anemia, unspecified documented in this encounter Advance Directives Latest Code Status on File Code Status Date Activated Date Inactivated Comments No Code 03/21/2023 10:19 AM 03/21/2023 4:27 PM This order reflects the patients wishes and were consensually agreed upon. Question Answer Comments Discussion of Advance Directives occurred with: Patient Does the patient have a Living Will? No Does the patient have Health Care Power of Egg Pasteurizer? No Code Status History Code Status Date Activated Date Inactivated Comments Full Code 08/27/2017 9:48 PM 09/04/2017 4:13 PM This order reflects the patients wishes and were consensually agreed upon. Question Answer Comments Discussion of Advance Directives occurred with: Patient Does the patient have a Living Will? No Does the patient have Health Care Power of Egg Pasteurizer? No Full Code 08/22/2017 8:14 PM 08/25/2017 7:18 PM Thi s order reflects the patients wishes and were consensually agreed upon. Question Answer Comments Discussion of Advance Directives occurred with: Patient/Family Does the patient have a Living Will? No Does the patient have Health Care Power of Egg Pasteurizer? No Care Teams Adobe Architect Relationship Specialty Start Date End Date Avelina Douglas CRNP [address] [place] [address] PCP - General Nurse Practitioner 03/16/23 documented as of this encounter
--- OUTSIDE RECORDS SUMMARY | 2023-11-18 11:40 | External Medical Summary | Summary of Care ---
Author Name Unknown Organization [facility] Address [address] [facility] [place] [address] Phone [phone] Care Team Providers Care Mineral Engineer Name Role Phone Avelina Douglas EMILY Primary Care Provider Reason for Visit * Reason Onset Date Comments Urinary Tract Infection Symptoms 09/08/2023 Encounter Details Date Type Department Care Team (Late st Contact Info) Description 09/08/2023 Telephone Urogynecology [facility] [address] [place] [address] Andrae Joaquin MD [address] [place] [id number] Urinary Tract Infection Symptoms Allergies Active Allergy Reactions Criticality Noted Date Comments Levofloxacin Other (Please comment) 05/26/2017 Cramping pains Nitrofurantoin Nausea/vomiting,Othe r (Please comment) 08/26/2022 Dizziness Propofol Nausea/vomiting 01/03/2018 documented as of this encounter (statuses as of 09/18/2023) Medications Medication Sig Dispensed Refills Start Date [...] Active metFORMIN ER (GLUCOPHAGE XR) 500 MG [id number]:D iabetes mellitus type 2, insulin dependent (HCC) [...] as of this encounter (statuses as of 09/18/2023) Active Problems Problem Noted Date Diagnosed Date [...] as of this encounter (statuses as of 09/18/2023) Immunizations Name Administration Dates Next Due COVID-19 [...] Telephone Encounter - Marry Weaver RN - 09/18/2023 3:41 PM EST Spoke to pt---on abx from Dr Joaquin * Telephone Encounter - Carol Gaytan MED [...] 2:03 PM EST pt wants urine culture order faxed to [phone] Done with receipt of confirmation Marry Weaver RN * Telephone Encounter - Marry Weaver RN - 09/08/2023 11:59 AM EST Requesting urine culture for dysuria " from itching" Lives at the [facility]---they have mobile phlebotomy that comes out and coming 09/14/2023-denies fever and low back pain- Aware does not mean UTI---pt still wants urine culture--she is aware if the [facility] needs the order--we can fax it to them---our number provided. Marry Weaver RN documented in this encounter Plan of Treatment Upcoming Encounters Date Type Department Care Team (Late st Contact Info) Description 10/09/2023 1:15 PM EST Office Visit Urogynecology Lisandro Wetzel [address] [address] Andrae Joaquin MD [address] [place] [address] Nurse Ayaan Wetzel [address] [place] [address] 01/31/2024 8:30 AM EDT [facility] [address] [address] Darius Stuart PA-C [address] [place] [address] 07/01/2024 8:30 AM EST Cardiac Studies Cardiology, [facility] [address] [place] [address] [facility] [address] [place] [address] Health Maintenance Due Date Last Done Comments Depression Screening 1949 Albumin/Creatinine Ratio 1955 Diabetic Eye Exam 1955 DTaP,Tdap,and Td Vaccines (1 - Tdap) 1956 VITAMIN D LEVEL ONCE IN A LIFETIME-USE SMARTSET# 44448 1977 DXA Scan 1987 Hepatitis B (1 [...] this encounter Medical Devices Implanted Type Area Medicaid Analyst Device Identifier Shelf Expiration Date Model / Serial / Lot Bard Peripheral Vascular [place] Vena Cava Filter Implanted:Qty: 1 on 08/23/2017 by Nato Singh DO at [facility]OLOGY [facility] Abdomen 06/27/2020 [id number] / [id number] / [id number] Lens Li61ao 13.00mm 22.00 - [id number] - [id number] Implanted:Qty: 1 on 03/21/2023 by Augustine Duong MD at OR [facility] Left: Eye [employer]OM[employer] 11/26/2027 [id number] Lens Li61ao 13.00mm 22.00 - [id number] - [id number] Implanted:Qty: 1 on 04/04/2023 by Augustine Duong MD at OR [facility] Right: Eye [employer]CH [employer]OMB 12/26/2027 [id number] / [id number] / [id number] documented as of this encounter Results * (ABNORMAL) CULTURE, URINE, QUANTITATIVE (09/14/2023 6:00 AM EST) Pathologist [facility] Culture Growth 10,000 to 100,000 colonies/mL Escherichia coli(A) MICROBROTH DILUTIONS 09/17/2023 3:09 PM EST LAB[facility]ATORY [facility] Culture Growth 10,000 to 100,000 colonies/mL - second type Escherichia coli(A) MICROBROTH DILUTIONS 09/17/2023 3:09 PM EST LAB[facility]ATORY [facility] Urine Urine specimen obtained by clean catch procedure / Unknown Non-blood Collection / Unknown 09/14/2023 6:00 AM EST 09/14/2023 1:19 PM EST [facility] LAB[facility]ORY [facility] - 09/17/2023 3:09 PM EST <10,000 colonies/ml mixed normal faraz Organism Antibiotic Method Susceptibility Escherichia coli Ampicillin MICROBROTH DILUTIONS 4: Susceptible Escherichia coli Cefazolin MICROBROTH DILUTIONS <=4: Susceptible Escherichia coli Cefepime MICROBROTH DILUTIONS <=1: Susceptible Escherichia coli Ceftriaxone MICROBROTH DILUTIONS <=1: Susceptible Escherichia coli Ciprofloxacin MICROBROTH DILUTIONS <=0.25: Susceptible Comment:Due to tresa us side effects, the FDA has advised against using Ciprofloxacin to treat uncomplicated UTIs and respiratory tract infections unless there are no alternative treatment options. Escherichia coli Gentamicin MICROBROTH DILUTIONS <=1: Susceptible Escherichia coli Nitrofurantoin MICROBROTH DILUTIONS <=16: Susceptible Escherichia coli Piperacillin Tazobactam MICROBROTH DI LUTIONS <=4: Susceptible Escherichia coli Trimeth/Sulfamethoxazole MICROBROTH D ILUTIONS <=20: Susceptible Escherichia coli Ampicillin MICROBROTH DILUTIONS >=32: Resistant Escherichia coli Ampicillin/Sulbactam MICROBROTH DILUT IONS 4: Susceptible Escherichia coli Cefazolin MICROBROTH DILUTIONS <=4: Susceptible Escherichia coli Cefepime MICROBROTH DILUTIONS <=1: Susceptible Escherichia coli Ceftriaxone MICROBROTH DILUTIONS <=1: Susceptible Escherichia coli Ciprofloxacin MICROBROTH DILUTIONS 1: Resistant Comment:Due to tresa us side effects, the FDA has advised against using Ciprofloxacin to treat uncomplicated UTIs and respiratory tract infections unless there are no alternative treatment options. Escherichia coli Gentamicin MICROBROTH DILUTIONS <=1: Susceptible Escherichia coli Levofloxacin MICROBROTH DILUTIONS 1: Intermediate Comment:Due to tresa us side effects, the FDA has advised against using Levofloxacin to treat uncomplicated UTIs and respiratory tract infections unless there are no alternative treatment options. Escherichia coli Nitrofurantoin MICROBROTH DILUTIONS <=16: Susceptible Escherichia coli Piperacillin Tazobactam MICROBROTH DI LUTIONS <=4: Susceptible Escherichia coli Trimeth/Sulfamethoxazole MICROBROTH D ILUTIONS >=320: Resistant Andrae Joaquin MD LAB MICRO - GENERAL ORDERABLES Performing Organization Address City/State/[facility] Co de Phone Number LABORATORY [facility] [address] [place] [address] documented in this encounter Visit Diagnoses Diagnosis Dysuria- Primary [...] the patient have Health Care Power of Run Boat Operator? No Code Status History Code Status Date Activated Date Inactivated Comments Full Code 08/27/2017 9:48 PM 09/04/2017 4:13 PM This order reflects the patients wishes and were consensually agreed upon. Question Answer Comments Discussion of Advance Directives occurred with: Patient Does the patient have a Living Will? No Does the patient have Health Care Power of Run Boat Operator? No Full Code 08/22/2017 8:14 PM 08/25/2017 7:18 PM Thi s order reflects the patients wishes and were consensually agreed upon. Question Answer Comments Discussion of Advance Directives occurred with: Patient/Family Does the patient have a Living Will? No Does the patient have Health Care Power of Run Boat Operator? No Care Teams Mineral Engineer Relationship Specialty Start Date End Date Avelina Douglas CRNP [address] [place] [id number] PCP - General Nurse Practitioner 03/16/23 documented as of this encounter
--- OUTSIDE RECORDS SUMMARY | 2023-11-18 11:40 | External Medical Summary ---
Author Name Unknown Address Unknown Organization K01:LABORATORY [facility] - [address] [place] [address] Laboratory Report Ordering Provider Test Date Status FRANKIE BERKOWITZ 2023 06:27:00 Final Observation Date Value Abnormality Reference (Units ) Status TSH 2023 06:27:00 4.79 Above high normal 0. 27-4.20 (uIU/mL) Final Performing Location LABORATORY [facility] - [address] [place] [address]
--- OUTSIDE RECORDS SUMMARY | 2023-11-18 11:40 | External Medical Summary ---
Author Name Unknown Address Unknown Organization K01:LABORATORY [facility] - [facility] [address] [facility] [address] [place] [address] Laboratory Report Ordering Provider Test Date Status FRANKIE BERKOWITZ 09/07/2023 07:50:00 Final Observation Date Value Abnormality Reference (Units ) Status WBC, Total 09/07/2023 07:50:00 8.22 4.00-10.80 (K/uL) Final RBC 09/07/2023 07:50:00 3.59 3.85-5.15 (M/uL) Final Hemoglobin 09/07/2023 07:50:00 9.3 Below low normal 12.0-15.3 (g/dL) Final HCT 09/07/2023 07:50:00 32.7 Below low normal 36.0-45.2 (%) Final MCV 09/07/2023 07:50:00 91.1 81.5-97.5 (fL) Final MCH 09/07/2023 07:50:00 25.9 27.0-34.0 (pg) Final MCHC 09/07/2023 07:50:00 28.4 32.0-36.0 (g/dL) Final RDW 09/07/2023 07:50:00 17.1 11.5-15.5 (%) Final Platelets 09/07/2023 07:50:00 371 140-400 (K/uL) Final MPV 09/07/2023 07:50:00 9.7 6.6-11.1 (fL) Final Nucleated erythrocytes/100 leukocytes [Ratio] in Blood by Automated count 09/07/2023 07:50:00 0 <=0 (/100 WBCs) Final Performing Location LABORATORY [facility] - [address] [place] [address]
[2023-11-18 12:43] LABS: ANTI-Xa, UFH(UnfractionatedHep > 1.50 IU/ml (0.3-0.7)
[2023-11-18 20:35] LABS: ANTI-Xa, UFH(UnfractionatedHep 1.27 IU/ml (0.3-0.7)
[2023-11-19 05:14] LABS: Albumin Level 3.1 gm/dl (3.4-5.0); BUN Creatinine Ratio 15.3 (10-20); Calcium 8.2 mg/dl (8.6-10.3); Creatinine Clr Calc Pharmacy 44.5 ml/min; Est GFR (African American) 71.9 ml/min; Magnesium 1.5 mg/dl (1.7-2.4); Phosphorus 2.6 mg/dl (2.5-4.9); Potassium 4.2 mmol/L (3.5-5.1)
[2023-11-19 05:23] LABS: Hematocrit (blood only) 30.1 % (37.0-47.0); Hemoglobin 8.7 g/dl (12.0-16.0); Mean Corpuscular Hemoglobin 26.8 pg (25.0-34.0); Mean Corpuscular Hgb Conc 28.9 g/dL (32.0-36.0); Mean Corpuscular Volume 92.6 fL (80.0-100.0); Mean Platelet Volume 9.2 fL (9.4-12.4); Platelet Count 253 K/uL (130-400); RDW Coefficient of Variation 20.1 % (11.5-14.5); RDW Standard Deviation 67.8 fL (36.4-46.3); Red Blood Count 3.25 M/uL (4.20-5.40); White Blood Count 6.95 K/ul (4.8-10.8)
[2023-11-19 05:24] LABS: Anisocytosis Present; Basophils # (auto) 0.01 K/uL (0.00-0.20); Basophils % (auto) 0.1 %; Eosinophils # (auto) 0.21 K/uL (0.00-0.50); Hypochromasia Present; Immature Granulocytes # (auto) 0.02 K/uL (0.01-0.20); Immature Granulocytes % (auto) 0.3 %; Lymphocytes % (auto) 21.6 %; Monocytes # (auto) 0.67 K/uL (0.11-0.59); Monocytes % (auto) 9.6 %; Neutrophils # (auto) 4.54 K/uL (1.40-6.50); Neutrophils % (auto) 65.4 %
[2023-11-19 05:26] LABS: ANTI-Xa, UFH(UnfractionatedHep 0.92 IU/ml (0.3-0.7)
[2023-11-19] MEDS: D5W AND 1/2NSS 1,000 ML IV SCH (10:01)
--- NOTE | 2023-11-19 14:57 | Hospitalist Progress Note ---
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 Patient had a BM. NG tube clamped will trial fluids/ Colonic mass/mural neoplasm- Consult oncology Dr. Marko Calloway Paroxysmal atrial fibrillation/hypertension- Admit to telemetry to be able to give Lopressor IV Hold metoprolol succinate 100 mg p.o. twice daily, and instead placed on Lopressor 5 mg IV every 4 hours, holding for systolic blood pressure less than 120 Hold losartan Hold Eliquis, and instead placed on heparin IV low-dose without bolus per protocol Patient went to A fib RVR. Patient required 15 mg of metorpolol IV in additon. and was then transitioned to oral metoprolol. Insomnia- Holding oral alprazolam, and instead placed on lorazepam 0.5 mg IV at bedtime as needed Hyperthyroidism- For now have to hold methimazole, but should be restarted as soon as possible Admission and Anticipated Discharge Date Admission Date: November 18, 2023 Subjective Patient reports no new symptoms. Patient had a bowel movement. Review of Systems Review of Systems: All systems reviewed & are unremarkable except as noted in HPI & below Physical Exam Physical Exam: The patient is awake, alert and oriented 3, well developed and well nourished, normocephalic and atraumatic, lying in bed and in no acute distress. HEENT--PERRL, EOMI, mucous membranes and oropharynx mildly dry. Neck--supple. No JVD. No bruits. Thyroid normal, trachea midline, no adenopathy. Heart--normal S1 and S2. No murmurs, rubs or gallops. Lungs--clear bilaterally, no respiratory distress, no accessory muscle use. Abdomen--normal bowel sounds and soft. Generalized tenderness lower quadrants Extremities-- No edema. Dermatologic--normal skin turgor, normal color, no abnormal lymph nodes, no rash. Neurologic--cranial nerves II through XII grossly intact. Rheumatologic--normal range of motion. Psychiatric--normal affect. Results & Data Results & Data Vital Signs (Past 12 Hours) Vital Signs Temp Pulse Pulse Resp BP BP Pulse Ox 11/19/23 14:55 73 11/19/23 12:18 70 191/82 H 11/19/23 11:57 80 190/72 H 11/19/23 11:28 36.7 C 70 16 185/78 H 93 11/19/23 08:27 73 184/72 H 11/19/23 08:00 70 178/79 H 11/19/23 07:36 36.6 C 72 16 178/79 H 93 11/19/23 07:15 72 11/19/23 04:12 72 154/77 H 11/19/23 03:57 74 168/71 H O2 Del Method 11/19/23 14:55 11/19/23 12:18 11/19/23 11:57 11/19/23 11:28 Room Air 11/19/23 08:27 11/19/23 08:00 11/19/23 07:36 Room Air 11/19/23 07:15 11/19/23 04:12 11/19/23 03:57 PG Care Time/CCT Total # of Minutes Spent Total Time Spent with Patient: Total time spent is greater than 50% in coordination of care (as documented) at patient's floor/unit and/or counseling patient: Coding Level of Care Code 53079 SUB INP/OBS CARE 2/35MIN Diagnoses SBO (small bowel obstruction) K56.609 Colonic mass K63.89 Pacemaker Z95.0 Paroxysmal atrial fibrillation I48.0 Hypertension I10 Diabetes mellitus, type 2 E11.9 Hyperthyroidism E05.90
[2023-11-19 15:04] LABS: ANTI-Xa, UFH(UnfractionatedHep 0.53 IU/ml (0.3-0.7)
[2023-11-19] MEDS: hydrALAZINE HCL 20 MG/ML VIAL IV ONE (15:57)
--- NOTE | 2023-11-19 16:55 | XRay Report ---
XR KUB/Abdomen 1 view CLINICAL HISTORY: sbo TECHNIQUE: 1 view of the abdomen was obtained. Comparison: Comparison is made to abdomen radiograph 11/18/2023 FINDINGS: IVC filter is seen. Enteric tube tip and side-port lie below the diaphragm. Degenerative changes are seen in the visualized skeleton. The bowel gas pattern is nonobstructive. A moderate amount of stool is noted within the large bowel. IMPRESSION: No radiographic evidence of small bowel obstruction. However CT may be more sensitive modality as the re was a paucity of small bowel gas in the prior CT. ACT 112: Negative or not required by law. Electronically signed by: Aguila Capone M.D. 11/19/2023 4:52 PM
[2023-11-19] MEDS: METOPROLOL TARTRATE 1 MG/ML VIAL IV STA ×5 (17:20→18:14)
[2023-11-19] MEDS: METOPROLOL TARTRATE 100 MG TAB PO SCH (20:00)
[2023-11-19 23:28] LABS: ANTI-Xa, UFH(UnfractionatedHep 0.43 IU/ml (0.3-0.7)
[2023-11-20 06:14] LABS: Basophils # (auto) 0.02 K/uL (0.00-0.20); Basophils % (auto) 0.3 %; Eosinophils # (auto) 0.31 K/uL (0.00-0.50); Eosinophils % (auto) 4.6 %; Hematocrit (blood only) 29.1 % (37.0-47.0); Hemoglobin 8.8 g/dl (12.0-16.0); Immature Granulocytes # (auto) 0.02 K/uL (0.01-0.20); Immature Granulocytes % (auto) 0.3 %; Lymphocytes # (auto) 1.17 K/uL (1.20-3.40); Lymphocytes % (auto) 17.4 %; Mean Corpuscular Hemoglobin 27.2 pg (25.0-34.0); Mean Corpuscular Hgb Conc 30.2 g/dL (32.0-36.0); Mean Corpuscular Volume 89.8 fL (80.0-100.0); Mean Platelet Volume 9.3 fL (9.4-12.4); Monocytes # (auto) 0.66 K/uL (0.11-0.59); Monocytes % (auto) 9.8 %; Neutrophils # (auto) 4.55 K/uL (1.40-6.50); Neutrophils % (auto) 67.6 %; Platelet Count 229 K/uL (130-400); RDW Coefficient of Variation 19.7 % (11.5-14.5); RDW Standard Deviation 64.8 fL (36.4-46.3); Red Blood Count 3.24 M/uL (4.20-5.40); White Blood Count 6.73 K/ul (4.8-10.8)
[2023-11-20 06:34] LABS: Albumin Level 3.1 gm/dl (3.4-5.0); BUN Creatinine Ratio 10.1 (10-20); Calcium 8.1 mg/dl (8.6-10.3); Creatinine Clr Calc Pharmacy 47.9 ml/min; Est GFR (African American) 78.6 ml/min; Est GFR (Non-African American) 67.8 ml/min; Magnesium 1.4 mg/dl (1.7-2.4); Phosphorus 2.2 mg/dl (2.5-4.9); Potassium 3.6 mmol/L (3.5-5.1)
[2023-11-20] MEDS ORDERED: Nursing to Pharmacy Communication SCH (09:00)
[2023-11-20] MEDS ORDERED: POTASSIUM PHOS 3 MMOL/1 ML INFUSION IV STA (09:59)
[2023-11-20] MEDS: MAGNESIUM SULFATE / D5W 1 GM/100 ML BAG IV SCH (10:29)
[2023-11-20] MEDS: POTASSIUM PHOSPHATE 9 MMOL in SODIUM CHLORIDE 0.9% 250 ML IV ONE (10:42)
--- NOTE | 2023-11-20 11:09 | Gastrointestinal Consultation ---
Date of Consultation November 20, 2023 Assessment & Plan (1) SBO (small bowel obstruction): (2) Abnormal CT scan, small bowel: Patient is a 88 y.o. female admitted with abdominal pain and n/v with abnormal imaging consistent with SBO with transition point, now resolved but CT findings of suspected small bowel mural lesion. 1. Recommend repeat CT a/p with both IV and oral contrast as the obstruction is now resolved for optimal visualization. 2. If mass lesion remains persistent, can consider colonoscopy although may be too proximal to be evaluated via this procedure and surgery or double balloon enteroscopy may be more appropriate. 3. Continue clear liquid diet for now. 4. Further recommendations pending results of repeat CT imaging. Thank you for allowing up to participate in the care of this patient. If you have any questions or concerns, please do not hesitate to contact us. Addendum @[phone]: repeat CT with findings of suspected ileocecal mass. Plan for colonoscopy tomorrow 11/[address] Abrams. Supervising Physician Co-Signing Physician Notes Agree with EMILY Zavala as above Abd: Soft, NT, ND, +BS Continue current therapy and supportive care Clear liquid diet, bowel prep tonight, NPO following prep completion CT reviewed Colonoscopy in AM History of Present Illness Reason for Consultation: SBO Requesting Physician: Dr. Macdonald Attending Physician: Dae Macdonald History of Present Illness Patient is a 88 y.o. female evaluated today in coverage for [facility] for abnormal CT imaging obtained upon admission to the hospital demonstrating a small bowel obstruction "with zone of transition at the level of the lower pelvic bowel loop revealing mural neoplasm with exact etiology indeterminate and commonly late associated with lymphoma given morphology". Given these findings GI has been consulted. She has had a KUB yesterday which demonstrated resolution of the obstruction and she has been advanced to a liquid diet. She denies any abdominal pain at present. No nausea or vomiting. Per nursing, patient did have a small bowel movement this morning. No melena or hematochezia noted. Has a history of prior abdominal hysterectomy. She reports she has undergone colonoscopy in the past and did have an EGD by Dr. Arnett in May of 2023. Allergies Allergy/AdvReac Type Severity Reaction Status Date / Time levofloxacin AdvReac Intermediate Muscle Verified 11/18/23 01:36 pain (difficulty with walking) nitrofurantoin AdvReac Intermediate headache/GI Verified 11/18/23 01:36 [From Macrobid] upset/nausea Home Medications Medication Instructions Recorded Confirmed Type alprazolam 0.25 mg tablet (Xanax) 0.25 mg PO HS Anxiety 09/02/18 11/18/23 History insulin glargine 100 unit/mL 16 unit subcut HS 09/02/18 11/18/23 History subcutaneous solution (Lantus U-100 Insulin) metformin 500 mg tablet 500 mg PO BID 09/02/18 11/18/23 History atorvastatin 20 mg tablet (Lipitor) 20 mg PO QAM 09/23/19 11/18/23 History acetaminophen 500 mg tablet 1,000 mg PO Q6H PRN Pain 06/03/21 11/18/23 History vibegron 75 mg tablet (Gemtesa) 75 mg PO DAILY #90 tabs 03/01/23 11/18/23 Rx Estrogen Cream 1 applic vaginal . EVERY OTHER 06/09/23 11/18/23 History NIGHT apixaban 5 mg tablet (Eliquis) 5 mg PO BID #60 tabs 06/20/23 11/18/23 Rx losartan 25 mg tablet 25 mg PO QAM #30 tabs 06/20/23 11/18/23 Rx metoprolol succinate 100 mg 100 mg PO BID #60 tabs 06/20/23 11/18/23 Rx tablet,extended release 24 hr solifenacin 5 mg tablet (Vesicare) 5 mg PO DAILY 07/25/23 11/18/23 History methimazole 5 mg tablet 5 mg PO BID 11/18/23 11/18/23 History Patient History Medical History Aspiration pneumonitis Acute respiratory failure with hypoxia Hypertensive urgency Pulmonary edema Acute bronchospasm Anemia Blood transfusions several years ago (r/t DVTs/acute blood loss) Presence of IVC filter Chronic back pain Osteoarthritis Kidney stones Pancreatitis Remote hx Diabetes mellitus, type 2 IDDM Hyperthyroidism on Methimazole/managed by PCP Depression Anxiety BCC (basal cell carcinoma) Hyperlipidemia Pacemaker Implanted 2011, 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 Holliday Hypertension Essential tremor Facial, hands CHF (congestive heart failure) Surgical History History of esophagogastroduodenoscopy (EGD) History of cystoscopy Cystoscopy, b/l ureteronephroscopy, laser lithotripsy (11/07/19): LMA#4 iGel, atraumatic insertion at [facility] History of cardiac cath 2011 > no stents PONV (postoperative nausea and vomiting) History of total knee replacement Right History of colonoscopy History of appendectomy Status post Mohs surgery S/P epidural steroid injection History of cardiac radiofrequency ablation S/P cardiac pacemaker procedure Hx of tonsillectomy History of hysterectomy MARC and BSO Family History Brother Family history of diabetes mellitus Brother Family history of diabetes mellitus Sister Family history of diabetes mellitus Grandmother (Paternal) Family history of diabetes mellitus Grandmother (Maternal) Breast cancer Denies family history of Ovarian cancer Colorectal cancer Social History Smoking Status: Never smoker Second Hand Exposure: No; Do You Dip or Chew Tobacco: No; Hx Alcohol Use: No Hx Substance Use: No Preferred Language: Togolese Communication Ability: Effective Visual Impairment: No Limitations Surveillance Analyst Required: No Beliefs That Will Affect Care: None marital status: / Current Living Situation: Alone Current Living Situation Comment: at the [facility] current occupational status: retired Other Information That Helps Us Care for You: No Feels Safe at Home: Yes Safety Concerns: Feels Safe At This Time Assistive Devices: Walker Review of Systems Constitutional: no fever and no chills Gastrointestinal: as per Subjective / HPI Physical Exam Constitutional: WD/WN, vitals as above Respiratory: normal respiratory effort, lungs clear to auscultation Cardiovascular: RRR, no murmur, no edema Gastrointestinal (Abdomen): normal bowel sounds, soft, nontender, no hepatosplenomegaly Psychiatric: A+Ox3, euthymic affect Results & Data Vital Signs (Past 12 Hours) Vital Signs Temp Pulse Pulse Resp BP Pulse Ox O2 Del Method 11/20/23 10:39 36.8 C 69 17 177/72 H 95 Room Air 11/20/23 07:00 105 H 11/20/23 06:59 36.4 C L 85 16 177/83 H 96 Room Air 11/20/23 02:54 36.7 C 70 20 183/64 H 95 Room Air Diagnostic Findings Laboratory Results WBC 6.73 K/ul (4.8-10.8) 11/20/23 05:54 RBC 3.24 M/uL (4.20-5.40) L 11/20/23 05:54 Hgb 8.8 g/dl (12.0-16.0) L 11/20/23 05:54 Hct 29.1 % (37.0-47.0) L 11/20/23 05:54 MCV 89.8 fL (80.0-100.0) 11/20/23 05:54 MCH 27.2 pg (25.0-34.0) 11/20/23 05:54 MCHC 30.2 g/dL (32.0-36.0) L 11/20/23 05:54 RDW Std Deviation 64.8 fL (36.4-46.3) H 11/20/23 05:54 RDW Coeff of Cruz 19.7 % (11.5-14.5) H 11/20/23 05:54 Plt Count 229 K/uL (130-400) 11/20/23 05:54 MPV 9.3 fL (9.4-12.4) L 11/20/23 05:54 Immature Gran % (Auto) 0.3 % 11/20/23 05:54 Neut % (Auto) 67.6 % 11/20/23 05:54 Lymph % (Auto) 17.4 % 11/20/23 05:54 [place] % (Auto) 9.8 % 11/20/23 05:54 Eos % (Auto) 4.6 % 11/20/23 05:54 Baso % (Auto) 0.3 % 11/20/23 05:54 Neut # (Auto) 4.55 K/uL (1.40-6.50) 11/20/23 05:54 Lymph # (Auto) 1.17 K/uL (1.20-3.40) L 11/20/23 05:54 [place] # (Auto) 0.66 K/uL (0.11-0.59) H 11/20/23 05:54 Eos # (Auto) 0.31 K/uL (0.00-0.50) 11/20/23 05:54 Baso # (Auto) 0.02 K/uL (0.00-0.20) 11/20/23 05:54 Immature Gran # (Auto) 0.02 K/uL (0.01-0.20) 11/20/23 05:54 Polychromasia 1+ 11/18/23 05:35 Hypochromasia Present 11/19/23 04:18 Anisocytosis Present 11/19/23 04:18 Ovalocytes 1+ 11/18/23 05:35 PT 13.3 Seconds (9.0-12.0) H 11/18/23 05:35 INR 1.2 (0.9-1.1) H 11/18/23 05:35 APTT 41 Seconds (21-31) H 11/18/23 05:35 PTT Ratio 1.5 11/18/23 05:35 Heparin Anti-Xa, Unfract 0.40 IU/ml (0.3-0.7) 11/20/23 05:54 Sodium 135 mmol/L (136-145) L 11/20/23 05:54 Potassium 3.6 mmol/L (3.5-5.1) 11/20/23 05:54 Chloride 102 mmol/L (98-107) 11/20/23 05:54 Carbon Dioxide 26 mmol/L (21-32) 11/20/23 05:54 Anion Gap 7 (3-11) 11/20/23 05:54 BUN 8 mg/dl (6-23) 11/20/23 05:54 Creatinine 0.79 mg/dl (0.6-1.2) 11/20/23 05:54 Est Cr Clr Drug Dosing 47.9 ml/min 11/20/23 05:54 Est GFR ( Amer) 78.6 ml/min 11/20/23 05:54 Est GFR (Non-Af Amer) 67.8 ml/min 11/20/23 05:54 BUN/Creatinine Ratio 10.1 (10-20) 11/20/23 05:54 Glucose 193 mg/dl (70-99(Fasting)) H 11/20/23 05:54 POC Glucose 211 mg/dl (70-99) H 11/20/23 11:08 Estimat Average Glucose 117 mg/dl 11/18/23 05:35 Hemoglobin A1c 5.7 % (4.5-5.6) H 11/18/23 05:35 Calcium 8.1 mg/dl (8.6-10.3) L 11/20/23 05:54 Phosphorus 2.2 mg/dl (2.5-4.9) L 11/20/23 05:54 Magnesium 1.4 mg/dl (1.7-2.4) L 11/20/23 05:54 Total Bilirubin 0.4 mg/dl (0.2-1.0) 11/17/23 21:49 Direct Bilirubin 0.0 mg/dl (0-0.2) 11/17/23 21:49 AST 8 U/L (13-39) L 11/17/23 21:49 ALT 4 U/L (7-52) L 11/17/23 21:49 Alkaline Phosphatase 68 U/L (34-104) 11/17/23 21:49 Troponin I High Sens 7.2 pg/ml (0-14) 11/17/23 21:49 Total Protein 7.0 gm/dl (6.0-8.3) 11/17/23 21:49 Albumin 3.1 gm/dl (3.4-5.0) L 11/20/23 05:54 Globulin 3.1 gm/dl (2.5-4.0) 11/17/23 21:49 Albumin/Globulin Ratio 1.3 (0.9-2) 11/17/23 21:49 Lipase < 3 U/L (11-82) L 11/17/23 21:49 Urine Color Yellow 11/17/23 23:00 Urine Appearance Clear (Clear) 11/17/23 23:00 Urine pH 6.5 (4.5-7.5) 11/17/23 23:00 Ur Specific Slater 1.012 (1.000-1.030) 11/17/23 23:00 Urine Protein Negative (Negative) 11/17/23 23:00 Urine Glucose (UA) Negative (Negative) 11/17/23 23:00 Urine Ketones Trace (Negative) H 11/17/23 23:00 Urine Blood 1+ (Negative) H 11/17/23 23:00 Urine Nitrite Negative (Negative) 11/17/23 23:00 Urine Bilirubin Negative (Negative) 11/17/23 23:00 Urine Urobilinogen Negative (Negative) 11/17/23 23:00 Ur Leukocyte Esterase Trace (Negative) H 11/17/23 23:00 Urine WBC (Auto) 10-30 /hpf (0-5) H 11/17/23 23:00 Urine RBC (Auto) 10-30 /hpf (0-4) H 11/17/23 23:00 U Hyaline Cast (Auto) 0 /lpf (0-5) 11/17/23 23:00 U Epithel Cells (Auto) 10-20 /lpf (0-5) H 11/17/23 23:00 Urine Bacteria (Auto) Negative (Negative) 11/17/23 23:00 Adenovirus (PCR) Not Detected (NotDetected) 11/17/23 23:00 B. pertussis DNA (PCR) Not Detected (NotDetected) 11/17/23 23:00 B.parapertussis DNA PCR Not Detected (NotDetected) 11/17/23 23:00 C. pneumoniae DNA (PCR) Not Detected (NotDetected) 11/17/23 23:00 Coronavirus OC43 (PCR) Not Detected (NotDetected) 11/17/23 23:00 Coronavirus HKU1 (PCR) Not Detected (NotDetected) 11/17/23 23:00 Coronavirus 229E (PCR) Not Detected (NotDetected) 11/17/23 23:00 SARS-CoV-2 (PCR) Not Detected (NotDetected) 11/17/23 23:00 Coronavirus NL63 (PCR) Not Detected (NotDetected) 11/17/23 23:00 Human Metapneumovir PCR Not Detected (NotDetected) 11/17/23 23:00 Influenza Type A (PCR) Not Detected (NotDetected) 11/17/23 23:00 Influenza Type B (PCR) Not Detected (NotDetected) 11/17/23 23:00 M. pneumoniae (PCR) Not Detected (NotDetected) 11/17/23 23:00 Parainfluenza 1 (PCR) Not Detected (NotDetected) 11/17/23 23:00 Parainfluenza 2 (PCR) Not Detected (NotDetected) 11/17/23 23:00 Parainfluenza 3 (PCR) Not Detected (NotDetected) 11/17/23 23:00 Parainfluenza 4 (PCR) Not Detected (NotDetected) 11/17/23 23:00 RSV (PCR) Not Detected (NotDetected) 11/17/23 23:00 Entero/Rhino (PCR) Not Detected (NotDetected) 11/17/23 23:00 Impressions Abdomen/Pelvis CT 11/17/23 22:10 Exam(s): CT ABDOMEN + PELVIS With Contrast IV Amt: 93 ML EXAM: CT Abdomen and Pelvis With Intravenous Contrast CLINICAL HISTORY: Reason for exam: abd n/v. TECHNIQUE: Axial computed tomography images of the abdomen and pelvis with intravenous contrast. CTDI is 20.23 mGy and DLP is 926.24 mGy-cm. Automated exposure control was utilized for the study. A dose lowering technique was utilized adhering to the principles of ALARA. CONTRAST: Patient received 93 ML of IV contrast COMPARISON: 06/22/2023. FINDINGS: Lung bases: Minimal posterior subpleural atelectasis. Heart: Borderline cardiomegaly with pacemaker leads in place. ABDOMEN: Liver: 2 mm low-attenuation structure within the left liver lobe, likely cyst. Otherwise normal liver. Gallbladder and bile ducts: Tiny stones versus sludge within the gallbladder. Remainder of the gallbladder unremarkable. No ductal dilation. Pancreas: Unremarkable. No mass. No ductal dilation. Spleen: Unremarkable. No splenomegaly. Adrenals: Unremarkable. No mass. Kidneys and ureters: Multiple low-attenuation structures within the bilateral kidneys, largest on the right measuring 1.5 cm and largest on the left measuring approximately 1.6 cm compatible simple renal cyst. There is evidence of a stone within the left mid lower renal pole measuring 12.8 mm. There is a stone within the lower pole of the right kidney measuring 10.8 mm. Stomach and bowel: There are loops of small bowel distended up to 3.5 cm at the level of the pelvis concerning for small bowel obstruction. Distal to this level there is a mural expansile lesion of the lower pelvic small bowel loop with irregular enhancement of the wall and concerning for neoplasm. 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 Diverticulosis throughout the colon were so through the sigmoid with no signs of diverticulitis. PELVIS: Appendix: Nonvisualized appendix with no inflammation by the cecum to suggest appendicitis. Bladder: Unremarkable. No mass. Reproductive: Nonvisualized uterus consistent with prior hysterectomy. ABDOMEN and PELVIS: Intraperitoneal space: Trace amount of ascites surrounding the liver. No free air. Bones/joints: Diffuse osteopenia with degenerative disease of the spine, bilateral SI joints and hips. There is scoliosis of the lumbar spine with convexity to the left. No acute fracture. No dislocation. Soft tissues: Unremarkable. Vasculature: IVC filter in place. Calcified atherosclerotic disease of aorta with no aneurysm or dissection. Lymph nodes: Unremarkable. No enlarged lymph nodes. IMPRESSION: 1. 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 2. Bilateral simple renal cysts with no follow-up imaging recommended. Nonobstructing bilateral intrarenal stones as described. 3. Tiny gallstones otherwise unremarkable gallbladder and biliary system. Electronically signed by: Jennifer Patino MD 11/18/23 00:00 AM Chest X-Ray 11/18/23 01:14 XR chest 1V portable CLINICAL HISTORY: confirm NGT COMPARISON STUDY: Chest CT and chest radiograph June 12, 2023. FINDINGS: Left subclavian pacer is in place. Tip of nasogastric tube is below the lower aspect of the image but at least within the body of the stomach. Several right lung nodules are unchanged. Cardiomediastinal silhouette is stable. There is no evidence for pulmonary edema. No consolidation to suggest pneumonia. IMPRESSION: 1. No acute cardiopulmonary findings. 2. Tip of nasogastric tube below the lower aspect of image but at least within the distal body of the stomach. ACT 112: Negative or not required by law. Electronically signed by: Fernando Gabriel M.D. 11/18/2023 7:27 AM KUB X-Ray 11/19/23 15:33 XR KUB/Abdomen 1 view CLINICAL HISTORY: sbo TECHNIQUE: 1 view of the abdomen was obtained. Comparison: Comparison is made to abdomen radiograph 11/18/2023 FINDINGS: IVC filter is seen. Enteric tube tip and side-port lie below the diaphragm. Degenerative changes are seen in the visualized skeleton. The bowel gas pattern is nonobstructive. A moderate amount of stool is noted within the large bowel. IMPRESSION: No radiographic evidence of small bowel obstruction. However CT may be more sensitive modality as there was a paucity of small bowel gas in the prior CT. ACT 112: Negative or not required by law. Electronically signed by: Aguila Capone M.D. 11/19/2023 4:52 PM PG Care Time/CCT Total # of Minutes Spent Total Time Spent with Patient: Total time spent is greater than 50% in coordination of care (as documented) at patient's floor/unit and/or counseling patient: Coding Level of Care Code 85107 INT INP/OBS CARE MIN Diagnoses SBO (small bowel obstruction) K56.[address] scan, small bowel R93.3
[2023-11-20] MEDS: INSULIN ASPART PER UNIT CHARGE SC SCH (11:42)
[2023-11-20 11:59] LABS: Ferritin 116.4 ng/ml (8-388)
--- NOTE | 2023-11-20 13:42 | Electrocardiogram Report ---
Test Reason : Blood Pressure : / mmHG Vent. Rate : 135 BPM Atrial Rate : 127 BPM P-R Int : 000 ms QRS Dur : 078 ms QT Int : 340 ms P-R-T Axes : 000 017 222 degrees QTc Int : 510 ms Sinus tachycardia with frequent , and consecutive Premature atrial complexes Premature ventricular complexes Abnormal ECG When compared with ECG of 17-NOV-2023 21:44, Vent. rate has increased BY [address] now depressed in Inferior leads ST now depressed in Anterolateral leads T wave inversion now evident in Inferior leads Confirmed by Liban Denton ([id number]) on 11/20/2023 1:42:33 PM Referred By: REFERRED SELF Confirmed By:Liban Denton
[2023-11-20] MEDS: OPTIRAY 320 100ml IV ONE (14:23)
--- NOTE | 2023-11-20 14:58 | CT Scan Report ---
CT OF THE ABDOMEN AND PELVIS WITH CONTRAST CLINICAL HISTORY: ? for small bowel lesion. recent SBO, now resolved COMPARISON STUDY: CT of the abdomen and pelvis November 17, 2023. KUB November 19, 2023. TECHNIQUE: Following IV administration of 94 mL of Optiray, axial images of the abdomen and pelvis we re obtained from the lung bases to the proximal femurs. Images were reviewed in the axial, sagittal, and coronal planes. IV contrast was administered without complication. Automated exposure control wa s utilized for the study. A dose lowering technique was utilized adhering to the principles of ALARA . Oral contrast was administered. CT DOSE: 758.3 mGy.cm FINDINGS: Multiple small subpleural nodular densities within the lower lungs favor a chronic infectio us or inflammatory process. There is a trace pericardial effusion. Pacer lead is partially imaged. Th ere is no pneumatosis, free air or portal venous gas. There are no hepatic lesions. Spleen, adrenal g lands and pancreas are unremarkable. Bilateral renal lesions favor cysts. A hyperdense lesion arising from the lower pole of the left kidney favors a hyperdense cyst within correlating with prior noncon trast CT. Bilateral renal calculi measure up to 1.4 cm. Bilateral renal cortical thinning is again no camryn. No hydronephrosis. There are no ureteral calculi. Gallstones within the gallbladder are present. There is adenomyomatosis of the gallbladder fundus. IVC filter is in place. Oral contrast reaches th e colon and proximal rectum. Small bowel dilatation shown on prior CT has resolved. There is persiste nt circumferential wall thickening of the distal ileum and cecum. This is at site of small bowel obst ruction shown on prior CT. A few prominent mesenteric lymph nodes are noted. Index node on image 204 of 309 measures 1.2 x 0.9 cm. A small amount of ascites within the abdomen and pelvis is present. The re is no abscess. Sigmoid diverticulosis is present. No evidence for acute diverticulitis. IMPRESSION: 1. Resolution of the small bowel obstruction shown on CT of November 17, 2023. 2. Persistent circumferential wall thickening of the terminal ileum and cecum at site of obstruction shown on prior CT. This is highly suggestive of a neoplastic process such as lymphoma. Adenocarcinoma could appear similar. A few prominent indeterminate adjacent mesenteric lymph nodes. 3. Small amount of fluid within the abdomen and pelvis. 4. Bilateral nephrolithiasis. No ureteral calculi. No hydronephrosis. ACT 112: Negative or not required by law. Electronically signed by: Fernando Gabriel M.D. 11/20/2023 2:56 PM
[2023-11-20] MEDS: LOSARTAN POTASSIUM 25 MG TAB PO SCH (17:11)
[2023-11-20] MEDS: LAVAGE SOLUTION 4000ML PO SCH (18:15)
--- NOTE | 2023-11-20 21:33 | Hospitalist Progress Note ---
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 Patient had a BM. NG tube clamped will trial fluids Ng tube has been removed. Colonic mass/mural neoplasm- Consult oncology Dr. Marko Calloway will obtain a GI consult to obtain a sample Paroxysmal atrial fibrillation/hypertension- Admit to telemetry to be able to give Lopressor IV Hold metoprolol succinate 100 mg p.o. twice daily, and instead placed on Lopressor 5 mg IV every 4 hours, holding for systolic blood pressure less than 120 Hold losartan Hold Eliquis, and instead placed on heparin IV low-dose without bolus per vj col Patient went to A fib RVR. Patient required 15 mg of metorpolol IV in additon. and was then transitioned to oral metoprolol. Insomnia- Holding oral alprazolam, and instead placed on lorazepam 0.5 mg IV at bedtime as needed Hyperthyroidism- For now have to hold methimazole, will resume in AM. Admission and Anticipated Discharge Date Admission Date: November 18, 2023 Subjective Patient had a bowel movement in past 24 hours. Patient reports no new symptoms. Review of Systems Review of Systems: All systems reviewed & are unremarkable except as noted in HPI & below Physical Exam Physical Exam: The patient is awake, alert and oriented 3, well developed and well nourished, normocephalic and atraumatic, lying in bed and in no acute distress. HEENT--PERRL, EOMI, mucous membranes and oropharynx mildly dry. Neck--supple. No JVD. No bruits. Thyroid normal, trachea midline, no adenopathy. Heart--normal S1 and S2. No murmurs, rubs or gallops. Lungs--clear bilaterally, no respiratory distress, no accessory muscle use. Abdomen--normal bowel sounds and soft. Generalized tenderness lower quadrants Extremities-- No edema. Dermatologic--normal skin turgor, normal color, no abnormal lymph nodes, no rash. Neurologic--cranial nerves II through XII grossly intact. Rheumatologic--normal range of motion. Psychiatric--normal affect. Results & Data Results & Data Vital Signs (Past 12 Hours) Vital Signs Temp Pulse Pulse Resp BP BP Pulse Ox 11/20/23 19:00 36.3 C L 74 20 194/92 H 98 11/20/23 15:52 36.8 C 70 16 194/84 H 96 11/20/23 15:05 70 11/20/23 10:39 36.8 C 69 17 177/72 H 95 O2 Del Method 11/20/23 19:00 Room Air 11/20/23 15:52 Room Air 11/20/23 15:05 11/20/23 10:39 Room Air PG Care Time/CCT Total # of Minutes Spent Total Time Spent with Patient: Total time spent is greater than 50% in coordination of care (as documented) at patient's floor/unit and/or counseling patient: Coding Level of Care Code 68199 SUB INP/OBS CARE 3/50MIN Diagnoses SBO (small bowel obstruction) K56.609 Colonic mass K63.89 Pacemaker Z95.0 Paroxysmal atrial fibrillation I48.0 Hypertension I10 Diabetes mellitus, type 2 E11.9 Hyperthyroidism E05.90
[2023-11-20] MEDS: METOPROLOL TARTRATE 1 MG/ML VIAL IV STA (23:42)
[2023-11-21 07:07] LABS: Hematocrit (blood only) 29.9 % (37.0-47.0); Hemoglobin 8.9 g/dl (12.0-16.0); Mean Corpuscular Hemoglobin 26.6 pg (25.0-34.0); Mean Corpuscular Hgb Conc 29.8 g/dL (32.0-36.0); Mean Corpuscular Volume 89.5 fL (80.0-100.0); Mean Platelet Volume 9.2 fL (9.4-12.4); Platelet Count 232 K/uL (130-400); RDW Coefficient of Variation 19.8 % (11.5-14.5); RDW Standard Deviation 63.8 fL (36.4-46.3); Red Blood Count 3.34 M/uL (4.20-5.40); White Blood Count 5.35 K/ul (4.8-10.8)
[2023-11-21 07:25] LABS: Calcium 8.4 mg/dl (8.6-10.3); Est GFR (African American) 70.9 ml/min; Est GFR (Non-African American) 61.2 ml/min; Potassium 3.7 mmol/L (3.5-5.1)
[2023-11-21 08:37] LABS: ANTI-Xa, UFH(UnfractionatedHep 0.28 IU/ml (0.3-0.7)
--- NOTE | 2023-11-21 09:36 | History & Physical Bridge Note ---
Date of Service November 21, 2023 History & Physical Bridge Note I have examined the patient, reviewed the History & Physical and in the interval since the performance of the History & Physical I have noted the following changes of clinical significance: Patient's heparin ggt has been held. Patient has finished bowel preparation and is passing clear stools. No abdominal pain, n/v or other GI complaints. PE: A&Ox3. Lungs CTA bilaterally. RRR. Abdomen soft, nontender. Normal bowel sounds. A/P: Patient is a 88 y.o. female admitted with abdominal pain and SBO with CT imaging suggestive of an ileocecal mass. -NPO for now. -Proceed with diagnostic colonoscopy by Dr. Abrams today. -Further reccs pending results of testing. Supervising Physician Co-Signing Physician Notes Agree with EMILY Zavala as above Abd: Soft, NT, ND, +BS Continue current therapy and supportive care Proceed with colonoscopy now
--- NOTE | 2023-11-21 11:57 | GI REPORT ---
Patient Name: Anastasiia Aponte Procedure Date: 11/21/2023 11:22 AM Date of : 1935 Admit Type: Inpatient Age: 88 Gender: Female Attending MD: Otto Abrams DO, Procedure: Colonoscopy Providers: Otto Abrams DO Referring MD: Dae Macdonald MD Indications: Abnormal CT of the GI tract Medicines: Monitored Anesthesia Care Complications: No immediate complications. Estimated Blood Loss: Estimated blood loss: none. Procedure: Pre-Anesthesia Assessment: - Prior to the procedure, a History and Physical was performed, and patient medications and allergies were reviewed. The patient's tolerance of previous anesthesia was also reviewed. The risks and benefits of the procedure and the sedation options and risks were discussed with the patient. All questions were answered, and informed consent was obtained. Prior Anticoagulants: The patient last took Eliquis (apixaban) 3 days and heparin 1 day prior to the procedure. ASA Grade Assessment: III - A patient with severe systemic disease. After reviewing the risks and benefits, the patient was deemed in satisfactory condition to undergo the procedure. After I obtained informed consent, the scope was passed under direct vision. Throughout the procedure, the patient's blood pressure, pulse, and oxygen saturations were monitored continuously. The scope was introduced through the anus and advanced to the cecum, identified by its appearance. The colonoscopy was performed without difficulty. The patient tolerated the procedure well. The quality of the bowel preparation was good. The rectum was photographed. Findings: The perianal and digital rectal examinations were normal. An infiltrative partially obstructing large mass was found in the cecum. The mass was circumferential. Oozing was present. Biopsies were taken with a cold forceps for histology. Multiple small-mouthed diverticula were found in the sigmoid colon. Non-bleeding internal hemorrhoids were found during retroflexion. The hemorrhoids were small. 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 Biopsied. - Diverticulosis in the sigmoid colon. - Non-bleeding internal hemorrhoids. Recommendation: - Resume clear liquid diet. - Continue present medications. - Repeat colonoscopy for surveillance based on pathology results. - Refer to a surgeon today. Discussed with Dr. Mata. - Ordered CEA and PT/INR today Otto Abrams DO 11/21/2023 11:57:08 AM This report has been signed electronically. Note Initiated On: 11/21/2023 11:22 AM Number of Addenda: 0 I attest to the content of the Intraoperative Record and orders documented therein, exceptions below {[id number]}
[2023-11-21] MEDS: LIDOCAINE 2% 2 ML VIAL/AMP(20MG/ML) INFIL ONE ×3 (12:39→12:57)
[2023-11-21] MEDS: PROPOFOL IV EMULSION 10 MG/ML 20 ML VIAL IV ONE ×3 (12:39→12:58)
[2023-11-21] MEDS: ONDANSETRON INJ 2 MG/ML 2 ML VIAL ONE ×2 (12:39→12:58)
[2023-11-21] MEDS: methIMAzole 5 MG TABLET PO ONE (12:44)
--- NOTE | 2023-11-21 13:07 | Anesthesiology Progress Note ---
Date of Service November 21, 2023 Anesthesia Post Procedure Vital Signs Vital Signs: Temp Pulse Pulse Resp BP BP BP 11/21/23 13:05 36.2 C L 70 16 196/74 H 11/21/23 12:28 36.4 C L 76 16 211/91 H 11/21/23 12:07 70 16 207/104 H 11/21/23 11:52 70 16 181/87 H 11/21/23 11:37 69 14 119/67 11/21/23 10:27 198/83 H 11/21/23 10:18 36.7 C 71 18 196/100 H 11/21/23 08:03 36.7 C 72 16 176/70 H 11/21/23 07:53 36.9 C 70 18 168/79 H 11/21/23 07:15 71 11/21/23 02:54 36.8 C 69 18 173/69 H 11/20/23 23:57 79 174/107 H 11/20/23 23:42 67 207/93 H 11/20/23 22:58 36.6 C 67 21 207/93 H 11/20/23 19:00 36.3 C L 74 20 194/92 H 11/20/23 15:52 36.8 C 70 16 194/84 H 11/20/23 15:05 70 Pulse Ox O2 Del Method 11/21/23 13:05 95 Room Air 11/21/23 12:28 96 Room Air 11/21/23 12:07 98 Room Air 11/21/23 11:52 93 Room Air 11/21/23 11:37 100 Room Air 11/21/23 10:27 11/21/23 10:18 96 Room Air 11/21/23 08:03 96 Room Air 11/21/23 07:53 98 Room Air 11/21/23 07:15 11/21/23 02:54 96 Room Air 11/20/23 23:57 11/20/23 23:42 11/20/23 22:58 99 Room Air 11/20/23 19:00 98 Room Air 11/20/23 15:52 96 Room Air 11/20/23 15:05 Pain Intensity Abdomen: Pain Intensity: 5 Transfer of Care Handoff Completed per policy Notes Mental Status: alert / awake / arousable and participated in evaluation Nausea / Vomiting: adequately controlled Pain: adequately controlled Airway Patency, RR, SpO2: stable & adequate BP & HR: stable & adequate Hydration State: stable & adequate Anesthetic Complications: no major complications apparent and Pt Satisfied with anesthetic care
[2023-11-21 13:30] LABS: INR 1.1 (0.9-1.1)
--- NOTE | 2023-11-21 15:13 | Surgery Consultation ---
<Statement entered by Ulices Johns MD - 11/21/23 16:17> Patient seen and examined. cecal mass agree with above plan. Date of Consultation November 21, 2023 Assessment & Plan (1) Abnormal CT scan, small bowel: (2) Abdominal pain: (3) Nausea & vomiting: (4) SBO (small bowel obstruction): Plan 88 year-old female who initially presented to ED with acute onset of abdominal pain with nausea and vomiting found to have SBO with transition in the small bowel which has now resolved. Repeat ct scan abd/pelvis with IV and oral contrast showing ileocecal mass. S/p colonoscopy today showing near obstructing cecal mass, biopsy pending. Given bowel obstruction on presentation with large cecal mass, discussed need for resection to further determine further need for treatment and to relieve obstruction. Discussed option of hand assisted laparoscopic right colon resection. Will plan for resection during this admission as she has already undergone bowel prep. Dr. Johns briefly discussed surgery, restrictions, and expected recovery. Will tentatively plan for surgery on . Will obtain consent tomorrow. Okay for clear liquids. Hold anticoagulation. Dr. Johns has seen patient and agrees with above. History of Present Illness Reason for Consultation: Cecal mass Requesting Physician: Dr. Abrams Attending Physician: Dae Macdonald History of Present Illness Anastasiia is a 88 year-old female with history of hyperthyroidism, PAF, HTN, UTI, Anemia , incontinence, diabetes type 2, dyslipidemia, DVT and pulmonary embolism s/p vena cava filter, osteoporosis, anxiety, depression, essential tremor, CHF who presented to hospital Monday evening with sudden onset of abdominal pain with nausea and vomiting. States she was feeling fine prior to this event. She had a ct scan of abdomen and pelvis with IV contrast showing SBO with transition in the small bowel concerning for possible lymphoma. SBO then resolved and she had repeat ct scan with IV and oral contrast showing ileocecal mass. She underwent colonoscopy today by Dr. Abrams which showed near obstructing cecal mass which was biopsied. She states her abdominal pain has resolved, no nausea or vomiting. Tolerated clear liquids. States she has not noticed any prior abdominal pain or changes in stool caliber (pencil thin stools). No unintentional weight loss. History of total abdominal hysterectomy and appendectomy during same procedure. On eliquis for afib. Allergies Allergy/AdvReac Type Severity Reaction Status Date / Time levofloxacin AdvReac Intermediate Muscle Verified 11/18/23 01:36 pain (difficulty with walking) nitrofurantoin AdvReac Intermediate headache/GI Verified 11/18/23 01:36 [From Macrobid] upset/nausea Home Medications Medication Instructions Recorded Confirmed Type alprazolam 0.25 mg tablet (Xanax) 0.25 mg PO HS Anxiety 09/02/18 11/18/23 History insulin glargine 100 unit/mL 16 unit subcut HS 09/02/18 11/18/23 History subcutaneous solution (Lantus U-100 Insulin) metformin 500 mg tablet 500 mg PO BID 09/02/18 11/18/23 History atorvastatin 20 mg tablet (Lipitor) 20 mg PO QAM 09/23/19 11/18/23 History acetaminophen 500 mg tablet 1,000 mg PO Q6H PRN Pain 06/03/21 11/18/23 History vibegron 75 mg tablet (Gemtesa) 75 mg PO DAILY #90 tabs 03/01/23 11/18/23 Rx Estrogen Cream 1 applic vaginal . EVERY OTHER 06/09/23 11/18/23 History NIGHT apixaban 5 mg tablet (Eliquis) 5 mg PO BID #60 tabs 06/20/23 11/18/23 Rx losartan 25 mg tablet 25 mg PO QAM #30 tabs 06/20/23 11/18/23 Rx metoprolol succinate 100 mg 100 mg PO BID #60 tabs 06/20/23 11/18/23 Rx tablet,extended release 24 hr solifenacin 5 mg tablet (Vesicare) 5 mg PO DAILY 07/25/23 11/18/23 History methimazole 5 mg tablet 5 mg PO BID 11/18/23 11/18/23 History Patient History Medical History Aspiration pneumonitis Acute respiratory failure with hypoxia Hypertensive urgency Pulmonary edema Acute bronchospasm Anemia Blood transfusions several years ago (r/t DVTs/acute blood loss) Presence of IVC filter Chronic back pain Osteoarthritis Kidney stones Pancreatitis Remote hx Diabetes mellitus, type 2 IDDM Hyperthyroidism on Methimazole/managed by PCP Depression Anxiety BCC (basal cell carcinoma) Hyperlipidemia Pacemaker Implanted 2011, 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 Holliday Hypertension Essential tremor Facial, hands CHF (congestive heart failure) Surgical History History of esophagogastroduodenoscopy (EGD) History of cystoscopy Cystoscopy, b/l ureteronephroscopy, laser lithotripsy (11/07/19): LMA#4 iGel, atraumatic insertion at [facility] History of cardiac cath 2011 > no stents PONV (postoperative nausea and vomiting) History of total knee replacement Right History of colonoscopy History of appendectomy Status post Mohs surgery S/P epidural steroid injection History of cardiac radiofrequency ablation S/P cardiac pacemaker procedure Hx of tonsillectomy History of hysterectomy MARC and BSO Family History Brother Family history of diabetes mellitus Brother Family history of diabetes mellitus Sister Family history of diabetes mellitus Grandmother (Paternal) Family history of diabetes mellitus Grandmother (Maternal) Breast cancer Denies family history of Ovarian cancer Colorectal cancer Social History Smoking Status: Never smoker Second Hand Exposure: No; Do You Dip or Chew Tobacco: No; Hx Alcohol Use: No Hx Substance Use: No Preferred Language: [place] Communication Ability: Effective Visual Impairment: No Limitations [place] [employer] Required: No Beliefs That Will Affect Care: None marital status: / Current Living Situation: Alone Current Living Situation Comment: at the [facility] current occupational status: retired Other Information That Helps Us Care for You: No Feels Safe at Home: Yes Safety Concerns: Feels Safe At This Time Assistive Devices: Walker Physical Exam Constitutional: WD/WN, vitals as above cooperative and comfortable; no acute distress and not ill appearing Respiratory: normal respiratory effort; no respiratory distress, no labored breathing and no retractions Cardiovascular: Rate/Rhythm: regular rate and regular rhythm Gastrointestinal (Abdomen): Inspection/Auscultation: abdomen normal to inspection and + abdominal surgical scar (low midline laparotomy scar); abdomen not distended and + abnormal bowel sounds Percussion/Palpation: abdomen soft; abdomen nontender, no guarding and abdomen not rigid Skin: no rashes, warm and dry Psychiatric: A+Ox3, euthymic affect Results & Data Vital Signs (Past 12 Hours) Vital Signs Temp Pulse Pulse Resp BP BP Pulse Ox 11/21/23 13:05 36.2 C L 70 16 196/74 H 95 11/21/23 12:28 36.4 C L 76 16 211/91 H 96 11/21/23 12:07 70 16 207/104 H 98 11/21/23 11:52 70 16 181/87 H 93 11/21/23 11:37 69 14 119/67 100 11/21/23 10:27 198/83 H 11/21/23 10:18 36.7 C 71 18 196/100 H 96 11/21/23 08:03 36.7 C 72 16 176/70 H 96 11/21/23 07:53 36.9 C 70 18 168/79 H 98 11/21/23 07:15 71 O2 Del Method 11/21/23 13:05 Room Air 11/21/23 12:28 Room Air 11/21/23 12:07 Room Air 11/21/23 11:52 Room Air 11/21/23 11:37 Room Air 11/21/23 10:27 11/21/23 10:18 Room Air 11/21/23 08:03 Room Air 11/21/23 07:53 Room Air 11/21/23 07:15 Laboratory Results 11/21/23 11/21/23 11/21/23 Range/Units 12:49 12:42 06:41 WBC 5.35 (4.8-10.8) K/ul RBC 3.34 L (4.20-5.40) M/uL Hgb 8.9 L (12.0-16.0) g/dl Hct 29.9 L (37.0-47.0) % MCV 89.5 (80.0-100.0) fL MCH 26.6 (25.0-34.0) pg MCHC 29.8 L (32.0-36.0) g/dL RDW Std Deviation 63.8 H (36.4-46.3) fL RDW Coeff of Cruz 19.8 H (11.5-14.5) % Plt Count 232 (130-400) K/uL MPV 9.2 L (9.4-12.4) fL PT 12.0 (9.0-12.0) Seconds INR 1.1 (0.9-1.1) Heparin Anti-Xa, Unfract 0.28 L (0.3-0.7) IU/ml Sodium 137 (136-145) mmol/L Potassium 3.7 (3.5-5.1) mmol/L Chloride 102 (98-107) mmol/L Carbon Dioxide 29 (21-32) mmol/L Anion Gap 6 (3-11) BUN 6 (6-23) mg/dl Creatinine 0.86 (0.6-1.2) mg/dl Est Cr Clr Drug Dosing 44.0 ml/min Est GFR ( Amer) 70.9 ml/min Est GFR (Non-Af Amer) 61.2 ml/min BUN/Creatinine Ratio 7.0 L (10-20) Glucose 119 H (70-99(Fasting)) mg/dl POC Glucose 125 H (70-99) mg/dl Calcium 8.4 L (8.6-10.3) mg/dl Magnesium 2.0 (1.7-2.4) mg/dl Carcinoembryonic Ag 0.6 (0-2.5) ng/ml 11/21/23 11/20/23 11/20/23 Range/Units 06:35 23:36 19:57 WBC (4.8-10.8) K/ul RBC (4.20-5.40) M/uL Hgb (12.0-16.0) g/dl Hct (37.0-47.0) % MCV (80.0-100.0) fL MCH (25.0-34.0) pg MCHC (32.0-36.0) g/dL RDW Std Deviation (36.4-46.3) fL RDW Coeff of Cruz (11.5-14.5) % Plt Count (130-400) K/uL MPV (9.4-12.4) fL PT (9.0-12.0) Seconds INR (0.9-1.1) Heparin Anti-Xa, Unfract (0.3-0.7) IU/ml Sodium (136-145) mmol/L Potassium (3.5-5.1) mmol/L Chloride (98-107) mmol/L Carbon Dioxide (21-32) mmol/L Anion Gap (3-11) BUN (6-23) mg/dl Creatinine (0.6-1.2) mg/dl Est Cr Clr Drug Dosing ml/min Est GFR ( Amer) ml/min Est GFR (Non-Af Amer) ml/min BUN/Creatinine Ratio (10-20) Glucose (70-99(Fasting)) mg/dl POC Glucose 139 H 154 H 135 H (70-99) mg/dl Calcium (8.6-10.3) mg/dl Magnesium (1.7-2.4) mg/dl Carcinoembryonic Ag (0-2.5) ng/ml 11/20/23 Range/Units 16:06 WBC (4.8-10.8) K/ul RBC (4.20-5.40) M/uL Hgb (12.0-16.0) g/dl Hct (37.0-47.0) % MCV (80.0-100.0) fL MCH (25.0-34.0) pg MCHC (32.0-36.0) g/dL RDW Std Deviation (36.4-46.3) fL RDW Coeff of Cruz (11.5-14.5) % Plt Count (130-400) K/uL MPV (9.4-12.4) fL PT (9.0-12.0) Seconds INR (0.9-1.1) Heparin Anti-Xa, Unfract (0.3-0.7) IU/ml Sodium (136-145) mmol/L Potassium (3.5-5.1) mmol/L Chloride (98-107) mmol/L Carbon Dioxide (21-32) mmol/L Anion Gap (3-11) BUN (6-23) mg/dl Creatinine (0.6-1.2) mg/dl Est Cr Clr Drug Dosing ml/min Est GFR ( Amer) ml/min Est GFR (Non-Af Amer) ml/min BUN/Creatinine Ratio (10-20) Glucose (70-99(Fasting)) mg/dl POC Glucose 129 H (70-99) mg/dl Calcium (8.6-10.3) mg/dl Magnesium (1.7-2.4) mg/dl Carcinoembryonic Ag (0-2.5) ng/ml Diagnostic Findings CT OF THE ABDOMEN AND PELVIS WITH CONTRAST CLINICAL HISTORY: ? for small bowel lesion. recent SBO, now resolved COMPARISON STUDY: CT of the abdomen and pelvis November 17, 2023. KUB November 19, 2023. TECHNIQUE: Following IV administration of 94 mL of Optiray, axial images of the abdomen and pelvis were obtained from the lung bases to the proximal femurs. Images were reviewed in the axial, sagittal, and coronal planes. IV contrast was administered without complication. Automated exposure control was utilized for the study. A dose lowering technique was utilized adhering to the principles of ALARA. Oral contrast was administered. CT DOSE: 758.3 mGy.cm FINDINGS: Multiple small subpleural nodular densities within the lower lungs favor a chronic infectious or inflammatory process. There is a trace pericardial effusion. Pacer lead is partially imaged. There is no pneumatosis, free air or portal venous gas. There are no hepatic lesions. Spleen, adrenal glands and pancreas are unremarkable. Bilateral renal lesions favor cysts. A hyperdense lesion arising from the lower pole of the left kidney favors a hyperdense cyst within correlating with prior noncontrast CT. Bilateral renal calculi measure up to 1.4 cm. Bilateral renal cortical thinning is again noted. No hydronephrosis. There are no ureteral calculi. Gallstones within the gallbladder are present. There is adenomyomatosis of the gallbladder fundus. IVC filter is in place. Oral contrast reaches the colon and proximal rectum. Small bowel dilatation shown on prior CT has resolved. There is persistent circumferential wall thickening of the distal ileum and cecum. This is at site of small bowel obstruction shown on prior CT. A few prominent mesenteric lymph nodes are noted. Index node on image 204 of 309 measures 1.2 x 0.9 cm. A small amount of ascites within the abdomen and pelvis is present. There is no abscess. Sigmoid diverticulosis is present. No evidence for acute diverticulitis. IMPRESSION: 1. Resolution of the small bowel obstruction shown on CT of November 17, 2023. 2. Persistent circumferential wall thickening of the terminal ileum and cecum at site of obstruction shown on prior CT. This is highly suggestive of a neoplastic process such as lymphoma. Adenocarcinoma could appear similar. A few prominent indeterminate adjacent mesenteric lymph nodes. 3. Small amount of fluid within the abdomen and pelvis. 4. Bilateral nephrolithiasis. No ureteral calculi. No hydronephrosis. (2) Abdominal pain Abdominal location: periumbilical Qualified Code(s): R10.33 - Periumbilical pain (3) Nausea & vomiting Vomiting type: unspecified Qualified Code(s): R11.2 - Nausea with vomiting, unspecified
[2023-11-21 19:33] LABS: ANTI-Xa, UFH(UnfractionatedHep 0.18 IU/ml (0.3-0.7)
[2023-11-21] MEDS: methIMAzole 5 MG TABLET PO SCH (20:03)
[2023-11-21] MEDS: HEPARIN SOD (PORCINE) 1000 UNIT/ML IV ONE (20:52)
--- NOTE | 2023-11-21 21:50 | Hospitalist Progress Note ---
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 Patient had a BM. NG tube clamped will trial fluids Ng tube has been removed. Colonic mass/mural neoplasm- Consult oncology Dr. Marko Calloway: no inhouse consults, but informed. GI consulted: obtained sample of mass. NOw plan for surgery on . Gen surgery consulted. Paroxysmal atrial fibrillation/hypertension- Admit to telemetry to be able to give Lopressor IV Hold metoprolol succinate 100 mg p.o. twice daily, and instead placed on Lopressor 5 mg IV every 4 hours, holding for systolic blood pressure less than 120 Hold losartan Hold Eliquis, and instead placed on heparin IV low-dose without bolus per protocol Patient went to A fib RVR. Patient required 15 mg of metorpolol IV in additon. and was then transitioned to oral metoprolol. HR stable on 11/20 Insomnia- Holding oral alprazolam, and instead placed on lorazepam 0.5 mg IV at bedtime as needed Hyperthyroidism- For now have to hold methimazole, will resume in AM. Admission and Anticipated Discharge Date Admission Date: November 18, 2023 Subjective Patient reports no new symptoms. Review of Systems Review of Systems: All systems reviewed & are unremarkable except as noted in HPI & below Physical Exam Physical Exam: The patient is awake, alert and oriented 3, well developed and well nourished, normocephalic and atraumatic, lying in bed and in no acute distress. HEENT--PERRL, EOMI, mucous membranes and oropharynx mildly dry. Neck--supple. No JVD. No bruits. Thyroid normal, trachea midline, no adenopathy. Heart--normal S1 and S2. No murmurs, rubs or gallops. Lungs--clear bilaterally, no respiratory distress, no accessory muscle use. Abdomen--normal bowel sounds and soft. Generalized tenderness lower quadrants Extremities-- No edema. Dermatologic--normal skin turgor, normal color, no abnormal lymph nodes, no rash. Neurologic--cranial nerves II through XII grossly intact. Rheumatologic--normal range of motion. Psychiatric--normal affect. Results & Data Results & Data Vital Signs (Past 12 Hours) Vital Signs Temp Pulse Pulse Resp BP BP Pulse Ox 11/21/23 19:00 36.8 C 85 18 149/93 H 96 11/21/23 16:40 36.8 C 87 18 170/92 H 98 11/21/23 15:57 103 H 11/21/23 15:31 36.6 C 112 H 16 177/82 H 96 11/21/23 13:05 36.2 C L 70 16 196/74 H 95 11/21/23 12:28 36.4 C L 76 16 211/91 H 96 11/21/23 12:07 70 16 207/104 H 98 11/21/23 11:52 70 16 181/87 H 93 11/21/23 11:37 69 14 119/67 100 11/21/23 10:27 198/83 H 11/21/23 10:18 36.7 C 71 18 196/100 H 96 O2 Del Method 11/21/23 19:00 Room Air 11/21/23 16:40 Room Air 11/21/23 15:57 11/21/23 15:31 Room Air 11/21/23 13:05 Room Air 11/21/23 12:28 Room Air 11/21/23 12:07 Room Air 11/21/23 11:52 Room Air 11/21/23 11:37 Room Air 11/21/23 10:27 11/21/23 10:18 Room Air PG Care Time/CCT Total # of Minutes Spent Total Time Spent with Patient: Total time spent is greater than 50% in coordination of care (as documented) at patient's floor/unit and/or counseling patient: Coding Level of Care Code 60764 SUB INP/OBS CARE 2/35MIN Diagnoses SBO (small bowel obstruction) K56.609 Colonic mass K63.89 Pacemaker Z95.0 Paroxysmal atrial fibrillation I48.0 Hypertension I10 Diabetes mellitus, type 2 E11.9 Hyperthyroidism E05.90
[2023-11-22 06:51] LABS: Hematocrit (blood only) 30.4 % (37.0-47.0); Hemoglobin 8.8 g/dl (12.0-16.0); Mean Corpuscular Hemoglobin 26.5 pg (25.0-34.0); Mean Corpuscular Hgb Conc 28.9 g/dL (32.0-36.0); Mean Corpuscular Volume 91.6 fL (80.0-100.0); Mean Platelet Volume 9.8 fL (9.4-12.4); Platelet Count 246 K/uL (130-400); RDW Coefficient of Variation 19.9 % (11.5-14.5); RDW Standard Deviation 66.9 fL (36.4-46.3); Red Blood Count 3.32 M/uL (4.20-5.40); White Blood Count 5.27 K/ul (4.8-10.8)
[2023-11-22 07:27] LABS: BUN Creatinine Ratio 12.2 (10-20); Creatinine Clr Calc Pharmacy 38.6 ml/min; Est GFR (African American) 60.5 ml/min; Est GFR (Non-African American) 52.2 ml/min; Potassium 3.6 mmol/L (3.5-5.1)
[2023-11-22 08:04] LABS: ANTI-Xa, UFH(UnfractionatedHep 0.51 IU/ml (0.3-0.7)
[2023-11-22] MEDS: OXYBUTYNIN CHLORIDE XL 5 MG TABCR PO SCH (08:11)
[2023-11-22] MEDS: VIBEGRON 75 MG TAB PO SCH (08:11)
[2023-11-22] MEDS: ATORVASTATIN 20 MG TAB PO SCH (08:11)
--- NOTE | 2023-11-22 09:53 | Surgery Progress Note ---
Date of Service November 22, 2023 Assessment & Plan (1) Colonic mass: Plan: will plan hand assisted lap R colon resection in AM risks and benefits explained in detail consent obtained NPO p MN abx institutional research coordinator to OR Admission and Anticipated Discharge Date Admission Date: November 18, 2023 Subjective patient without complaints Review of Systems Constitutional: no fever and no chills Respiratory: no cough and no dyspnea Cardiovascular: no chest pain Gastrointestinal: + abdominal pain; no nausea and no vomit ing Genitourinary: no dysuria Musculoskeletal: no back pain Psychiatric: no behavioral changes Physical Exam Constitutional: WD/WN, vitals as above Eyes: PERRL, conjunctivae normal, anicteric sclerae Respiratory: normal respiratory effort, lungs clear to auscultation Cardiovascular: RRR, no murmur, no edema Gastrointestinal (Abdomen): Inspection/Auscultation: abdomen normal to inspection and normal bowel sounds; abdomen not distended Percussion/Palpation: + abdomen tender and abdomen soft; no guarding and abdomen not rigid Musculoskeletal: Head/Neck/Chest: normocephalic and head atraumatic Results & Data Vital Signs (Past 12 Hours) Vital Signs Temp Pulse Pulse Resp BP BP Pulse Ox 11/22/23 09:26 102 H 11/22/23 07:03 36.7 C 95 H 18 138/87 94 11/22/23 02:47 36.6 C 92 H 16 135/83 91 11/21/23 22:28 36.9 C 108 H 18 124/69 93 11/21/23 22:27 106 H O2 Del Method 11/22/23 09:26 11/22/23 07:03 Room Air 11/22/23 02:47 Room Air 11/21/23 22:28 Room Air 11/21/23 22:27
[2023-11-22] MEDS: IRON SUCROSE 200 MG in 0.9 % SODIUM CHLORIDE 100 ML IV ONE (10:51)
--- NOTE | 2023-11-22 14:35 | Hospitalist Progress Note ---
Date of Service November 22, 2023 Assessment & Plan (1) SBO (small bowel obstruction): Plan: From cecal mass. She is on clear liquids. Eliquis is on hold. General surgery will intervene tomorrow, November 22 (2) Colonic mass: Plan: Biopsy from colonoscopy done November 20 remains pending. More than likely this is a malignancy (3) Pacemaker: Plan: Normal function. Telemetry. (4) Paroxysmal atrial fibrillation: Plan: Eliquis is on hold. Telemetry (5) Hypertension: Plan: Stable. Continue current medical management (6) Diabetes mellitus, type 2: Plan: Clear liquids for now. Sliding scale coverage as needed. Glucose 114 today, November 21 (7) Hyperthyroidism: Plan: Stable. Continue methimazole therapy Plan Anticipate eventual discharge to home Admission and Anticipated Discharge Date Admission Date: November 18, 2023 Subjective Alert and oriented. No distress. She will undergo surgery tomorrow, November 22, with resection of the cecal mass. Biopsy from the colonoscopy that was completed November 20 remains pending. She has received 1 dose of parenteral Venofer. Eliquis is on hold. Review of Systems 2 Review of Systems: Constitutional-no fever or chills ENT-no blurred vision, no double vision, no epistaxis, no sore throat Respiratory-no cough, no wheezing, no shortness of breath Cardiac-no palpitations, no chest pain, no syncope GI-no nausea, vomiting, diarrhea, melena, hematochezia -no urinary retention, no urinary incontinence, no dysuria, no hematuria Musculoskeletal-no joint pain, no muscle tenderness Skin-no bruising, no rashes, no pruritus Neuro-no isolated weakness, no paresthesia, no weakness Psych-no depression, no anxiety Physical Exam 2 Physical Exam: General-alert and oriented x3, no fever, no chills HEENT-head atraumatic and normocephalic, pupils equal and reactive to light, extraocular muscles intact Neck-no lymphadenopathy or thyromegaly, trachea midline Chest-clear to auscultation. No rales, wheezing or rhonchi Cardiac-regular rate and rhythm, normal S1 and S2 Abdomen-normal bowel sounds, nontender, no hepatosplenomegaly Extremities-no cyanosis, clubbing, or edema Neuro-cranial nerves II through XII intact, motor and sensory function within normal limits, strength symmetrical, no focal deficits Psych-normal affect, normal mood Results & Data Results & Data Vital Signs (Past 12 Hours) Vital Signs Temp Pulse Pulse Resp BP BP Pulse Ox 11/22/23 11:41 36.2 C L 76 18 131/78 93 11/22/23 09:26 102 H 11/22/23 07:03 36.7 C 95 H 18 138/87 94 11/22/23 02:47 36.6 C 92 H 16 135/83 91 O2 Del Method 11/22/23 11:41 Room Air 11/22/23 09:26 11/22/23 07:03 Room Air 11/22/23 02:47 Room Air Laboratory Results 11/22/23 05:58 11/22/23 05:58 PG Care Time/CCT Total # of Minutes Spent Total Time Spent with Patient: Total time spent is greater than 50% in coordination of care (as documented) at patient's floor/unit and/or counseling patient: Coding Level of Care Code 70043 SUB INP/OBS CARE 3/50MIN Diagnoses SBO (small bowel obstruction) K56.609 Colonic mass K63.89 Pacemaker Z95.0 Paroxysmal atrial fibrillation I48.0 Hypertension I10 Diabetes mellitus, type 2 E11.9 Hyperthyroidism E05.90
[2023-11-22] MEDS: ESCITALOPRAM OXALATE 20 MG TAB PO SCH (17:20)
[2023-11-22] MEDS: METOPROLOL TARTRATE 1 MG/ML VIAL IV ONE (18:02)
[2023-11-22] MEDS: METOPROLOL TARTRATE 1 MG/ML VIAL IV STA (18:55)
[2023-11-22] MEDS ORDERED: STAT IV Infusion **Titration per Protocol STA (18:57)
[2023-11-22] MEDS: dilTIAZem HCL 125 MG in DEXTROSE 5% 100 ML IV SCH (19:31)
[2023-11-22] MEDS: metroNIDAZOLE 500 MG TAB PO SCH (21:35)
[2023-11-22] MEDS: ALPRAZolam 0.25 MG TABLET PO PRN (22:51)
[2023-11-23] MEDS: INSULIN ASPART PER UNIT CHARGE SC SCH ×2 (06:52→17:10)
[2023-11-23] MEDS ORDERED: PROPOFOL IV EMULSION 10 MG/ML 20 ML VIAL IV ONE (07:02)
[2023-11-23] MEDS ORDERED: ROCURONIUM BROMIDE 10 MG/ML 5 ML VIAL IV ONE (07:02)
[2023-11-23] MEDS ORDERED: fentaNYL citrate PF 100 MCG/2 ML VIAL ONE (07:02)
[2023-11-23] MEDS ORDERED: ONDANSETRON INJ 2 MG/ML 2 ML VIAL ONE (07:02)
[2023-11-23] MEDS ORDERED: LIDOCAINE 2% 2 ML VIAL/AMP(20MG/ML) INFIL ONE ×2 (07:02)
--- NOTE | 2023-11-23 07:27 | History & Physical Bridge Note ---
Date of Service November 23, 2023 History & Physical Bridge Note I have examined the patient, reviewed the History & Physical and in the interval since the performance of the History & Physical I have noted the following changes of clinical significance: no changes noted
--- NOTE | 2023-11-23 07:33 | Anesthesiology Consultation ---
Date of Service November 23, 2023 Assessment & Plan Chart Review Chart Review: Acceptable Risk for Surgery Consults Requested none History Surgery Operation Date: 11/21/23 17:15 Proposed Procedures p Colonoscopy Dr. Jose Alberto Abrams, Operation Date: 11/23/23 07:15 Proposed Procedures p Right Laparoscopic Hand-Assisted Colon Resection - Ulices Johns MD Height/Weight Height: 5 ft 6 in Weight: 69.5 kg Allergies Allergy/AdvReac Type Severity Reaction Status Date / Time levofloxacin AdvReac Intermediate Muscle Verified 11/18/23 01:36 pain (difficulty with walking) nitrofurantoin AdvReac Intermediate headache/GI Verified 11/18/23 01:36 [From Macrobid] upset/nausea Medications Home Medications Medication Instructions Recorded Confirmed Last Taken alprazolam 0.25 mg tablet (Xanax) 0.25 mg PO HS Anxiety 09/02/18 11/18/23 07/04/21 22:00 insulin glargine 100 unit/mL 16 unit subcut HS 09/02/18 11/18/23 11/16/23 subcutaneous solution (Lantus U-100 Insulin) metformin 500 mg tablet 500 mg PO BID 09/02/18 11/18/23 07/04/21 22:00 atorvastatin 20 mg tablet (Lipitor) 20 mg PO QAM 09/23/19 11/18/23 07/05/21 06:00 acetaminophen 500 mg tablet 1,000 mg PO Q6H PRN Pain 06/03/21 11/18/23 07/04/21 15:00 vibegron 75 mg tablet (Gemtesa) 75 mg PO DAILY #90 tabs 03/01/23 11/18/23 Unknown Estrogen Cream 1 applic vaginal . EVERY OTHER 06/09/23 11/18/23 Unknown NIGHT apixaban 5 mg tablet (Eliquis) 5 mg PO BID #60 tabs 06/20/23 11/18/23 11/18/23 losartan 25 mg tablet 25 mg PO QAM #30 tabs 06/20/23 11/18/23 Unknown metoprolol succinate 100 mg 100 mg PO BID #60 tabs 06/20/23 11/18/23 Unknown tablet,extended release 24 hr solifenacin 5 mg tablet (Vesicare) 5 mg PO DAILY 07/25/23 11/18/23 Unknown methimazole 5 mg tablet 5 mg PO BID 11/18/23 11/18/23 Unknown Active Medications Generic Name Dose Route Start Last Admin Trade Name Sasha PRN Reason Stop Dose Admin Alprazolam 0.25 mg 11/22/23 22:02 11/22/23 22:51 Alprazolam 0.25 Mg Tablet PO 12/22/23 22:01 0.25 mg HS PRN Administration Anxiety/Insomnia Escitalopram Oxalate 20 mg 11/22/23 16:30 11/22/23 17:20 Escitalopram Oxalate 20 Mg Tab PO 12/22/23 16:29 20 mg QAM NATANAEL Administration Pantoprazole Sodium 40 mg/ 10 mls @ 5 mls/min 11/18/23 11:00 11/22/23 10:51 Syringe IV 12/18/23 10:59 5 mls/min DAILY@1100 NATANAEL Administration Heparin Sodium/Dextrose 25,000 units in 500 mls @ 0 mls/hr 11/18/23 03:00 11/22/23 22:07 Heparin Sodium/Dextrose IV 12/18/23 02:59 0 units/hr .Q0M NATANAEL 0 mls/hr Titration Protocol 0 UNITS/HR Diltiazem HCl 125 mg/ Dextrose 125 mls @ 5 mls/hr 11/22/23 19:05 11/23/23 06:54 IV 12/22/23 19:04 5 mg/hr .Q24H NATANAEL 5 mls/hr Titration Protocol 5 MG/HR Insulin Aspart 0 units 11/23/23 06:00 11/23/23 06:52 Insulin Aspart Per Unit Charge SC 12/23/23 05:59 Not Given Q6 NATANAEL Losartan Potassium 25 mg 11/20/23 16:45 11/22/23 08:11 Losartan Potassium 25 Mg Tab PO 12/20/23 16:44 25 mg QAM NATANAEL Administration Methimazole 5 mg 11/21/23 21:00 11/22/23 21:35 Methimazole 5 Mg Tablet PO 12/21/23 20:59 5 mg BID NATANAEL Administration Metoprolol Tartrate 100 mg 11/19/23 21:00 11/22/23 21:35 Metoprolol Tartrate 100 Mg Tab PO 12/19/23 20:59 100 mg BID NATANAEL Administration Metronidazole 500 mg 11/22/23 21:00 11/22/23 21:35 Metronidazole 500 Mg Tab PO 12/02/23 20:59 500 mg BID NATANAEL Administration Protocol Ondansetron HCl 4 mg 11/18/23 03:00 11/18/23 07:45 Ondansetron Inj 2 Mg/Ml 2 Ml Vial IV 12/18/23 02:59 4 mg Q6H PRN Administration NAUSEA/VOMITING Oxybutynin Chloride 5 mg 11/22/23 09:00 11/22/23 08:11 Oxybutynin Chloride Xl 5 Mg Tabcr PO 12/22/23 08:59 5 mg DAILY NATANAEL Administration Vibegron 75 mg 11/22/23 09:00 11/22/23 08:11 Vibegron 75 Mg Tab PO 12/22/23 08:59 75 mg DAILY NATANAEL Administration NPO Date Last Intake of Fluids: 11/22/23 Time Last Intake of Fluids: 23:00 Date Last Intake of Solids: 11/22/23 Time Last Intake of Solids: 18:00 Last Intake of Solids Comment: before admission Past Medical History Medical History Aspiration pneumonitis Acute respiratory failure with hypoxia Hypertensive urgency Pulmonary edema Acute bronchospasm Anemia Blood transfusions several years ago (r/t DVTs/acute blood loss) Presence of IVC filter Chronic back pain Osteoarthritis Kidney stones Pancreatitis Remote hx Diabetes mellitus, type 2 IDDM Hyperthyroidism on Methimazole/managed by PCP Depression Anxiety BCC (basal cell carcinoma) Hyperlipidemia Pacemaker Implanted 2011, 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 Holliday Hypertension Essential tremor Facial, hands CHF (congestive heart failure) Past Family History Family History Brother Family history of diabetes mellitus Brother Family history of diabetes mellitus Sister Family history of diabetes mellitus Grandmother (Paternal) Family history of diabetes mellitus Grandmother (Maternal) Breast cancer Denies family history of Ovarian cancer Colorectal cancer Past Surgical History Surgical History History of esophagogastroduodenoscopy (EGD) History of cystoscopy Cystoscopy, b/l ureteronephroscopy, laser lithotripsy (11/07/19): LMA#4 iGel, atraumatic insertion at [facility] History of cardiac cath 2011 > no stents PONV (postoperative nausea and vomiting) History of total knee replacement Right History of colonoscopy History of appendectomy Status post Mohs surgery S/P epidural steroid injection History of cardiac radiofrequency ablation S/P cardiac pacemaker procedure Hx of tonsillectomy History of hysterectomy MARC and BSO Social History Smoking Status: Never smoker Do You Dip or Chew Tobacco: No Hx Alcohol Use: No Alcohol type: wine Hx Substance Use: No substance use type: does not use Physical Exam Vital Signs Last Vital Signs Temp 36.4 C L 11/23/23 07:13 Pulse 89 11/23/23 07:29 Resp 18 11/23/23 07:13 BP 164/80 H 11/23/23 07:13 Pulse Ox 96 11/23/23 07:13 O2 Del Method Room Air 11/23/23 07:13 Testing Laboratory Results PT 12.0 Seconds (9.0-12.0) 11/21/23 12:49 INR 1.1 (0.9-1.1) 11/21/23 12:49 APTT 41 Seconds (21-31) H 11/18/23 05:35 Hemoglobin A1c 5.7 % (4.5-5.6) H 11/18/23 05:35 Urine Color Yellow 11/17/23 23:00 Urine Appearance Clear (Clear) 11/17/23 23:00 Urine pH 6.5 (4.5-7.5) 11/17/23 23:00 Ur Specific [place] 1.012 (1.000-1.030) 11/17/23 23:00 Urine Protein Negative (Negative) 11/17/23 23:00 Urine Glucose (UA) Negative (Negative) 11/17/23 23:00 Urine Ketones Trace (Negative) H 11/17/23 23:00 Urine Nitrite Negative (Negative) 11/17/23 23:00 Ur Leukocyte Esterase Trace (Negative) H 11/17/23 23:00 Urine WBC (Auto) 10-30 /hpf (0-5) H 11/17/23 23:00 Urine RBC (Auto) 10-30 /hpf (0-4) H 11/17/23 23:00 U Hyaline Cast (Auto) 0 /lpf (0-5) 11/17/23 23:00 U Epithel Cells (Auto) 10-20 /lpf (0-5) H 11/17/23 23:00 Urine Bacteria (Auto) Negative (Negative) 11/17/23 23:00 Blood Type O Positive 11/22/23 20:32 Antibody Screen NEGATIVE 11/22/23 20:32 11/17/23 23:00 Urine Culture - Final Urine,Straight Cath No growth - less than 1,000 colonies/mL. 11/23/23 11/22/23 06:06 20:19 POC Glucose 95 173 H
[2023-11-23 07:35] LABS: Hematocrit (blood only) 32.2 % (37.0-47.0); Hemoglobin 9.3 g/dl (12.0-16.0); Mean Corpuscular Hemoglobin 26.7 pg (25.0-34.0); Mean Corpuscular Hgb Conc 28.9 g/dL (32.0-36.0); Mean Corpuscular Volume 92.5 fL (80.0-100.0); Mean Platelet Volume 9.5 fL (9.4-12.4); Platelet Count 272 K/uL (130-400); RDW Coefficient of Variation 20.1 % (11.5-14.5); RDW Standard Deviation 68.3 fL (36.4-46.3); Red Blood Count 3.48 M/uL (4.20-5.40); White Blood Count 5.97 K/ul (4.8-10.8)
[2023-11-23] MEDS ORDERED: HYDROmorphone INJ 2 MG/ML SYR/VIAL IV PRN (07:37)
[2023-11-23] MEDS ORDERED: ePHEDrine sulfate 50 MG/ML AMP IV PRN (07:37)
[2023-11-23] MEDS ORDERED: ATROPINE SULFATE 0.1 MG/ML 10ML SYR IV PRN (07:37)
[2023-11-23] MEDS ORDERED: PROMETHAZINE HCL 6.25 MG in SODIUM CHLORIDE 0.9% 50 ML IV PRN (07:37)
[2023-11-23] MEDS ORDERED: ONDANSETRON INJ 2 MG/ML 2 ML VIAL IV PRN ×2 (07:37→11:26)
[2023-11-23 07:55] LABS: Anisocytosis Present; Basophils # (auto) 0.01 K/uL (0.00-0.20); Basophils % (auto) 0.2 %; Eosinophils # (auto) 0.26 K/uL (0.00-0.50); Eosinophils % (auto) 4.4 %; Immature Granulocytes # (auto) 0.03 K/uL (0.01-0.20); Immature Granulocytes % (auto) 0.5 %; Lymphocytes # (auto) 1.16 K/uL (1.20-3.40); Lymphocytes % (auto) 19.4 %; Monocytes # (auto) 0.52 K/uL (0.11-0.59); Monocytes % (auto) 8.7 %; Neutrophils # (auto) 3.99 K/uL (1.40-6.50); Neutrophils % (auto) 66.8 %; Ovalocytes 1+
[2023-11-23 08:03] LABS: BUN Creatinine Ratio 15.7 (10-20); Calcium 8.4 mg/dl (8.6-10.3); Creatinine Clr Calc Pharmacy 42.5 ml/min; Est GFR (Non-African American) 58.7 ml/min; Potassium 3.6 mmol/L (3.5-5.1)
[2023-11-23 08:04] LABS: ANTI-Xa, UFH(UnfractionatedHep < 0.10 IU/ml (0.3-0.7)
[2023-11-23] MEDS: ceFAZolin 2000MG 2,000 MG/15 ML SYR IV SCH (08:06)
--- NOTE | 2023-11-23 08:26 | Hospitalist Progress Note ---
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 (2) Pacemaker: Plan: Normal function. Telemetry. (3) Paroxysmal atrial fibrillation: Plan: Chronic and stable Eliquis is on hold. outpt on metoprolol given with small sip and backup iv metoprolol offered additionally now on diltiazem gtt (4) Diabetes mellitus, type 2: Plan: Sliding scale coverage as needed. poc glucose reviewed (5) Hyperthyroidism: Plan: Stable. Continue methimazole therapy Admission and Anticipated Discharge Date Admission Date: November 18, 2023 Subjective pt is seen postoperatively, does c/o abdominal pain, surgery ordered an abdominal binder and iv tylenol certainly will need to progress oral intake in step with resumption of bowel function Physical Exam Physical Exam: abd is soft and with some voluntary guarding, hypoactive bowel sounds awake and alert, cardiac is regular Results & Data Results & Data Vital Signs (Past 12 Hours) Vital Signs Temp Pulse Pulse Resp BP BP Pulse Ox 11/23/23 07:29 89 11/23/23 07:13 97.5 F L 95 H 18 164/80 H 96 11/23/23 02:47 98.1 F 76 17 113/66 91 11/23/23 00:00 95 H 11/22/23 23:11 97.3 F L 68 17 132/76 94 O2 Del Method 11/23/23 07:29 11/23/23 07:13 Room Air 11/23/23 02:47 Room Air 11/23/23 00:00 11/22/23 23:11 Room Air Laboratory Results review cbc review chemistry PG Care Time/CCT Total # of Minutes Spent Total Time Spent with Patient: Total time spent is greater than 50% in coordination of care (as documented) at patient's floor/unit and/or counseling patient: Coding Level of Care Code 20730 SUB INP/OBS CARE 2/35MIN Diagnoses SBO (small bowel obstruction) K56.609 Pacemaker Z95.0 Paroxysmal atrial fibrillation I48.0 Diabetes mellitus, type 2 E11.9 Hyperthyroidism E05.90
[2023-11-23] MEDS ORDERED: DEXAMETHASONE SOD INJ 4 MG/ML VIAL ONE (09:33)
[2023-11-23] MEDS ORDERED: PHENYLEPHRINE 100MCG/ML 10ML SYR IV ONE (09:33)
[2023-11-23] MEDS ORDERED: SUGAMMADEX SODIUM 200 MG/2 ML VIAL IV ONE (09:35)
--- NOTE | 2023-11-23 09:42 | Post Operative Brief Note ---
Immediate Post Op Note v1 Date of Surgery November 23, 2023 Pre & Post Diagnosis Operation Date: 11/23/23 07:15 Pre-Op Diagnosis: Right Colon Mass Post-Op Diagnosis: Right Colon Mass I identified the patient and participated in the time-out.: Yes Procedure Operation Date: 11/23/23 07:15 Actual Procedures p Right Laparoscopic Hand-Assisted Colon Resection(Right) - Ulices Johns MD Surgeon Ulices Johns MD [employer] Brinda Grey PA-C Estimated Blood Loss 0 Findings Consistent with Post-Op Diagnosis
[2023-11-23] MEDS: BUPIVACAINE/EPINEPHRINE 0.5% MPF 1:200,000 30 ML VIAL ONE (09:43)
--- NOTE | 2023-11-23 09:46 | Operative Report ---
Post Operative Report Pre & Post Diagnosis Operation Date: 11/23/23 07:15 Pre-Op Diagnosis: Right Colon Mass Post-Op Diagnosis: Right Colon Mass I identified the patient and participated in the time-out.: Yes Procedure Operation Date: 11/23/23 07:15 Actual Procedures p Right Laparoscopic Hand-Assisted Colon Resection(Right) - Ulices Johns MD Surgeon Ulices Johns MD Director Of Elementary Education Brinda Grey PA-C Estimated Blood Loss 0 Findings Consistent with Post-Op Diagnosis Large cecal mass. No obvious metastatic disease. Some prominent lymph nodes noted. Specimens Extended right hemicolectomy Drains None Anesthesia Type General Complications None Indications This is an 88-year-old female who was undergoing a colonoscopy for some abnormal CT findings. There was a large cecal mass noted. Pathology still pending. There was a bit of an obstructive pattern. CEA level was not elevated. We talked to the patient in detail and recommended a hand-assisted laparoscopic right colon resection for the possibility of cancer and unresectable cecal mass. She understands this and wished to proceed. The risks and benefits were all gone over with her in detail. Description of Procedure The patient was taken to the OR and underwent excellent general endotracheal anesthesia. A Ramesh was placed preoperatively. Her abdomen was then prepped and draped in normal sterile fashion. A 7 cm infraumbilical midline incision was made. Dissection was taken down to identify her fascia which was incised. Once the peritoneal cavity was entered a hand-assisted GelPort was inserted. A good pneumoperitoneum was achieved to 15 mmHg pressure. A 11 subxiphoid port was placed. And a 12 left upper quadrant port was placed. Patient was placed in a little bit of Trendelenburg and the omentum was folded superiorly. Portion of the transverse colon was identified just around the hepatic flexure. The gastrocolic ligament was taken down with harmonic scalpel this was extended around the hepatic flexure. Once this was done the peritoneal reflection was taken down using harmonic scalpel to free up the entire right colon. This was fairly routine without any major difficulties. Once the lateral attachments of the colon were completely mobilized attention was turned medially where the peritoneum of the mesentery was incised with the harmonic scalpel. This was taken to placed just proximal to the cecum near area of the terminal ileum. Once entire colon was mobilized the right colon was brought out through the HandPort and the pneumoperitoneum was decompressed. A spot in the transverse colon was identified and transected with a ANGI stapler stapler. A similar spot in the terminal ileum was noted and transected with a ANGI stapler. Once these 2 areas were transected attention was then turned to ligating the blood supply to the right colon. A Analisa clamp was placed proximally on the blood supply and the blood supply was clamped. This was transected and a silk tie was used to ligate the blood supply. The entire right colon along with this lymph node which was initially left on her proximal margin was taken and sent for pathologic evaluation. The abdomen was then irrigated out and suctioned to clear there is no obvious bleeders. A functional end-to-end anastomosis was created in a [id number] manner. This was done with a ANGI stapler. The defect was then closed with a ANGI stapler and reinforced with interrupted silks and [place] fashion. The defect in the mesentery was closed with interrupted silks. This completed the the anastomosis and there was a good patent anastomosis and healthy tissue with good blood supply noted. Once this was completed the anastomosis was placed into the abdominal cavity. The fascia of the 7 cm incision was closed with 0 PDS suture. 0.5% Marcaine with epinephrine local was used to create a local field block in the incisions. The incisions were then closed with Vicryl's sutures and reinforced with dermabond. Sterile dressings were applied. The patient tolerated procedure without complications and was sent to postop recovery for period of observation. They will be sent to the floor when they meets criteria. Brinda Grey PA-C assisted me with the case including assisting with retraction, facilitating exposure with camera, and skin closure. No qualified surgical services asst was available for the case. I attest to the content of the Intraoperative Record and any orders documented therein. Any exceptions are noted below.
[2023-11-23] MEDS: fentaNYL citrate PF 100 MCG/2 ML VIAL IV PRN (10:01)
--- NOTE | 2023-11-23 10:38 | Anesthesiology Progress Note ---
Date of Service November 23, 2023 Anesthesia Post Procedure Vital Signs Vital Signs: Temp Pulse Pulse Pulse Resp BP BP 11/23/23 10:30 95 H 20 11/23/23 10:20 88 22 11/23/23 10:10 75 17 11/23/23 10:00 36.3 C L 84 17 11/23/23 07:29 89 11/23/23 07:13 36.4 C L 95 H 18 164/80 H 11/23/23 02:47 36.7 C 76 17 11/23/23 00:00 95 H 11/22/23 23:11 36.3 C L 68 17 11/22/23 19:13 36.5 C 84 18 11/22/23 19:13 82 150/74 H 11/22/23 18:55 116 H 175/77 H 11/22/23 18:17 110 H 150/73 H 11/22/23 18:02 126 H 153/70 H 11/22/23 15:53 85 11/22/23 15:01 36.4 C L 66 17 11/22/23 11:41 36.2 C L 76 18 BP Pulse Ox O2 Del Method O2 Flow Rate 11/23/23 10:30 150/62 H 100 Oxymask 4 11/23/23 10:20 157/79 H 100 Oxymask 6 11/23/23 10:10 156/72 H 100 Oxymask 8 11/23/23 10:00 179/75 H 99 Oxymask 8 11/23/23 07:29 11/23/23 07:13 96 Room Air 11/23/23 02:47 113/66 91 Room Air 11/23/23 00:00 11/22/23 23:11 132/76 94 Room Air 11/22/23 19:13 150/74 H 95 Room Air 11/22/23 19:13 11/22/23 18:55 11/22/23 18:17 11/22/23 18:02 11/22/23 15:53 11/22/23 15:01 137/70 95 Room Air 11/22/23 11:41 131/78 93 Room Air Pain Intensity Abdomen: Pain Intensity: 6 Transfer of Care Handoff Completed per policy Notes Mental Status: alert / awake / arousable and participated in evaluation Patient Amnestic to Procedure: Yes Nausea / Vomiting: adequately controlled Pain: adequately controlled Airway Patency, RR, SpO2: stable & adequate BP & HR: stable & adequate Hydration State: stable & adequate Anesthetic Complications: no major complications apparent
[2023-11-23] MEDS ORDERED: oxyCODONE/ACETAMINOPHEN 5mg/325mg TAB PO PRN ×2 (11:26)
[2023-11-23] MEDS ORDERED: MoRPHine SULFATE 4 MG/ML 1 ML CARP\\VIAL IV PRN (11:26)
[2023-11-23] MEDS: LACTATED RINGER'S 1,000 ML IV SCH (11:38)
[2023-11-23] MEDS: MoRPHine SULFATE 2 MG/ML CARP IV PRN ×2 (12:08→21:09)
[2023-11-23] MEDS: cefTRIAXone SODIUM 1,000 MG in DEXTROSE 5 % MINI-B 50 ML IV SCH (12:09)
--- NOTE | 2023-11-23 12:26 | Electrocardiogram Report ---
Test Reason : Blood Pressure : / mmHG Vent. Rate : 101 BPM Atrial Rate : 108 BPM P-R Int : 000 ms QRS Dur : 082 ms QT Int : 366 ms P-R-T Axes : 000 007 042 degrees QTc Int : 474 ms Atrial fibrillation with rapid ventricular response with premature ventricular or aberrantly conducte d complexes Abnormal ECG When compared with ECG of 19-NOV-2023 16:58, Atrial fibrillation has replaced Sinus rhythm ST no longer depressed in Anterolateral leads T wave inversion no longer evident in Inferior leads T wave inversion no longer evident in Lateral leads Confirmed by Liban Denton ([id number]) on 11/23/2023 12:25:49 PM Referred By: REFERRED SELF Confirmed By:Liban Denton
[2023-11-23] MEDS: ACETAMINOPHEN 1,000 MG/100 ML VIAL IV SCH (14:56)
--- NOTE | 2023-11-23 14:59 | XCELERA ---
[id number]
[2023-11-23] MEDS ORDERED: Nursing to Pharmacy Communication SCH (16:45)
[2023-11-23] MEDS: ATORVASTATIN 20 MG TAB PO SCH (20:51)
[2023-11-23] MEDS ORDERED: INSULIN ASPART PER UNIT CHARGE SC SCH (21:00)
[2023-11-24 07:27] LABS: Hemoglobin 9.1 g/dl (12.0-16.0); Mean Corpuscular Hemoglobin 26.6 pg (25.0-34.0); Mean Corpuscular Hgb Conc 28.4 g/dL (32.0-36.0); Mean Corpuscular Volume 93.6 fL (80.0-100.0); Platelet Count 271 K/uL (130-400); RDW Coefficient of Variation 19.9 % (11.5-14.5); RDW Standard Deviation 68.6 fL (36.4-46.3); Red Blood Count 3.42 M/uL (4.20-5.40); White Blood Count 12.25 K/ul (4.8-10.8)
[2023-11-24 07:37] LABS: BUN Creatinine Ratio 21.6 (10-20); Calcium 8.7 mg/dl (8.6-10.3); Creatinine Clr Calc Pharmacy 47.5 ml/min; Est GFR (Non-African American) 59.5 ml/min; Potassium 3.8 mmol/L (3.5-5.1)
[2023-11-24 07:43] LABS: Basophils # (auto) 0.01 K/uL (0.00-0.20); Basophils % (auto) 0.1 %; Hypochromasia Present; Immature Granulocytes # (auto) 0.05 K/uL (0.01-0.20); Immature Granulocytes % (auto) 0.4 %; Lymphocytes # (auto) 0.61 K/uL (1.20-3.40); Monocytes % (auto) 4.9 %; Neutrophils # (auto) 10.98 K/uL (1.40-6.50); Neutrophils % (auto) 89.6 %; Ovalocytes 1+; Polychromasia 1+
--- NOTE | 2023-11-24 12:44 | Surgery Progress Note ---
Date of Service November 24, 2023 Assessment & Plan (1) Colonic mass: Plan: POD # 1 s/p laparoscopic hand assisted right hemicolectomy avss postop pain controlled adequate urine output + flatus Plan: Continue pain management as needed continue antiemetics abdominal binder try to remove reid later today scds dvt prophylaxis incentive continue medical management [facility] surgery covering this weekend Admission and Anticipated Discharge Date Admission Date: November 18, 2023 Subjective feeling better this morning than yesterday afternoon, pain better controlled no n,v no chest pain or shortness of breath urinating via reid up to chair this morning small amounts of flatus tolerating clear liquids Physical Exam Constitutional: WD/WN, vitals as above cooperative and comfortable; no acute distress and not ill appearing Respiratory: normal respiratory effort; no respiratory distress Gastrointestinal (Abdomen): Inspection/Auscultation: abdomen normal to inspection; abdomen not distended Percussion/Palpation: + abdomen tender (generalized and at midline incision) and abdomen soft; no guarding, abdomen not rigid and abdomen not firm Skin: no rashes, warm and dry Psychiatric: Orientation: alert and oriented x 3 Results & Data Vital Signs (Past 12 Hours) Vital Signs Temp Pulse Pulse Resp BP Pulse Ox O2 Del Method 11/24/23 11:00 36.6 C 70 20 163/79 H 96 Room Air 11/24/23 08:00 70 11/24/23 07:53 36.7 C 68 18 177/80 H 98 Room Air 11/24/23 02:38 36.7 C 70 16 172/86 H 92 Room Air Laboratory Results 11/24/23 11/24/23 11/24/23 Range/Units Unknown 11:22 07:38 WBC (4.8-10.8) K/ul RBC (4.20-5.40) M/uL Hgb (12.0-16.0) g/dl Hct (37.0-47.0) % MCV (80.0-100.0) fL MCH (25.0-34.0) pg MCHC (32.0-36.0) g/dL RDW Std Deviation (36.4-46.3) fL RDW Coeff of Cruz (11.5-14.5) % Plt Count (130-400) K/uL MPV (9.4-12.4) fL Immature Gran % (Auto) % Neut % (Auto) % Lymph % (Auto) % Bollinger % (Auto) % Eos % (Auto) % Baso % (Auto) % Neut # (Auto) (1.40-6.50) K/uL Lymph # (Auto) (1.20-3.40) K/uL Bollinger # (Auto) (0.11-0.59) K/uL Eos # (Auto) (0.00-0.50) K/uL Baso # (Auto) (0.00-0.20) K/uL Immature Gran # (Auto) (0.01-0.20) K/uL Polychromasia Hypochromasia Ovalocytes Sodium (136-145) mmol/L Potassium (3.5-5.1) mmol/L Chloride (98-107) mmol/L Carbon Dioxide (21-32) mmol/L Anion Gap (3-11) BUN (6-23) mg/dl Creatinine (0.6-1.2) mg/dl Est Cr Clr Drug Dosing ml/min Est GFR ( Amer) ml/min Est GFR (Non-Af Amer) ml/min BUN/Creatinine Ratio (10-20) Glucose (70-99(Fasting)) mg/dl POC Glucose 207 H 215 H (70-99) mg/dl Calcium (8.6-10.3) mg/dl BRAF Mutation Pending MLH1 Promoter Methylat Pending 11/24/23 11/23/23 11/23/23 Range/Units 06:03 20:55 16:03 WBC 12.25 H (4.8-10.8) K/ul RBC 3.42 L (4.20-5.40) M/uL Hgb 9.1 L (12.0-16.0) g/dl Hct 32.0 L (37.0-47.0) % MCV 93.6 (80.0-100.0) fL MCH 26.6 (25.0-34.0) pg MCHC 28.4 L (32.0-36.0) g/dL RDW Std Deviation 68.6 H (36.4-46.3) fL RDW Coeff of Cruz 19.9 H (11.5-14.5) % Plt Count 271 (130-400) K/uL MPV 10.0 (9.4-12.4) fL Immature Gran % (Auto) 0.4 % Neut % (Auto) 89.6 % Lymph % (Auto) 5.0 % Bollinger % (Auto) 4.9 % Eos % (Auto) 0.0 % Baso % (Auto) 0.1 % Neut # (Auto) 10.98 H (1.40-6.50) K/uL Lymph # (Auto) 0.61 L (1.20-3.40) K/uL Bollinger # (Auto) 0.60 H (0.11-0.59) K/uL Eos # (Auto) 0.00 (0.00-0.50) K/uL Baso # (Auto) 0.01 (0.00-0.20) K/uL Immature Gran # (Auto) 0.05 (0.01-0.20) K/uL Polychromasia 1+ Hypochromasia Present Ovalocytes 1+ Sodium 138 (136-145) mmol/L Potassium 3.8 (3.5-5.1) mmol/L Chloride 105 (98-107) mmol/L Carbon Dioxide 27 (21-32) mmol/L Anion Gap 6 (3-11) BUN 19 (6-23) mg/dl Creatinine 0.88 (0.6-1.2) mg/dl Est Cr Clr Drug Dosing 47.5 ml/min Est GFR ( Amer) 69.0 ml/min Est GFR (Non-Af Amer) 59.5 ml/min BUN/Creatinine Ratio 21.6 H (10-20) Glucose 218 H (70-99(Fasting)) mg/dl POC Glucose 226 H 198 H (70-99) mg/dl Calcium 8.7 (8.6-10.3) mg/dl BRAF Mutation MLH1 Promoter Methylat
[2023-11-24] MEDS: MoRPHine SULFATE 4 MG/ML 1 ML CARP\\VIAL IV PRN (16:33)
--- NOTE | 2023-11-24 17:44 | Hospitalist Progress Note ---
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 (2) Pacemaker: Plan: Normal function. Transfer off tele when able to transition to po rate control (3) Paroxysmal atrial fibrillation: Plan: Chronic and stable Eliquis is on hold. outpt on metoprolol given with small sip and backup iv metoprolol offered additionally now on diltiazem gtt (4) Diabetes mellitus, type 2: Plan: Sliding scale coverage adjusted on 11/23 (5) Hyperthyroidism: Plan: Stable. Continue methimazole therapy Admission and Anticipated Discharge Date Admission Date: November 18, 2023 Subjective pt is doing better less pain and tolerating small sips Physical Exam Physical Exam: abd is soft and improved bowel sounds, no rebound awake and alert, cardiac is regular Results & Data Results & Data Vital Signs (Past 12 Hours) Vital Signs Temp Pulse Pulse Resp BP Pulse Ox O2 Del Method 11/24/23 11:00 97.9 F 70 20 163/79 H 96 Room Air 11/24/23 08:00 70 11/24/23 07:53 98.1 F 68 18 177/80 H 98 Room Air Laboratory Results Reviewed CBC reviewed chemistry [id number]-[id number] glucoses are elevated-will tighten sliding scale PG Care Time/CCT Total # of Minutes Spent Total Time Spent with Patient: Total time spent is greater than 50% in coordination of care (as documented) at patient's floor/unit and/or counseling patient: Coding Level of Care Code 49482 SUB INP/OBS CARE 3/50MIN Diagnoses SBO (small bowel obstruction) K56.609 Pacemaker Z95.0 Paroxysmal atrial fibrillation I48.0 Diabetes mellitus, type 2 E11.9 Hyperthyroidism E05.90
--- NOTE | 2023-11-25 06:00 | Surgery Progress Note ---
Date of Service November 25, 2023 Assessment & Plan (1) SBO (small bowel obstruction): Plan: Patient is status post right hemicolectomy on 11/23/2023 (postop day #2) Surgical pathology is pending Provide analgesics as needed Provide antiemetics as needed Continue clear liquids until patient has further return of bowel function Continue intravenous fluids until oral intake is deemed adequate Check a.m. labs when available Ramesh is to be discontinued this morning Increase activity as able Admission and Anticipated Discharge Date Admission Date: November 18, 2023 Supervising Physician Co-Signing Physician Notes I have seen and examined this patient and agree with the assessment. Doing well, Leukocytosis resolved F/u in am Subjective Patient is resting comfortably in bed. She notes her pain is well-controlled at the present time. She denies any nausea or vomiting. She has passed flatus but has not had a bowel movement since surgery. Patient has ambulated very little but has been out of bed to chair. I discussed with night clerk auditor RN who confirmed the above and did not voice any concerns at this time. Physical Exam Gastrointestinal (Abdomen): Abdomen is soft and nondistended with positive bowel sounds. There is minimal pain with palpation. Surgical incisions are clean, dry, and intact. Results & Data Vital Signs (Past 12 Hours) Vital Signs Temp Pulse Pulse Resp BP Pulse Ox O2 Del Method 11/25/23 03:40 36.4 C L 71 16 158/71 H 91 Room Air 11/24/23 23:42 36.4 C L 69 17 132/65 93 Room Air 11/24/23 22:03 70 11/24/23 19:35 36.4 C L 72 17 133/80 96 Room Air PG Care Time/CCT Total # of Minutes Spent Total Time Spent with Patient: Total time spent is greater than 50% in coordination of care (as documented) at patient's floor/unit and/or counseling patient: Coding Level of Care Code 25025 Post Operative Follow-Up Diagnoses SBO (small bowel obstruction) K56.609
[2023-11-25 07:03] LABS: Hematocrit (blood only) 28.2 % (37.0-47.0); Hemoglobin 8.1 g/dl (12.0-16.0); Mean Corpuscular Hemoglobin 26.8 pg (25.0-34.0); Mean Corpuscular Hgb Conc 28.7 g/dL (32.0-36.0); Mean Corpuscular Volume 93.4 fL (80.0-100.0); Mean Platelet Volume 9.6 fL (9.4-12.4); Platelet Count 258 K/uL (130-400); RDW Coefficient of Variation 19.7 % (11.5-14.5); RDW Standard Deviation 67.3 fL (36.4-46.3); Red Blood Count 3.02 M/uL (4.20-5.40); White Blood Count 9.42 K/ul (4.8-10.8)
[2023-11-25 07:15] LABS: Basophils # (auto) 0.01 K/uL (0.00-0.20); Basophils % (auto) 0.1 %; Eosinophils # (auto) 0.05 K/uL (0.00-0.50); Eosinophils % (auto) 0.5 %; Hypochromasia Present; Immature Granulocytes # (auto) 0.07 K/uL (0.01-0.20); Immature Granulocytes % (auto) 0.7 %; Lymphocytes # (auto) 0.86 K/uL (1.20-3.40); Lymphocytes % (auto) 9.1 %; Monocytes # (auto) 0.55 K/uL (0.11-0.59); Monocytes % (auto) 5.8 %; Neutrophils # (auto) 7.88 K/uL (1.40-6.50); Neutrophils % (auto) 83.8 %; Ovalocytes 1+; Polychromasia 1+
[2023-11-25 07:46] LABS: BUN Creatinine Ratio 23.8 (10-20); Calcium 8.3 mg/dl (8.6-10.3); Creatinine Clr Calc Pharmacy 52.2 ml/min; Est GFR (African American) 77.4 ml/min; Est GFR (Non-African American) 66.8 ml/min; Potassium 3.7 mmol/L (3.5-5.1)
--- NOTE | 2023-11-25 14:03 | Hospitalist Progress Note ---
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 Malignant neoplasm of colon/cecum (2) Pacemaker: Plan: Normal function. Transfer off tele when able to transition to po rate control , now on po metoprolol adding some diltiazem for htn control po as d/c diltiazem gtt 11/24 (3) Paroxysmal atrial fibrillation: Plan: Chronic and stable Eliquis is on hold. home metopolol and low dose short acting po diltiazem (4) Diabetes mellitus, type 2: Plan: Sliding scale coverage adjusted on 11/23 (5) Hyperthyroidism: Plan: Stable. Continue methimazole therapy Admission and Anticipated Discharge Date Admission Date: November 18, 2023 Subjective Patient pain is well-controlled at the present time. She has passed flatus but has not had a bowel movement since surgery. Patient has ambulated very little but has been out of bed to chair. PT/OT eval pending family at bedside and updated. stopping iv meds and transition to po, likely transition out of PCU soon Physical Exam Physical Exam: abd is soft and normal bowel sounds, no rebound awake and alert, cardiac is regular Results & Data Results & Data Vital Signs (Past 12 Hours) Vital Signs Temp Pulse Pulse Resp BP Pulse Ox O2 Del Method 11/25/23 12:33 179/75 H 11/25/23 11:43 97.2 F L 70 17 181/90 H 94 Room Air 11/25/23 07:20 97.9 F 72 18 146/75 H 92 Room Air 11/25/23 05:46 70 11/25/23 03:40 97.5 F L 71 16 158/71 H 91 Room Air Laboratory Results reviewed cbc- > mild acute blood loss anemia hgb dropped 1 gram reviewed chemistry PG Care Time/CCT Total # of Minutes Spent Total Time Spent with Patient: Total time spent is greater than 50% in coordination of care (as documented) at patient's floor/unit and/or counseling patient: Coding Level of Care Code 42682 SUB INP/OBS CARE 3/50MIN Diagnoses SBO (small bowel obstruction) K56.609 Pacemaker Z95.0 Paroxysmal atrial fibrillation I48.0 Diabetes mellitus, type 2 E11.9 Hyperthyroidism E05.90
[2023-11-25] MEDS: dilTIAZem HCL 30 MG TAB PO SCH (14:47)
--- NOTE | 2023-11-26 05:00 | Surgery Progress Note ---
Date of Service November 26, 2023 Assessment & Plan (1) SBO (small bowel obstruction): Plan: Patient is status post right hemicolectomy on 11/23/2023 (postop day #3) Surgical pathology is pending Continue analgesics as needed Continue antiemetics as needed Continue full liquids liquids for the present time. Consideration may be given to advancing diet if her abdominal exam remains favorable Continue intravenous fluids until oral intake is deemed adequate Due to patient's reported bilateral lower extremity calf pain we will check ultrasounds to assess for the presence of a DVT Check a.m. labs when available If patient's hemoglobin and hematocrit remained stable consideration can be given to resuming patient's Eliquis Continue to mobilize as able Admission and Anticipated Discharge Date Admission Date: November 18, 2023 Supervising Physician Co-Signing Physician Notes I have seen and examined the patient this am. I agree with the assessment. Based on her H/H stability as previously described in surgical PA's plan, I see she was started on Eliquis. Consideration could have been to also consider Heparin if therapeutic anticoagulation is highly recommended to resume as early as possible as the patient did have an increase in her WBC this am and is now with a leukocytosis. May just be transient/post inflammatory. F/U labs in the am. Clinically the patient does not seem to be showing signs of an anastomotic issue at this time. If there are questions regarding this based on her am labs and clinical presentation, the Eliquis may need to be held again and this will be assessed by her primary surgical team in the am. She reportedly c/o LE swelling which prompted b/l LE US which was negative. Her primary surgical team will follow up in the am. Please contact front desk assistant surgeon if there are questions or concerns prior to this. Subjective Patient is currently resting comfortably in bed. She denies any shortness of breath. Patient says that she has tolerated full liquids without nausea or vomiting. She notes that she has moved her bowels since surgery she says she does not have an exorbitant appetite at this time but denies any worsening abdominal pain. Patient does note that she has some lower extremity pain and s ome bilateral calf pain. She does report she has a history of a DVT in the past and takes Eliquis as an outpatient which has not been resumed yet since surgery. Physical Exam Gastrointestinal (Abdomen): Abdomen is soft and nondistended with positive bowel sounds. Appropriate pain and tenderness is noted near surgical incision. Her incision is clean, dry, and intact. Musculoskeletal: 1+ bilateral lower extremity edema is no camryn. Patient also was noted to have calf pain with squeezing of her calves bilaterally. Results & Data Vital Signs (Past 12 Hours) Vital Signs Temp Pulse Pulse Resp BP BP Pulse Ox 11/26/23 03:20 36.4 C L 82 17 188/91 H 92 11/25/23 23:35 36.4 C L 73 18 150/76 H 94 11/25/23 20:34 36.5 C 69 17 198/88 H 94 11/25/23 18:00 70 O2 Del Method 11/26/23 03:20 Room Air 11/25/23 23:35 Room Air 11/25/23 20:34 Room Air 11/25/23 18:00 PG Care Time/CCT Total # of Minutes Spent Total Time Spent with Patient: Total time spent is greater than 50% in coordination of care (as documented) at patient's floor/unit and/or counseling patient: Coding Level of Care Code 19286 SUB INP/OBS CARE 09/21MIN Diagnoses SBO (small bowel obstruction) K56.609
[2023-11-26 06:51] LABS: Basophils # (auto) 0.01 K/uL (0.00-0.20); Basophils % (auto) 0.1 %; Eosinophils # (auto) 0.42 K/uL (0.00-0.50); Eosinophils % (auto) 3.3 %; Hematocrit (blood only) 34.7 % (37.0-47.0); Hemoglobin 9.9 g/dl (12.0-16.0); Hypochromasia Present; Immature Granulocytes # (auto) 0.08 K/uL (0.01-0.20); Immature Granulocytes % (auto) 0.6 %; Lymphocytes # (auto) 1.37 K/uL (1.20-3.40); Lymphocytes % (auto) 10.7 %; Mean Corpuscular Hemoglobin 26.7 pg (25.0-34.0); Mean Corpuscular Hgb Conc 28.5 g/dL (32.0-36.0); Mean Corpuscular Volume 93.5 fL (80.0-100.0); Mean Platelet Volume 9.4 fL (9.4-12.4); Monocytes # (auto) 0.93 K/uL (0.11-0.59); Monocytes % (auto) 7.2 %; Neutrophils # (auto) 10.05 K/uL (1.40-6.50); Neutrophils % (auto) 78.1 %; Nucleated RBC # (auto) 0.02 K/uL (0.00-0.12); Nucleated RBC % (auto) 0.2 %; Platelet Count 371 K/uL (130-400); Polychromasia 1+; RDW Coefficient of Variation 19.8 % (11.5-14.5); RDW Standard Deviation 66.6 fL (36.4-46.3); Red Blood Count 3.71 M/uL (4.20-5.40); White Blood Count 12.86 K/ul (4.8-10.8)
--- NOTE | 2023-11-26 06:55 | Ultrasound Report ---
ULTRASOUND BILATERAL LOWER EXTREMITY VENOUS CLINICAL HISTORY: Bilateral calf pain. COMPARISON STUDY: Right lower extremity venous ultrasound dated 08/21/2017. Left lower extremity veno us ultrasound dated 08/19/2017 TECHNIQUE: Real-time, grayscale, and color Doppler sonography of the deep veins of the right and left lower extremity was performed from the inguinal crease to the calf. Compression and augmentation wer e utilized. FINDINGS: There is no sonographic evidence of deep venous thrombosis identified in the right or left lower extremity. The common femoral, superficial femoral, and popliteal veins are patent and normally compressible bilaterally. The greater saphenous vein and the profunda femoris vein at the junction w ith the common femoral vein are clear in both legs. The visualized calf veins are patent bilaterally. A minimally complex popliteal cyst on the left measures 6.3 x 2.1 x 5.2 cm. Edema is seen in both le gs. IMPRESSION: 1. There is no sonographic evidence of deep venous thrombosis identified in the right or left lower e xtremity. 2. A popliteal cyst is noted on the left. ACT 112: Negative or not required by law. Electronically signed by: Adolph Moura M.D. 11/26/2023 6:53 AM
--- NOTE | 2023-11-26 07:59 | Hospitalist Progress Note ---
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 Transfer off tele when able to transition to po rate control , now on po metoprolol adding some diltiazem for htn control po as d/c diltiazem gtt 11/24 (3) Paroxysmal atrial fibrillation: Plan: Chronic and stable Eliquis restarted 11/25, calf pain prompted a LE doppler which was negative for DVT home metoprolol and converted to diltiazem cd (4) Diabetes mellitus, type 2: Plan: Sliding scale coverage adjusted on 11/23 (5) Hyperthyroidism: Plan: Stable. Continue methimazole therapy Plan transfer to med surg all meds and orders reviwed Admission and Anticipated Discharge Date Admission Date: November 18, 2023 Subjective Patient pain is well-controlled at the present time. She has passed flatus but and tolerating diet. Patient has ambulated very little but has been out of bed to chair. PT/OT eval pending family at bedside and updated. stopping iv meds and transition to po, l advance diet to soft Physical Exam Physical Exam: abd is soft and normal bowel sounds, no rebound awake and alert, cardiac is regular Results & Data Results & Data Vital Signs (Past 12 Hours) Vital Signs Temp Pulse Resp BP BP Pulse Ox O2 Del Method 11/26/23 03:20 97.5 F L 82 17 188/91 H 92 Room Air 11/25/23 23:35 97.5 F L 73 18 150/76 H 94 Room Air 11/25/23 20:34 97.7 F 69 17 198/88 H 94 Room Air Laboratory Results review cbc review chemistry PG Care Time/CCT Total # of Minutes Spent Total Time Spent with Patient: Total time spent is greater than 50% in coordination of care (as documented) at patient's floor/unit and/or counseling patient: Coding Level of Care Code 02070 SUB INP/OBS CARE 3/50MIN Diagnoses SBO (small bowel obstruction) K56.609 Pacemaker Z95.0 Paroxysmal atrial fibrillation I48.0 Diabetes mellitus, type 2 E11.9 Hyperthyroidism E05.90
[2023-11-26] MEDS: dilTIAZem HCL 180 MG CAPCR PO SCH (09:10)
[2023-11-26] MEDS: APIXABAN 5 MG TABLET PO SCH (09:10)
[2023-11-26] MEDS: ACETAMINOPHEN 500 MG TAB PO PRN (14:32)
[2023-11-26] MEDS ORDERED: oxyCODONE HCL IR 5 MG TAB (IMMEDIATE RELEASE) PO PRN (20:59)
[2023-11-26] MEDS: FAMOTIDINE 20 MG TAB PO SCH (21:49)
--- NOTE | 2023-11-27 14:28 | Surgery Progress Note ---
Date of Service November 27, 2023 Assessment & Plan (1) Colonic mass: Plan: slow progress ambulate taking po OK path pending Admission and Anticipated Discharge Date Admission Date: November 18, 2023 Subjective pain controlled taking po ambulate Review of Systems Constitutional: no fever and no chills Respiratory: no cough and no dyspnea Cardiovascular: no chest pain Gastrointestinal: + abdominal pain; no nausea, no vomiting and no change in bowel habits Genitourinary: no dysuria Musculoskeletal: no back pain Neurologic: + generalized weakness; no localized wea kness Psychiatric: no behavioral changes Physical Exam Constitutional: WD/WN, vitals as above Gastrointestinal (Abdomen): Inspection/Auscultation: abdomen normal to inspection, normal bowel sounds and + abdominal surgical incision; abdomen not distended Percussion/Palpation: + abdomen tender and abdomen soft; no guarding and abdomen not rigid Musculoskeletal: Head/Neck/Chest: normocephalic and head atraumatic Skin: no rashes, warm and dry Results & Data Vital Signs (Past 12 Hours) Vital Signs Temp Pulse Resp BP Pulse Ox O2 Del Method 11/27/23 11:06 Room Air 11/27/23 07:45 36.6 C 77 16 186/75 H 95 Room Air
--- NOTE | 2023-11-27 15:17 | Hospitalist Progress Note ---
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 Continue po metoprolol plus CD diltiazem for htn control (3) Paroxysmal atrial fibrillation: Plan: Chronic and stable Eliquis restarted 11/25, calf pain prompted a LE doppler which was negative for DVT home metoprolol and converted to diltiazem cd (4) Diabetes mellitus, type 2: Plan: Sliding scale coverage adjusted on 11/23 improving control since adjusting (5) Hyperthyroidism: Plan: Stable. Continue methimazole therapy Admission and Anticipated Discharge Date Admission Date: November 18, 2023 Subjective Patient looks and feels much better. Eating pured diet. Having no abdominal discomfort. Still having no formed or substance of her bowel movements but having flatus Physical Exam Physical Exam: abd is soft and normal bowel sounds, no rebound awake and alert, cardiac is regular Results & Data Results & Data Vital Signs (Past 12 Hours) Vital Signs Temp Pulse Resp BP Pulse Ox O2 Del Method 11/27/23 11:06 Room Air 11/27/23 07:45 97.9 F 77 16 186/75 H 95 Room Air PG Care Time/CCT Total # of Minutes Spent Total Time Spent with Patient: Total time spent is greater than 50% in coordination of care (as documented) at patient's floor/unit and/or counseling patient: Coding Level of Care Code 70848 SUB INP/OBS CARE 2/35MIN Diagnoses SBO (small bowel obstruction) K56.609 Pacemaker Z95.0 Paroxysmal atrial fibrillation I48.0 Diabetes mellitus, type 2 E11.9 Hyperthyroidism E05.90
[2023-11-27] MEDS: FUROSEMIDE INJ 20 MG/2 ML VIAL IV ONE (16:13)
--- NOTE | 2023-11-28 09:37 | Surgery Progress Note ---
Date of Service November 28, 2023 Assessment & Plan (1) Adenocarcinoma of colon: Plan: path pending slow progress con't to work on activity pain controlled Present on Admission?: Yes Admission and Anticipated Discharge Date Admission Date: November 18, 2023 Subjective taking po well ambulating better regular diet Review of Systems Constitutional: no fever and no chills Respiratory: no cough and no dyspnea Cardiovascular: no chest pain Gastrointestinal: no abdominal pain, no nausea and no vomiting Genitourinary: no dysuria Neurologic: no localized weakness and no generalized weakness Psychiatric: no behavioral changes Physical Exam Constitutional: WD/WN, vitals as above Respiratory: normal respiratory effort, lungs clear to auscultation Cardiovascular: RRR, no murmur, no edema Gastrointestinal (Abdomen): Inspection/Auscultation: abdomen normal to inspection, normal bowel sounds and + abdominal surgical incision; abdomen not distended Percussion/Palpation: + abdomen tender and abdomen soft; no guarding and abdomen not rigid Skin: no rashes, warm and dry Results & Data Vital Signs (Past 12 Hours) Vital Signs Temp Pulse Resp BP Pulse Ox O2 Del Method 11/28/23 07:16 36.4 C L 69 16 179/72 H 94 Room Air 11/27/23 23:16 36.8 C 69 16 145/72 H 93 Room Air
--- NOTE | 2023-11-28 14:23 | Hospitalist Progress Note ---
Date of Service November 28, 2023 Assessment & Plan (1) SBO (small bowel obstruction): Plan: From cecal mass confirmed on Colonoscopy 11/20, malignant appearing, for colonic resection 11/22, path shows adenocarcinoma on colonsocopy sample tolerated advancing diet Malignant neoplasm of colon/cecum, will follow up with Dr [address] oncology (2) Pacemaker: Plan: Normal function. Continue po metoprolol plus CD diltiazem for htn control (3) Paroxysmal atrial fibrillation: Plan: Chronic and stable Eliquis restarted 11/25, calf pain prompted a LE doppler which was negative for DVT home metoprolol and converted to diltiazem cd (4) Diabetes mellitus, type 2: Plan: Sliding scale coverage adjusted on 11/23 improving control since adjusting (5) Hyperthyroidism: Plan: Stable. Continue methimazole therapy Admission and Anticipated Discharge Date Admission Date: November 18, 2023 Subjective pt feels improved toleating diet, did have bowel movement, pain is minor did well with PT/OT for home health Physical Exam Physical Exam: abd is soft and normal bowel sounds, no rebound awake and alert, cardiac is regular Results & Data Results & Data Vital Signs (Past 12 Hours) Vital Signs Temp Pulse Resp BP Pulse Ox O2 Del Method 11/28/23 07:16 97.5 F L 69 16 179/72 H 94 Room Air PG Care Time/CCT Total # of Minutes Spent Total Time Spent with Patient: Total time spent is greater than 50% in coordination of care (as documented) at patient's floor/unit and/or counseling patient: Coding Level of Care Code 78084 SUB INP/OBS CARE 2/35MIN Diagnoses SBO (small bowel obstruction) K56.609 Pacemaker Z95.0 Paroxysmal atrial fibrillation I48.0 Diabetes mellitus, type 2 E11.9 Hyperthyroidism E05.90
[2023-11-29 01:21] LABS: Hematocrit (blood only) 27.6 % (37.0-47.0); Hemoglobin 8.4 g/dl (12.0-16.0); Mean Corpuscular Hemoglobin 27.2 pg (25.0-34.0); Mean Corpuscular Hgb Conc 30.4 g/dL (32.0-36.0); Mean Corpuscular Volume 89.3 fL (80.0-100.0); Mean Platelet Volume 8.9 fL (9.4-12.4); Platelet Count 284 K/uL (130-400); RDW Coefficient of Variation 20.3 % (11.5-14.5); RDW Standard Deviation 65.7 fL (36.4-46.3); Red Blood Count 3.09 M/uL (4.20-5.40); White Blood Count 5.52 K/ul (4.8-10.8)
--- NOTE | 2023-11-29 01:29 | Communication Note ---
Date of Service: November 29, 2023 This patient is an 88-year-old female who underwent a right hand-assisted laparoscopic colon resection by Dr. Hanley on 11/23/2023. I was notified by the on-call resident the patient had a bloody bowel movement. I presented to the floor to evaluate the patient where she noted that she had not had a bowel movement since her surgery until this evening where she had a small bowel movement earlier this evening with some maroon-colored blood in it. She then had a second bowel movement which was large and soft with again some maroon-colored blood. She denies any lightheadedness or dizziness. She denies any chest pain or shortness of breath. She denies any abdominal pain. I discussed with the nurse attending to the patient and the patient has not had any episodes of hypotension and her current blood pressure is 168/78. There have been no episodes of tachycardia with heart rate in the 70s. She has also been afebrile. The nurse does note that the patient takes Eliquis and did receive her evening dose on 11/28/23. On physical exam the patient's abdomen is entirely benign. She has absolutely no abdominal pain with palpation. There is no abdominal distention. There is no rebound tenderness or guarding. Upon initial presentation the patient was resting comfortably in bed and did not appear to be in any distress. Stat laboratories were checked for patient's hemoglobin was 8.4 and her hematocrit was 27.6. Upon review of previous labs noted the patient's hemoglobin postoperatively has run anywhere from 8.1-9.3. She has not required any blood transfusions postoperatively. As patient is hemodynamically stable and asymptomatic I suspect her bloody bowel movement was merely the result of old blood in her colon from her surgery. We will keep the patient n.p.o. until evaluated by Dr. Hanley the morning of 11/29/2023. Will also hold any anticoagulants and antiplatelets for the present time. I will order repeat laboratories for the morning of 11/29/2023. I have instructed the nurse to notify us if there is any change in her clinical status. Addendum (6:30 AM) Patient revisited at bedside this morning. After my visit with patient last night she reportedly had numerous additional bloody bowel movements. Nursing staff notified the medical office clerk on-call and I was not made aware of this. The patient did have a CT scan of the abdomen pelvis ordered with results which are pending at this time. I visited with the patient at the bedside and she remains without hypotension or tachycardia. Her abdomen remains soft without tenderness to palpation. I have ordered a CBC for this morning. Will notify primary surgical team of these events. Addendum (7:30 am) Repeat h/H this am noted--8.8/29.8 (no significant drop from prior values) CT scan showed no drainable fluid collections. Case discussed with primary surgeon, Dr. Johns
[2023-11-29 01:30] LABS: Albumin Globulin Ratio 1.2 (0.9-2); Albumin Level 2.7 gm/dl (3.4-5.0); BUN Creatinine Ratio 10.1 (10-20); Bilirubin,Total 0.3 mg/dl (0.2-1.0); Calcium 7.9 mg/dl (8.6-10.3); Creatinine Clr Calc Pharmacy 42.2 ml/min; Est GFR (African American) 59.8 ml/min; Est GFR (Non-African American) 51.6 ml/min; Globulin 2.3 gm/dl (2.5-4.0); Potassium 3.5 mmol/L (3.5-5.1)
[2023-11-29] MEDS: OPTIRAY 320 100ml IV ONE (05:22)
--- NOTE | 2023-11-29 06:52 | CT Scan Report ---
CT abd pelvis IV con only CLINICAL HISTORY: Increasing Rectal Bleeding s/p surgery TECHNIQUE: Helical axial images of the abdomen and pelvis were obtained and displayed. Automated dose lowering techniques and/or adjustment according to patient size were utilized for this exam. This e xam was performed with intravenous contrast. CT DOSE: 1042.63 mGy.cm COMPARISON: Comparison is made to CT abdomen pelvis 11/20/2023 FINDINGS: Lower chest: Small right pleural effusion is seen with underlying atelectasis. Liver: Unremarkable. No focal lesions are seen. Gallbladder and biliary tree: Cholelithiasis is seen without evidence of cholecystitis. No intra- or extrahepatic biliary ductal dilation. Pancreas: Unremarkable, no focal lesions. Spleen: Unremarkable. Adrenals: Unremarkable. Kidneys and ureters: Multiple cysts are seen. There is a 14 mm hyperdense lesion in the left kidney i nferior pole (image 13) Bladder: Limited evaluation due to underdistention. Reproductive organs: Patient is status post hysterectomy. Bowel: Diverticulosis is seen without evidence of diverticulitis. Postsurgical changes are seen in th e right lower quadrant with adjacent mesenteric fat stranding. Previously noted focal ileal wall thic kening is unchanged. A hiatal hernia is seen. Lymph nodes Retroperitoneal: Unremarkable. Pelvic: Subcentimeter lymph nodes are noted. Mesenteric: Subcentimeter lymph nodes are noted. Peritoneum: Fat stranding is seen in the right lower quadrant. No evidence of drainable fluid collect ion. Trace ascites is seen. Vessels: Atherosclerotic calcifications are seen. IVC filter is seen. Abdominal wall: Subcutaneous emphysema is seen in the anterior pannus. Bones: Degenerative changes in the visualized spine. IMPRESSION: Expected postsurgical findings status post colonic resection. No evidence of drainable fluid collecti on or perforation. No no acute abnormality of the bowel. Peritoneal fat stranding and trace free flui d is likely physiologic. ACT 112: Negative or not required by law. Electronically signed by: Aguila Capone M.D. 11/29/2023 6:49 AM
[2023-11-29 07:28] LABS: Basophils # (auto) 0.03 K/uL (0.00-0.20); Basophils % (auto) 0.4 %; Eosinophils # (auto) 0.45 K/uL (0.00-0.50); Eosinophils % (auto) 5.5 %; Hematocrit (blood only) 29.8 % (37.0-47.0); Hemoglobin 8.8 g/dl (12.0-16.0); Immature Granulocytes # (auto) 0.12 K/uL (0.01-0.20); Immature Granulocytes % (auto) 1.5 %; Lymphocytes # (auto) 1.56 K/uL (1.20-3.40); Lymphocytes % (auto) 19.1 %; Mean Corpuscular Hemoglobin 27.1 pg (25.0-34.0); Mean Corpuscular Hgb Conc 29.5 g/dL (32.0-36.0); Mean Corpuscular Volume 91.7 fL (80.0-100.0); Monocytes % (auto) 9.8 %; Neutrophils # (auto) 5.22 K/uL (1.40-6.50); Neutrophils % (auto) 63.7 %; Platelet Count 388 K/uL (130-400); RDW Coefficient of Variation 20.6 % (11.5-14.5); Red Blood Count 3.25 M/uL (4.20-5.40); White Blood Count 8.18 K/ul (4.8-10.8)
[2023-11-29 07:52] LABS: Anisocytosis Present; Hypochromasia Present; Ovalocytes 1+; Polychromasia 1+; Tear Drop Cells 1+
[2023-11-29 08:11] LABS: BUN Creatinine Ratio 10.1 (10-20); Calcium 8.1 mg/dl (8.6-10.3); Creatinine Clr Calc Pharmacy 46.9 ml/min; Est GFR (Non-African American) 58.7 ml/min; Potassium 3.6 mmol/L (3.5-5.1)
--- NOTE | 2023-11-29 11:58 | Surgery Progress Note ---
Date of Service November 29, 2023 Assessment & Plan (1) Adenocarcinoma of colon: Plan: POD # 6 s/p laparoscopic hand assisted right hemicolectomy avss bloody bowel movements last evening hemodynamically stable. hgb 8.8 (similar to preop) repeat ct scan with postoperative changes Plan: Bloody bowel movements likely just postoperative bleeding at anastomosis with return of bowel function. Abdomen is soft, mildly tender at incision site and RLQ. Repeat hemglobin ordered for 1 pm okay for soft diet monitor for today and if hemoglobin stable and tolerates diet possible discharge home tomorrow Discussed with Dr. alston who agrees with above. Admission and Anticipated Discharge Date Admission Date: November 18, 2023 Subjective feeling good this morning, no abdominal pain, no n, v no pain last evening with the bloody bowel movements no bloody bowel movements this morning Physical Exam Constitutional: WD/WN, vitals as above cooperative and comfortable; no acute distress and not ill appearing Respiratory: normal respiratory effort, lungs clear to auscultation Gastrointestinal (Abdomen): Inspection/Auscultation: abdomen normal to inspection and + abdominal surgical incision (covered with dry dressings); abdomen not distended Percussion/Palpation: + abdomen tender (at incision sites and RLQ on deep palpation) and abdomen soft; no guarding and abdomen not rigid Skin: no rashes, warm and dry Psychiatric: A+Ox3, euthymic affect Results & Data Vital Signs (Past 12 Hours) Vital Signs Temp Pulse Pulse Resp BP Pulse Ox O2 Del Method 11/29/23 07:05 36.4 C L 74 16 152/76 H 94 Room Air 11/29/23 06:36 36.6 C 72 16 173/77 H 93 Room Air Laboratory Results 11/29/23 11/29/23 11/29/23 Range/Units 11:40 08:19 06:49 WBC 8.18 (4.8-10.8) K/ul RBC 3.25 L (4.20-5.40) M/uL Hgb 8.8 L (12.0-16.0) g/dl Hct 29.8 L (37.0-47.0) % MCV 91.7 (80.0-100.0) fL MCH 27.1 (25.0-34.0) pg MCHC 29.5 L (32.0-36.0) g/dL RDW Std Deviation 68.0 H (36.4-46.3) fL RDW Coeff of Cruz 20.6 H (11.5-14.5) % Plt Count 388 (130-400) K/uL MPV 9.0 L (9.4-12.4) fL Immature Gran % (Auto) 1.5 % Neut % (Auto) 63.7 % Lymph % (Auto) 19.1 % [place] % (Auto) 9.8 % Eos % (Auto) 5.5 % Baso % (Auto) 0.4 % Neut # (Auto) 5.22 (1.40-6.50) K/uL Lymph # (Auto) 1.56 (1.20-3.40) K/uL [place] # (Auto) 0.80 H (0.11-0.59) K/uL Eos # (Auto) 0.45 (0.00-0.50) K/uL Baso # (Auto) 0.03 (0.00-0.20) K/uL Immature Gran # (Auto) 0.12 (0.01-0.20) K/uL Polychromasia 1+ Hypochromasia Present Anisocytosis Present Tear Drop Cells 1+ Ovalocytes 1+ Sodium 136 (136-145) mmol/L Potassium 3.6 (3.5-5.1) mmol/L Chloride 99 (98-107) mmol/L Carbon Dioxide 31 (21-32) mmol/L Anion Gap 6 (3-11) BUN 9 (6-23) mg/dl Creatinine 0.89 (0.6-1.2) mg/dl Est Cr Clr Drug Dosing 46.9 ml/min Est GFR ( Amer) 68.0 ml/min Est GFR (Non-Af Amer) 58.7 ml/min BUN/Creatinine Ratio 10.1 (10-20) Glucose 219 H (70-99(Fasting)) mg/dl POC Glucose 185 H 230 H (70-99) mg/dl Calcium 8.1 L (8.6-10.3) mg/dl Total Bilirubin (0.2-1.0) mg/dl AST (13-39) U/L ALT (7-52) U/L Alkaline Phosphatase (34-104) U/L Total Protein (6.0-8.3) gm/dl Albumin (3.4-5.0) gm/dl Globulin (2.5-4.0) gm/dl Albumin/Globulin Ratio (0.9-2) 11/29/23 11/28/23 11/28/23 Range/Units 00:56 20:27 16:26 WBC 5.52 (4.8-10.8) K/ul RBC 3.09 L (4.20-5.40) M/uL Hgb 8.4 L (12.0-16.0) g/dl Hct 27.6 L (37.0-47.0) % MCV 89.3 (80.0-100.0) fL MCH 27.2 (25.0-34.0) pg MCHC 30.4 L (32.0-36.0) g/dL RDW Std Deviation 65.7 H (36.4-46.3) fL RDW Coeff of Cruz 20.3 H (11.5-14.5) % Plt Count 284 (130-400) K/uL MPV 8.9 L (9.4-12.4) fL Immature Gran % (Auto) % Neut % (Auto) % Lymph % (Auto) % [place] % (Auto) % Eos % (Auto) % Baso % (Auto) % Neut # (Auto) (1.40-6.50) K/uL Lymph # (Auto) (1.20-3.40) K/uL [place] # (Auto) (0.11-0.59) K/uL Eos # (Auto) (0.00-0.50) K/uL Baso # (Auto) (0.00-0.20) K/uL Immature Gran # (Auto) (0.01-0.20) K/uL Polychromasia Hypochromasia Anisocytosis Tear Drop Cells Ovalocytes Sodium 137 (136-145) mmol/L Potassium 3.5 (3.5-5.1) mmol/L Chloride 100 (98-107) mmol/L Carbon Dioxide 30 (21-32) mmol/L Anion Gap 7 (3-11) BUN 10 (6-23) mg/dl Creatinine 0.99 (0.6-1.2) mg/dl Est Cr Clr Drug Dosing 42.2 ml/min Est GFR ( Amer) 59.8 ml/min Est GFR (Non-Af Amer) 51.6 ml/min BUN/Creatinine Ratio 10.1 (10-20) Glucose 219 H (70-99(Fasting)) mg/dl POC Glucose 134 H 219 H (70-99) mg/dl Calcium 7.9 L (8.6-10.3) mg/dl Total Bilirubin 0.3 (0.2-1.0) mg/dl AST 7 L (13-39) U/L ALT 4 L (7-52) U/L Alkaline Phosphatase 64 (34-104) U/L Total Protein 5.0 L (6.0-8.3) gm/dl Albumin 2.7 L (3.4-5.0) gm/dl Globulin 2.3 L (2.5-4.0) gm/dl Albumin/Globulin Ratio 1.2 (0.9-2) Diagnostic Findings CT abd pelvis IV con only CLINICAL HISTORY: Increasing Rectal Bleeding s/p surgery TECHNIQUE: Helical axial images of the abdomen and pelvis were obtained and displayed. Automated dose lowering techniques and/or adjustment according to patient size were utilized for this exam. This exam was performed with intravenous contrast. CT DOSE: 1042.63 mGy.cm COMPARISON: Comparison is made to CT abdomen pelvis 11/20/2023 FINDINGS: Lower chest: Small right pleural effusion is seen with underlying atelectasis. Liver: Unremarkable. No focal lesions are seen. Gallbladder and biliary tree: Cholelithiasis is seen without evidence of cholecystitis. No intra- or extrahepatic biliary ductal dilation. Pancreas: Unremarkable, no focal lesions. Spleen: Unremarkable. Adrenals: Unremarkable. Kidneys and ureters: Multiple cysts are seen. There is a 14 mm hyperdense lesion in the left kidney inferior pole (image 13) Bladder: Limited evaluation due to underdistention. Reproductive organs: Patient is status post hysterectomy. Bowel: Diverticulosis is seen without evidence of diverticulitis. Postsurgical changes are seen in the right lower quadrant with adjacent mesenteric fat stranding. Previously noted focal ileal wall thickening is unchanged. A hiatal hernia is seen. Lymph nodes Retroperitoneal: Unremarkable. Pelvic: Subcentimeter lymph nodes are noted. Mesenteric: Subcentimeter lymph nodes are noted. Peritoneum: Fat stranding is seen in the right lower quadrant. No evidence of drainable fluid collection. Trace ascites is seen. Vessels: Atherosclerotic calcifications are seen. IVC filter is seen. Abdominal wall: Subcutaneous emphysema is seen in the anterior pannus. Bones: Degenerative changes in the visualized spine. IMPRESSION: Expected postsurgical findings status post colonic resection. No evidence of drainable fluid collection or perforation. No no acute abnormality of the bowel. Peritoneal fat stranding and trace free fluid is likely physiologic.
--- NOTE | 2023-11-29 18:00 | Hospitalist Progress Note ---
Date of Service November 29, 2023 Assessment & Plan (1) SBO (small bowel obstruction): Plan: From cecal mass confirmed on Colonoscopy 11/20, malignant appearing, for colonic resection 11/22, path shows adenocarcinoma on colonsocopy sample bleeding from anastamtoic eschar likely, stable, will check labs in am and is stable can be discharged tolerated advancing diet Malignant neoplasm of colon/cecum, will follow up with Dr [address] oncology (2) Pacemaker: Plan: Normal function. Continue po metoprolol plus CD diltiazem for htn control (3) Paroxysmal atrial fibrillation: Plan: Chronic and stable Eliquis restarted 11/25, calf pain prompted a LE doppler which was negative for DVT home metoprolol and converted to diltiazem cd (4) Diabetes mellitus, type 2: Plan: Sliding scale coverage adjusted on 11/23 improving control since adjusting (5) Hyperthyroidism: Plan: Stable. Continue methimazole therapy Admission and Anticipated Discharge Date Admission Date: November 18, 2023 Subjective feeling good this morning, no abdominal pain, no n, v no pain last evening with the bloody bowel movements mild pain in abdomen Physical Exam Physical Exam: abd is soft and normal bowel sounds, no rebound awake and alert, cardiac is regular Results & Data Results & Data Vital Signs (Past 12 Hours) Vital Signs Temp Pulse Pulse Resp BP Pulse Ox O2 Del Method 11/29/23 15:00 98.2 F 73 16 118/72 95 Room Air 11/29/23 07:05 97.5 F L 74 16 152/76 H 94 Room Air 11/29/23 06:36 97.9 F 72 16 173/77 H 93 Room Air Laboratory Results review cbc review chemistry PG Care Time/CCT Total # of Minutes Spent Total Time Spent with Patient: Total time spent is greater than 50% in coordination of care (as documented) at patient's floor/unit and/or counseling patient: Coding Level of Care Code 39781 SUB INP/OBS CARE 2/35MIN Diagnoses SBO (small bowel obstruction) K56.609 Pacemaker Z95.0 Paroxysmal atrial fibrillation I48.0 Diabetes mellitus, type 2 E11.9 Hyperthyroidism E05.90
[2023-11-30 06:24] LABS: Appearance Urine Clear (Clear); Bacteria Urine Automated Negative (Negative); Bilirubin Urine Negative (Negative); Blood Urine Trace (Negative); Color Urine Yellow; Epithelial Cell Urine Auto >30 /lpf (0-5); Glucose Urine UA Negative (Negative); Ketones Urine Trace (Negative); Leukocyte Esterase Urine 2+ (Negative); Nitrite Urine Negative (Negative); Protein Urine Negative (Negative); Specific Gravity Urine 1.029 (1.000-1.030); Urobilinogen Urine Negative (Negative); WBC Urine Automated >30 /hpf (0-5); pH Urine 5.5 (4.5-7.5)
--- NOTE | 2023-11-30 07:29 | Surgery Progress Note ---
Date of Service November 30, 2023 Assessment & Plan (1) Adenocarcinoma of colon: Plan: good progress discharge once medically ready instructions in chart appt my clinic 2 weeks Present on Admission?: Yes Admission and Anticipated Discharge Date Admission Date: November 18, 2023 Subjective pain controlled taking po well ambulating Review of Systems Constitutional: no fever and no chills Respiratory: no cough and no dyspnea Cardiovascular: no chest pain Gastrointestinal: + abdominal pain; no nausea and no vomit ing Genitourinary: no dysuria Physical Exam Constitutional: WD/WN, vitals as above Respiratory: normal respiratory effort, lungs clear to auscultation Cardiovascular: RRR, no murmur, no edema Gastrointestinal (Abdomen): Inspection/Auscultation: normal bowel sounds and + abdominal surgical incision; abdomen not distended Percussion/Palpation: + abdomen tender and abdomen soft; no guarding and abdomen not rigid Musculoskeletal: Head/Neck/Chest: normocephalic and head atraumatic Results & Data Vital Signs (Past 12 Hours) Vital Signs Temp Pulse Resp BP Pulse Ox O2 Del Method 11/29/23 21:22 36.6 C 72 14 145/74 H 94 Room Air
[2023-11-30 10:21] LABS: Hematocrit (blood only) 28.4 % (37.0-47.0); Hemoglobin 8.3 g/dl (12.0-16.0); Mean Corpuscular Hemoglobin 26.7 pg (25.0-34.0); Mean Corpuscular Hgb Conc 29.2 g/dL (32.0-36.0); Mean Corpuscular Volume 91.3 fL (80.0-100.0); Platelet Count 296 K/uL (130-400); RDW Coefficient of Variation 20.8 % (11.5-14.5); RDW Standard Deviation 69.1 fL (36.4-46.3); Red Blood Count 3.11 M/uL (4.20-5.40); White Blood Count 5.88 K/ul (4.8-10.8)
[2023-11-30 10:36] LABS: BUN Creatinine Ratio 13.2 (10-20); Calcium 8.3 mg/dl (8.6-10.3); Creatinine Clr Calc Pharmacy 45.9 ml/min; Est GFR (African American) 66.2 ml/min; Est GFR (Non-African American) 57.1 ml/min; Potassium 3.8 mmol/L (3.5-5.1)
--- NOTE | 2023-11-30 13:13 | Discharge Summary ---
Date of Service November 30, 2023 Admission HPI Per Admitting Provider The patient is an 88-year-old female with a past medical history including pacemaker, paroxysmal atrial fibrillation, aspiration pneumonitis, urinary tract infection, GI bleed, vulvar lesion, mixed urge and stress urinary incontinence, PE, DVT, diastolic heart failure, recurrent UTI. The patient reports that she had been doing well, until she ate sausage soup at the [employer] for dinner this evening, and shortly thereafter developed severe abdominal pain with intractable nausea and vomiting. Due to the symptoms, she presented to the ED for assessment. CT scan of abdomen and pelvis revealed a small bowel obstruction, with transition point in the lower pelvis, associated with a mural lesion suggestive of neoplasm, possibly consistent with lymphoma. Patient did have NG tube placed in the emergency department, with improvement in symptoms. She was then presented to the hospitalist service for admission Principal Diagnosis SBO Discharge Exam Patient is comfortable sitting upright in chair. abd is soft and normal bowel sounds, no rebound awake and alert, cardiac is regular Discharge Data Allergies Allergy/AdvReac Type Severity Reaction Status Date / Time levofloxacin AdvReac Intermediate Muscle Verified 11/18/23 01:36 pain (difficulty with walking) nitrofurantoin AdvReac Intermediate headache/GI Verified 11/18/23 01:36 [From Macrobid] upset/nausea Consultations 11/18/23 00:37 ED Decision to Admit Stat 11/18/23 02:36 Consult Oncology Routine 11/20/23 10:20 Consult Gastroenterology Routine 11/21/23 11:38 Consult General Surgery Routine Procedures Performed Operation Date: 11/23/23 07:15 Actual Procedures p Right Laparoscopic Hand-Assisted Colon Resection(Right) - Ulices Johns MD Ordered Studies 11/17/23 22:10 CT abd pelvis IV con only Stat 11/20/23 11:05 CT abd pelvis oral and IV con Urgent 11/26/23 04:54 US venous doppler LE BI Stat 11/29/23 05:01 CT abd pelvis IV con only Stat Hospital Course (1) SBO (small bowel obstruction): From cecal mass confirmed on Colonoscopy 11/20, malignant appearing, colonic resection on 11/22, 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 tolerated advancing diet Malignant neoplasm of colon/cecum, will follow up with Dr [address] oncology in the outpatient setting (2) Pacemaker: Normal function. Continue po metoprolol plus CD diltiazem for htn control (3) Paroxysmal atrial fibrillation: Chronic and stable Eliquis restarted 11/25, calf pain prompted a LE doppler which was negative for DVT home metoprolol and converted to diltiazem cd (4) Diabetes mellitus, type 2: Sliding scale coverage adjusted on 11/23 improving control since adjusting (5) Hyperthyroidism: Stable. Continue methimazole therapy Total Time Total Time Spent Total Time Spent (In Minutes): 32 Discharge Plan Discharge Items Patient Disposition: Home - Self-Care Reason For Visit: SBO Discharge Diagnosis: Small bowel obstruction Activity: Per Instructions section Lifting: No more than 10 pounds Bathing: No limitations Exercise/Sports: Wait until after follow-up appointment Driving/Machine Use: Resume 3 days after discharge Weightbearing: Full weightbearing Non-emergency contact: Surgeon Call non-emergency contact if: your pain is concerning for you and your temperature is above 101.5 Follow-up/Referrals: Avelina Douglas CRNP [Primary Care Provider] - Diet: Carb Consistent or DM2 and Low Fiber Ambulatory Orders: Hemoglobin and Hematocrit (Routine) Timeframe: [id number] Location: Determined by Patient Ordered By: Dae Kiser Attending Provider Instructions: appt dr [facility] 2 weeks Obtain hemoglobin andheamtocrit on monday A low fiber diet is typically recommended for individuals with certain medical conditions or as a temporary measure to relieve digestive symptoms. Here is some basic information about a low fiber diet: 1. Purpose: A low fiber diet limits the intake of foods high in dietary fiber to reduce the workload on the digestive system and ease symptoms like diarrhea, abdominal pain, or cramping. 2. Foods to limit or avoid: - Whole grains (e.g., whole wheat, whole oats, brown rice) - Legumes (e.g., lentils, beans, chickpeas) - Nuts and seeds - Raw fruits and vegetables (except for some cooked or peeled options) - High-fiber cereals or breads 3. Foods generally allowed: - Refined grains (e.g., white bread, white rice, refined cereals) - Cooked and peeled fruits and vegetables (e.g., applesauce, canned fruits, cooked carrots) - Lean meats, poultry, and fish - Dairy products (unless lactose intolerant) - Eggs 4. Cooking and preparation methods: - Choose peeled or cooked fruits and vegetables instead of raw ones. - Remove seeds and skin from fruits and vegetables. - Opt for refined grain products instead of whole grains. - Cook or soak legumes to reduce their fiber content. Addtl Ap Operator Provider Instructions: Post-Surgical ~Discharge Instructions Activity Recommendations: - lifting limitation: (10 pounds for 6 weeks), - exercise/sex/sports limit: (nonstrenuous for 6 weeks), - driving or machine use limit: (none for 1 week or until pain free and no longer taking narcotic pain medication), - Shower/bathe limit: (may shower) Diet: - Low fiber diet for 2 weeks SPECIAL CARE INSTRUCTIONS: - May shower, let water run over incisions and pat dry. Avoid submerging underwater for at least 2 weeks (no bathing, swimming, hot tubs) - Leave steri strips on for one week and then remove. - Call the surgeon's office with any questions or concerns - - (ex. temperature higher than 101 degrees F, excessive bleeding or pain). MEDICATIONS: - Resume previous medications unless instructed otherwise by your surgeon. FOLLOW UP VISIT: - If not already scheduled, please call the office to schedule a two week follow-up appointment. Office number Pending Studies at Discharge: No Stand-Alone Forms: My [facility] [place], Smoking Cessation Medications and DC Order Prescriptions: New diltiazem HCl 180 mg Capsule,Extended Release 24hr 180 mg PO QAM Qty: 30 0RF famotidine 20 mg Tablet 20 mg PO BID Qty: 60 0RF escitalopram oxalate 20 mg Tablet 20 mg PO QAM Qty: 30 0RF Continued Gemtesa 75 mg tablet 75 mg PO DAILY Qty: 90 0RF solifenacin [Vesicare] 5 mg tablet 5 mg PO DAILY metformin 500 mg Tablet 500 mg PO BID insulin glargine [Lantus U-100 Insulin] 100 unit/mL Solution 16 unit SUBCUT HS alprazolam [Xanax] 0.25 mg Tablet 0.25 mg PO HS atorvastatin [Lipitor] 20 mg Tablet 20 mg PO QAM acetaminophen 500 mg Tablet 1,000 mg PO Q6H PRN (Reason: Pain) Estrogen Cream 1 applic vaginal . EVERY OTHER NIGHT Rx Instructions: unknown dose, no fill history , due sat night losartan 25 mg Tablet 25 mg PO QAM Qty: 30 0RF metoprolol succinate 100 mg tablet extended release 24 hr 100 mg PO BID Qty: 60 0RF methimazole 5 mg Tablet 5 mg PO BID Held Eliquis 5 mg Tablet 5 mg PO BID Qty: 60 0RF Hold Instructions: Resume on 01/01/24. until cleared by surgeon and or PCP. Discharge Orders: Discharge Order (Routine); Ordered 11/30/23 Ordered By: Dae Becerril/Other Patient Handouts: Low-Fiber Diet, Hypoglycemia (Low Blood Sugar), Managing Type 2 Diabetes, Having Open Colon Surgery Admission Data Admit Date/Time: 11/18/23 01:49 Attending Provider: Dae Macdonald Admit Provider: Grant Giordano Primary Care Provider: Avelina Douglas Other Providers: Grant Giordano; Marko Calloway; January Loyd; Otto Abrams; Kelin Issa; Brinda Jo; Yesy Morrow; Tiarra Sanchez; Elke Nieto; Jigar Robles; Jose Beaver; Nusrat Mayers; Yelitza Peña; Poonam Pederson; Nanda Colin; Lesley Raya; Maria Antonia Huerta; Milady Robles; Ariana Oliveira; Abbe Anne; Dontrell Velez; Katty Allan; Albino Arnett Jr; Bereket Mata Other Interventions: Discharge Summary Assessment (RN) Last Done: 11/30/23 13:11 Coding Level of Care Code 55587 INP/OBS DISCH >30 MIN Diagnoses SBO (small bowel obstruction) K56.609 Pacemaker Z95.0 Paroxysmal atrial fibrillation I48.0 Diabetes mellitus, type 2 E11.9 Hyperthyroidism E05.90
== END 2023-11-30 14:48 | disposition home health service (06) | DRG 330 ==
LOC: ED 21:40 → SUATTDRO 11-18 01:49 → 2S 11-18 01:49 → 3N 11-26 20:55

== ENCOUNTER 2024-03-28 16:11 | Observation (INO) ==
--- NOTE | 2024-03-28 16:23 | Emergency Department Note ---
Impression & Plan Closed lumbar vertebral fracture ADMIT ED Provider Note HPI: History obtained from patient. The patient is a 88-year-old female atrial fibrillation, currently on Eliquis, who presents the emergency department with a chief complaint of a mechanical fall that occurred shortly prior to arrival. Patient states that she was bending over to pick something up in her apartment and she lost her balance and fell onto her buttocks. Patient states she has had some pain in her right lower back since her fall. Patient denies hitting her head. Patient states she was able to stand up under her own power and walk into the kitchen to call for assistance. Patient states she lives at an assisted living facility at [facility]. On arrival here to the ER the patient is hemodynamically stable, she does not have any focal deficits, she is able to flex at the hips bilaterally and otherwise appears to be in no acute distress. ROS: - Per HPI Differential Diagnosis: Intracranial injury to include subdural hematoma, epidural hematoma, pelvic fracture, hip fracture, lumbar spine fracture, amongst other potential pathologies. *Outpatient medications and allergy history reviewed. PE: General: Alert HEENT: Normocephalic, trachea midline Eyes: Extraocular eye movement is intact, no scleral erythema Pulmonary: Clear to auscultation bilaterally, no wheezing Cardio: Regular rate and rhythm GI: Abdomen is soft to palpation : No suprapubic tenderness MSK: No evidence of trauma or malformation of the extremities, no edema, no midline tenderness with palpation of the thoracic or lumbar spine Skin: No evidence of rash Neuro: Alert, no focal deficits Psychiatric: Cooperative INDEPENDENT INTERPRETATIONS: radio dispatcher: (As interpreted by myself): - An order was placed for continuous cardiac monitoring - Patient was noted to be in sinus rhythm with a rate of 65 Medical Decision Making: CT imaging of the head as well as CT imaging of the lumbar spine and pelvis were obtained. CT imaging of the head shows no evidence of any acute intracranial process. CT imaging of the lumbar spine shows evidence of a superior endplate fracture at L2 without any retropulsion. There is no evidence of any fracture within the pelvis. Patient initially stated that she felt well for discharge, she was ambulated here in the ED and given Tylenol for pain. She ambulated with a walker with some discomfort but was able to ambulate. When the patient attempted to get her close on she stated she was having severe pain with twisting and bending and did not feel that she was stable for discharge to go back to her independent living situation. Given this, I did discuss the patient's case with the on-call hospitalist, Dr. Schaffer, lab work was ordered. There is hyperglycemia in isolation without any other critical findings. Patient was placed for admission in stable condition for PT/OT consultation for nonoperative lumbar spine fracture. Consultants/Discussions held with other healthcare providers: -Hospitalist, Dr. Schaffer Disposition discussion held by myself with: -Patient and patient's granddaughter at the bedside Diagnosis: 1. Mechanical fall, acute 2. L2 superior endplate fracture, acute 3. 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, last check 09/2019 Abnormal EKG Paroxysmal atrial fibrillation Aspiration pneumonitis Acute respiratory failure with hypoxia Hypertensive urgency Pulmonary edema Acute bronchospasm UTI (urinary tract infection) Hypomagnesemia Anemia due to GI blood loss GI bleed (Acute) Vulvar lesion Mixed incontinence urge and stress Incontinence Yeast infection of the skin Urinary hesitancy Hypertension Diabetes mellitus, type 2 Hypothyroidism Dyslipidemia Atrial fibrillation Deep venous thrombosis Pulmonary embolism Osteoporosis Pulmonary nodules/lesions, multiple DVT (deep venous thrombosis) Pulmonary embolism Anemia Hematoma of right iliopsoas muscle Hematoma Status post hysterectomy "with BSO; fibroid" Status post tonsillectomy Status post cardiac pacemaker procedure Status post catheter ablation of atrial fibrillation Hyperthyroidism Rapid atrial fibrillation CHF (congestive heart failure) Acute pancreatitis Hematuria Diastolic congestive heart failure History of DVT (deep vein thrombosis) History of pulmonary embolus (PE) Anxiety Depression Acute pancreatitis Hematuria, gross Renal calculus, bilateral Recurrent UTI (urinary tract infection) Essential tremor Facial, hands Medical History (Updated 03/28/24 @ 21:03 by Rochelle Schaffer DO) Anemia Blood transfusions several years ago (r/t DVTs/acute blood loss) Presence of IVC filter Chronic back pain Osteoarthritis Kidney stones Pancreatitis Remote hx Diabetes mellitus, type 2 IDDM Depression Anxiety BCC (basal cell carcinoma) Hyperlipidemia DVT (deep venous thrombosis) RLE/LLE 2017- developed 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 Holliday Hypertension Surgical History (Updated 03/28/24 @ 21:03 by Rochelle Schaffer DO) Status post right knee replacement History of esophagogastroduodenoscopy (EGD) History of cystoscopy Cystoscopy, b/l ureteronephroscopy, laser lithotripsy (11/07/19): LMA#4 iGel, atraumatic insertion at [facility] History of cardiac cath 2011 > no stents PONV (postoperative nausea and vomiting) History of total knee replacement Right History of colonoscopy History of appendectomy Status post Mohs surgery S/P epidural steroid injection History of cardiac radiofrequency ablation S/P cardiac pacemaker procedure Hx of tonsillectomy History of hysterectomy MARC and BSO Family History Brother Family history of diabetes mellitus Brother Family history of diabetes mellitus Sister Family history of diabetes mellitus Grandmother (Paternal) Family history of diabetes mellitus Grandmother (Maternal) Breast cancer Denies family history of Ovarian cancer Colorectal cancer Social History Smoking Status: Never smoker Second Hand Exposure: No; Do You Dip or Chew Tobacco: No; Hx Alcohol Use: No Hx Substance Use: No Preferred Language: Latvian Communication Ability: Effective Visual Impairment: No Limitations Lumber Loader Required: No Beliefs That Will Affect Care: Yazdanism Yazdanism Beliefs: rastafarian marital status: / Current Living Situation: Alone Current Living Situation Comment: at [facility] current occupational status: retired Feels Safe at Home: Yes Assistive Devices: Walker Allergies Allergies Allergy/AdvReac Type Severity Reaction Status Date / Time levofloxacin AdvReac Intermediate Muscle Verified 02/01/24 10:49 pain (difficulty with walking) nitrofurantoin AdvReac Intermediate headache/GI Verified 02/01/24 10:49 [From Macrobid] upset/nausea Home Meds Home Medications Medication Instructions Recorded Confirmed alprazolam 0.25 mg tablet (Xanax) 0.25 mg PO HS Anxiety 09/02/18 02/01/24 insulin glargine 100 unit/mL 16 unit subcut HS 09/02/18 02/01/24 subcutaneous solution (Lantus U-100 Insulin) metformin 500 mg tablet 500 mg PO BID 09/02/18 02/01/24 atorvastatin 20 mg tablet (Lipitor) 20 mg PO QAM 09/23/19 02/01/24 acetaminophen 500 mg tablet 1,000 mg PO Q6H PRN Pain 06/03/21 02/01/24 Estrogen Cream 1 applic vaginal . EVERY OTHER 06/09/23 02/01/24 NIGHT solifenacin 5 mg tablet (Vesicare) 5 mg PO DAILY 07/25/23 02/01/24 methimazole 5 mg tablet 5 mg PO BID 11/18/23 02/01/24 Previous Rx's Medication Instructions Recorded vibegron 75 mg tablet (Gemtesa) 75 mg PO DAILY #90 tabs 03/01/23 apixaban 5 mg tablet (Eliquis) 5 mg PO BID #60 tabs 06/20/23 losartan 25 mg tablet 25 mg PO QAM #30 tabs 06/20/23 metoprolol succinate 100 mg 100 mg PO BID #60 tabs 06/20/23 tablet,extended release 24 hr diltiazem HCl 180 mg 180 mg PO QAM #30 caps 11/30/23 capsule,extended release 24 hr escitalopram oxalate 20 mg tablet 20 mg PO QAM #30 tabs 11/30/23 famotidine 20 mg tablet 20 mg PO BID #60 tabs 11/30/23 Results & Data (ED) Vital Signs Vital Signs - 24 hr 03/28/24 16:12 03/28/24 16:18 03/28/24 16:38 Temperature 36.7 C Temperature Source Temporal Artery Scan Pulse Rate 79 70 Pulse Rate [Finger] 78 Pulse Rhythm Regular Pulse Rhythm [Finger] Regular Pulse Strength Normal Pulse Strength [Finger] Normal Respiratory Rate 18 18 Respiratory Effort / Characteristics Non-Labored Spontaneous Non-Labored Spontaneous Respiratory Depth Normal Normal Respiratory Pattern Blood Pressure 156/91 H Blood Pressure [Right Arm] 156/91 H Blood Pressure Mean 112 Blood Pressure Mean [Right Arm] 112 Blood Pressure Position Sitting Blood Pressure Position [Right Arm] Sitting Pulse Oximetry 94 94 Oxygen Delivery Method Room Air Room Air Sepsis Recent Fever Within 48 Hours No Sepsis New/Unexplained Change in Mental Status N/A Sepsis Action Taken by Nursing No Action Required 03/28/24 19:00 Temperature 37.1 C Temperature Source Oral Pulse Rate Pulse Rate [Finger] 70 Pulse Rhythm Pulse Rhythm [Finger] Pulse Strength Pulse Strength [Finger] Respiratory Rate 17 Respiratory Effort / Characteristics Non-Labored Respiratory Depth Normal Respiratory Pattern Regular Blood Pressure Blood Pressure [Right Arm] 173/86 H Blood Pressure Mean Blood Pressure Mean [Right Arm] 115 Blood Pressure Position Blood Pressure Position [Right Arm] Semi-fowlers Pulse Oximetry 96 Oxygen Delivery Method Room Air Sepsis Recent Fever Within 48 Hours Sepsis New/Unexplained Change in Mental Status Sepsis Action Taken by Nursing Laboratory Data 03/28/24 20:36 03/28/24 20:36 Lab Results 03/28/24 Range/Units 20:36 WBC 9.19 (4.8-10.8) K/ul RBC 4.40 (4.20-5.40) M/uL Hgb 12.3 (12.0-16.0) g/dl Hct 38.5 (37.0-47.0) % MCV 87.5 (80.0-100.0) fL MCH 28.0 (25.0-34.0) pg MCHC 31.9 L (32.0-36.0) g/dL RDW Std Deviation 50.1 H (36.4-46.3) fL RDW Coeff of Cruz 15.8 H (11.5-14.5) % Plt Count 220 (130-400) K/uL MPV 9.1 L (9.4-12.4) fL Immature Gran % (Auto) 0.8 % Neut % (Auto) 75.4 % Lymph % (Auto) 15.1 % Holt % (Auto) 7.7 % Eos % (Auto) 0.9 % Baso % (Auto) 0.1 % Neut # (Auto) 6.93 H (1.40-6.50) K/uL Lymph # (Auto) 1.39 (1.20-3.40) K/uL Holt # (Auto) 0.71 H (0.11-0.59) K/uL Eos # (Auto) 0.08 (0.00-0.50) K/uL Baso # (Auto) 0.01 (0.00-0.20) K/uL Immature Gran # (Auto) 0.07 (0.01-0.20) K/uL Sodium 137 (136-145) mmol/L Potassium 4.5 (3.5-5.1) mmol/L Chloride 102 (98-107) mmol/L Carbon Dioxide 30 (21-32) mmol/L Anion Gap 5 (3-11) BUN 19 (6-23) mg/dl Creatinine 0.95 (0.6-1.2) mg/dl Est Cr Clr Drug Dosing 43.2 ml/min Est GFR ( Amer) 62.9 ml/min Est GFR (Non-Af Amer) 54.2 ml/min BUN/Creatinine Ratio 20.0 (10-20) Glucose 246 H (70-99(Fasting)) mg/dl Calcium 9.7 (8.6-10.3) mg/dl Total Bilirubin 0.3 (0.2-1.0) mg/dl AST 12 L (13-39) U/L ALT 12 (7-52) U/L Alkaline Phosphatase 98 (34-104) U/L Total Protein 6.8 (6.0-8.3) gm/dl Albumin 3.9 (3.4-5.0) gm/dl Globulin 2.9 (2.5-4.0) gm/dl Albumin/Globulin Ratio 1.3 (0.9-2) Administered Medications Discontinued Medications Acetaminophen (Acetaminophen 325 Mg Tab) 650 mg PO NOW STA Stop: 03/28/24 16:22 Last Admin: 03/28/24 16:41 Dose: 650 mg Documented By: BRYSON Imaging Data Radiologist's Impression: Lumbar Spine CT 03/28/24 16:20 CT lumbar spine wo con CLINICAL HISTORY: R lower back pain s/p fall TECHNIQUE: Multidetector row helical CT of the lumbar spine was performed without administration of intravenous contrast. Coronal and sagittal reformations were obtained. Automated dose lowering techniques and/or adjustment according to patient size were utilized for this exam. CT DOSE: 2168.98 mGy.cm Comparison: None available at the time of this dictation. FINDINGS: For counting purposes, the last complete intervertebral disc space is considered L5-S1. There is an acute fracture of the superior endplate of L2 without retropulsion. Degenerative changes are noted in the visualized spine. Vertebral body alignment is within normal limits. IVC filter is seen. IMPRESSION: Acute fracture of the superior endplate of L2 without retropulsion. ACT 112: Negative or not required by law. Electronically signed by: gAuila Capone M.D. 03/28/2024 5:[address] 03/28/24 16:20 CT pelvis wo con CLINICAL HISTORY: R lower back pain s/p fall TECHNIQUE: Helical axial images of the pelvis were obtained and displayed at 5 and 1 mm intervals. Automated dose lowering techniques and/or adjustment according to patient size were utilized for this exam. This exam was performed without intravenous contrast. COMPARISON: Comparison is made to CT abdomen pelvis 11/29/2023 FINDINGS: Bladder: Unremarkable. Reproductive organs: Unremarkable. Bowel: Postsurgical changes are seen in the cecum. Diverticulosis is seen without diverticulitis. Lymph nodes Pelvic: Unremarkable. Mesenteric: Unremarkable. Peritoneum: Normal Vessels: Atherosclerotic calcifications are seen. Abdominal wall: Unremarkable. Bones: Degenerative changes are seen in the bilateral hips and pelvis. No acute fracture. IMPRESSION: No acute abnormalities and in particular no evidence of acute fracture. ACT 112: Negative or not required by law. Electronically signed by: Aguila Capone M.D. 03/28/2024 5:[address] 03/28/24 16:21 CT head/brain wo con CLINICAL HISTORY: 88 years-old Female with fall, on OAC. Acute head trauma status post fall TECHNIQUE: Multiple axial CT images of the head were obtained without contrast. A dose lowering technique was utilized adhering to the principles of ALARA. COMPARISON: 12/23/2017 FINDINGS: No acute intracranial hemorrhage, midline shift, intracranial mass, hydrocephalus, territorial ischemia or abnormal extra-axial collection. Involutional changes with chronic microvascular ischemic disease. Cerebrovascular calcifications. The calvarium is intact. The paranasal sinuses, mastoid air cells, and middle ear cavities are clear. IMPRESSION: No acute intracranial abnormality or calvarial fracture. ACT 112: Negative or not required by law. The above report was generated using voice recognition software. It may contain grammatical, syntax or spelling errors. Electronically signed by: Roque Duarte M.D. 03/28/2024 5:05 PM Discharge Plan Visit Data Chief Complaint: Fall ED Provider: Darius Horta Discharge Problem: Closed lumbar vertebral fracture Patient Disposition: Home - Self-Care Condition: Good Discharge Instructions Activity Restrictions/Additional Instructions: Please follow-up with your primary care doctor in the next 2 to 3 days for reassessment and further management. Please follow-up with orthopedic/spinal surgery in the office to review imaging and discuss course of healing for your fracture. Please return to the ER if you have any new or worsening symptoms. Please utilize Tylenol as needed for back pain. Please follow dosage instructions as indicated on the packaging. Forms Stand Alone Forms: My [facility], Important Visit Information Prescriptions Prescriptions: No Action Gemtesa 75 mg tablet 75 mg PO DAILY Qty: 90 0RF solifenacin [Vesicare] 5 mg tablet 5 mg PO DAILY metformin 500 mg Tablet 500 mg PO BID insulin glargine [Lantus U-100 Insulin] 100 unit/mL Solution 16 unit SUBCUT HS alprazolam [Xanax] 0.25 mg Tablet 0.25 mg PO HS atorvastatin [Lipitor] 20 mg Tablet 20 mg PO QAM acetaminophen 500 mg Tablet 1,000 mg PO Q6H PRN (Reason: Pain) Estrogen Cream 1 applic vaginal . EVERY OTHER NIGHT Rx Instructions: unknown dose, no fill history , due sat night losartan 25 mg Tablet 25 mg PO QAM Qty: 30 0RF metoprolol succinate 100 mg tablet extended release 24 hr 100 mg PO BID Qty: 60 0RF Eliquis 5 mg Tablet 5 mg PO BID Qty: 60 0RF Hold Instructions: Resume on 01/01/24. until cleared by surgeon and or PCP. methimazole 5 mg Tablet 5 mg PO BID diltiazem HCl 180 mg Capsule,Extended Release 24hr 180 mg PO QAM Qty: 30 0RF famotidine 20 mg Tablet 20 mg PO BID Qty: 60 0RF escitalopram oxalate 20 mg Tablet 20 mg PO QAM Qty: 30 0RF Referrals Referrals: Avelina Douglas CRNP [Primary Care Provider] - Ryan Little MD [Surgeon] - Discharge Problem: Closed lumbar vertebral fracture Qualifiers: Encounter type: initial encounter Lumbar vertebra fracture level: L2 Fracture morphology: unspecified fracture morphology Qualified Code(s): S32.029A - Unspecified fracture of second lumbar vertebra, initial encounter for closed fracture
[2024-03-28] MEDS: ACETAMINOPHEN 325 MG TAB PO STA (16:41)
--- NOTE | 2024-03-28 17:06 | CT Scan Report ---
CT head/brain wo con CLINICAL HISTORY: 88 years-old Female with fall, on OAC. Acute head trauma status post fall TECHNIQUE: Multiple axial CT images of the head were obtained without contrast. A dose lowering tech nique was utilized adhering to the principles of ALARA. COMPARISON: 12/23/2017 FINDINGS: No acute intracranial hemorrhage, midline shift, intracranial mass, hydrocephalus, territorial ischem ia or abnormal extra-axial collection. Involutional changes with chronic microvascular ischemic disea se. Cerebrovascular calcifications. The calvarium is intact. The paranasal sinuses, mastoid air cells, and middle ear cavities are clear . IMPRESSION: No acute intracranial abnormality or calvarial fracture. ACT 112: Negative or not required by law. The above report was generated using voice recognition software. It may contain grammatical, syntax o r spelling errors. Electronically signed by: Roque Duarte M.D. 03/28/2024 5:05 PM
--- NOTE | 2024-03-28 17:23 | CT Scan Report ---
CT lumbar spine wo con CLINICAL HISTORY: R lower back pain s/p fall TECHNIQUE: Multidetector row helical CT of the lumbar spine was performed without administration of i ntravenous contrast. Coronal and sagittal reformations were obtained. Automated dose lowering techniq ues and/or adjustment according to patient size were utilized for this exam. CT DOSE: 2168.98 mGy.cm Comparison: None available at the time of this dictation. FINDINGS: For counting purposes, the last complete intervertebral disc space is considered L5-S1. There is an acute fracture of the superior endplate of L2 without retropulsion. Degenerative changes are noted in the visualized spine. Vertebral body alignment is within normal limits. IVC filter is se en. IMPRESSION: Acute fracture of the superior endplate of L2 without retropulsion. ACT 112: Negative or not required by law. Electronically signed by: Aguila Caopne M.D. 03/28/2024 5:21 PM
--- NOTE | 2024-03-28 17:31 | CT Scan Report ---
CT pelvis wo con CLINICAL HISTORY: R lower back pain s/p fall TECHNIQUE: Helical axial images of the pelvis were obtained and displayed at 5 and 1 mm intervals. Au tomated dose lowering techniques and/or adjustment according to patient size were utilized for this e xam. This exam was performed without intravenous contrast. COMPARISON: Comparison is made to CT abdomen pelvis 11/29/2023 FINDINGS: Bladder: Unremarkable. Reproductive organs: Unremarkable. Bowel: Postsurgical changes are seen in the cecum. Diverticulosis is seen without diverticulitis. Lymph nodes Pelvic: Unremarkable. Mesenteric: Unremarkable. Peritoneum: Normal Vessels: Atherosclerotic calcifications are seen. Abdominal wall: Unremarkable. Bones: Degenerative changes are seen in the bilateral hips and pelvis. No acute fracture. IMPRESSION: No acute abnormalities and in particular no evidence of acute fracture. ACT 112: Negative or not required by law. Electronically signed by: Aguila Capone M.D. 03/28/2024 5:29 PM
--- NOTE | 2024-03-28 20:28 | History & Physical Report ---
Date of Service March 28, 2024 Assessment & Plan (1) Closed lumbar vertebral fracture: Plan: 88yo female s/p ground level fall this evening resulting in acute L2 superior endplate fracture without retropulsion. Patient with significant pain while trying to dress herself. Currently lives independently at [facility]. -Observation to medical -Pain control with Tylenol 1gm PO TID scheduled and Oxycodone 5mg po q 6 hours as needed -Ice to back -Colace and Miralax as needed -PT/OT evaluations appreciated - patient may temporarily need higher level of care at [facility] CHRONIC MEDICAL CONDITIONS: Paroxysmal Atrial Fibrillation: Chronic. Stable. Patient anticoagulated on Apixaban. -Continue Metoprolol 100mg po BID -Continue Diltiazem 180mg po qAM -Continue Apixaban 2.5mg po BID Diabetes: Chronic. Overall well controlled - last HgbA1C on 11/18/23=5.7. Patient is compliant with home Metformin as well as Lantus 16u qHS -Hold Metformin -Lantus 14u qHS -ISS -Goal blood sugar 110 - 140 Hyperlipidemia: Chronic. Stable. -Continue Atorvastatin 20mg po qAM Depression/Anxiety: Chronic. Stable -Continue Escitalopram 20mg po qAM -Alprazolam PRN qHS Hypertension: Chronic. -Continue Losartan -Continue Metoprolol Hyperthyroidism: Chronic -Continue Methimazole 5mg po BID 4 days weekly (Monday, Monday, Monday and Monday) F/E/N - Saline lock. Electrolytes WNL. CC diet as tolerated Ppx - On Apixaban. On Famotidine Code - DNR/DNI per discussion with patient Dispo - Observation to medical History of Present Illness Chief Complaint: fall Primary Care Provider: EMILY Blount Anastasiia Singer is a pleasant 88yo female with history of DM, HLP, HTN, AF on Eliquis anticoagulation presenting from home following a ground level fall resulting in an acute fracture of the superior endplate of L2. Patient has been in her usual state of health with no complaints. This afternoon around 14:30 she was getting a container out of her closet. Her right knee gave out and she fell backwards onto her bathroom floor. She sustained a mild injury/skin tear to her left elbow. She had immediate pain in her back. She laid on the ground for a few moments before staff found her and helped her up. Patient denies chest pain, SOB, dizziness, palpitations, trauma to the head or neck. No additional complaints- specifically no fever, chills, abdominal pain, nausea, vomiting, diarrhea or urinary complaints. In the ER patient has been afebrile, hypertensive otherwise HD stable. She was given a Tylenol for pain with mild improvement. She was able to get up and ambulate but was unable to dress herself due to the pain. Patient presently lives independently at [facility]. She ambulates with a walker at home. In regards to her right knee giving out - she has a remote history of RLE VTE and was on Lovenox anticoagulation which unfortunately resulted in a large hematoma. 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 Her RLE does give out on her on occasion. ER Course: Tylenol 650mg Ordered - not yet given: PM Apixaban 2.5mg PM Metoprolol 100mg PM Lantus 14u Oxycodone 5mg PO x 1 Allergies Allergy/AdvReac Type Severity Reaction Status Date / Time levofloxacin AdvReac Intermediate Muscle Verified 03/28/24 22:23 pain (difficulty with walking) nitrofurantoin AdvReac Intermediate headache/GI Verified 03/28/24 22:23 [From Macrobid] upset/nausea Home Medications Medication Instructions Recorded Confirmed Type alprazolam 0.25 mg tablet (Xanax) 0.25 mg PO HS Anxiety 09/02/18 03/28/24 History insulin glargine 100 unit/mL 16 unit subcut HS 09/02/18 03/28/24 History subcutaneous solution (Lantus U-100 Insulin) metformin 500 mg tablet 500 mg PO BID 09/02/18 03/28/24 History acetaminophen 500 mg tablet 1,000 mg PO Q6H PRN Pain 06/03/21 03/28/24 History vibegron 75 mg tablet (Gemtesa) 75 mg PO DAILY #90 tabs 03/01/23 03/28/24 Rx Estrogen Cream 1 applic vaginal DIRECTED PRN 06/09/23 03/28/24 History .dryness, pain losartan 25 mg tablet 25 mg PO QAM #30 tabs 06/20/23 03/28/24 Rx metoprolol succinate 100 mg 100 mg PO BID #60 tabs 06/20/23 03/28/24 Rx tablet,extended release 24 hr solifenacin 5 mg tablet (Vesicare) 5 mg PO DAILY 07/25/23 03/28/24 History methimazole 5 mg tablet 5 mg PO .BID 4DAYS A WEEK 11/18/23 03/28/24 History diltiazem HCl 180 mg 180 mg PO QAM #30 caps 11/30/23 03/28/24 Rx capsule,extended release 24 hr escitalopram oxalate 20 mg tablet 20 mg PO QAM #30 tabs 11/30/23 03/28/24 Rx famotidine 20 mg tablet 20 mg PO BID #60 tabs 11/30/23 03/28/24 Rx apixaban 5 mg tablet (Eliquis) 2.5 mg PO BID 03/28/24 03/28/24 History Past Med/Surg History Problem List (Updated 03/28/24 @ 21:03 by Rochelle Schaffer DO) Closed lumbar vertebral fracture (Acute) Adenocarcinoma of colon Abnormal CT scan, small bowel Nausea & vomiting (Acute) Abdominal pain (Acute) Hyperthyroidism on Methimazole/managed by PCP Colonic mass SBO (small bowel obstruction) (Acute) Pacemaker Implanted 2011, 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, last check 09/2019 Abnormal EKG Paroxysmal atrial fibrillation Aspiration pneumonitis Acute respiratory failure with hypoxia Hypertensive urgency Pulmonary edema Acute bronchospasm UTI (urinary tract infection) Hypomagnesemia Anemia due to GI blood loss GI bleed (Acute) Vulvar lesion Mixed incontinence urge and stress Incontinence Yeast infection of the skin Urinary hesitancy Hypertension Diabetes mellitus, type 2 Hypothyroidism Dyslipidemia Atrial fibrillation Deep venous thrombosis Pulmonary embolism Osteoporosis Pulmonary nodules/lesions, multiple DVT (deep venous thrombosis) Pulmonary embolism Anemia Hematoma of right iliopsoas muscle Hematoma Status post hysterectomy "with BSO; fibroid" Status post tonsillectomy Status post cardiac pacemaker procedure Status post catheter ablation of atrial fibrillation Hyperthyroidism Rapid atrial fibrillation CHF (congestive heart failure) Acute pancreatitis Hematuria Diastolic congestive heart failure History of DVT (deep vein thrombosis) History of pulmonary embolus (PE) Anxiety Depression Acute pancreatitis Hematuria, gross Renal calculus, bilateral Recurrent UTI (urinary tract infection) Essential tremor Facial, hands Medical History (Updated 03/28/24 @ 21:03 by Rochelle Schaffer DO) Anemia Blood transfusions several years ago (r/t DVTs/acute blood loss) Presence of IVC filter Chronic back pain Osteoarthritis Kidney stones Pancreatitis Remote hx Diabetes mellitus, type 2 IDDM Depression Anxiety BCC (basal cell carcinoma) Hyperlipidemia DVT (deep venous thrombosis) RLE/LLE 2017- developed 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 Holliday Hypertension Surgical History (Updated 03/28/24 @ 21:03 by Rochelle Schaffer DO) Status post right knee replacement History of esophagogastroduodenoscopy (EGD) History of cystoscopy Cystoscopy, b/l ureteronephroscopy, laser lithotripsy (11/07/19): LMA#4 iGel, atraumatic insertion at [facility] History of cardiac cath 2011 > no stents PONV (postoperative nausea and vomiting) History of total knee replacement Right History of colonoscopy History of appendectomy Status post Mohs surgery S/P epidural steroid injection History of cardiac radiofrequency ablation S/P cardiac pacemaker procedure Hx of tonsillectomy History of hysterectomy MARC and BSO Family History Brother Family history of diabetes mellitus Brother Family history of diabetes mellitus Sister Family history of diabetes mellitus Grandmother (Paternal) Family history of diabetes mellitus Grandmother (Maternal) Breast cancer Denies family history of Ovarian cancer Colorectal cancer Social History Smoking Status: Never smoker Second Hand Exposure: No; Do You Dip or Chew Tobacco: No; Hx Alcohol Use: No Hx Substance Use: No Preferred Language: Bruneian Communication Ability: Effective Visual Impairment: No Limitations Allocations Clerk Required: No Beliefs That Will Affect Care: Mu-Ism Mu-Ism Beliefs: caodaism marital status: / Current Living Situation: Alone Current Living Situation Comment: at [facility] in [place] current occupational status: retired Feels Safe at Home: Yes Assistive Devices: Walker Review of Systems Review of Systems: All systems reviewed & are unremarkable except as noted in HPI & below Physical Exam Physical Exam: General: patient resting comfortably, NAD, non-toxic in appearance, AA&O x 4, resting tremor noted of face and hands Skin: warm, dry, skin tear to left elbow with dressing in place HEENT: NC/AT, PERRL, EOMI, anicteric sclera, conjunctiva without injection, external ear normal to inspection and nontender, nares patent, moist mucus membranes, dentition intact, no oropharyngeal lesions, neck supple, trachea mid line, no LAD, no thyromegaly, no JVD Heart: +S1/S2, regular, no m/r/g Lungs: equal air entry bilaterally, no rales/rhonchi/wheezes Abd: +BS, soft, NT/ND, no masses/organomegaly/ascites Ext: warm, 2+ pulses in UE/LE bilaterally, no clubbing/cyanosis or edema Neuro: nonfocal, patient AA&O x 4, speech intact, no facial droop, moving all extremities on command with equal strength 5/5 Results & Data Results & Data Vital Signs (Past 12 Hours) Vital Signs Temp Pulse Pulse Resp BP BP Pulse Ox 03/28/24 19:00 37.1 C 70 17 173/86 H 96 03/28/24 16:38 70 03/28/24 16:18 78 18 156/91 H 94 03/28/24 16:12 36.7 C 79 18 156/91 H 94 O2 Del Method 03/28/24 19:00 Room Air 03/28/24 16:38 03/28/24 16:18 Room Air 03/28/24 16:12 Room Air Laboratory Results Impressions Lumbar Spine CT 03/28/24 16:20 CT lumbar spine wo con CLINICAL HISTORY: R lower back pain s/p fall TECHNIQUE: Multidetector row helical CT of the lumbar spine was performed without administration of intravenous contrast. Coronal and sagittal reformations were obtained. Automated dose lowering techniques and/or adjustment according to patient size were utilized for this exam. CT DOSE: 2168.98 mGy.cm Comparison: None available at the time of this dictation. FINDINGS: For counting purposes, the last complete intervertebral disc space is considered L5-S1. There is an acute fracture of the superior endplate of L2 without retropulsion. Degenerative changes are noted in the visualized spine. Vertebral body alignment is within normal limits. IVC filter is seen. IMPRESSION: Acute fracture of the superior endplate of L2 without retropulsion. ACT 112: Negative or not required by law. Electronically signed by: Aguila Capone M.D. 03/28/2024 5:[address] 03/28/24 16:20 CT pelvis wo con CLINICAL HISTORY: R lower back pain s/p fall TECHNIQUE: Helical axial images of the pelvis were obtained and displayed at 5 and 1 mm intervals. Automated dose lowering techniques and/or adjustment according to patient size were utilized for this exam. This exam was performed without intravenous contrast. COMPARISON: Comparison is made to CT abdomen pelvis 11/29/2023 FINDINGS: Bladder: Unremarkable. Reproductive organs: Unremarkable. Bowel: Postsurgical changes are seen in the cecum. Diverticulosis is seen without diverticulitis. Lymph nodes Pelvic: Unremarkable. Mesenteric: Unremarkable. Peritoneum: Normal Vessels: Atherosclerotic calcifications are seen. Abdominal wall: Unremarkable. Bones: Degenerative changes are seen in the bilateral hips and pelvis. No acute fracture. IMPRESSION: No acute abnormalities and in particular no evidence of acute fracture. ACT 112: Negative or not required by law. Electronically signed by: Aguila Capone M.D. 03/28/2024 5:[address] 03/28/24 16:21 CT head/brain wo con CLINICAL HISTORY: 88 years-old Female with fall, on OAC. Acute head trauma status post fall TECHNIQUE: Multiple axial CT images of the head were obtained without contrast. A dose lowering technique was utilized adhering to the principles of ALARA. COMPARISON: 12/23/2017 FINDINGS: No acute intracranial hemorrhage, midline shift, intracranial mass, hydrocephalus, territorial ischemia or abnormal extra-axial collection. Inv olutional changes with chronic microvascular ischemic disease. Cerebrovascular calcifications. The calvarium is intact. The paranasal sinuses, mastoid air cells, and middle ear cavities are clear. IMPRESSION: No acute intracranial abnormality or calvarial fracture. ACT 112: Negative or not required by law. The above report was generated using voice recognition software. It may contain grammatical, syntax or spelling errors. Electronically signed by: Roque Duarte M.D. 03/28/2024 5:05 PM PG Care Time/CCT Total # of Minutes Spent Total Time Spent with Patient: Total time spent is greater than 50% in coordination of care (as documented) at patient's floor/unit and/or counseling patient: Coding Level of Care Code 78923 INT INP/OBS CARE 2/55MIN Diagnoses Closed lumbar vertebral fracture S32.029A Encounter type: initial encounter Fracture morphology: unspecified fracture morphology Lumbar vertebra fracture level: L2 (1) Closed lumbar vertebral fracture Encounter type: initial encounter Fracture morphology: unspecified fracture morphology Lumbar vertebra fracture level: L2 Qualified Code(s): S32.029A - Unspecified fracture of second lumbar vertebra, initial encounter for closed fracture
[2024-03-28 21:11] LABS: Basophils # (auto) 0.01 K/uL (0.00-0.20); Basophils % (auto) 0.1 %; Eosinophils # (auto) 0.08 K/uL (0.00-0.50); Eosinophils % (auto) 0.9 %; Hematocrit (blood only) 38.5 % (37.0-47.0); Hemoglobin 12.3 g/dl (12.0-16.0); Immature Granulocytes # (auto) 0.07 K/uL (0.01-0.20); Immature Granulocytes % (auto) 0.8 %; Lymphocytes # (auto) 1.39 K/uL (1.20-3.40); Lymphocytes % (auto) 15.1 %; Mean Corpuscular Hgb Conc 31.9 g/dL (32.0-36.0); Mean Corpuscular Volume 87.5 fL (80.0-100.0); Mean Platelet Volume 9.1 fL (9.4-12.4); Monocytes # (auto) 0.71 K/uL (0.11-0.59); Monocytes % (auto) 7.7 %; Neutrophils # (auto) 6.93 K/uL (1.40-6.50); Neutrophils % (auto) 75.4 %; Platelet Count 220 K/uL (130-400); RDW Coefficient of Variation 15.8 % (11.5-14.5); RDW Standard Deviation 50.1 fL (36.4-46.3); White Blood Count 9.19 K/ul (4.8-10.8)
[2024-03-28 21:19] LABS: Albumin Globulin Ratio 1.3 (0.9-2); Albumin Level 3.9 gm/dl (3.4-5.0); Bilirubin,Total 0.3 mg/dl (0.2-1.0); Calcium 9.7 mg/dl (8.6-10.3); Creatinine Clr Calc Pharmacy 43.2 ml/min; Est GFR (African American) 62.9 ml/min; Est GFR (Non-African American) 54.2 ml/min; Globulin 2.9 gm/dl (2.5-4.0); Potassium 4.5 mmol/L (3.5-5.1); Total Protein 6.8 gm/dl (6.0-8.3)
[2024-03-28] MEDS: METOPROLOL SUCC 50MG EXT REL TAB PO STA (22:11)
[2024-03-28] MEDS: APIXABAN 2.5 MG TAB PO STA (22:11)
[2024-03-28] MEDS: oxyCODONE HCL IR 5 MG TAB (IMMEDIATE RELEASE) PO STA (22:12)
[2024-03-28] MEDS: LANTUS PER UNIT CHARGE SQ STA (22:18)
[2024-03-28] MEDS ORDERED: CARBOHYDRATES FOR HYPOGLYCEMIA PO PRN (23:01)
[2024-03-28] MEDS ORDERED: DEXTROSE 50% 50 ML SYRINGE IV PRN (23:01)
[2024-03-28] MEDS ORDERED: ONDANSETRON INJ 2 MG/ML 2 ML VIAL IV PRN (23:01)
[2024-03-28] MEDS ORDERED: DOCUSATE SODIUM 100 MG CAP PO PRN (23:01)
[2024-03-28] MEDS ORDERED: GLUCAGON FOR INJ 1 MG VIAL SQ PRN (23:01)
[2024-03-28] MEDS ORDERED: GLUCOSE 40% GEL 15 GM TUBE PO PRN (23:01)
[2024-03-28] MEDS ORDERED: POLYETHYLENE (MIRALAX) 17 GM PACK PO PRN (23:01)
[2024-03-28] MEDS ORDERED: GLUCOSE 10 TAB/TUBE PO PRN (23:01)
[2024-03-28] MEDS: ACETAMINOPHEN 500 MG TAB PO SCH (23:45)
[2024-03-28] MEDS: LANTUS PER UNIT CHARGE SQ SCH (23:46)
[2024-03-28] MEDS: INSULIN ASPART PER UNIT CHARGE SC SCH (23:46)
--- OUTSIDE RECORDS SUMMARY | 2024-03-29 03:07 | External Medical Summary | Summary of Care ---
Author Name Unknown Organization [facility] Address [address] [place] [address] Phone [phone] Care Team Providers Care Planer Stone Name Role Phone Avelina Douglas EMILY Primary Care Provider Reason for Visit * Reason Onset Date Comments Test Results 02/12/2024 Encounter Details Date Type Department Care Team (Late st Contact Info) Description 02/12/2024 Telephone Hematology/Oncology [facility] [address] [facility] [place] [id number] Marko Calloway MD [address] [place] [address] Test Results Allergies Active Allergy Reactions Criticality Noted Date Comments Levofloxacin Other (Please comment) 05/26/2017 Cramping pains Nitrofurantoin Nausea/vomiting,Othe r (Please comment) 08/26/2022 Dizziness Propofol Nausea/vomiting 01/03/2018 documented as of this encounter (statuses as of 02/14/2024) Medications Medication Sig Dispensed Refills Start Date End Date Status acetaminophen (TYLENOL) 500 MG Tablet Take 1 Tablet by mouth every 6 hours as needed for Pain. Active Dextrose, Diabetic Use, (GLUCOSE) 15 GM/33GM GEL Take by mouth. Active atorvaSTATin (LIPITOR) 20 MG Tablet Take [...] Active metFORMIN ER (GLUCOPHAGE XR) 500 MG [id number] iabetes mellitus type 2, insulin dependent (HCC) [...] pill at bedtime for anxiety 30 Tab 04/03/2018 Active methimazole (TAPAZOLE) 5 MG Tablet Take 2 Tablets by mouth once a day on Monday, Monday, Monday, and only. 03/08/2019 Active Loratadine 10 MG Oral Tablet (Claritin) Take 1 Tablet by mouth in the morning. Active Escitalopram Oxalate 20 MG Oral Tablet (Lexapro) Take 1 Tablet by mouth in the morning. 12/10/2021 Active hydroCHLOROthiazi de 25 MG Oral Tablet (Hydrodiuril) Take one tablet 2-3 days per week for edema, HTN 36 Tablet 3 02/01/2022 Active Ondansetron HCl 4 MG Oral Tablet (Zofran) Take 1 Tablet by mouth as needed. 08/05/2022 Active Losartan Potassium 25 MG Oral Tablet [...] before bedtime. 180 Tablet 3 07/17/2023 Active Estradiol 0.1 MG/GM Vaginal Cream (Estrace) Apply pea sized amount (0.5 mg) vaginally every other night at bedtime 42.5 g 3 10/09/2023 Active Solifenacin Succinate 5 MG Oral Tablet (VESIcare) Take 1 Tablet by mouth in the morning. 90 Tablet 3 11/22/2023 Active dilTIAZem HCl ER 180 MG Oral Capsule Extended Release 24 Hour (Dilt-XR)Indicati ons:Cecal cancer (HCC),Atrial fibrillation, unspecified type (HCC) Take 1 Capsule by mouth in the morning. 30 Capsule 12/29/2023 Active Fluconazole 150 MG Oral Tablet (Diflucan) Take 1 Tablet by mouth once a week. 4 Tablet 09/15/2023 Discontinue d(Refill) documented as of this encounter (statuses as of 02/14/2024) Active Problems Problem Noted Date Diagnosed Date [...] as of this encounter (statuses as of 02/14/2024) Immunizations Name Administration Dates Next Due COVID-19 [...] drink = 0.6 oz pur e alcohol) Utilities Answer Date Recorded Do you have trouble paying y our heating, water, or electric bill? (Adult - for ages 18 years and over) Not on file 02/13/2024 Is your family able to pay t he heat, water, or electric bill? (Household - for ages 0-17 years) Not on file 02/13/2024 Does your family have access to good internet? (Household - for ages 0-17 years) Not on file 02/13/2024 Social Connections Answer Date Recorded How often do you feel lonely or isolated from those around you? (Adult - for ages 18 years and over) Not on file 02/13/2024 Sex and Gender Information Value Date Recorded [...] encounter Miscellaneous Notes * Telephone Encounter - Jess Newton LPN - 02/14/2024 8:34 AM EDT 3rd attempt to call patient: Left message patient's machine. Return number provided. Result letter placed in outgoing mail * Telephone Encounter - Jess Newton LPN - 02/13/2024 9:43 AM EDT 2nd attempt: Left message for patient to return call, return number provided. Re: lab results 02/12/2024 * Telephone Encounter - Jess Newton LPN - 02/12/2024 11:53 AM EDT Left patient a message on her voicemail, return phone number provided. My G sent. * Telephone Encounter - Jess Newton LPN - 02/12/2024 11:44 AM EDT ----- Message from Marko Calloway MD sent at 02/09/2024 4:04 PM EDT ----- Blood workup done on 02/08/2024: -Ferritin level--> 37. It was 73 about a month back. Hemoglobin slowly dropped down to 11.7. -Serum iron 46, TIBC 263, iron saturation 17%. Gradual improvement of the hemoglobin level noted, slight drop in the Ferritin level noted Would like to repeat CBCD Ferritin, iron profile in about 4 to 6 weeks' time. documented in this encounter Plan of Treatment Upcoming Encounters Date Type Department Care Team (Late st Contact Info) Description 06/27/2024 10:50 AM EDT Laboratory Laboratory, [address] [place] [address] [address] [id number] 06/27/2024 11:00 AM EDT Imaging Radiology [facility] [address] [place] [address] 07/01/2024 8:30 AM EST Cardiac Studies Cardiology, [address] [place] [address] [facility] [address] [id number] 07/04/2024 2:15 PM EST Office Visit Hematology/Oncology [facility] [address] [facility] [place] [phone] Marko Calloway MD [address] [facility] [place] [address] Health Maintenance Due Date Last Done Comments Depression Screening 1947 Albumin/Creatinine Ratio 1955 Diabetic Eye Exam 1955 DTaP,Tdap,and Td Vaccines (1 - Tdap) 1956 VITAMIN D LEVEL ONCE IN A LIFETIME-USE SMARTSET# [id number] 1977 DXA Scan 1987 Diabetic Foot Exam 10/03/2018 10/03/2017 COVID-19 Vaccine ( season) 2023 06/03/2022, 05/10/2021, 10/25/2020, Additional history exists Influenza Vaccine (FLU shot) (Season Ended) 2024 06/03/2022, 07/03/2017, 07/03/2017 HbA1c 05/18/2024 11/16/2023, 030 08/2023, 2023, Additional history exists B-12 10/19/2024 10/19/2023, 08/26/2022 Pneumococcal Vaccine: 65+ Years Completed 08/12/2017, 10/03/2015 Zoster Vaccines Completed 07/31/2020, 09/2019, 09/02/2012 GARDASIL-HPV IMMUNIZATION SERIES Aged Out No longer eligible based on patient's age to complete this topic Hepatitis B Aged Out No longer eligi ble based on patient's age to complete this topic MENINGOCOCCAL (MENACTRA/MENVEO) Aged Out No longer eligible based on patient's age to complete this topic documented as of this encounter Medical Devices Implanted Type Area Contract Administrative Assistant Device Identifier Shelf Expiration Date Model / Serial / Lot Bard Peripheral Vascular Alyssa Vena Cava Filter Implanted:Qty: 1 on 08/23/2017 by Nato Singh DO [place] 06/27/2020 [id number] / [id number] / [id number] Lens Li61ao 13.00mm 22.00 - [id number] - [id number] Implanted:Qty: 1 on 03/21/2023 by Augustine Duong MD at OR [facility] Left: Eye [employer] 11/26/2027 [id number] / [id number] / [id number] Lens Li61ao 13.00mm 22.00 - [id number] - [id number] Implanted:Qty: 1 on 04/04/2023 by Augustine Duong MD at OR [facility] Right: Eye [employer]OM[employer] 12/26/2027 [id number] / [id number] / [id number] documented as of this encounter Advance Directives * No Code (Latest Code Status on File) Date Activated Date Inactivated Comments 03/21/2023 10:19 AM 03/21/2023 4:27 PM This order reflects the patients wishes and were consensually agreed upon. Question Answer Comments Discussion of Advance Directives occurred with: Patient Does the patient have a Living Will? No Does the patient have Health Care Power of Attor tobin? No * Full Code Date Activated Date Inactivated Comments 08/27/2017 9:48 PM 09/04/2017 4:13 PM This order r eflects the patients wishes and were consensually agreed upon. Question Answer Comments Discussion of Advance Directives occurred with: Patient Does the patient have a Living Will? No Does the patient have Health Care Power of Attor tobin? No * Full Code Date Activated Date Inactivated Comments 08/22/2017 8:14 PM 08/25/2017 7:18 PM This order reflects the patients wishes and were consensually agreed upon. Question Answer Comments Discussion of Advance Directives occurred with: Patient/Family Does the patient have a Living Will? No Does the patient have Health Care Power of Attor tobin? No Care Teams Planer Stone Relationship Specialty Start Date End Date Avelina Douglas CRNP [address] [address] PCP - General Nurse Practitioner 03/16/23 documented as of this encounter
--- OUTSIDE RECORDS SUMMARY | 2024-03-29 03:07 | External Medical Summary | Summary of Care ---
Author Name Unknown Organization [facility] Address [address] [facility] [place] [address] Phone [phone] Care Team Providers Care Finish Repairer Name Role Phone Avelina Douglas EMILY Primary Care Provider Encounter Details Date Type Department Care Team (Late st Contact Info) Description 12/08/2023 Telephone Cardiology, [facility] [address] [place] [address] Cole Holliday MD [address] [place] [phone] Allergies Active Allergy Reactions Criticality Noted Date Comments Levofloxacin Other (Please comment) 05/26/2017 Cramping pains Nitrofurantoin Nausea/vomiting,Othe r (Please comment) 08/26/2022 Dizziness Propofol Nausea/vomiting 01/03/2018 documented as of this encounter (statuses as of 03/08/2024) Medications Medication Sig Dispensed Refills Start Date [...] Active metFORMIN ER (GLUCOPHAGE XR) 500 MG [id number]:Di abetes mellitus type 2, insulin dependent (HCC) [...] by mouth in the morning. 12/10/2021 Active hydroCHLOROthiazid e 25 MG Oral Tablet (Hydrodiuril) Take one tablet 2-3 days per week for edema, HTN 36 Tablet 3 02/01/2022 Active Ondansetron HCl 4 MG Oral Tablet (Zofran) Take 1 Tablet by mouth as needed. 08/05/2022 Active Iron-Vitamin C 65-125 MG Oral Tablet [...] the morning. 90 Tablet 3 11/22/2023 Active documented as of this encounter (statuses as of 03/08/2024) Active Problems Problem Noted Date Diagnosed Date [...] as of this encounter (statuses as of 03/08/2024) Immunizations Name Administration Dates Next Due COVID-19 [...] encounter Miscellaneous Notes * Telephone Encounter - Vinita Crystal OSA - 12/08/2023 10:12 AM EDT documented in this encounter Plan of Treatment Upcoming Encounters Date Type Department Care Team (Late st Contact Info) Description 06/27/2024 10:50 AM EDT Laboratory Laboratory, [facility] [address] [facility] [place] [address] Hans Wetzel [address] [place] [address] 06/27/2024 11:00 AM EDT Imaging Radiology [facility] 1st Floor, [address] [place] [address] 07/01/2024 8:30 AM EST Cardiac Studies Cardiology, [address] [place] [address] [facility] [address] [place] [address] 07/04/2024 2:15 PM EST Office Visit Hematology/Oncology [facility] [address] [facility] [place] [address] Marko Calloway MD [address] [facility] [place] [address] Health Maintenance Due Date Last Done Comments Depression Screening 1949 Albumin/Creatinine Ratio 1955 Diabetic Eye Exam 1955 DTaP,Tdap,and Td Vaccines (1 - Tdap) 1956 VITAMIN D LEVEL ONCE IN A LIFETIME-USE SMARTSET# 38019 1977 DXA Scan 1987 Diabetic Foot Exam 10/03/2018 10/03/2017 COVID-19 Vaccine ( season) 2023 06/03/2022, 05/10/2021, 10/25/2020, Additional history exists Influenza Vaccine (FLU shot) (#1) 2024 06/03/2022, 07/03/2017, 07/03/2017 HbA1c 08/23/2024 02/22/2024, 10/27, 10/27/2023, Additional history exists B-12 10/19/2024 10/19/2023, 08/26/2022 Pneumococcal Vaccine: 65+ Years Completed 08/12/2017, 10/03/2015 Zoster Vaccines Completed 07/31/2020, 100 09/2019, 09/02/2012 HPV (Gardasil) Vaccine Aged Out No lo nger eligible based on patient's age to complete this topic Hepatitis B Vaccine Aged Out No longe r eligible based on patient's age to complete this topic MENINGOCOCCAL (MENACTRA/MENVEO) Aged Out No longer eligible based on patient's age to complete this topic documented as of this encounter Medical Devices Implanted Type Area Benzol Still Operator Device Identifier Shelf Expiration Date Model / Serial / Lot Bard Peripheral Vascular Simpson Vena Cava Filter Implanted:Qty: 1 on 08/23/2017 by Nato Singh DO at RADIOLOGY [facility] Abdomen 06/27/2020 [id number] / [id number] / [id number] Lens Li61ao 13.00mm 22.00 - [id number] - [id number] Implanted:Qty: 1 on 03/21/2023 by Augustine Duong MD at OR [facility] Left: Eye [employer]OMB 11/26/2027 [id number] 0 / [id number] / [id number] Lens Li61ao 13.00mm 22.00 - [id number] - [id number] Implanted:Qty: 1 on 04/04/2023 by Augustine Duong MD at OR [facility] Right: Eye BAUSCH & LOMB 12/26/2027 [id number] / [id number] / [id number] documented as of this encounter Advance Directives [...] Power of Attor tobin? No Care Teams Finish Repairer Relationship Specialty Start Date End Date Avelina Douglas CRNP [address] [address] PCP - General Nurse Practitioner 03/16/23 documented as of this encounter
--- OUTSIDE RECORDS SUMMARY | 2024-03-29 03:07 | External Medical Summary ---
Author Name Unknown Address Unknown Organization K01:LABORATORY [facility] [place] - [facility] [address] [facility] [address] [facility] [address] Laboratory Report Ordering Provider Test Date Status FRANKIE BERKOWITZ 02/22/2024 07:00:00 Final Observation Date Value Abnormality Reference (Units ) Status HbA1C 02/22/2024 07:00:00 8.6 Above high normal 4. 0-5.6 (%) Final The use of HbA1c to monitor glycemic status is based on normal hemoglobin and HbA composition. This test should not be used in patients with abnormal hemoglobin that affects the half life of the red blood cell or the in vivo glycation rates. Glucose, estimated average 02/22/2024 07:00:00 200 Above high normal <126 (mg/dL) Sridhar liriano Performing Location LAB[facility]ATORY [facility] [place] [facility] [address] [facility] [address] [facility] [address]
--- OUTSIDE RECORDS SUMMARY | 2024-03-29 03:07 | External Medical Summary | Summary of Care ---
Author Name Unknown Organization [facility] Address [address] [facility] [place] [address] Phone [phone] Care Team Providers Care Screen Handler Name Role Phone Avelina Douglas EMILY Primary Care Provider Reason for Visit * Reason Comments eRx-Medication Refill Encounter Details Date Type Department Care Team (Late st Contact Info) Description 02/15/2024 Refill Cardiology, [facility] [address] [place] [address] Darius Stuart PA-C [address] [place] [phone] Essential hypertension* Allergies Active Allergy Reactions Criticality Noted Date Comments Levofloxacin Other (Please comment) 05/26/2017 Cramping pains Nitrofurantoin Nausea/vomiting,Othe r (Please comment) 08/26/2022 Dizziness Propofol Nausea/vomiting 01/03/2018 documented as of this encounter (statuses as of 02/15/2024) Medications Medication Sig Dispensed Refills Start Date End Date Status acetaminophen (TYLENOL) 500 MG Tablet Take 1 Tablet by mouth every 6 hours as needed for Pain. Active Dextrose, Diabetic Use, (GLUCOSE) 15 GM/33GM GEL Take by mouth. Active atorvaSTATin (LIPITOR) 20 MG Tablet Take 1 Tablet by mouth in the morning. 30 Tab 5 8 Active insulin aspart (INSULIN ASPART) 100 UNIT/ML injectionIndicati ons:Diabetes mellitus type 2, insulin dependent (HCC) Inject under skin per sliding scale 2 Vial 5 8 Active apixaban (ELIQUIS) 5 MG TabletIndications :Chronic atrial fibrillation (HCC),Other acute pulmonary embolism without acute cor pulmonale (HCC) Take 1 Tab by mouth 2 times a day. 60 Tab 5 8 Active LANTUS SOLOSTAR 100 UNIT/ML SOPNIndications:D iabetes mellitus type 2, insulin dependent (HCC) Inject 16 Units under the skin in the morning. 1 Pre-filled Pen Syringe Dosing Unit 5 8 Active metFORMIN ER (GLUCOPHAGE XR) 500 MG [id number]:D iabetes mellitus type 2, insulin dependent (HCC) Take 2 Tabs by mouth daily. 60 Tab 11 8 Active Additional Information Patient taking differently: 500 mgOralBID (.AM/PM), Reported on 08/26/2022 loperamide (IMODIUM) 2 MG CapsuleIndication s:Diarrhea, unspecified type Take 1 Cap by mouth 4 times a day as needed for Diarrhea. 30 Cap 4 8 Active Additional Information Patient not taking.Reported on 07/17/2023 ALPRAZolam (XANAX) 0.25 MG Tablet One pill at bedtime for anxiety 30 Tab 8 Active methimazole (TAPAZOLE) 5 MG Tablet Take 2 Tablets by mouth once a day on Monday, Monday, Monday, and only. 9 Active Loratadine 10 MG Oral Tablet (Claritin) Take 1 Tablet by mouth in the morning. Active Escitalopram Oxalate 20 MG Oral Tablet (Lexapro) Take 1 Tablet by mouth in the morning. 2 Active hydroCHLOROthiazi de 25 MG Oral Tablet (Hydrodiuril) Take one tablet 2-3 days per week for edema, HTN 36 Tablet 3 2 Active Ondansetron HCl 4 MG Oral Tablet (Zofran) Take 1 Tablet by mouth as needed. 2 Active Gemtesa 75 MG Oral Tablet Take 1 Tablet by mouth in the morning. 90 Tablet 3 3 Active Iron-Vitamin C 65-125 MG Oral Tablet (Vitron C)Indications:Ane josias, unspecified type TAKE 1 TABLET BY MOUTH ONCE DAILY 90 Tablet 3 3 Active Metoprolol Succinate ER 100 MG Oral Tablet Extended Release 24 Hour (toPROL XL) Take 1 Tablet by mouth in the morning and 1 Tablet before bedtime. 180 Tablet 3 3 Active Estradiol 0.1 MG/GM Vaginal Cream (Estrace) Apply pea sized amount (0.5 mg) vaginally every other night at bedtime 42.5 g 3 4 Active Solifenacin Succinate 5 MG Oral Tablet (VESIcare) Take 1 Tablet by mouth in the morning. 90 Tablet 3 4 Active dilTIAZem HCl ER 180 MG Oral Capsule Extended Release 24 Hour (Dilt-XR)Indicati ons:Cecal cancer (HCC),Atrial fibrillation, unspecified type (HCC) Take 1 Capsule by mouth in the morning. 30 Capsule 4 Active Fluconazole 150 MG Oral Tablet (Diflucan) Take 1 Tablet by mouth once a week. 4 Tablet 4 Active Losartan Potassium 25 MG Oral Tablet (Cozaar)Indicatio ns:Essential hypertension TAKE 1 TABLET BY MOUTH DAILY 90 Tablet 3 4 Active Losartan Potassium 25 MG Oral Tablet (Cozaar)Indicatio ns:Paroxysmal atrial fibrillation (HCC),Essential hypertension TAKE 1 TABLET BY MOUTH DAILY 90 Tablet 3 3 02/15/20 24 Discontinued documented as of this encounter (statuses as of 02/15/2024) Active Problems Problem Noted Date Diagnosed Date [...] as of this encounter (statuses as of 02/15/2024) Immunizations Name Administration Dates Next Due COVID-19 [...] encounter Miscellaneous Notes * Telephone Encounter - Pasha Engle CRNP - 02/15/2024 2:01 PM EDT Signed Prescriptions: Disp Refills Losartan Potassium 25 MG Oral Tablet (Coza*90 Tab*3 Sig: TAKE 1 TABLET BY MOUTH DAILY Authorizing Provider: PASHA ENGLE * Telephone Encounter - Arcelia Branch CMA - 02/15/2024 1:55 PM EDTPending Prescriptions: Disp Refills Losartan Potassium 25 MG Oral Tablet (Coza*90 Tab*3 Sig: TAKE 1 TABLET BY MOUTH DAILY * Telephone Encounter - Arcelia Branch CMA - 02/15/2024 1:53 PM EDT Did you pend patient's preferred pharmacy and medication before forwarding?yes Pharmacy: [facility] Pending Prescriptions: Disp Refills Losartan Potassium 25 MG Oral Tablet (Coz*90 Tab*3 Sig: TAKE 1 TABLET BY MOUTH DAILY Last Visit: 07/17/2023 (in office), Visit date not found (telemedicine) Next Visit: 07/01/2024 If no future appointments scheduled, and last appointment is greater than a year ago, please schedule patient for a follow-up appointment Last date the medication was ordered: 05/02/23 Is this request for a controlled substance?No Urine Drug Screen:No results found for this or any previous visit. Patient Phone Numbers Labs: Lab Results Component Value Date/Time CREAT 1.3 (H) 12/14/2023 08:20 AM CREAT 0.79 12/08/2020 12:00 AM CREAT 0.9 11/23/2017 02:07 PM POTASSIUM 5.0 12/14/2023 08:20 AM POTASSIUM 4.4 12/08/2020 12:00 AM POTASSIUM 4.5 11/23/2017 02:07 PM TSH 6.78 (H) 11/16/2023 08:42 AM TSH 4.550 (A) 05/01/2018 12:00 AM LDLCALC 85 02/08/2018 12:00 AM LDLDIRECT 64 08/26/2022 09:44 AM ALT 6 (L) 08/26/2022 09:44 AM ALT 18 11/23/2017 02:07 PM HGBA1C 5.4 11/16/2023 08:42 AM HGBA1C 6.8 (A) 02/08/2018 12:00 AM documented in this encounter Plan of Treatment Upcoming Encounters Date Type Department Care Team (Late st Contact Info) Description 06/27/2024 10:50 AM EDT [facility] [address] [place] [phone] Hans Wetzel [address] [place] [address] 06/27/2024 11:00 AM EDT Imaging Radiology [facility] [address] [facility] [address] [facility] [place] [address] 07/01/2024 8:30 AM EST Cardiac Studies Cardiology, [facility] [address] [facility] [place] [address] [facility] [address] [facility] [place] [address] 07/04/2024 2:15 PM EST Office Visit Hematology/Oncology [facility] 200 [facility] [place] [address] Marko Calloway MD [address] [place] [address] Health Maintenance Due Date Last Done Comments Depression Screening 1947 Albumin/Creatinine Ratio 1955 Diabetic Eye Exam 1955 DTaP,Tdap,and Td Vaccines (1 - Tdap) 1956 VITAMIN D LEVEL ONCE IN A LIFETIME-USE SMARTSET# 18642 1977 DXA Scan 1987 Diabetic Foot Exam 10/03/2018 10/03/2017 COVID-19 Vaccine ( season) 2023 06/03/2022, 05/10/2021, 10/25/2020, Additional history exists Influenza Vaccine (FLU shot) (Season Ended) 2024 06/03/2022, 07/03/2017, 07/03/2017 HbA1c 05/18/2024 11/16/2023, 0308/2023, 2023, Additional history exists B-12 10/19/2024 10/19/2023, [...] this encounter Medical Devices Implanted Type Area Nutrition Partner Device Identifier Shelf Expiration Date Model / Serial / Lot Bard Peripheral Vascular [place] Vena Cava Filter Implanted:Qty: 1 on 08/23/2017 by Nato Singh DO at RADIOLOGY [facility] Abdomen 06/27/2020 [id number] / [id number] / [id number] Lens Li61ao 13.00mm 22.00 - [id number] - [id number] Implanted:Qty: 1 on 03/21/2023 by Augustine Duong MD at OR [facility] Left: Eye BA[employer]CH [employer] LOMB 11/26/2027 [id number] 0 / [id number] / [id number] Lens Li61ao 13.00mm 22.00 - [id number] - [id number] Implanted:Qty: 1 on 04/04/2023 by Augustine Duong MD at OR [facility] Right: Eye BAUSCH & LOMB 12/26/2027 [id number] / [id number] / [id number] documented as of this encounter Visit Diagnoses Diagnosis Essential hypertension- Primary Unspecified essential hypertension documented in this encounter Advance Directives * No Code [...] Power of Attor tobin? No Care Teams Screen Handler Relationship Specialty Start Date End Date Avelina Douglas CRNP [address] [place] [address] PCP - General Nurse Practitioner 03/16/23 documented as of this encounter
--- OUTSIDE RECORDS SUMMARY | 2024-03-29 03:07 | External Medical Summary | Summary of Care ---
Author Name Unknown Organization [facility] Address [address] [facility] [place] [address] Phone [phone] Care Team Providers Care Maintenance Repairer Name Role Phone Avelina Douglas EMILY Primary Care Provider Reason for Visit * Reason Onset Date Comments Medication Refill 02/22/2024 Encounter Details Date Type Department Care Team (Late st Contact Info) Description 02/22/2024 Refill Urogynecology [facility] [address] [place] [address] Andrae Joaquin MD [address] [place] [address] Allergies Active Allergy Reactions Criticality Noted Date Comments Levofloxacin Other (Please comment) 05/26/2017 Cramping pains Nitrofurantoin Nausea/vomiting,Othe r (Please comment) 08/26/2022 Dizziness Propofol Nausea/vomiting 01/03/2018 documented as of this encounter (statuses as of 02/22/2024) Medications Medication Sig Dispensed Refills Start Date [...] Active metFORMIN ER (GLUCOPHAGE XR) 500 MG [id number]:D iabetes mellitus type 2, insulin dependent (HCC) [...] by mouth once a week. 4 Tablet 02/12/2024 Active Losartan Potassium 25 MG Oral Tablet (Cozaar)Indicatio ns:Essential hypertension TAKE 1 TABLET BY MOUTH DAILY 90 Tablet 3 02/15/2024 Active Gemtesa 75 MG Oral Tablet Take 1 Tablet by mouth in the morning. 90 Tablet 3 02/22/2024 Active Gemtesa 75 MG Oral Tablet Take 1 Tablet by mouth in the morning. 90 Tablet 3 04/28/2023 Discontinue d(Refill) documented as of this encounter (statuses as of 02/22/2024) Active Problems Problem Noted Date Diagnosed Date [...] as of this encounter (statuses as of 02/22/2024) Immunizations Name Administration Dates Next Due COVID-19 [...] encounter Miscellaneous Notes * Telephone Encounter - Andrae Joaquin MD - 02/22/2024 5:34 PM EDTSigned Prescriptions: Disp Refills Gemtesa 75 MG Oral Tablet 90 Tab*3 Sig: Take 1 Tablet by mouth in the morning. Authorizing Provider: ANDRAE JOAQUIN * Telephone Encounter - Ro Arboleda OSA - 02/22/2024 5:28 PM EDT Received automatic refill request via fax from [facility] pharmacy for medication Gemtesa 75mg a 90 day supply Patient last seen 01/29/2024 (in office), 02/15/2023 (telemedicine) Future appt Visit date not found documented in this encounter Plan of Treatment Upcoming Encounters Date Type Department Care Team (Late st Contact Info) Description 06/27/2024 10:50 AM EDT [facility] [address] [place] [phone] WetzelHans zapata [address] [place] [address] 06/27/2024 11:00 AM EDT Imaging Radiology [facility] 1st [facility] [address] [facility] [place] [address] 07/01/2024 8:30 AM EST Cardiac Studies Cardiology, [facility] [address] [facility] [place] [address] [facility] [address] [facility] [place] [address] 07/04/2024 2:15 PM EST Office Visit Hematology/Oncology [facility] [address] [facility] [place] [address] Marko Calloway MD [address] [place] [address] Health Maintenance Due Date Last Done Comments Depression Screening 1947 Albumin/Creatinine Ratio 1955 Diabetic Eye Exam 1955 DTaP,Tdap,and Td Vaccines (1 - Tdap) 1956 VITAMIN D LEVEL ONCE IN A LIFETIME-USE SMARTSET# [id number] 1977 DXA Scan 1987 Diabetic Foot Exam 10/03/2018 10/03/2017 COVID-19 Vaccine ( season) 2023 06/03/2022, 05/10/2021, 10/25/2020, Additional history exists Influenza Vaccine (FLU shot) (Season Ended) 2024 06/03/2022, 07/03/2017, 07/03/2017 HbA1c 08/23/2024 02/22/2024, /08/2023, 10/27/2023, Additional history exists B-12 10/19/2024 10/19/2023, [...] this encounter Medical Devices Implanted Type Area Diplomatic Interpreter Device Identifier Shelf Expiration Date Model / Serial / Lot Bard Peripheral Vascular Alyssa Vena Cava Filter Implanted:Qty: 1 on 08/23/2017 by Nato Singh DO [place] [facility] [place] 06/27/2020 [id number] / [id number] / [id number] Lens Li61ao 13.00mm 22.00 - [id number] - [id number] Implanted:Qty: 1 on 03/21/2023 by Augustine Duong MD at OR [facility] Left: Eye BAUSCH & LOMB 11/26/2027 [id number] 0 / [id number] / [id number] Lens Li61ao 13.00mm 22.00 - [id number] - [id number] Implanted:Qty: 1 on 04/04/2023 by Augustine Duong MD at OR [facility] Right: Eye BAUSCH & LOMB 12/26/2027 [id number] 0 / [id number] / [id number] documented as of this encounter Advance Directives [...] Power of Attor tobin? No Care Teams Maintenance Repairer Relationship Specialty Start Date End Date Avelina Douglas CRNP [address] [place] [address] PCP - General Nurse Practitioner 03/16/23 documented as of this encounter
--- OUTSIDE RECORDS SUMMARY | 2024-03-29 03:08 | External Medical Summary | Summary of Care ---
Author Name Unknown Organization [facility] Address [address] [facility] [place] [address] Phone [phone] Care Team Providers Care Ocean Fishing Guide Name Role Phone Avelina Douglas EMILY Primary Care Provider Reason for Visit * Reason Onset Date Comments Test Results 02/09/2024 Encounter Details Date Type Department Care Team (Late st Contact Info) Description 02/09/2024 Telephone Urogynecology [facility] [address] [place] [address] Andrae Joaquin MD [address] [place] [address] Test Results Allergies Active Allergy Reactions Criticality Noted Date Comments Levofloxacin Other (Please comment) 05/26/2017 Cramping pains Nitrofurantoin Nausea/vomiting,Othe r (Please comment) 08/26/2022 Dizziness Propofol Nausea/vomiting 01/03/2018 documented as of this encounter (statuses as of 02/12/2024) Medications Medication Sig Dispensed Refills Start Date [...] Active metFORMIN ER (GLUCOPHAGE XR) 500 MG [id number]:D iabetes mellitus type 2, insulin dependent (HCC) [...] once a week. 4 Tablet 02/12/2024 Active Fluconazole 150 MG Oral Tablet (Diflucan) Take 1 Tablet by mouth once a week. 4 Tablet 09/15/2023 Discontinue d(Refill) documented as of this encounter (statuses as of 02/12/2024) Active Problems Problem Noted Date Diagnosed Date [...] as of this encounter (statuses as of 02/12/2024) Immunizations Name Administration Dates Next Due COVID-19 [...] Telephone Encounter - Andrae Joaquin MD - 02/12/2024 12:28 PM EDT Called Mrs. Aponte, she is complaining of vaginal discharge and itching. She states it feels justlike a yeast infection that she had previously. She found that the diflucan was helpful in the past. Diflucan prescription refilled. All questions answered. She finds that the Botox is working well. She emptying large volume of urine without difficulty. She feels empty. She has much better bladder control. * Addendum Note - Andrae Joaquin MD - 02/12/2024 12:27 PM EDTAddended by: ANDRAE JOAQUIN on: 02/12/2024 12:27 PM Modules accepted: Orders * Telephone Encounter - Abby Loya LPN - 02/12/2024 11:59 AM EDT Pt called to inquire about recent test results. Aware no growth on culture. Still has itching she would like to discuss. Please call patient. Confirmed phone number in chart. * Telephone Encounter - Sheri Luna RN - 02/09/2024 12:23 PM EDT Call placed to the patient to discuss her urine results. Message left on her voicemail with a return phone number for her to return my call. * Telephone Encounter - Daiana Shukla LPN - 02/09/2024 10:22 AM EDT Patient called asking if her urine testing was back and if she needs to get something for treatment. Advised just the UA is back and not the culture yet. Patient pharmacy updated. documented in this encounter Plan of Treatment Upcoming Encounters Date Type Department Care Team (Late st Contact Info) Description 02/14/2024 9:25 AM EDT Office Visit Urogynecology [facility] 132 [facility] [place] [address] Andrae Joaquin MD [address] [place] [address] Nurse Rashard Urogyn [facility] [address] [place] [address] 06/27/2024 10:50 AM EDT Laboratory Laboratory, [facility] [address] [facility] [place] [phone] [facility] [address] [place] [address] 06/27/2024 11:00 AM EDT Imaging Radiology [facility] 1st [facility] 132 [facility] [place] [address] 07/01/2024 8:30 AM EST Cardiac Studies Cardiology, [facility] [address] [facility] [place] [address] [facility] 132 [facility] [place] [address] 07/04/2024 2:15 PM EST Office Visit Hematology/Oncology [facility] [place] [address] [place] [phone] Marko Calloway MD [address] [place] [address] Health Maintenance Due Date Last Done Comments Depression Screening 1949 Albumin/Creatinine Ratio 1955 Diabetic Eye Exam 1955 DTaP,Tdap,and Td Vaccines (1 - Tdap) 1956 VITAMIN D LEVEL ONCE IN A LIFETIME-USE SMARTSET# 91734 1977 DXA Scan 1987 Diabetic Foot Exam 10/03/2018 10/03/2017 COVID-19 Vaccine ( season) 2023 06/03/2022, 05/10/2021, 10/25/2020, Additional history exists Influenza Vaccine (FLU shot) (Season Ended) 2024 06/03/2022, 07/03/2017, 07/03/2017 HbA1c 05/18/2024 11/16/2023, 08/2023, 2023, Additional history exists B-12 10/19/2024 [...] this encounter Medical Devices Implanted Type Area Scribing Machine Operator Device Identifier Shelf Expiration Date Model / Serial / Lot Bard Peripheral Vascular Alyssa Vena Cava Filter Implanted:Qty: 1 on 08/23/2017 by Nato Singh DO at RAD[facility]OLOGY [facility] Abdomen 06/27/2020 [id number] / [id number] / [id number] Lens Li61ao 13.00mm 22.00 - [id number] - [id number] Implanted:Qty: 1 on 03/21/2023 by Augustine Duong MD at OR [facility] Left: Eye BAUSCH & LOMB 11/26/2027 [id number] Lens Li61ao 13.00mm 22.00 - [id number] - [id number] Implanted:Qty: 1 on 04/04/2023 by Augustine Duong MD at [facility] Right: Eye BAUSCH & LOMB 12/26/2027 [id number] / [id number] / [id number] documented as of this encounter Advance Directives [...] Power of Attor tobin? No Care Teams Ocean Fishing Guide Relationship Specialty Start Date End Date Avelina Douglas CRNP [address] [place] [address] PCP - General Nurse Practitioner 03/16/23 documented as of this encounter
--- OUTSIDE RECORDS SUMMARY | 2024-03-29 03:08 | External Medical Summary ---
Author Name Unknown Address Unknown Organization K01:[facility] [place] [address] [facility] [address] Laboratory Report Ordering Provider Test Date Status BRENDA RAMSEY 02/08/2024 08:05:00 Final Observation Date Value Abnormality Reference (Units ) Status SYNC LEUKOCYTES IN BLOOD BY AUTOMATED COUNT 02/08/2024 08:05:00 6.77 4.00-10.80 (K/uL) Final Segs 02/08/2024 08:05:00 53.3 40.0-75.0 (%) Final Lymphs % 02/08/2024 08:05:00 32.3 18.0-42.0 (%) Final Monos 02/08/2024 08:05:00 10.3 1.0-11.0 (%) Final Eosinophils 02/08/2024 08:05:00 3.7 0.0-6.0 (%) Final Basos 02/08/2024 08:05:00 0.3 0.0-2.0 (%) Final Immature Granulocyte, Percent 02/08/2024 08:05:00 0.1 0.0-2.0 (%) Final Absolute Segs 02/08/2024 08:05:00 3.60 1.80-7.70 (K/uL) Final Lymphs, absolute 02/08/2024 08:05:00 2.19 1.00-4.80 (K/ul) Final Monos, Abs 02/08/2024 08:05:00 0.70 0.00-1.10 (K/uL) Final Eos, Abs 02/08/2024 08:05:00 0.25 0.00-0.70 (K/uL) Final Basos, Abs 02/08/2024 08:05:00 0.02 0.00-0.20 (K/uL) Final Immature Granulocytes, Number 02/08/2024 08:05:00 0.01 0.00-0.20 (K/uL) Final Performing Location [facility] [place] [facility] [address] [place] [address]
--- OUTSIDE RECORDS SUMMARY | 2024-03-29 03:08 | External Medical Summary | Summary of Care ---
Author Name Unknown Organization [facility] Address [address] [place] [facility] [place] [place] [address] Phone [phone] Care Team Providers Care Globe Cleaner Name Role Phone Avelina Douglas EMILY Primary Care Provider Reason for Visit * Reason Onset Date Comments Test Results 02/12/2024 Encounter Details Date Type Department Care Team (Late st Contact Info) Description 02/12/2024 Telephone Hematology/Oncology [facility] 200 [facility] [place] [address] Marko Calloway MD 200 [place] [address] Test Results Allergies Active Allergy Reactions Criticality [...] Active metFORMIN ER (GLUCOPHAGE XR) 500 MG FA59Mujjuvwzzap:D iabetes mellitus type 2, insulin dependent (HCC) [...] 02/14/2024 9:25 AM EDT Office Visit Urogynecology [facility] 132 [facility] [place] [address] Andrae Joaquin MD [address] [place] [address] Nurse Rashard Urojanis [facility] 132 [place] [address] 06/27/2024 10:50 AM EDT Laboratory Laboratory, [address] [place] [phone] [facility] [address] [address] 06/27/2024 11:00 AM EDT Imaging Radiology [facility] [address] [facility] [place] [address] 07/01/2024 8:30 AM EST Cardiac Studies Cardiology, [address] [address] [facility] [address] 07/04/2024 2:15 PM EST Office Visit Hematology/Oncology [facility] [place] [address] [place] [phone] Marko Calloway MD [address] [place] [address] Health Maintenance Due Date Last Done Comments Depression Screening 1949 Albumin/Creatinine Ratio 1955 Diabetic Eye Exam 1955 DTaP,Tdap,and Td Vaccines (1 - Tdap) 1956 VITAMIN D LEVEL ONCE IN A LIFETIME-USE SMARTSET# [id number] 1977 DXA Scan 1987 Diabetic Foot Exam [...] this encounter Medical Devices Implanted Type Area Mental Health Associate Device Identifier Shelf Expiration Date Model / Serial / Lot Bard Peripheral Vascular Alyssa Vena Cava Filter Implanted:Qty: 1 on 08/23/2017 by Nato Singh DO at RADIOLOGY [facility] Abdomen 06/27/2020 [id number] / [id number] / [id number] Lens Li61ao 13.00mm 22.00 - [id number] - [id number] Implanted:Qty: 1 on 03/21/2023 by Augustine Duong MD at OR [facility] Left: Eye BAUSCH & LOMB 11/26/2027 [id number] 0 / [id number] Lens Li61ao 13.00mm 22.00 - [id number] - [id number] Implanted:Qty: 1 on 04/04/2023 by Augustine Duong MD at OR [facility] Right: Eye BAUSCH & LOMB 12/26/2027 [id number] / [id number] / [id number] documented as of this encounter Advance Directives [...] Power of Attor tobin? No Care Teams Globe Cleaner Relationship Specialty Start Date End Date Avelina Douglas CRNP [address] [place] [address] PCP - General Nurse Practitioner 03/16/23 documented as of this encounter
--- OUTSIDE RECORDS SUMMARY | 2024-03-29 03:08 | External Medical Summary ---
Author Name Unknown Address Unknown Organization K01:[facility] - [address] [place] [id number] Laboratory Report Ordering Provider Test Date Status BRENDA RAMSEY 02/08/2024 08:05:00 Final Observation Date Value Abnormality Reference (Units) Status Bacteria identified in Specimen by Culture 02/08/2024 08:05:00 No significant growth Final Test: Culture, Urine, Quanti tative
Specimen Source: Urine, Clean Catch
Specimen Type: Urine
Specimen Date: 02/08/2024 08
Result Date: 02/09/2024 1145
Result Status: Final result
Resulting Lab: [facility]
[address]
[place] [id number]

CULTURE

No significant growth

null Performing Location [facility] - [address] [facility] [address]
--- OUTSIDE RECORDS SUMMARY | 2024-03-29 03:08 | External Medical Summary ---
Author Name Unknown Address Unknown Organization K01:[facility] - [facility] [address] [place] [address] Laboratory Report Ordering Provider Test Date Status BRENDA RAMSEY 02/08/2024 08:05:00 Final Observation Date Value Abnormality Reference (Units ) Status WBC, Total 02/08/2024 08:05:00 6.77 4.00-10.80 (K/uL) Final RBC 02/08/2024 08:05:00 4.18 3.85-5.15 (M/uL) Final Hemoglobin 02/08/2024 08:05:00 11.7 Below low normal 12.0-15.3 (g/dL) Final HCT 02/08/2024 08:05:00 38.4 36.0-45.2 (%) Final MCV 02/08/2024 08:05:00 91.9 81.5-97.5 (fL) Final MCH 02/08/2024 08:05:00 28.0 27.0-34.0 (pg) Final MCHC 02/08/2024 08:05:00 30.5 32.0-36.0 (g/dL) Final RDW 02/08/2024 08:05:00 15.0 11.5-15.5 (%) Final Platelets 02/08/2024 08:05:00 272 140-400 (K/uL) Final MPV 02/08/2024 08:05:00 9.5 6.6-11.1 (fL) Final Nucleated erythrocytes/100 leukocytes [Ratio] in Blood by Automated count 02/08/2024 08:05:00 0 <=0 (/100 WBCs) Final Performing Location [facility] - [address] [place] [address]
--- OUTSIDE RECORDS SUMMARY | 2024-03-29 03:08 | External Medical Summary | Summary of Care ---
Author Name Unknown Organization [facility] Address [address] [place] [address] Phone [phone] Care Team Providers Care Obstetric Assistant Name Role Phone Avelina Douglas EMILY Primary Care Provider Reason for Visit * Reason Onset Date Comments Medication Refill 02/02/2024 Encounter Details Date Type Department Care Team (Late st Contact Info) Description 02/02/2024 Refill Hematology/Oncology [facility] 200 [facility] [place] [phone] Marko Calloway MD 200 [place] [address] Cecal cancer (HCC); Atrial fibrillation, unspecified type (HCC) Allergies Active Allergy Reactions Criticality Noted Date Comments Levofloxacin Other (Please comment) 05/26/2017 Cramping pains Nitrofurantoin Nausea/vomiting,Othe r (Please comment) 08/26/2022 Dizziness Propofol Nausea/vomiting 01/03/2018 documented as of this encounter (statuses as of 02/02/2024) Medications Medication Sig Dispensed Refills Start Date [...] Active metFORMIN ER (GLUCOPHAGE XR) 500 MG [id number]:Di abetes mellitus type 2, insulin dependent (HCC) [...] mouth once a week. 4 Tablet 09/15/2023 Active Additional Information Patient not taking.Reported on 10/09/2023 Estradiol 0.1 MG/GM Vaginal Cream (Estrace) Apply pea sized amount (0.5 mg) vaginally every other night at bedtime 42.5 g 3 10/09/2023 Active Solifenacin Succinate 5 MG Oral Tablet (VESIcare) Take 1 Tablet by mouth in the morning. 90 Tablet 3 11/22/2023 Active dilTIAZem HCl ER 180 MG Oral Capsule Extended Release 24 Hour (Dilt-XR)Indicatio ns:Cecal cancer (HCC),Atrial fibrillation, unspecified type (HCC) Take 1 Capsule by mouth in the morning. 30 Capsule 12/29/2023 Active documented as of this encounter (statuses as of 02/02/2024) Active Problems Problem Noted Date Diagnosed Date [...] as of this encounter (statuses as of 02/02/2024) Immunizations Name Administration Dates Next Due COVID-19 [...] encounter Miscellaneous Notes * Telephone Encounter - Marko Calloway MD - 02/02/2024 10:35 AM EDT Managed by another physician. * Telephone Encounter - Jess Newton LPN - 02/02/2024 10:22 AM EDTPending Prescriptions: Disp Refills dilTIAZem HCl ER 180 MG Oral Capsule Exten*30 Cap*0 Sig: Take 1 Capsule by mouth in the morning. * Telephone Encounter - Jess Newton LPN - 02/02/2024 10:19 AM EDT Refill request for diltiazem hcl ER 180 mg cap pended below: Last Refill:12/29/2023 Last seen:12/29/2023 Next Appt.:07/04/2024 * Telephone Encounter - Nishi Castillo CPhT - 02/02/2024 10:08 AM EDT Patient is up to date for office visits. Pending Prescriptions: Disp Refills dilTIAZem HCl ER 180 MG Oral Capsule Exte*30 Cap*0 Sig: Take 1 Capsule by mouth in the morning. Last Visit: 12/29/2023 (in office), Visit date not found (telemedicine) Next Visit: 07/04/2024 If no future appointments scheduled, and last appointment is greater than a year ago, please schedule patient for a follow-up appointment Last date the medication was ordered: 12/29/2023 Pharmacy: [facility] [address] Is this request for a controlled substance?No it is not controlled. Urine Drug Screen:No results found for this [...] Team (Late st Contact Info) Description 02/14/2024 9:45 AM EDT Office Visit Urogynecology [facility] 132 [place] [address] Andrae Joaquin MD [address] [place] [address] Nurse Ayaan Wetzel [address] [place] [address] 06/27/2024 10:50 AM EDT [facility] [address] [place] [phone] Hans Wetzel [address] [place] [address] 06/27/2024 11:00 AM EDT Imaging Radiology [facility] 1st [facility] 132 [facility] [place] [address] 07/01/2024 8:30 AM EST Cardiac Studies Cardiology, [facility] 132 [facility] [place] [address] [facility] 132 [facility] [place] [address] 07/04/2024 2:15 PM EST Office Visit Hematology/Oncology [facility] [address] [place] [address] Marko Calloway MD [address] [place] [address] Health Maintenance Due Date Last Done Comments Depression Screening 1949 Albumin/Creatinine Ratio 1955 Diabetic Eye Exam 1955 DTaP,Tdap,and Td Vaccines (1 - Tdap) 1956 VITAMIN D LEVEL ONCE IN A LIFETIME-USE SMARTSET# 27568 1977 DXA Scan 1987 Diabetic Foot Exam 10/03/2018 10/03/2017 COVID-19 Vaccine ( season) 2023 06/09/2023, 06/03/2022, 05/10/2021, Additional history exists Influenza Vaccine (FLU shot) (Season Ended) 2024 06/03/2022, 07/03/2017, 07/03/2017 HbA1c 05/18/2024 11/16/2023, 03/0 08/2023, 2023, Additional history exists B-12 10/19/2024 10/19/2023, 08/26/2022 Pneumococcal Vaccine: 65+ Years Completed 08/12/2017, 10/03/2015 Zoster Vaccines Completed 07/31/2020, 1009/2019, 09/02/2012 GARDASIL-HPV IMMUNIZATION SERIES Aged Out No longer eligible based on patient's age to complete this topic Hepatitis B Aged Out No longer eligi ble based on patient's age to complete this topic MENINGOCOCCAL (MENACTRA/MENVEO) Aged Out No longer eligible based on patient's age to complete this topic documented as of this encounter Medical Devices Implanted Type Area Global Consumer Sector Vice President Device Identifier Shelf Expiration Date Model / Serial / Lot Bard Peripheral Vascular Alyssa Vena Cava Filter Implanted:Qty: 1 on 08/23/2017 by Nato Singh DO at RADIOLOGY [facility] Abdomen 06/27/2020 [id number] / [id number] / [id number] Lens Li61ao 13.00mm 22.00 - [id number] - [id number] Implanted:Qty: 1 on 03/21/2023 by Augustine Duong MD at OR [facility] Left: Eye BAUSCH & LOMB 11/26/2027 [id number] / [id number] / [id number] Lens Li61ao 13.00mm 22.00 - [id number] - [id number] Implanted:Qty: 1 on 04/04/2023 by Augustine Duong MD at [facility] Right: Eye BAUSCH & LOMB 12/26/2027 [id number] / [id number] / [id number] documented as of this encounter Visit Diagnoses Diagnosis Cecal cancer (HCC) Malignant neoplasm of cecum Atrial fibrillation, unspecified type (HCC) documented in this encounter Advance Directives * [...] Power of Attor tobin? No Care Teams Obstetric Assistant Relationship Specialty Start Date End Date Avelina Douglas CRNP [address] [place] [address] PCP - General Nurse Practitioner 03/16/23 documented as of this encounter
--- OUTSIDE RECORDS SUMMARY | 2024-03-29 03:08 | External Medical Summary | Summary of Care ---
Author Name Unknown Organization [facility] Address [address] [facility] [place] [address] Phone [phone] Care Team Providers Care A R Collections Rep Name Role Phone Avelina Douglas EMILY Primary Care Provider Reason for Visit * Reason Onset Date Comments Med Request 02/02/2024 Encounter Details Date Type Department Care Team (Late st Contact Info) Description 02/02/2024 Telephone Hematology/Oncology [facility] 200 [facility] [place] [address] Marko Calloway MD 200 [facility] [place] [address] Med Request Allergies Active Allergy Reactions Criticality Noted Date [...] Active metFORMIN ER (GLUCOPHAGE XR) 500 MG US57Uwpogrppkwd:Di abetes mellitus type 2, insulin dependent (HCC) [...] encounter Miscellaneous Notes * Telephone Encounter - Keisha De CPhT - 02/02/2024 10:06 AM EDT [facility] calling for a refill on diltiazem. This was last prescribed by Hem/Onc. Transfer to specialty refill line. Thank you, Keisha De, Tech 1 Smoke Control Supervisor [facility] ([facility]) 02/02/2024, 10:07 AM documented in this encounter Plan of Treatment Upcoming Encounters Date Type Department Care Team (Late st Contact Info) Description 02/14/2024 9:45 AM EDT Office Visit Urogynecology [facility] [address] [place] [address] Andrae Joaquin MD [address] [place] [address] Nurse Rashard [facility] [address] [place] [address] 06/27/2024 10:50 AM EDT Laboratory [facility], [facility] [address] [place] [phone] Hans Wetzel [facility] [address] [place] [address] 06/27/2024 11:00 AM EDT Imaging [facility] [address] [place] [address] 07/01/2024 8:30 AM EST Cardiac Studies Cardiology, [facility] [address] [place] [address] [facility] [address] [place] [address] 07/04/2024 2:15 PM EST [facility] [address] [place] [address] Marko Calloway MD [address] [place] [address] Health Maintenance Due Date Last Done Comments Depression Screening 1949 Albumin/Creatinine Ratio 1955 Diabetic Eye Exam 1955 DTaP,Tdap,and Td Vaccines (1 - Tdap) 1956 VITAMIN D LEVEL ONCE IN A LIFETIME-USE SMARTSET# 15586 1977 DXA Scan 1987 Diabetic Foot Exam [...] this encounter Medical Devices Implanted Type Area Test Carrier Device Identifier Shelf Expiration Date Model / Serial / Lot Bard Peripheral Vascular Alyssa Vena Cava Filter Implanted:Qty: 1 on 08/23/2017 by Nato Singh DO at [facility] Abdomen 06/27/2020 [id number] / [id number] / [id number] Lens Li61ao 13.00mm 22.00 - [id number] - [id number] Implanted:Qty: 1 on 03/21/2023 by Augustine Duong MD at OR [facility] Left: Eye BAUSCH & LOMB 11/26/2027 [id number] 0 / [id number] / [id number] Lens Li61ao 13.00mm 22.00 - [id number] - [id number] Implanted:Qty: 1 on 04/04/2023 by Augustine Duong MD at [facility] Right: Eye BAUSCH & LOMB 12/26/2027 [id number] 0 / [id number] / [id number] documented as of this encounter Advance Directives [...] Power of Attor tobin? No Care Teams A R Collections Rep Relationship Specialty Start Date End Date Avelina Douglas CRNP [address] [place] [address] PCP - General Nurse Practitioner 03/16/23 documented as of this encounter
--- OUTSIDE RECORDS SUMMARY | 2024-03-29 03:08 | External Medical Summary ---
Author Name Unknown Address Unknown Organization K01:[facility] [place] 100 [facility] [address] Laboratory Report Ordering Provider Test Date Status BRENDA RAMSEY 02/08/2024 08:05:00 Final Observation Date Value Abnormality Reference (Units ) Status Color of Urine by Auto 02/08/2024 08:05:00 Light Yellow Colorless, Light Yellow, Yellow, Dark Yellow Final Clarity, Urine 02/08/2024 08:05:00 Slightly Cloudy Abnormal Clear Final Glucose [Mass/volume] in Urine by Automated test strip 02/08/2024 08:05:00 100 Abnormal Negative (mg/dL) Final Bilirubin.total [Presence] in Urine by Automated test strip 02/08/2024 08:05:00 Negative Negative Final Ketones [Mass/volume] in Urine by Automated test strip 02/08/2024 08:05:00 Negative Negative (mg/dL) Final Specific gravity, Urine 02/08/2024 08:05:00 1.019 1.003-1.030 Final Hemoglobin [Presence] in Urine by Automated test strip 02/08/2024 08:05:00 Small Abnormal Negative Final pH, Urine 02/08/2024 08:05:00 5.5 5.0-7.5 (Units) Final Protein [Mass/volume] in Urine by Automated test strip 02/08/2024 08:05:00 Trace Abnormal Negative (mg/dL) Final Urobilinogen [Mass/volume] in Urine by Automated test strip 02/08/2024 08:05:00 Normal Normal (mg/dL) Final Nitrite [Presence] in Urine by Automated test strip 02/08/2024 08:05:00 Negative Negative Final Leukocyte esterase [Presence] in Urine by Automated test strip 02/08/2024 08:05:00 Large Abnormal Negative Final RBC, Urine 02/08/2024 08:05:00 10-19 Abnormal 0-2 (/HPF) Final WBC, Urine 02/08/2024 08:05:00 50+ Abnormal 0-2 (/HPF) Final Bacteria [#/area] in Urine sediment by Microscopy high power field 02/08/2024 08:05:00 0-25 0-25 (/HPF) Final Leukocyte clumps [#/area] in Urine sediment by Microscopy high power field 02/08/2024 08:05:00 Present Abnormal None (/HPF) Final Yeast [#/area] in Urine sediment by Microscopy high power field 02/08/2024 08:05:00 Present Abnormal None (/HPF) Final CULTURE, URINE - [facility] 02/08/2024 08:05:00 Final Quantitative urine culture t o be performed Performing Location [facility] [place] [address] [facility] [address]
--- OUTSIDE RECORDS SUMMARY | 2024-03-29 03:08 | External Medical Summary ---
Author Name Unknown Address Unknown Organization K01:[facility] [place] - [address] [place] [address] Laboratory Report Ordering Provider Test Date Status BRENDA RAMSEY 02/08/2024 08:05:00 Final Observation Date Value Abnormality Reference (Units ) Status Ferritin 02/08/2024 08:05:00 37 13-150 (ng /mL) Final Postmenopausal women have hi gher ferritin levels than pre-menopausal women. The above reference interval is based on pre-menopausal women. Performing Location LABORATORY [facility] - [address] [place] [address]
--- OUTSIDE RECORDS SUMMARY | 2024-03-29 03:08 | External Medical Summary | Summary of Care ---
Author Name Unknown Organization [facility] Address [address] [place] [facility] [place] [address] Phone [phone] Care Team Providers Care Microfilm Machine Operator Name Role Phone Avelina Douglas EMILY Primary Care Provider Reason for Visit * Reason Onset Date Comments Test Results 02/12/2024 Encounter Details Date Type Department Care Team (Late st Contact Info) Description 02/12/2024 Telephone Hematology/Oncology [facility] 200 [facility] [place] [address] Marko Calloway MD 200 [place] [address] Test Results Allergies Active Allergy Reactions Criticality [...] Active metFORMIN ER (GLUCOPHAGE XR) 500 MG HK91Mbfgwtoomaa:D iabetes mellitus type 2, insulin dependent (HCC) [...] EDT Left patient a message on her [employer], return phone number provided. My G sent. [...] 9:25 AM EDT Office Visit Urogynecology [facility] [address] [place] [address] Andrae Joaquin MD [address] [place] [address] Nurse Ayaan Wetzel [address] [place] [address] 06/27/2024 10:50 AM EDT Laboratory Laboratory, [facility] 132 [place] [phone] Hans Wetzel 132 [place] [address] 06/27/2024 11:00 AM EDT Imaging Radiology [facility] 1st [facility] [address] [place] [address] 07/01/2024 8:30 AM EST Cardiac Studies Cardiology, [facility] 132 [facility] [place] [address] [facility] 132 [place] [address] 07/04/2024 2:15 PM EST Office Visit Hematology/Oncology [facility] 200 [facility] [place] [phone] Marko Calloway MD 200 [facility] [place] [address] Health Maintenance Due Date Last Done Comments Depression Screening 1949 Albumin/Creatinine Ratio 1955 Diabetic Eye Exam 1955 DTaP,Tdap,and Td Vaccines (1 - Tdap) 1956 VITAMIN D LEVEL ONCE IN A LIFETIME-USE SMARTSET# [id number] 1977 DXA Scan 1987 Diabetic Foot Exam [...] this encounter Medical Devices Implanted Type Area Saddle Tree Stitcher Device Identifier Shelf Expiration Date Model / Serial / Lot Bard Peripheral Vascular Alyssa Vena Cava Filter Implanted:Qty: 1 on 08/23/2017 by Nato Singh DO [place] [facility] [place] 06/27/2020 [id number] / [id number] / [id number] Lens Li61ao 13.00mm 22.00 - [id number] - [id number] Implanted:Qty: 1 on 03/21/2023 by Augustine Duong MD at OR [facility] Left: Eye BAUSCH & LOMB 11/26/2027 [id number] 0 / [id number] / [id number] Lens Li61ao 13.00mm 22.00 - [id number] - [id number] Implanted:Qty: 1 on 04/04/2023 by Augustine Duong MD at OR [facility] Right: Eye BAUSCH & LOMB 12/26/2027 [id number] 0 / [id number] / [id number] documented as of this encounter Advance Directives [...] Power of Attor tobin? No Care Teams Microfilm Machine Operator Relationship Specialty Start Date End Date Avelina Douglas CRNP [address] [place] [address] PCP - General Nurse Practitioner 03/16/23 documented as of this encounter
--- OUTSIDE RECORDS SUMMARY | 2024-03-29 03:08 | External Medical Summary | Summary of Care ---
Author Name Unknown Organization [facility] Address [address] [place] [place] [address] Phone [phone] Care Team Providers Care Import Clerk Name Role Phone Avelina Douglas EMILY Primary Care Provider Reason for Visit * Reason Onset Date Comments Test Results 02/12/2024 Encounter Details Date Type Department Care Team (Late st Contact Info) Description 02/12/2024 Telephone Hematology/Oncology [facility] 200 [facility] [place] [address] Marko Calloway MD 200 [place] [address] Test Results Allergies Active Allergy Reactions Criticality Noted Date Comments Levofloxacin Other (Please comment) 05/26/2017 Cramping pains Nitrofurantoin Nausea/vomiting,Othe r (Please comment) 08/26/2022 Dizziness Propofol Nausea/vomiting 01/03/2018 documented as of this encounter (statuses as of 02/13/2024) Medications Medication Sig Dispensed Refills Start Date [...] Active metFORMIN ER (GLUCOPHAGE XR) 500 MG SC03Elriorijyqa:D iabetes mellitus type 2, insulin dependent (HCC) [...] as of this encounter (statuses as of 02/13/2024) Active Problems Problem Noted Date Diagnosed Date [...] as of this encounter (statuses as of 02/13/2024) Immunizations Name Administration Dates Next Due COVID-19 [...] 02/14/2024 9:25 AM EDT Office Visit Urogynecology Lisandro Wetzel 132 [place] [address] Andrae Joaquin MD [address] [place] [address] Nurse Ayaan Wetzel 132 [place] [address] 06/27/2024 10:50 AM EDT [facility] 132 [place] [phone] [facility], Lab [facility] 132 [facility] [place] [address] 06/27/2024 11:00 AM EDT Imaging Radiology [facility] [address] [place] [address] 07/01/2024 8:30 AM EST Cardiac Studies Cardiology, [facility] 132 [facility] [place] [address] [place], [facility] 132 [facility] [place] [address] 07/04/2024 2:15 PM EST Office Visit Hematology/Oncology [facility] 200 [facility] [place] [phone] Marko Calloway MD 200 [facility] [place] [address] Health Maintenance Due Date Last Done Comments Depression Screening 1949 Albumin/Creatinine Ratio 1955 Diabetic Eye Exam 1955 DTaP,Tdap,and Td Vaccines (1 - Tdap) 1956 VITAMIN D LEVEL ONCE IN A LIFETIME-USE SMARTSET# [id number] 1977 DXA Scan 1987 Diabetic Foot Exam 10/03/2018 10/03/2017 COVID-19 Vaccine ( season) 2023 06/03/2022, 05/10/2021, 10/25/2020, Additional history exists Influenza Vaccine (FLU shot) (Season Ended) 2024 06/03/2022, 07/03/2017, 07/03/2017 HbA1c 05/18/2024 11/16/2023, 03/0 08/2023, 2023, Additional history exists B-12 10/19/2024 10/19/2023, 08/26/2022 Pneumococcal Vaccine: 65+ Years Completed 08/12/2017, 10/03/2015 Zoster Vaccines Completed 07/31/2020, 10/0 09/2019, 09/02/2012 GARDASIL-HPV IMMUNIZATION SERIES Aged Out No longer eligible based on patient's age to complete this topic Hepatitis B Aged Out No longer eligi ble based on patient's age to complete this topic MENINGOCOCCAL (MENACTRA/MENVEO) Aged Out No longer eligible based on patient's age to complete this topic documented as of this encounter Medical Devices Implanted Type Area Packing Floor Worker Device Identifier Shelf Expiration Date Model / Serial / Lot Bard Peripheral Vascular Alyssa Vena Cava Filter Implanted:Qty: 1 on 08/23/2017 by Nato Singh DO at RADIOLOGY [facility] [place] Abdomen 06/27/2020 [id number] / [id number] / [id number] Lens Li61ao 13.00mm 22.00 - [id number] - [id number] Implanted:Qty: 1 on 03/21/2023 by Augustine Duong MD at OR [facility] Left: Eye BAUSCH & LOMB 11/26/2027 [id number] 0 / [id number] 2 / [id number] Lens Li61ao 13.00mm 22.00 - [id number] - [id number] Implanted:Qty: 1 on 04/04/2023 by Augustine Duong MD at OR [facility] Right: Eye BAUSCH & LOMB 12/26/2027 [id number] 0 / [id number] / [id number] documented as of this encounter Advance Directives [...] Power of Attor tobin? No Care Teams Import Clerk Relationship Specialty Start Date End Date Avelina Douglas CRNP [address] [address] PCP - General Nurse Practitioner 03/16/23 documented as of this encounter
--- OUTSIDE RECORDS SUMMARY | 2024-03-29 03:08 | External Medical Summary | Summary of Care ---
Author Name Unknown Organization [facility] Address [address] [place] [address] Phone [phone] Care Team Providers Care Mechanical Manager Name Role Phone Avelina Douglas EMILY Primary Care Provider Reason for Visit * Reason Onset Date Comments Medication Refill 02/02/2024 Encounter Details Date Type Department Care Team (Late st Contact Info) Description 02/02/2024 Refill Hematology/Oncology [facility] 200 [facility] [place] [address] Braulio Calloway MD 200 [place] [address] Cecal cancer (HCC); Atrial fibrillation, unspecified type (HCC) Allergies Active Allergy Reactions Criticality Noted Date Comments Levofloxacin Other (Please comment) 05/26/2017 Cramping pains Nitrofurantoin Nausea/vomiting,Othe r (Please comment) 08/26/2022 Dizziness Propofol Nausea/vomiting 01/03/2018 documented as of this encounter (statuses as of 02/05/2024) Medications Medication Sig Dispensed Refills Start Date [...] Active metFORMIN ER (GLUCOPHAGE XR) 500 MG ON87Woanrbdchnv:Di abetes mellitus type 2, insulin dependent (HCC) [...] as of this encounter (statuses as of 02/05/2024) Active Problems Problem Noted Date Diagnosed Date [...] as of this encounter (statuses as of 02/05/2024) Immunizations Name Administration Dates Next Due COVID-19 [...] Telephone Encounter - Jess Newton LPN - 02/05/2024 8:12 AM EDTRefused Prescriptions: Disp Refills dilTIAZem HCl ER 180 MG Oral Capsule Exten*30 Cap*0 Sig: Take 1Capsule by mouth in the morning.Refused By: BRAULIO CALLOWAY for Refusal: Managed by another ph ysician * Telephone Encounter - Braulio Calloway MD - 02/02/2024 10:35 AM EDT [...] date the medication was ordered: 12/29/2023 Pharmacy: [facility] [address] Is this request for a controlled [...] 02/14/2024 9:45 AM EDT Office Visit Urogynecology [address] [place] [address] Andrae Joaquin MD [address] [place] [address] [facility] [address] [place], [place] [address] 06/27/2024 10:50 AM EDT Laboratory Laboratory, [facility] 132 [facility] [place] [address] [facility] 132 [facility] [address] 06/27/2024 11:00 AM EDT Imaging Radiology [facility] [address] [facility] 132 [facility] [place] [address] 07/01/2024 8:30 AM EST Cardiac Studies Cardiology, [address] [place] [address] [place] 132 [facility] [place] [address] 07/04/2024 2:15 PM EST Office Visit Hematology/Oncology [facility] 200 [facility] [place] [address] Braulio Calloway MD 200 [place] [address] Health Maintenance Due Date Last Done Comments Depression Screening 1949 Albumin/Creatinine Ratio 1955 Diabetic Eye Exam 1955 DTaP,Tdap,and Td Vaccines (1 - Tdap) 1956 VITAMIN D LEVEL ONCE IN A LIFETIME-USE SMARTSET# [id number] 1977 DXA Scan 1987 Diabetic Foot Exam [...] this encounter Medical Devices Implanted Type Area Hot Mill Observer Device Identifier Shelf Expiration Date Model / Serial / Lot Bard Peripheral Vascular Cook Vena Cava Filter Implanted:Qty: 1 on 08/23/2017 by Nato Singh DO at RADIOLOGY [facility] Abdomen 06/27/2020 [id number] / [id number] / [id number] Lens Li61ao 13.00mm 22.00 - [id number] - [id number] Implanted:Qty: 1 on 03/21/2023 by Augustine Duong MD at OR [facility] Left: Eye BAUSCH & LOMB 11/26/2027 [id number] 0 / [id number] Lens Li61ao 13.00mm 22.00 - [id number] - [id number] Implanted:Qty: 1 on 04/04/2023 by Augustine Duong MD at OR [facility] Right: Eye BAUSCH & LOMB 12/26/2027 [id number] 0 / [id number] / [id number] documented as of this encounter Visit Diagnoses [...] Power of Attor tobin? No Care Teams Mechanical Manager Relationship Specialty Start Date End Date Avelina Douglas CRNP [address] [place] [address] PCP - General Nurse Practitioner 03/16/23 documented as of this encounter
--- OUTSIDE RECORDS SUMMARY | 2024-03-29 03:08 | External Medical Summary | Summary of Care ---
Author Name Unknown Organization [facility] Address 100 [address] [facility] [place] [address] Phone [phone] Care Team Providers Care Computational Sciences Professor Name Role Phone Avelina Douglas EMILY Primary Care Provider Reason for Visit * Reason Onset Date Comments Test Results 02/09/2024 Encounter Details Date Type Department Care Team (Late st Contact Info) Description 02/09/2024 Telephone Urogynecology [facility] [address] [place] [address] Andrae Joaquin MD [address] [place] [...] Active metFORMIN ER (GLUCOPHAGE XR) 500 MG AB62Khlwifhlpqb:D iabetes mellitus type 2, insulin dependent (HCC) [...] 02/14/2024 9:25 AM EDT Office Visit Urogynecology [facility] 132 [facility] [place] [address] Andrae Joaquin MD [address] [place] [address] Nurse Rashard Urogyn [facility] [address] [place] [address] 06/27/2024 10:50 AM EDT Laboratory Laboratory, [facility] 132 [facility] [place] [phone] [facility] [address] [place] [address] 06/27/2024 11:00 AM EDT Imaging Radiology [facility] 1st [facility] 132 [facility] [place] [address] 07/01/2024 8:30 AM EST Cardiac Studies Cardiology, [facility] 132 [facility] [place] [address] [facility]a [facility] 132 [facility] [place] [address] 07/04/2024 2:15 PM EST Office Visit Hematology/Oncology Mae Bernardo [place] [address] [place] [phone] Marko Calloway MD [address] [place] [address] Health Maintenance Due Date Last Done Comments Depression Screening 1949 Albumin/Creatinine Ratio 1955 Diabetic Eye Exam 1955 DTaP,Tdap,and Td Vaccines (1 - Tdap) 1956 VITAMIN D LEVEL ONCE IN A LIFETIME-USE SMARTSET# [id number] 1977 DXA Scan 1987 Diabetic Foot Exam [...] this encounter Medical Devices Implanted Type Area Turret Lathe Set Up Operator Device Identifier Shelf Expiration Date Model / Serial / Lot Bard Peripheral Vascular Alyssa Vena Cava Filter Implanted:Qty: 1 on 08/23/2017 [place] Nato Singh DO [place] [facility] 06/27/2020 [id number] / [id number] / [id number] Lens Li61ao 13.00mm 22.00 - [id number] - [id number] Implanted:Qty: 1 on 03/21/2023 by Augustine Duong MD at OR [facility] Left: Eye BAUSCH & LOMB 11/26/2027 [id number] 0 [id number] Lens Li61ao 13.00mm 22.00 - [id number] - [id number] Implanted:Qty: 1 on 04/04/2023 by Augustine Duong MD at [facility] Right: Eye BAUSCH & LOMB 12/26/2027 [id number] 0 / [id number] / [id number] documented as of this encounter Advance Directives [...] Power of Attor tobin? No Care Teams Computational Sciences Professor Relationship Specialty Start Date End Date Avelina Douglas CRNP [address] [place] [address] PCP - General Nurse Practitioner 03/16/23 documented as of this encounter
--- OUTSIDE RECORDS SUMMARY | 2024-03-29 03:08 | External Medical Summary | Summary of Care ---
Author Name Unknown Organization [facility] Address [address] [facility] [place] [address] Phone [phone] Care Team Providers Care World Designer Name Role Phone Avelina Douglas EMILY Primary Care Provider Reason for Visit * Reason Onset Date Comments Test Results 02/09/2024 Encounter Details Date Type Department Care Team (Late st Contact Info) Description 02/09/[address] [facility] [address] [place] [address] Andrae Joaquin MD [address] [place] [...] Active metFORMIN ER (GLUCOPHAGE XR) 500 MG ZN71Ohgnxdevdty:D iabetes mellitus type 2, insulin dependent (HCC) [...] 02/14/2024 9:25 AM EDT Office Visit Urogynecology [facility] 132 [facility] [place] [address] Andrae Joaquin MD [address] [place] [address] Nurse Rashard Urogyn [facility] [address] [place] [address] 06/27/2024 10:50 AM EDT Laboratory Laboratory, [facility] 132 [facility] [place] [phone] [facility] [address] [address] 06/27/2024 11:00 AM EDT Imaging Radiology [facility] 1st [facility] 132 [facility] [place] [address] 07/01/2024 8:30 AM EST Cardiac Studies Cardiology, [facility] 132 [facility] [place] [address] K[facility]a [facility] 132 [facility] [place] [address] 07/04/2024 2:15 PM EST Office Visit Hematology/Oncology Mae Bernardo [place] [address] [place] [phone] Marko Calloway MD [address] [place] [address] Health Maintenance Due Date Last Done Comments Depression Screening 1949 Albumin/Creatinine Ratio 1955 Diabetic Eye Exam 1955 DTaP,Tdap,and Td Vaccines (1 - Tdap) 1956 VITAMIN D LEVEL ONCE IN A LIFETIME-USE SMARTSET# [id number] 1977 DXA Scan 1987 Diabetic Foot Exam [...] this encounter Medical Devices Implanted Type Area Assistant Manager Trainee Device Identifier Shelf Expiration Date Model / Serial / Lot Bard Peripheral Vascular Alyssa Vena Cava Filter Implanted:Qty: 1 on 08/23/2017 by Nato Singh DO [place] [facility] [place]domen 06/27/2020 [id number] / [id number] / [id number] Lens Li61ao 13.00mm 22.00 - [id number] - [id number] Implanted:Qty: 1 on 03/21/2023 by Augustine Duong MD at OR [facility] Left: Eye BAUSCH & LOMB 11/26/2027 [id number] 0 [id number] Lens Li61ao 13.00mm 22.00 - [id number] - [id number] Implanted:Qty: 1 on 04/04/2023 by Augustine Duong MD at [facility] Right: Eye BAUSCH & LOMB 12/26/2027 [id number] 0 / [id number] / [id number] documented as of this encounter Advance Directives [...] Power of Attor tobin? No Care Teams World Designer Relationship Specialty Start Date End Date Avelina Douglas CRNP [address] [place] [address] PCP - General Nurse Practitioner 03/16/23 documented as of this encounter
--- OUTSIDE RECORDS SUMMARY | 2024-03-29 03:08 | External Medical Summary | Summary of Care ---
Author Name Unknown Organization [facility] Address [address] [facility] [place] [address] Phone [phone] Care Team Providers Care Yellow Pages Space Salesperson Name Role Phone Avelina Douglas EMILY Primary Care Provider Reason for Visit * Reason Onset Date Comments Test Results 02/09/2024 Encounter Details Date Type Department Care Team (Late st Contact Info) Description 02/09/2024 Telephone Urogynecology [facility] [address] [place] [id number] Andrae Joaquin MD [address] [place] [address] Test Results Allergies Active Allergy Reactions Criticality Noted Date Comments Levofloxacin Other (Please comment) 05/26/2017 Cramping pains Nitrofurantoin Nausea/vomiting,Othe r (Please comment) 08/26/2022 Dizziness Propofol Nausea/vomiting 01/03/2018 documented as of this encounter (statuses as of 02/09/2024) Medications Medication Sig Dispensed Refills Start Date [...] Active metFORMIN ER (GLUCOPHAGE XR) 500 MG [id number]:Di abetes mellitus type 2, insulin dependent (HCC) [...] as of this encounter (statuses as of 02/09/2024) Active Problems Problem Noted Date Diagnosed Date [...] as of this encounter (statuses as of 02/09/2024) Immunizations Name Administration Dates Next Due COVID-19 [...] encounter Miscellaneous Notes * Telephone Encounter - Sheri Luna RN [...] 02/14/2024 9:45 AM EDT Office Visit Urogynecology [facility] [address] [place] [address] Andrae Joaquin MD [address] [place] [address] Nurse Ayaan Wetzel [address] [place] [address] 06/27/2024 10:50 AM EDT Laboratory Laboratory, [facility] [address] [place] [id number] Hans Wetzel [facility] [address] [place] [address] 06/27/2024 11:00 AM EDT Imaging [facility] [address] [place] [address] 07/01/2024 8:30 AM EST Cardiac Studies Cardiology, [facility] [address] [place] [address] K[facility]a [facility] [address] [place] [address] 07/04/2024 2:15 PM EST Office Visit Hematology/Oncology [facility] [address] [facility] [place] [phone] Marko Calloway MD [address] [facility] [place] [address] Health Maintenance Due Date Last Done Comments Depression Screening 1949 Albumin/Creatinine Ratio 1955 Diabetic Eye Exam 1955 DTaP,Tdap,and Td Vaccines (1 - Tdap) 1956 VITAMIN D LEVEL ONCE IN A LIFETIME-USE SMARTSET# [id number] 1977 DXA Scan 1987 Diabetic Foot Exam [...] this encounter Medical Devices Implanted Type Area Office Correspondent Device Identifier Shelf Expiration Date Model / Serial / Lot Bard Peripheral Vascular [place] Vena Cava Filter Implanted:Qty: 1 on 08/23/2017 by Nato Singh, at [place] [facility] [place] 06/27/2020 [id number] / [id number] / [id number] Lens Li61ao 13.00mm 22.00 - [id number] - [id number] Implanted:Qty: 1 on 03/21/2023 by Augustine Duong MD at OR [facility] Left: Eye [employer] 11/26/2027 [id number] / [id number] / [id number] Lens Li61ao 13.00mm 22.00 - [id number] - [id number] Implanted:Qty: 1 on 04/04/2023 by Augustine Duong MD at OR [facility] Right: Eye [employer] 12/26/2027 [id number] / [id number] / [id number] documented as of this encounter Advance Directives [...] Power of Attor tobin? No Care Teams Yellow Pages Space Salesperson Relationship Specialty Start Date End Date Avelina Douglas CRNP [address] [place] [address] PCP - General Nurse Practitioner 03/16/23 documented as of this encounter
[2024-03-29] MEDS: METOPROLOL SUCC 50MG EXT REL TAB PO SCH (08:23)
[2024-03-29] MEDS: FAMOTIDINE 20 MG TAB PO SCH (08:23)
[2024-03-29] MEDS: APIXABAN 2.5 MG TAB PO SCH (08:24)
[2024-03-29] MEDS: ESCITALOPRAM OXALATE 20 MG TAB PO SCH (08:24)
[2024-03-29] MEDS: dilTIAZem HCL 180 MG CAPCR PO SCH (08:24)
[2024-03-29] MEDS: LOSARTAN POTASSIUM 25 MG TAB PO SCH (08:24)
[2024-03-29] MEDS: methIMAzole 5 MG TABLET PO SCH (08:24)
[2024-03-29] MEDS: VIBEGRON 75 MG TAB PO SCH (08:24)
[2024-03-29] MEDS: oxyCODONE HCL IR 5 MG TAB (IMMEDIATE RELEASE) PO PRN (11:00)
--- NOTE | 2024-03-29 14:05 | Hospitalist Progress Note ---
Date of Service March 29, 2024 Assessment & Plan (1) Closed lumbar vertebral fracture: Plan: 88yo female s/p ground level fall resulting in acute L2 superior endplate fracture without retropulsion. Had significant pain while trying to dress herself at home. Currently lives independently at [facility]. -Pain control with Tylenol 1gm PO TID scheduled and Oxycodone 5mg po q 6 hours as needed -Apply ice prn -Colace and Miralax as needed -Orthotic ordered for Lumbar Spine -Ortho consulted; Likely for outpatient follow up- will await callback -PT/OT evaluations requested: Follow up recommendations - patient previously receiving PT at home at [facility] (2) Paroxysmal atrial fibrillation: Plan: Paroxysmal Atrial Fibrillation: Chronic. Stable. -AC: Patient anticoagulated on Apixaban. -Continue Metoprolol 100mg po BID -Continue Diltiazem 180mg po qAM -Continue Apixaban 2.5mg po BID (3) Diabetes mellitus, type 2: Plan: Diabetes: Chronic. Overall well controlled - last HgbA1C on 11/18/23=5.7. Patient is compliant with home Metformin as well as Lantus 16u qHS -Hold Metformin -Lantus 14u qHS -ISS -Will further titrate -Goal blood sugar 110 - 140 (4) Dyslipidemia: Plan: Hyperlipidemia: Chronic. Stable. -Continue Atorvastatin 20mg po qAM (5) Hyperthyroidism: Plan: Hyperthyroidism: Chronic -Continue Methimazole 5mg po BID 4 days weekly (Monday, Monday, Monday and Monday) -Needs outpatient follow up and lab monitoring (6) Hypertension: Plan: Hypertension: Chronic. -Continue Losartan -Continue Metoprolol (7) Anxiety: Plan: Depression/Anxiety: Chronic. Stable -Continue Escitalopram 20mg po qAM -Alprazolam PRN qHS Plan DVT ppx Ppx - On Apixaban. GI ppx: On Famotidine Code - DNR/DNI per patient Dispo - Observation to medical Called and updated daughter Charley over the phone Admission and Anticipated Discharge Date Admission Date: March 28, 2024 Subjective Patient seen and evaluated bedside Patient reports falling down after her knee gave out. She reports she has had history of her knee giving out in the past. She was previously wearing a brace for knee support but stopped 8 months ago. Yesterday she felt her knee give out prompting her to fall to the ground and hit her back. She currently lives independently at [facility]- works with PT once a week there Reports pain well controlled with tylenol Review of Systems Review of Systems: ROS negative unless otherwise indicated in subjective Physical Exam Physical Exam: General: patient resting comfortably, NAD, non-toxic in appearance, AA&O x 4 Skin: warm, dry, skin tear to left elbow with dressing in place HEENT: NC/AT, PERRL, EOMI, anicteric sclera, conjunctiva without injection, external ear normal to inspection and nontender, nares patent, moist mucus membranes Heart: +S1/S2, regular, no m/r/g Lungs: equal air entry bilaterally, no rales/rhonchi/wheezes Abd: +BS, soft, NT/ND, no masses/organomegaly/ascites Ext: warm, 2+ pulses in UE/LE bilaterally, no clubbing/cyanosis or edema Neuro: nonfocal, patient AA&O x 4, speech intact, no facial droop, moving all extremities on command with equal strength 5/5 Results & Data Results & Data Vital Signs (Past 12 Hours) Vital Signs Temp Pulse Resp BP Pulse Ox O2 Del Method 03/29/24 07:27 36.6 C 73 18 156/85 H 94 Room Air PG Care Time/CCT Total # of Minutes Spent Total Time Spent with Patient: Total time spent is greater than 50% in coordination of care (as documented) at patient's floor/unit and/or counseling patient: Coding Level of Care Code 22417 SUB INP/OBS CARE 2/35MIN Diagnoses Closed lumbar vertebral fracture S32.029A Encounter type: initial encounter Fracture morphology: unspecified fracture morphology Lumbar vertebra fracture level: L2 Paroxysmal atrial fibrillation I48.0 Diabetes mellitus, type 2 E11.9 Dyslipidemia E78.5 Hyperthyroidism E05.90 Hypertension I10 Anxiety F41.9 (1) Closed lumbar vertebral fracture Encounter type: initial encounter Fracture morphology: unspecified fracture morphology Lumbar vertebra fracture level: L2 Qualified Code(s): S32.029A - Unspecified fracture of second lumbar vertebra, initial encounter for closed fracture
[2024-03-29] MEDS ORDERED: PHARMACY GLYCEMIC MGMT CONSULT PRN (14:23)
--- NOTE | 2024-03-29 14:35 | Pharmacy Report ---
Pharmacy Glycemic Short Note 2 - Date of Service March 29, 2024 - Glycemic Short BSG Results (Last 24 hours): 03/28/24 03/28/24 03/29/24 20:36 23:38 07:24 Glucose 246 H POC Glucose 246 H 175 H 03/29/24 11:39 Glucose POC Glucose 237 H OUTPATIENT ANTIDIABETIC REGIMEN: * Metformin 500 mg PO BIDM * Lantus 16 units SC HS * HbA1c pending for 03/30/24 ASSESSMENT: * 88 yo F admitted on 03/28/24 secondary to fall and subsequent L2 fracture. Pharmacy has been consulted to assist with inpatient glycemic management. Patient is a Type 2 diabetic as an outpatient. Please refer to outpatient regimen and most recent HbA1c above. * Ordered and tolerating a T2DM diet. BSG was 246 mg/dL following admission last evening. Given 14 units of insulin and ordered ACHS Novolog with goal range of 110-140, CF of 40 and CR of 20 (weight/stress 1-2). * Fasting BSG this AM was 175 mg/dL. Lunchtime BSG increased to 237 mg/dL which prompted this glycemic consult. No other stressors on board. * Will increase basal to home dose of 16 units nightly. Novolog will be tightened to reflect weight/stress of 3. Ordered an updated HbA1c for tomorrow morning. PLAN FOR INPATIENT GLYCEMIC CONTROL: * Hold outpatient oral diabetes medications * Basal insulin * Lantus 16 units SC HS * Bolus insulin * NovoLog per scale ACHS or Q6hrs while NPO * Goal Range: Low 110 mg/dL - High 140 mg/dL * Correction Factor: 25 mg/dL/unit * Nutritional / Prandial insulin per carb ratio of 1 unit per 8 grams CHO consumed
[2024-03-29] MEDS: ALPRAZolam 0.25 MG TABLET PO SCH (21:23)
[2024-03-29] MEDS: LANTUS PER UNIT CHARGE SQ SCH (21:57)
[2024-03-30 08:00] LABS: Estimated Average Glucose 209 mg/dl; Hemoglobin A1C 8.9 % (4.5-5.6)
--- NOTE | 2024-03-30 10:50 | Orthopedic Consultation ---
Date of Consultation March 30, 2024 Assessment & Plan (1) Closed lumbar vertebral fracture: Assessment L2 compression fracture. Plan at this time a discussion with this patient regarding her diagnosis and treatment plan. Majority of these fractures do heal on their own without surgical intervention. We will reassess her in the office in the next few weeks. If she continues to have pain and is not improving we could consider kyphoplasty procedure. She is on various medications including blood thinners which would need to be discontinued before surgery. She is comfortable with observation only and hoping to avoid surgery. History of Present Illness Reason for Consultation: L2 compression fracture Attending Physician: Jose Carlos Ernandez, History of Present Illness This is a very pleasant 88-year-old female who presents to the hospital after a fall at home. She has been diagnosed with an L2 compression fracture. She describes her pain mostly lumbar spine. Denies any numbness or tingling in the lower extremities. She is tolerating modest amounts of physical therapy as well as her brace. Allergies Allergy/AdvReac Type Severity Reaction Status Date / Time levofloxacin AdvReac Intermediate Muscle Verified 03/28/24 22:23 pain (difficulty with walking) nitrofurantoin AdvReac Intermediate headache/GI Verified 03/28/24 22:23 [From Macrobid] upset/nausea Home Medications Medication Instructions Recorded Confirmed Type alprazolam 0.25 mg tablet (Xanax) 0.25 mg PO HS Anxiety 09/02/18 03/28/24 History insulin glargine 100 unit/mL 16 unit subcut HS 09/02/18 03/28/24 History subcutaneous solution (Lantus U-100 Insulin) metformin 500 mg tablet 500 mg PO BID 09/02/18 03/28/24 History acetaminophen 500 mg tablet 1,000 mg PO Q6H PRN Pain 06/03/21 03/28/24 History vibegron 75 mg tablet (Gemtesa) 75 mg PO DAILY #90 tabs 03/01/23 03/28/24 Rx Estrogen Cream 1 applic vaginal DIRECTED PRN 06/09/23 03/28/24 History .dryness, pain losartan 25 mg tablet 25 mg PO QAM #30 tabs 06/20/23 03/28/24 Rx metoprolol succinate 100 mg 100 mg PO BID #60 tabs 06/20/23 03/28/24 Rx tablet,extended release 24 hr solifenacin 5 mg tablet (Vesicare) 5 mg PO DAILY 07/25/23 03/28/24 History methimazole 5 mg tablet 5 mg PO .BID 4DAYS A WEEK 11/18/23 03/28/24 History diltiazem HCl 180 mg 180 mg PO QAM #30 caps 11/30/23 03/28/24 Rx capsule,extended release 24 hr escitalopram oxalate 20 mg tablet 20 mg PO QAM #30 tabs 11/30/23 03/28/24 Rx famotidine 20 mg tablet 20 mg PO BID #60 tabs 11/30/23 03/28/24 Rx apixaban 5 mg tablet (Eliquis) 2.5 mg PO BID 03/28/24 03/28/24 History Patient History Medical History (Updated 03/28/24 @ 21:03 by Rochelle Schaffer DO) Anemia Blood transfusions several years ago (r/t DVTs/acute blood loss) Presence of IVC filter Chronic back pain Osteoarthritis Kidney stones Pancreatitis Remote hx Diabetes mellitus, type 2 IDDM Depression Anxiety BCC (basal cell carcinoma) Hyperlipidemia DVT (deep venous thrombosis) RLE/LLE 2016- developed 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 Holliday Hypertension Surgical History (Updated 03/28/24 @ 21:03 by Rochelle Schaffer DO) Status post right knee replacement History of esophagogastroduodenoscopy (EGD) History of cystoscopy Cystoscopy, b/l ureteronephroscopy, laser lithotripsy (11/07/19): LMA#4 iGel, atraumatic insertion at [facility] History of cardiac cath 2011 > no stents PONV (postoperative nausea and vomiting) History of total knee replacement Right History of colonoscopy History of appendectomy Status post Mohs surgery S/P epidural steroid injection History of cardiac radiofrequency ablation S/P cardiac pacemaker procedure Hx of tonsillectomy History of hysterectomy MARC and BSO Family History Brother Family history of diabetes mellitus Brother Family history of diabetes mellitus Sister Family history of diabetes mellitus Grandmother (Paternal) Family history of diabetes mellitus Grandmother (Maternal) Breast cancer Denies family history of Ovarian cancer Colorectal cancer Social History Smoking Status: Never smoker Second Hand Exposure: No; Do You Dip or Chew Tobacco: No; Hx Alcohol Use: No Hx Substance Use: No Preferred Language: Swiss Communication Ability: Effective Visual Impairment: No Limitations Congressional Representative Required: No Beliefs That Will Affect Care: None marital status: / Current Living Situation: Alone Current Living Situation Comment: independent living current occupational status: retired Other Information That Helps Us Care for You: No Feels Safe at Home: Yes Safety Concerns: Feels Safe At This Time Assistive Devices: Walker Physical Exam Physical Exam: On exam she does appear comfortable. She is cooperative. Is good strength testing lower extremities. Sensory is symmetric and intact. Results & Data Vital Signs (Past 12 Hours) Vital Signs Temp Pulse Resp BP Pulse Ox O2 Del Method 03/30/24 07:10 36.5 C 72 18 169/81 H 92 Room Air (1) Closed lumbar vertebral fracture Encounter type: initial encounter Fracture morphology: unspecified fracture morphology Lumbar vertebra fracture level: L2 Qualified Code(s): S32.029A - Unspecified fracture of second lumbar vertebra, initial encounter for closed fracture
--- NOTE | 2024-03-30 12:01 | Discharge Summary ---
Discharge Summary Date of Service March 30, 2024 Principal Dx & Hospital Course #1 = Principal Diagnosis (1) Closed lumbar vertebral fracture: 88yo female s/p ground level fall resulting in acute L2 superior endplate fracture without retropulsion. Had significant pain while trying to dress herself at home. Currently lives independently at [facility]. -Pain control with Tylenol 1gm PO TID scheduled. Required a dose of Oxycodone 5mg po prn- however did not require further dosing. -Colace and Miralax as needed -Orthotic Lumbar Spine ordered ad delivered. Patient given instructions on proper wearing and use -Patient instructed on refraining from lifting -Instructed to wear orthotic while ambulatory -Ortho consulted; Dr. Whitley- no operative management recommended at present. Will follow up as an outpatient if worsening noted. Patient and family given instructions to follow up as an outpatient. -PT/OT evaluations continue PT at home at [facility]. Script signed and discussed with Case management/SW (2) Paroxysmal atrial fibrillation: Paroxysmal Atrial Fibrillation: Chronic. Stable. -AC: Patient anticoagulated on Apixaban. -Continued Metoprolol 100mg po BID -Continued Diltiazem 180mg po qAM -Continued Apixaban 2.5mg po BID (3) Diabetes mellitus, type 2: Diabetes: Chronic. -Noted increased HbA1c from last labs- needs to follow up with her PCP for tighter glycemic control. -Held Metformin inpatient- resume outpatient -Lantus qHS -ISS (4) Dyslipidemia: Hyperlipidemia: -Continued Atorvastatin 20mg po qAM (5) Hyperthyroidism: Hyperthyroidism: -Continue Methimazole 5mg po BID 4 days weekly (Monday, Monday, Monday and Monday) -Needs outpatient follow up and lab monitoring (6) Hypertension: Hypertension: -Continued Losartan -Continued Metoprolol (7) Anxiety: Depression/Anxiety: Chronic. Stable -Continued Escitalopram 20mg po qAM -Alprazolam PRN qHS Plan DVT ppx- On Apixaban. GI ppx: On Famotidine Code - DNR/DNI per patient Charley updated daily during hospitalizaion. Notes For Next Care Provider Patient presented due to back pain post mechanical fall. She noted to have an L2 compression fracture on admission. Pain well controlled with scheduled tylenol. Seen by ortho spine surgery. No plans for surgical intervention. Needs to follow up as an outpatient with Dr. Whitley. Patient given a lumbar orthotic brace to wear for support. Instructed on refraining from lifting and given instructions on wearing brace while active. Continued on all home med's. Medication Changes From Visit Scheduled tylneol. Admission HPI Per Admitting Provider Anastasiia Singer is a pleasant 88yo female with history of DM, HLP, HTN, AF on Eliquis anticoagulation presenting from home following a ground level fall resulting in an acute fracture of the superior endplate of L2. Patient has been in her usual state of health with no complaints. This afternoon around 14:30 she was getting a container out of her closet. Her right knee gave out and she fell backwards onto her bathroom floor. She sustained a mild injury/skin tear to her left elbow. She had immediate pain in her back. She laid on the ground for a few moments before staff found her and helped her up. Patient denies chest pain, SOB, dizziness, palpitations, trauma to the head or neck. No additional complaints- specifically no fever, chills, abdominal pain, nausea, vomiting, diarrhea or urinary complaints. In the ER patient has been afebrile, hypertensive otherwise HD stable. She was given a Tylenol for pain with mild improvement. She was able to get up and ambulate but was unable to dress herself due to the pain. Patient presently lives independently at [facility]. She ambulates with a walker at home. In regards to her right knee giving out - she has a remote history of RLE VTE and was on Lovenox anticoagulation which unfortunately resulted in a large hematoma. 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 Her RLE does give out on her on occasion. ER Course: Tylenol 650mg Ordered - not yet given: PM Apixaban 2.5mg PM Metoprolol 100mg PM Lantus 14u Oxycodone 5mg PO x 1 Discharge Exam General: patient resting comfortably, NAD, non-toxic in appearance, AA&O x 4 Skin: warm, dry, skin tear to left elbow with dressing in place HEENT: NC/AT, PERRL, EOMI, anicteric sclera, conjunctiva without injection, external ear normal to inspection and nontender, nares patent, moist mucus membranes Heart: +S1/S2, regular, no m/r/g Lungs: equal air entry bilaterally, no rales/rhonchi/wheezes Abd: +BS, soft, NT/ND, no masses/organomegaly/ascites Ext: warm, 2+ pulses in UE/LE bilaterally, no clubbing/cyanosis or edema Neuro: nonfocal, patient AA&O x 4, speech intact, no facial droop, moving all extremities on command with equal strength 5/5 Updated Medication List Medication Instructions Recorded Confirmed Type alprazolam 0.25 mg tablet (Xanax) 0.25 mg PO HS Anxiety 09/02/18 03/28/24 H istory insulin glargine 100 unit/mL 16 unit subcut HS 09/02/18 03/28/24 History subcutaneous solution (Lantus U-100 Insulin) metformin 500 mg tablet 500 mg PO BID 09/02/18 03/28/24 History acetaminophen 500 mg tablet 1,000 mg PO Q6H PRN Pain 06/03/21 03/28/24 History vibegron 75 mg tablet (Gemtesa) 75 mg PO DAILY #90 tabs 03/01/23 03/28/24 Rx Estrogen Cream 1 applic vaginal DIRECTED PRN 06/09/23 03/28/24 History .dryness, pain losartan 25 mg tablet 25 mg PO QAM #30 tabs 06/20/23 03/28/24 Rx metoprolol succinate 100 mg 100 mg PO BID #60 tabs 06/20/23 03/28/24 Rx tablet,extended release 24 hr solifenacin 5 mg tablet (Vesicare) 5 mg PO DAILY 07/25/23 03/28/24 History methimazole 5 mg tablet 5 mg PO .BID 4DAYS A WEEK 11/18/23 03/28/24 History diltiazem HCl 180 mg 180 mg PO QAM #30 caps 11/30/23 03/28/24 Rx capsule,extended release 24 hr escitalopram oxalate 20 mg tablet 20 mg PO QAM #30 tabs 11/30/23 03/28/24 Rx famotidine 20 mg tablet 20 mg PO BID #60 tabs 11/30/23 03/28/24 Rx apixaban 5 mg tablet (Eliquis) 2.5 mg PO BID 03/28/24 03/28/24 History Hospital Stay Data Consultations 03/28/24 20:03 ED Decision to Admit Stat 03/29/24 15:33 Consult Orthopedic Spine Surgery Routine Diagnostic Imagining Performed 03/28/24 16:20 CT lumbar spine wo con Stat CT pelvis wo con Stat 03/28/24 16:21 CT head/brain wo con Stat Pending Results Patient Have Any Pending Studies at Discharge: No Discharge Instructions Given to Patient (Per Discharging Provider) Please follow up with Dr. Whitley regarding your L2 fracture. Please wear lumbar spine brace as instructed. Total Time Total Time Spent Total Time Spent (In Minutes): >40 minutes Coding Level of Care Code 95541 INP/OBS DISCH >30 MIN Diagnoses Closed lumbar vertebral fracture S32.029A Encounter type: initial encounter Fracture morphology: unspecified fracture morphology Lumbar vertebra fracture level: L2 Paroxysmal atrial fibrillation I48.0 Diabetes mellitus, type 2 E11.9 Dyslipidemia E78.5 Hyperthyroidism E05.90 Hypertension I10 Anxiety F41.9
[2024-03-30] MEDS ORDERED: LANTUS PER UNIT CHARGE SQ SCH (21:00)
== END 2024-03-30 14:22 | disposition home health service (06) ==
LOC: ED 16:11 → 3N 16:11 → SUATTDRO 20:33 → 3N 22:51

== ENCOUNTER 2024-10-28 11:39 | Inpatient (IN) ==
--- NOTE | 2024-10-28 12:47 | CT Scan Report ---
CT head/brain wo con CLINICAL HISTORY: 89 years-old Female with fall. Acute head trauma status post fall TECHNIQUE: Multiple axial CT images of the head were obtained without contrast. A dose lowering tech nique was utilized adhering to the principles of ALARA. COMPARISON: CT cervical spine of same day, head CT 03/28/2024 FINDINGS: No acute intracranial hemorrhage, midline shift, intracranial mass, hydrocephalus, territorial ischem ia or abnormal extra-axial collection. Involutional changes with chronic microvascular ischemic disea se. Cerebrovascular calcifications. The calvarium is intact. The paranasal sinuses, mastoid air cells, and middle ear cavities are clear . IMPRESSION: No acute intracranial abnormality or calvarial fracture. ACT 112: Negative or not required by law. The above report was generated using voice recognition software. It may contain grammatical, syntax o r spelling errors. Electronically signed by: Roque Duarte M.D. 10/28/2024 12:45 PM
--- NOTE | 2024-10-28 12:56 | XRay Report ---
XR hip LT 2V w pelvis CLINICAL HISTORY: fall COMPARISON: None FINDINGS: There is an acute minimally displaced fracture at the left femoral neck. No other fracture or dislocation seen. IMPRESSION: Acute fracture left femoral neck. ACT 112: Negative or not required by law. Electronically signed by: Feng Pacheco M.D. 10/28/2024 12:54 PM
--- NOTE | 2024-10-28 12:58 | CT Scan Report ---
CT OF THE CERVICAL SPINE WITHOUT CONTRAST CLINICAL HISTORY: fall COMPARISON STUDY: Cervical spine CT December 18, 2017. TECHNIQUE: Helical axial images of the cervical spine were obtained without IV contrast. Sagittal a nd coronal reconstructions were viewed. Automated exposure control was utilized for the study. A do se lowering technique was utilized adhering to the principles of ALARA. FINDINGS: There is leftward curvature of the cervical spine. Vertebral body heights are maintained. N o acute cervical spine fracture or subluxation is present. There is no prevertebral edema. Facet join ts are intact. Moderate multilevel degenerative disc disease and facet arthrosis is present. An enla rged thyroid gland is again noted. This was shown on prior CT. IMPRESSION: No acute cervical spine fracture or subluxation. ACT 112: Negative or not required by law. Electronically signed by: Fernando Gabriel M.D. 10/28/2024 12:57 PM
--- NOTE | 2024-10-28 12:58 | XRay Report ---
XR elbow LT min 3V routine CLINICAL HISTORY: fall COMPARISON: None FINDINGS: There are mild degenerative changes. There are small chronic appearing calcifications seth cent to the epicondyles bilaterally consistent with calcific tendinitis. No acute fracture or disloca tion seen. There is a joint effusion. IMPRESSION: Joint effusion without identified acute fracture. If pain persists, follow-up is recommen ded to reevaluate for occult nondisplaced fracture. ACT 112: Negative or not required by law. Electronically signed by: Feng Pacheco M.D. 10/28/2024 12:56 PM
[2024-10-28] MEDS: fentaNYL citrate PF 100 MCG/2 ML VIAL IV ONE (14:02)
--- NOTE | 2024-10-28 14:02 | XRay Report ---
XR knee LT 1 or 2V routine, XR tibia fibula LT 2V CLINICAL HISTORY: knee pain . Fall. COMPARISON: None FINDINGS: There is chondrocalcinosis at the left knee. There is moderate osteoarthritis. No fracture or dislocation seen at the left knee or left tibia and fibula. IMPRESSION: No fracture seen. ACT 112: Negative or not required by law. Electronically signed by: Feng Pacheco M.D. 10/28/2024 2:01 PM
[2024-10-28 14:29] LABS: Basophils # (auto) 0.02 K/uL (0.00-0.20); Basophils % (auto) 0.2 %; Eosinophils # (auto) 0.09 K/uL (0.00-0.50); Eosinophils % (auto) 0.9 %; Hematocrit (blood only) 42.8 % (37.0-47.0); Hemoglobin 13.8 g/dl (12.0-16.0); Immature Granulocytes # (auto) 0.06 K/uL (0.01-0.20); Immature Granulocytes % (auto) 0.6 %; Lymphocytes # (auto) 1.19 K/uL (1.20-3.40); Lymphocytes % (auto) 12.4 %; Mean Corpuscular Hgb Conc 32.2 g/dL (32.0-36.0); Mean Corpuscular Volume 96.2 fL (80.0-100.0); Monocytes # (auto) 0.55 K/uL (0.11-0.59); Monocytes % (auto) 5.7 %; Neutrophils % (auto) 80.2 %; Platelet Count 221 K/uL (130-400); RDW Coefficient of Variation 14.1 % (11.5-14.5); Red Blood Count 4.45 M/uL (4.20-5.40); White Blood Count 9.61 K/ul (4.8-10.8)
--- NOTE | 2024-10-28 14:33 | Emergency Department Note ---
ED Provider Note History of Present Illness Chief Complaint: Fall Time Seen by Provider: 10/28/24 11:50 Source: patient Mode of arrival: EMS Limitations: no limitations Patient is an 89-year-old female who presents to the emergency department via EMS from the [facility] with complaints of left hip pain and elbow pain. Patient states that she tripped over her walker and fell landing on her left side. Patient has some pain and a small skin tear to her left elbow. Patient notes that she was not able to put any weight on her left leg after the fall. Patient states that she is on Eliquis. Patient is unsure if she hit her head or not. Home Medications Medication Instructions Recorded Confirmed Type alprazolam 0.25 mg tablet (Xanax) 0.25 mg PO HS Anxiety 09/02/18 10/28/24 History insulin glargine 100 unit/mL 16 unit subcut HS 09/02/18 10/28/24 History subcutaneous solution (Lantus U-100 Insulin) metformin 500 mg tablet 500 mg PO BID 09/02/18 10/28/24 History acetaminophen 500 mg tablet 1,000 mg PO Q6H PRN Pain 06/03/21 10/28/24 History losartan 25 mg tablet 25 mg PO QAM #30 tabs 06/20/23 10/28/24 Rx solifenacin 5 mg tablet (Vesicare) 5 mg PO QAM 07/25/23 10/28/24 History methimazole 5 mg tablet 5 mg PO UD 11/18/23 10/28/24 History diltiazem HCl 180 mg 180 mg PO QAM #30 caps 11/30/23 10/28/24 Rx capsule,extended release 24 hr escitalopram oxalate 20 mg tablet 20 mg PO QAM #30 tabs 11/30/23 10/28/24 Rx apixaban 5 mg tablet (Eliquis) 2.5 mg PO BID 03/28/24 10/28/24 History atorvastatin 20 mg tablet 20 mg PO QAM 10/28/24 10/28/24 History denosumab 60 mg/mL subcutaneous 60 mg subcut .EVERY 6 MONTHS 10/28/24 10/28/24 History syringe (Prolia) metoprolol succinate 100 mg 100 mg PO QAM 10/28/24 10/28/24 History tablet,extended release 24 hr vibegron 75 mg tablet (Gemtesa) 75 mg PO QAM 10/28/24 10/28/24 History Allergies Allergy/AdvReac Type Severity Reaction Status Date / Time levofloxacin AdvReac Intermediate Muscle Verified 08/06/24 09:15 pain (difficulty with walking) nitrofurantoin AdvReac Intermediate headache/GI Verified 08/06/24 09:15 [From Macrobid] upset/nausea Past Med/Surg History Problem List (Updated 10/29/24 @ 15:14 by Oscar Bennett DO) Encounter for pre-operative examination Closed left hip fracture (Acute) Closed lumbar vertebral fracture (Acute) Adenocarcinoma of colon Abnormal CT scan, small bowel Nausea & vomiting (Acute) Abdominal pain (Acute) Hyperthyroidism on Methimazole/managed by PCP Colonic mass SBO (small bowel obstruction) (Acute) Pacemaker Implanted 2011, 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, last check 09/2019 Abnormal EKG Paroxysmal atrial fibrillation Aspiration pneumonitis Acute respiratory failure with hypoxia Hypertensive urgency Pulmonary edema Acute bronchospasm UTI (urinary tract infection) Hypomagnesemia Anemia due to GI blood loss GI bleed (Acute) Vulvar lesion Mixed incontinence urge and stress Incontinence Yeast infection of the skin Urinary hesitancy Hypertension Diabetes mellitus, type 2 Hypothyroidism Dyslipidemia Atrial fibrillation Deep venous thrombosis Pulmonary embolism Osteoporosis Pulmonary nodules/lesions, multiple DVT (deep venous thrombosis) Pulmonary embolism Anemia Hematoma of right iliopsoas muscle Hematoma Status post hysterectomy "with BSO; fibroid" Status post tonsillectomy Status post cardiac pacemaker procedure Status post catheter ablation of atrial fibrillation Hyperthyroidism Rapid atrial fibrillation CHF (congestive heart failure) Acute pancreatitis Hematuria Diastolic congestive heart failure History of DVT (deep vein thrombosis) History of pulmonary embolus (PE) Anxiety Depression Acute pancreatitis Hematuria, gross Renal calculus, bilateral Recurrent UTI (urinary tract infection) Essential tremor Facial, hands Medical History Anemia Blood transfusions several years ago (r/t DVTs/acute blood loss) Presence of IVC filter Chronic back pain Osteoarthritis Kidney stones Pancreatitis Remote hx Diabetes mellitus, type 2 IDDM Depression Anxiety BCC (basal cell carcinoma) Hyperlipidemia DVT (deep venous thrombosis) RLE/LLE 2016- developed 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 Holliday Hypertension Surgical History Status post right knee replacement History of esophagogastroduodenoscopy (EGD) History of cystoscopy Cystoscopy, b/l ureteronephroscopy, laser lithotripsy (11/07/19): LMA#4 iGel, atraumatic insertion at [facility] History of cardiac cath 2012 > no stents PONV (postoperative nausea and vomiting) History of total knee replacement Right History of colonoscopy History of appendectomy Status post Mohs surgery S/P epidural steroid injection History of cardiac radiofrequency ablation S/P cardiac pacemaker procedure Hx of tonsillectomy History of hysterectomy MARC and BSO Family History Brother Family history of diabetes mellitus Brother Family history of diabetes mellitus Sister Family history of diabetes mellitus Grandmother (Paternal) Family history of diabetes mellitus Grandmother (Maternal) Breast cancer Denies family history of Ovarian cancer Colorectal cancer Social History Smoking Status: Never smoker Second Hand Exposure: No; Do You Dip or Chew Tobacco: No; Hx Alcohol Use: No Hx Substance Use: No Preferred Language: Sinhala Communication Ability: Effective Visual Impairment: No Limitations [employer] Required: No Beliefs That Will Affect Care: None marital status: / Current Living Situation: Alone Current Living Situation Comment: independent living current occupational status: retired Other Information That Helps Us Care for You: Yes (Would like help with healthcare needs) Feels Safe at Home: Yes Safety Concerns: Feels Safe At This Time Assistive Devices: Walker Physical Exam Vital Signs Vital Signs - 24 hr 10/28/24 11:47 10/28/24 12:00 10/28/24 12:03 Temperature 37 C Temperature Source Oral Pulse Rate 78 97 H Pulse Rate [Apical] Pulse Rate from SpO2 Sensor 70 Pulse Rhythm [Apical] Pulse Strength Normal Pulse Strength [Apical] Respiratory Rate 19 14 Respiratory Effort / Characteristics Non-Labored Spontaneous Respiratory Depth Normal Respiratory Pattern Regular Blood Pressure 161/100 H 168/87 H Blood Pressure [Right Arm] Blood Pressure Mean 120 103 Blood Pressure Mean [Right Arm] Pulse Oximetry 95 95 Oxygen Delivery Method Room Air Room Air Sepsis Recent Fever Within 48 Hours No Sepsis New/Unexplained Change in Mental Status No Sepsis Action Taken by Nursing No Action Required 10/28/24 12:37 10/28/24 13:00 10/28/24 13:00 Temperature Temperature Source Pulse Rate 74 84 Pulse Rate [Apical] Pulse Rate from SpO2 Sensor 71 Pulse Rhythm [Apical] Pulse Strength Pulse Strength [Apical] Respiratory Rate 18 Respiratory Effort / Characteristics Respiratory Depth Respiratory Pattern Blood Pressure 146/76 H 146/76 H Blood Pressure [Right Arm] Blood Pressure Mean 99 108 Blood Pressure Mean [Right Arm] Pulse Oximetry 93 Oxygen Delivery Method Room Air Sepsis Recent Fever Within 48 Hours Sepsis New/Unexplained Change in Mental Status Sepsis Action Taken by Nursing 10/28/24 13:18 10/28/24 14:44 10/28/24 14:44 Temperature Temperature Source Pulse Rate 72 Pulse Rate [Apical] 70 Pulse Rate from SpO2 Sensor 73 Pulse Rhythm [Apical] Regular Pulse Strength Pulse Strength [Apical] Normal Respiratory Rate 15 14 Respiratory Effort / Characteristics Non-Labored Spontaneous Respiratory Depth Normal Respiratory Pattern Regular Blood Pressure 142/75 H Blood Pressure [Right Arm] 142/75 H Blood Pressure Mean 116 Blood Pressure Mean [Right Arm] 97 Pulse Oximetry 97 91 Oxygen Delivery Method Room Air Room Air Sepsis Recent Fever Within 48 Hours Sepsis New/Unexplained Change in Mental Status Sepsis Action Taken by Nursing 10/28/24 15:00 10/28/24 15:01 Temperature Temperature Source Pulse Rate 72 Pulse Rate [Apical] Pulse Rate from SpO2 Sensor 72 Pulse Rhythm [Apical] Pulse Strength Pulse Strength [Apical] Respiratory Rate 18 Respiratory Effort / Characteristics Respiratory Depth Respiratory Pattern Blood Pressure 141/75 H Blood Pressure [Right Arm] Blood Pressure Mean 95 Blood Pressure Mean [Right Arm] Pulse Oximetry 94 Oxygen Delivery Method Room Air Sepsis Recent Fever Within 48 Hours Sepsis New/Unexplained Change in Mental Status Sepsis Action Taken by Nursing VITAL SIGNS - Vital signs and nursing notes were reviewed. GENERAL -89-year-old female appearing their stated age, who is in no acute distress. Communicates well with provider and answers questions appropriately. HEAD - Normocephalic, Atraumatic. No Kirk's Sign or Raccoon's Eyes. No depressed skull fractures palpable. EYES - PERRL with EOMI bilaterally. Sclera anicteric. Conjunctiva pink and moist with no injection. EARS - No deformities of external structures noted on gross examination bilaterally. NOSE - Midline and without cyanosis. No epistaxis or purulent drainage noted. NECK - Neck with FROM. Supple to palpation. No lymphadenopathy noted. LUNGS - Chest wall symmetric without accessory muscle use, intercostals retractions, or central cyanosis. Normal vesicular breath sounds CTA B/L. No wheezes, rales, or rhonchi appreciated. CARDIAC - RRR with S1/S2. No murmur, rubs, or gallops appreciated. EXTREMITIES -patient has significant pain to the left hip that radiates down to her knee and lower leg. Patient is able to move her knee and ankle with minimal difficulty. Patient does have limited range of motion of her hip and has decreased strength secondary to her discomfort. Pulses are present in her bilateral feet. Patient denies any numbness or tingling. NEUROLOGIC -Sensory intact to light touch throughout. PSYCH - A&Ox3 and cooperates fully with examiner. Pt is very pleasant and interacts well with examiner Course Administered Medications Acetaminophen (Acetaminophen 500 Mg Tab) 1,000 mg PO Q6H PRN PRN Reason: Pain Stop: 11/27/24 17:50 Last Admin: 10/28/24 21:21 Dose: 1,000 mg Documented By: FREDA Alprazolam (Alprazolam 0.25 Mg Tablet) 0.25 mg PO HS [facility] Stop: 11/27/24 20:59 Last Admin: 10/28/24 21:22 Dose: 0.25 mg Documented By: FREDA Diltiazem HCl (Diltiazem Hcl 180 Mg Capcr) 180 mg PO QAM [facility] Stop: 11/28/24 08:59 Last Admin: 10/29/24 09:31 Dose: 180 mg Documented By: ALVIN Escitalopram Oxalate (Escitalopram Oxalate 20 Mg Tab) 20 mg PO QAM [facility] Stop: 11/28/24 08:59 Last Admin: 10/29/24 09:31 Dose: 20 mg Documented By: ALVIN Famotidine (Famotidine 20 Mg Tab) 20 mg PO BID [facility] Stop: 11/27/24 20:59 Last Admin: 10/29/24 09:36 Dose: 20 mg Documented By: Admin: 10/28/24 21:22 Dose: 20 mg Documented By: FREDA Insulin Aspart (Insulin Aspart Per Unit Charge) 0 units SC ACHS [facility] Stop: 11/27/24 18:14 Last Admin: 10/29/24 12:51 Dose: Not Given Documented By: Admin: 10/29/24 07:59 Dose: Not Given Documented By: Admin: 10/28/24 21:24 Dose: Not Given Documented By: Admin: 10/28/24 19:25 Dose: Not Given Documented By: DEBRA Co-signed By: TABBY Methimazole (Methimazole 5 Mg Tablet) 5 mg PO MoTuWeFr@0900,2100 [facility] Stop: 11/27/24 20:59 Last Admin: 10/29/24 09:31 Dose: 5 mg Documented By: Admin: 10/28/24 21:24 Dose: 5 mg Documented By: FREDA Metoprolol Succinate (Metoprolol Succ 50mg Ext Rel Tab) 100 mg PO BID [facility] Stop: 11/27/24 20:59 Last Admin: 10/29/24 09:31 Dose: 100 mg Documented By: Admin: 10/28/24 21:23 Dose: 100 mg Documented By: FREDA Morphine Sulfate (Morphine Sulfate 2 Mg/Ml Carp) 2 mg IV Q3H PRN PRN Reason: Pain (1,2,3,4,5) & Pre PT Stop: 11/11/24 17:50 Last Admin: 10/29/24 08:07 Dose: 2 mg Documented By: ALVIN Senna/Docusate Sodium (Docusate Sodium/Senna 50/8.6mg Tab) 2 tab PO HS [facility] Stop: 11/27/24 20:59 Last Admin: 10/28/24 21:23 Dose: 2 tab Documented By: FREDA Discontinued Medications Fentanyl Citrate (Fentanyl Citrate Pf 100 Mcg/2 Ml Vial) 25 mcg IV NOW ONE Stop: 10/28/24 13:40 Last Admin: 10/28/24 14:02 Dose: 25 mcg Documented By: MILO Morphine Sulfate (Morphine Sulfate 4 Mg/Ml 1 Ml Carp\\Vial) Confirm Administered Dose 4 mg .ROUTE .STK-MED ONE Stop: 10/28/24 16:37 Last Admin: 10/28/24 16:39 Dose: 4 mg Documented By: ELSA Medical Decision Making Differential Diagnosis Fracture, dislocation, ligamentous injury, muscular strain, sprain, intracranial hemorrhage, subdural hematoma, among others. Medical Records Attestation: I reviewed the patient's medical records. Home Medications was personally reviewed by me Laboratory Data Attestation: I reviewed the patient's lab results. 10/28/24 14:05 10/29/24 06:27 Lab Results 10/28/24 Range/Units 14:05 WBC 9.61 (4.8-10.8) K/ul RBC 4.45 (4.20-5.40) M/uL Hgb 13.8 (12.0-16.0) g/dl Hct 42.8 (37.0-47.0) % MCV 96.2 (80.0-100.0) fL MCH 31.0 (25.0-34.0) pg MCHC 32.2 (32.0-36.0) g/dL RDW Std Deviation 50.0 H (36.4-46.3) fL RDW Coeff of Cruz 14.1 (11.5-14.5) % Plt Count 221 (130-400) K/uL MPV 9.0 L (9.4-12.4) fL Immature Gran % (Auto) 0.6 % Neut % (Auto) 80.2 % Lymph % (Auto) 12.4 % [place] % (Auto) 5.7 % Eos % (Auto) 0.9 % Baso % (Auto) 0.2 % Neut # (Auto) 7.70 H (1.40-6.50) K/uL Lymph # (Auto) 1.19 L (1.20-3.40) K/uL [place] # (Auto) 0.55 (0.11-0.59) K/uL Eos # (Auto) 0.09 (0.00-0.50) K/uL Baso # (Auto) 0.02 (0.00-0.20) K/uL Immature Gran # (Auto) 0.06 (0.01-0.20) K/uL Sodium 137 (136-145) mmol/L Potassium 4.8 (3.5-5.1) mmol/L Chloride 105 (98-107) mmol/L Carbon Dioxide 28 (21-32) mmol/L Anion Gap 4 (3-11) BUN 23 (6-23) mg/dl Creatinine 0.90 (0.6-1.2) mg/dl Est Cr Clr Drug Dosing 42.3 ml/min eGFR 61.87 BUN/Creatinine Ratio 25.6 H (10-20) Glucose 137 H (70-99(Fasting)) mg/dl Calcium 9.1 (8.6-10.3) mg/dl Total Bilirubin 0.6 (0.2-1.0) mg/dl AST 14 (13-39) U/L ALT 12 (7-52) U/L Alkaline Phosphatase 60 (34-104) U/L Total Protein 7.1 (6.0-8.3) gm/dl Albumin 4.1 (3.4-5.0) gm/dl Globulin 3.0 (2.5-4.0) gm/dl Albumin/Globulin Ratio 1.4 (0.9-2) Imaging Data Radiologist's Impression: Cervical Spine CT 10/28/24 12:04 CT OF THE CERVICAL SPINE WITHOUT CONTRAST CLINICAL HISTORY: fall COMPARISON STUDY: Cervical spine CT December 18, 2017. TECHNIQUE: Helical axial images of the cervical spine were obtained without IV contrast. Sagittal and coronal reconstructions were viewed. Automated exposure control was utilized for the study. A dose lowering technique was utilized adhering to the principles of ALARA. FINDINGS: There is leftward curvature of the cervical spine. Vertebral body heights are maintained. No acute cervical spine fracture or subluxation is present. There is no prevertebral edema. Facet joints are intact. Moderate multilevel degenerative disc disease and facet arthrosis is present. An enlarged thyroid gland is again noted. This was shown on prior CT. IMPRESSION: No acute cervical spine fracture or subluxation. ACT 112: Negative or not required by law. Electronically signed by: Fernando Gabriel M.D. 10/28/2024 12:57 PM Elbow X-Ray 10/28/24 12:04 XR elbow LT min 3V routine CLINICAL HISTORY: fall COMPARISON: None FINDINGS: There are mild degenerative changes. There are small chronic appearing calcifications adjacent to the epicondyles bilaterally consistent with calcific tendinitis. No acute fracture or dislocation seen. There is a joint effusion. IMPRESSION: Joint effusion without identified acute fracture. If pain persists, follow-up is recommended to reevaluate for occult nondisplaced fracture. ACT 112: Negative or not required by law. Electronically signed by: Feng Pacheco M.D. 10/28/2024 12:[address] 10/28/24 12:04 CT head/brain wo con CLINICAL HISTORY: 89 years-old Female with fall. Acute head trauma status post fall TECHNIQUE: Multiple axial CT images of the head were obtained without contrast. A dose lowering technique was utilized adhering to the principles of ALARA. COMPARISON: CT cervical spine of same day, head CT 03/28/2024 FINDINGS: No acute intracranial hemorrhage, midline shift, intracranial mass, hydrocephalus, territorial ischemia or abnormal extra-axial collection. Involutional changes with chronic microvascular ischemic disease. Cerebrovascular calcifications. The calvarium is intact. The paranasal sinuses, mastoid air cells, and middle ear cavities are clear. IMPRESSION: No acute intracranial abnormality or calvarial fracture. ACT 112: Negative or not required by law. The above report was generated using voice recognition software. It may contain grammatical, syntax or spelling errors. Electronically signed by: Roque Duarte M.D. 10/28/2024 12:45 PM Hip/Pelvis X-Ray 10/28/24 12:04 XR hip LT 2V w pelvis CLINICAL HISTORY: fall COMPARISON: None FINDINGS: There is an acute minimally displaced fracture at the left femoral neck. No other fracture or dislocation seen. IMPRESSION: Acute fracture left femoral neck. ACT 112: Negative or not required by law. Electronically signed by: Feng Pacheco M.D. 10/28/2024 12:54 PM Knee X-Ray 10/28/24 13:19 XR knee LT 1 or 2V routine, XR tibia fibula LT 2V CLINICAL HISTORY: knee pain . Fall. COMPARISON: None FINDINGS: There is chondrocalcinosis at the left knee. There is moderate osteoarthritis. No fracture or dislocation seen at the left knee or left tibia and fibula. IMPRESSION: No fracture seen. ACT 112: Negative or not required by law. Electronically signed by: Feng Pacheco M.D. 10/28/2024 2:01 PM Tibia/Fibula X-Ray 10/28/24 13:19 XR knee LT 1 or 2V routine, XR tibia fibula LT 2V CLINICAL HISTORY: knee pain . Fall. COMPARISON: None FINDINGS: There is chondrocalcinosis at the left knee. There is moderate osteoarthritis. No fracture or dislocation seen at the left knee or left tibia and fibula. IMPRESSION: No fracture seen. ACT 112: Negative or not required by law. Electronically signed by: Feng Pacheco M.D. 10/28/2024 2:01 PM MDM Narrative Patient is an 89-year-old female who presents to the emergency department via EMS from the [place] with complaints of left hip pain and elbow pain. Patient states that she tripped over her walker and fell landing on her left side. Patient has some pain and a small skin tear to her left elbow. Patient notes that she was not able to put any weight on her left leg after the fall. Patient states that she is on Eliquis. Patient is unsure if she hit her head or not. Patient was evaluated by myself and findings were noted in the physical exam above. Patient was ordered a CT of the head and cervical spine as well as an x-ray of the left hip and left elbow. Patient's left elbow x-ray was interpreted by radiology to show a small joint effusion but noted no fracture or bony abnormalities. Patient's left hip x-ray was interpreted by radiology and noted to have an acute minimally displaced fracture at the left femoral neck. Patient CT of the head was negative for any acute intracranial abnormalities or skull fractures. Patient CT of the cervical spine was also negative for any fracture or subluxation. I discussed with the patient the findings of her CTs and x-rays and the patient verbalized understanding. I discussed with the patient that she would need to stay in the hospital to be evaluated by orthopedics and they may likely need to repair the fracture of her femur. The patient verbalized understanding and is agreeable to the plan for hospital admission. I reached out to Dr. Pleitez who is on-call for orthopedics today and I discussed this case with him. Dr. Pleitez agreed that the patient would likely need repair of his hip fracture tomorrow but she should be admitted to the hospital medically. I reached out to [facility] hospitalist group and spoke with Katty. I gave her a full report on the patient including the chief complaint, current status, and the results of her imaging and lab work. She agreed to accept the patient under Dr. Calvo's service. Patient was at that point ordered IV placement and lab work. patient's lab work result resulted and was unremarkable. Patient had a white blood cell count of 9.61. No indication of anemia with a hemoglobin of 13.8 and hematocrit of 42.8. Patient had no noted electrolyte imbalance. Patient was also ordered a dose of fentanyl for her discomfort. Upon reevaluation the patient states that she was feeling better. Please refer to [facility] group's documentation for further evaluation and management of this patient. Impression Closed left hip fracture Discharge Plan Visit Data Chief Complaint: Fall ED Provider: Destini Prado ED Midlevel Provider: Kary Wright Discharge Problem: Closed left hip fracture Patient Disposition: Admitted As Inpatient Discharge Instructions Interventions: ED Discharge Assessment Last Done: 10/28/24 17:52
[2024-10-28 14:44] LABS: Albumin Globulin Ratio 1.4 (0.9-2); Albumin Level 4.1 gm/dl (3.4-5.0); BUN Creatinine Ratio 25.6 (10-20); Bilirubin,Total 0.6 mg/dl (0.2-1.0); Calcium 9.1 mg/dl (8.6-10.3); Creatinine Clr Calc Pharmacy 42.3 ml/min; Potassium 4.8 mmol/L (3.5-5.1); Total Protein 7.1 gm/dl (6.0-8.3)
--- NOTE | 2024-10-28 15:08 | History & Physical Report ---
Date of Service October 28, 2024 Assessment & Plan (1) Closed left hip fracture: (2) Paroxysmal atrial fibrillation: (3) Diabetes mellitus, type 2: (4) Hyperthyroidism: (5) Depression: (6) Adenocarcinoma of colon: Plan 89-year-old female with ground-level fall sustaining left hip fracture patient will be seen by [facility] orthopedics.. Other chronic problems include diabetes atrial fibrillation hypothyroidism previous vertebral fractures permanent pacemaker and history of colon cancer. #Left hip fracture patient will be brought in our facility EKG and chest x-ray will be undertaken. She will have SCDs for DVT prevention will evaluate her cardiopulmonary risk. Will keep her n.p.o. after midnight however Eliquis dosing may impact surgical timing. Will control pain with parenteral opiate therapy History of atrial fibrillation, hold her Eliquis dose at this time continue metoprolol and diltiazem for rate control. History hypertension patient takes losartan this will be held on postop day 1 to avoid orthostatic hypotension Diabetes mellitus. Patient typically takes glargine and metformin, (holding metformin) will have the patient on sliding scale insulin because of consideration of n.p.o. status will not have long-acting insulin at this point time. For her hypothyroidism continue methimazole Patient takes alprazolam and escitalopram for anxiety depression is to be continued History of Present Illness Primary Care Provider: NO PCP 89-year-old female who had a ground-level fall while the personal-fpc, [facility], she has multiple injuries mostly focused on her left hip. There is question of left hip fracture on pelvic x-ray and patient is admitted to hospital for geriatric fracture program with possible surgical repair on 10/27/2024. Patient has a medical history including a previous history of colon cancer diabetes atrial fibrillation with the permanent pacemaker and hypothyroidism. Allergies Allergy/AdvReac Type Severity Reaction Status Date / Time levofloxacin AdvReac Intermediate Muscle Verified 08/06/24 09:15 pain (difficulty with walking) nitrofurantoin AdvReac Intermediate headache/GI Verified 08/06/24 09:15 [From Macrobid] upset/nausea Home Medications Medication Instructions Recorded Confirmed Type alprazolam 0.25 mg tablet (Xanax) 0.25 mg PO HS Anxiety 09/02/18 10/28/24 History insulin glargine 100 unit/mL 16 unit subcut HS 09/02/18 10/28/24 History subcutaneous solution (Lantus U-100 Insulin) metformin 500 mg tablet 500 mg PO BID 09/02/18 10/28/24 History acetaminophen 500 mg tablet 1,000 mg PO Q6H PRN Pain 06/03/21 10/28/24 History losartan 25 mg tablet 25 mg PO QAM #30 tabs 06/20/23 10/28/24 Rx solifenacin 5 mg tablet (Vesicare) 5 mg PO QAM 07/25/23 10/28/24 History methimazole 5 mg tablet 5 mg PO UD 11/18/23 10/28/24 History diltiazem HCl 180 mg 180 mg PO QAM #30 caps 11/30/23 10/28/24 Rx capsule,extended release 24 hr escitalopram oxalate 20 mg tablet 20 mg PO QAM #30 tabs 11/30/23 10/28/24 Rx apixaban 5 mg tablet (Eliquis) 2.5 mg PO BID 03/28/24 10/28/24 History atorvastatin 20 mg tablet 20 mg PO QAM 10/28/24 10/28/24 History denosumab 60 mg/mL subcutaneous 60 mg subcut .EVERY 6 MONTHS 10/28/24 10/28/24 History syringe (Prolia) metoprolol succinate 100 mg 100 mg PO QAM 10/28/24 10/28/24 History tablet,extended release 24 hr vibegron 75 mg tablet (Gemtesa) 75 mg PO QAM 10/28/24 10/28/24 History Past Med/Surg History Problem List (Updated 10/28/24 @ 15:03 by Evert Calvo MD) Closed left hip fracture Closed lumbar vertebral fracture (Acute) Adenocarcinoma of colon Abnormal CT scan, small bowel Nausea & vomiting (Acute) Abdominal pain (Acute) Hyperthyroidism on Methimazole/managed by PCP Colonic mass SBO (small bowel obstruction) (Acute) Pacemaker Implanted 2011, 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, last check 09/2019 Abnormal EKG Paroxysmal atrial fibrillation Aspiration pneumonitis Acute respiratory failure with hypoxia Hypertensive urgency Pulmonary edema Acute bronchospasm UTI (urinary tract infection) Hypomagnesemia Anemia due to GI blood loss GI bleed (Acute) Vulvar lesion Mixed incontinence urge and stress Incontinence Yeast infection of the skin Urinary hesitancy Hypertension Diabetes mellitus, type 2 Hypothyroidism Dyslipidemia Atrial fibrillation Deep venous thrombosis Pulmonary embolism Osteoporosis Pulmonary nodules/lesions, multiple DVT (deep venous thrombosis) Pulmonary embolism Anemia Hematoma of right iliopsoas muscle Hematoma Status post hysterectomy "with BSO; fibroid" Status post tonsillectomy Status post cardiac pacemaker procedure Status post catheter ablation of atrial fibrillation Hyperthyroidism Rapid atrial fibrillation CHF (congestive heart failure) Acute pancreatitis Hematuria Diastolic congestive heart failure History of DVT (deep vein thrombosis) History of pulmonary embolus (PE) Anxiety Depression Acute pancreatitis Hematuria, gross Renal calculus, bilateral Recurrent UTI (urinary tract infection) Essential tremor Facial, hands Medical History (Updated 10/28/24 @ 15:03 by Evert Calvo MD) Anemia Blood transfusions several years ago (r/t DVTs/acute blood loss) Presence of IVC filter Chronic back pain Osteoarthritis Kidney stones Pancreatitis Remote hx Diabetes mellitus, type 2 IDDM Depression Anxiety BCC (basal cell carcinoma) Hyperlipidemia DVT (deep venous thrombosis) RLE/LLE 2016- developed 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 Holliday Hypertension Surgical History (Updated 04/30/24 @ 00:06 by Ramin Callahan) Status post right knee replacement History of esophagogastroduodenoscopy (EGD) History of cystoscopy Cystoscopy, b/l ureteronephroscopy, laser lithotripsy (11/07/19): LMA#4 iGel, atraumatic insertion at [facility] History of cardiac cath 2011 > no stents PONV (postoperative nausea and vomiting) History of total knee replacement Right History of colonoscopy History of appendectomy Status post Mohs surgery S/P epidural steroid injection History of cardiac radiofrequency ablation S/P cardiac pacemaker procedure Hx of tonsillectomy History of hysterectomy MARC and BSO Family History Brother Family history of diabetes mellitus Brother Family history of diabetes mellitus Sister Family history of diabetes mellitus Grandmother (Paternal) Family history of diabetes mellitus Grandmother (Maternal) Breast cancer Denies family history of Ovarian cancer Colorectal cancer Social History Smoking Status: Never smoker Second Hand Exposure: No; Do You Dip or Chew Tobacco: No; Hx Alcohol Use: No Hx Substance Use: No Preferred Language: Algerian Communication Ability: Effective Visual Impairment: No Limitations Rotary Drier Required: No Beliefs That Will Affect Care: None marital status: / Current Living Situation: Alone Current Living Situation Comment: independent living current occupational status: retired Feels Safe at Home: Yes Assistive Devices: Walker Physical Exam Physical Exam: The patient appeared well nourished and normally developed. Vital signs as documented. Head exam is normocephalic atraumatic Neck is without JVD, thyromegaly, or carotid bruits. Lungs are clear to auscultation, no focal loss of breath sounds Cardiac exam, irregular rate controlled with a slight murmur cardiac pacemaker left upper chest is without tenderness Abdominal exam reveals normal bowel sounds, soft non tender, no masses Extremities are nonedematous and both pedal pulses are present Neurologic exam is alert and oriented, no focal loss of strength or sensation Skin is without bruises or rashes Psychologically is without concerns for anxiety or depression.. Results & Data Results & Data Vital Signs (Past 12 Hours) Vital Signs Temp Pulse Pulse Resp BP BP Pulse Ox 10/28/24 14:44 70 14 142/75 H 91 10/28/24 13:18 72 15 97 10/28/24 13:00 146/76 H 10/28/24 13:00 84 18 146/76 H 93 10/28/24 12:37 74 10/28/24 12:03 97 H 14 95 10/28/24 12:00 168/87 H 10/28/24 11:47 98.6 F 78 19 161/100 H 95 O2 Del Method 10/28/24 14:44 Room Air 10/28/24 13:18 Room Air 10/28/24 13:00 10/28/24 13:00 Room Air 10/28/24 12:37 10/28/24 12:03 Room Air 10/28/24 12:00 10/28/24 11:47 Room Air Laboratory Results Reviewed CBC Reviewed chemistry PG Care Time/CCT Total # of Minutes Spent Total Time Spent with Patient: Total time spent is greater than 50% in coordination of care (as documented) at patient's floor/unit and/or counseling patient: Coding Level of Care Code 17617 INT INP/OBS CARE 75MIN Diagnoses Closed left hip fracture S72.002A Paroxysmal atrial fibrillation I48.0 Diabetes mellitus, type 2 E11.9 Hyperthyroidism E05.90 Depression F32.9 Adenocarcinoma of colon C18.9
--- NOTE | 2024-10-28 15:08 | Orthopedic Consultation ---
Date of Service October 28, 2024 Assessment & Plan (1) Closed left hip fracture: Assessment: Left femoral neck fracture. Plan: I had a long discussion today with the patient about her left hip pathology with ample amount time for patient ask any question or stated concerns. All question concerns were answered to the patient's satisfaction. At this point in time, the case was discussed with Dr. Pleitez in which he feels that she currently will require a left hemiarthroplasty versus percutaneous screw fixation of her femoral neck fracture. This was discussed with the patient its entirely. I discussed the risk, benefits, and alternatives to these procedures in great detail with ample amount time for patient ask any questions stating concerns. All question concerns were answered the patient satisfaction she wishes to proceed with surgical intervention. This will be completed tomorrow evening by either Dr. Pleitez or Dr. Schaffer. She should remain n.p.o. after midnight tonight. She is to remain on bedrest. Postoperative expectations were discussed with clear understanding. Will continue to follow. Proceed with surgical intervention tomorrow if medically cleared by primary service. History of Present Illness Reason for Consultation: . Left femoral neck fracture Requesting Physician: . .Patient is an 89-year-old female who presented to the emergency department today after sustaining a fall. She had immediate onset of left hip pain. She was transferred to the emergency department where they completed an x-ray study of the left hip which showed a acute femoral neck fracture. She notes that most of her pain is localized to the anterior aspect of her left hip ranging from 10 out of 10 pain. She notes that she is currently at about a 7 out of 10 after receiving a dose of pain medication. She denies any low back pain, distal extremity pain, numbness/ting, or paresthesias. She denies any other concerns today. Allergies Allergy/AdvReac Type Severity Reaction Status Date / Time levofloxacin AdvReac Intermediate Muscle Verified 08/06/24 09:15 pain (difficulty with walking) nitrofurantoin AdvReac Intermediate headache/GI Verified 08/06/24 09:15 [From Macrobid] upset/nausea Home Medications Medication Instructions Recorded Confirmed Type alprazolam 0.25 mg tablet (Xanax) 0.25 mg PO HS Anxiety 09/02/18 08/06/24 History insulin glargine 100 unit/mL 16 unit subcut HS 09/02/18 08/06/24 History subcutaneous solution (Lantus U-100 Insulin) metformin 500 mg tablet 500 mg PO BID 09/02/18 08/06/24 History acetaminophen 500 mg tablet 1,000 mg PO Q6H PRN Pain 06/03/21 08/06/24 History vibegron 75 mg tablet (Gemtesa) 75 mg PO DAILY #90 tabs 03/01/23 08/06/24 Rx Estrogen Cream 1 applic vaginal DIRECTED PRN 06/09/23 08/06/24 History .dryness, pain losartan 25 mg tablet 25 mg PO QAM #30 tabs 06/20/23 08/06/24 Rx metoprolol succinate 100 mg 100 mg PO BID #60 tabs 06/20/23 08/06/24 Rx tablet,extended release 24 hr solifenacin 5 mg tablet (Vesicare) 5 mg PO DAILY 07/25/23 08/06/24 History methimazole 5 mg tablet 5 mg PO .BID 4DAYS A WEEK 11/18/23 08/06/24 History diltiazem HCl 180 mg 180 mg PO QAM #30 caps 11/30/23 08/06/24 Rx capsule,extended release 24 hr escitalopram oxalate 20 mg tablet 20 mg PO QAM #30 tabs 11/30/23 08/06/24 Rx famotidine 20 mg tablet 20 mg PO BID #60 tabs 11/30/23 03/28/24 Rx apixaban 5 mg tablet (Eliquis) 2.5 mg PO BID 03/28/24 08/06/24 History Past Med/Surg History Problem List (Updated 10/28/24 @ 15:03 by Evert Calvo MD) Closed left hip fracture Closed lumbar vertebral fracture (Acute) Adenocarcinoma of colon Abnormal CT scan, small bowel Nausea & vomiting (Acute) Abdominal pain (Acute) Hyperthyroidism on Methimazole/managed by PCP Colonic mass SBO (small bowel obstruction) (Acute) Pacemaker Implanted 2011, 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, last check 09/2019 Abnormal EKG Paroxysmal atrial fibrillation Aspiration pneumonitis Acute respiratory failure with hypoxia Hypertensive urgency Pulmonary edema Acute bronchospasm UTI (urinary tract infection) Hypomagnesemia Anemia due to GI blood loss GI bleed (Acute) Vulvar lesion Mixed incontinence urge and stress Incontinence Yeast infection of the skin Urinary hesitancy Hypertension Diabetes mellitus, type 2 Hypothyroidism Dyslipidemia Atrial fibrillation Deep venous thrombosis Pulmonary embolism Osteoporosis Pulmonary nodules/lesions, multiple DVT (deep venous thrombosis) Pulmonary embolism Anemia Hematoma of right iliopsoas muscle Hematoma Status post hysterectomy "with BSO; fibroid" Status post tonsillectomy Status post cardiac pacemaker procedure Status post catheter ablation of atrial fibrillation Hyperthyroidism Rapid atrial fibrillation CHF (congestive heart failure) Acute pancreatitis Hematuria Diastolic congestive heart failure History of DVT (deep vein thrombosis) History of pulmonary embolus (PE) Anxiety Depression Acute pancreatitis Hematuria, gross Renal calculus, bilateral Recurrent UTI (urinary tract infection) Essential tremor Facial, hands Medical History (Updated 10/28/24 @ 15:03 by Evert Calvo MD) Anemia Blood transfusions several years ago (r/t DVTs/acute blood loss) Presence of IVC filter Chronic back pain Osteoarthritis Kidney stones Pancreatitis Remote hx Diabetes mellitus, type 2 IDDM Depression Anxiety BCC (basal cell carcinoma) Hyperlipidemia DVT (deep venous thrombosis) RLE/LLE 2016- developed 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 Holliday Hypertension Surgical History (Updated 04/30/24 @ 00:06 by Ramin Callahan) Status post right knee replacement History of esophagogastroduodenoscopy (EGD) History of cystoscopy Cystoscopy, b/l ureteronephroscopy, laser lithotripsy (11/07/19): LMA#4 iGel, atraumatic insertion at [facility] History of cardiac cath 2011 > no stents PONV (postoperative nausea and vomiting) History of total knee replacement Right History of colonoscopy History of appendectomy Status post Mohs surgery S/P epidural steroid injection History of cardiac radiofrequency ablation S/P cardiac pacemaker procedure Hx of tonsillectomy History of hysterectomy MARC and BSO Family History Brother Family history of diabetes mellitus Brother Family history of diabetes mellitus Sister Family history of diabetes mellitus Grandmother (Paternal) Family history of diabetes mellitus Grandmother (Maternal) Breast cancer Denies family history of Ovarian cancer Colorectal cancer Social History Smoking Status: Never smoker Second Hand Exposure: No; Do You Dip or Chew Tobacco: No; Hx Alcohol Use: No Hx Substance Use: No Preferred Language: Bulgarian Communication Ability: Effective Visual Impairment: No Limitations Metal Fence Erector Required: No Beliefs That Will Affect Care: None marital status: / Current Living Situation: Alone Current Living Situation Comment: independent living current occupational status: retired Feels Safe at Home: Yes Assistive Devices: Walker Review of Systems All systems reviewed & are unremarkable except as noted in HPI & below. Physical Exam . Constitutional: WD/WN, vitals as above no acute distress Musculoskeletal: On physical examination of the left hip, there is no erythema, ecchymosis, edema, or other obvious deformities. Tenderness to palpation diffusely throughout the left hip joint. No leg length discrepancies. Range of motion and strength not assessed at the hip joint secondary to known fracture. Intact plantarflexion dorsiflexion of the left ankle. +2 DP and PT pulses. Less than 2-second capillary refill. Normal sensation. Neurovascular intact. Results & Data Results & Data Laboratory Results . Diagnostic Findings . Cervical Spine CT 10/28/24 12:04 CT OF THE CERVICAL SPINE WITHOUT CONTRAST CLINICAL HISTORY: fall COMPARISON STUDY: Cervical spine CT December 18, 2017. TECHNIQUE: Helical axial images of the cervical spine were obtained without IV contrast. Sagittal and coronal reconstructions were viewed. Automated exposure control was utilized for the study. A dose lowering technique was utilized adhering to the principles of ALARA. FINDINGS: There is leftward curvature of the cervical spine. Vertebral body heights are maintained. No acute cervical spine fracture or subluxation is present. There is no prevertebral edema. Facet joints are intact. Moderate multilevel degenerative disc disease and facet arthrosis is present. An enlarged thyroid gland is again noted. This was shown on prior CT. IMPRESSION: No acute cervical spine fracture or subluxation. ACT 112: Negative or not required by law. Electronically signed by: Fernando Gabriel M.D. 10/28/2024 12:57 PM Elbow X-Ray 10/28/24 12:04 XR elbow LT min 3V routine CLINICAL HISTORY: fall COMPARISON: None FINDINGS: There are mild degenerative changes. There are small chronic appearing calcifications adjacent to the epicondyles bilaterally consistent with calcific tendinitis. No acute fracture or dislocation seen. There is a joint effusion. IMPRESSION: Joint effusion without identified acute fracture. If pain persists, follow-up is recommended to reevaluate for occult nondisplaced fracture. ACT 112: Negative or not required by law. Electronically signed by: Feng Pacheco M.D. 10/28/2024 12:[address] 10/28/24 12:04 CT head/brain wo con CLINICAL HISTORY: 89 years-old Female with fall. Acute head trauma status post fall TECHNIQUE: Multiple axial CT images of the head were obtained without contrast. A dose lowering technique was utilized adhering to the principles of ALARA. COMPARISON: CT cervical spine of same day, head CT 03/28/2024 FINDINGS: No acute intracranial hemorrhage, midline shift, intracranial mass, hydrocephalus, territorial ischemia or abnormal extra-axial collection. Involutional changes with chronic microvascular ischemic disease. Cerebrovascular calcifications. The calvarium is intact. The paranasal sinuses, mastoid air cells, and middle ear cavities are clear. IMPRESSION: No acute intracranial abnormality or calvarial fracture. ACT 112: Negative or not required by law. The above report was generated using voice recognition software. It may contain grammatical, syntax or spelling errors. Electronically signed by: Roque Duarte M.D. 10/28/2024 12:45 PM Hip/Pelvis X-Ray 10/28/24 12:04 XR hip LT 2V w pelvis CLINICAL HISTORY: fall COMPARISON: None FINDINGS: There is an acute minimally displaced fracture at the left femoral neck. No other fracture or dislocation seen. IMPRESSION: Acute fracture left femoral neck. ACT 112: Negative or not required by law. Electronically signed by: Feng Pacheco M.D. 10/28/2024 12:54 PM Knee X-Ray 10/28/24 13:19 XR knee LT 1 or 2V routine, XR tibia fibula LT 2V CLINICAL HISTORY: knee pain . Fall. COMPARISON: None FINDINGS: There is chondrocalcinosis at the left knee. There is moderate osteoarthritis. No fracture or dislocation seen at the left knee or left tibia and fibula. IMPRESSION: No fracture seen. ACT 112: Negative or not required by law. Electronically signed by: Feng Pacheco M.D. 10/28/2024 2:01 PM Tibia/Fibula X-Ray 10/28/24 13:19 XR knee LT 1 or 2V routine, XR tibia fibula LT 2V CLINICAL HISTORY: knee pain . Fall. COMPARISON: None FINDINGS: There is chondrocalcinosis at the left knee. There is moderate osteoarthritis. No fracture or dislocation seen at the left knee or left tibia and fibula. IMPRESSION: No fracture seen. ACT 112: Negative or not required by law. Electronically signed by: Feng Pacheco M.D. 10/28/2024 2:01 PM PG Care Time/CCT Total # of Minutes Spent Total Time Spent with Patient: Total time spent is greater than 50% in coordination of care (as documented) at patient's floor/unit and/or counseling patient: Coding Level of Care Code 24566 IN/OBS CONSULT LVL 3,45M Diagnoses Closed left hip fracture S72.002A
--- NOTE | 2024-10-28 15:58 | Emergency Department Note ---
ED Visit Note I was consulted by the Advanced Practice Provider. I personally approved the management plan and take responsibility for the patient management. This includes the aspects of: -History/Physical -MDM -I independently interpreted the following studies:Studies and results .
[2024-10-28] MEDS: MoRPHine SULFATE 4 MG/ML 1 ML CARP\\VIAL ONE (16:39)
[2024-10-28] MEDS ORDERED: MAGNESIUM HYDROXIDE SUSP 30 ML UDC PO PRN (17:51)
[2024-10-28] MEDS ORDERED: ONDANSETRON INJ 2 MG/ML 2 ML VIAL IV PRN (17:51)
[2024-10-28] MEDS ORDERED: bisacodyL 10 MG SUPP PR PRN (17:51)
[2024-10-28] MEDS ORDERED: CARBOHYDRATES FOR HYPOGLYCEMIA PO PRN (17:51)
[2024-10-28] MEDS ORDERED: DEXTROSE 50% 50 ML SYRINGE IV PRN (17:51)
[2024-10-28] MEDS ORDERED: GLUCAGON FOR INJ 1 MG VIAL SQ PRN (17:51)
[2024-10-28] MEDS ORDERED: GLUCOSE 40% GEL 15 GM TUBE PO PRN (17:51)
[2024-10-28] MEDS ORDERED: NALOXONE HCL 0.4 MG/1 ML VIAL/CARP IV PRN (17:51)
[2024-10-28] MEDS ORDERED: MoRPHine SULFATE 4 MG/ML 1 ML CARP\\VIAL IV PRN (17:51)
[2024-10-28] MEDS ORDERED: oxyCODONE HCL IR 5 MG TAB (IMMEDIATE RELEASE) PO PRN (17:51)
[2024-10-28] MEDS ORDERED: GLUCOSE 10 TAB/TUBE PO PRN (17:51)
[2024-10-28] MEDS: INSULIN ASPART PER UNIT CHARGE SC SCH (19:25)
--- NOTE | 2024-10-28 20:05 | XRay Report ---
EXAM: XR chest 1V portable CLINICAL HISTORY: Pre op. TECHNIQUE: X-ray images of the chest were obtained in AP projections. COMPARISON: 11/18/2023 FINDINGS: Pulmonary Parenchyma: Diffuse bilateral mainly basal reticuloseptal thickening, correlate clinically. (Stable) Ill-defined nodular density at the right lung upper zone No evidence of pleural effusion or pleural thickening. Heart and Mediastinum: Heart size is borderline enlarged. No mediastinal widening or masses. No hilar or mediastinal lymphadenopathy. Dual lead pacemaker in place. Bony Thorax: Bony thorax appears intact without fractures or deformities. Soft Tissues: Soft tissues overlying the chest wall are unremarkable. IMPRESSION: 1. Diffuse bilateral mainly basal reticuloseptal thickening ,correlate clinically. (stable) 2. Ill-defined nodular density at the right lung upper zone, Static. Electronically signed by Little Pena 10-28-2024 8:05 PM
--- OUTSIDE RECORDS SUMMARY | 2024-10-28 20:26 | External Medical Summary ---
Author Name Unknown Address Unknown Organization K01:LABORATORY [facility] [place] - [address] [facility] [id number] Laboratory Report Ordering Provider Test Date Status FRANKIE BERKOWITZ 09/12/2024 10:06:59 Final Observation Date Value Abnormality Reference (Units ) Status SYNC LEUKOCYTES IN BLOOD BY AUTOMATED COUNT 09/12/2024 10:06:59 7.30 4.00-10.80 (K/uL) Final Segs 09/12/2024 10:06:59 53.1 40.0-75.0 (%) Final Lymphs % 09/12/2024 10:06:59 32.9 18.0-42.0 (%) Final Monos 09/12/2024 10:06:59 10.0 1.0-11.0 (%) Final Eosinophils 09/12/2024 10:06:59 3.2 0.0-6.0 (%) Final Basos 09/12/2024 10:06:59 0.3 0.0-2.0 (%) Final Immature Granulocyte, Percent 09/12/2024 10:06:59 0.5 0.0-2.0 (%) Final Absolute Segs 09/12/2024 10:06:59 3.88 1.80-7.70 (K/uL) Final Lymphs, absolute 09/12/2024 10:06:59 2.40 1.00-4.80 (K/ul) Final Monos, Abs 09/12/2024 10:06:59 0.73 0.00-1.10 (K/uL) Final Eos, Abs 09/12/2024 10:06:59 0.23 0.00-0.70 (K/uL) Final Basos, Abs 09/12/2024 10:06:59 0.02 0.00-0.20 (K/uL) Final Immature Granulocytes, Number 09/12/2024 10:06:59 0.04 0.00-0.20 (K/uL) Final Performing Location LABORATORY [facility] [place] - [facility] [place] [id number]
--- OUTSIDE RECORDS SUMMARY | 2024-10-28 20:26 | External Medical Summary | Continuity of Care Document ---
Author Name Unknown Organization [id number] Address [address] [place] [id number] Care Team Providers Care Fire Safety Manager Name Role Phone Avelina Douglas Primary Care Physician [phone] Encounter [facility] [phone] Date(s): 08/29/24 - 08/29/24 [facility] 0 [facility] [address] [facility] [address] [address] Encounter Diagnosis Compression fracture of vertebra(Discharge Diagnosis) - 08/29/24 Low back pain(Discharge Diagnosis) - 08/29/24 Facet arthropathy(Discharge Diagnosis) - 08/29/24 Lumbar radiculopathy(Discharge Diagnosis) - 08/29/24 Discharge Disposition: Home or Self Care Attending Physician: MD Bahena Jesse Allergies, Adverse Reactions, Alerts No Known Medication Allergies Medications ALPRAZolam 0.25 mg oral tablet Start: 05/22/24 9:09:00 AM EDT, 1 tab, PO, qhs, PRN: as needed for anxiety Start Date: 05/22/24 Status: Ordered atorvastatin 20 mg oral tablet Start: 05/22/24 9:09:00 AM EDT, 1 tab, PO, Daily Start Date: 05/22/24 Status: Ordered Diltia XT 180 mg/24 hours oral capsule, extended release Start: 05/22/24 9:10:00 AM EDT, 1 cap, PO, Daily Start Date: 05/22/24 Status: Ordered Eliquis 5 mg oral tablet Start: 05/22/24 9:09:00 AM EDT, 1 tab, PO, bid Start Date: 05/22/24 Status: Ordered Gemtesa 75 mg oral tablet Start: 05/22/24 9:09:00 AM EDT Start Date: 05/22/24 Status: Ordered Lantus Solostar Pen 100 units/mL subcutaneous solution Start: 05/22/24 9:08:00 AM EDT, 16 unit =, subQ, Daily Start Date: 05/22/24 Status: Ordered Lexapro 20 mg oral tablet Start: 05/22/24 9:09:00 AM EDT, 1 tab, PO, Daily Start Date: 05/22/24 Status: Ordered losartan 25 mg oral tablet Start: 05/22/24 9:08:00 AM EDT, 1 tab, PO, Daily Start Date: 05/22/24 Status: Ordered metFORMIN 1000 mg oral tablet Start: 05/22/24 9:07:00 AM EDT, 1 tab, PO, bid Start Date: 05/22/24 Status: Ordered methIMAzole 5 mg oral tablet Start: 05/22/24 9:10:00 AM EDT, 1 tab, PO, Daily Start Date: 05/22/24 Status: Ordered metoprolol succinate 25 mg oral tablet, extended release Start: 05/22/24 9:11:00 AM EDT, 1 tab, PO, Daily Start Date: 05/22/24 Status: Ordered Mental Status 08/29/24 Barriers to Learning one year None evide nt Mandatory Health Literacy Documentation Yes Health Literacy Communication Barriers N ever Primary Language Hungarian Problem List Condition Confirmation Course Effective Dates Status Health St atus Informant Low back pain Confirmed Active Diagnosis Diagnosis Type Effective Dates Health Status Clinical Service Informant Low back pain Discharge Diagnosis 08/29/24 Non-Specified Compression fracture of vertebra Discharge Diagnosis 08/29/24 Non-Specified Facet arthropathy Discharge Diagnosis 08/29/24 Non-Specified Lumbar radiculopathy Discharge Diagnosis 08/29/24 Non-Specified Procedures Procedure Date Related Diagnosis Body Site Status EGD - esophagogastroduodenoscopy 1 06/12/23 Completed 1Normal esophagus, stomach and examined duoenum. No specimens collected. Social History Social History Type Response Smoking Status Never smoked cigaret ness Sex Female Sex Representation Female (finding) Patient Care team information Care Team Personnel Name: EMILY Douglas Joanne C Position: Referring Member Role: Primary Care Provider Address: [address] [place] [address] Care Team Related Persons Name: ROOPA KIRK Name: OUSMANE MONGE
--- OUTSIDE RECORDS SUMMARY | 2024-10-28 20:26 | External Medical Summary | Summary of Care ---
Author Name Unknown Organization [facility] Address [address] [place] [address] Phone [phone] Care Team Providers Care Marble Cutter Operator Name Role Phone Avelina Douglas EMILY Primary Care Provider Encounter Details Date Type Department Care Team (Late st Contact Info) Description 08/12/2024 Orders Only Hematology/Oncology Treatment, [place] [address] [place] [phone] Marko Calloway MD [address] [place] [address] Allergies Active Allergy Reactions Criticality Noted Date Comments Levofloxacin Other (Please comment) 05/26/2017 Cramping pains Nitrofurantoin Nausea/vomiting,Othe r (Please comment) 08/26/2022 Dizziness Propofol Nausea/vomiting 01/03/2018 documented as of this encounter (statuses as of 08/12/2024) Medications acetaminophen (TYLENOL) 500 MG Tablet Take 1 Tablet by mouth every 6 hours as needed for Pain. Active Dextrose, Diabetic Use, (GLUCOSE) 15 GM/33GM GEL Take by mouth. Act maryanne atorvaSTATin (LIPITOR) 20 MG Tablet Take 1 Tablet by mouth in the morning. 30 Tab 5 8 Active insulin aspart (INSULIN ASPART) 100 UNIT/ML injectionIndicat ions:Diabetes mellitus type 2, insulin dependent (HCC) Inject under skin per sliding scale 2 Vial 5 8 Active apixaban (ELIQUIS) 5 MG TabletIndication s:Chronic atrial fibrillation (HCC),Other acute pulmonary embolism without acute cor pulmonale (HCC) Take 1 Tab by mouth 2 times a day. 60 Tab 5 8 Active LANTUS SOLOSTAR 100 UNIT/ML SOPNIndications: Diabetes mellitus type 2, insulin dependent (HCC) Inject 16 Units under the skin in the morning. 1 Pre-filled Pen Syringe Dosing Unit 5 8 Active metFORMIN ER (GLUCOPHAGE XR) 500 MG [id number]: Diabetes mellitus type 2, insulin dependent (HCC) Take 2 Tabs by mouth daily. 60 Tab 11 8 Active Additional Information Patient taking differently: 500 mgOralBID (.AM/PM), Reported on 08/26/2022 loperamide (IMODIUM) 2 MG CapsuleIndicatio ns:Diarrhea, unspecified type Take 1 Cap by mouth [...] by mouth in the morning. 2 Active hydroCHLOROthiaz africa 25 MG Oral Tablet (Hydrodiuril) Take one tablet 2-3 days per week for edema, HTN 36 Tablet 3 2 Active Ondansetron HCl 4 MG Oral Tablet (Zofran) Take 1 Tablet by mouth as needed. 2 Active Iron-Vitamin C 65-125 MG Oral Tablet (Vitron C)Indications:An emia, unspecified type TAKE 1 TABLET BY MOUTH [...] MG Oral Capsule Extended Release 24 Hour (Dilt-XR)Indicat ions:Cecal cancer (HCC),Atrial fibrillation, unspecified type (HCC) Take 1 Capsule by mouth in the morning. 30 Capsule 4 Active Losartan Potassium 25 MG Oral Tablet (Cozaar)Indicati ons:Essential hypertension TAKE 1 TABLET BY MOUTH DAILY 90 Tablet 3 4 Active Gemtesa 75 MG Oral Tablet Take 1 Tablet by mouth in the morning. 90 Tablet 3 4 Active Nystatin 870086 UNIT/GM External Powder (Nystop) Apply topically to affected area 2 times a day. 60 g 4 Active Fluconazole 150 MG Oral Tablet (Diflucan) Take 1 Tablet by mouth once a week. 6 Tablet 4 Active documented as of this encounter (statuses as of 08/12/2024) Active Problems Problem Noted Date Diagnosed Date History of colon cancer 06/14/2024 Iron deficiency anemia due to chronic blood [...] as of this encounter (statuses as of 08/12/2024) Immunizations Name Administration Dates Next Due COVID-19 mRNA, LNP-s, No Pre serve, 2-Dose Series (Moderna) 05/10/2021,10/25/2020,09/20/2020 Covid-19, Mrna, Lnp-s, Pf, B ivalent, 30 Mcg, IM, 12 yrs and above (Pfizer) 06/03/2022 Pneumococcal Conjugate Vacc, 13 Valent (Prevnar) 10/03/2015 Pneumococcal Polysaccharide PPV23 (Pneumovax) 08/12/2017 Seasonal Influenza Vac., MDV , IM, 0.5 mL (Fluzone) 07/03/2017 Seasonal Influenza, Quadriva lent Hd, 65+ Yrs 06/03/2022,07/03/2017 Varicella Zoster Vaccine (Adult) 09/02/2012 Zoster Vaccine [...] years and over) Not on file 02/13/2024 Comments No Sex and Gender Information Value Date Recorded Sex Assigned at Not on file Legal Sex Female 11:07 AM EST Gender Identity Not on file Sexual Orientation Not on file documented as of this encounter Functional Status * Are you deaf or do you have serious difficulty hearing? Answer Date of Assessment Author No 08/27/2017 8:19 PM Destini Petty, RN * Are you blind or do you have serious difficulty seeing, even when wearing glasses? Answer Date of Assessment Author No 08/27/2017 8:19 PM Destini Petty RN * Do you have serious difficulty walking or climbing stairs? (5 years old or older) Answer Date of Assessment Author Yes 08/27/2017 8:19 PM Destini Petty RN * Do you have difficulty dressing or bathing? (5 years old or older) Answer Date of Assessment Author Yes 08/27/2017 8:19 PM Destini Petty RN * Because of a physical, mental, or emotional condition, do you have difficulty doing errands alone such as visiting a doctors office or shopping? (15 years old or older) Answer Date of Assessment Author No 08/27/2017 8:19 PM Destini Petty RN documented as of this encounter Mental Status * Because of a physical, mental, or emotional condition, do you have serious difficulty concentrating, remembering, or making decisions? (5 years old or older) Answer Entry Date Author No 08/27/2017 8:19 PM Destini Petty RN documented in this encounter Plan of Treatment Upcoming Encounters Date Type Department Care Team (Late st Contact Info) Description 08/14/2024 2:00 PM EST Hem/Onc Treatment Hematology/Oncology Treatment, [place] [address] [place] [address] 01/02/2025 3:00 PM EDT Office Visit Hematology/Oncology [facility] [address] [place] [phone] Marko Calloway MD 200 [place] [id number] Health Maintenance Due Date Last Done Comments Depression Screening 1949 Albumin/Creatinine Ratio 1955 Diabetic Eye Exam 1955 DTap/Tdap Vaccines (1 - Tdap) 1956 VITAMIN D LEVEL ONCE IN A LIFETIME-USE SMARTSET# 16901 1977 DXA Scan 1987 Diabetic Foot Exam 10/03/2018 10/03/2017 COVID-19 Vaccine ( season) 2024 06/09/2023, 06/03/2022, 05/10/2021, Additional history exists Influenza Vaccine (FLU shot) (#1) 2024 06/03/2022, 07/03/2017, 07/03/2017 *BISPHONATE OR OTHER ACCEPTABLE MEDICATION NEEDED FOR OSTEOPOROSIS (REFER TO SMARTSET #1146) 07/28/2024 B-12 10/19/2024 10/19/2023, 08/26/2022 HbA1c 12/12/2024 06/13/2024, 01/27, 11/16/2023, Additional history exists Pneumococcal Vaccine: 65+ Years Completed 08/12/2017, 10/03/2015 Zoster Vaccines Completed 07/31/2020, 09/2019, 09/02/2012 HPV (Gardasil) Vaccine Aged Out No lo nger eligible based on patient's age to complete this topic Hepatitis B Vaccine Aged Out No longe r eligible based on patient's age to complete this topic MENINGOCOCCAL (MENACTRA/MENVEO) Aged Out No longer eligible based on patient's age to complete this topic documented as of this encounter Medical Devices Implanted Type Area Apartment Assistant Manager Device Identifier Shelf Expiration Date Model / Serial / Lot Bard Peripheral Vascular [place] Vena Cava Filter Implanted:Qty: 1 on 08/23/2017 by Nato Singh DO at RAD[facility]OLOGY [facility] Abdomen 06/27/2020 [id number] / [id number] / [id number] Lens Li61ao 13.00mm 22.00 - [id number] - [id number] Implanted:Qty: 1 on 03/21/2023 by Augustine Duong MD at [facility] Left: Eye [employer] 11/26/2027 [id number] / [id number] Lens Li61ao 13.00mm 22.00 - [id number] - [id number] Implanted:Qty: 1 on 04/04/2023 by Augustine Duong MD at OR [facility] Right: Eye [employer]OM[employer] 12/26/2027 [id number] / [id number] / [id number] documented as of this encounter Advance Directives [...] Power of Attor tobin? No Care Teams Marble Cutter Operator Relationship Specialty Start Date End Date Avelina Douglas CRNP [address] [place] [address] PCP - General Nurse Practitioner 03/16/23 documented as of this encounter
--- OUTSIDE RECORDS SUMMARY | 2024-10-28 20:26 | External Medical Summary | Summary of Care ---
Author Name Unknown Organization [facility] Address [address] [place] [address] Phone [phone] Care Team Providers Care Solution Designer Name Role Phone Avelina Douglas EMILY Primary Care Provider Reason for Visit * Reason Onset Date Comments Advice 08/30/2024 Encounter Details Date Type Department Care Team (Late st Contact Info) Description 08/30/2024 Telephone Urogynecology [facility] [address] [place] [address] Services, Scheduling [address] [place] [address] Advice Allergies Active Allergy Reactions Criticality Noted Date Comments Levofloxacin Other (Please comment) 05/26/2017 Cramping pains Nitrofurantoin Nausea/vomiting,Othe r (Please comment) 08/26/2022 Dizziness Propofol Nausea/vomiting 01/03/2018 documented as of this encounter (statuses as of 08/30/2024) Medications acetaminophen (TYLENOL) 500 MG Tablet Take [...] Active metFORMIN ER (GLUCOPHAGE XR) 500 MG [id number]: Diabetes mellitus type 2, insulin dependent (HCC) [...] morning. 90 Tablet 3 4 Active Nystatin 435591 UNIT/GM External Powder (Nystop) Apply topically to affected area 2 times a day. 60 g 4 Active Fluconazole 150 MG Oral Tablet (Diflucan) Take 1 Tablet by mouth once a week. 6 Tablet 4 Active documented as of this encounter (statuses as of 08/30/2024) Active Problems Problem Noted Date Diagnosed Date [...] as of this encounter (statuses as of 08/30/2024) Immunizations Name Administration Dates Next Due COVID-19 [...] Author No 08/27/2017 8:19 PM Destini Petty, JANNETH * Are you blind or do you [...] Assessment Author No 08/27/2017 8:19 PM Destini Ptety RN documented as of this encounter Mental Status * Because of a physical, mental, or emotional condition, do you have serious difficulty concentrating, remembering, or making decisions? (5 years old or older) Answer Entry Date Author No 08/27/2017 8:19 PM Destini Petty RN documented in this encounter Miscellaneous Notes * Telephone Encounter - Jumana Nicole LPN - 08/30/2024 12:29 PM EST Received message that pt is asking if she has a yeast infection d/t itchy body, hands, face, palms of hands and legs. No rash. Call placed to pt to advise to reach out to PCP to assist. Pt noted thatshe did call PCP * Telephone Encounter - Lili Mishra OSA - 08/30/2024 11:21 AM EST Pt was calling clinic due to "Do I have a yeast infection?". Pt is stating her entire body is itchy, face, hands, palms of hands, and legs. No Rash. Pt is stating she will be also reaching out to PCP regarding symptoms. Pt seeking advise. documented in this encounter Plan of Treatment Upcoming Encounters Date Type Department Care Team (Late st Contact Info) Description 09/11/2024 10:50 AM EST Laboratory Laboratory, [address] [place] [phone] [place], Hans Alegria [address] [place] [address] 01/02/2025 3:00 PM EDT Office Visit Hematology/Oncology [facility] [place] [address] [facility] [address] [place] [phone] Marko Calloway MD [address] [facility] [address] Health Maintenance Due Date Last Done Comments Depression Screening 1949 Albumin/Creatinine Ratio 1955 Diabetic Eye Exam 1955 DTap/Tdap Vaccines (1 - Tdap) 1956 VITAMIN D LEVEL ONCE IN A LIFETIME-USE SMARTSET# 46562 1977 DXA Scan 1987 Diabetic Foot Exam 10/03/2018 10/03/2017 COVID-19 Vaccine ( season) 2024 06/09/2023, 06/03/2022, 05/10/2021, Additional history exists Influenza Vaccine (FLU shot) (#1) 2024 06/03/2022, 07/03/2017, 07/03/2017 *BISPHONATE OR OTHER ACCEPTABLE MEDICATION NEEDED FOR OSTEOPOROSIS (REFER TO SMARTSET #1146) 07/28/2024 B-12 10/19/2024 10/19/2023, 08/26/2022 HbA1c 12/12/2024 06/13/2024, 01/27, 11/16/2023, Additional history exists Pneumococcal Vaccine: 50+ Years Completed 08/12/2017, 10/03/2015 Zoster Vaccines Completed [...] this encounter Medical Devices Implanted Type Area Keyseating Machine Set Up Operator Device Identifier Shelf Expiration Date Model / Serial / Lot Bard Peripheral Vascular [place] Vena Cava Filter Implanted:Qty: 1 on 08/23/2017 by Nato Singh DO at RAD[facility]OLOG[facility] Abdomen 06/27/2020 [id number] / [id number] / [id number] Lens Li61ao 13.00mm 22.00 - [id number] - [id number] Implanted:Qty: 1 on 03/21/2023 by Augustine Duong MD at OR [facility] Left: Eye [employer] 11/26/2027 [id number] / [id number] / [id number] Lens Li61ao 13.00mm 22.00 - [id number] - [id number] Implanted:Qty: 1 on 04/04/2023 by Augustine Duong MD at OR [facility] Right: Eye [employer]OMB 12/26/2027 [id number] / [id number] / [id number] documented as of this encounter Advance Directives [...] Power of Attor tobin? No Care Teams Solution Designer Relationship Specialty Start Date End Date Avelina Douglas CRNP [address] [place] [address] PCP - General Nurse Practitioner 03/16/23 documented as of this encounter
--- OUTSIDE RECORDS SUMMARY | 2024-10-28 20:26 | External Medical Summary | Summary of Care ---
Author Name Unknown Organization [facility] Address [address] [place] [address] Phone [phone] Care Team Providers Care Block Placer Name Role Phone Avelina Douglas Javier EMILY Primary Care Provider Reason for Visit * Reason Comments Infusion Venofer 11/29 Encounter Details Date Type Department Care Team (Latest Contact Info) Description 08/14/2024 2:00 PM EST Hem/Onc Treatment Hematology/Oncology Treatment, [place] [address] [place] [address] History of colon cancer*; Iron deficiency anemia due to chronic blood loss Allergies Active Allergy Reactions Criticality Noted Date Comments Levofloxacin Other (Please comment) 05/26/2017 Cramping pains Nitrofurantoin Nausea/vomiting,Othe r (Please comment) 08/26/2022 Dizziness Propofol Nausea/vomiting 01/03/2018 documented as of this encounter (statuses as of 09/06/2024) Medications acetaminophen (TYLENOL) 500 MG Tablet Take [...] Active metFORMIN ER (GLUCOPHAGE XR) 500 MG [id number]: Diabetes mellitus type 2, insulin dependent (HCC) [...] morning. 90 Tablet 3 4 Active Nystatin 504923 UNIT/GM External Powder (Nystop) Apply topically to affected area 2 times a day. 60 g 4 Active Fluconazole 150 MG Oral Tablet (Diflucan) Take 1 Tablet by mouth once a week. 6 Tablet 4 Active documented as of this encounter (statuses as of 09/06/2024) Active Problems Problem Noted Date Diagnosed Date [...] as of this encounter (statuses as of 09/06/2024) Immunizations Name Administration Dates Next Due COVID-19 [...] Sign Reading Time Taken Comments Blood Pressure 150/73 08/14/2024 2:28 PM EST Pulse 87 08/14/2024 2:28 PM EST Temperature 36.6 C (97.9 F) 08/14/2024 2:28 PM ES T Respiratory Rate 18 08/14/2024 2:28 PM EST Oxygen Saturation 91% 08/14/2024 2:28 PM EST Inhaled Oxygen Concentration - - Weight - - Height - - Body Mass Index - - documented in this encounter Functional Status * Are you deaf or do you have serious difficulty hearing? Answer Date of Assessment Author No 08/27/2017 8:19 PM Destini Petty RN * Are you blind or do [...] Destini Petty RN documented in this encounter Nursing Notes * Etelvina Wakefield RN - 08/14/2024 3:46 PM EST Patient tolerated treatment without issue. PIV removed intact. Pt discharged in stable condition. * Brinda Soriano LPN - 08/14/2024 2:28 PM EST 1350: Pt arrived for Venofer infusion. PIV in LFA. Pt tolerated well. VSS. Pt is resting quietly atthis time. Patient instructed on use of heat and massage functions where applicable. Patient shown how to operate the heat function of the chair and to alert nursing staff if the chair feels too warm. Patient instructed on the risk of potential muniz while using the heat function. documented in this encounter Plan of Treatment Upcoming Encounters Date Type Department Care Team (Late st Contact Info) Description 09/11/2024 10:50 AM EST Laboratory Laboratory, [address] [place] [phone] [place], Laboratory [address] [facility] [place] [address] 01/02/2025 3:00 PM EDT Office Visit Hematology/Oncology [facility] [place] [address] [facility] [place] [phone] Marko Calloway MD [address] [facility] [place] [address] Health Maintenance Due Date Last Done Comments Depression Screening 1949 Albumin/Creatinine Ratio 1955 Diabetic Eye Exam 1955 DTap/Tdap Vaccines (1 - Tdap) 1956 VITAMIN D LEVEL ONCE IN A LIFETIME-USE SMARTSET# 94787 1977 DXA Scan 1987 Diabetic Foot Exam [...] this encounter Medical Devices Implanted Type Area Red Leader Device Identifier Shelf Expiration Date Model / Serial / Lot Bard Peripheral Vascular [place] Vena Cava Filter Implanted:Qty: 1 on 08/23/2017 by Nato Singh DO [place] [facility] [place]domen 06/27/2020 [id number] / [id number] / [id number] Lens Li61ao 13.00mm 22.00 - [id number] - [id number] Implanted:Qty: 1 on 03/21/2023 by Augustine Duong MD at OR [facility] Left: Eye [employer]OMB 11/26/2027 [id number] / [id number] / [id number] Lens Li61ao 13.00mm 22.00 - [id number] - [id number] Implanted:Qty: 1 on 04/04/2023 by Augustine Duong MD at OR [facility] Right: Eye [employer]CH [employer]OMB 12/26/2027 [id number] / [id number] / [id number] documented as of this encounter Visit Diagnoses Diagnosis History of colon cancer- Primary Personal history of malignant neoplasm of large intestine Iron deficiency anemia due to chronic blood loss Iron deficiency anemia secondary to blood loss (chronic) documented in this encounter Administered Medications Inactive Administered Medications - up to 3 most recent administrations Medication Order MAR Action Action Date Dose Rate Site Iron Sucrose (Venofer) 300 mg in NSS 250 mL ivpb 300 mg, IV Piggyback, ONCE, 1 dose, On Mon08/14/24 at 1515, Administer over 90 MinutesIndications:History of colon cancer,Iron deficiency anemia due to chronic blood loss Start Infusion 08/14/2024 1:55 PM EST 300 mg 180 mL/hr NSS infusion 500 mL, Intravenous, at 50 mL/hr, CONTINUOUS, Starting on Mon08/14/24 at 1445, Until 08/14/24 at 1947Indications:History of colon cancer,Iron deficiency anemia due to chronic blood loss Start Infusion 08/14/2024 1:54 PM EST 500 mL 50 mL/hr documented in this encounter Advance Directives * [...] Power of Attor tobin? No Care Teams Block Placer Relationship Specialty Start Date End Date Avelina Douglas CRNP [address] [place] [address] PCP - General Nurse Practitioner 03/16/23 documented as of this encounter
--- OUTSIDE RECORDS SUMMARY | 2024-10-28 20:26 | External Medical Summary | Summary of Care ---
Author Name Unknown Organization [facility] Address [address] [place] [address] Phone [phone] Care Team Providers Care Car Sales Consultant Name Role Phone Avelina Douglas Javier EMILY Primary Care Provider Reason for Visit * Reason Comments Infusion Venofer / Encounter Details Date Type Department Care Team (Latest Contact Info) Description 08/14/2024 2:00 PM EST Hem/Onc Treatment Hematology/Oncology Treatment, [place] [address] [place] [address] History of colon cancer*; Iron deficiency anemia due to chronic blood loss Allergies Active Allergy Reactions Criticality Noted Date Comments Levofloxacin Other (Please comment) 05/26/2017 Cramping pains Nitrofurantoin Nausea/vomiting,Othe r (Please comment) 08/26/2022 Dizziness Propofol Nausea/vomiting 01/03/2018 documented as of this encounter (statuses as of 08/14/2024) Medications acetaminophen (TYLENOL) 500 MG Tablet Take [...] Active metFORMIN ER (GLUCOPHAGE XR) 500 MG [id number]: Diabetes mellitus type 2, insulin dependent (HCC) [...] morning. 90 Tablet 3 4 Active Nystatin 073984 UNIT/GM External Powder (Nystop) Apply topically to affected area 2 times a day. 60 g 4 Active Fluconazole 150 MG Oral Tablet (Diflucan) Take 1 Tablet by mouth once a week. 6 Tablet 4 Active documented as of this encounter (statuses as of 08/14/2024) Active Problems Problem Noted Date Diagnosed Date [...] as of this encounter (statuses as of 08/14/2024) Immunizations Name Administration Dates Next Due COVID-19 [...] Description 09/11/2024 10:50 AM EST Laboratory Laboratory, [facility] [address] [facility] [place] [id number] [facility] [address] [facility] [address] 01/02/2025 3:00 PM EDT Office Visit Hematology/Oncology [facility] [address] [place] [phone] Marko Calloway MD [address] [facility] [place] [address] Health Maintenance Due Date Last Done Comments Depression Screening 1947 Albumin/Creatinine Ratio 1955 Diabetic Eye Exam 1955 DTap/Tdap Vaccines (1 - Tdap) 1956 VITAMIN D LEVEL ONCE IN A LIFETIME-USE SMARTSET# [id number] 1977 DXA Scan 1987 Diabetic Foot Exam [...] this encounter Medical Devices Implanted Type Area Package Designer Device Identifier Shelf Expiration Date Model / Serial / Lot Bard Peripheral Vascular [place] Vena Cava Filter Implanted:Qty: 1 on 08/23/2017 by Nato Singh DO at [facility] Abdomen 06/27/2020 [id number] / [id number] / [id number] Lens Li61ao 13.00mm 22.00 - [id number] - [id number] Implanted:Qty: 1 on 03/21/2023 by Augustine Duong MD at OR [facility] Left: Eye [employer]OMB 11/26/2027 [id number] / [id number] / [id number] Lens Li61ao 13.00mm 22.00 - [id number] - [id number] Implanted:Qty: 1 on 04/04/2023 by Augustine Duong MD at OR [facility] Right: Eye BAUSCH & LOMB 12/26/2027 [id number] / [id number] / [id number] documented as of this encounter Visit Diagnoses [...] ONCE PRN Other, Hypersensitivity Reaction, Starting on Mon08/14/24 at 1339, Until Abby 08/15/24 at 1338, For 24 hoursIndications:History of colon cancer,Iron deficiency anemia due to chronic blood loss EPINEPHrine 1 MG/ML inj 0.3 mg 0.3 mg, Intramuscular, ONCE PRN Other, Hypersensitivity Reaction or Anaphylaxis, Starting on Mon08/14/24 at 1339, Until Abby 08/15/24 at 1338, For 24 hoursIndications:History of colon cancer,Iron deficiency anemia due to chronic blood loss hEParin 100 UNIT/ML Lock Flush inj 500 Units 500 Units (5 mL), IV Lock, PRN Other, IV Flush, Starting on Mon08/14/24 at 1339, Until Abby 08/15/24 at 1338, For 24 hours, Do not flush if lock, PICC, or central line not in place; IV infusing or unable to flush.Indications:History of colon cancer,Iron deficiency anemia due to chronic blood loss Hydrocortisone Sod Suc (PF) (Solu-Cortef) inj 100 mg 100 mg, IV Push, ONCE PRN Other, Hypersensitivity Reaction, Starting on Mon08/14/24 at 1339, Until Mon08/15/24 at 1338, For 24 hoursIndications:History of colon cancer,Iron deficiency anemia due to chronic blood loss NSS infusion 500 mL, Intravenous, at 50 mL/hr, CONTINUOUS, Starting on Mon08/14/24 at 1445, Until Mon08/15/24 at 0044Indications:History of colon cancer,Iron deficiency anemia due to chronic blood loss Start Infusion 08/14/2024 1:54 PM EST 500 mL 50 mL/hr oxygen GAS Inhalation, OXYGEN, First dose on Mon08/14/24 at 1600, Until Discontinued, Device/Managed by: Low [...] saturation is greater than or equal to 93%Indications:History of colon cancer,Iron deficiency anemia due to chronic blood loss sodium chloride 0.9 % flush central line 10 mL 10 mL, IV Push, PRN Other, IV Flush, Starting on Mon08/14/24 at 1339, Until Mon08/15/24 at 1338, For 24 hours, Do not flush if lock, PICC, or central line not in place; IV infusing or unable to flush.Indications:History of colon cancer,Iron deficiency anemia due to chronic blood loss Inactive Administered Medications - up to 3 [...] 1:55 PM EST 300 mg 180 mL/hr documented in this encounter Advance Directives [...] Power of Attor tobin? No Care Teams Car Sales Consultant Relationship Specialty Start Date End Date Avelina Douglas CRNP [address] [address] PCP - General Nurse Practitioner 03/16/23 documented as of this encounter
--- OUTSIDE RECORDS SUMMARY | 2024-10-28 20:26 | External Medical Summary | Summary of Care ---
Author Name Unknown Organization [facility] Address [address] [facility] [address] Phone [phone] Care Team Providers Care Peoplesoft Hcm Developer Name Role Phone Avelina Douglas EMILY Primary Care Provider Encounter Details Date Type Department Care Team (Late st Contact Info) Description 09/06/2024 Orders Only Hematology/Oncology [facility] Tiara Bernardo [address] [facility] [place] [phone] Marko Calloway MD [address] [place] [address] Iron deficiency anemia due to chronic blood [...] Active metFORMIN ER (GLUCOPHAGE XR) 500 MG [id number]: Diabetes mellitus type 2, insulin dependent (HCC) [...] morning. 90 Tablet 3 4 Active Nystatin 167269 UNIT/GM External Powder (Nystop) Apply topically to [...] Description 09/11/2024 10:50 AM EST Laboratory Laboratory, [facility] [facility] [place] [phone] [place], Laboratory [address] [facility] [place] [address] 01/02/2025 3:00 PM EDT Office Visit Hematology/Oncology Mae Bernardo [place] [address] [place] [phone] Marko Calloway MD [address] [place] [address] Scheduled Orders Name Type Priority Associated Diagnoses Orde r Schedule CBC WITH WBC DIFFERENTIAL Lab Routine Iron deficiency anemia due to chronic blood loss Expected: 09/11/2024, Expires: 09/06/2025 FERRITIN Lab Routine Iron deficiency anemia due to chronic blood loss Expected: 09/11/2024, Expires: 09/06/2025 IRON SCREEN, INCLUDING TIBC Lab Routine Iron deficiency anemia due to chronic blood loss Expected: 09/11/2024, Expires: 09/06/2025 Health Maintenance Due Date Last Done Comments Depression Screening 1949 Albumin/Creatinine Ratio 1955 Diabetic Eye Exam 1955 DTap/Tdap Vaccines (1 - Tdap) 1956 VITAMIN D LEVEL ONCE IN A LIFETIME-USE SMARTSET# [id number] 1977 DXA Scan 1987 Diabetic Foot Exam [...] this encounter Medical Devices Implanted Type Area Thread Weaver Device Identifier Shelf Expiration Date Model / Serial / Lot Bard Peripheral Vascular [place] Vena Cava Filter Implanted:Qty: 1 on 08/23/2017 by Nato Singh DO at [facility] Abdomen 06/27/2020 [id number] / [id number] / [id number] Lens Li61ao 13.00mm 22.00 - [id number] - [id number] Implanted:Qty: 1 on 03/21/2023 by Augustine Duong MD at OR [facility] Left: Eye BAUSCH & LOMB 11/26/2027 [id number] / [id number] Lens Li61ao 13.00mm 22.00 - [id number] - [id number] Implanted:Qty: 1 on 04/04/2023 by Augustine Duong MD at OR [facility] Right: Eye BAUSCH & LOMB 12/26/2027 [id number] / [id number] / [id number] documented as of this encounter Visit Diagnoses Diagnosis Iron deficiency anemia due to chronic blood loss- Primary Iron deficiency anemia secondary to blood loss (chronic) documented in this encounter Advance Directives * [...] Power of Attor tobin? No Care Teams Peoplesoft Hcm Developer Relationship Specialty Start Date End Date Avelina Douglas CRNP [address] [address] PCP - General Nurse Practitioner 03/16/23 documented as of this encounter
--- OUTSIDE RECORDS SUMMARY | 2024-10-28 20:26 | External Medical Summary ---
Author Name Unknown Address Unknown Organization K01:LABORATORY [facility] [place] - [address] [place] [address] Laboratory Report Ordering Provider Test Date Status FRANKIE BERKOWITZ 08/29/2024 09:24:28 Final Observation Date Value Abnormality Reference (Units ) Status TSH 08/29/2024 09:24:28 4.54 Above high normal 0. 27-4.20 (uIU/mL) Final Performing Location LABORATORY C - [address] [place] [address]
--- OUTSIDE RECORDS SUMMARY | 2024-10-28 20:26 | External Medical Summary ---
Author Name Unknown Address Unknown Organization K01:[facility] [place] [address] [facility] [address] Laboratory Report Ordering Provider Test Date Status FRANKIE BERKOWITZ 09/12/2024 10:06:59 Final Observation Date Value Abnormality Reference (Units ) Status Color of Urine by Auto 09/12/2024 10:06:59 Light Yellow Colorless, Light Yellow, Yellow, Dark Yellow Final Clarity, Urine 09/12/2024 10:06:59 Clear Clear Final Glucose [Mass/volume] in Urine by Automated test strip 09/12/2024 10:06:59 Negative Negative (mg/dL) Final Bilirubin.total [Presence] in Urine by Automated test strip 09/12/2024 10:06:59 Negative Negative Final Ketones [Mass/volume] in Urine by Automated test strip 09/12/2024 10:06:59 Negative Negative (mg/dL) Final Specific gravity, Urine 09/12/2024 10:06:59 1.019 1.003-1.030 Final Hemoglobin [Presence] in Urine by Automated test strip 09/12/2024 10:06:59 Negative Negative Final pH, Urine 09/12/2024 10:06:59 5.5 5.0-7.5 (Units) Final Protein [Mass/volume] in Urine by Automated test strip 09/12/2024 10:06:59 Trace Abnormal Negative (mg/dL) Final Urobilinogen [Mass/volume] in Urine by Automated test strip 09/12/2024 10:06:59 Normal Normal (mg/dL) Final Nitrite [Presence] in Urine by Automated test strip 09/12/2024 10:06:59 Negative Negative Final Leukocyte esterase [Presence] in Urine by Automated test strip 09/12/2024 10:06:59 Large Abnormal Negative Final RBC, Urine 09/12/2024 10:06:59 3-5 Abnormal 0-2 (/HPF) Final WBC, Urine 09/12/2024 10:06:59 50+ Abnormal 0-2 (/HPF) Final Bacteria [#/area] in Urine sediment by Microscopy high power field 09/12/2024 10:06:59 101-150 Abnormal 0-25 (/HPF) Final Performing Location [facility] [place] [address] [facility] [address]
--- OUTSIDE RECORDS SUMMARY | 2024-10-28 20:26 | External Medical Summary ---
Author Name Unknown Address Unknown Organization K01:LABORATORY [facility] [place] - [address] [place] [address] Laboratory Report Ordering Provider Test Date Status FRANKIE BERKOWITZ 09/12/2024 10:06:59 Final Observation Date Value Abnormality Reference (Units ) Status Iron 09/12/2024 10:06:59 80 33-151 (ug/dL) Final Iron-binding capacity 09/12/2024 10:06:59 215 Below low normal 250-425 (ug/dL) Final Transferrin Sat % 09/12/2024 10:06:59 37 15-55 (%) Final Performing Location LABORATORY [facility] [place] - [address] [place] [address]
--- OUTSIDE RECORDS SUMMARY | 2024-10-28 20:26 | External Medical Summary | Continuity of Care Document ---
Author Name Unknown Organization [id number] Address [address] [place] [phone] Care Team Providers Care Tour Manager Name Role Phone Avelina Douglas Primary Care Physician [phone] [id number] Date(s): 10/17/24 - 10/17/24 [facility] [address] [facility] [address] [address] Encounter Diagnosis Facet arthropathy(Discharge Diagnosis) - 10/17/24 Discharge Disposition: Home or Self Care Attending Physician: DO Morejon Jina Encounter Type: Clinic Allergies, Adverse Reactions, Alerts No Known Medication Allergies Medications ALPRAZolam 0.25 mg oral tablet Start: 05/22/24 9:09:00 AM EDT, 1 tab, PO, qhs, PRN: as needed for anxiety Start Date: 05/22/24 Status: Ordered Repeat number: 1 atorvastatin 20 mg oral tablet Start: 05/22/24 9:09:00 AM EDT, 1 tab, PO, Daily Start Date: 05/22/24 Status: Ordered Repeat number: 1 Diltia XT 180 mg/24 hours oral capsule, extended release Start: 05/22/24 9:10:00 AM EDT, 1 cap, PO, Daily Start Date: 05/22/24 Status: Ordered Repeat number: 1 Eliquis 5 mg oral tablet Start: 05/22/24 9:09:00 AM EDT, 1 tab, PO, bid Start Date: 05/22/24 Status: Ordered Repeat number: 1 Gemtesa 75 mg oral tablet Start: 05/22/24 9:09:00 AM EDT Start Date: 05/22/24 Status: Ordered Repeat number: 1 Lanmilan Solostar Pen 100 units/mL subcutaneous solution Start: 05/22/24 9:08:00 AM EDT, 16 unit =, subQ, Daily Start Date: 05/22/24 Status: Ordered Repeat number: 1 Lexapro 20 mg oral tablet Start: 05/22/24 9:09:00 AM EDT, 1 tab, PO, Daily Start Date: 05/22/24 Status: Ordered Repeat number: 1 losartan 25 mg oral tablet Start: 05/22/24 9:08:00 AM EDT, 1 tab, PO, Daily Start Date: 05/22/24 Status: Ordered Repeat number: 1 metFORMIN 1000 mg oral tablet Start: 05/22/24 9:07:00 AM EDT, 1 tab, PO, bid Start Date: 05/22/24 Status: Ordered Repeat number: 1 methIMAzole 5 mg oral tablet Start: 05/22/24 9:10:00 AM EDT, 1 tab, PO, Daily Start Date: 05/22/24 Status: Ordered Repeat number: 1 metoprolol succinate 25 mg oral tablet, extended release Start: 05/22/24 9:11:00 AM EDT, 1 tab, PO, Daily Start Date: 05/22/24 Status: Ordered Repeat number: 1 Mental Status 10/17/24 Barriers to Learning one year None evide nt Mandatory Health Literacy Documentation Yes Health Literacy Communication Barriers N ever Primary Language Burkinan Problem List Condition Confirmation Course Effective Dates Status Health atus Informant Facet arthropathy Confirmed Active Low back pain Confirmed Active Diagnosis Diagnosis Type Effective Dates Health Status Clinical Service Informant Facet arthropathy Discharge Diagnosis 10/17/24 Non-Specified Procedures Procedure Date Related Diagnosis Body Site Status EGD - esophagogastroduodenoscopy 1 06/12/23 Completed 1Normal esophagus, stomach and examined duoenum. No specimens collected. Vital Signs Most recent to oldest [Reference Range]: 1 Height 167.64 cm (10/18/24 2:25 PM) Patient Weight 63.5 kg (10/18/24 2:25 PM) Body Mass Index 22.6 kg/m2 (10/18/24 2:25 PM) Social History Social History Type Response Smoking Status Never smoked cigaret ness Sex Female Sex Representation Female (finding) Ortho Outpt Note * DO Morejon Jina: PERFORM, MODIFY Event Display: Ortho Outpt Note Authored Date: [id number] Name:GISELE SINGH Patient Number:[id number] :1935 Date of Service:10/16/2024 Primary Care Provider: EMILY Savage Joanne C Referred by: MD Sergio, Doug Initial Evaluation Chief Complaint:Rachel Simmons presents with bilateral low back pain that radiates down theback of both of the thighs. History of Present Illness: Onset:2 years_ago after lifting a heavy pot of trimble and then fell about 8 months ago and injured her back. She sustained an L2 compression fracture. Prior trauma / injury/ surgeryof the affected area(s):yesas above Duration / Timing of Symptoms:Intermittent, Worse at the end of the day oPain has beenstablesince onset Characteristic of Symptoms:_tiredness oAssociated Neuropathic Symptoms:_radiatingpain down back of thighs oAssociated Mechanical Joint Symptoms:_right knee is known to be unstable, she wears a brace for this Alleviating Factors:standing, lying down Aggravating Factors:_when standing at the sink or at the counter and walking Spine or Limb Pain Worse:Spine pain is greater than limb pain Treatments Tried: oMedications: Current:Tylenol Previous:_none, maybesteroids a while ago oTherapeutic Exercise:_in PT right now oInjections:_Si joint inj July 18 oOther:heat Functional Status: oWork Status:_retired oADLs:_difficulty making her bed and standing at the counter and doing dishes Previous Work-Up:_Dr. Bahena oPrior diagnostic tests:_CT lumbar 03/2024 Red Flags:deniesred flag symptoms offever, chills, bowel dysfunction, saddle anesthesia, urology previously diagnosed the patient with stress incontinence and is under the care of a urologist endorseshx of colon cancer, treated Problems: Low back pain Procedure History Procedure Procedure Date Comments EGD - esophagogastroduodenoscopy 06/12/2023 -Normal esophagus, stomach and examined duoenum. No specimens collected. Social History: No qualifying data available. Medication List Active Medications Ordered ALPRAZolam: 1 tab, PO, qhs, PRN: as needed for anxiety. apixaban: 1 tab, PO, bid. atorvastatin: 1 tab, PO, Daily. dilTIAZem: 1 cap, PO, Daily. escitalopram: 1 tab, PO, Daily. insulin glargine: 16 unit, subQ, Daily. losartan: 1 tab, PO, Daily. metFORMIN: 1 tab, PO, bid. methIMAzole: 1 tab, PO, Daily. metoprolol: 1 tab, PO, Daily. vibegron: Start: 05/22/24 9:09:00 EDT. Medications Inactivated in the Last 72 Hours No medications found. Allergies (1) ActiveReaction No Known Medication AllergiesNone Documented Family History: No family history recorded. Review of Systems: A comprehensive review of systems was negative except for pertinent items noted in HPI. Physical Examination: Vital Signs: No Vitals Over the Past 24 Hours Found General: Alert and oriented.Patient in no apparent distress. Psych: Affect normal and appropriate. HEENT: Head normocephalic and atraumatic. Neck is supple. Chest: Breathing is non-labored. Skin: There are no gross skin lesions. Gait:Wide based gait, Antalgic, walks with rolling walker Lumbar Spine: Inspection: Skin intact. AROM:Pain-limited ROM, Unable to extend beyond neutralPain, at end range of extension, with ipsilateral oblique extension (facet joint loading)to the right Right side-bending, produces ipsilateral pain. Palpation:Tenderness over, Bilateral, paraspinal muscles/facet joints No tenderness:Right, and, Left, Sacroiliac/PSIS FAIR Test (Piriformis):Negative SI Joint Multitest Regimen of Pain Provocation Tests:Thigh thrust test (Femoral Shear test), Javid's sign (extreme JAS), Gaenslen test (pelvic torsion test)negativeDistraction test (gapping test), Compression test (approximation test)negative Vini's Sign, Negative Neuro: Sensation:Intact Strength:5/5 throughout bilateral lower limbs, except for the following:, Ankle DF (L4), EHL (L5)4/5 on the right, knee extension 3/5 on the right DTRs:2+ throughout bilateral lower limbs except for the following:, 1+, Patellar (L2-4), on the right Tests for lumbar radiculopathy: Slump (for radicular symptoms):, Negative Straight Leg Raise Test (Lasgue's sign):Negative Phalen's sign for radicular lumbar spinal stenosis (passive extension for up to 1 minute):negative Long tract signs (UMN signs):Ankle clonus, babinski sign, negative RECENT PERTINENT STUDIES: CT lumbar spine wo con CLINICAL HISTORY: R lower back pain s/p fall TECHNIQUE: Multidetector row helical CT of the lumbar spine was performed without administration of intravenous contrast. Coronal and sagittal reformations were obtained. Automated dose lowering techniques and/or adjustment according to patient size were utilized for this exam. CT DOSE: 2168.98 mGy.cm Comparison: None available at the time of this dictation. FINDINGS: For counting purposes, the last complete intervertebral disc space is considered L5-S1. There is an acute fracture of the superior endplate of L2 without retropulsion. Degenerative changes are noted in the visualized spine. Vertebral body alignment is within normal limits. IVC filter is seen. IMPRESSION: Acute fracture of the superior endplate of L2 without retropulsion. EMG/NCS: none ASSESSMENT: 1.BilateralLow BackPainradiating into back of both thighs with known compression fracture of the G4csbtyibz andwith known pacemaker and hx of osteoporosis/ on Prolia and hx of chronicweakness in the R leg due to hematoma LikelySpinal Stenosis givenbuttock / thigh / calf symptoms worsened with walking and improved with sitting LikelyconcomitantLumbar Facet-mediated Pain givenpain with extension, tenderness over facet joints, facet arthropathy seen on diagnostic imaging Scoliosis confirmed on diagnostic imaging Vertebral Compression Fracture seen on diagnostic imaging.Likely Possibly Radiculopathy given radicular complaints,motor deficits, asymmetric deeptendon reflex PLAN: Diagnostics: Lumbar MRI without contrast Injections: If symptoms persist, consider:ILESI vs MBB ( Dr. Shen is willing to do her RFA in the setting of known pacemaker) __If we proceed with ILESI we will need to reach out toDr. Holliday ( cardiology) about holding Eliquis _ Medications: Recommend, Tylenol 500 mg 1-2 tabs Q8H PRN _ Modalities: None at this time Orthotics:/DME None at this time Therapeutic exercise: _Patient has done extensive PT, she would like topause at this time. Consult: none at this time Education: A lengthy discussion was held with the patient regarding their diagnosisandprognosis. We discussed workup and treatment strategies including physical therapy, pharmacologic management, injections, and surgery The patients questions were sought and answered satisfactorily. Other: Reviewed prior notes fromKARI Faye Follow-up visit: Scheduled for:follow up to coincide with completion of, diagnostic testing. Atfollow up we will discuss imaging results and need for MBB vs ILESI ( of note this is in the setting of known osteoporosis and pacemaker) Advised patient to seek urgent medical attention if they develop new onset progressive weakness and/or bowel/bladder dysfunction Veronique Morejon DO Sports Medicine and Interventional Spine Physical Medicine & Rehabilitation Total time on the date of the encounter which includes both the fcrv-yy-ekzw and gtl-owcz-or-face time personally spent by the physician and/or other qualified health direct care specialist(s) on the day of the encounter consisting of a total of50 minutes ( follow up level 5)including Medical Decision Making, preparing to see the patient (eg, review of tests), obtaining and/or reviewing separatelyobtained history, performing a medically appropriate examination and/or evaluation, counseling and educating the patient/family/caregiver,ordering medications, tests, or procedures,referring and communicating with other health social worker palliative care, documenting clinical information in the electronic or other health record, independently interpreting results (not separately reported) and communicating results to the patient/ family/caregiver, care coordination Electronic Signature on File Electronically Reviewed/Signed by: Veronique Morejon DO Author Signature Dt/Tm:10/17/2024 12:10 PM Division of Sports Medicine J[facility] Patient Care team information Care Team Personnel Name: EMILY Douglas Joanne C Position: Referring Member Role: Primary Care Provider Address: [address] [place] [address] Telecom: [phone] Care Team Related Persons Name: ROOPA KIRK Name: OUSMANE MONGE Insurance Providers Guarantor name: GISELE SINGH Health Plan Information #: 2 Payer: [employer] Member Number: [id number] Policy Number: NA Group Number: NA Health Plan Information #: 1 Payer: MEDICARE Member Number: [id number] Policy Number: NA Group Number: NA
--- OUTSIDE RECORDS SUMMARY | 2024-10-28 20:26 | External Medical Summary ---
Author Name Unknown Address Unknown Organization [id number]:[facility] [place] [address] [place] [id number] Laboratory Report Ordering Provider Test Date Status SHOFRANKIE 09/12/2024 10:06:59 Final Observation Date Value Abnormality Reference (Units) Status Bacteria identified in Specimen by Culture 09/12/2024 10:06:59 No significant growth Final Test: Culture, Urine, Quanti tative
Specimen Source: Urine, Clean Catch
Specimen Type: Urine
Specimen Date: 09/12/2024 1006
Result Date: 09/13/2024 1011
Result Status: Final result
Resulting Lab: [facility] [place]
[address]
[place] [address]

CULTURE

No significant growth

null Performing Location [facility] [place] - [address] [facility] [address]
--- OUTSIDE RECORDS SUMMARY | 2024-10-28 20:26 | External Medical Summary ---
Author Name Unknown Address Unknown Organization [id number]:[facility] [place] [facility] [address] [facility] [address] Laboratory Report Ordering Provider Test Date Status FRANKIE BERKOWITZ 09/12/2024 10:06:59 Final Observation Date Value Abnormality Reference (Units ) Status HbA1C 09/12/2024 10:06:59 8.1 Above high normal 4. 0-5.6 (%) Final The use of HbA1c to monitor glycemic status is based on normal hemoglobin and HbA composition. This test should not be used in patients with abnormal hemoglobin that affects the half life of the red blood cell or the in vivo glycation rates. Glucose, estimated average 09/12/2024 10:06:59 186 Above high normal <126 (mg/dL) Sridhar liriano Performing Location [facility] [place] [address] [facility] [place] [facility] [address]
--- OUTSIDE RECORDS SUMMARY | 2024-10-28 20:26 | External Medical Summary | Summary of Care ---
Author Name Unknown Organization [facility] Address [address] [facility] [place] [address] Phone [phone] Care Team Providers Care Box Blank Machine Feeder Name Role Phone Avelina Douglas Primary Care Provider Encounter Details Date Type Department Care Team (Late st Contact Info) Description 10/01/2024 Result Scan Unspecified Department Cole Holliday MD [address] [place] [address] <No scans attached> Allergies Active Allergy Reactions Criticality Noted Date Comments Levofloxacin Other (Please comment) 05/26/2017 Cramping pains Nitrofurantoin Nausea/vomiting,Othe r (Please comment) 08/26/2022 Dizziness Propofol Nausea/vomiting 01/03/2018 documented as of this encounter (statuses as of 10/02/2024) Medications acetaminophen (TYLENOL) 500 MG Tablet Take [...] Active metFORMIN ER (GLUCOPHAGE XR) 500 MG [id number]: Diabetes mellitus type 2, insulin dependent (HCC) [...] morning. 90 Tablet 3 4 Active Nystatin 075546 UNIT/GM External Powder (Nystop) Apply topically to affected area 2 times a day. 60 g 4 Active Fluconazole 150 MG Oral Tablet (Diflucan) Take 1 Tablet by mouth once a week. 6 Tablet 4 Active documented as of this encounter (statuses as of 10/02/2024) Active Problems Problem Noted Date Diagnosed Date [...] as of this encounter (statuses as of 10/02/2024) Immunizations Name Administration Dates Next Due COVID-19 [...] Care Team (Late st Contact Info) Description 01/02/2025 3:00 PM EDT Office Visit Hematology/Oncology [facility] [place] [address] [facility] [place] [address] Marko Calloway MD [address] [facility] [place] [address] Health Maintenance Due Date Last Done Comments Depression Screening 1949 Albumin/Creatinine Ratio 1955 Diabetic Eye Exam 1955 DTap/Tdap Vaccines (1 - Tdap) 1956 VITAMIN D LEVEL ONCE IN A LIFETIME-USE SMARTSET# 60577 1977 DXA Scan 1987 Diabetic Foot Exam 10/03/2018 10/03/2017 COVID-19 Vaccine ( season) 2024 06/09/2023, 06/03/2022, 05/10/2021, Additional history exists Influenza Vaccine (FLU shot) (#1) 2024 06/03/2022, 07/03/2017, 07/03/2017 *BISPHONATE OR OTHER ACCEPTABLE MEDICATION NEEDED FOR OSTEOPOROSIS (REFER TO SMARTSET #1146) 07/28/2024 B-12 10/19/2024 10/19/2023, 08/26/2022 HbA1c 03/12/2025 09/12/2024, 05/28, 02/22/2024, Additional history exists Pneumococcal Vaccine: 50+ Years Completed 08/12/2017, 10/03/2015 Zoster Vaccines Completed 07/31/2020, 1009/2019, 09/02/2012 HPV (Gardasil) Vaccine Aged Out No lo nger eligible based on patient's age to complete this topic Hepatitis B Vaccine Aged Out No longe r eligible based on patient's age to complete this topic MENINGOCOCCAL (MENACTRA/MENVEO) Aged Out No longer eligible based on patient's age to complete this topic documented as of this encounter Medical Devices Implanted Type Area Traveling Representative Device Identifier Shelf Expiration Date Model / Serial / Lot Bard Peripheral Vascular [place] Vena Cava Filter Implanted:Qty: 1 on 08/23/2017 by Nato Singh DO [place] [facility] [place] 06/27/2020 [id number] / [id number] / [id number] Lens Li61ao 13.00mm 22.00 - [id number] - [id number] Implanted:Qty: 1 on 03/21/2023 by Augustine Duong MD at OR [facility] Left: Eye [employer] 11/26/2027 [id number] / [id number] / [id number] Lens Li61ao 13.00mm 22.00 - [id number] - [id number] Implanted:Qty: 1 on 04/04/2023 by Augustine Duong MD at OR [facility] Right: Eye [employer]OM[employer] 12/26/2027 [id number] / [id number] / [id number] documented as of this encounter Procedures Procedure Name Priority Date/Time Associated Diagnosis Comments CARDIOLOGY SCANNED RESULT 10/01/2024 documented in this encounter Results * CARDIOLOGY SCANNED RESULT (10/01/2024) 10/01/2024 Cole Holliday MD OTHER Final Result documented in this encounter Advance Directives * [...] Power of Attor tobin? No Care Teams Box Blank Machine Feeder Relationship Specialty Start Date End Date Avelina Douglas CRNP [address] [place] [address] PCP - General Nurse Practitioner 03/16/23 documented as of this encounter
--- OUTSIDE RECORDS SUMMARY | 2024-10-28 20:26 | External Medical Summary ---
Author Name Unknown Address Unknown Organization K01:[facility] [place] [address] [place] [address] Laboratory Report Ordering Provider Test Date Status FRANKIE BERKOWITZ 09/12/2024 10:06:59 Final Observation Date Value Abnormality Reference (Units ) Status Ferritin 09/12/2024 10:06:59 560 Above high normal 13 -150 (ng/mL) Final Postmenopausal women have hi gher ferritin levels than pre-menopausal women. The above reference interval is based on pre-menopausal women. Performing Location [facility] [place] [address] [place] [address]
--- OUTSIDE RECORDS SUMMARY | 2024-10-28 20:26 | External Medical Summary ---
Author Name Unknown Address Unknown Organization K01:[facility] [place] [facility] [address] [place] [address] Laboratory Report Ordering Provider Test Date Status FRANKIE BERKOWITZ 09/12/2024 10:06:59 Final Observation Date Value Abnormality Reference (Units ) Status WBC, Total 09/12/2024 10:06:59 7.30 4.00-10.80 (K/uL) Final RBC 09/12/2024 10:06:59 4.24 3.85-5.15 (M/uL) Final Hemoglobin 09/12/2024 10:06:59 12.9 12.0-15.3 (g/dL) Final HCT 09/12/2024 10:06:59 42.5 36.0-45.2 (%) Final MCV 09/12/2024 10:06:59 100.2 81.5-97.5 (fL) Final MCH 09/12/2024 10:06:59 30.4 27.0-34.0 (pg) Final MCHC 09/12/2024 10:06:59 30.4 32.0-36.0 (g/dL) Final RDW 09/12/2024 10:06:59 14.8 11.5-15.5 (%) Final Platelets 09/12/2024 10:06:59 286 140-400 (K/uL) Final MPV 09/12/2024 10:06:59 9.7 6.6-11.1 (fL) Final Nucleated erythrocytes/100 leukocytes [Ratio] in Blood by Automated count 09/12/2024 10:06:59 0 <=0 (/100 WBCs) Final Performing Location [facility] [place] [address] [place] [address]
[2024-10-28] MEDS: ACETAMINOPHEN 500 MG TAB PO PRN (21:21)
[2024-10-28] MEDS: ALPRAZolam 0.25 MG TABLET PO SCH (21:22)
[2024-10-28] MEDS: FAMOTIDINE 20 MG TAB PO SCH (21:22)
[2024-10-28] MEDS: METOPROLOL SUCC 50MG EXT REL TAB PO SCH (21:23)
[2024-10-28] MEDS: DOCUSATE SODIUM/SENNA 50/8.6MG TAB PO SCH (21:23)
[2024-10-28] MEDS: methIMAzole 5 MG TABLET PO SCH (21:24)
--- NOTE | 2024-10-29 07:04 | Hospitalist Progress Note ---
Date of Service October 29, 2024 Assessment & Plan (1) Closed left hip fracture: (2) Paroxysmal atrial fibrillation: (3) Diabetes mellitus, type 2: (4) Hyperthyroidism: (5) Depression: (6) Adenocarcinoma of colon: Plan Anastasiia is a 89-year-old female with ground-level fall sustaining left hip fracture patient will be seen by [facility] orthopedics. Other chronic problems include diabetes, atrial fibrillation, hyperthyroidism, previous vertebral fractures, permanent pacemaker and history of colon cancer. #Left hip fracture -Pt is scheduled for Left hip fracture repair on 10/29 - n.p.o. after midnight - Stopped Eliquis 10/28 in prep for surgical procedure - She will have SCDs for DVT prevention - IV morphine for pain control, using supplemental O2 for respiratory support - Awaiting recommendations from ortho following surgery # History of atrial fibrillation - hold Eliquis, will resume following surgery - continue metoprolol and diltiazem for rate control. # Hypertension - Losartan held avoid orthostatic hypotension - May resume post op day 1, pending BP tends # Diabetes mellitus Patient's home meds are glargine and metformin - Holding metformin and Glargine - Initiated Sliding scale insulin while n.p.o. - Consider restarting glargine when pt resumes regular diet # Hypothyroidism - continue methimazole # Anxiety/depression - Continue alprazolam and escitalopram Diet- NPO Code- DNR/DNI Dispo- med/surg Admission and Anticipated Discharge Date Admission Date: October 28, 2024 Supervising Physician Co-Signing Physician Notes Patient was seen and examined independently I discussed the case with Love NARANJO I reviewed pertinent past medical social family history and also the plan of care and agree with the plan of care. Pleasantly confused in the company of her family scheduled for surgery no focal problems or complaints Cardiac exam is regular though history of atrial fibrillation is not shortened but tender to examination 89-year-old female with ground-level fall sustaining left hip fracture patient will be seen by [facility] orthopedics.. Other chronic problems include diabetes atrial fibrillation hypothyroidism previous vertebral fractures permanent pacemaker and history of colon cancer. #Left hip fracture patient will be brought in our facility EKG and chest x-ray will be undertaken. She will have SCDs for DVT prevention will evaluate her cardiopulmonary risk.will hold Eliquis dosing Will control pain with parenteral opiate therapy History of atrial fibrillation, hold her Eliquis dose continue metoprolol and diltiazem for rate control. History hypertension patient takes losartan this will be held on postop day 1 to avoid orthostatic hypotension Diabetes mellitus. Patient typically takes glargine and metformin, (holding metformin) will have the patient on sliding scale insulin because of consideration of n.p.o. status will not have long-acting insulin at this point time. For her hypothyroidism continue methimazole Patient takes alprazolam and escitalopram for anxiety depression is to be continued Any exceptions will be noted below Subjective Anastasiia is an 89 yo female with PMH of paroxysmal a-fib, cardiac pacemaker, hyperthyroidism, HTN, and T2DM presented to ED s/p fall at her home. Pt likes at the [place]. Pt found to have left closed hip fracture on XR. This morning, pt reports resting comfortably after administration of morphine. She is currently on 2L of oxygen after receiving morphine. She does not use oxygen at home. Pt denies CP, SOB, abdominal pain, nausea, dizziness, headaches Review of Systems 2 Review of Systems: As per HPI Physical Exam Physical Exam: General: The patient appeared well nourished and normally developed. HEENT: Head exam is normocephalic atraumatic. Neck is without JVD, thyromegaly, or carotid bruits. Respiratory: Pt on 2L supplemental O2. No increased work of breathing noted. Lungs are clear to auscultation, no focal loss of breath sounds Cardiac: Regular rhythm, no murmur noted, cardiac pacemaker at left upper chest is without tenderness Abdominal: Non distended, normal bowel sounds, soft non tender, no masses Extremities: Nonedematous and both pedal pulses are present Neurologic: Alert and oriented, no focal loss of strength or sensation Skin: Warm, dry, no rashes Psych: Without concerns for anxiety or depression.. Results & Data Results & Data Vital Signs (Past 12 Hours) Vital Signs Temp Pulse Pulse Resp BP Pulse Ox O2 Del Method 10/29/24 03:00 36.4 C L 69 16 136/76 92 Nasal Cannula 10/28/24 23:41 36.4 C L 70 16 134/78 94 Nasal Cannula 10/28/24 21:18 36.6 C 73 16 155/97 H 92 Room Air 10/28/24 20:36 74 O2 Flow Rate 10/29/24 03:00 2 10/28/24 23:41 2 10/28/24 21:18 10/28/24 20:36 Resident Activity Tracking Resident Involvement: Resident Care Provided Care Provided: Adult Hospital Medicine
[2024-10-29 07:22] LABS: Calcium 8.6 mg/dl (8.6-10.3); Potassium 4.4 mmol/L (3.5-5.1)
[2024-10-29 07:27] LABS: Creatinine Clr Calc Pharmacy 40.7 ml/min
[2024-10-29] MEDS: MoRPHine SULFATE 2 MG/ML CARP IV PRN (08:07)
[2024-10-29 08:39] LABS: Estimated Average Glucose 166 mg/dl; Hemoglobin A1C 7.4 % (4.5-5.6)
--- NOTE | 2024-10-29 09:19 | Orthopedic Progress Note ---
Date of Service October 29, 2024 Assessment & Plan (1) Closed left hip fracture: Assessment: Left femoral neck fracture. Plan: We will proceed later this morning with surgical fixation of her left hip. Current surgical plan is with operative fixation utilizing either percutaneous screws versus Jarad bipolar arthroplasty. This will be decided by Dr. Schaffer later this morning. She should continue being n.p.o. at this time. Continue with bed rest. Medical management per primary. She is currently medically optimized for surgical intervention per hospitalist service. Continue current pain analgesic regimen. Will proceed later this morning with operative fixation. Subjective . Patient is an 89-year-old female who is doing well this morning with decent pain control. She is currently scheduled later this morning to undergo left hip percutaneous screw fixation versus Jarad bipolar with Dr. Schaffer. She still wishes to proceed with surgical intervention today. She denies any other concerns today. Review of Systems All systems reviewed & are unremarkable except as noted in HPI & below. Physical Exam . Constitutional: WD/WN, vitals as above no acute distress Musculoskeletal: On physical examination of the left hip, there is no erythema, ecchymosis, edema, or other obvious deformities. Tenderness to palpation diffusely throughout the left hip joint. No leg length discrepancies. Range of motion and strength not assessed at the hip joint secondary to known fracture. Intact plantarflexion dorsiflexion of the left ankle. +2 DP and PT pulses. Less than 2-second capillary refill. Normal sensation. Neurovascular intact. Results & Data Results & Data Laboratory Results . Diagnostic Findings . PG Care Time/CCT Total # of Minutes Spent Total Time Spent with Patient: Total time spent is greater than 50% in coordination of care (as documented) at patient's floor/unit and/or counseling patient: Coding Level of Care Code 63473 Post Operative Follow-Up Diagnoses Closed left hip fracture S72.002A
[2024-10-29] MEDS: ESCITALOPRAM OXALATE 20 MG TAB PO SCH (09:31)
[2024-10-29] MEDS: dilTIAZem HCL 180 MG CAPCR PO SCH (09:31)
[2024-10-29] MEDS ORDERED: ONDANSETRON INJ 2 MG/ML 2 ML VIAL ONE (14:54)
[2024-10-29] MEDS ORDERED: LIDOCAINE 2% 2 ML VIAL/AMP(20MG/ML) INFIL ONE (14:54)
[2024-10-29] MEDS ORDERED: PROPOFOL IV EMULSION 10 MG/ML 20 ML VIAL IV ONE (14:54)
[2024-10-29] MEDS ORDERED: fentaNYL citrate PF 100 MCG/2 ML VIAL ONE (14:54)
--- NOTE | 2024-10-29 15:04 | History & Physical Bridge Note ---
Date of Service October 29, 2024 History & Physical Bridge Note I have examined the patient, reviewed the History & Physical and in the interval since the performance of the consultation. I met with the patient and her daughter in the preoperative holding area. I explained that I will be taking over care from an orthopedic perspective. I reviewed the fracture pattern and treatment options. She has a femoral neck fracture that slightly impacted and well [id number] view. For that reason I think her best treatment option is internal fixation with cannulated screws. The alternative would be a hemiarthroplasty which is a slightly higher risk profile. Explained to the technique, purposes, implants, outcome expectations, required rehabilitation and overall plan for the day. She was knowledgeable of the topic from her from the initial consultation with the PA, demonstrated good understanding, asked questions, and wanted to proceed with surgery that I described. Her daughter was present for the discussion and assisted in the informed consent process. Informed consent was obtained for left femoral neck fracture internal fixation with cannulated screws.
--- NOTE | 2024-10-29 15:15 | Anesthesiology Consultation ---
Date of Service October 29, 2024 Assessment & Plan (1) Encounter for pre-operative examination: Chart Review Chart Review: Acceptable Risk for Surgery and Patient NOT seen in Pre Admission Testing Consults Requested none History Surgery Operation Date: 10/29/24 14:20 Proposed Procedures p Left Hip Cannulated Screws - Zion Singh MD Height/Weight Height: 5 ft 4 in Weight: 67.5 kg Allergies Allergy/AdvReac Type Severity Reaction Status Date / Time levofloxacin AdvReac Intermediate Muscle Verified 08/06/24 09:15 pain (difficulty with walking) nitrofurantoin AdvReac Intermediate headache/GI Verified 08/06/24 09:15 [From Macrobid] upset/nausea Medications Home Medications Medication Instructions Recorded Confirmed Last Taken alprazolam 0.25 mg tablet (Xanax) 0.25 mg PO HS Anxiety 09/02/18 10/28/24 10/27/24 insulin glargine 100 unit/mL 16 unit subcut HS 09/02/18 10/28/24 10/27/24 subcutaneous solution (Lantus U-100 Insulin) metformin 500 mg tablet 500 mg PO BID 09/02/18 10/28/24 10/28/24 am acetaminophen 500 mg tablet 1,000 mg PO Q6H PRN Pain 06/03/21 10/28/24 10/27/24 losartan 25 mg tablet 25 mg PO QAM #30 tabs 06/20/23 10/28/24 10/27/24 solifenacin 5 mg tablet (Vesicare) 5 mg PO QAM 07/25/23 10/28/24 10/27/24 methimazole 5 mg tablet 5 mg PO UD 11/18/23 10/28/24 Unknown diltiazem HCl 180 mg 180 mg PO QAM #30 caps 11/30/23 10/28/24 10/27/24 capsule,extended release 24 hr escitalopram oxalate 20 mg tablet 20 mg PO QAM #30 tabs 11/30/23 10/28/24 10/27/24 apixaban 5 mg tablet (Eliquis) 2.5 mg PO BID 03/28/24 10/28/24 10/28/24 am atorvastatin 20 mg tablet 20 mg PO QAM 10/28/24 10/28/24 10/27/24 denosumab 60 mg/mL subcutaneous 60 mg subcut .EVERY 6 MONTHS 10/28/24 10/28/24 10/23/24 syringe (Prolia) metoprolol succinate 100 mg 100 mg PO QAM 10/28/24 10/28/24 10/27/24 tablet,extended release 24 hr vibegron 75 mg tablet (Gemtesa) 75 mg PO QAM 10/28/24 10/28/24 10/27/24 Active Medications Generic Name Dose Route Start Last Admin Trade Name Sasha PRN Reason Stop Dose Admin Acetaminophen 1,000 mg 10/28/24 17:51 10/28/24 21:21 Acetaminophen 500 Mg Tab PO 11/27/24 17:50 1,000 mg Q6H PRN Administration Pain Alprazolam 0.25 mg 10/28/24 21:00 10/28/24 21:22 Alprazolam 0.25 Mg Tablet PO 11/27/24 20:59 0.25 mg HS NATANAEL Administration Diltiazem HCl 180 mg 10/29/24 09:00 10/29/24 09:31 Diltiazem Hcl 180 Mg Capcr PO 11/28/24 08:59 180 mg QAM NATANAEL Administration Escitalopram Oxalate 20 mg 10/29/24 09:00 10/29/24 09:31 Escitalopram Oxalate 20 Mg Tab PO 11/28/24 08:59 20 mg QAM NATANAEL Administration Famotidine 20 mg 10/28/24 21:00 10/29/24 09:36 Famotidine 20 Mg Tab PO 11/27/24 20:59 20 mg BID NATANAEL Administration Insulin Aspart 0 units 10/28/24 18:15 10/29/24 12:51 Insulin Aspart Per Unit Charge SC 11/27/24 18:14 Not Given ACHS NATANAEL Methimazole 5 mg 10/28/24 21:00 10/29/24 09:31 Methimazole 5 Mg Tablet PO 11/27/24 20:59 5 mg [id number],2100 NATANAEL Administration Metoprolol Succinate 100 mg 10/28/24 21:00 10/29/24 09:31 Metoprolol Succ 50mg Ext Rel Tab PO 11/27/24 20:59 100 mg BID NATANAEL Administration Morphine Sulfate 2 mg 10/28/24 17:51 10/29/24 08:07 Morphine Sulfate 2 Mg/Ml Carp IV 11/11/24 17:50 2 mg Q3H PRN Administration Pain (1,2,3,4,5) & Pre PT Senna/Docusate Sodium 2 tab 10/28/24 21:00 10/28/24 21:23 Docusate Sodium/Senna 50/8.6mg Tab PO 11/27/24 20:59 2 tab HS NATANAEL Administration NPO Date Last Intake of Fluids: 10/29/24 Time Last Intake of Fluids: 09:30 Last Intake of Fluids Comment: Sips with meds Date Last Intake of Solids: 10/28/24 Time Last Intake of Solids: 23:59 Past Medical History Medical History Anemia Blood transfusions several years ago (r/t DVTs/acute blood loss) Presence of IVC filter Chronic back pain Osteoarthritis Kidney stones Pancreatitis Remote hx Diabetes mellitus, type 2 IDDM Depression Anxiety BCC (basal cell carcinoma) Hyperlipidemia DVT (deep venous thrombosis) RLE/LLE 2016- developed 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 Holliday Hypertension Past Family History Family History Brother Family history of diabetes mellitus Brother Family history of diabetes mellitus Sister Family history of diabetes mellitus Grandmother (Paternal) Family history of diabetes mellitus Grandmother (Maternal) Breast cancer Denies family history of Ovarian cancer Colorectal cancer Past Surgical History Surgical History Status post right knee replacement History of esophagogastroduodenoscopy (EGD) History of cystoscopy Cystoscopy, b/l ureteronephroscopy, laser lithotripsy (11/07/19): LMA#4 iGel, atraumatic insertion at [facility] History of cardiac cath 2011 > no stents PONV (postoperative nausea and vomiting) History of total knee replacement Right History of colonoscopy History of appendectomy Status post Mohs surgery S/P epidural steroid injection History of cardiac radiofrequency ablation S/P cardiac pacemaker procedure Hx of tonsillectomy History of hysterectomy MARC and BSO Social History Smoking Status: Never smoker Do You Dip or Chew Tobacco: No Hx Alcohol Use: No Alcohol type: wine Hx Substance Use: No substance use type: does not use Physical Exam Vital Signs Last Vital Signs Temp 97.3 F L 10/29/24 15:11 Pulse 91 H 10/29/24 15:11 Resp 20 10/29/24 15:11 BP 109/68 10/29/24 15:11 Pulse Ox 92 10/29/24 15:11 O2 Del Method Room Air 10/29/24 15:11 O2 Flow Rate 2 10/29/24 11:00 Testing Laboratory Results 10/28/24 14:05 10/29/24 06:27 Hemoglobin A1c 7.4 % (4.5-5.6) H 10/29/24 06:27 Blood Type O Positive 10/28/24 20:48 Antibody Screen NEGATIVE 10/28/24 20:48 10/29/24 10/29/24 10/29/24 15:10 12:07 06:12 POC Glucose 114 H 130 H 118 H Electrocardiogram Date: 11/22/23 Findings: + AFIB @ Echocardiogram Date: 11/23/23 EF: 60-65 LV Function: normal
[2024-10-29] MEDS ORDERED: ONDANSETRON INJ 2 MG/ML 2 ML VIAL IV PRN (15:16)
[2024-10-29] MEDS ORDERED: ePHEDrine sulfate 50 MG/ML AMP IV PRN (15:16)
[2024-10-29] MEDS ORDERED: ATROPINE SULFATE 0.1 MG/ML 10ML SYR IV PRN (15:16)
[2024-10-29] MEDS: ceFAZolin 2000MG 2,000 MG/15 ML SYR IV SCH (15:30)
[2024-10-29] MEDS: TRANEXAMIC ACID / 0.7% NACL 1000MG/100ML BAG IV ONE (16:00)
[2024-10-29] MEDS ORDERED: PHENYLEPHRINE 100MCG/ML 5ML SYR ONE (16:48)
[2024-10-29] MEDS ORDERED: DEXAMETHASONE SOD INJ 4 MG/ML VIAL ONE (16:48)
[2024-10-29] MEDS: BUPIVACAINE/EPINEPHRINE 0.25% 1:200,000 30 ML VIAL ONE (16:50)
--- NOTE | 2024-10-29 17:05 | Operative Report ---
PG Post Operative Report Pre & Post Diagnosis Operation Date: 10/29/24 14:20 Pre-Op Diagnosis: Closed left femoral neck fracture Post-Op Diagnosis: Closed left femoral neck fracture I identified the patient and participated in the time-out.: Yes Procedure Operation Date: 10/29/24 14:20 Actual Procedures p Left femoral neck fracture Cannulated Screw Fixation(Left) - Zion Singh MD Surgeon Zion Singh MD Instructional Paraprofessional Roque Shearer PA-C Estimated Blood Loss 50 Findings See Below Stable, minimally displaced, and impacted femoral neck fracture stabilized with 3 (75x2, 85 mm) Synthes 7.3 short-thread cannulated screws with a single washer on the posteriorinferior crew. Specimens none Anesthesia Type General Complications none Disposition Accompanied Patient To Recovery: No Disposition: Recovery Room Indications 89-year-old female sustained fall resulting in a minimally displaced and impacted left femoral neck fracture. I discussed the diagnosis, prognosis, and treatment options. I did recommend cannulated screw fixation to stabilize the fracture versus hemiarthroplasty. The risk benefits and alternatives were explained in detail. The patient and her daughter were agreeable to proceed. Informed consent was obtained. Description of Procedure On the day of surgery should be was greeted in the preoperative holding area and the informed consent was reviewed and confirmed. The surgical site was then identified by the patient and signed by myself. The patient was taken to the operating placed by the OR table and anesthesia was induced. The patient is then positioned on the fracture table. All myrna prominences were well padded. The operative foot was placed in the fracture boot with abundant padding. The well leg was secured. We then positioned the lower extremities in a scissor fashion with a non-op leg flexed down to allow visualization with fluoroscopy which was confirmed before we prepped and draped. Surgical timeout was called and verified by all present. Antibiotics were infused, and equipment was available and functional. The procedure was initiated with fluoroscopic evaluation of the fracture. The leg was then prepped and draped in usual sterile fashion. Surgical timeout was confirmed. Surgery was initiated by placement of the pin on the skin to determine trajector y and placement for the first most inferior screw. The wire was sent towards the femoral head across the fracture under fluoroscopic visualization in multiple planes of fluoroscopy to confirm position. A 4 cm incision was made from the pin to proximal, through and through the IT band. Additional pins for the anterior superior and posterior superior placements were directed under fluoroscopic guidance. Trajectory was evaluated on AP and lateral views. Screw lengths were determined using the guide down to bone. The appropriate screw was then loaded onto the guidewire with a washer and directed first under power and then by hand under fluoroscopic evaluation for depth. The most inferior screw did not gain good purchase and cannot be seated firmly in the lateral cortex, so it was removed. The washer was taken off. The screw was then replaced and gained good purchase and seated well. The posterior inferior screw seemed to be too long, so it was swapped for a shorter screw at 75 mm. Fluoroscopy was used once again to confirm position and no cortical break out of the screws. They appeared to be in acceptable alignment. The wounds were then thoroughly irrigated with bulb syringe and normal saline. The IT band was approximated with #1 Vicryl suture. The dermal layer was approximated using 2-0 Vicryl suture. The final skin closure was completed with joann. Wounds were dressed with sterile Xeroform, sterile gauze, and ABDs, contained by Ioban dressing. The patient tolerated procedure well, awoke from anesthesia without complication, was extubated in the operating room, and transferred to the PACU in stable condition. Disposition: The patient should be be weightbearing as tolerated and can mobilize with PT/OT immediately. 24 hours of antibiotic prophylaxis should be continued. VTE chemoprophylaxis should be prescribed for at least 6 weeks. Dressing can be changed at postop day 3, or postop day 2 if prepping for discharge that day. Physician doctor assistant attestation: Yunior Shearer PA-C was present and scrubbed for the duration of the case. Skilled assistance was essential to prepping/draping, patient positioning, retraction, and assistance with wound closure. I attest to the content of the Intraoperative Record and any orders documented therein. Any exceptions are noted below.
[2024-10-29] MEDS: fentaNYL citrate PF 100 MCG/2 ML VIAL IV PRN (17:19)
--- NOTE | 2024-10-29 17:39 | Anesthesiology Progress Note ---
Date of Service October 29, 2024 Anesthesia Post Procedure Vital Signs Vital Signs: Temp Pulse Pulse Pulse Resp BP Pulse Ox 10/29/24 17:35 70 16 173/77 H 95 10/29/24 17:25 70 12 184/75 H 92 10/29/24 17:15 70 21 179/75 H 100 10/29/24 17:06 97.9 F 70 16 183/89 H 99 10/29/24 15:11 97.3 F L 91 H 20 109/68 92 10/29/24 14:57 99.0 F 71 18 201/71 H 93 10/29/24 11:00 98.1 F 70 14 168/76 H 99 10/29/24 08:00 10/29/24 07:24 97.5 F L 70 14 175/82 H 98 10/29/24 03:00 97.5 F L 69 16 136/76 92 10/28/24 23:41 97.5 F L 70 16 134/78 94 10/28/24 21:18 97.9 F 73 16 155/97 H 92 10/28/24 20:36 74 10/28/24 18:20 10/28/24 18:19 70 20 152/64 H 95 Pulse Ox O2 Del Method O2 Flow Rate 10/29/24 17:35 Nasal Cannula 3 10/29/24 17:25 Nasal Cannula 3 10/29/24 17:15 Oxymask 6 10/29/24 17:06 Oxymask 6 10/29/24 15:11 Room Air 10/29/24 14:57 Room Air 10/29/24 11:00 Nasal Cannula 2 10/29/24 08:00 Nasal Cannula 2 10/29/24 07:24 Nasal Cannula 2 10/29/24 03:00 Nasal Cannula 2 10/28/24 23:41 Nasal Cannula 2 10/28/24 21:18 Room Air 10/28/24 20:36 10/28/24 18:20 96 10/28/24 18:19 Room Air Pain Intensity Left Leg: Pain Intensity: 6 Left Hip: Pain Intensity: 5 Transfer of Care Handoff Completed per policy Notes Mental Status: alert / awake / arousable and participated in evaluation Patient Amnestic to Procedure: Yes Nausea / Vomiting: adequately controlled Pain: adequately controlled Airway Patency, RR, SpO2: stable & adequate BP & HR: stable & adequate Hydration State: stable & adequate Anesthetic Complications: no major complications apparent and Pt Satisfied with anesthetic care
--- NOTE | 2024-10-29 18:24 | Billing Data ---
Date of Service October 29, 2024 Coding Level of Care Code 95179 SUB INP/OBS CARE
--- NOTE | 2024-10-29 19:21 | XRay Report ---
EXAM: Radiographs of the Left Hip 2 Views INDICATION: Postop TECHNIQUE: AP and crosstable lateral view obtained. COMPARISON: No relevant prior studies available. FINDINGS: Limitations: None. Bones/joints: There are 3 screws in the proximal femur which are intact and well-seated. There is deformity of the femoral neck consistent with fracture. Alignment anatomic. No dislocation. Soft tissues: There is expected soft tissue swelling and gas lateral thigh with skin joann in place. Vasculature: Atherosclerosis noted. IMPRESSION: Satisfactory appearance of internal fixation screws proximal left femur. ACT 112: N/A Electronically signed by Yaneth Calle 10-29-2024 7:21 PM
[2024-10-29] MEDS: ceFAZolin 1000MG 1,000 MG/7.5 ML SYR IV SCH (21:29)
--- NOTE | 2024-10-30 06:39 | Hospitalist Progress Note ---
Date of Service October 30, 2024 Assessment & Plan (1) Closed left hip fracture: (2) Paroxysmal atrial fibrillation: (3) Diabetes mellitus, type 2: (4) Hyperthyroidism: (5) Depression: (6) Adenocarcinoma of colon: Plan Anastasiia is a 89-year-old female with ground-level fall sustaining left hip fracture with surgical repair on 10/29 by [facility]. Pt with stable vitals, CBC, and CMP. Pain appears well controlled with IV fentanyl and PO tylenol. Other chronic problems include diabetes, atrial fibrillation, hyperthyroidism, previous vertebral fractures, permanent pacemaker and history of colon cancer. #Left hip fracture - Holding Eliquis / in prep for surgical procedure - She will have SCDs for DVT prevention - IV fentanyl, PO tylenol and PO oxycodone for pain control - PT/OT evaluation scheduled for today, awaiting DC recommendations # History of atrial fibrillation - hold Eliquis, will resume following surgery - continue metoprolol and diltiazem for rate control. # Hypertension - Losartan held avoid orthostatic hypotension, will continue holding due to normal/low BPs - May resume post op day 2, pending BP tends # Diabetes mellitus Pt has returned to eating as previous - Holding metformin - Re started Glargine at 16 units hs - Continue Sliding scale for insulin # Hypothyroidism - continue methimazole # Anxiety/depression - Continue alprazolam and escitalopram Diet- DM2 carb counting Code- DNR/DNI Dispo- med/surg Admission and Anticipated Discharge Date Admission Date: October 28, 2024 Supervising Physician Co-Signing Physician Notes Patient was seen and examined independently I discussed the case with Jenny Nava PGY1 I reviewed pertinent past medical social family history and also the plan of care and agree with the plan of care. Pleasantly confused in the company of her family scheduled for surgery no focal problems or complaints Cardiac exam is regular though history of atrial fibrillation is not shortened but tender to examination 89-year-old female with ground-level fall sustaining left hip fracture patient will be seen by [facility] orthopedics.. Other chronic problems include diabetes atrial fibrillation hypothyroidism previous vertebral fractures permanent pacemaker and history of colon cancer. #Left hip fracture patient will be brought in our facility EKG and chest x-ray will be undertaken. will resume eilquis at appropriate post op time History of atrial fibrillation,resume 10/31 her Eliquis dose continue metoprolol and diltiazem for rate control. History hypertension patient takes losartan this will be held on postop day 1 to avoid orthostatic hypotension Diabetes mellitus. Patient typically takes glargine and metformin, (holding metformin) will have the patient on sliding scale insulin because of consideration of n.p.o. status will not have long-acting insulin at this point time. For her hypothyroidism continue methimazole Patient takes alprazolam and escitalopram for anxiety depression is to be continued Any exceptions will be noted below Subjective Anastasiia is an 89 yo female with PMH of paroxysmal a-fib, cardiac pacemaker, hyperthyroidism, HTN, and T2DM presented to ED s/p fall at her home. Pt lives at the [facility]. Pt found to have left closed hip fracture on XR and underwent surgical repair 10/29. This morning, Pt reports her pain is under control with current pain medications. She states she ate after surgery last night and did not have nausea or vomiting. Pt is no longer wearing oxygen and denies SOB. Pt denies CP, abdominal pain, nausea, dizziness, headaches Review of Systems Review of Systems: As per HPI Physical Exam Physical Exam: General: The patient appeared well nourished and normally developed. HEENT: Head exam is normocephalic atraumatic. Neck is without JVD, thyromegaly, or carotid bruits. Respiratory: No increased work of breathing noted. Lungs are clear to auscultation, no focal loss of breath sounds Cardiac: Regular rhythm, no murmur noted, cardiac pacemaker at left upper chest is without tenderness Abdominal: Non distended, normal bowel sounds, soft non tender, no masses Extremities: Nonedematous and both pedal pulses are present Neurologic: Alert and oriented, no focal loss of strength or sensation Skin: Warm, dry, no rashes Psych: Without concerns for anxiety or depression. Results & Data Results & Data Vital Signs (Past 12 Hours) Vital Signs Temp Pulse Pulse Pulse Resp BP Pulse Ox 10/30/24 03:00 37.1 C 74 17 135/75 96 10/29/24 23:07 36.7 C 73 17 142/66 H 99 10/29/24 22:26 10/29/24 21:58 70 10/29/24 21:00 36.7 C 70 17 181/78 H 99 10/29/24 20:00 37.0 C 71 20 188/83 H 92 O2 Del Method O2 Flow Rate 10/30/24 03:00 Nasal Cannula 2 10/29/24 23:07 Nasal Cannula 2 10/29/24 22:26 Nasal Cannula 2 10/29/24 21:58 10/29/24 21:00 Nasal Cannula 2 10/29/24 20:00 Nasal Cannula 2.5 Resident Activity Tracking Resident Involvement: Resident Care Provided Care Provided: Adult Hospital Medicine
[2024-10-30 07:27] LABS: Basophils # (auto) 0.01 K/uL (0.00-0.20); Basophils % (auto) 0.1 %; Hematocrit (blood only) 37.8 % (37.0-47.0); Hemoglobin 12.1 g/dl (12.0-16.0); Immature Granulocytes # (auto) 0.03 K/uL (0.01-0.20); Immature Granulocytes % (auto) 0.4 %; Lymphocytes # (auto) 0.54 K/uL (1.20-3.40); Lymphocytes % (auto) 6.5 %; Mean Corpuscular Hemoglobin 31.3 pg (25.0-34.0); Mean Corpuscular Volume 97.7 fL (80.0-100.0); Mean Platelet Volume 9.2 fL (9.4-12.4); Monocytes # (auto) 0.77 K/uL (0.11-0.59); Monocytes % (auto) 9.2 %; Neutrophils # (auto) 7.01 K/uL (1.40-6.50); Neutrophils % (auto) 83.8 %; Platelet Count 219 K/uL (130-400); RDW Coefficient of Variation 13.7 % (11.5-14.5); RDW Standard Deviation 49.2 fL (36.4-46.3); Red Blood Count 3.87 M/uL (4.20-5.40); White Blood Count 8.36 K/ul (4.8-10.8)
[2024-10-30 08:04] LABS: Albumin Globulin Ratio 1.2 (0.9-2); Albumin Level 3.7 gm/dl (3.4-5.0); BUN Creatinine Ratio 27.4 (10-20); Bilirubin,Total 0.5 mg/dl (0.2-1.0); Calcium 8.1 mg/dl (8.6-10.3); Creatinine Clr Calc Pharmacy 35.9 ml/min; Potassium 4.6 mmol/L (3.5-5.1); Total Protein 6.7 gm/dl (6.0-8.3)
--- NOTE | 2024-10-30 08:18 | Fluoroscopy Report ---
FL hip LT 2-3V CLINICAL HISTORY: Left hip cannulated screwsacute left hip fracture COMPARISON STUDY: Radiographs October 28, 2024 FLUOROSCOPY TIME: 82 seconds FLUOROSCOPY IMAGES: 5 EXPOSURE DOSE: 10.46 mGy FINDINGS: Status post placement of 3 cannulated screws fixating the acute proximal femoral fracture. Screws appear intact. Satisfactory alignment. IMPRESSION: Fluoroscopic assistance as above. ACT 112: Negative or not required by law. Electronically signed by: Roque Duarte M.D. 10/30/2024 8:16 AM
[2024-10-30] MEDS: oxyCODONE HCL IR 5 MG TAB (IMMEDIATE RELEASE) PO PRN (09:58)
--- NOTE | 2024-10-30 11:46 | Orthopedic Progress Note ---
Date of Service October 30, 2024 Assessment & Plan (1) Closed left hip fracture: (2) Status post hip surgery: Plan 89-year-old female POD# 1 s/p left femoral neck fracture fixation with cannulated screws. Plan: 1. DVT prophylaxis w/ EBONI hose x 6 weeks postop. 2. PT/OT as tolerated. WBAT on LLE. 3. Pain relatively well-controlled continue current regimen. 4. Medical management as per the primary medicine service. 5. Dressing can be changed on postop day 3, or postop day 2 if prepping for discharge that day. Plan for staple removal at 2-week postop check. 6. Disposition - [facility]; per case management, no Auth is needed since the patient is Medicare. 7. Follow-up outpatient with Dr. Singh's team 2 weeks postop. Subjective Patient is POD# 1 s/p left femoral neck fracture fixation with cannulated screws by Dr. Singh on 10/29/24. Patient says she is having some pain this morning, but the pain medications do seem to be helping. Denies CP, SOB, N/V, L LE paresthesia. She was residing at the [facility] when her fall occurred, and she and her family are preferring that she goes to [facility] once discharged. Review of Systems All systems reviewed & are unremarkable except as noted in HPI & below. Physical Exam GENERAL: AA&Ox3, NAD. Pleasant, affect is calm. Lying in bed and appears comfortable. RESPIRATORY: Normal respiratory effort with no signs of distress. CHEST/AXILLA: Chest movement symmetrical. No deformities noted. CARDIOVASCULAR: No edema noted. SKIN: [place], warm and dry. MS/EXTREMITY: Hip dressing c/d/i. EBONI hose donned. Thigh is soft, supple. Leg lengths are equal. + ankle dorsi/plantarflexion. NVI distally. Calf soft/NT. PT/DP pulses intact, 2+. Results & Data Results & Data Laboratory Results . Laboratory Results - last 24 hr 10/29/24 10/29/24 10/29/24 15:10 17:16 19:56 WBC RBC Hgb Hct MCV MCH MCHC RDW Std Deviation RDW Coeff of Cruz Plt Count MPV Immature Gran % (Auto) Neut % (Auto) Lymph % (Auto) [place] % (Auto) Eos % (Auto) Baso % (Auto) Neut # (Auto) Lymph # (Auto) [place] # (Auto) Eos # (Auto) Baso # (Auto) Immature Gran # (Auto) Sodium Potassium Chloride Carbon Dioxide Anion Gap BUN Creatinine Est Cr Clr Drug Dosing eGFR BUN/Creatinine Ratio Glucose POC Glucose 114 H 127 H 164 H Calcium Total Bilirubin AST ALT Alkaline Phosphatase Total Protein Albumin Globulin Albumin/Globulin Ratio 25-OH Vitamin D Total 10/30/24 10/30/24 10/30/24 06:54 07:49 07:50 WBC 8.36 RBC 3.87 L Hgb 12.1 Hct 37.8 MCV 97.7 MCH 31.3 MCHC 32.0 RDW Std Deviation 49.2 H RDW Coeff of Cruz 13.7 Plt Count 219 MPV 9.2 L Immature Gran % (Auto) 0.4 Neut % (Auto) 83.8 Lymph % (Auto) 6.5 [place] % (Auto) 9.2 Eos % (Auto) 0.0 Baso % (Auto) 0.1 Neut # (Auto) 7.01 H Lymph # (Auto) 0.54 L [place] # (Auto) 0.77 H Eos # (Auto) 0.00 Baso # (Auto) 0.01 Immature Gran # (Auto) 0.03 Sodium 135 L Potassium 4.6 Chloride 101 Carbon Dioxide 28 Anion Gap 6 BUN 29 H Creatinine 1.06 Est Cr Clr Drug Dosing 35.9 eGFR 50.84 BUN/Creatinine Ratio 27.4 H Glucose 342 H* POC Glucose 347 H* 363 H* Calcium 8.1 L Total Bilirubin 0.5 AST 11 L ALT 8 Alkaline Phosphatase 65 Total Protein 6.7 Albumin 3.7 Globulin 3.0 Albumin/Globulin Ratio 1.2 25-OH Vitamin D Total 9.8 L 10/30/24 10/30/24 10/30/24 08:42 11:45 11:45 WBC RBC Hgb Hct MCV MCH MCHC RDW Std Deviation RDW Coeff of Cruz Plt Count MPV Immature Gran % (Auto) Neut % (Auto) Lymph % (Auto) [place] % (Auto) Eos % (Auto) Baso % (Auto) Neut # (Auto) Lymph # (Auto) [place] # (Auto) Eos # (Auto) Baso # (Auto) Immature Gran # (Auto) Sodium Potassium Chloride Carbon Dioxide Anion Gap BUN Creatinine Est Cr Clr Drug Dosing eGFR BUN/Creatinine Ratio Glucose POC Glucose 326 H* 301 H* 274 H Calcium Total Bilirubin AST ALT Alkaline Phosphatase Total Protein Albumin Globulin Albumin/Globulin Ratio 25-OH Vitamin D Total Diagnostic Findings Hip X-Ray 10/29/24 13:00 FL hip LT 2-3V CLINICAL HISTORY: Left hip cannulated screwsacute left hip fracture COMPARISON STUDY: Radiographs October 28, 2024 FLUOROSCOPY TIME: 82 seconds FLUOROSCOPY IMAGES: 5 EXPOSURE DOSE: 10.46 mGy FINDINGS: Status post placement of 3 cannulated screws fixating the acute proximal femoral fracture. Screws appear intact. Satisfactory alignment. IMPRESSION: Fluoroscopic assistance as above. ACT 112: Negative or not required by law. Electronically signed by: Roque Duarte M.D. 10/30/2024 8:16 AM Hip X-Ray 10/29/24 18:53 EXAM: Radiographs of the Left Hip 2 Views INDICATION: Postop TECHNIQUE: AP and crosstable lateral view obtained. COMPARISON: No relevant prior studies available. FINDINGS: Limitations: None. Bones/joints: There are 3 screws in the proximal femur which are intact and well-seated. There is deformity of the femoral neck consistent with fracture. Alignment anatomic. No dislocation. Soft tissues: There is expected soft tissue swelling and gas lateral thigh with skin joann in place. Vasculature: Atherosclerosis noted. IMPRESSION: Satisfactory appearance of internal fixation screws proximal left femur. ACT 112: N/A Electronically signed by Yaneth Calle 10-29-2024 7:21 PM PG Care Time/CCT Total # of Minutes Spent Total Time Spent with Patient: Total time spent is greater than 50% in coordination of care (as documented) at patient's floor/unit and/or counseling patient: Coding [place] [address] SUB INP/OBS CARE 2/35MIN Patient Type Established History Expanded Problem Focused Exam Expanded Problem Focused Medical Decision Making Low Complexity Diagnoses Closed left hip fracture S72.002A Status post hip surgery Z98.890 Additional Codes Fx Hip/Femur - Proximal femur/neck: Proximal femur/neck ([id number])
--- NOTE | 2024-10-30 17:37 | Billing Data ---
Date of Service October 30, 2024 Coding Level of Care Code 91267 SUB INP/OBS CARE
[2024-10-30] MEDS: LANTUS PER UNIT CHARGE SQ SCH (20:12)
--- NOTE | 2024-10-31 06:49 | Hospitalist Progress Note ---
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 Pt with stable vitals, CBC, and CMP. Pain appears well controlled with and PO oxycodone and tylenol. Other chronic problems include diabetes, atrial fibrillation, hyperthyroidism, previous vertebral fractures, permanent pacemaker and history of colon cancer. Later this morning, pt began having reported hallucinations and episodic confusion. Plan to discharge to rehab facility was put on hold. #Closed hip fracture/Age related osteoporosis with pathological hip fracture - She will have SCDs for DVT prevention, Restarted Eliquis 2.5 mg - PO tylenol and PO oxycodone for pain control - Continued PT/OT DC recommendations- acute rehab - Plan for discharge to [facility] on 11/01 # History of atrial fibrillation - Resumed Eliquis 2.5 mg - continue metoprolol and diltiazem for rate control. # Hypertension - Restarted Losartan 25mg # Diabetes mellitus Pt has returned to eating as previous - Holding metformin - Continue Glargine at 16 units hs - Continue Sliding scale for insulin # Hypothyroidism - continue methimazole # Anxiety/depression - Continue alprazolam and escitalopram # Vitamin D deficiency Vit D level is 9.8 - Added 25mcg D3 daily Diet- DM2 carb counting Code- DNR/DNI Dispo- med/surg Admission and Anticipated Discharge Date Admission Date: October 28, 2024 Supervising Physician Co-Signing Physician Notes Patient was seen and examined independently I discussed the case with Jenny Nava PGY1 I reviewed pertinent past medical social family history and also the plan of care and agree with the plan of care. Pleasantly confused in the company of her family scheduled for surgery no focal problems or complaints Cardiac exam is regular though history of atrial fibrillation is not shortened but tender to examination 89-year-old female with ground-level fall sustaining left hip fracture patient will be seen by [facility].. Other chronic problems include diabetes atrial fibrillation hypothyroidism previous vertebral fractures permanent pacemaker and history of colon cancer. #Left hip fracture:Patient encephalopathic and lethargic, will cut back opiates and place on tylenol QID. Expect that patient should improve with limited opiates will resume eilquis History of atrial fibrillation,resume 3/6 her Eliquis dose continue metoprolol and diltiazem for rate control. History hypertension patient takes losartan this will be held on postop day 1 to avoid orthostatic hypotension Diabetes mellitus. Patient typically takes glargine and metformin, (holding metformin) will have the patient on sliding scale insulin because of consideration of n.p.o. status will not have long-acting insulin at this point t isabel. For her hypothyroidism continue methimazole Patient takes alprazolam and escitalopram for anxiety depression is to be continued Any exceptions will be noted below Subjective Anastasiia is an 89 yo female with PMH of paroxysmal a-fib, cardiac pacemaker, hyperthyroidism, HTN, and T2DM presented to ED s/p fall at her home. Pt lives at the [facility]. Pt found to have left closed hip fracture on XR and underwent surgical repair 3/. This morning, pt reports her pain is under control with current pain medications. She states her appetite has been good after surgery and does not have nausea or vomiting. She notes tenderness at left ear and medial right ankle, places she thinks she may have hurt herself when she fell. Pt denies CP, abdominal pain, SOB, nausea, vomiting, dizziness, or headaches Review of Systems Review of Systems: As per HPI Physical Exam Physical Exam: General: The patient appeared well nourished and normally developed. HEENT: Head exam is normocephalic atraumatic. Neck is without JVD, thyromegaly, or carotid bruits. Respiratory: No increased work of breathing noted. Lungs are clear to auscultation, no focal loss of breath sounds Cardiac: Regular rhythm, no murmur noted, cardiac pacemaker at left upper chest is without tenderness Abdominal: Non distended, normal bowel sounds, soft non tender, no masses Extremities: Nonedematous and both pedal pulses are present. Medial right ankle with dry bandage, no bruising noted. Tender to palpation over bandaged area. Neurologic: Alert and oriented x 3, no focal loss of strength or sensation Skin: Warm, dry, no rashes Results & Data Results & Data Vital Signs (Past 12 Hours) Vital Signs Temp Pulse Pulse Resp BP Pulse Ox O2 Del Method 10/31/24 03:14 36.4 C L 70 16 145/75 H 90 Room Air 10/30/24 22:55 36.4 C L 69 18 134/77 90 Room Air 10/30/24 22:39 70 10/30/24 20:00 Room Air 10/30/24 19:49 36.7 C 70 18 106/67 90 Room Air Resident Activity Tracking Resident Involvement: Resident Care Provided Care Provided: Adult Hospital Medicine
[2024-10-31 06:57] LABS: Albumin Globulin Ratio 1.2 (0.9-2); Albumin Level 3.6 gm/dl (3.4-5.0); BUN Creatinine Ratio 35.1 (10-20); Bilirubin,Total 0.4 mg/dl (0.2-1.0); Calcium 7.8 mg/dl (8.6-10.3); Creatinine Clr Calc Pharmacy 33.9 ml/min; Globulin 3.1 gm/dl (2.5-4.0); Potassium 4.4 mmol/L (3.5-5.1); Total Protein 6.7 gm/dl (6.0-8.3)
--- NOTE | 2024-10-31 07:38 | Orthopedic Progress Note ---
Date of Service October 31, 2024 Assessment & Plan (1) Status post hip surgery: POD 2 from left hip cannulated screw fixation. Pain reasonably controlled. Having some left ankle pain. I looked at her previous xrays which included a tib/fib xray, no obvious abnormality at the ankle. See how she does today with PT. If continues to have ankle pain, may need to get some dedicated ankle xrays. PT/OT: wbat dvt prophylaxis: teds, scd's, eliquis BID d/c planning: she is hoping to go to [facility]. discussed with Dr Tramaine Bennett . 89 year old patient POD 2 from cannulated screw fixation of left femoral neck fx. Having some hip pain but controlled, oxycodone helped. She is c/o some left lateral ankle pain. Review of Systems All systems reviewed & are unremarkable except as noted in HPI & below. Physical Exam . alert and oriented. NAD. VSS Left leg: hip dressing clean, dry, intact. Thigh soft, nontender. Able to dorsiflex and plantarflex. No obvious swelling or tenderness around the ankle at this time. Results & Data Results & Data Laboratory Results . Diagnostic Findings . PG Care Time/CCT Total # of Minutes Spent Total Time Spent with Patient: Total time spent is greater than 50% in coordination of care (as documented) at patient's floor/unit and/or counseling patient: Coding Level of Care Code 04811 Post Operative Follow-Up Diagnoses Status post hip surgery Z98.890
[2024-10-31] MEDS: APIXABAN 2.5 MG TAB PO SCH (10:28)
[2024-10-31] MEDS: CHOLECALCIFEROL 25 MCG (1000 UNITS) TAB PO SCH (14:23)
[2024-10-31] MEDS ORDERED: oxyCODONE HCL IR 5 MG TAB (IMMEDIATE RELEASE) PO PRN (14:36)
[2024-10-31] MEDS: ACETAMINOPHEN 325 MG TAB PO SCH (17:54)
--- NOTE | 2024-10-31 23:10 | Billing Data ---
Date of Service October 31, 2024 Coding Level of Care Code 82618 SUB INP/OBS CARE MIN
[2024-11-01 06:33] LABS: Hematocrit (blood only) 34.8 % (37.0-47.0); Hemoglobin 11.2 g/dl (12.0-16.0); Mean Corpuscular Hemoglobin 31.2 pg (25.0-34.0); Mean Corpuscular Hgb Conc 32.2 g/dL (32.0-36.0); Mean Corpuscular Volume 96.9 fL (80.0-100.0); Mean Platelet Volume 9.1 fL (9.4-12.4); Platelet Count 208 K/uL (130-400); RDW Coefficient of Variation 13.9 % (11.5-14.5); RDW Standard Deviation 49.5 fL (36.4-46.3); Red Blood Count 3.59 M/uL (4.20-5.40); White Blood Count 8.74 K/ul (4.8-10.8)
--- NOTE | 2024-11-01 06:38 | Discharge Summary ---
Date of Service November 01, 2024 Admission HPI Per Admitting Provider 89-year-old female who had a ground-level fall while the personal-alf, the Kimberly, she has multiple injuries mostly focused on her left hip. There is question of left hip fracture on pelvic x-ray and patient is admitted to hospital for geriatric fracture program with possible surgical repair on 10/27/2024. Patient has a medical history including a previous history of colon cancer diabetes atrial fibrillation with the permanent pacemaker and hypothyroidism. Principal Diagnosis Left hip fracture Discharge Exam General: The patient appeared well nourished and normally developed. HEENT: Head exam is normocephalic atraumatic. Neck is without JVD, thyromegaly, or carotid bruits. Respiratory: No increased work of breathing noted. Lungs are clear to auscultation, no focal loss of breath sounds Cardiac: Regular rhythm, no murmur noted, cardiac pacemaker at left upper chest is without tenderness Abdominal: Non distended, normal bowel sounds, soft non tender, no masses Extremities: Both pedal pulses are present. Left lateral hip with dry bandage in place. Minimal edema. Medial right ankle with dry bandage. Neurologic: Alert and oriented x 3, no focal loss of strength or sensation Skin: Warm, dry, no rashes Discharge Data Allergies Allergy/AdvReac Type Severity Reaction Status Date / Time levofloxacin AdvReac Intermediate Muscle Verified 08/06/24 09:15 pain (difficulty with walking) nitrofurantoin AdvReac Intermediate headache/GI Verified 08/06/24 09:15 [From Macrobid] upset/nausea Consultations 10/28/24 15:01 ED Decision to Admit Stat 10/28/24 17:51 Consult Anesthesiology Routine Consult Orthopedic Surgery Routine Procedures Performed Operation Date: 10/29/24 14:20 Actual Procedures p Left Hip Percutaneous Cannulated Screw Fixation(Left) - Zion Singh MD Ordered Studies 10/28/24 12:04 CT cervical spine wo con Stat CT head/brain wo con Stat 10/29/24 13:00 FL hip LT 2-3V Routine Hospital Course (1) Closed left hip fracture: (2) 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 orthopedics. Pt with stable vitals, CBC, and CMP. Pain appears well controlled with and PO tylenol, she has not taken PO oxycodone. Other chronic problems include diabetes, atrial fibrillation, hyperthyroidism, previous vertebral fractures, permanent pacemaker and history of colon cancer. Pt has had intermittent reported hallucinations and episodic confusion over the last 2 days. However, she is cooperative and ready to transfer to inpatient rehabilitation. #Closed hip fracture/Age related osteoporosis with pathological hip fracture - She will have SCDs for DVT prevention, and home Eliquis 2.5 mg - PO tylenol for pain control. Has PO oxycodone PRN, but has not been using - Continued PT/OT DC recommendations- acute rehab - Plan for discharge to [facility] on 11/01 # History of atrial fibrillation - Continue Eliquis 2.5 mg - continue metoprolol and diltiazem for rate control. # Hypertension - Continue Losartan 25mg # Diabetes mellitus Pt has returned to eating as previous - Holding metformin - Continue Glargine at 16 units hs - Continue Sliding scale for insulin # Hypothyroidism - continue methimazole # Anxiety/depression - Continue alprazolam and escitalopram # Vitamin D deficiency Vit D level is 9.8 - Added 25mcg D3 daily Diet- DM2 carb counting Code- DNR/DNI Dispo- med/surg Total Time Total Time Spent Total Time Spent (In Minutes): As per attending physician's attestation Discharge Plan Discharge Items Patient Disposition: Transfer Inpatient Rehab Fac Reason For Visit: LEFT HIP FRACTURE Discharge Diagnosis: Left hip fracture Activity: Per Instructions section Weightbearing: Full weightbearing Non-emergency contact: Primary Care Provider Call non-emergency contact if: your symptoms worsen Follow-up/Referrals: PCP,NO [Primary Care Provider] - Diet: Carb Consistent or DM2 Addtl Attending Provider Instructions: Anastasiia is a 89-year-old female with ground-level fall sustaining left hip fracture with surgical repair on 10/29 by [facility] orthopedics. Pt with stable vitals, CBC, and CMP. Pain appears well controlled with and PO oxycodone and tylenol. Other chronic problems include diabetes, atrial fibrillation, hyperthyroidism, previous vertebral fractures, permanent pacemaker and history of colon cancer. Pt has had intermittent disorientation starting 11/01, but is easily reorientated and cooperative #Left hip fracture - She will have SCDs and TEDs for DVT prevention, Restarted Eliquis 2.5 mg - PO tylenol and PO oxycodone for pain control - Continued PT/OT DC recommendations- acute rehab May fully weightbear as tolerated Routine wound care left hip/leg incisions. Remove dressing for hygiene. Place dry dressing over joann and change daily. # History of atrial fibrillation - Continue Eliquis 2.5 mg - continue metoprolol and diltiazem for rate control. # Hypertension - Continue Losartan 25mg # Diabetes mellitus Pt has returned to eating as previous - Holding metformin - Continue Glargine at 16 units hs - Continue Sliding scale for insulin # Hypothyroidism - continue methimazole # Anxiety/depression - Continue alprazolam and escitalopram # Vitamin D deficiency Vit D level is 9.8 - Added 25mcg D3 daily Diet- DM2 carb counting Code- DNR/DNI Dispo- med/surg Pending Studies at Discharge: No Stand-Alone Forms: My [facility] Skilled Items Patient informed of condition?: Yes DNR: Yes Discharge Level of Care: Acute rehab Communicable Disease: No Discharge Prognosis: Improving Lines: None Urinary Catheter: No Medications and DC Order Prescriptions: New famotidine 20 mg Tablet 20 mg PO BID 30 Days Qty: 60 0RF cholecalciferol (vitamin D3) 25 mcg (1,000 unit) Capsule 25 mcg PO QAM 30 Days Qty: 30 0RF Continued solifenacin [Vesicare] 5 mg tablet 5 mg PO QAM metformin 500 mg Tablet 500 mg PO BID insulin glargine [Lantus U-100 Insulin] 100 unit/mL Solution 16 unit SUBCUT HS alprazolam [Xanax] 0.25 mg Tablet 0.25 mg PO HS Rx Instructions: take with 2 prn tylenol acetaminophen 500 mg Tablet 1,000 mg PO Q6H PRN (Reason: Pain) losartan 25 mg Tablet 25 mg PO QAM Qty: 30 0RF Eliquis 5 mg tablet 2.5 mg PO BID Rx Instructions: Patient states she takes 1/2 pill bid.. atorvastatin 20 mg tablet 20 mg PO QAM Prolia 60 mg/mL syringe 60 mg SUBCUT .EVERY 6 MONTHS metoprolol succinate 100 mg tablet extended release 24 hr 100 mg PO QAM Gemtesa 75 mg tablet 75 mg PO QAM methimazole 5 mg Tablet 5 mg PO UD Rx Instructions: TAKE MON, MON & MON take 2 tablets twice a day on MONDAYS,2 tablets once a day on WEDNESDAYS, take 2 tablets twice a day on FRIDAYS diltiazem HCl 180 mg Capsule,Extended Release 24hr 180 mg PO QAM Qty: 30 0RF escitalopram oxalate 20 mg Tablet 20 mg PO QAM Qty: 30 0RF Discharge Orders: Discharge Order (Routine); Ordered 11/01/24 Ordered By: Jenny Nava Admission Data Admit Date/Time: 10/28/24 15:14 Attending Provider: Dae Macdonald Admit Provider: Evert Calvo Primary Care Provider: PCP,NO Other Providers: [facility]; Contreras Pleitez Other Interventions: Discharge Summary Assessment (RN) Last Done: 11/01/24 13:28 Supervising Physician Co-Signing Physician Notes Patient was seen and examined independently I discussed the case with Jenny Nava PGY1 I reviewed pertinent past medical social family history and also the plan of care and agree with the plan of care. Pleasantly confused in the company of her family scheduled for surgery no focal problems or complaints Cardiac exam is regular though history of atrial fibrillation is not shortened but tender to examination 89-year-old female with ground-level fall sustaining left hip fracture patient will be seen by [facility] orthopedics.. Other chronic problems include diabetes atrial fibrillation hypothyroidism previous vertebral fractures permanent pacemaker and history of colon cancer. #Left hip fracture:Patient encephalopathic and lethargic, will cut back opiates and place on tylenol QID. Expect that patient should improve with limited opiates will resume eilquis History of atrial fibrillation,resume 3/6 her Eliquis dose continue metoprolol and diltiazem for rate control. History hypertension patient takes losartan this will be held on postop day 1 to avoid orthostatic hypotension Diabetes mellitus. Patient typically takes glargine and metformin, (holding metformin) will have the patient on sliding scale insulin because of consideration of n.p.o. status will not have long-acting insulin at this point time. For her hypothyroidism continue methimazole Patient takes alprazolam and escitalopram for anxiety depression is to be continued will be discharged to rehab spent 32 minutes Any exceptions will be noted below Resident Activity Tracking Resident Involvement: Resident Care Provided Care Provided: Adult Hospital Medicine
[2024-11-01 06:57] LABS: Albumin Globulin Ratio 1.1 (0.9-2); Albumin Level 3.4 gm/dl (3.4-5.0); BUN Creatinine Ratio 34.4 (10-20); Bilirubin,Total 0.5 mg/dl (0.2-1.0); Calcium 8.1 mg/dl (8.6-10.3); Creatinine Clr Calc Pharmacy 40.6 ml/min; Potassium 4.8 mmol/L (3.5-5.1); Total Protein 6.4 gm/dl (6.0-8.3)
[2024-11-01 11:18] VITALS: BP 120/71; PULSE 69; RESP 18; TEMP 97.5
[2024-11-01 13:38] VITALS: O2SAT 96
--- NOTE | 2024-11-07 08:14 | Billing Data ---
Date of Service November 01, 2024 Coding Level of Care Code 52523 INP/OBS DISCH >30 MIN Time Spent (min) 32
== END 2024-11-01 14:09 | DRG 482 ==
LOC: ED 11:39 → EDINP 15:14 → SUATTDRO 15:14 → 2N 17:52
DX: Z95.0 Presence of cardiac pacemaker; Z85.038 Personal history of other malignant neoplasm of large intestine; M11.262 Other chondrocalcinosis, left knee; E03.9 Hypothyroidism, unspecified; Z95.828 Presence of other vascular implants and grafts; Z66 Do not resuscitate; Y92.89 Other specified places as the place of occurrence of the external cause; I48.0 Paroxysmal atrial fibrillation; E11.9 Type 2 diabetes mellitus without complications; Z79.01 Long term (current) use of anticoagulants; E55.9 Vitamin D deficiency, unspecified; Z79.4 Long term (current) use of insulin; E05.90 Thyrotoxicosis, unspecified without thyrotoxic crisis or storm; W01.0XXA Fall on same level from slipping, tripping and stumbling without subsequent striking against object, initial encounter; Z79.84 Long term (current) use of oral hypoglycemic drugs; Z86.718 Personal history of other venous thrombosis and embolism; S51.011A Laceration without foreign body of right elbow, initial encounter; Z88.1 Allergy status to other antibiotic agents; M80.052A Age-related osteoporosis with current pathological fracture, left femur, initial encounter for fracture